=== PATIENT | male | born 1955 | race Caucasian/White ===

== ENCOUNTER 2016-05-26 13:38 | Inpatient (IN) | payer OTHER ==
--- NOTE | 2016-05-26 15:10 | ED ---
Abdominal Pain HPI <Sherman Lai - Last Filed: 05/26/16 17:21> - General Source: patient, RN notes reviewed Mode of arrival: ambulatory Limitations: no limitations <Anabel Enciso - Last Filed: 05/26/16 17:29> - General Chief Complaint: Abdominal Pain Stated Complaint: Abdominal blockage Time Seen by Provider: 05/26/16 15:02 - History of Present Illness Initial Comments: 61-year-old male presents emergency department with a chief complaint of abdominal pain. Patient states this developed today. Patient has a long history of bowel obstructions and has had a resection the past. Patient states he has no nausea or vomiting. Patient states last passed gas and had a bowel movement was this morning. Patient states he was concerned because his belly feels bloated and diffusely tender so he thought that he should be seen. Patient denies any cough cold runny nose any fever chills this. Patient seen changes in bladder habits.Patient denies any recent fever, chills, shortness of breath, chest pain, back pain, nausea vomiting, numbness or tingling, dysuria or hematuria, diarrhea, headaches or visual changes, or any other current symptoms. (Anabel Enciso) - Related Data Home Medications Medication Instructions Recorded Confirmed Ascorbic Acid [Vitamin C] 1,000 mg PO BID 04/04/15 05/26/16 Calcium Carbonate/Vitamin D3 2 tab PO TID 04/04/15 05/26/16 [Calcium 600-Vit D3 400 Tablet] Multivitamins, Thera [Multivitamin] 2 tab PO BID 04/04/15 05/26/16 Selenium 200 mcg PO DAILY 04/04/15 05/26/16 Tamsulosin HCl 0.4 mg PO HS 04/20/15 05/26/16 Docusate [Colace] 100 mg PO DAILY PRN 07/05/15 05/26/16 Omeprazole [PriLOSEC] 20 mg PO AC-BRKFST 07/05/15 05/26/16 Fiber Bar 1 pack PO DAILY 05/26/16 05/26/16 Fish Oil/Dha/Epa [Fish Oil 1,200 1 cap PO DAILY 05/26/16 05/26/16 mg Fish Oil] Folic Acid 0.8 mg PO DAILY 05/26/16 05/26/16 Hyoscyamine Sulfate [Hyoscyamine 0.125 mg SL DAILY PRN 05/26/16 05/26/16 Sulfate SL] Allergies Allergy/AdvReac Type Severity Reaction Status Date / Time Penicillins Allergy Rash/Hives, Verified 05/26/16 16:08 WHEEZING Review of Systems ROS Other: All systems not noted in ROS Statement are negative. <Sherman Lai - Last Filed: 05/26/16 17:21> ROS Other: All systems not noted in ROS Statement are negative. <Anabel Enciso - Last Filed: 05/26/16 17:29> ROS Statement: Those systems with pertinent positive or pertinent negative responses have been documented in the HPI. Past Medical History Past Medical History: Cancer, Deep Vein Thrombosis (DVT), GERD/Reflux, Hyperlipidemia, Pneumonia Additional Past Medical History / Comment(s): 04-20-16 admitted with abd pain, small bowel obstruction. other past medical hx includes: BASAL CELL SKIN CA, DVT LEFT LOWER LEG, BLOOD CLOT RIGHT EYE, bronchitis , SMALL bowel obstruction , C-DIFF 2009, PNE W/SIRS,BRONCHITIS,SINUSITIS History of Any Multi-Drug Resistant Organisms: C-DIFF Date of last positivie culture/infection: 2009 MDRO Source:: Stool Past Surgical History: Adenoidectomy, Bowel Resection, Cholecystectomy, Hernia Repair, Tonsillectomy Additional Past Surgical History / Comment(s): colonoscopy/polypectomy(BENIGN), EGD,TONSILLECTOMY AND ADENOIDECTOMY X2 (AGE 1 AND AGE 12),EXPLORATORY LAP W/ LYSIS OF ADHSEIONS,DECOMPRESSION OF SMALL BOWEL, yamileth fundloplication Past Anesthesia/Blood Transfusion Reactions: No Reported Reaction Past Psychological History: No Psychological Hx Reported Additional Psychological History / Comment(s): PT LIVES WITH HIS GILBERTO, 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 Smoking Status: Never smoker Past Alcohol Use History: None Reported Additional Past Alcohol Use History / Comment(s): Patient is a lifelong nonsmoker. He does have medical marijuana card and uses daily due to his chronic back pain. He denies any street drug use. He denies any alcohol use. He is currently living at home with his . 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 He has been in the [place] and is unknown if he has asbestos EXPOSURE. . No recent travel. Past Drug Use History: None Reported, Marijuana Additional Drug Use History / Comment(s): -MEDICAL CARD - Past Family History Mother Family Medical History: Cancer Additional Family Medical History / Comment(s): Emphysema, heart problems, COLON CANCER Father Additional Family Medical History / Comment(s): COLON CA LIVER CA,MULTIPLE MYELOMA <Anabel Enciso - Last Filed: 05/26/16 17:29> General Exam <Sherman Lai - Last Filed: 05/26/16 17:21> Limitations: no limitations <Anabel Enciso - Last Filed: 05/26/16 17:29> - General Exam Comments Initial Comments: General: The patient is awake and alert, in no distress, and does not appear acutely ill. Eye: Pupils are equal, round and reactive to light, extra-ocular movements are intact; there is normal conjunctiva bilaterally. No signs of icterus. Ears, nose, mouth and throat: There are moist mucous membranes. Neck: The neck is supple, there is no tenderness. Cardiovascular: There is a regular rate and rhythm. No murmur, rub or gallop is appreciated. Respiratory: Lungs are clear to auscultation, respirations are non-labored, breath sounds are equal. No wheezes, stridor, rales, or rhonchi. Gastrointestinal: Soft, distended, non-tender abdomen without masses or organomegaly noted. There is no rebound or guarding present. No CVA tenderness. Bowel sounds are unremarkable. Back: There is no tenderness to palpation in the midline. There is no obvious deformity. No rashes noted. Musculoskeletal: Normal ROM, no tenderness, There is no pedal edema. There is no calf tenderness or swelling. Sensation intact. Pulses equal bilaterally 2+. Neurological: CN II-XII intact, There are no obvious motor or sensory deficits. Coordination appears grossly intact. Speech is normal. Skin: Skin is warm and dry and no rashes or lesions are noted. Psychiatric: Cooperative, appropriate mood & affect, normal judgment. (Anabel Enciso) Medical Decision Making - Lab Data Result diagrams: 05/26/16 15:30 05/26/16 15:30 <Sherman Lai - Last Filed: 05/26/16 17:21> - Lab Data Result diagrams: 05/26/16 15:30 05/26/16 15:30 - Radiology Data Radiology results: report reviewed, image reviewed <Anabel Enciso - Last Filed: 05/26/16 17:29> - Medical Decision Making Patient reevaluated by myself Dr. Lai. Patient does have mild abdominal distention with mild diffuse tenderness. Computed tomography scan shows dilated small bowel, cannot rule out partial small bowel obstruction. Case discussed in detail with Dr. Padilla, who will admit for Dr. reyna. Patient has previously seen Dr. Fu (Sherman Lai) 61-year-old male presents to the emergency Department chief complaint of abdominal pain. At this time the patient does appear to have a dilated small bowel with concern for partial small bowel obstruction. This time we will admit to Dr. Robin canela. Dr. Hess will be consult that we will start an NG tube as well as pain medication for the patient. Patient and family are in agreement with the plan. (Anabel Enciso) - Lab Data Lab Results 05/26/16 05/26/16 05/26/16 Range/Units 15:30 15:30 15:30 WBC 8.2 (3.8-10.6) k/uL RBC 4.82 (4.30-5.90) m/uL Hgb 14.8 (13.0-17.5) gm/dL Hct 43.3 (39.0-53.0) % MCV 89.8 (80.0-100.0) fL MCH 30.6 (25.0-35.0) pg MCHC 34.1 (31.0-37.0) g/dL RDW 13.2 (11.5-15.5) % Plt Count 201 (150-450) k/uL Neutrophils % 63 % Lymphocytes % 20 % Monocytes % 9 % Eosinophils % 4 % Basophils % 1 % Neutrophils # 5.2 (1.3-7.7) k/uL Lymphocytes # 1.7 (1.0-4.8) k/uL Monocytes # 0.7 (0-1.0) k/uL Eosinophils # 0.3 (0-0.7) k/uL Basophils # 0.1 (0-0.2) k/uL Sodium 141 (137-145) mmol/L Potassium 4.3 (3.5-5.1) mmol/L Chloride 105 (98-107) mmol/L Carbon Dioxide 27 (22-30) mmol/L Anion Gap 9 mmol/L BUN 15 (9-20) mg/dL Creatinine 0.75 (0.66-1.25) mg/dL Est GFR (MDRD) Af Amer >60 (>60 ml/min/1.73 sqM) Est GFR (MDRD) Non-Af >60 (>60 ml/min/1.73 sqM) Glucose 91 (74-99) mg/dL Plasma Lactic Acid [place] 0.8 (0.7-2.0) mmol/L Calcium 9.6 (8.4-10.2) mg/dL Total Bilirubin 0.7 (0.2-1.3) mg/dL AST 29 (17-59) U/L ALT 49 (21-72) U/L Alkaline Phosphatase 74 (38-126) U/L Total Protein 7.0 (6.3-8.2) g/dL Albumin 4.0 (3.5-5.0) g/dL Amylase <30 L (30-110) U/L Lipase <10 L (23-300) U/L Urine Color Urine Appearance (Clear) Urine pH (5.0-8.0) Ur Specific [place] (1.001-1.035) Urine Protein (Negative) Urine Glucose (UA) (Negative) Urine Ketones (Negative) Urine Blood (Negative) Urine Nitrate (Negative) Urine Bilirubin (Negative) Urine Urobilinogen (<2.0) mg/dL Ur Leukocyte Esterase (Negative) 05/26/16 Range/Units 15:30 WBC (3.8-10.6) k/uL RBC (4.30-5.90) m/uL Hgb (13.0-17.5) gm/dL Hct (39.0-53.0) % MCV (80.0-100.0) fL MCH (25.0-35.0) pg MCHC (31.0-37.0) g/dL RDW (11.5-15.5) % Plt Count (150-450) k/uL Neutrophils % % Lymphocytes % % Monocytes % % Eosinophils % % Basophils % % Neutrophils # (1.3-7.7) k/uL Lymphocytes # (1.0-4.8) k/uL Monocytes # (0-1.0) k/uL Eosinophils # (0-0.7) k/uL Basophils # (0-0.2) k/uL Sodium (137-145) mmol/L Potassium (3.5-5.1) mmol/L Chloride (98-107) mmol/L Carbon Dioxide (22-30) mmol/L Anion Gap mmol/L BUN (9-20) mg/dL Creatinine (0.66-1.25) mg/dL Est GFR (MDRD) Af Amer (>60 ml/min/1.73 sqM) Est GFR (MDRD) Non-Af (>60 ml/min/1.73 sqM) Glucose (74-99) mg/dL Plasma Lactic Acid [place] (0.7-2.0) mmol/L Calcium (8.4-10.2) mg/dL Total Bilirubin (0.2-1.3) mg/dL AST (17-59) U/L ALT (21-72) U/L Alkaline Phosphatase (38-126) U/L Total Protein (6.3-8.2) g/dL Albumin (3.5-5.0) g/dL Amylase (30-110) U/L Lipase (23-300) U/L Urine Color Yellow Urine Appearance Clear (Clear) Urine pH 6.5 (5.0-8.0) Ur Specific [place] 1.014 (1.001-1.035) Urine Protein Negative (Negative) Urine Glucose (UA) Negative (Negative) Urine Ketones Negative (Negative) Urine Blood Negative (Negative) Urine Nitrate Negative (Negative) Urine Bilirubin Negative (Negative) Urine Urobilinogen <2.0 (<2.0) mg/dL Ur Leukocyte Esterase Negative (Negative) Disposition <Sherman Lai - Last Filed: 05/26/16 17:21> Time of Disposition: 17:29 Decision Date: 05/26/16 Decision Time: 17:29 <Anabel Enciso - Last Filed: 05/26/16 17:29> Clinical Impression: Small bowel obstruction, Abdominal pain Disposition: ADMITTED IP TO THIS [facility] Condition: Stable
[2016-05-26] MEDS ORDERED: RX INFO: IV CONTRAST WAS GIVEN 1 EACH MISC MISCELLANE PRN (15:11)
[2016-05-26] MEDS ORDERED: SODIUM CHLORIDE 0.9% 1,000 ML IV STA (15:11)
[2016-05-26] MEDS ORDERED: HYDROmorphone 1 MG/ML 1 ML SYRINGE IVP STA (15:11)
[2016-05-26 16:00] LABS: Appearance,Urine Clear (Clear); Basophils # (A) 0.1 k/uL (0-0.2); Basophils % (A) 1 %; Bilirubin,Urine Negative (Negative); CH 31.9; CHCM 35.7; Eosinophils # (A) 0.3 k/uL (0-0.7); Eosinophils % (A) 4 %; Glucose,Urine (UA) Negative (Negative); HCT 43.3 % (39.0-53.0); HDW 2.88; HGB 14.8 gm/dL (13.0-17.5); Ketones,Urine Negative (Negative); Leukocyte Esterase,Urine Negative (Negative); Luc # (Auto) 0.25; Luc % (Auto) 3; Lymphocytes # (A) 1.7 k/uL (1.0-4.8); Lymphocytes % (A) 20 %; MCH 30.6 pg (25.0-35.0); MCHC 34.1 g/dL (31.0-37.0); MCV 89.8 fL (80.0-100.0); Mean Platelet Volume 7.6; Monocytes # (A) 0.7 k/uL (0-1.0); Monocytes % (A) 9 %; Neutrophils # (A) 5.2 k/uL (1.3-7.7); Neutrophils % (A) 63 %; Nitrite,Urine Negative (Negative); PH, Urine 6.5 (5.0-8.0); Protein,Urine Negative (Negative); RBC 4.82 m/uL (4.30-5.90); RDW 13.2 % (11.5-15.5); Specific Gravity,Urine 1.014 (1.001-1.035); UA Billing (MACRO vs. MICRO) CHEM; Urobilinogen,Urine <2.0 mg/dL (<2.0); WBC 8.2 k/uL (3.8-10.6); WBC (Perox) 8.06
[2016-05-26 16:10] LABS: ALT 49 U/L (21-72); AST 29 U/L (17-59); Alkaline Phosphatase 74 U/L (38-126); Amylase <30 U/L (30-110); Anion Gap 9 mmol/L; Blood Urea Nitrogen 15 mg/dL (9-20); Calcium 9.6 mg/dL (8.4-10.2); Carbon Dioxide 27 mmol/L (22-30); Chloride 105 mmol/L (98-107); Glucose 91 mg/dL (74-99); Non-African American GFR(MDRD) >60 (>60 ml/min/1.73 sqM); Potassium 4.3 mmol/L (3.5-5.1); Sodium 141 mmol/L (137-145); Total Bilirubin 0.7 mg/dL (0.2-1.3)
--- NOTE | 2016-05-26 16:49 | CT ---
EXAMINATION TYPE: CT abdomen pelvis w con DATE OF EXAM: 05/26/2016 4:29 PM COMPARISON: Prior CT abdomen pelvis 20 April 2015 HISTORY: Pt states of abdominal pain. Hx of small bowel obstructions. CT DLP: 1726.7 mGycm Automated exposure control for dose reduction was used. TECHNIQUE: Helical acquisition of images from the lung bases through the pelvis have been completed. CONTRAST: Performed without Oral Contrast and with IV Contrast, patient injected with 100 mL of Omnipaque 300. FINDINGS: LUNG BASES: Minimal dependent atelectatic changes are present, there is no pleural or pericardial eff usion. Coronary artery calcifications are present. There is a small hiatal hernia or dilation of the distal esophagus due to fundoplication. AORTA: No significant abnormality is appreciated. LIVER/GB: The liver shows low attenuation likely due to fatty infiltration. The gallbladder is absent . PANCREAS: No significant abnormality is seen. SPLEEN: No significant abnormality is seen. ADRENALS: No significant abnormality is seen. KIDNEYS: Renal cyst on the right and left again noted. No hydronephrosis. REPRODUCTIVE ORGANS: Prostate shows associated calcification is stable in appearance. BOWEL: Diverticular change is extensive in the sigmoid colon. There is associated wall thickening. S mall bowel loops show dilation in the left hemiabdomen, there are areas of abnormal wall thickening. Small bowel loops are relatively decompressed in the right hemiabdomen. A definitive transition point is not identified certainty however. Fluid-filled loops of small bowel are present. Postop changes a re also present. FREE AIR: No Free Air visible ASCITES: None visible. PELVIC ADENOPATHY: None visualized. RETROPERITONEAL ADENOPATHY: No Retroperitoneal Adenopathy visible. URINARY BLADDER: No significant abnormality is seen. OSSEOUS STRUCTURES: No significant abnormality is seen. IMPRESSION: FINDINGS COULD REPRESENT ILEUS, ENTERITIS, DIFFICULT TO EXCLUDE A PARTIAL SMALL BOWEL OBSTRUCTION. TH ERE IS SMALL BOWEL DILATION, POSTOP CHANGE. FOLLOW-UP IS RECOMMENDED INDICATED. ADDITIONAL FINDING S ABOVE.
[2016-05-26] MEDS ORDERED: NALOXONE 0.4 MG/ML 1 ML VIAL IV PRN (17:29)
[2016-05-26] MEDS ORDERED: LORazepam 2 MG/ML SYRINGE IV PRN (17:29)
[2016-05-26] MEDS ORDERED: HYDROcodone/APAP 5-325MG 1 EACH TAB PO PRN (17:29)
[2016-05-26] MEDS ORDERED: HYOSCYAMINE ORAL DROPS 1.875 MG/15 ML BOTTLE SUBLINGUAL PRN (17:30)
[2016-05-26] MEDS ORDERED: DOCUSATE 100 MG CAP PO PRN (17:30)
[2016-05-26] MEDS: SODIUM CHLORIDE 0.9% 1,000 ML IV SCH (17:42)
[2016-05-26] MEDS: HYDROmorphone 1 MG/ML 1 ML SYRINGE IV PRN ×3 (17:43→23:31)
[2016-05-26] MEDS: ASCORBIC ACID 500 MG TAB PO SCH (20:57)
[2016-05-26] MEDS: TAMSULOSIN 0.4 MG CAP.ER.24H PO SCH (20:57)
[2016-05-26] MEDS: MULTIVITAMINS, THERA 1 EACH TAB PO SCH (20:57)
[2016-05-26] MEDS: CALCIUM CARB-VIT D 500MG-200UN 1 EACH TAB PO SCH (20:58)
[2016-05-27 00:18] VITALS: BMI 33.2
[2016-05-27] MEDS: HYDROmorphone 1 MG/ML 1 ML SYRINGE IV PRN ×7 (02:42→22:29)
[2016-05-27] MEDS: SODIUM CHLORIDE 0.9% 1,000 ML IV SCH ×3 (02:42→22:29)
[2016-05-27] MEDS ORDERED: PANTOPRAZOLE 40 MG TABLET PO SCH (07:30)
[2016-05-27 09:00] LABS: ALT 45 U/L (21-72); AST 23 U/L (17-59); Alkaline Phosphatase 68 U/L (38-126); Anion Gap 8 mmol/L; Blood Urea Nitrogen 12 mg/dL (9-20); Calcium 8.5 mg/dL (8.4-10.2); Carbon Dioxide 26 mmol/L (22-30); Chloride 105 mmol/L (98-107); Glucose 90 mg/dL (74-99); Non-African American GFR(MDRD) >60 (>60 ml/min/1.73 sqM); Potassium 4.1 mmol/L (3.5-5.1); Sodium 139 mmol/L (137-145); Total Bilirubin 0.8 mg/dL (0.2-1.3); Total Protein 6.3 g/dL (6.3-8.2)
[2016-05-27] MEDS ORDERED: NON-FORMULARY DRUG (Selenium [Selenium] 200 MCG) PO SCH (09:00)
[2016-05-27] MEDS ORDERED: [UNRECOGNIZED DRUG - OTHER] PO SCH (09:00)
[2016-05-27] MEDS ORDERED: NON-FORMULARY DRUG (Fish Oil/Dha/Epa [Fish Oil 1,200 Mg Fish Oil] 1 CAP) PO SCH (09:00)
[2016-05-27 09:04] LABS: Basophils % (A) 0 %; CH 31.6; CHCM 34.5; Eosinophils # (A) 0.3 k/uL (0-0.7); Eosinophils % (A) 4 %; HDW 2.83; HGB 14.1 gm/dL (13.0-17.5); Luc # (Auto) 0.24; Luc % (Auto) 3; Lymphocytes # (A) 1.3 k/uL (1.0-4.8); Lymphocytes % (A) 16 %; MCH 30.9 pg (25.0-35.0); MCHC 33.6 g/dL (31.0-37.0); MCV 92.1 fL (80.0-100.0); Mean Platelet Volume 7.1; Monocytes # (A) 0.6 k/uL (0-1.0); Monocytes % (A) 8 %; Neutrophils # (A) 5.8 k/uL (1.3-7.7); Neutrophils % (A) 70 %; RBC 4.56 m/uL (4.30-5.90); RDW 13.2 % (11.5-15.5); WBC 8.3 k/uL (3.8-10.6); WBC (Perox) 8.64
[2016-05-27] MEDS: CALCIUM CARB-VIT D 500MG-200UN 1 EACH TAB PO SCH ×3 (09:45→20:21)
[2016-05-27] MEDS: ASCORBIC ACID 500 MG TAB PO SCH ×2 (09:45→20:21)
[2016-05-27] MEDS: MULTIVITAMINS, THERA 1 EACH TAB PO SCH ×2 (09:46→20:21)
[2016-05-27] MEDS: FOLIC ACID 1 MG TAB PO SCH (09:46)
--- NOTE | 2016-05-27 12:31 | P.HPIM ---
History of Present Illness H&P Date: 05/27/16 Chief Complaint: Abdominal pain This is a 61-year-old male, patient of Dr. Swanson. He has a known past medical history of previous small bowel obstruction requiring resection and he has also had expiratory laparotomy with lysis of adhesions in March 2015 for small bowel obstruction. Patient also has a history of DVT of the lower extremity, GERD, hyperlipidemia, C. diff and a blood clot in the right eye due to medication side effect. Patient reports abdominal pain had started on Friday evening. He was able to go to work. Basic Friday morning pain was more severe across the whole abdomen. It's more of achy pain. He had one bowel movement on Friday morning which was more loose than usual. Said his bowel movements are multiple but normal. Mostly normal in color. However he did have one yellowish stool. He denies any nausea or vomiting. Denies any fevers chills or sweats. Denies any chest pain or shortness of breath. Denies any urinary symptoms. Patient does report this feels similar to his previous bowel obstructions. He was then admitted to regular medical floor. Surgery has been consulted. NG tube was placed for possible small bowel obstruction. Computed tomography scan of the abdomen shows ileus, enteritis, difficult to exclude a partial small bowel obstruction. There is small bowel dilation. Review of Systems Please refer to HPI otherwise unremarkable Past Medical History Past Medical History: Cancer, Deep Vein Thrombosis (DVT), GERD/Reflux, Hyperlipidemia, Pneumonia Additional Past Medical History / Comment(s): 04-20-16 admitted with abd pain, small bowel obstruction. other past medical hx includes: BASAL CELL SKIN CA, DVT LEFT LOWER LEG, BLOOD CLOT RIGHT EYE, bronchitis , SMALL bowel obstruction , C-DIFF 2009, PNE W/SIRS,BRONCHITIS,SINUSITIS History of Any Multi-Drug Resistant Organisms: None Reported Date of last positivie culture/infection: None MDRO Source:: None Past Surgical History: Adenoidectomy, Bowel Resection, Cholecystectomy, Hernia Repair, Tonsillectomy Additional Past Surgical History / Comment(s): colonoscopy/polypectomy(BENIGN), EGD,TONSILLECTOMY AND ADENOIDECTOMY X2 (AGE 1 AND AGE 12),EXPLORATORY LAP W/ LYSIS OF ADHSEIONS,DECOMPRESSION OF SMALL BOWEL, yamileth fundloplication Past Anesthesia/Blood Transfusion Reactions: No Reported Reaction Past Psychological History: No Psychological Hx Reported Additional Psychological History / Comment(s): PT LIVES WITH HIS GILBERTO, 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 Smoking Status: Never smoker Past Alcohol Use History: None Reported Additional Past Alcohol Use History / Comment(s): Patient is a lifelong nonsmoker. He does have medical marijuana but states he hasn't smoked marijuana in a very long time (over a year). He denies any street drug use. He denies any alcohol use. He is currently living at home with his . 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 He has been in the [employer] and is unknown if he has asbestos EXPOSURE. . No recent travel. Past Drug Use History: None Reported, Marijuana Additional Drug Use History / Comment(s): -MEDICAL CARD - Past Family History Mother Family Medical History: Cancer Additional Family Medical History / Comment(s): Emphysema, heart problems, COLON CANCER Father Additional Family Medical History / Comment(s): COLON CA LIVER CA,MULTIPLE MYELOMA Medications and Allergies Home Medications Medication Instructions Recorded Confirmed Type Ascorbic Acid [Vitamin C] 1,000 mg PO BID 04/04/15 05/26/16 History Calcium Carbonate/Vitamin D3 2 tab PO TID 04/04/15 05/26/16 History [Calcium 600-Vit D3 400 Tablet] Multivitamins, Thera [Multivitamin] 2 tab PO BID 04/04/15 05/26/16 History Selenium 200 mcg PO DAILY 04/04/15 05/26/16 History Tamsulosin HCl 0.4 mg PO HS 04/20/15 05/26/16 History Docusate [Colace] 100 mg PO DAILY PRN 07/05/15 05/26/16 History Omeprazole [PriLOSEC] 20 mg PO AC-BRKFST 07/05/15 05/26/16 History Fiber Bar 1 pack PO DAILY 05/26/16 05/26/16 History Fish Oil/Dha/Epa [Fish Oil 1,200 1 cap PO DAILY 05/26/16 05/26/16 History mg Fish Oil] Folic Acid 0.8 mg PO DAILY 05/26/16 05/26/16 History Hyoscyamine Sulfate [Hyoscyamine 0.125 mg SL DAILY PRN 05/26/16 05/26/16 History Sulfate SL] Allergies Allergy/AdvReac Type Severity Reaction Status Date / Time Penicillins Allergy Rash/Hives, Verified 05/26/16 16:08 WHEEZING Physical Exam Vitals: Vital Signs Temp Pulse Pulse Resp BP BP Pulse Ox 05/27/16 07:00 98.2 F 86 16 111/68 94 L 05/27/16 01:00 96.9 F L 76 20 126/70 92 L 05/27/16 00:00 76 05/26/16 17:41 97.4 F L 73 16 122/80 98 Intake and Output 05/26/16 05/27/16 05/27/16 22:59 06:59 14:59 Output Total 0 376 450 Balance 0 -376 -450 Output: Gastric Drainage 50 Urine 0 376 400 Other: Voiding Method Urinal Urinal # Voids 1 1 Weight 111 kg Head normocephalic Neck supple Lungs clear to auscultation bilaterally no wheezing or crackles Heart regular rate and rhythm S1-S2, no rub or gallop Abdomen is soft diffuse tenderness. Positive hypoactive bowel sounds. NG tube in place with light brownish color output. Extremities no edema Neuro alert and orientated to 3 Results CBC & Chem 7: 05/27/16 08:12 05/27/16 08:12 Thrombosis Risk Factor Assmnt - Choose All That Apply Any of the Below Risk Factors Present?: Yes Each Factor Represents 1 point: Obesity (BMI >25) Other Risk Factors: Yes Each Risk Factor Represents 2 Points: Age 61-74 years Each Risk Factor Represents 3 Points: History of DVT/PE Thrombosis Risk Factor Assessment Total Risk Factor Score: 6 Thrombosis Risk Factor Assessment Level: High Risk Assessment and Plan Plan: 1. Abdominal pain possibly due to ileus versus small bowel obstruction. Computed tomography scan of the abdomen findings could represent ileus, enteritis, difficult to exclude a partial small bowel obstruction. There is evidence of small bowel dilation. Patient currently has NG tube in place. Surgery has been consulted. Continue with IV Dilaudid for pain control and IV fluids. Patient is currently passing gas. 2. History of left lower extremity DVT and had completed anticoagulation treatment several years ago. Patient was recently discontinued from his daily aspirin by his PCP. Patient also noted to have a history of a blood clot in the eye and was told it was due to a medication side effect of Cialis 3. History of BPH continue Flomax 4. History of GERD continue Protonix 5. History of previous bowel obstructions requiring bowel resection as well as lysis of adhesions GI prophylaxis Protonix and DVT prophylaxis subcu heparin Time with Patient: Greater than 30 (Greater than 50% of the total time spent in counseling and coordination of care.I performed an examination of the patient and discussed their management with the physician Web Design Instructor. I have reviewed the Physician Web Design Instructor's notes and agree with the documented findings and plan of care)
[2016-05-27] MEDS ORDERED: PANTOPRAZOLE 40 MG/10 ML VIAL IVP SCH (13:00)
--- NOTE | 2016-05-27 13:23 | XR ---
EXAMINATION TYPE: XR abdomen 2V DATE OF EXAM: 05/27/2016 1:19 PM COMPARISON: 07/05/2015 HISTORY: Bowel obstruction FINDINGS: The osseous structures are intact. The bowel gas pattern is nonspecific. Dilated bowel loops with ai r-fluid levels noted. NG tube is high in position within the distal esophagus. Arthropathy of the hips. Hypertrophic change of the spine. IMPRESSION: 1. NG tube is high in position within the distal esophagus consider advancement of the ET tube. 2. Persistent dilated small bowel loops with air-fluid levels in a pattern still suspicious for parti al obstruction..
--- NOTE | 2016-05-27 16:03 | P.GSCN ---
History of Present Illness Consult date: 05/27/16 Reason for Consult: Small bowel obstruction Requesting physician: Anabel Encsio History of present illness: Patient is a 60-year-old male, patient of Dr. Swanson in the outpatient setting. Patient has a medical history significant for GERD, previous small bowel obstructions, and exploratory laparotomy with lysis of adhesions and decompression of small bowel on 03/28/2015. Patient presented to the emergency department with complaints of abdominal pain that started on Friday. Patient states he was unable to pass gas and the pain got worse. No history of fevers, chills, nausea, vomiting, diarrhea or constipation. CT of abdomen with evidence of diverticular changes in the sigmoid colon associated with wall thickening. Small bowel loops show dilation in the left hemiabdomen, areas of abnormal wall thickening. Small bowel loops are relatively decompressed in the right hemiabdomen. Definite transition point is not identified. Fluid-filled loops of small bowel present. Nasogastric tube was placed for possible small bowel obstruction. Upon examination, patient is feeling better. Passing flatus without bowel movement. Urinating without difficulty. Patient currently complains of abdominal pain rated 2 out of 10. Nasogastric drainage with 50 mL of dark brown drainage. Afebrile. No evidence of leukocytosis. Past Medical History Past Medical History: Cancer, Deep Vein Thrombosis (DVT), GERD/Reflux, Hyperlipidemia, Pneumonia Additional Past Medical History / Comment(s): 04-20-16 admitted with abd pain, small bowel obstruction. other past medical hx includes: BASAL CELL SKIN CA, DVT LEFT LOWER LEG, BLOOD CLOT RIGHT EYE, bronchitis , SMALL bowel obstruction , C-DIFF 2009, PNE W/SIRS,BRONCHITIS,SINUSITIS History of Any Multi-Drug Resistant Organisms: None Reported Year Discovered:: None MDRO Source:: None Past Surgical History: Adenoidectomy, Bowel Resection, Cholecystectomy, Hernia Repair, Tonsillectomy Additional Past Surgical History / Comment(s): colonoscopy/polypectomy(BENIGN), EGD,TONSILLECTOMY AND ADENOIDECTOMY X2 (AGE 1 AND AGE 12),EXPLORATORY LAP W/ LYSIS OF ADHSEIONS,DECOMPRESSION OF SMALL BOWEL, yamileth fundloplication Past Anesthesia/Blood Transfusion Reactions: No Reported Reaction Past Psychological History: No Psychological Hx Reported Additional Psychological History / Comment(s): PT LIVES WITH HIS GILBERTO, 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 Smoking Status: Never smoker Past Alcohol Use History: None Reported Additional Past Alcohol Use History / Comment(s): Patient is a lifelong nonsmoker. He does have medical marijuana but states he hasn't smoked marijuana in a very long time (over a year). He denies any street drug use. He denies any alcohol use. He is currently living at home with his . 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 He has been in the [employer] and is unknown if he has asbestos EXPOSURE. . No recent travel. Past Drug Use History: None Reported, Marijuana Additional Drug Use History / Comment(s): -MEDICAL CARD - Past Family History Mother Family Medical History: Cancer Additional Family Medical History / Comment(s): Emphysema, heart problems, COLON CANCER Father Additional Family Medical History / Comment(s): COLON CA LIVER CA,MULTIPLE MYELOMA Medications and Allergies Home Medications Medication Instructions Recorded Confirmed Type Ascorbic Acid [Vitamin C] 1,000 mg PO BID 04/04/15 05/26/16 History Calcium Carbonate/Vitamin D3 2 tab PO TID 04/04/15 05/26/16 History [Calcium 600-Vit D3 400 Tablet] Multivitamins, Thera [Multivitamin] 2 tab PO BID 04/04/15 05/26/16 History Selenium 200 mcg PO DAILY 04/04/15 05/26/16 History Tamsulosin HCl 0.4 mg PO HS 04/20/15 05/26/16 History Docusate [Colace] 100 mg PO DAILY PRN 07/05/15 05/26/16 History Omeprazole [PriLOSEC] 20 mg PO AC-BRKFST 07/05/15 05/26/16 History Fiber Bar 1 pack PO DAILY 05/26/16 05/26/16 History Fish Oil/Dha/Epa [Fish Oil 1,200 1 cap PO DAILY 05/26/16 05/26/16 History mg Fish Oil] Folic Acid 0.8 mg PO DAILY 05/26/16 05/26/16 History Hyoscyamine Sulfate [Hyoscyamine 0.125 mg SL DAILY PRN 05/26/16 05/26/16 History Sulfate SL] Allergies Allergy/AdvReac Type Severity Reaction Status Date / Time Penicillins Allergy Rash/Hives, Verified 05/26/16 16:08 WHEEZING Surgical - Exam Vital Signs Temp Pulse Resp BP Pulse Ox 98 F 85 18 123/56 95 05/26/16 14:15 05/26/16 14:15 05/26/16 14:15 05/26/16 14:15 05/26/16 14:15 GENERAL: Pt awake and alert, well-appearing, well-nourished, and in no acute distress. ENT: Nasogastric tube to low intermittent suction. LUNGS: Breath sounds clear to auscultation bilaterally. No wheezes, rales, or rhonchi. HEART: Heart S1, S2, no S3 or S4. Regular rate and rhythm. No murmurs, rubs or gallops. ABDOMEN: Soft, obese, mild diffuse tenderness, nondistended, normoactive bowel sounds. No guarding, no rebound. No masses or organomegaly appreciated. NEUROLOGICAL: Pt oriented x 3. Results - Labs 05/27/16 08:12 05/27/16 08:12 Diabetes panel 05/27/16 Range/Units 08:12 Sodium 139 (137-145) mmol/L Potassium 4.1 (3.5-5.1) mmol/L Chloride 105 (98-107) mmol/L Carbon Dioxide 26 (22-30) mmol/L BUN 12 (9-20) mg/dL Creatinine 0.75 (0.66-1.25) mg/dL Glucose 90 (74-99) mg/dL Calcium 8.5 (8.4-10.2) mg/dL AST 23 (17-59) U/L ALT 45 (21-72) U/L Alkaline Phosphatase 68 (38-126) U/L Total Protein 6.3 (6.3-8.2) g/dL Albumin 3.6 (3.5-5.0) g/dL Calcium panel 05/27/16 Range/Units 08:12 Calcium 8.5 (8.4-10.2) mg/dL Albumin 3.6 (3.5-5.0) g/dL Pituitary panel 05/27/16 Range/Units 08:12 Sodium 139 (137-145) mmol/L Potassium 4.1 (3.5-5.1) mmol/L Chloride 105 (98-107) mmol/L Carbon Dioxide 26 (22-30) mmol/L BUN 12 (9-20) mg/dL Creatinine 0.75 (0.66-1.25) mg/dL Glucose 90 (74-99) mg/dL Calcium 8.5 (8.4-10.2) mg/dL Adrenal panel 05/27/16 Range/Units 08:12 Sodium 139 (137-145) mmol/L Potassium 4.1 (3.5-5.1) mmol/L Chloride 105 (98-107) mmol/L Carbon Dioxide 26 (22-30) mmol/L BUN 12 (9-20) mg/dL Creatinine 0.75 (0.66-1.25) mg/dL Glucose 90 (74-99) mg/dL Calcium 8.5 (8.4-10.2) mg/dL Total Bilirubin 0.8 (0.2-1.3) mg/dL AST 23 (17-59) U/L ALT 45 (21-72) U/L Alkaline Phosphatase 68 (38-126) U/L Total Protein 6.3 (6.3-8.2) g/dL Albumin 3.6 (3.5-5.0) g/dL - Imaging CT scan - abdomen: report reviewed CT scan - pelvis: report reviewed Assessment and Plan Plan: Impression: 1. Abdominal pain suspect from partial small bowel obstruction, improved. Plan: 1. Discontinue nasogastric tube. Start patient on a clear liquid diet and advance as tolerated. Continue supportive care treatment. Continue IV hydration. Continue to follow with medical team. The above impression and plan have been discussed and directed by Dr. Fu. Andre ROMEO acting as scribe for Dr. Fu.
[2016-05-27] MEDS: TAMSULOSIN 0.4 MG CAP.ER.24H PO SCH (20:21)
[2016-05-27] MEDS: HEPARIN SODIUM,PORCINE 5,000 UNIT/ML 1 ML VIAL SQ SCH (20:21)
[2016-05-28] MEDS: HYDROmorphone 1 MG/ML 1 ML SYRINGE IV PRN ×7 (04:45→23:01)
[2016-05-28] MEDS: ASCORBIC ACID 500 MG TAB PO SCH ×2 (07:58→20:02)
[2016-05-28] MEDS: CALCIUM CARB-VIT D 500MG-200UN 1 EACH TAB PO SCH ×3 (07:59→20:03)
[2016-05-28] MEDS: MULTIVITAMINS, THERA 1 EACH TAB PO SCH ×2 (07:59→20:03)
[2016-05-28] MEDS: FOLIC ACID 1 MG TAB PO SCH (07:59)
[2016-05-28] MEDS: HEPARIN SODIUM,PORCINE 5,000 UNIT/ML 1 ML VIAL SQ SCH ×2 (07:59→20:02)
[2016-05-28 09:52] LABS: ALT 41 U/L (21-72); AST 26 U/L (17-59); Alkaline Phosphatase 71 U/L (38-126); Anion Gap 12 mmol/L; Blood Urea Nitrogen 10 mg/dL (9-20); Calcium 9.3 mg/dL (8.4-10.2); Carbon Dioxide 24 mmol/L (22-30); Chloride 105 mmol/L (98-107); Glucose 122 mg/dL (74-99); Non-African American GFR(MDRD) >60 (>60 ml/min/1.73 sqM); Sodium 141 mmol/L (137-145); Total Bilirubin 0.6 mg/dL (0.2-1.3); Total Protein 6.9 g/dL (6.3-8.2)
[2016-05-28 10:35] LABS: Basophils % (A) 1 %; CH 31.5; CHCM 34.3; Eosinophils # (A) 0.3 k/uL (0-0.7); Eosinophils % (A) 5 %; HCT 42.8 % (39.0-53.0); HDW 2.79; HGB 14.1 gm/dL (13.0-17.5); Luc # (Auto) 0.28; Luc % (Auto) 4; Lymphocytes # (A) 1.7 k/uL (1.0-4.8); Lymphocytes % (A) 26 %; MCH 30.4 pg (25.0-35.0); MCV 92.1 fL (80.0-100.0); Mean Platelet Volume 7.1; Monocytes # (A) 0.4 k/uL (0-1.0); Monocytes % (A) 6 %; Neutrophils # (A) 3.8 k/uL (1.3-7.7); Neutrophils % (A) 58 %; RBC 4.65 m/uL (4.30-5.90); RDW 13.2 % (11.5-15.5); WBC 6.4 k/uL (3.8-10.6); WBC (Perox) 6.24
[2016-05-28] MEDS: SODIUM CHLORIDE 0.9% 1,000 ML IV SCH (11:36)
--- NOTE | 2016-05-28 11:43 | P.PN ---
Subjective Principal diagnosis: Small bowel obstruction Patient is feeling better. Patient states abdominal pain has improved. Passing flatus without bowel movement. Urinating without difficulties. Tolerating clear liquid diet. Afebrile. Hemodynamically stable. WBC 6.4. Hemoglobin 14.1. Objective - Vital Signs Vital signs: Vital Signs Temp 98.3 F 05/28/16 07:00 Pulse 79 05/28/16 07:00 Resp 16 05/28/16 07:00 BP 99/67 05/28/16 07:00 Pulse Ox 96 05/28/16 07:00 Intake & Output 05/27/16 05/28/16 05/28/16 18:59 06:59 18:59 Intake Total 200 Output Total 1300 Balance -1300 200 Intake: Oral 200 Output: Gastric Drainage 50 Urine 1250 Other: Voiding Method Urinal Toilet Toilet Urinal Urinal # Voids 1 1 - Exam GENERAL: Pt awake and alert, well-appearing, well-nourished, and in no acute distress. ABDOMEN: Soft, obese, nontender, nondistended, normoactive bowel sounds. No guarding, no rebound. No masses or organomegaly appreciated. NEUROLOGICAL: Pt oriented x 3. - Labs CBC & Chem 7: 05/28/16 09:10 05/28/16 09:10 Labs: Abnormal Lab Results - Last 24 Hours (Table) 05/28/16 Range/Units 09:10 Glucose 122 H (74-99) mg/dL Assessment and Plan Plan: Impression: 1. Abdominal pain suspect from partial small bowel obstruction, improved. Plan: 1. Advance diet to full liquids. Increase activity. Continue supportive care and pain management. The above impression and plan have been discussed and directed by Dr. Fu. Andre ROMEO acting as scribe for Dr. Fu.
--- NOTE | 2016-05-28 11:53 | P.PN ---
Subjective Patient is doing a lot better today. Abdomen is soft. Pain has improved significantly. Able to tolerate liquid with no difficulty. Passing gas Objective - Vital Signs Vital signs: Vital Signs Temp 98.3 F 05/28/16 07:00 Pulse 79 05/28/16 07:00 Resp 16 05/28/16 07:00 BP 99/67 05/28/16 07:00 Pulse Ox 96 05/28/16 07:00 Intake & Output 05/27/16 05/28/16 05/28/16 18:59 06:59 18:59 Intake Total 200 Output Total 1300 Balance -1300 200 Intake: Oral 200 Output: Gastric Drainage 50 Urine 1250 Other: Voiding Method Urinal Toilet Toilet Urinal Urinal # Voids 1 1 - Exam General: The patient is awake and alert, in no distress Eye: there is normal conjunctiva bilaterally. Neck: The neck is supple, there is no JVD. Cardiovascular: Normal S1-S2, no S3-S4, no murmurs. Respiratory: Lungs clear to auscultation bilaterally Gastrointestinal: Abdomen is soft, nontender Musculoskeletal: There is no pedal edema. Neurological:. Speech is normal. Skin: Skin is warm and dry - Labs CBC & Chem 7: 05/28/16 09:10 05/28/16 09:10 Labs: Abnormal Lab Results - Last 24 Hours (Table) 05/28/16 Range/Units 09:10 Glucose 122 H (74-99) mg/dL Assessment and Plan Plan: 1. Abdominal pain possibly due to ileus versus small bowel obstruction. Improving gradually with conservative management. Computed tomography scan of the abdomen findings concerning for SBO. Surgery following closely. Continue IV fluids, antiemetic, and pain control as needed 2. History of left lower extremity DVT and had completed anticoagulation treatment several years ago. Patient was recently discontinued from his daily aspirin by his PCP. 3. History of BPH continue Flomax 4. History of GERD continue Protonix 5. History of previous bowel obstructions requiring bowel resection as well as lysis of adhesions
[2016-05-28] MEDS: TAMSULOSIN 0.4 MG CAP.ER.24H PO SCH (20:03)
[2016-05-29] MEDS: HYDROmorphone 1 MG/ML 1 ML SYRINGE IV PRN ×8 (02:04→22:59)
[2016-05-29] MEDS: ACETAMINOPHEN TAB 325 MG TAB PO PRN ×3 (02:08→20:11)
[2016-05-29] MEDS: SODIUM CHLORIDE 0.9% 1,000 ML IV SCH (03:25)
[2016-05-29] MEDS: ASCORBIC ACID 500 MG TAB PO SCH ×2 (07:55→20:13)
[2016-05-29] MEDS: CALCIUM CARB-VIT D 500MG-200UN 1 EACH TAB PO SCH ×3 (07:56→20:14)
[2016-05-29] MEDS: HEPARIN SODIUM,PORCINE 5,000 UNIT/ML 1 ML VIAL SQ SCH ×2 (07:56→20:14)
[2016-05-29] MEDS: FOLIC ACID 1 MG TAB PO SCH (07:56)
[2016-05-29] MEDS: MULTIVITAMINS, THERA 1 EACH TAB PO SCH ×2 (07:56→20:13)
[2016-05-29 08:51] LABS: Basophils % (A) 1 %; CH 31.7; CHCM 34.6; Eosinophils # (A) 0.3 k/uL (0-0.7); Eosinophils % (A) 7 %; HCT 41.5 % (39.0-53.0); HDW 2.87; HGB 13.7 gm/dL (13.0-17.5); Luc # (Auto) 0.14; Luc % (Auto) 3; Lymphocytes # (A) 1.4 k/uL (1.0-4.8); Lymphocytes % (A) 31 %; MCH 30.5 pg (25.0-35.0); MCHC 33.1 g/dL (31.0-37.0); MCV 92.1 fL (80.0-100.0); Monocytes # (A) 0.5 k/uL (0-1.0); Monocytes % (A) 10 %; Neutrophils # (A) 2.2 k/uL (1.3-7.7); Neutrophils % (A) 48 %; RBC 4.51 m/uL (4.30-5.90); RDW 13.3 % (11.5-15.5); WBC 4.6 k/uL (3.8-10.6); WBC (Perox) 4.89
[2016-05-29 09:10] LABS: ALT 44 U/L (21-72); AST 29 U/L (17-59); Alkaline Phosphatase 72 U/L (38-126); Anion Gap 12 mmol/L; Blood Urea Nitrogen 7 mg/dL (9-20); Calcium 9.4 mg/dL (8.4-10.2); Carbon Dioxide 29 mmol/L (22-30); Chloride 103 mmol/L (98-107); Glucose 124 mg/dL (74-99); Non-African American GFR(MDRD) >60 (>60 ml/min/1.73 sqM); Potassium 4.5 mmol/L (3.5-5.1); Sodium 144 mmol/L (137-145); Total Bilirubin 0.5 mg/dL (0.2-1.3); Total Protein 6.7 g/dL (6.3-8.2)
--- NOTE | 2016-05-29 11:23 | P.PN ---
Subjective Principal diagnosis: Small bowel obstruction Patient is feeling better. Patient reports abdominal pain has resolved. Denies nausea or vomiting. Passing flatus with bowel movement. Urinating without difficulties. Tolerating full liquid diet. Afebrile. Hemodynamically stable. WBC 4.6. Hemoglobin 13.7. Objective - Vital Signs Vital signs: Vital Signs Temp 97.6 F 05/29/16 07:00 Pulse 74 05/29/16 07:00 Resp 20 05/29/16 07:00 BP 108/67 05/29/16 07:00 Pulse Ox 95 05/29/16 07:00 Intake & Output 05/28/16 05/29/16 05/29/16 18:59 06:59 18:59 Intake Total 1250 600 Output Total 400 Balance 850 600 Intake: Oral 1250 600 Output: Urine 400 Other: Voiding Method Toilet Urinal # Voids 1 1 - Exam GENERAL: Pt awake and alert, well-appearing, well-nourished, and in no acute distress. ABDOMEN: Soft, obese, nontender, nondistended, normoactive bowel sounds. No guarding, no rebound. No masses or organomegaly appreciated. NEUROLOGICAL: Pt oriented x 3. - Labs CBC & Chem 7: 05/29/16 07:46 05/29/16 07:46 Labs: Abnormal Lab Results - Last 24 Hours (Table) 05/29/16 Range/Units 07:46 BUN 7 L (9-20) mg/dL Glucose 124 H (74-99) mg/dL Assessment and Plan Plan: Impression: 1. Abdominal pain suspect from partial small bowel obstruction, resolved. Plan: 1. Advance diet to soft. Increase activity. Continue supportive care and pain management. From a surgical standpoint, patient is cleared for discharge to home. Patient to continue soft diet. Follow-up with Dr. Fu in one week. The above impression and plan have been discussed and directed by Dr. Fu. Andre ROMEO acting as scribe for Dr. Fu.
--- NOTE | 2016-05-29 11:54 | P.PN ---
Subjective Patient is doing a lot better today. Abdomen is soft. Pain has improved significantly. He had multiple bowel movements since last night Objective - Vital Signs Vital signs: Vital Signs Temp 97.6 F 05/29/16 07:00 Pulse 74 05/29/16 07:00 Resp 20 05/29/16 07:00 BP 108/67 05/29/16 07:00 Pulse Ox 95 05/29/16 07:00 Intake & Output 05/28/16 05/29/16 05/29/16 18:59 06:59 18:59 Intake Total 1250 600 Output Total 400 Balance 850 600 Intake: Oral 1250 600 Output: Urine 400 Other: Voiding Method Toilet Urinal # Voids 1 1 - Exam General: The patient is awake and alert, in no distress Eye: there is normal conjunctiva bilaterally. Neck: The neck is supple, there is no JVD. Cardiovascular: Normal S1-S2, no S3-S4, no murmurs. Respiratory: Lungs clear to auscultation bilaterally Gastrointestinal: Abdomen is soft, nontender Musculoskeletal: There is no pedal edema. Neurological:. Speech is normal. Skin: Skin is warm and dry - Labs CBC & Chem 7: 05/29/16 07:46 05/29/16 07:46 Labs: Abnormal Lab Results - Last 24 Hours (Table) 05/29/16 Range/Units 07:46 BUN 7 L (9-20) mg/dL Glucose 124 H (74-99) mg/dL Assessment and Plan Plan: 1. Abdominal pain possibly due to ileus versus small bowel obstruction. Improved significantly with conservative management. Computed tomography scan of the abdomen findings concerning for SBO. Surgery following closely. Continue antiemetic, and pain control as needed 2. History of left lower extremity DVT and had completed anticoagulation treatment several years ago. Patient was recently discontinued from his daily aspirin by his PCP. 3. History of BPH continue Flomax 4. History of GERD continue Protonix 5. History of previous bowel obstructions requiring bowel resection as well as lysis of adhesions Plan for today: Advance diet to regular. Encouraged ambulation in the hallway. Plan to discharge home tomorrow.
[2016-05-29] MEDS: TAMSULOSIN 0.4 MG CAP.ER.24H PO SCH (20:14)
[2016-05-30] MEDS: HYDROmorphone 1 MG/ML 1 ML SYRINGE IV PRN ×4 (02:02→11:04)
[2016-05-30] MEDS: ACETAMINOPHEN TAB 325 MG TAB PO PRN (02:04)
[2016-05-30 07:53] VITALS: BP 121/68; PULSE 73; RESP 20; TEMP 97.2
[2016-05-30] MEDS: CALCIUM CARB-VIT D 500MG-200UN 1 EACH TAB PO SCH (07:59)
[2016-05-30] MEDS: HEPARIN SODIUM,PORCINE 5,000 UNIT/ML 1 ML VIAL SQ SCH (07:59)
[2016-05-30] MEDS: ASCORBIC ACID 500 MG TAB PO SCH (07:59)
[2016-05-30] MEDS: MULTIVITAMINS, THERA 1 EACH TAB PO SCH (07:59)
[2016-05-30] MEDS: FOLIC ACID 1 MG TAB PO SCH (07:59)
[2016-05-30 08:44] LABS: Basophils % (A) 1 %; CH 31.8; Eosinophils # (A) 0.4 k/uL (0-0.7); Eosinophils % (A) 7 %; HCT 40.2 % (39.0-53.0); HDW 2.85; HGB 13.5 gm/dL (13.0-17.5); Luc # (Auto) 0.18; Luc % (Auto) 3; Lymphocytes # (A) 1.6 k/uL (1.0-4.8); Lymphocytes % (A) 30 %; MCH 30.8 pg (25.0-35.0); MCHC 33.7 g/dL (31.0-37.0); MCV 91.5 fL (80.0-100.0); Monocytes # (A) 0.5 k/uL (0-1.0); Monocytes % (A) 9 %; Neutrophils # (A) 2.7 k/uL (1.3-7.7); Neutrophils % (A) 50 %; RDW 13.3 % (11.5-15.5); WBC 5.3 k/uL (3.8-10.6); WBC (Perox) 5.87
[2016-05-30 09:05] LABS: ALT 48 U/L (21-72); AST 27 U/L (17-59); Alkaline Phosphatase 76 U/L (38-126); Anion Gap 12 mmol/L; Blood Urea Nitrogen 11 mg/dL (9-20); Calcium 9.3 mg/dL (8.4-10.2); Carbon Dioxide 27 mmol/L (22-30); Chloride 103 mmol/L (98-107); Glucose 103 mg/dL (74-99); Non-African American GFR(MDRD) >60 (>60 ml/min/1.73 sqM); Potassium 4.1 mmol/L (3.5-5.1); Sodium 142 mmol/L (137-145); Total Bilirubin 0.3 mg/dL (0.2-1.3); Total Protein 6.5 g/dL (6.3-8.2)
--- NOTE | 2016-05-30 11:30 | P.DS ---
Providers Date of admission: 05/26/16 17:29 Expected date of discharge: 05/30/16 Attending physician: Pastor Farris Consults: 05/26/16 18:06 Consult Physician Stat Consulting Provider: Dilan Fu Consult Reason/Comments: SBO Do you want consulting provider notified?: Yes Primary care physician: Lurdes Swanson Hospital Course: Discharge diagnosis 1. Abdominal pain possibly due to partial small bowel obstruction. Improved significantly with conservative management. Computed tomography scan of the abdomen findings concerning for SBO. Surgery following closely. Continue antiemetic, and pain control as needed 2. History of left lower extremity DVT and had completed anticoagulation treatment several years ago. Patient was recently discontinued from his daily aspirin by his PCP. 3. History of BPH continue Flomax 4. History of GERD continue Protonix 5. History of previous bowel obstructions requiring bowel resection as well as lysis of adhesions Hospital course This is a 61-year-old male who presented with abdominal pain. He had some sharp abdominal pains. Small bowel movement the day before he came in. Denies any nausea or vomiting. Computed tomography scan of the abdomen was completed showed ileus, enteritis and difficult to exclude a partial small bowel obstruction. There were small bowel dilation. Patient was seen evaluated by surgical service. He did have a NG tube placed. He did start to pass gas and have bowel movements. NG tube removed and tolerated advancement of diet. Patient's symptoms have improved and he is stable for discharge. He was treated conservatively for partial small bowel obstruction. Surgical follow-up with him in the office in one week. Please refer to chart for any further details. Also note the patient was given a prescription of Dumont 5 every 4 hours dispensing 15 pills. Patient Condition at Discharge: Stable Plan - Discharge Summary New Discharge Prescriptions: HYDROcodone/APAP 5-325MG [Dumont 5-325] 1 tab PO Q4HR PRN #15 tab PRN Reason: Pain Discharge Medication List Ascorbic Acid [Vitamin C] 1,000 mg PO BID 04/04/15 [History] Calcium Carbonate/Vitamin D3 [Calcium 600-Vit D3 400 Tablet] 2 tab PO TID [History] Multivitamins, Thera [Multivitamin] 2 tab PO BID 04/04/15 [History] Selenium 200 mcg PO DAILY 04/04/15 [History] Tamsulosin HCl 0.4 mg PO HS 04/20/15 [History] Docusate [Colace] 100 mg PO DAILY PRN 07/05/15 [History] Omeprazole [PriLOSEC] 20 mg PO AC-BRKFST 07/05/15 [History] Fiber Bar 1 pack PO DAILY 05/26/16 [History] Fish Oil/Dha/Epa [Fish Oil 1,200 mg Fish Oil] 1 cap PO DAILY 05/26/16 [History] Folic Acid 0.8 mg PO DAILY 05/26/16 [History] Hyoscyamine Sulfate [Hyoscyamine Sulfate SL] 0.125 mg SL DAILY PRN 05/26/16 [ History] HYDROcodone/APAP 5-325MG [Dumont 5-325] 1 tab PO Q4HR PRN #15 tab 05/30/16 [Rx] Follow up Appointment(s)/Referral(s): Dilan Fu MD [STAFF PHYSICIAN] - 1 Week Lurdes Swanson MD [Primary Care Provider] - 1 Week Patient Instructions/Handouts: Bowel Obstruction (DC) Activity/Diet/Wound Care/Special Instructions: Soft diet Discharge Disposition: HOME SELF-CARE
--- NOTE | 2016-05-30 13:08 | P.PN ---
Subjective Principal diagnosis: Small bowel obstruction Patient is feeling better. Patient reports abdominal pain has resolved. Denies nausea or vomiting. Passing flatus with bowel movement. Urinating without difficulties. Tolerating soft diet. Afebrile. Hemodynamically stable. WBC 5.3. Hemoglobin 13.5. Objective - Vital Signs Vital signs: Vital Signs Temp 97.2 F L 05/30/16 07:00 Pulse 73 05/30/16 07:00 Resp 20 05/30/16 07:00 BP 121/68 05/30/16 07:00 Pulse Ox 94 L 05/30/16 07:00 Intake & Output 05/29/16 05/30/16 05/30/16 18:59 06:59 18:59 Intake Total 2460 240 Balance 2460 240 Intake: Intake, IV Titration 250 Amount Sodium Chloride 0.9% 1, 250 000 ml @ 50 mls/hr IV . Q20H ERWIN Rx#:[id number] Oral 2210 240 Other: # Voids 3 3 # Bowel Movements 2 - Exam GENERAL: Pt awake and alert, well-appearing, well-nourished, and in no acute distress. ABDOMEN: Soft, obese, nontender, nondistended, normoactive bowel sounds. No guarding, no rebound. No masses or organomegaly appreciated. NEUROLOGICAL: Pt oriented x 3. - Labs CBC & Chem 7: 05/30/16 07:43 05/30/16 07:43 Labs: Abnormal Lab Results - Last 24 Hours (Table) 05/30/16 Range/Units 07:43 Glucose 103 H (74-99) mg/dL Assessment and Plan Plan: Impression: 1. Abdominal pain suspect from partial small bowel obstruction, resolved. Plan: 1. Continue soft diet. Increase activity. Continue supportive care and pain management. From a surgical standpoint, patient is cleared for discharge to home. Patient to continue soft diet. Follow-up with Dr. Fu in one week. The above impression and plan have been discussed and directed by Dr. Fu. Andre ROMEO acting as scribe for Dr. Fu.
== END 2016-05-30 13:05 | disposition home or self-care (01) | DRG 390 ==
LOC: EC 13:38 → 4MS4W 17:29
PROVIDERS: ADMIT Internal Medicine; ATTEND Internal Medicine
DX: K56.60 Unspecified intestinal obstruction (principal); E78.5 Hyperlipidemia, unspecified; G89.29 Other chronic pain; K21.9 Gastro-esophageal reflux disease without esophagitis; N40.0 Benign prostatic hyperplasia without lower urinary tract symptoms; M54.9 Dorsalgia, unspecified; F12.90 Cannabis use, unspecified, uncomplicated; E66.9 Obesity, unspecified; Z68.33 Body mass index [BMI] 33.0-33.9, adult; Z85.828 Personal history of other malignant neoplasm of skin; Z79.899 Other long term (current) drug therapy; Z88.0 Allergy status to penicillin
CPT/HCPCS: 36415; 43753; 74020; 74177; 80053; 81003; 82150; 83605; 83690; 85025; 87040; 87086; 96361; 96374; 99285

== ENCOUNTER 2016-05-31 21:17 | Emergency (ER) | payer OTHER ==
[2016-05-31] MEDS ORDERED: HYDROmorphone 1 MG/ML 1 ML SYRINGE IVP STA ×2 (22:04→23:12)
[2016-05-31] MEDS ORDERED: SODIUM CHLORIDE 0.9% 1,000 ML IV STA ×2 (22:04)
--- NOTE | 2016-05-31 22:06 | ED ---
General Adult HPI - General Chief complaint: Abdominal Pain Stated complaint: Left side pain Time Seen by Provider: 05/31/16 21:56 Source: patient, RN notes reviewed Mode of arrival: ambulatory Limitations: no limitations - History of Present Illness Initial comments: Patient 61-year-old male who presents emergency room today with chief complaint of left-sided abdominal pain that began earlier this morning waking up around 5 AM. He states that through the day it seems to be found worse. He describes it as "sharp" type pain. Currently rates as 11/11. Denies any radiation. Doesn 't that he was recently admitted and released from the hospital for a bowel obstruction. States he went home yesterday. States feels different to him. States does not feel like obstruction that is had in the past. He states he did have bowel movements earlier in the day. States is passing flatulence. He denies any other complaints or symptoms. Patient denies any recent fever, chills , shortness of breath, chest pain, back pain, nausea or vomiting, numbness or tingling, dysuria or hematuria, constipation or diarrhea, headaches or visual changes, or any other complaints. - Related Data Home Medications Medication Instructions Recorded Confirmed Ascorbic Acid [Vitamin C] 1,000 mg PO BID 04/04/15 05/26/16 Calcium Carbonate/Vitamin D3 2 tab PO TID 04/04/15 05/26/16 [Calcium 600-Vit D3 400 Tablet] Multivitamins, Thera [Multivitamin] 2 tab PO BID 04/04/15 05/26/16 Selenium 200 mcg PO DAILY 04/04/15 05/26/16 Tamsulosin HCl 0.4 mg PO HS 04/20/15 05/26/16 Docusate [Colace] 100 mg PO DAILY PRN 07/05/15 05/26/16 Omeprazole [PriLOSEC] 20 mg PO AC-BRKFST 07/05/15 05/26/16 Fiber Bar 1 pack PO DAILY 05/26/16 05/26/16 Fish Oil/Dha/Epa [Fish Oil 1,200 1 cap PO DAILY 05/26/16 05/26/16 mg Fish Oil] Folic Acid 0.8 mg PO DAILY 05/26/16 05/26/16 Hyoscyamine Sulfate [Hyoscyamine 0.125 mg SL DAILY PRN 05/26/16 05/26/16 Sulfate SL] Previous Rx's Medication Instructions Recorded HYDROcodone/APAP 5-325MG [Arma 1 tab PO Q4HR PRN #15 tab 05/30/16 5-325] Allergies Allergy/AdvReac Type Severity Reaction Status Date / Time Penicillins Allergy Rash/Hives, Verified 05/31/16 21:23 WHEEZING Review of Systems ROS Statement: Those systems with pertinent positive or pertinent negative responses have been documented in the HPI. ROS Other: All systems not noted in ROS Statement are negative. Past Medical History Past Medical History: Cancer, Deep Vein Thrombosis (DVT), GERD/Reflux, Hyperlipidemia, Pneumonia Additional Past Medical History / Comment(s): 04-20-16 admitted with abd pain, small bowel obstruction. other past medical hx includes: BASAL CELL SKIN CA, DVT LEFT LOWER LEG, BLOOD CLOT RIGHT EYE, bronchitis , SMALL bowel obstruction , C-DIFF 2009, PNE W/SIRS,BRONCHITIS,SINUSITIS History of Any Multi-Drug Resistant Organisms: None Reported Date of last positivie culture/infection: None MDRO Source:: None Past Surgical History: Adenoidectomy, Bowel Resection, Cholecystectomy, Hernia Repair, Tonsillectomy Additional Past Surgical History / Comment(s): colonoscopy/polypectomy(BENIGN), EGD,TONSILLECTOMY AND ADENOIDECTOMY X2 (AGE 1 AND AGE 12),EXPLORATORY LAP W/ LYSIS OF ADHSEIONS,DECOMPRESSION OF SMALL BOWEL, yamileth fundloplication Past Anesthesia/Blood Transfusion Reactions: No Reported Reaction Past Psychological History: No Psychological Hx Reported Additional Psychological History / Comment(s): PT LIVES WITH HIS GILBERTO, 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 Smoking Status: Never smoker Past Alcohol Use History: None Reported Additional Past Alcohol Use History / Comment(s): Patient is a lifelong nonsmoker. He does have medical marijuana but states he hasn't smoked marijuana in a very long time (over a year). He denies any street drug use. He denies any alcohol use. He is currently living at home with his . 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 [place] and is unknown if he has asbestos EXPOSURE. . No recent travel. Past Drug Use History: None Reported, Marijuana Additional Drug Use History / Comment(s): -MEDICAL CARD - Past Family History Mother Family Medical History: Cancer Additional Family Medical History / Comment(s): Emphysema, heart problems, COLON CANCER Father Additional Family Medical History / Comment(s): COLON CA LIVER CA,MULTIPLE MYELOMA General Exam - General Exam Comments Initial Comments: General: The patient is awake and alert, in no distress, and does not appear acutely ill. Eye: Pupils are equal, round and reactive to light, extra-ocular movements are intact. No nystagmus. There is normal conjunctiva bilaterally. No signs of icterus. Ears, nose, mouth and throat: There are moist mucous membranes and no oral lesions. Neck: The neck is supple, there is no tenderness or JVD. Cardiovascular: There is a regular rate and rhythm. No murmur, rub or gallop is appreciated. Respiratory: Lungs are clear to auscultation, respirations are non-labored, breath sounds are equal. No wheezes, stridor, rales, or rhonchi. Gastrointestinal: Soft, non-distended, non-tender abdomen without masses or organomegaly noted. There is no rebound or guarding present. No CVA tenderness. Bowel sounds are unremarkable. Musculoskeletal: Normal ROM, no tenderness. Strength 5/5. Sensation intact. Pulses equal bilaterally 2+. Neurological: A&O x 3. CN II-XII intact, There are no obvious motor or sensory deficits. Coordination appears grossly intact. Speech is normal. Skin: Skin is warm and dry and no rashes or lesions are noted. Psychiatric: Cooperative, appropriate mood & affect, normal judgment. Limitations: no limitations Course Vital Signs 05/31/16 05/31/16 05/31/16 21:20 22:46 23:28 Temperature 98.6 F 98.0 F 97.8 F Pulse Rate 85 73 73 Respiratory 18 16 18 Rate Blood Pressure 127/77 118/71 127/77 O2 Sat by Pulse 94 L 99 99 Oximetry Medical Decision Making - Medical Decision Making Patient reexamined at this time shows no signs of distress. Patient's discussed with attending physician Dr. Yan. Patient had recent CT just 4 days ago which shows that possible ileus time no other acute abnormalities appreciated. Patient labs today are unremarkable. Patient's x-ray does show improvement from previous no sign of an obstruction. Still has some stool remaining. It was discussed with patient possibility of constipation being part of the problem. Patient given pain medication here in the emergency room feeling better. Was discussed about trying magnesium citrate to see if it helps relieve his symptoms. He states he would like to do this at home. Will be discharged home with magnesium citrate. Advised to return here to the emergency room if symptoms increase worsen or for any other concerns. Advised to follow-up with his family doctor in surgeon as previously discussed. Patient and family member at bedside state understanding and agreement. - Lab Data Result diagrams: 05/31/16 22:45 05/31/16 22:45 Lab Results 05/31/16 05/31/16 05/31/16 Range/Units 22:45 22:45 22:45 WBC 8.1 (3.8-10.6) k/uL RBC 4.77 (4.30-5.90) m/uL Hgb 14.9 (13.0-17.5) gm/dL Hct 43.4 (39.0-53.0) % MCV 91.0 (80.0-100.0) fL MCH 31.3 (25.0-35.0) pg MCHC 34.3 (31.0-37.0) g/dL RDW 13.2 (11.5-15.5) % Plt Count 239 (150-450) k/uL Neutrophils % 60 % Lymphocytes % 24 % Monocytes % 7 % Eosinophils % 5 % Basophils % 0 % Neutrophils # 4.8 (1.3-7.7) k/uL Lymphocytes # 1.9 (1.0-4.8) k/uL Monocytes # 0.6 (0-1.0) k/uL Eosinophils # 0.4 (0-0.7) k/uL Basophils # 0.0 (0-0.2) k/uL PT (9.0-12.0) sec INR (<1.1) APTT (22.0-30.0) sec Sodium 141 (137-145) mmol/L Potassium 4.2 (3.5-5.1) mmol/L Chloride 105 (98-107) mmol/L Carbon Dioxide 24 (22-30) mmol/L Anion Gap 12 mmol/L BUN 18 (9-20) mg/dL Creatinine 0.80 (0.66-1.25) mg/dL Est GFR (MDRD) Af Amer >60 (>60 ml/min/1.73 sqM) Est GFR (MDRD) Non-Af >60 (>60 ml/min/1.73 sqM) Glucose 108 H (74-99) mg/dL Plasma Lactic Acid [place] 1.0 (0.7-2.0) mmol/L Calcium 9.6 (8.4-10.2) mg/dL Total Bilirubin 0.5 (0.2-1.3) mg/dL AST 25 (17-59) U/L ALT 46 (21-72) U/L Alkaline Phosphatase 77 (38-126) U/L Total Protein 7.0 (6.3-8.2) g/dL Albumin 4.1 (3.5-5.0) g/dL Amylase <30 L (30-110) U/L Lipase 15 L (23-300) U/L Urine Color Urine Appearance (Clear) Urine pH (5.0-8.0) Ur Specific [place] (1.001-1.035) Urine Protein (Negative) Urine Glucose (UA) (Negative) Urine Ketones (Negative) Urine Blood (Negative) Urine Nitrate (Negative) Urine Bilirubin (Negative) Urine Urobilinogen (<2.0) mg/dL Ur Leukocyte Esterase (Negative) 05/31/16 05/31/16 Range/Units 22:45 23:35 WBC (3.8-10.6) k/uL RBC (4.30-5.90) m/uL Hgb (13.0-17.5) gm/dL Hct (39.0-53.0) % MCV (80.0-100.0) fL MCH (25.0-35.0) pg MCHC (31.0-37.0) g/dL RDW (11.5-15.5) % Plt Count (150-450) k/uL Neutrophils % % Lymphocytes % % Monocytes % % Eosinophils % % Basophils % % Neutrophils # (1.3-7.7) k/uL Lymphocytes # (1.0-4.8) k/uL Monocytes # (0-1.0) k/uL Eosinophils # (0-0.7) k/uL Basophils # (0-0.2) k/uL PT 10.3 (9.0-12.0) sec INR 1.0 (<1.1) APTT 24.6 (22.0-30.0) sec Sodium (137-145) mmol/L Potassium (3.5-5.1) mmol/L Chloride (98-107) mmol/L Carbon Dioxide (22-30) mmol/L Anion Gap mmol/L BUN (9-20) mg/dL Creatinine (0.66-1.25) mg/dL Est GFR (MDRD) Af Amer (>60 ml/min/1.73 sqM) Est GFR (MDRD) Non-Af (>60 ml/min/1.73 sqM) Glucose (74-99) mg/dL Plasma Lactic Acid [place] (0.7-2.0) mmol/L Calcium (8.4-10.2) mg/dL Total Bilirubin (0.2-1.3) mg/dL AST (17-59) U/L ALT (21-72) U/L Alkaline Phosphatase (38-126) U/L Total Protein (6.3-8.2) g/dL Albumin (3.5-5.0) g/dL Amylase (30-110) U/L Lipase (23-300) U/L Urine Color Yellow Urine Appearance Clear (Clear) Urine pH 5.5 (5.0-8.0) Ur Specific [place] 1.022 (1.001-1.035) Urine Protein Negative (Negative) Urine Glucose (UA) Negative (Negative) Urine Ketones Negative (Negative) Urine Blood Negative (Negative) Urine Nitrate Negative (Negative) Urine Bilirubin Negative (Negative) Urine Urobilinogen <2.0 (<2.0) mg/dL Ur Leukocyte Esterase Negative (Negative) Disposition Clinical Impression: Abdominal pain Disposition: HOME SELF-CARE Condition: Good Instructions: Abdominal Pain (ED) Additional Instructions: Please use medication as discussed. Please follow-up with family doctor/ surgeon in the next 2 days of symptoms have not improved. Please return to emergency room if the symptoms increase or worsen or for any other concerns. Time of Disposition: 00:18
[2016-05-31] MEDS: ONDANSETRON 4 MG/2 ML VIAL IVP STA ×2 (22:48→23:24)
[2016-05-31 22:59] LABS: Basophils % (A) 0 %; CH 31.9; CHCM 35.2; Eosinophils # (A) 0.4 k/uL (0-0.7); Eosinophils % (A) 5 %; HCT 43.4 % (39.0-53.0); HGB 14.9 gm/dL (13.0-17.5); Luc # (Auto) 0.31; Luc % (Auto) 4; Lymphocytes # (A) 1.9 k/uL (1.0-4.8); Lymphocytes % (A) 24 %; MCH 31.3 pg (25.0-35.0); MCHC 34.3 g/dL (31.0-37.0); Mean Platelet Volume 6.7; Monocytes # (A) 0.6 k/uL (0-1.0); Monocytes % (A) 7 %; Neutrophils # (A) 4.8 k/uL (1.3-7.7); Neutrophils % (A) 60 %; RBC 4.77 m/uL (4.30-5.90); RDW 13.2 % (11.5-15.5); WBC 8.1 k/uL (3.8-10.6); WBC (Perox) 8.27
[2016-05-31 23:07] LABS: ALT 46 U/L (21-72); AST 25 U/L (17-59); Alkaline Phosphatase 77 U/L (38-126); Amylase <30 U/L (30-110); Anion Gap 12 mmol/L; Blood Urea Nitrogen 18 mg/dL (9-20); Calcium 9.6 mg/dL (8.4-10.2); Carbon Dioxide 24 mmol/L (22-30); Chloride 105 mmol/L (98-107); Glucose 108 mg/dL (74-99); Non-African American GFR(MDRD) >60 (>60 ml/min/1.73 sqM); Partial Thromboplastin Time 24.6 sec (22.0-30.0); Potassium 4.2 mmol/L (3.5-5.1); Prothrombin Time 10.3 sec (9.0-12.0); Sodium 141 mmol/L (137-145); Total Bilirubin 0.5 mg/dL (0.2-1.3)
--- NOTE | 2016-05-31 23:10 | XR ---
EXAMINATION TYPE: XR KUB DATE OF EXAM: 05/31/2016 10:58 PM COMPARISON: 05/27/2016 HISTORY: Left flank pain TECHNIQUE: 2 views FINDINGS: Bowel gas pattern is normal. There is no sign of intestinal obstruction or pneumoperitoneum . Fecal pattern is normal. There are no pathologic calcifications over the kidneys. Lung bases are cl ear. IMPRESSION: Nonacute abdomen. No change.
[2016-05-31 23:39] LABS: Appearance,Urine Clear (Clear); Bilirubin,Urine Negative (Negative); Glucose,Urine (UA) Negative (Negative); Ketones,Urine Negative (Negative); Leukocyte Esterase,Urine Negative (Negative); Nitrite,Urine Negative (Negative); PH, Urine 5.5 (5.0-8.0); Protein,Urine Negative (Negative); Specific Gravity,Urine 1.022 (1.001-1.035); UA Billing (MACRO vs. MICRO) CHEM; Urobilinogen,Urine <2.0 mg/dL (<2.0)
[2016-06-01] MEDS ORDERED: MAGNESIUM CITRATE 296 ML BOTTLE PO ONE (00:19)
[2016-06-01 00:33] VITALS: BP 121/79; PULSE 66; RESP 16; TEMP 97.9
== END 2016-06-01 00:39 | disposition home or self-care (01) ==
LOC: EC 21:17
DX: R10.9 Unspecified abdominal pain (principal); Z79.899 Other long term (current) drug therapy; Z88.0 Allergy status to penicillin; K21.9 Gastro-esophageal reflux disease without esophagitis
CPT/HCPCS: 36415; 80053; 82150; 83605; 83690; 85025; 85610; 85730; 81003; 74000; 99284; 96374; 96376; 96361; J1170

== ENCOUNTER 2016-11-20 21:28 | Inpatient (IN) | payer OTHER ==
--- NOTE | 2016-11-20 22:02 | ED ---
General Adult HPI - General Chief complaint: Abdominal Pain Stated complaint: GI Obstruction Time Seen by Provider: 11/20/16 21:35 Source: patient, family, RN notes reviewed Mode of arrival: ambulatory Limitations: no limitations - History of Present Illness Initial comments: this is a 61-year-old male who presents emergency Department complaining of abdominal distention starting last evening. Patient states she continued to pass gas to about 5:00 this afternoon at which point in time he is no longer had any bowel movements or passed any gas. Patient states he has had multiple small bowel obstructions in the past. Patient states he has had no nausea or vomiting and in the past has had no nausea or vomiting. Patient denies any fever or chills. Patient states the pain is mostly on the right side which is typical for him. Patient denies any dysuria hematuria urinary frequency. Patient denies any back pain. Patient denies any recent injury or fall. Patient denies any chest pain difficult breathing or shortness of breath. - Related Data Home Medications Medication Instructions Recorded Confirmed Ascorbic Acid [Vitamin C] 1,000 mg PO BID 04/04/15 11/20/16 Calcium Carbonate/Vitamin D3 1 tab PO BID 04/04/15 11/20/16 [Calcium 600-Vit D3 400 Tablet] Multivitamins, Thera [Multivitamin 2 tab PO BID 04/04/15 11/20/16 (formulary)] Selenium 200 mcg PO DAILY 04/04/15 11/20/16 Tamsulosin HCl 0.4 mg PO HS 04/20/15 11/20/16 Docusate [Colace] 100 mg PO DAILY PRN 07/05/15 11/20/16 Fish Oil/Dha/Epa [Fish Oil 1,200 1 cap PO DAILY 05/26/16 11/20/16 mg Fish Oil] Folic Acid 0.8 mg PO DAILY 05/26/16 11/20/16 Aspirin 325 mg PO DAILY 11/20/16 11/20/16 Simvastatin [Zocor] 20 mg PO HS 11/20/16 11/20/16 Allergies Allergy/AdvReac Type Severity Reaction Status Date / Time Penicillins Allergy Rash/Hives, Verified 11/20/16 22:13 WHEEZING Review of Systems ROS Statement: Those systems with pertinent positive or pertinent negative responses have been documented in the HPI. ROS Other: All systems not noted in ROS Statement are negative. Past Medical History Past Medical History: Cancer, Deep Vein Thrombosis (DVT), GERD/Reflux, Hyperlipidemia, Pneumonia Additional Past Medical History / Comment(s): 12-17-16 admitted with abd pain, small bowel obstruction. other past medical hx includes: BASAL CELL SKIN CA, DVT LEFT LOWER LEG, BLOOD CLOT RIGHT EYE, bronchitis , SMALL bowel obstruction , C-DIFF 2010, PNE W/SIRS,BRONCHITIS,SINUSITIS History of Any Multi-Drug Resistant Organisms: None Reported Date of last positivie culture/infection: None MDRO Source:: None Past Surgical History: Adenoidectomy, Bowel Resection, Cholecystectomy, Hernia Repair, Tonsillectomy Additional Past Surgical History / Comment(s): colonoscopy/polypectomy(BENIGN), EGD,TONSILLECTOMY AND ADENOIDECTOMY X2 (AGE 1 AND AGE 12),EXPLORATORY LAP W/ LYSIS OF ADHSEIONS,DECOMPRESSION OF SMALL BOWEL, yamileth fundloplication Past Anesthesia/Blood Transfusion Reactions: No Reported Reaction Past Psychological History: No Psychological Hx Reported Smoking Status: Never smoker Past Alcohol Use History: None Reported Past Drug Use History: None Reported, Marijuana - Past Family History Mother Family Medical History: Cancer Additional Family Medical History / Comment(s): Emphysema, heart problems, COLON CANCER Father Additional Family Medical History / Comment(s): COLON CA LIVER CA,MULTIPLE MYELOMA General Exam - General Exam Comments Initial Comments: GENERAL: Patient is well-developed and well-nourished. Patient is nontoxic and well- hydrated and is in mild distress. ENT: Neck is soft and supple. No significant lymphadenopathy is noted. Oropharynx is clear. Moist mucous membranes. Neck has full range of motion without eliciting any pain. EYES: The sclera were anicteric and conjunctiva were pink and moist. Extraocular movements were intact and pupils were equal round and reactive to light. Eyelids were unremarkable. PULMONARY: Unlabored respirations. Good breath sounds bilaterally. No audible rales rhonchi or wheezing was noted. CARDIOVASCULAR: There is a regular rate and rhythm without any murmurs gallops or rubs. ABDOMEN: Patient has right-sided abdominal tenderness more in the mid abdominal region there is no rebound or guarding. Patient has decreased abdominal bowel sounds. No palpable organomegaly was noted. There is no palpable pulsatile mass. SKIN: Skin is clear with no lesions or rashes and otherwise unremarkable. NEUROLOGIC: Patient is alert and oriented x3. Cranial nerves II through XII are grossly intact. Motor and sensory are also intact. Normal speech, volume and content. Symmetrical smile. MUSCULOSKELETAL: Normal extremities with adequate strength and full range of motion. LYMPHATICS: No significant lymphadenopathy is noted PSYCHIATRIC: Normal psychiatric evaluation. Normal interpersonal interactions appears functionally intact in deals appropriately with others. No signs of depression. No signs of anxiety. Limitations: no limitations Course Vital Signs 11/20/16 21:32 Temperature 97.8 F Pulse Rate 76 Respiratory 20 Rate Blood Pressure 175/91 O2 Sat by Pulse 97 Oximetry Medical Decision Making - Lab Data Result diagrams: 11/20/16 22:15 11/20/16 22:15 Lab Results 11/20/16 11/20/16 Range/Units 22:15 22:15 WBC 10.7 H (3.8-10.6) k/uL RBC 4.86 (4.30-5.90) m/uL Hgb 15.7 (13.0-17.5) gm/dL Hct 44.5 (39.0-53.0) % MCV 91.6 (80.0-100.0) fL MCH 32.3 (25.0-35.0) pg MCHC 35.3 (31.0-37.0) g/dL RDW 14.5 (11.5-15.5) % Plt Count 245 (150-450) k/uL Neutrophils % 66 % Lymphocytes % 19 % Monocytes % 7 % Eosinophils % 4 % Basophils % 1 % Neutrophils # 7.1 (1.3-7.7) k/uL Lymphocytes # 2.0 (1.0-4.8) k/uL Monocytes # 0.7 (0-1.0) k/uL Eosinophils # 0.4 (0-0.7) k/uL Basophils # 0.1 (0-0.2) k/uL Sodium 137 (137-145) mmol/L Potassium 4.5 (3.5-5.1) mmol/L Chloride 105 (98-107) mmol/L Carbon Dioxide 22 (22-30) mmol/L Anion Gap 10 mmol/L BUN 14 (9-20) mg/dL Creatinine 0.75 (0.66-1.25) mg/dL Est GFR (MDRD) Af Amer >60 (>60 ml/min/1.73 sqM) Est GFR (MDRD) Non-Af >60 (>60 ml/min/1.73 sqM) Glucose 95 (74-99) mg/dL Calcium 9.7 (8.4-10.2) mg/dL Total Bilirubin 0.6 (0.2-1.3) mg/dL AST 44 (17-59) U/L ALT 49 (21-72) U/L Alkaline Phosphatase 70 (38-126) U/L Total Protein 6.9 (6.3-8.2) g/dL Albumin 4.3 (3.5-5.0) g/dL Amylase <30 L (30-110) U/L Lipase 13 L (23-300) U/L Disposition Clinical Impression: Small bowel obstruction Disposition: ADMITTED IP TO THIS HOSP Referrals: Lurdes wSanson MD [Primary Care Provider] - 1-2 days Time of Disposition: 23:17
[2016-11-20] MEDS ORDERED: ONDANSETRON 4 MG/2 ML VIAL IVP STA (22:20)
[2016-11-20] MEDS ORDERED: HYDROmorphone 1 MG/ML 1 ML SYRINGE IVP STA (22:20)
[2016-11-20 22:25] LABS: Basophils # (A) 0.1 k/uL (0-0.2); Basophils % (A) 1 %; CH 32.5; CHCM 35.7; Eosinophils # (A) 0.4 k/uL (0-0.7); Eosinophils % (A) 4 %; HCT 44.5 % (39.0-53.0); HDW 2.79; HGB 15.7 gm/dL (13.0-17.5); Luc # (Auto) 0.36; Luc % (Auto) 3; Lymphocytes % (A) 19 %; MCH 32.3 pg (25.0-35.0); MCHC 35.3 g/dL (31.0-37.0); MCV 91.6 fL (80.0-100.0); Mean Platelet Volume 7.3; Monocytes # (A) 0.7 k/uL (0-1.0); Monocytes % (A) 7 %; Neutrophils # (A) 7.1 k/uL (1.3-7.7); Neutrophils % (A) 66 %; RBC 4.86 m/uL (4.30-5.90); RDW 14.5 % (11.5-15.5); WBC 10.7 k/uL (3.8-10.6); WBC (Perox) 9.77
[2016-11-20 22:35] LABS: ALT 49 U/L (21-72); AST 44 U/L (17-59); Alkaline Phosphatase 70 U/L (38-126); Amylase <30 U/L (30-110); Anion Gap 10 mmol/L; Blood Urea Nitrogen 14 mg/dL (9-20); Calcium 9.7 mg/dL (8.4-10.2); Carbon Dioxide 22 mmol/L (22-30); Chloride 105 mmol/L (98-107); Glucose 95 mg/dL (74-99); Non-African American GFR(MDRD) >60 (>60 ml/min/1.73 sqM); Potassium 4.5 mmol/L (3.5-5.1); Sodium 137 mmol/L (137-145); Total Bilirubin 0.6 mg/dL (0.2-1.3); Total Protein 6.9 g/dL (6.3-8.2)
--- NOTE | 2016-11-20 22:57 | XR ---
PROCEDURE: FILM KUB HISTORY: 61-year-old male with abdominal pain. COMPARISON: Abdominal radiographs 05/31/2016 TECHNIQUE: Frontal upright views of the abdomen were obtained. FINDINGS: Lung bases are clear. Multiple dilated, air- and fluid-distended loops of bowel, likely due to obstruction. No evidence of free air under the diaphragm. Multilevel degenerative changes in the spine. IMPRESSION: 1. Multiple dilated, air- and fluid-distended loops of bowel, likely due to obstruction. 2. No evidence of free air under the diaphragm.
[2016-11-20] MEDS ORDERED: SODIUM CHLORIDE 0.9% 1,000 ML IV ONE (23:17)
[2016-11-20] MEDS ORDERED: HYDROmorphone 1 MG/ML 1 ML SYRINGE IVP PRN (23:19)
[2016-11-20] MEDS ORDERED: ONDANSETRON 4 MG/2 ML VIAL IVP PRN (23:19)
[2016-11-21] MEDS ORDERED: HYDROmorphone 1 MG/ML 1 ML SYRINGE IVP STA (00:26)
--- NOTE | 2016-11-21 08:29 | P.GSHP ---
History of Present Illness H&P Date: 11/21/16 Chief Complaint: Abdominal pain, bowel obstruction The patient's a 61-year-old man who's had multiple admissions in the past for bowel obstructions. These typically present as pain without nausea or vomiting. They will typically improve with time. No fevers or chills. No nausea or vomiting. The pain is mainly in the right abdomen. The pain medication does help. He did have a bowel movement this morning and pass flatus however it did not significantly improve the pain. - Review of Systems All systems: negative Past Medical History Past Medical History: Cancer, Deep Vein Thrombosis (DVT), GERD/Reflux, Hyperlipidemia, Pneumonia Additional Past Medical History / Comment(s): 04-20-16 admitted with abd pain, small bowel obstruction. other past medical hx includes: BASAL CELL SKIN CA, DVT LEFT LOWER LEG, BLOOD CLOT RIGHT EYE, bronchitis , SMALL bowel obstruction , C-DIFF 2009, PNE W/SIRS,BRONCHITIS,SINUSITIS History of Any Multi-Drug Resistant Organisms: C-DIFF Date of last positivie culture/infection: None MDRO Source:: None Past Surgical History: Adenoidectomy, Bowel Resection, Cholecystectomy, Hernia Repair, Tonsillectomy Additional Past Surgical History / Comment(s): colonoscopy/polypectomy(BENIGN), EGD,TONSILLECTOMY AND ADENOIDECTOMY X2 (AGE 1 AND AGE 12),EXPLORATORY LAP W/ LYSIS OF ADHSEIONS,DECOMPRESSION OF SMALL BOWEL, yamileth fundloplication. Patient states he had tear in esophagus. 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 Smoking Status: Never smoker Past Alcohol Use History: None Reported Past Drug Use History: None Reported, Marijuana Additional Drug Use History / Comment(s): Patient hasn't smoke in a while - Past Family History Mother Family Medical History: Cancer, Diabetes Mellitus Additional Family Medical History / Comment(s): Emphysema, heart problems, COLON CANCER. Father Additional Family Medical History / Comment(s): COLON CA LIVER CA,MULTIPLE MYELOMA, bone cancer Medications and Allergies Home Medications Medication Instructions Recorded Confirmed Type Ascorbic Acid [Vitamin C] 2,000 mg PO BID 04/04/15 11/21/16 History Calcium Carbonate/Vitamin D3 2 tab PO BID 04/04/15 11/21/16 History [Calcium 600-Vit D3 400 Tablet] Multivitamins, Thera [Multivitamin 2 tab PO BID 04/04/15 11/20/16 History (formulary)] Selenium 200 mcg PO DAILY 04/04/15 11/20/16 History Tamsulosin HCl 0.4 mg PO HS 04/20/15 11/20/16 History Docusate [Colace] 2 DAILY 07/05/15 05/26/16 History Fish Oil/Dha/Epa [Fish Oil 1,200 2 cap PO DAILY 05/26/16 11/21/16 History mg Fish Oil] Folic Acid 0.8 mg PO DAILY 05/26/16 11/20/16 History Aspirin 325 mg PO DAILY 11/20/16 11/20/16 History Simvastatin [Zocor] 20 mg PO HS 11/20/16 11/20/16 History Allergies Allergy/AdvReac Type Severity Reaction Status Date / Time Penicillins Allergy Rash/Hives, Verified 11/21/16 01:11 WHEEZING Surgical - Exam Osteopathic Statement: *. No significant issues noted on an osteopathic structural exam other than those noted in the History and Physical/Consult. Vital Signs Temp Pulse Resp BP Pulse Ox 97.8 F 76 20 175/91 97 11/20/16 21:32 11/20/16 21:32 11/20/16 21:32 11/20/16 21:32 11/20/16 21:32 - General well developed, well nourished, no distress - Eyes normal ocular movement - ENT normal mucosa - Neck trachea midline - Respiratory normal respiratory effort, clear to auscultation - Cardiovascular Rhythm: regular - Abdomen Abdomen: soft, tender (Mainly on the right abdomen), bowel sounds, no guarding, no rigid, no rebound, distended (Minimally tympanitic to percussion) Results - Labs 11/20/16 22:15 11/20/16 22:15 Abnormal Lab Results - Last 24 Hours (Table) 11/20/16 11/20/16 Range/Units 22:15 22:15 WBC 10.7 H (3.8-10.6) k/uL Amylase <30 L (30-110) U/L Lipase 13 L (23-300) U/L Diabetes panel 11/20/16 Range/Units 22:15 Sodium 137 (137-145) mmol/L Potassium 4.5 (3.5-5.1) mmol/L Chloride 105 (98-107) mmol/L Carbon Dioxide 22 (22-30) mmol/L BUN 14 (9-20) mg/dL Creatinine 0.75 (0.66-1.25) mg/dL Glucose 95 (74-99) mg/dL Calcium 9.7 (8.4-10.2) mg/dL AST 44 (17-59) U/L ALT 49 (21-72) U/L Alkaline Phosphatase 70 (38-126) U/L Total Protein 6.9 (6.3-8.2) g/dL Albumin 4.3 (3.5-5.0) g/dL Calcium panel 11/20/16 Range/Units 22:15 Calcium 9.7 (8.4-10.2) mg/dL Albumin 4.3 (3.5-5.0) g/dL Pituitary panel 11/20/16 Range/Units 22:15 Sodium 137 (137-145) mmol/L Potassium 4.5 (3.5-5.1) mmol/L Chloride 105 (98-107) mmol/L Carbon Dioxide 22 (22-30) mmol/L BUN 14 (9-20) mg/dL Creatinine 0.75 (0.66-1.25) mg/dL Glucose 95 (74-99) mg/dL Calcium 9.7 (8.4-10.2) mg/dL Adrenal panel 11/20/16 Range/Units 22:15 Sodium 137 (137-145) mmol/L Potassium 4.5 (3.5-5.1) mmol/L Chloride 105 (98-107) mmol/L Carbon Dioxide 22 (22-30) mmol/L BUN 14 (9-20) mg/dL Creatinine 0.75 (0.66-1.25) mg/dL Glucose 95 (74-99) mg/dL Calcium 9.7 (8.4-10.2) mg/dL Total Bilirubin 0.6 (0.2-1.3) mg/dL AST 44 (17-59) U/L ALT 49 (21-72) U/L Alkaline Phosphatase 70 (38-126) U/L Total Protein 6.9 (6.3-8.2) g/dL Albumin 4.3 (3.5-5.0) g/dL - Imaging Abdominal x-ray: report reviewed, image reviewed Assessment and Plan (1) Small bowel obstruction Status: Acute (2) Abdominal pain Status: Acute Plan: We will continue bowel rest. Adjust the frequency of the pain medications. Hydrate, serial exams, DVT and ulcer prophylaxis. This will likely resolve without surgical intervention
[2016-11-21] MEDS: HYDROmorphone 1 MG/ML 1 ML SYRINGE IVP PRN ×5 (09:35→21:43)
[2016-11-21] MEDS: ATORVASTATIN 10 MG TAB PO SCH (20:59)
[2016-11-21] MEDS: TAMSULOSIN 0.4 MG CAP.ER.24H PO SCH (20:59)
[2016-11-22] MEDS: HYDROmorphone 1 MG/ML 1 ML SYRINGE IVP PRN ×6 (00:39→22:17)
[2016-11-22 14:12] VITALS: BMI 32.5
[2016-11-22] MEDS: ACETAMINOPHEN TAB 325 MG TAB PO PRN ×2 (16:04→20:36)
[2016-11-22] MEDS: TAMSULOSIN 0.4 MG CAP.ER.24H PO SCH (19:23)
[2016-11-22] MEDS: ATORVASTATIN 10 MG TAB PO SCH (19:24)
--- NOTE | 2016-11-22 19:27 | P.PN ---
Progress Note - Text The patient states he feels better. He has less abdominal pain. He has had flatus. On exam his vital signs are stable. His evidence soft. Resolving ileus. Patient will remain on clear liquid diet. Hopefully he'll be discharged home tomorrow.
[2016-11-23] MEDS: ACETAMINOPHEN TAB 325 MG TAB PO PRN ×4 (00:29→22:21)
[2016-11-23] MEDS: HYDROmorphone 1 MG/ML 1 ML SYRINGE IVP PRN ×5 (01:18→21:27)
--- NOTE | 2016-11-23 13:18 | P.PN ---
Progress Note - Text The patient states he feels better. He is actually hungry. On exam his vital signs are stable. His abdomen soft. Resolving small bowel ileus/PSP O. Patient has a diet advanced to full liquid diet.
[2016-11-23 21:30] VITALS: PULSE 70
[2016-11-23] MEDS: TAMSULOSIN 0.4 MG CAP.ER.24H PO SCH (22:19)
[2016-11-23] MEDS: ATORVASTATIN 10 MG TAB PO SCH (22:20)
[2016-11-24] MEDS: HYDROmorphone 1 MG/ML 1 ML SYRINGE IVP PRN (00:20)
[2016-11-24 05:25] VITALS: TEMP 98.1
[2016-11-24 08:43] VITALS: BP 113/62; RESP 16
--- NOTE | 2016-11-24 10:30 | P.DS ---
Providers Date of admission: 11/20/16 23:17 Expected date of discharge: 11/24/16 Attending physician: Dilan Fu Consults: 11/22/16 10:06 Consult Physician Routine Consulting Provider: Dilan Fu Consult Reason/Comments: SBO Do you want consulting provider notified?: Already Contacted Primary care physician: Lurdes Swanson [facility] Course: This is a 61-year-old male who was admitted with a partial small bowel obstruction. Patient improved without surgical management. Please see chart for details. Patient Condition at Discharge: Good Plan - Discharge Summary New Discharge Prescriptions: No Action Multivitamins, Thera [Multivitamin (formulary)] 2 tab PO BID Calcium Carbonate/Vitamin D3 [Calcium 600-Vit D3 400 Tablet] 2 tab PO BID Ascorbic Acid [Vitamin C] 2,000 mg PO BID Selenium 200 mcg PO DAILY Tamsulosin HCl 0.4 mg PO HS Docusate [Colace] 2 DAILY Folic Acid 0.8 mg PO DAILY Fish Oil/Dha/Epa [Fish Oil 1,200 mg Fish Oil] 2 cap PO DAILY Simvastatin [Zocor] 20 mg PO HS Aspirin 325 mg PO DAILY Discharge Medication List Ascorbic Acid [Vitamin C] 2,000 mg PO BID 04/04/15 [History] Calcium Carbonate/Vitamin D3 [Calcium 600-Vit D3 400 Tablet] 2 tab PO BID [History] Multivitamins, Thera [Multivitamin (formulary)] 2 tab PO BID 04/04/15 [History] Selenium 200 mcg PO DAILY 04/04/15 [History] Tamsulosin HCl 0.4 mg PO HS 04/20/15 [History] Docusate [Colace] 2 DAILY 07/05/15 [History] Fish Oil/Dha/Epa [Fish Oil 1,200 mg Fish Oil] 2 cap PO DAILY 05/26/16 [History] Folic Acid 0.8 mg PO DAILY 05/26/16 [History] Aspirin 325 mg PO DAILY 11/20/16 [History] Simvastatin [Zocor] 20 mg PO HS 11/20/16 [History] Follow up Appointment(s)/Referral(s): Lurdes Swanson MD [Primary Care Provider] - 1-2 days Dilan Fu MD [STAFF PHYSICIAN] - 1 Week
== END 2016-11-24 13:25 | disposition home or self-care (01) | DRG 390 ==
LOC: EC 21:28 → 3SUR 23:17
PROVIDERS: ADMIT Surgery; ATTEND Surgery
DX: K56.60 Unspecified intestinal obstruction (principal); E78.5 Hyperlipidemia, unspecified; K21.9 Gastro-esophageal reflux disease without esophagitis; Z79.82 Long term (current) use of aspirin; Z79.899 Other long term (current) drug therapy; Z80.0 Family history of malignant neoplasm of digestive organs; Z80.7 Family history of other malignant neoplasms of lymphoid, hematopoietic and related tissues; Z80.8 Family history of malignant neoplasm of other organs or systems; Z82.5 Family history of asthma and other chronic lower respiratory diseases; Z83.3 Family history of diabetes mellitus; Z85.828 Personal history of other malignant neoplasm of skin; Z88.0 Allergy status to penicillin
CPT/HCPCS: 36415; 74000; 80053; 82150; 83690; 85025

== ENCOUNTER 2017-08-25 10:14 | Inpatient (IN) | payer OTHER ==
[2017-08-25] MEDS ORDERED: SODIUM CHLORIDE 0.9% 1,000 ML IV STA (10:31)
[2017-08-25] MEDS ORDERED: ONDANSETRON 4 MG/2 ML VIAL IVP STA (10:31)
[2017-08-25] MEDS ORDERED: MORPHINE SULFATE 4 MG/0.8 ML SYRINGE (INJ) IVP STA ×2 (10:31→13:42)
--- NOTE | 2017-08-25 10:33 | ED ---
General Adult HPI - General Chief complaint: Abdominal Pain Stated complaint: Abd Pain Time Seen by Provider: 08/25/17 10:21 Source: patient, RN notes reviewed, old records reviewed Mode of arrival: ambulatory Limitations: no limitations - History of Present Illness Initial comments: Patient 62-year-old male significant past history for a bowel obstruction, presented to the emergency room today with a chief complaint of abdominal pain located on the right side 2 days. Patient that the symptoms are consistent with pain that is had in the past weeks had an ileus. Patient states that he's had some diarrhea 2 days ago. States had increased pain. He states that he's had decreased flatulence today. Patient states small amount of gas this morning. Patient does admit to a sharp type pain located in the right lower quadrant. Patient states is consistent when he sat bowel obstructions in the past. Patient denies any other complaints or symptoms at this time. Patient denies any recent fever, chills, shortness of breath, chest pain, back pain, vomiting, numbness or tingling, dysuria or hematuria, headaches or visual changes, or any other complaints. - Related Data Home Medications Medication Instructions Recorded Confirmed Ascorbic Acid [Vitamin C] 1,000 mg PO HS 04/04/15 08/25/17 Calcium Carbonate/Vitamin D3 4 tab PO HS 04/04/15 08/25/17 [Calcium 600-Vit D3 400 Tablet] Multivitamins, Thera [Multivitamin 2 tab PO HS 04/04/15 08/25/17 (formulary)] Tamsulosin HCl 0.4 mg PO HS 04/20/15 08/25/17 Docusate [Colace] 100 mg PO HS 07/05/15 08/25/17 Fish Oil/Dha/Epa [Fish Oil 1,200 1 cap PO HS 05/26/16 08/25/17 mg Fish Oil] Folic Acid 0.8 mg PO HS 05/26/16 08/25/17 Aspirin 325 mg PO HS 11/20/16 08/25/17 Simvastatin [Zocor] 20 mg PO HS 11/20/16 08/25/17 Hyoscyamine Sulfate [Levsin] 0.125 mg PO HS 04/24/17 08/25/17 Omeprazole 20 mg PO HS PRN 04/24/17 08/25/17 Selenium 200 mcg PO HS 08/25/17 08/25/17 Allergies Allergy/AdvReac Type Severity Reaction Status Date / Time Penicillins Allergy Rash/Hives, Verified 08/25/17 10:45 WHEEZING Review of Systems ROS Statement: Those systems with pertinent positive or pertinent negative responses have been documented in the HPI. ROS Other: All systems not noted in ROS Statement are negative. Past Medical History Past Medical History: Cancer, Deep Vein Thrombosis (DVT), GERD/Reflux, Hyperlipidemia, Pneumonia Additional Past Medical History / Comment(s): SBOs, L lower leg DVT, blood clot behind R eye, basal skin cancer with removals, pneumonia with SIRS, sinus problems, low back pain, L foot plantar fascitis, urine flow issues at times History of Any Multi-Drug Resistant Organisms: C-DIFF Date of last positivie culture/infection: 2009 MDRO Source:: stool Past Surgical History: Adenoidectomy, Bowel Resection, Cholecystectomy, Hernia Repair, Tonsillectomy Additional Past Surgical History / Comment(s): Exploratory lap with lysis of adhesions, small bowel decompression, yamileth fundiplication, EGD, colonoscopies/ benign polypectomies, T&A twice, skin cancer removals, Past Anesthesia/Blood Transfusion Reactions: No Reported Reaction Past Psychological History: No Psychological Hx Reported Smoking Status: Never smoker - Past Family History Mother Family Medical History: Cancer, Diabetes Mellitus Additional Family Medical History / Comment(s): Emphysema, heart problems, COLON CANCER. Father Additional Family Medical History / Comment(s): COLON CA LIVER CA,MULTIPLE MYELOMA, bone cancer General Exam - General Exam Comments Initial Comments: General: The patient is awake and alert, in no distress, and does not appear acutely ill. Eye: Pupils are equal, round and reactive to light, extra-ocular movements are intact. No nystagmus. There is normal conjunctiva bilaterally. No signs of icterus. Ears, nose, mouth and throat: There are moist mucous membranes and no oral lesions. Neck: The neck is supple, there is no tenderness or JVD. Cardiovascular: There is a regular rate and rhythm. No murmur, rub or gallop is appreciated. Respiratory: Lungs are clear to auscultation, respirations are non-labored, breath sounds are equal. No wheezes, stridor, rales, or rhonchi. Gastrointestinal: Abdomen soft on palpation. Patient does have tenderness right lower quadrant. No rebound tenderness. No guarding. No CVA tenderness. Musculoskeletal: Normal ROM, no tenderness. Strength 5/5. Sensation intact. Pulses equal bilaterally 2+. Neurological: A&O x 3. CN II-XII intact, There are no obvious motor or sensory deficits. Coordination appears grossly intact. Speech is normal. Skin: Skin is warm and dry and no rashes or lesions are noted. Psychiatric: Cooperative, appropriate mood & affect, normal judgment. Limitations: no limitations Course Vital Signs 08/25/17 08/25/17 08/25/17 10:14 12:16 13:43 Temperature 96.9 F L 98 F Pulse Rate 76 66 68 Respiratory 18 17 18 Rate Blood Pressure 129/71 103/58 109/58 O2 Sat by Pulse 96 94 L 95 Oximetry Medical Decision Making - Medical Decision Making Patient's labs and CAT scan have been reviewed. Case was discussed and seen by attending physician Dr. Ricks who did discuss the case with patient's surgeon Dr. Fu recommends NG tube and admitted for small bowel obstruction. - Lab Data Result diagrams: 08/25/17 10:07 08/25/17 10:07 Lab Results 08/25/17 08/25/17 08/25/17 Range/Units 10:07 10:07 10:07 WBC 8.0 (3.8-10.6) k/uL RBC 5.11 (4.30-5.90) m/uL Hgb 15.5 (13.0-17.5) gm/dL Hct 45.6 (39.0-53.0) % MCV 89.4 (80.0-100.0) fL MCH 30.4 (25.0-35.0) pg MCHC 34.1 (31.0-37.0) g/dL RDW 13.3 (11.5-15.5) % Plt Count 238 (150-450) k/uL Neutrophils % 67 % Lymphocytes % 19 % Monocytes % 8 % Eosinophils % 4 % Basophils % 0 % Neutrophils # 5.4 (1.3-7.7) k/uL Lymphocytes # 1.5 (1.0-4.8) k/uL Monocytes # 0.6 (0-1.0) k/uL Eosinophils # 0.3 (0-0.7) k/uL Basophils # 0.0 (0-0.2) k/uL PT (9.0-12.0) sec INR (<1.2) APTT (22.0-30.0) sec Sodium 142 (137-145) mmol/L Potassium 4.2 (3.5-5.1) mmol/L Chloride 103 (98-107) mmol/L Carbon Dioxide 26 (22-30) mmol/L Anion Gap 13 mmol/L BUN 13 (9-20) mg/dL Creatinine 0.81 (0.66-1.25) mg/dL Est GFR (CKD-EPI)AfAm >90 (>60 ml/min/1.73 sqM) Est GFR (CKD-EPI)NonAf >90 (>60 ml/min/1.73 sqM) Glucose 100 H (74-99) mg/dL Plasma Lactic Acid [place] 1.0 (0.7-2.0) mmol/L Calcium 9.2 (8.4-10.2) mg/dL Total Bilirubin 0.8 (0.2-1.3) mg/dL AST 30 (17-59) U/L ALT 47 (21-72) U/L Alkaline Phosphatase 70 (38-126) U/L Total Protein 7.0 (6.3-8.2) g/dL Albumin 4.3 (3.5-5.0) g/dL Lipase 13 L (23-300) U/L Urine Color Urine Appearance (Clear) Urine pH (5.0-8.0) Ur Specific [place] (1.001-1.035) Urine Protein (Negative) Urine Glucose (UA) (Negative) Urine Ketones (Negative) Urine Blood (Negative) Urine Nitrite (Negative) Urine Bilirubin (Negative) Urine Urobilinogen (<2.0) mg/dL Ur Leukocyte Esterase (Negative) 08/25/17 08/25/17 Range/Units 10:07 10:58 WBC (3.8-10.6) k/uL RBC (4.30-5.90) m/uL Hgb (13.0-17.5) gm/dL Hct (39.0-53.0) % MCV (80.0-100.0) fL MCH (25.0-35.0) pg MCHC (31.0-37.0) g/dL RDW (11.5-15.5) % Plt Count (150-450) k/uL Neutrophils % % Lymphocytes % % Monocytes % % Eosinophils % % Basophils % % Neutrophils # (1.3-7.7) k/uL Lymphocytes # (1.0-4.8) k/uL Monocytes # (0-1.0) k/uL Eosinophils # (0-0.7) k/uL Basophils # (0-0.2) k/uL PT 9.8 (9.0-12.0) sec INR 1.0 (<1.2) APTT 24.1 (22.0-30.0) sec Sodium (137-145) mmol/L Potassium (3.5-5.1) mmol/L Chloride (98-107) mmol/L Carbon Dioxide (22-30) mmol/L Anion Gap mmol/L BUN (9-20) mg/dL Creatinine (0.66-1.25) mg/dL Est GFR (CKD-EPI)AfAm (>60 ml/min/1.73 sqM) Est GFR (CKD-EPI)NonAf (>60 ml/min/1.73 sqM) Glucose (74-99) mg/dL Plasma Lactic Acid [place] (0.7-2.0) mmol/L Calcium (8.4-10.2) mg/dL Total Bilirubin (0.2-1.3) mg/dL AST (17-59) U/L ALT (21-72) U/L Alkaline Phosphatase (38-126) U/L Total Protein (6.3-8.2) g/dL Albumin (3.5-5.0) g/dL Lipase (23-300) U/L Urine Color Yellow Urine Appearance Clear (Clear) Urine pH 6.0 (5.0-8.0) Ur Specific [place] 1.016 (1.001-1.035) Urine Protein Negative (Negative) Urine Glucose (UA) Negative (Negative) Urine Ketones Negative (Negative) Urine Blood Negative (Negative) Urine Nitrite Negative (Negative) Urine Bilirubin Negative (Negative) Urine Urobilinogen 2.0 (<2.0) mg/dL Ur Leukocyte Esterase Negative (Negative) Disposition Clinical Impression: SBO (small bowel obstruction) Disposition: ADMITTED IP TO THIS HOSP Condition: Good Is patient prescribed a controlled substance at d/c from ED?: No Referrals: Lurdes Swanson MD [Primary Care Provider] - 1-2 days Time of Disposition: 13:50
[2017-08-25 11:28] LABS: Appearance,Urine Clear (Clear); Bilirubin,Urine Negative (Negative); Blood,Urine Negative (Negative); Color,Urine Yellow; Glucose,Urine (UA) Negative (Negative); Ketones,Urine Negative (Negative); Leukocyte Esterase,Urine Negative (Negative); Nitrite,Urine Negative (Negative); Protein,Urine Negative (Negative); Specific Gravity,Urine 1.016 (1.001-1.035)
[2017-08-25 11:32] LABS: Basophils % (A) 0 %; Eosinophils # (A) 0.3 k/uL (0-0.7); Eosinophils % (A) 4 %; HCT 45.6 % (39.0-53.0); HGB 15.5 gm/dL (13.0-17.5); Lymphocytes # (A) 1.5 k/uL (1.0-4.8); Lymphocytes % (A) 19 %; MCH 30.4 pg (25.0-35.0); MCHC 34.1 g/dL (31.0-37.0); MCV 89.4 fL (80.0-100.0); Mean Platelet Volume 7.5; Monocytes # (A) 0.6 k/uL (0-1.0); Monocytes % (A) 8 %; Neutrophils # (A) 5.4 k/uL (1.3-7.7); Neutrophils % (A) 67 %; Platelet Count 238 k/uL (150-450); RBC 5.11 m/uL (4.30-5.90); RDW 13.3 % (11.5-15.5)
[2017-08-25 11:33] LABS: Partial Thromboplastin Time 24.1 sec (22.0-30.0); Prothrombin Time 9.8 sec (9.0-12.0)
[2017-08-25 11:47] LABS: ALT 47 U/L (21-72); AST 30 U/L (17-59); Albumin 4.3 g/dL (3.5-5.0); Alkaline Phosphatase 70 U/L (38-126); Anion Gap 13 mmol/L; Blood Urea Nitrogen 13 mg/dL (9-20); Calcium 9.2 mg/dL (8.4-10.2); Carbon Dioxide 26 mmol/L (22-30); Chloride 103 mmol/L (98-107); Glucose 100 mg/dL (74-99); Lipase 13 U/L (23-300); Potassium 4.2 mmol/L (3.5-5.1); Sodium 142 mmol/L (137-145); Total Bilirubin 0.8 mg/dL (0.2-1.3)
--- NOTE | 2017-08-25 11:57 | XR ---
EXAMINATION TYPE: XR abdomen complete w decub DATE OF EXAM: 08/25/2017 COMPARISON: CT and abdomen 04/24/2017 HISTORY: Abdominal pain TECHNIQUE: Supine, upright, and left side down lateral decubitus views of the abdomen are obtained o n a total of 5 images. FINDINGS: Distention of small bowel loops is noted. There is no evident pneumoperitoneum. Air-fluid levels are noted. IMPRESSION: Findings suspicious for small bowel obstruction. Follow-up recommended.
[2017-08-25] MEDS ORDERED: RX INFO: IV CONTRAST WAS GIVEN 1 EACH MISC MISCELLANE PRN (12:09)
--- NOTE | 2017-08-25 13:05 | CT ---
EXAMINATION TYPE: CT abdomen pelvis w con DATE OF EXAM: 08/25/2017 COMPARISON: NONE HISTORY: Abdominal pain, prior history of bowel obstruction CT DLP: 2064.0 mGycm Automated exposure control for dose reduction was used. TECHNIQUE: Helical acquisition of images from the lung bases through the pelvis have been completed. CONTRAST: Performed without Oral Contrast and with IV Contrast, patient injected with 100 mL of Isovue 300. FINDINGS: LUNG BASES: No significant abnormality is appreciated. AORTA: No significant abnormality is appreciated. LIVER/GB: Liver shows low attenuation as on prior. Gallbladder is absent. PANCREAS: No significant abnormality is seen. SPLEEN: No significant abnormality is seen. ADRENALS: No significant abnormality is seen. KIDNEYS: No significant interval change, cortical cysts associated with the kidneys. REPRODUCTIVE ORGANS: No significant abnormality is seen BOWEL: There is again distended loop of small bowel present in the mid abdomen. Small bowel loops in the midabdomen also show some areas of abnormal wall thickening. Postop change noted at the gastroes ophageal junction also within the bowel in the left lower quadrant, diverticular change is extensive in the sigmoid colon, colonic wall thickening could be due to lack of distention, muscular hypertroph y, difficult to exclude a mucosal lesion. Material present within the cecum Transition zone present in the right lower quadrant. Extensive diverticular change associated with th e sigmoid colon as on previous. Suspect possible postsurgical malrotation. FREE AIR: No Free Air visible. ASCITES: None visible. PELVIC ADENOPATHY: None visualized. RETROPERITONEAL ADENOPATHY: No Retroperitoneal Adenopathy visible. URINARY BLADDER: No significant abnormality is seen. OSSEOUS STRUCTURES: No significant abnormality is seen. IMPRESSION: DIFFICULT TO EXCLUDE A BOWEL OBSTRUCTION. THERE MAY BE AN ASSOCIATED ENTERITIS. HIGH DENSITY WITHIN T HE CECUM IS INDETERMINATE, CORRELATE TO EXCLUDE HEMORRHAGE. CONSIDER DENSE ORAL MEDICINE. POSTOP OLIVAS GES, DIVERTICULOSIS. FINDINGS ARE SIMILAR TO PRIOR EXAM.
[2017-08-25] MEDS ORDERED: ONDANSETRON 4 MG/2 ML VIAL IVP PRN (13:51)
[2017-08-25] MEDS ORDERED: NALOXONE 0.4 MG/ML 1 ML VIAL IV PRN (13:51)
[2017-08-25] MEDS ORDERED: SODIUM CHLORIDE 0.9% 1,000 ML IV ONE (13:51)
--- NOTE | 2017-08-25 14:45 | XR ---
EXAMINATION TYPE: XR chest 1V portable DATE OF EXAM: 08/25/2017 COMPARISON: Prior chest x-ray 06/16/2015 HISTORY: NG tube placement TECHNIQUE: Single frontal view of the chest is obtained. FINDINGS: NG tube is coiled within the thoracic esophagus. No other interval change. IMPRESSION: NG tube is coiled within the thoracic esophagus
--- NOTE | 2017-08-25 15:10 | XR ---
EXAMINATION TYPE: XR chest 1V portable DATE OF EXAM: 08/25/2017 COMPARISON: 08/25/2017 HISTORY: Enteric tube placement TECHNIQUE: Single frontal view of the chest is obtained. FINDINGS: Enteric tube has been replaced and now appears appropriate positioning coiling within the region of the gastric fundus and extending can the distal [id number]. There is no focal air space opacity, pleural effusion, or pneumothorax seen. Right hemidiaphragm slight elevation is unchanged Th e cardiac silhouette size is upper limits of normal size. The osseous structures are intact. Modera te degenerative changes of the thoracic spine are noted. IMPRESSION: Replacement of a now appropriately placed enteric tube.
--- NOTE | 2017-08-25 16:44 | P.GSHP ---
History of Present Illness H&P Date: 08/25/17 Chief Complaint: Abdominal pain, small bowel obstruction Is a 62-year-old male who has a four-day history of abdominal pain nausea and abdominal distention. Patient has had multiple problems with intermittent small bowel obstructions. Patient felt his symptoms were similar to his previous bouts was symptoms. He was presented to the emergency room and found have evidence of enteritis or partial small bowel obstruction on CAT scan. Past Medical History Past Medical History: Cancer, Deep Vein Thrombosis (DVT), GERD/Reflux, Hyperlipidemia, Pneumonia Additional Past Medical History / Comment(s): SBOs, L lower leg DVT, blood clot behind R eye, basal skin cancer with removals, pneumonia with SIRS, sinus problems, low back pain, L foot plantar fascitis, urine flow issues at times History of Any Multi-Drug Resistant Organisms: C-DIFF Date of last positivie culture/infection: 2009 MDRO Source:: stool Past Surgical History: Adenoidectomy, Bowel Resection, Cholecystectomy, Hernia Repair, Tonsillectomy Additional Past Surgical History / Comment(s): Exploratory lap with lysis of adhesions, small bowel decompression, yamileth fundiplication, EGD, colonoscopies/ benign polypectomies, T&A twice, skin cancer removals, Past Anesthesia/Blood Transfusion Reactions: No Reported Reaction Smoking Status: Never smoker - Past Family History Mother Family Medical History: Cancer, Diabetes Mellitus Additional Family Medical History / Comment(s): Emphysema, heart problems, COLON CANCER. Father Additional Family Medical History / Comment(s): COLON CA LIVER CA,MULTIPLE MYELOMA, bone cancer Medications and Allergies Home Medications Medication Instructions Recorded Confirmed Type Ascorbic Acid [Vitamin C] 1,000 mg PO HS 04/04/15 08/25/17 History Calcium Carbonate/Vitamin D3 4 tab PO HS 04/04/15 08/25/17 History [Calcium 600-Vit D3 400 Tablet] Multivitamins, Thera [Multivitamin 2 tab PO HS 04/04/15 08/25/17 History (formulary)] Tamsulosin HCl 0.4 mg PO HS 04/20/15 08/25/17 History Docusate [Colace] 100 mg PO HS 07/04/08/25/17 History Fish Oil/Dha/Epa [Fish Oil 1,200 1 cap PO HS 05/26/16 08/25/17 History mg Fish Oil] Folic Acid 0.8 mg PO HS 05/26/16 08/25/17 History Aspirin 325 mg PO HS 11/20/16 08/25/17 History Simvastatin [Zocor] 20 mg PO HS 11/20/16 08/25/17 History Hyoscyamine Sulfate [Levsin] 0.125 mg PO HS 04/24/17 08/25/17 History Omeprazole 20 mg PO HS PRN 04/24/17 08/25/17 History Selenium 200 mcg PO HS 08/25/17 08/25/17 History Allergies Allergy/AdvReac Type Severity Reaction Status Date / Time Penicillins Allergy Rash/Hives, Verified 08/25/17 10:45 WHEEZING Surgical - Exam Vital Signs Temp Pulse Resp BP Pulse Ox 96.9 F L 76 18 129/71 96 08/25/17 10:14 08/25/17 10:14 08/25/17 10:14 08/25/17 10:14 08/25/17 10:14 - General well developed, no distress - Eyes PERRL - ENT normal pinna - Neck no masses - Respiratory normal expansion - Cardiovascular Rhythm: regular - Abdomen Abdomen: soft, non tender Results - Labs 08/25/17 10:07 08/25/17 10:07 Abnormal Lab Results - Last 24 Hours (Table) 08/25/17 Range/Units 10:07 Glucose 100 H (74-99) mg/dL Lipase 13 L (23-300) U/L Diabetes panel 08/25/17 Range/Units 10:07 Sodium 142 (137-145) mmol/L Potassium 4.2 (3.5-5.1) mmol/L Chloride 103 (98-107) mmol/L Carbon Dioxide 26 (22-30) mmol/L BUN 13 (9-20) mg/dL Creatinine 0.81 (0.66-1.25) mg/dL Glucose 100 H (74-99) mg/dL Calcium 9.2 (8.4-10.2) mg/dL AST 30 (17-59) U/L ALT 47 (21-72) U/L Alkaline Phosphatase 70 (38-126) U/L Total Protein 7.0 (6.3-8.2) g/dL Albumin 4.3 (3.5-5.0) g/dL Calcium panel 08/25/17 Range/Units 10:07 Calcium 9.2 (8.4-10.2) mg/dL Albumin 4.3 (3.5-5.0) g/dL Pituitary panel 08/25/17 Range/Units 10:07 Sodium 142 (137-145) mmol/L Potassium 4.2 (3.5-5.1) mmol/L Chloride 103 (98-107) mmol/L Carbon Dioxide 26 (22-30) mmol/L BUN 13 (9-20) mg/dL Creatinine 0.81 (0.66-1.25) mg/dL Glucose 100 H (74-99) mg/dL Calcium 9.2 (8.4-10.2) mg/dL Adrenal panel 08/25/17 Range/Units 10:07 Sodium 142 (137-145) mmol/L Potassium 4.2 (3.5-5.1) mmol/L Chloride 103 (98-107) mmol/L Carbon Dioxide 26 (22-30) mmol/L BUN 13 (9-20) mg/dL Creatinine 0.81 (0.66-1.25) mg/dL Glucose 100 H (74-99) mg/dL Calcium 9.2 (8.4-10.2) mg/dL Total Bilirubin 0.8 (0.2-1.3) mg/dL AST 30 (17-59) U/L ALT 47 (21-72) U/L Alkaline Phosphatase 70 (38-126) U/L Total Protein 7.0 (6.3-8.2) g/dL Albumin 4.3 (3.5-5.0) g/dL Assessment and Plan Assessment: Ileus versus partial small bowel charge. Patient will continue NG tube decompression today. He will start on a diet once his bowel function has improved.
[2017-08-25] MEDS: MORPHINE SULFATE 4 MG/0.8 ML SYRINGE (INJ) IV PRN ×2 (18:29→21:43)
[2017-08-26] MEDS: MORPHINE SULFATE 4 MG/0.8 ML SYRINGE (INJ) IV PRN ×6 (01:32→21:55)
[2017-08-26 08:43] LABS: Basophils % (A) 1 %; Eosinophils # (A) 0.3 k/uL (0-0.7); Eosinophils % (A) 4 %; HCT 42.6 % (39.0-53.0); HGB 14.5 gm/dL (13.0-17.5); Lymphocytes # (A) 1.4 k/uL (1.0-4.8); Lymphocytes % (A) 19 %; MCH 31.1 pg (25.0-35.0); MCV 91.4 fL (80.0-100.0); Mean Platelet Volume 7.1; Monocytes # (A) 0.5 k/uL (0-1.0); Monocytes % (A) 6 %; Neutrophils # (A) 5.1 k/uL (1.3-7.7); Neutrophils % (A) 68 %; Platelet Count 229 k/uL (150-450); RBC 4.66 m/uL (4.30-5.90); RDW 13.1 % (11.5-15.5); WBC 7.6 k/uL (3.8-10.6)
[2017-08-26 09:06] LABS: ALT 37 U/L (21-72); AST 27 U/L (17-59); Albumin 3.7 g/dL (3.5-5.0); Alkaline Phosphatase 56 U/L (38-126); Anion Gap 11 mmol/L; Blood Urea Nitrogen 13 mg/dL (9-20); Calcium 8.4 mg/dL (8.4-10.2); Carbon Dioxide 27 mmol/L (22-30); Chloride 105 mmol/L (98-107); Glucose 85 mg/dL (74-99); Potassium 4.3 mmol/L (3.5-5.1); Sodium 143 mmol/L (137-145); Total Bilirubin 0.4 mg/dL (0.2-1.3)
--- NOTE | 2017-08-26 13:18 | P.CONS ---
History of Present Illness - Reason for Consult Consult date: 08/26/17 Medical management - Chief Complaint Abdominal pain - History of Present Illness This is a 62-year-old gentleman with past medical history noted below significant for previous bowel obstruction requiring bowel resection as well as lysis of adhesion. Patient presented to the emergency room with abdominal pain. He said his pain started a few days ago and is being getting progressively worse. He said his last bowel movement was Friday morning and was normal and afterward he had couple loose bowel movement. Since then no more bowel movement. He said that his pain yesterday was 10 out of 10 in severity and it was all over his abdomen. He denies nausea or vomiting. No fevers or chills. He presented to the emergency room and computed tomography scan of the abdomen showed questionable small bowel obstruction. Patient had an NG tube in place and currently admitted under Gen. surgery. He is awake and alert when I saw him. His pain is well controlled. He is passing gas but no bowel movement. No significant drainage in the wall suctioning to the NG tube. Review of Systems Review of system: 14 points review of systems were obtained and were negative except to what were mentioned in the HPI. Past Medical History Past Medical History: Cancer, Deep Vein Thrombosis (DVT), GERD/Reflux, Hyperlipidemia, Pneumonia Additional Past Medical History / Comment(s): SBOs, L lower leg DVT, blood clot behind R eye, basal skin cancer with removals, pneumonia with SIRS, sinus problems, low back pain, L foot plantar fascitis, urine flow issues at times History of Any Multi-Drug Resistant Organisms: C-DIFF Year Discovered:: 2009 MDRO Source:: stool Past Surgical History: Adenoidectomy, Bowel Resection, Cholecystectomy, Hernia Repair, Tonsillectomy Additional Past Surgical History / Comment(s): Exploratory lap with lysis of adhesions, small bowel decompression, yamileth fundiplication, EGD, colonoscopies/ benign polypectomies, T&A twice, skin cancer removals, Past Anesthesia/Blood Transfusion Reactions: No Reported Reaction Smoking Status: Never smoker - Past Family History Mother Family Medical History: Cancer, Diabetes Mellitus Additional Family Medical History / Comment(s): Emphysema, heart problems, COLON CANCER. Father Additional Family Medical History / Comment(s): COLON CA LIVER CA,MULTIPLE MYELOMA, bone cancer Medications and Allergies Home Medications Medication Instructions Recorded Confirmed Type Ascorbic Acid [Vitamin C] 1,000 mg PO HS 04/04/15 08/25/17 History Calcium Carbonate/Vitamin D3 4 tab PO HS 04/04/15 08/25/17 History [Calcium 600-Vit D3 400 Tablet] Multivitamins, Thera [Multivitamin 2 tab PO HS 04/04/15 08/25/17 History (formulary)] Tamsulosin HCl 0.4 mg PO HS 04/20/15 08/25/17 History Docusate [Colace] 100 mg PO HS 07/05/15 08/25/17 History Fish Oil/Dha/Epa [Fish Oil 1,200 1 cap PO HS 05/26/16 08/25/17 History mg Fish Oil] Folic Acid 0.8 mg PO HS 05/26/16 08/25/17 History Aspirin 325 mg PO HS 11/20/16 08/25/17 History Simvastatin [Zocor] 20 mg PO HS 11/20/16 08/25/17 History Hyoscyamine Sulfate [Levsin] 0.125 mg PO HS 04/24/17 08/25/17 History Omeprazole 20 mg PO HS PRN 04/24/17 08/25/17 History Selenium 200 mcg PO HS 08/25/17 08/25/17 History Allergies Allergy/AdvReac Type Severity Reaction Status Date / Time Penicillins Allergy Rash/Hives, Verified 08/25/17 10:45 WHEEZING Physical Exam Vitals: Vital Signs Temp Pulse Pulse Resp BP BP Pulse Ox 08/26/17 05:41 98.7 F 77 16 111/61 94 L 08/25/17 22:47 97.2 F L 57 L 16 107/56 93 L 08/25/17 15:22 98.6 F 61 18 117/69 94 L 08/25/17 14:26 76 18 131/76 97 08/25/17 13:43 98 F 68 18 109/58 95 Intake and Output 08/25/17 08/26/17 08/26/17 22:59 06:59 14:59 Output Total 600 650 Balance -600 -650 Output: Gastric Drainage 50 Urine 600 600 Other: Voiding Method Toilet Urinal General: The patient is awake and alert, in no distress Eye: there is normal conjunctiva bilaterally. Neck: The neck is supple, there is no JVD. Cardiovascular: Normal S1-S2, no S3-S4, no murmurs. Respiratory: Lungs clear to auscultation bilaterally Gastrointestinal: Abdomen is soft, nontender Musculoskeletal: There is no pedal edema. Neurological:. Speech is normal. Skin: Skin is warm and dry Results CBC & Chem 7: 08/26/17 08:12 08/26/17 08:12 Labs: Abnormal Lab Results - Last 24 Hours (Table) 08/26/17 Range/Units 08:12 Total Protein 6.0 L (6.3-8.2) g/dL Assessment and Plan Assessment: 1. Ileus/small bowel obstruction: Seen and evaluated by general surgery. Currently NG tube in place to intermittent wall suctioning. Continue IV fluid hydration. Pain uncontrolled and anti-emetic as needed. 2. BPH: Resume Flomax 3. History of left lower extremity DVT finished anticoagulation course. 4. GERD we'll continue with IV Protonix for now 5. DVT prophylaxis started on subcu heparin Today, I reviewed her medication list and lab work results. Continue current regimen. Thank you very much for the consultation. I will continue to follow up on the patient closely.
[2017-08-26] MEDS: SODIUM CHLORIDE 0.9% 1,000 ML IV SCH (14:05)
--- NOTE | 2017-08-26 18:07 | P.PN ---
Progress Note - Text Progress Note Date: 08/26/17 the patient states he feels better. He has less of the pain he has had flatus. He is hungry. On exam his vital signs are stable. His abdomen is soft. The patient will have his nasogastric tube removed. We will start him on a clear liquid diet.
[2017-08-26] MEDS: TAMSULOSIN 0.4 MG CAP.ER.24H PO SCH (21:12)
[2017-08-26] MEDS: HEPARIN SODIUM,PORCINE 5,000 UNIT/ML 1 ML VIAL SQ SCH (21:13)
[2017-08-26] MEDS: ASPIRIN 325 MG TAB PO SCH (21:13)
[2017-08-26] MEDS: ATORVASTATIN 10 MG TAB PO SCH (21:13)
[2017-08-26] MEDS: DOCUSATE 100 MG CAP PO SCH (21:13)
[2017-08-27] MEDS: MORPHINE SULFATE 4 MG/0.8 ML SYRINGE (INJ) IV PRN ×6 (02:24→22:42)
[2017-08-27] MEDS: SODIUM CHLORIDE 0.9% 1,000 ML IV SCH ×3 (05:57→22:40)
[2017-08-27] MEDS: PANTOPRAZOLE 40 MG/10 ML VIAL IVP SCH (08:24)
[2017-08-27] MEDS: HEPARIN SODIUM,PORCINE 5,000 UNIT/ML 1 ML VIAL SQ SCH ×2 (08:24→21:55)
[2017-08-27 09:56] LABS: Basophils % (A) 1 %; Eosinophils # (A) 0.4 k/uL (0-0.7); Eosinophils % (A) 7 %; HCT 39.9 % (39.0-53.0); HGB 13.4 gm/dL (13.0-17.5); Lymphocytes # (A) 1.3 k/uL (1.0-4.8); Lymphocytes % (A) 25 %; MCH 30.6 pg (25.0-35.0); MCHC 33.7 g/dL (31.0-37.0); MCV 90.9 fL (80.0-100.0); Mean Platelet Volume 6.9; Monocytes # (A) 0.5 k/uL (0-1.0); Monocytes % (A) 8 %; Neutrophils # (A) 3.1 k/uL (1.3-7.7); Neutrophils % (A) 56 %; Platelet Count 213 k/uL (150-450); RBC 4.39 m/uL (4.30-5.90); RDW 13.3 % (11.5-15.5); WBC 5.4 k/uL (3.8-10.6)
[2017-08-27 10:02] LABS: ALT 37 U/L (21-72); AST 23 U/L (17-59); Albumin 3.5 g/dL (3.5-5.0); Alkaline Phosphatase 53 U/L (38-126); Anion Gap 12 mmol/L; Blood Urea Nitrogen 9 mg/dL (9-20); Calcium 8.4 mg/dL (8.4-10.2); Carbon Dioxide 24 mmol/L (22-30); Chloride 106 mmol/L (98-107); Glucose 117 mg/dL (74-99); Sodium 142 mmol/L (137-145); Total Bilirubin 0.4 mg/dL (0.2-1.3); Total Protein 5.8 g/dL (6.3-8.2)
--- NOTE | 2017-08-27 13:41 | P.PN ---
Subjective Patient is doing a lot better today. Pain is well controlled. NG tube was discontinued. He is tolerating soft diet with no difficulty. Objective - Vital Signs Vital signs: Vital Signs Temp 98.1 F 08/27/17 06:00 Pulse 60 08/27/17 06:00 Resp 20 08/27/17 06:00 BP 117/73 08/27/17 06:00 Pulse Ox 97 08/27/17 06:00 Intake & Output 08/26/17 08/27/17 08/27/17 18:59 06:59 18:59 Other: Voiding Method Toilet Toilet Urinal Urinal # Voids 4 3 3 - Exam General: The patient is awake and alert, in no distress Eye: there is normal conjunctiva bilaterally. Neck: The neck is supple, there is no JVD. Cardiovascular: Normal S1-S2, no S3-S4, no murmurs. Respiratory: Lungs clear to auscultation bilaterally Gastrointestinal: Abdomen is soft, nontender Musculoskeletal: There is no pedal edema. Neurological:. Speech is normal. Skin: Skin is warm and dry - Labs CBC & Chem 7: 08/27/17 09:08 08/27/17 09:08 Labs: Abnormal Lab Results - Last 24 Hours (Table) 08/27/17 Range/Units 09:08 Glucose 117 H (74-99) mg/dL Total Protein 5.8 L (6.3-8.2) g/dL Assessment and Plan Assessment: 1. Ileus/small bowel obstruction: Seen and evaluated by general surgery. NG tube was discontinued. Patient is tolerating soft diet with no difficulty. Discontinue IV fluids. Pain uncontrolled and anti-emetic as needed. 2. BPH: Resume Flomax 3. History of left lower extremity DVT finished anticoagulation course. 4. GERD we'll continue with IV Protonix for now 5. DVT prophylaxis started on subcu heparin Today, I reviewed her medication list and lab work results. Continue current regimen. Thank you very much for the consultation. I will continue to follow up on the patient closely.
--- NOTE | 2017-08-27 17:25 | P.PN ---
Progress Note - Text Progress Note Date: 08/27/17 Better. He has had several bowel movements today. He states his pain is improved. On exam his vital signs are stable. His abdomen is soft. Patient's ileus is resolving. He will have his diet advanced. He'll be hopefully discharge home tomorrow morning.
[2017-08-27] MEDS: ASPIRIN 325 MG TAB PO SCH (21:55)
[2017-08-27] MEDS: ATORVASTATIN 10 MG TAB PO SCH (21:55)
[2017-08-27] MEDS: TAMSULOSIN 0.4 MG CAP.ER.24H PO SCH (21:55)
[2017-08-27] MEDS: DOCUSATE 100 MG CAP PO SCH (21:55)
[2017-08-28 01:22] VITALS: RESP 18
[2017-08-28] MEDS: MORPHINE SULFATE 4 MG/0.8 ML SYRINGE (INJ) IV PRN (02:30)
[2017-08-28 07:05] VITALS: BP 123/73; PULSE 73; TEMP 97.2
[2017-08-28 08:04] LABS: Basophils % (A) 0 %; Eosinophils # (A) 0.4 k/uL (0-0.7); Eosinophils % (A) 5 %; HCT 44.9 % (39.0-53.0); HGB 14.8 gm/dL (13.0-17.5); Lymphocytes # (A) 1.4 k/uL (1.0-4.8); Lymphocytes % (A) 18 %; Mean Platelet Volume 7.4; Monocytes # (A) 0.4 k/uL (0-1.0); Monocytes % (A) 5 %; Neutrophils # (A) 5.6 k/uL (1.3-7.7); Neutrophils % (A) 70 %; Platelet Count 231 k/uL (150-450); RBC 4.94 m/uL (4.30-5.90); RDW 13.3 % (11.5-15.5)
[2017-08-28 08:23] LABS: ALT 36 U/L (21-72); AST 26 U/L (17-59); Alkaline Phosphatase 63 U/L (38-126); Anion Gap 11 mmol/L; Blood Urea Nitrogen 11 mg/dL (9-20); Calcium 8.9 mg/dL (8.4-10.2); Carbon Dioxide 28 mmol/L (22-30); Chloride 104 mmol/L (98-107); Glucose 98 mg/dL (74-99); Sodium 143 mmol/L (137-145); Total Bilirubin 0.5 mg/dL (0.2-1.3); Total Protein 6.5 g/dL (6.3-8.2)
[2017-08-28] MEDS: HEPARIN SODIUM,PORCINE 5,000 UNIT/ML 1 ML VIAL SQ SCH (09:10)
[2017-08-28] MEDS: PANTOPRAZOLE 40 MG/10 ML VIAL IVP SCH (09:10)
[2017-08-28] MEDS ORDERED: MORPHINE ORAL SOLN 10 MG/5 ML CUP PO PRN (10:21)
--- NOTE | 2017-08-28 12:53 | P.PN ---
Subjective Patient is doing well today. He was eating [place] food with his family when I saw him. He denies any pain. Objective - Vital Signs Vital signs: Vital Signs Temp 97.2 F L 08/28/17 06:00 Pulse 73 08/28/17 06:00 Resp 18 08/28/17 06:00 BP 123/73 08/28/17 06:00 Pulse Ox 96 08/28/17 06:00 Intake & Output 08/27/17 08/28/17 08/28/17 18:59 06:59 18:59 Other: Voiding Method Toilet Toilet Urinal Urinal # Voids 3 1 - Exam General: The patient is awake and alert, in no distress Eye: there is normal conjunctiva bilaterally. Neck: The neck is supple, there is no JVD. Cardiovascular: Normal S1-S2, no S3-S4, no murmurs. Respiratory: Lungs clear to auscultation bilaterally Gastrointestinal: Abdomen is soft, nontender Musculoskeletal: There is no pedal edema. Neurological:. Speech is normal. Skin: Skin is warm and dry - Labs CBC & Chem 7: 08/28/17 07:36 08/28/17 07:36 Assessment and Plan Assessment: 1. Ileus/small bowel obstruction: Resolved. Seen and evaluated by general surgery. NG tube was discontinued. Patient is tolerating diet with no difficulty. Discontinue IV fluids. Pain uncontrolled and anti-emetic as needed. 2. BPH: Resume Flomax 3. History of left lower extremity DVT finished anticoagulation course. 4. GERD we'll continue with IV Protonix for now 5. DVT prophylaxis started on subcu heparin Medically cleared for discharge home
[2017-08-28] MEDS ORDERED: INFLUENZA VACCINE (6 MOS+) 60 MCG/0.5 ML SYRINGE IM ONE (13:14)
[2017-08-29] MEDS ORDERED: PANTOPRAZOLE 40 MG TABLET PO SCH (07:30)
== END 2017-08-28 13:21 | disposition home or self-care (01) | DRG 390 ==
LOC: EC 10:14 → 4MS4W 13:50
PROVIDERS: ADMIT Surgery; ATTEND Surgery
DX: K56.7 Ileus, unspecified (principal); E78.5 Hyperlipidemia, unspecified; K56.600 Partial intestinal obstruction, unspecified as to cause; K21.9 Gastro-esophageal reflux disease without esophagitis; N40.0 Benign prostatic hyperplasia without lower urinary tract symptoms; Z79.899 Other long term (current) drug therapy; Z79.82 Long term (current) use of aspirin; Z86.718 Personal history of other venous thrombosis and embolism; Z85.828 Personal history of other malignant neoplasm of skin; Z88.0 Allergy status to penicillin; Z87.01 Personal history of pneumonia (recurrent); Z86.010 Personal history of colon polyps; Z90.49 Acquired absence of other specified parts of digestive tract; Z83.3 Family history of diabetes mellitus; Z82.5 Family history of asthma and other chronic lower respiratory diseases; Z80.8 Family history of malignant neoplasm of other organs or systems; Z80.0 Family history of malignant neoplasm of digestive organs; Z80.7 Family history of other malignant neoplasms of lymphoid, hematopoietic and related tissues
CPT/HCPCS: 36415; 43753; 71045; 74021; 74177; 80053; 81003; 83605; 83690; 85025; 85610; 85730; 96361; 96374; 96375; 96376; 99285

== ENCOUNTER 2017-10-18 14:53 | Inpatient (IN) | payer OTHER ==
[2017-10-18] MEDS ORDERED: MORPHINE SULFATE 2 MG/ML SYRINGE IVP STA ×2 (15:17→16:56)
[2017-10-18] MEDS ORDERED: SODIUM CHLORIDE 0.9% 1,000 ML IV STA (15:17)
[2017-10-18] MEDS ORDERED: ONDANSETRON 4 MG/2 ML VIAL IVP STA (15:17)
--- NOTE | 2017-10-18 15:19 | ED ---
General Adult HPI - General Chief complaint: Abdominal Pain Stated complaint: abd pain; hx of blockage Time Seen by Provider: 10/18/17 15:10 Source: patient, RN notes reviewed Mode of arrival: ambulatory Limitations: no limitations - History of Present Illness Initial comments: Patient 62-year-old male presented to the emergency room today with a chief complaint of right-sided abdominal pain. Patient does admit to a history of small bowel infarction. States most recently had one approximately 3 months ago. He states he's had similar symptoms in the past. He states today began feeling some sharp pain located on the right side of the abdomen consistent with small bowel obstruction that is had in the past. He does admit that he has had bowel movements today. He states 3 small bowel movements. He denies any other complaints currently. Patient denies any recent fever, chills, shortness of breath, chest pain, back pain, numbness or tingling, dysuria or hematuria, constipation, headaches or visual changes, or any other complaints. - Related Data Home Medications Medication Instructions Recorded Confirmed Ascorbic Acid [Vitamin C] 1,000 mg PO HS 04/04/15 08/25/17 Calcium Carbonate/Vitamin D3 4 tab PO HS 04/04/15 08/25/17 [Calcium 600-Vit D3 400 Tablet] Multivitamins, Thera [Multivitamin 2 tab PO HS 04/04/15 08/25/17 (formulary)] Tamsulosin HCl 0.4 mg PO HS 04/20/15 08/25/17 Docusate [Colace] 100 mg PO HS 07/05/15 08/25/17 Fish Oil/Dha/Epa [Fish Oil 1,200 1 cap PO HS 05/26/16 08/25/17 mg Fish Oil] Folic Acid 0.8 mg PO HS 05/26/16 08/25/17 Aspirin 325 mg PO HS 11/20/16 08/25/17 Simvastatin [Zocor] 20 mg PO HS 11/20/16 08/25/17 Hyoscyamine Sulfate [Levsin] 0.125 mg PO HS 04/24/17 08/25/17 Omeprazole 20 mg PO HS PRN 04/24/17 08/25/17 Selenium 200 mcg PO HS 08/25/17 08/25/17 Allergies Allergy/AdvReac Type Severity Reaction Status Date / Time Penicillins Allergy Rash/Hives, Verified 10/18/17 15:03 WHEEZING Review of Systems ROS Statement: Those systems with pertinent positive or pertinent negative responses have been documented in the HPI. ROS Other: All systems not noted in ROS Statement are negative. Past Medical History Past Medical History: Cancer, Deep Vein Thrombosis (DVT), GERD/Reflux, Hyperlipidemia, Pneumonia Additional Past Medical History / Comment(s): SBOs, L lower leg DVT, blood clot behind R eye, basal skin cancer with removals, pneumonia with SIRS, sinus problems, low back pain, L foot plantar fascitis, urine flow issues at times History of Any Multi-Drug Resistant Organisms: C-DIFF Date of last positivie culture/infection: 2009 MDRO Source:: stool Past Surgical History: Adenoidectomy, Bowel Resection, Cholecystectomy, Hernia Repair, Tonsillectomy Additional Past Surgical History / Comment(s): Exploratory lap with lysis of adhesions, small bowel decompression, yamileth fundiplication, EGD, colonoscopies/ benign polypectomies, T&A twice, skin cancer removals, Past Anesthesia/Blood Transfusion Reactions: No Reported Reaction Past Psychological History: No Psychological Hx Reported Smoking Status: Never smoker Past Alcohol Use History: None Reported Past Drug Use History: None Reported - Past Family History Mother Family Medical History: Cancer, Diabetes Mellitus Additional Family Medical History / Comment(s): Emphysema, heart problems, COLON CANCER. Father Additional Family Medical History / Comment(s): COLON CA LIVER CA,MULTIPLE MYELOMA, bone cancer General Exam - General Exam Comments Initial Comments: General: The patient is awake and alert, in no distress, and does not appear acutely ill. Eye: Pupils are equal, round and reactive to light, extra-ocular movements are intact. No nystagmus. There is normal conjunctiva bilaterally. No signs of icterus. Ears, nose, mouth and throat: There are moist mucous membranes and no oral lesions. Neck: The neck is supple, there is no tenderness or JVD. Cardiovascular: There is a regular rate and rhythm. No murmur, rub or gallop is appreciated. Respiratory: Lungs are clear to auscultation, respirations are non-labored, breath sounds are equal. No wheezes, stridor, rales, or rhonchi. Gastrointestinal: Abdomen soft on palpation. Does have tenderness in the right lower quadrant. No rebound tenderness. No guarding. No CVA tenderness. Musculoskeletal: Normal ROM, no tenderness. Strength 5/5. Sensation intact. Pulses equal bilaterally 2+. Neurological: A&O x 3. CN II-XII intact, There are no obvious motor or sensory deficits. Coordination appears grossly intact. Speech is normal. Skin: Skin is warm and dry and no rashes or lesions are noted. Psychiatric: Cooperative, appropriate mood & affect, normal judgment. Limitations: no limitations Course Vital Signs 10/18/17 10/18/17 15:03 15:55 Temperature 98.6 F Pulse Rate 77 71 Respiratory 18 18 Rate Blood Pressure 152/92 131/76 O2 Sat by Pulse 96 95 Oximetry Medical Decision Making - Medical Decision Making Patient's labs been reviewed. Patient's x-ray shows findings consistent with small bowel truck. Patient does have history of multiple small bowel structures in the past. Case was discussed with attending physician Dr. Haywood Who did discuss the case with patient's surgeon Dr. Fu who will admit the patient. - Lab Data Result diagrams: 10/18/17 15:40 10/18/17 15:40 Lab Results 10/18/17 10/18/17 10/18/17 Range/Units 15:40 15:40 15:40 WBC 10.1 (3.8-10.6) k/uL RBC 5.08 (4.30-5.90) m/uL Hgb 15.9 (13.0-17.5) gm/dL Hct 45.8 (39.0-53.0) % MCV 90.1 (80.0-100.0) fL MCH 31.3 (25.0-35.0) pg MCHC 34.7 (31.0-37.0) g/dL RDW 13.2 (11.5-15.5) % Plt Count 248 (150-450) k/uL Neutrophils % 74 % Lymphocytes % 14 % Monocytes % 7 % Eosinophils % 4 % Basophils % 0 % Neutrophils # 7.5 (1.3-7.7) k/uL Lymphocytes # 1.4 (1.0-4.8) k/uL Monocytes # 0.7 (0-1.0) k/uL Eosinophils # 0.4 (0-0.7) k/uL Basophils # 0.0 (0-0.2) k/uL PT 9.8 (9.0-12.0) sec INR 1.0 (<1.2) APTT 24.4 (22.0-30.0) sec Sodium 140 (137-145) mmol/L Potassium 4.9 (3.5-5.1) mmol/L Chloride 101 (98-107) mmol/L Carbon Dioxide 28 (22-30) mmol/L Anion Gap 11 mmol/L BUN 14 (9-20) mg/dL Creatinine 0.75 (0.66-1.25) mg/dL Est GFR (CKD-EPI)AfAm >90 (>60 ml/min/1.73 sqM) Est GFR (CKD-EPI)NonAf >90 (>60 ml/min/1.73 sqM) Glucose 101 H (74-99) mg/dL Calcium 10.0 (8.4-10.2) mg/dL Total Bilirubin 0.6 (0.2-1.3) mg/dL AST 45 (17-59) U/L ALT 45 (21-72) U/L Alkaline Phosphatase 61 (38-126) U/L Total Protein 7.4 (6.3-8.2) g/dL Albumin 4.6 (3.5-5.0) g/dL Amylase 48 (30-110) U/L Lipase <10 L (23-300) U/L Urine Color Urine Appearance (Clear) Urine pH (5.0-8.0) Ur Specific [place] (1.001-1.035) Urine Protein (Negative) Urine Glucose (UA) (Negative) Urine Ketones (Negative) Urine Blood (Negative) Urine Nitrite (Negative) Urine Bilirubin (Negative) Urine Urobilinogen (<2.0) mg/dL Ur Leukocyte Esterase (Negative) 10/18/17 Range/Units 15:40 WBC (3.8-10.6) k/uL RBC (4.30-5.90) m/uL Hgb (13.0-17.5) gm/dL Hct (39.0-53.0) % MCV (80.0-100.0) fL MCH (25.0-35.0) pg MCHC (31.0-37.0) g/dL RDW (11.5-15.5) % Plt Count (150-450) k/uL Neutrophils % % Lymphocytes % % Monocytes % % Eosinophils % % Basophils % % Neutrophils # (1.3-7.7) k/uL Lymphocytes # (1.0-4.8) k/uL Monocytes # (0-1.0) k/uL Eosinophils # (0-0.7) k/uL Basophils # (0-0.2) k/uL PT (9.0-12.0) sec INR (<1.2) APTT (22.0-30.0) sec Sodium (137-145) mmol/L Potassium (3.5-5.1) mmol/L Chloride (98-107) mmol/L Carbon Dioxide (22-30) mmol/L Anion Gap mmol/L BUN (9-20) mg/dL Creatinine (0.66-1.25) mg/dL Est GFR (CKD-EPI)AfAm (>60 ml/min/1.73 sqM) Est GFR (CKD-EPI)NonAf (>60 ml/min/1.73 sqM) Glucose (74-99) mg/dL Calcium (8.4-10.2) mg/dL Total Bilirubin (0.2-1.3) mg/dL AST (17-59) U/L ALT (21-72) U/L Alkaline Phosphatase (38-126) U/L Total Protein (6.3-8.2) g/dL Albumin (3.5-5.0) g/dL Amylase (30-110) U/L Lipase (23-300) U/L Urine Color Yellow Urine Appearance Clear (Clear) Urine pH 6.5 (5.0-8.0) Ur Specific [place] 1.009 (1.001-1.035) Urine Protein Negative (Negative) Urine Glucose (UA) Negative (Negative) Urine Ketones Negative (Negative) Urine Blood Negative (Negative) Urine Nitrite Negative (Negative) Urine Bilirubin Negative (Negative) Urine Urobilinogen <2.0 (<2.0) mg/dL Ur Leukocyte Esterase Negative (Negative) Disposition Clinical Impression: SBO (small bowel obstruction) Disposition: ADMITTED IP TO THIS [facility] Condition: Stable Is patient prescribed a controlled substance at d/c from ED?: No Referrals: Lurdes Swanson MD [Primary Care Provider] - 1-2 days
[2017-10-18 15:50] LABS: Basophils % (A) 0 %; Eosinophils # (A) 0.4 k/uL (0-0.7); Eosinophils % (A) 4 %; HCT 45.8 % (39.0-53.0); HGB 15.9 gm/dL (13.0-17.5); Lymphocytes # (A) 1.4 k/uL (1.0-4.8); Lymphocytes % (A) 14 %; MCH 31.3 pg (25.0-35.0); MCHC 34.7 g/dL (31.0-37.0); MCV 90.1 fL (80.0-100.0); Mean Platelet Volume 7.2; Monocytes # (A) 0.7 k/uL (0-1.0); Monocytes % (A) 7 %; Neutrophils # (A) 7.5 k/uL (1.3-7.7); Neutrophils % (A) 74 %; Platelet Count 248 k/uL (150-450); RBC 5.08 m/uL (4.30-5.90); RDW 13.2 % (11.5-15.5); WBC 10.1 k/uL (3.8-10.6)
[2017-10-18 15:51] LABS: Appearance,Urine Clear (Clear); Bilirubin,Urine Negative (Negative); Blood,Urine Negative (Negative); Color,Urine Yellow; Glucose,Urine (UA) Negative (Negative); Ketones,Urine Negative (Negative); Leukocyte Esterase,Urine Negative (Negative); Nitrite,Urine Negative (Negative); PH, Urine 6.5 (5.0-8.0); Protein,Urine Negative (Negative); Specific Gravity,Urine 1.009 (1.001-1.035); Urobilinogen,Urine <2.0 mg/dL (<2.0)
[2017-10-18 15:58] LABS: ALT 45 U/L (21-72); AST 45 U/L (17-59); Albumin 4.6 g/dL (3.5-5.0); Alkaline Phosphatase 61 U/L (38-126); Amylase 48 U/L (30-110); Anion Gap 11 mmol/L; Blood Urea Nitrogen 14 mg/dL (9-20); Carbon Dioxide 28 mmol/L (22-30); Chloride 101 mmol/L (98-107); Glucose 101 mg/dL (74-99); Lipase <10 U/L (23-300); Sodium 140 mmol/L (137-145); Total Bilirubin 0.6 mg/dL (0.2-1.3); Total Protein 7.4 g/dL (6.3-8.2)
[2017-10-18 15:59] LABS: Partial Thromboplastin Time 24.4 sec (22.0-30.0); Potassium 4.9 mmol/L (3.5-5.1); Prothrombin Time 9.8 sec (9.0-12.0)
--- NOTE | 2017-10-18 16:33 | XR ---
EXAMINATION TYPE: XR abdomen complete w decub DATE OF EXAM: 10/18/2017 COMPARISON: 08/25/2017 HISTORY: Abdominal pain TECHNIQUE: Supine, upright, and left side down lateral decubitus views of the abdomen are obtained. FINDINGS: There are multiple dilated gas and fluid-filled loops of small bowel in the mid abdomen. Large bowel gas pattern is normal. There is no sign of free air. Lung bases are clear. I see no pathologic calcif ications over the kidneys. IMPRESSION: Dilated small bowel similar to old exam and consistent with partial mechanical obstruction or small b owel ileus.
[2017-10-18] MEDS ORDERED: LORazepam 2 MG/ML INJ IV PRN (17:01)
[2017-10-18] MEDS ORDERED: SODIUM CHLORIDE 0.9% 1,000 ML IV ONE (17:01)
[2017-10-18] MEDS ORDERED: MORPHINE SULFATE 2 MG/ML SYRINGE IV PRN (17:01)
[2017-10-18] MEDS ORDERED: ONDANSETRON 4 MG/2 ML VIAL IVP PRN (17:01)
[2017-10-18] MEDS ORDERED: NALOXONE 0.4 MG/ML 1 ML VIAL IV PRN (17:01)
[2017-10-18 17:59] VITALS: BMI 33.2
[2017-10-18] MEDS: HYDROmorphone 0.5 MG/0.5 ML SYRINGE IVP PRN (20:41)
[2017-10-19] MEDS: HYDROmorphone 0.5 MG/0.5 ML SYRINGE IVP PRN ×6 (00:35→20:46)
[2017-10-19 07:24] LABS: Basophils % (A) 1 %; Eosinophils # (A) 0.3 k/uL (0-0.7); Eosinophils % (A) 4 %; HCT 41.9 % (39.0-53.0); HGB 14.4 gm/dL (13.0-17.5); Lymphocytes # (A) 1.3 k/uL (1.0-4.8); Lymphocytes % (A) 16 %; MCH 32.3 pg (25.0-35.0); MCHC 34.5 g/dL (31.0-37.0); MCV 93.7 fL (80.0-100.0); Monocytes # (A) 0.6 k/uL (0-1.0); Monocytes % (A) 8 %; Neutrophils # (A) 5.5 k/uL (1.3-7.7); Neutrophils % (A) 68 %; Platelet Count 209 k/uL (150-450); RBC 4.47 m/uL (4.30-5.90); RDW 13.9 % (11.5-15.5)
[2017-10-19 07:37] LABS: ALT 49 U/L (21-72); AST 33 U/L (17-59); Albumin 3.7 g/dL (3.5-5.0); Alkaline Phosphatase 57 U/L (38-126); Anion Gap 10 mmol/L; Blood Urea Nitrogen 16 mg/dL (9-20); Carbon Dioxide 25 mmol/L (22-30); Chloride 104 mmol/L (98-107); Glucose 96 mg/dL (74-99); Potassium 4.6 mmol/L (3.5-5.1); Sodium 139 mmol/L (137-145); Total Bilirubin 0.6 mg/dL (0.2-1.3); Total Protein 6.1 g/dL (6.3-8.2)
--- NOTE | 2017-10-19 12:14 | P.GSHP ---
History of Present Illness H&P Date: 10/19/17 Chief Complaint: Partial small bowel obstruction This is a 62-year-old male well-known to myself. Patient has complaints of some epi-gastric abdominal pain and nausea. He presented to the emergency room yesterday. His x-rays were consistent with a partial small bowel charge. Patient has had multiple partial small bowel obstruction the past. These usually resolve with nasogastric tube decompression and bowel rest. Patient denies any significant nausea this morning. Past Medical History Past Medical History: Cancer, Deep Vein Thrombosis (DVT), GERD/Reflux, Hyperlipidemia, Pneumonia Additional Past Medical History / Comment(s): SBOs, L lower leg DVT, blood clot behind R eye, basal skin cancer with removals, pneumonia with SIRS, sinus problems, low back pain, L foot plantar fascitis, urine flow issues at times History of Any Multi-Drug Resistant Organisms: C-DIFF Date of last positivie culture/infection: 2009 MDRO Source:: stool Past Surgical History: Adenoidectomy, Bowel Resection, Cholecystectomy, Hernia Repair, Tonsillectomy Additional Past Surgical History / Comment(s): Exploratory lap with lysis of adhesions, small bowel decompression, yamileth fundiplication, EGD, colonoscopies/ benign polypectomies, T&A twice, skin cancer removals, Past Anesthesia/Blood Transfusion Reactions: No Reported Reaction Past Psychological History: No Psychological Hx Reported Additional Psychological History / Comment(s): PT LIVES WITH HIS GILBERTO, 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 Smoking Status: Never smoker Past Alcohol Use History: None Reported Additional Past Alcohol Use History / Comment(s): Patient is a lifelong nonsmoker. He does have medical marijuana but states he hasn't smoked marijuana in a very long time (over a year). He denies any street drug use. He denies any alcohol use. He is currently living at home with his . 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 He has been in the [place] and is unknown if he has asbestos EXPOSURE. . No recent travel. Past Drug Use History: None Reported Additional Drug Use History / Comment(s): Patient hasn't smoke in a while - Past Family History Mother Family Medical History: Cancer, Diabetes Mellitus Additional Family Medical History / Comment(s): Emphysema, heart problems, COLON CANCER. Father Additional Family Medical History / Comment(s): COLON CA LIVER CA,MULTIPLE MYELOMA, bone cancer Medications and Allergies Home Medications Medication Instructions Recorded Confirmed Type Ascorbic Acid [Vitamin C] 1,000 mg PO QID 04/04/15 10/18/17 History Calcium Carbonate/Vitamin D3 2 tab PO BID 04/04/15 10/18/17 History [Calcium 600-Vit D3 400 Tablet] Multivitamins, Thera [Multivitamin 2 tab PO HS 04/04/15 10/18/17 History (formulary)] Tamsulosin HCl 0.4 mg PO HS 04/20/15 10/18/17 History Docusate [Colace] 100 mg PO HS 07/05/15 10/18/17 History Fish Oil/Dha/Epa [Fish Oil 1,200 1 cap PO BID 05/26/16 10/18/17 History mg Fish Oil] Folic Acid 0.8 mg PO HS 05/26/16 10/18/17 History Aspirin 325 mg PO HS 11/20/16 10/18/17 History Simvastatin [Zocor] 20 mg PO HS 11/20/16 10/18/17 History Hyoscyamine Sulfate [Levsin] 0.125 mg PO HS PRN 04/24/17 10/18/17 History Omeprazole 20 mg PO HS PRN 04/24/17 10/18/17 History Selenium 200 mcg PO HS 08/25/17 10/18/17 History Vardenafil HCl [Levitra] 20 mg PO DAILY PRN 10/18/17 10/18/17 History Allergies Allergy/AdvReac Type Severity Reaction Status Date / Time morphine Allergy Rash/Hives Verified 10/18/17 17:29 Penicillins Allergy Rash/Hives, Verified 10/18/17 15:03 WHEEZING Surgical - Exam Vital Signs Temp Pulse Resp BP Pulse Ox 98.6 F 77 18 152/92 96 10/18/17 15:03 10/18/17 15:03 10/18/17 15:03 10/18/17 15:03 10/18/17 15:03 - General well developed, no distress - Eyes PERRL - ENT normal pinna - Neck no masses - Respiratory normal expansion - Cardiovascular Rhythm: regular - Abdomen Mild distention. There is some mild epigastric pain. Abdomen: soft, non tender Results - Labs 10/19/17 06:52 18 06:52 Abnormal Lab Results - Last 24 Hours (Table) 10/18/17 10/19/17 Range/Units 15:40 06:52 Glucose 101 H (74-99) mg/dL Total Protein 6.1 L (6.3-8.2) g/dL Lipase <10 L (23-300) U/L Diabetes panel 10/18/17 10/19/17 Range/Units 15:40 06:52 Sodium 140 139 (137-145) mmol/L Potassium 4.9 4.6 (3.5-5.1) mmol/L Chloride 101 104 (98-107) mmol/L Carbon Dioxide 28 25 (22-30) mmol/L BUN 14 16 (9-20) mg/dL Creatinine 0.75 0.90 (0.66-1.25) mg/dL Glucose 101 H 96 (74-99) mg/dL Calcium 10.0 9.0 (8.4-10.2) mg/dL AST 45 33 (17-59) U/L ALT 45 49 (21-72) U/L Alkaline Phosphatase 61 57 (38-126) U/L Total Protein 7.4 6.1 L (6.3-8.2) g/dL Albumin 4.6 3.7 (3.5-5.0) g/dL Calcium panel 10/18/17 10/19/17 Range/Units 15:40 06:52 Calcium 10.0 9.0 (8.4-10.2) mg/dL Albumin 4.6 3.7 (3.5-5.0) g/dL Pituitary panel 10/18/17 10/19/17 Range/Units 15:40 06:52 Sodium 140 139 (137-145) mmol/L Potassium 4.9 4.6 (3.5-5.1) mmol/L Chloride 101 104 (98-107) mmol/L Carbon Dioxide 28 25 (22-30) mmol/L BUN 14 16 (9-20) mg/dL Creatinine 0.75 0.90 (0.66-1.25) mg/dL Glucose 101 H 96 (74-99) mg/dL Calcium 10.0 9.0 (8.4-10.2) mg/dL Adrenal panel 06/16/18 06/17/18 Range/Units 15:40 06:52 Sodium 140 139 (137-145) mmol/L Potassium 4.9 4.6 (3.5-5.1) mmol/L Chloride 101 104 (98-107) mmol/L Carbon Dioxide 28 25 (22-30) mmol/L BUN 14 16 (9-20) mg/dL Creatinine 0.75 0.90 (0.66-1.25) mg/dL Glucose 101 H 96 (74-99) mg/dL Calcium 10.0 9.0 (8.4-10.2) mg/dL Total Bilirubin 0.6 0.6 (0.2-1.3) mg/dL AST 45 33 (17-59) U/L ALT 45 49 (21-72) U/L Alkaline Phosphatase 61 57 (38-126) U/L Total Protein 7.4 6.1 L (6.3-8.2) g/dL Albumin 4.6 3.7 (3.5-5.0) g/dL Assessment and Plan Assessment: Chronic intermittent partial small bowel charge. Patient will undergo computed tomography scan of the abdomen and pelvis with oral contrast today.
[2017-10-19] MEDS: IOPAMIDOL-300 CONTRAST 30 ML VIAL (ORAL USE) PO PRN ×2 (12:51→13:50)
--- NOTE | 2017-10-19 13:54 | P.HPIM ---
History of Present Illness H&P Date: 10/19/17 Chief Complaint: abdominal pain Saw De Anda is a 62-year-old male patient of Dr. jackson, who presented to [facility] emergency room with a chief complaint of abdominal pain, patient states that his symptoms started yesterday, he denies any nausea or vomiting no fever or chills, last bowel movement was yesterday, x-ray revealed evidence of small bowel obstruction, patient was admitted to surgical floor under Dr. Fu service, medical consultation was requested for management while hospitalized. Patient had multiple previous episodes of small bowel obstruction in the past, most episode resolved with nasogastric tube decompression and bowel rest, his last admission was in August 2017, patient had previous history of bowel resection and exploratory laparotomy with lysis of adhesion in the past. Past Medical History Past Medical History: Cancer, Deep Vein Thrombosis (DVT), GERD/Reflux, Hyperlipidemia, Pneumonia Additional Past Medical History / Comment(s): SBOs, L lower leg DVT, blood clot behind R eye, basal skin cancer with removals, pneumonia with SIRS, sinus problems, low back pain, L foot plantar fascitis, urine flow issues at times History of Any Multi-Drug Resistant Organisms: C-DIFF Date of last positivie culture/infection: 2009 MDRO Source:: stool Past Surgical History: Adenoidectomy, Bowel Resection, Cholecystectomy, Hernia Repair, Tonsillectomy Additional Past Surgical History / Comment(s): Exploratory lap with lysis of adhesions, small bowel decompression, yamileth fundiplication, EGD, colonoscopies/ benign polypectomies, T&A twice, skin cancer removals, Past Anesthesia/Blood Transfusion Reactions: No Reported Reaction Past Psychological History: No Psychological Hx Reported Additional Psychological History / Comment(s): PT LIVES WITH HIS GILBERTO, 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 Smoking Status: Never smoker Past Alcohol Use History: None Reported Additional Past Alcohol Use History / Comment(s): Patient is a lifelong nonsmoker. He does have medical marijuana but states he hasn't smoked marijuana in a very long time (over a year). He denies any street drug use. He denies any alcohol use. He is currently living at home with his . 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 He has been in the [place] and is unknown if he has asbestos EXPOSURE. . No recent travel. Past Drug Use History: None Reported Additional Drug Use History / Comment(s): Patient hasn't smoke in a while - Past Family History Mother Family Medical History: Cancer, Diabetes Mellitus Additional Family Medical History / Comment(s): Emphysema, heart problems, COLON CANCER. Father Additional Family Medical History / Comment(s): COLON CA LIVER CA,MULTIPLE MYELOMA, bone cancer Medications and Allergies Home Medications Medication Instructions Recorded Confirmed Type Ascorbic Acid [Vitamin C] 1,000 mg PO QID 04/04/15 10/18/17 History Calcium Carbonate/Vitamin D3 2 tab PO BID 04/04/15 10/18/17 History [Calcium 600-Vit D3 400 Tablet] Multivitamins, Thera [Multivitamin 2 tab PO HS 04/04/15 10/18/17 History (formulary)] Tamsulosin HCl 0.4 mg PO HS 04/20/15 10/18/17 History Docusate [Colace] 100 mg PO HS 07/05/15 10/18/17 History Fish Oil/Dha/Epa [Fish Oil 1,200 1 cap PO BID 05/26/16 10/18/17 History mg Fish Oil] Folic Acid 0.8 mg PO HS 05/26/16 10/18/17 History Aspirin 325 mg PO HS 11/20/16 10/18/17 History Simvastatin [Zocor] 20 mg PO HS 11/20/16 10/18/17 History Hyoscyamine Sulfate [Levsin] 0.125 mg PO HS PRN 04/24/17 10/18/17 History Omeprazole 20 mg PO HS PRN 04/24/17 10/18/17 History Selenium 200 mcg PO HS 08/25/17 10/18/17 History Vardenafil HCl [Levitra] 20 mg PO DAILY PRN 10/18/17 10/18/17 History Allergies Allergy/AdvReac Type Severity Reaction Status Date / Time morphine Allergy Rash/Hives Verified 10/18/17 17:29 Penicillins Allergy Rash/Hives, Verified 10/18/17 15:03 WHEEZING Physical Exam Vitals: Vital Signs Temp Pulse Pulse Resp BP BP Pulse Ox 10/19/17 07:19 99.5 F 94 16 103/67 93 L 10/19/17 01:36 98.9 F 85 17 102/58 90 L 10/19/17 00:00 85 17 10/18/17 20:55 74 16 10/18/17 19:47 98.7 F 74 16 115/72 95 10/18/17 17:54 98.6 F 72 16 132/73 98 10/18/17 17:27 97.4 F L 75 18 127/74 95 10/18/17 15:55 71 18 131/76 95 10/18/17 15:03 98.6 F 77 18 152/92 96 Intake and Output 10/18/17 10/19/17 10/19/17 22:59 06:59 14:59 Intake Total 800 800 Balance 800 800 Intake: Intake, IV Titration 800 800 Amount Sodium Chloride 0.9% 1, 800 800 000 ml @ 100 mls/hr IV . Q10H ONE Rx#:[id number] Other: Voiding Method Toilet Toilet # Voids 2 3 # Bowel Movements 3 Weight 111.13 kg In general patient is alert and oriented 3 in no apparent distress HEENT head normocephalic and atraumatic Neck is supple no JVD no goiter no lymphadenopathy Chest exam reveals a few scattered crackles no wheezing Cardiac exam reveals regular heart sounds no murmurs Abdomen is soft with mild diffuse tenderness no organomegaly Extremity exam reveals no edema no cyanosis or clubbing Neurological examination reveals no gross focal deficits Results CBC & Chem 7: 10/19/17 06:52 10/19/17 06:52 Labs: Abnormal Lab Results - Last 24 Hours (Table) 10/18/17 10/19/17 Range/Units 15:40 06:52 Glucose 101 H (74-99) mg/dL Total Protein 6.1 L (6.3-8.2) g/dL Lipase <10 L (23-300) U/L Thrombosis Risk Factor Assmnt - Choose All That Apply Each Factor Represents 1 point: Obesity (BMI >25) Each Risk Factor Represents 2 Points: Age 61-74 years Each Risk Factor Represents 3 Points: History of DVT/PE Thrombosis Risk Factor Assessment Total Risk Factor Score: 6 Thrombosis Risk Factor Assessment Level: High Risk Assessment and Plan Plan: #1 abdominal pain with evidence of small bowel obstruction computed tomography scan of the abdomen and pelvis ordered awaiting test this afternoon, surgical service is following, continue nothing by mouth, bowel rest and IV fluid. #2 previous history of hyperlipidemia #3 previous history of benign prostatic hypertrophy #4 previous history of plantar fasciitis #5 multiple abdominal surgeries in the past, including cholecystectomy, exploratory laparotomy with lysis of adhesion, Niesen fundoplication #6 previous history of DVT will use SCD stockings for DVT prophylaxis, will also use Lovenox as long as there is no surgical intervention planned. Medication and labs were reviewed will follow closely please see orders
--- NOTE | 2017-10-19 15:03 | CT ---
EXAMINATION TYPE: CT abdomen pelvis w con DATE OF EXAM: 10/19/2017 COMPARISON: 08/25/2017 HISTORY: Right sided abdominal pain CT DLP: 2314.7 mGycm Automated exposure control for dose reduction was used. TECHNIQUE: Helical acquisition of images was performed from the lung bases through the pelvis. CONTRAST: Performed with Oral Contrast and with IV Contrast, patient injected with 100 mL of Isovue 300. FINDINGS: Lung bases are clear of consolidation. There is small hiatal hernia. There is no pleural effusion. Th ere is no pericardial effusion. Liver spleen pancreas appear normal. Bile ducts are not dilated. Gallbladder is absent. There is no adrenal mass. Kidneys show satisfactory contrast opacification. There is no hydronephrosi s. There are bilateral renal cortical cysts that measure up to 2.5 cm. There is no evidence of a luke d renal mass. Ureters are not dilated. There is no retroperitoneal adenopathy. Abdominal aorta is ath eromatous. Bladder distends smoothly. I see no pelvic mass. There are sigmoid diverticula. There is no evidence of diverticulitis. There are some distended loops of fluid-filled small bowel in the right abdomen. T hese measure up to 3.2 cm. There is small bowel wall thickening involving the mid jejunum. I do not s ee evidence of a mechanical bowel obstruction. Terminal ileum is not dilated. IMPRESSION: THERE IS SOME DILATED LOOPS OF DISTAL ILEUM. THERE IS MID JEJUNAL WALL THICKENING. SMALL BOWEL IS LES S DILATED THAN OLD EXAM OF 08/25/2017. I DO NOT SEE A TRANSITION POINT. THIS PROBABLY RELATES TO ILEUS AND INFLAMMATORY PROCESS. SIGMOID DIVERTICULOSIS WITHOUT DIVERTICULITIS. SMALL RENAL CORTICAL CYSTS.
[2017-10-19] MEDS: PANTOPRAZOLE 40 MG/10 ML VIAL IVP SCH (16:37)
[2017-10-19] MEDS: ENOXAPARIN 40 MG/0.4 ML SYRINGE SQ SCH (16:37)
[2017-10-20] MEDS: HYDROmorphone 0.5 MG/0.5 ML SYRINGE IVP PRN ×3 (00:50→09:27)
[2017-10-20] MEDS: ENOXAPARIN 40 MG/0.4 ML SYRINGE SQ SCH (07:46)
[2017-10-20] MEDS: PANTOPRAZOLE 40 MG/10 ML VIAL IVP SCH (07:46)
[2017-10-20] MEDS ORDERED: NON-FORMULARY DRUG (Omeprazole [Omeprazole] 20 MG) PO PRN (08:35)
--- NOTE | 2017-10-20 09:54 | P.PN ---
<Shweta Shnae M - Last Filed: 10/20/17 09:46> Subjective Progress Note Date: 10/20/17 62-year-old male seen and examined sitting up in bed states he had several bowel movements last night passing gas and tolerating a full liquid diet. Patient states he has been up ambulating in the [place]. Objective - Vital Signs Vital signs: Vital Signs Temp 98.4 F 10/20/17 08:09 Pulse 68 10/20/17 08:09 Resp 16 10/20/17 08:09 BP 107/68 10/20/17 08:09 Pulse Ox 95 10/20/17 08:09 Intake & Output 10/19/17 10/20/17 10/20/17 18:59 06:59 18:59 Intake Total 2009 325 Balance 2009 325 Intake: Intake, IV Titration 400 Amount Sodium Chloride 0.9% 1, 400 000 ml @ 100 mls/hr IV . Q10H ONE Rx#:[id number] Oral 1610 325 Other: Voiding Method Toilet Toilet # Voids 2 3 - Exam Physical exam 62-year-old male sitting up in bed appears in no acute distress Lungs adequate air movement bilaterally Heart S1-S2 audible regular Abdomen soft few hypoactive bowel tones states no nausea no vomiting tolerating clear liquid diet asking for diet to be advanced passing gas 3 bowel movements yesterday Extremities no edema - Labs CBC & Chem 7: 10/19/17 06:52 10/19/17 06:52 Assessment and Plan Assessment: Impression Present on admission nausea vomiting abdominal pain likely due to partial small bowel obstruction Computed tomography scan consistent with a partial small bowel obstruction History of reoccurring episodes of small bowel obstruction in the past History of chronic intermediate partial small bowel obstruction Plan Increase activity as tolerated Advance diet to full liquid Pain control Home meds as appropriate Prepped for probable discharge soon DVT and GI prophylaxis Dr. Lynn rounding on behalf of Dr. millan The above impression and plan of care have been discussed and directed by signing physician. Shweta Shane nurse practitioner acting as scribe for signing physician. <Trinh Lynn N - Last Filed: 10/20/17 21:33> Objective - Vital Signs Vital signs: Vital Signs Temp 97.5 F L 10/20/17 19:59 Pulse 77 10/20/17 19:59 Resp 15 10/20/17 19:59 BP 115/75 10/20/17 19:59 Pulse Ox 95 10/20/17 19:59 Intake & Output 10/20/17 10/20/17 10/21/17 06:59 18:59 06:59 Intake Total 2009 325 Balance 2009 325 Intake: Intake, IV Titration 400 Amount Sodium Chloride 0.9% 1, 400 000 ml @ 100 mls/hr IV . Q10H ONE Rx#:[id number] Oral 1610 325 Other: Voiding Method Toilet # Voids 3 1 - Labs CBC & Chem 7: 10/19/17 06:52 10/19/17 06:52
[2017-10-20] MEDS ORDERED: HYDROcodone/APAP 7.5-325MG 1 EACH TAB PO PRN (09:55)
--- NOTE | 2017-10-20 13:53 | P.PN ---
Subjective Progress Note Date: 10/20/17 Saw De Anda is a 62-year-old male patient of Dr. jackson, who presented to [facility] emergency room with a chief complaint of abdominal pain, patient states that his symptoms started yesterday, he denies any nausea or vomiting no fever or chills, last bowel movement was yesterday, x-ray revealed evidence of small bowel obstruction, patient was admitted to surgical floor under Dr. Fu service, medical consultation was requested for management while hospitalized. Patient had multiple previous episodes of small bowel obstruction in the past, most episode resolved with nasogastric tube decompression and bowel rest, his last admission was in August 2017, patient had previous history of bowel resection and exploratory laparotomy with lysis of adhesion in the past. 10/20/2017 Patient states that he is still having some abdominal pain. Does state that he had one bowel movement yesterday and is passing gas. Patient also states that he has been up walking the halls. Per sugical services, diet has been advanced to full liquid and probable discharge soon. Patient denies any chest pain or shortness of breath. Objective - Vital Signs Vital signs: Vital Signs Temp 98.4 F 10/20/17 08:09 Pulse 68 10/20/17 08:09 Resp 16 10/20/17 08:09 BP 107/68 10/20/17 08:09 Pulse Ox 95 10/20/17 08:09 Intake & Output 10/19/17 10/20/17 10/20/17 18:59 06:59 18:59 Intake Total 2009 325 Balance 2009 325 Intake: Intake, IV Titration 400 Amount Sodium Chloride 0.9% 1, 400 000 ml @ 100 mls/hr IV . Q10H ONE Rx#:[id number] Oral 1610 325 Other: Voiding Method Toilet Toilet # Voids 2 3 - Exam HEENT head normocephalic and atraumatic Neck is supple no JVD no goiter no lymphadenopathy Chest exam reveals a few scattered crackles no wheezing Cardiac exam reveals regular heart sounds no murmurs Abdomen is soft with mild diffuse tenderness no organomegaly Extremity exam reveals no edema no cyanosis or clubbing Neurological examination reveals no gross focal deficits. oriented 3 - Labs CBC & Chem 7: 10/19/17 06:52 10/19/17 06:52 Assessment and Plan Assessment: #1 abdominal pain with evidence of small bowel obstruction computed tomography scan of the abdomen and pelvis ordered awaiting test this afternoon, surgical service is following. Patient has been increased to full liquid diet. #2 previous history of hyperlipidemia #3 previous history of benign prostatic hypertrophy #4 previous history of plantar fasciitis #5 multiple abdominal surgeries in the past, including cholecystectomy, exploratory laparotomy with lysis of adhesion, Niesen fundoplication #6 previous history of DVT will use SCD stockings for DVT prophylaxis, will also use Lovenox as long as there is no surgical intervention planned. Per surgical services, prepped for probable discharge soon.
[2017-10-20] MEDS ORDERED: DOCUSATE 100 MG CAP PO SCH (21:00)
[2017-10-20] MEDS ORDERED: MULTIVITAMINS, THERA 1 EACH TAB PO SCH (21:00)
[2017-10-20] MEDS ORDERED: ATORVASTATIN 10 MG TAB PO SCH (21:00)
[2017-10-20] MEDS ORDERED: TAMSULOSIN 0.4 MG CAP.ER.24H PO SCH (21:00)
--- NOTE | 2017-10-20 22:58 | P.PN ---
Progress Note - Text Progress Note Date: 10/20/17 Resting comfortably. No issues at this time.
[2017-10-21 01:33] VITALS: RESP 16
[2017-10-21 07:09] VITALS: BP 114/74; PULSE 63; TEMP 98.3
[2017-10-21 07:24] LABS: HCT 40.1 % (39.0-53.0); HGB 13.8 gm/dL (13.0-17.5); MCH 31.9 pg (25.0-35.0); MCHC 34.5 g/dL (31.0-37.0); MCV 92.4 fL (80.0-100.0); Mean Platelet Volume 6.4; Platelet Count 210 k/uL (150-450); RBC 4.34 m/uL (4.30-5.90); RDW 13.6 % (11.5-15.5); WBC 4.8 k/uL (3.8-10.6)
[2017-10-21 07:35] LABS: ALT 46 U/L (21-72); AST 27 U/L (17-59); Albumin 3.6 g/dL (3.5-5.0); Alkaline Phosphatase 59 U/L (38-126); Anion Gap 9 mmol/L; Blood Urea Nitrogen 7 mg/dL (9-20); Calcium 8.6 mg/dL (8.4-10.2); Carbon Dioxide 26 mmol/L (22-30); Chloride 106 mmol/L (98-107); Glucose 101 mg/dL (74-99); Sodium 141 mmol/L (137-145); Total Bilirubin 0.4 mg/dL (0.2-1.3); Total Protein 6.1 g/dL (6.3-8.2)
[2017-10-21] MEDS: ENOXAPARIN 40 MG/0.4 ML SYRINGE SQ SCH (09:00)
--- NOTE | 2017-10-21 09:31 | P.DS ---
Providers Date of admission: 10/18/17 17:11 Expected date of discharge: 10/21/17 Attending physician: Dilan Millan Consults: 10/19/17 12:21 Consult Physician Routine Consulting Provider: Cesar Ferrera Consult Reason/Comments: Medical management Do you want consulting provider notified?: Yes Primary care physician: [facility] Course: 62-year-old male presented on the day of admission to the emergency room to be evaluated for chief complaint of midepigastric abdominal pain with nausea vomiting. Patient stated the pain was consistent with other prior episodes where he has been admitted with a partial small bowel obstruction. Patient does have a history of multiple admissions for partial balls up structure in the past. Patient was admitted to the services of the attending. A CAT scan of the abdomen pelvis was obtained. Showed dilated loops of distal ileum small bowel less dilated than prior exam no transition point is probably relates to an ileus and inflammatory process. Sigmoid diverticulosis without diverticulitis noted patient was placed on bowel rest IV hydration noted improvement in abdominal pain. Patient started having bowel movement day of discharge was able to tolerate a diet a full liquid was up ambulatory on the unit the white count 4.8 hemoglobin 13.8 liver enzymes were not elevated electrolytes within normal limits patient was anxious to be discharged home. Patient was felt to be medically stable Impression discharge diagnosis Present on admission nausea vomiting abdominal pain likely due to partial small bowel obstruction resolved Computed tomography scan consistent with a partial small bowel obstruction History of reoccurring episodes of small bowel obstruction in the past History of chronic intermediate partial small bowel obstruction Discharge summary dictated for Dr. Purnima mair on behalf of Dr. millan The above impression and plan of care have been discussed and directed by signing physician. Shweta Shane nurse practitioner acting as scribe for signing physician. Patient Condition at Discharge: Stable Plan - Discharge Summary Discharge Rx Participant: Yes New Discharge Prescriptions: Continue Multivitamins, Thera [Multivitamin (formulary)] 2 tab PO HS Calcium Carbonate/Vitamin D3 [Calcium 600-Vit D3 400 Tablet] 2 tab PO BID Ascorbic Acid [Vitamin C] 1,000 mg PO QID Tamsulosin HCl 0.4 mg PO HS Docusate [Colace] 100 mg PO HS Folic Acid 0.8 mg PO HS Fish Oil/Dha/Epa [Fish Oil 1,200 mg Fish Oil] 1 cap PO BID Simvastatin [Zocor] 20 mg PO HS Aspirin 325 mg PO HS Omeprazole 20 mg PO HS PRN PRN Reason: GERD Hyoscyamine Sulfate [Levsin] 0.125 mg PO HS PRN PRN Reason: CRAMPING Selenium 200 mcg PO HS Vardenafil HCl [Levitra] 20 mg PO DAILY PRN PRN Reason: ERECTILE DYSFUNCTION Discharge Medication List Ascorbic Acid [Vitamin C] 1,000 mg PO QID 04/04/15 [History] Calcium Carbonate/Vitamin D3 [Calcium 600-Vit D3 400 Tablet] 2 tab PO BID [History] Multivitamins, Thera [Multivitamin (formulary)] 2 tab PO HS 04/04/15 [History] Tamsulosin HCl 0.4 mg PO HS 04/20/15 [History] Docusate [Colace] 100 mg PO HS 07/05/15 [History] Fish Oil/Dha/Epa [Fish Oil 1,200 mg Fish Oil] 1 cap PO BID 05/26/16 [History] Folic Acid 0.8 mg PO HS 05/26/16 [History] Aspirin 325 mg PO HS 11/20/16 [History] Simvastatin [Zocor] 20 mg PO HS 11/20/16 [History] Hyoscyamine Sulfate [Levsin] 0.125 mg PO HS PRN 04/24/17 [History] Omeprazole 20 mg PO HS PRN 04/24/17 [History] Selenium 200 mcg PO HS 08/25/17 [History] Vardenafil HCl [Levitra] 20 mg PO DAILY PRN 10/18/17 [History] Follow up Appointment(s)/Referral(s): Lurdes Swanson MD [Primary Care Provider] - 10/23/17 8:30 am Dilan Millan MD [STAFF PHYSICIAN] - 10/28/17 3:30 pm Patient Instructions/Handouts: Bowel Obstruction (DC) Activity/Diet/Wound Care/Special Instructions: Advance diet slowly as tolerated May return to work on October 22 no restrictions Discharge Disposition: HOME SELF-CARE
--- NOTE | 2017-10-21 10:28 | P.PN ---
Subjective Progress Note Date: 10/21/17 Saw De Anda is a 62-year-old male patient of Dr. jackson, who presented to [facility] emergency room with a chief complaint of abdominal pain, patient states that his symptoms started yesterday, he denies any nausea or vomiting no fever or chills, last bowel movement was yesterday, x-ray revealed evidence of small bowel obstruction, patient was admitted to surgical floor under Dr. Fu service, medical consultation was requested for management while hospitalized. Patient had multiple previous episodes of small bowel obstruction in the past, most episode resolved with nasogastric tube decompression and bowel rest, his last admission was in August 2017, patient had previous history of bowel resection and exploratory laparotomy with lysis of adhesion in the past. 10/20/2017 Patient states that he is still having some abdominal pain. Does state that he had one bowel movement yesterday and is passing gas. Patient also states that he has been up walking the halls. Per sugical services, diet has been advanced to full liquid and probable discharge soon. Patient denies any chest pain or shortness of breath. 10/21/2017 patient is tolerating diet and having stools. Up and ambulating. Surgery has cleared him for discharge today. Medically patient is stable for discharge. Objective - Vital Signs Vital signs: Vital Signs Temp 98.3 F 10/21/17 07:08 Pulse 63 10/21/17 07:08 Resp 16 10/21/17 07:08 BP 114/74 10/21/17 07:08 Pulse Ox 94 L 10/21/17 07:08 Intake & Output 10/20/17 10/21/17 10/21/17 18:59 06:59 18:59 Intake Total 325 1620 325 Balance 325 1620 325 Intake: Oral 325 1620 325 Other: Voiding Method Toilet # Voids 1 2 # Bowel Movements 1 3 - Exam Head normocephalic Neck supple Lungs clear to auscultation bilaterally no wheezing or crackles Heart regular rate and rhythm S1-S2, no rub or gallop Abdomen is soft nontender nondistended positive bowel sounds no hepatosplenomegaly Extremities no edema Neuro alert and orientated to 3 - Labs CBC & Chem 7: 10/21/17 06:16 10/21/17 06:16 Labs: Abnormal Lab Results - Last 24 Hours (Table) 10/21/17 Range/Units 06:16 BUN 7 L (9-20) mg/dL Glucose 101 H (74-99) mg/dL Total Protein 6.1 L (6.3-8.2) g/dL Assessment and Plan Assessment: #1 abdominal pain with evidence of small bowel obstruction computed tomography scan of the abdomen and pelvis ordered awaiting test this afternoon, surgical service is following. Patient has been increased to full liquid diet. Patient is tolerating diet and having bowel movements #2 previous history of hyperlipidemia #3 previous history of benign prostatic hypertrophy #4 previous history of plantar fasciitis #5 multiple abdominal surgeries in the past, including cholecystectomy, exploratory laparotomy with lysis of adhesion, Niesen fundoplication #6 previous history of DVT will use SCD stockings for DVT prophylaxis, will also use Lovenox as long as there is no surgical intervention planned. Patient is medically stable for discharge. Patient to follow-up with his PCP in the next 2 days I performed an examination of the patient and discussed their management with the physician Magnetic Prospector. I have reviewed the Physician Magnetic Prospector's notes and agree with the documented findings and plan of care
== END 2017-10-21 10:15 | disposition home or self-care (01) | DRG 390 ==
LOC: EC 14:53 → 3SUR 17:11
PROVIDERS: ADMIT Surgery; ATTEND Surgery
DX: K56.600 Partial intestinal obstruction, unspecified as to cause (principal); E78.5 Hyperlipidemia, unspecified; K21.9 Gastro-esophageal reflux disease without esophagitis; K57.30 Diverticulosis of large intestine without perforation or abscess without bleeding; N40.0 Benign prostatic hyperplasia without lower urinary tract symptoms; Z79.82 Long term (current) use of aspirin; Z80.0 Family history of malignant neoplasm of digestive organs; Z80.7 Family history of other malignant neoplasms of lymphoid, hematopoietic and related tissues; Z80.8 Family history of malignant neoplasm of other organs or systems; Z82.5 Family history of asthma and other chronic lower respiratory diseases; Z83.3 Family history of diabetes mellitus; Z85.828 Personal history of other malignant neoplasm of skin; Z90.49 Acquired absence of other specified parts of digestive tract; Z86.010 Personal history of colon polyps; Z87.01 Personal history of pneumonia (recurrent); Z86.718 Personal history of other venous thrombosis and embolism; Z79.899 Other long term (current) drug therapy
CPT/HCPCS: 36415; 74021; 74177; 80053; 81003; 82150; 83690; 85025; 85027; 85610; 85730; 96361; 96374; 96375; 96376; 99285

== ENCOUNTER 2017-10-29 17:06 | Inpatient (IN) | payer OTHER ==
[2017-10-29] MEDS ORDERED: KETOROLAC 30 MG/ML 1 ML VIAL IVP STA (18:46)
--- NOTE | 2017-10-29 18:49 | ED ---
Abdominal Pain HPI - General Source: patient, RN notes reviewed Mode of arrival: ambulatory Limitations: no limitations <Albino Rojas - Last Filed: 10/29/17 19:32> <Luis Valladares - Last Filed: 10/29/17 20:27> - General Chief Complaint: Abdominal Pain Stated Complaint: ABDOMINAL PAIN Time Seen by Provider: 10/29/17 18:27 - History of Present Illness Initial Comments: 62-year-old male presents emergency Department chief complaint abdominal pain, abdominal distention. Patient states pain started today. He's had recurrent obstruction states that he recently was discharged from here for similar symptoms. Patient states that his surgeon is Dr. Fu. He has had a prior bowel resection, knee some complication and cholecystectomy. Patient reports no nausea vomiting states that he normally does not have any of these symptoms with his obstruction. He states usually just has pain and distention. Patient states that he is passing gas earlier today. Denies any dysuria no hematuria. ( Albino Rojas) - Related Data Home Medications Medication Instructions Recorded Confirmed Ascorbic Acid [Vitamin C] 1,000 mg PO QID 04/04/15 10/29/17 Calcium Carbonate/Vitamin D3 2 tab PO BID 04/04/15 10/29/17 [Calcium 600-Vit D3 400 Tablet] Multivitamins, Thera [Multivitamin 2 tab PO HS 04/04/15 10/29/17 (formulary)] Docusate [Colace] 100 mg PO HS 07/05/15 10/29/17 Fish Oil/Dha/Epa [Fish Oil 1,200 1 cap PO BID 05/26/16 10/29/17 mg Fish Oil] Folic Acid 0.8 mg PO HS 05/26/16 10/29/17 Hyoscyamine Sulfate [Levsin] 0.125 mg PO HS PRN 04/24/17 10/29/17 Selenium 200 mcg PO HS 08/25/17 10/29/17 Vardenafil HCl [Levitra] 20 mg PO DAILY PRN 10/18/17 10/29/17 Albuterol Inhaler [Ventolin Hfa 1 - 2 puff INHALATION RT-Q6H PRN 10/29/17 Inhaler] Azithromycin [Zithromax Z-pack] See Taper PO DAILY 10/29/17 10/29/17 methylPREDNISolone [Medrol Dose See Taper PO DIRECTED 10/29/17 10/29/17 Pack] Allergies Allergy/AdvReac Type Severity Reaction Status Date / Time morphine Allergy Rash/Hives Verified 10/29/17 19:01 Penicillins Allergy Rash/Hives, Verified 10/29/17 19:01 WHEEZING Review of Systems ROS Other: All systems not noted in ROS Statement are negative. <Albino Rojas - Last Filed: 10/29/17 19:32> ROS Other: All systems not noted in ROS Statement are negative. <Luis Valladares - Last Filed: 10/29/17 20:27> ROS Statement: Those systems with pertinent positive or pertinent negative responses have been documented in the HPI. Past Medical History Past Medical History: Cancer, Deep Vein Thrombosis (DVT), GERD/Reflux, Hyperlipidemia, Pneumonia Additional Past Medical History / Comment(s): SBOs, L lower leg DVT, blood clot behind R eye, basal skin cancer with removals, pneumonia with SIRS, sinus problems, low back pain, L foot plantar fascitis, urine flow issues at times History of Any Multi-Drug Resistant Organisms: C-DIFF Date of last positivie culture/infection: 2009 MDRO Source:: stool Past Surgical History: Adenoidectomy, Bowel Resection, Cholecystectomy, Hernia Repair, Tonsillectomy Additional Past Surgical History / Comment(s): Exploratory lap with lysis of adhesions, small bowel decompression, yamileth fundiplication, EGD, colonoscopies/ benign polypectomies, T&A twice, skin cancer removals, Past Anesthesia/Blood Transfusion Reactions: No Reported Reaction Past Psychological History: No Psychological Hx Reported Smoking Status: Never smoker Past Alcohol Use History: None Reported Past Drug Use History: None Reported - Past Family History Mother Family Medical History: Cancer, Diabetes Mellitus Additional Family Medical History / Comment(s): Emphysema, heart problems, COLON CANCER. Father Additional Family Medical History / Comment(s): COLON CA LIVER CA,MULTIPLE MYELOMA, bone cancer <Albino Rojas - Last Filed: 10/29/17 19:32> General Exam Limitations: no limitations General appearance: alert, in no apparent distress Head exam: Present: atraumatic, normocephalic, normal inspection Respiratory exam: Present: normal lung sounds bilaterally. Absent: respiratory distress, wheezes, rales, rhonchi, stridor Cardiovascular Exam: Present: regular rate, normal rhythm, normal heart sounds. Absent: systolic murmur, diastolic murmur, rubs, gallop, clicks GI/Abdominal exam: Present: soft, distended (Mild), tenderness (Moderate mid abdominal tenderness), normal bowel sounds. Absent: guarding, rebound, rigid Back exam: Absent: CVA tenderness (R), CVA tenderness (L) Skin exam: Present: warm, dry, intact, normal color. Absent: rash <Albino Rojas - Last Filed: 10/29/17 19:32> Course <Albino Rojas - Last Filed: 10/29/17 19:32> <Luis Valladares - Last Filed: 10/29/17 20:27> Vital Signs 10/29/17 17:38 Temperature 98.4 F Pulse Rate 76 Respiratory 18 Rate Blood Pressure 109/67 O2 Sat by Pulse 96 Oximetry - Reevaluation(s) Reevaluation #1: 10/29/17 20:26 PA supervision: I did personally do a [id number] evaluation the patient and did discuss findings with the patient and his . Patient does demonstrate extension of the abdomen with increased tympany some hyperactive bowel sounds noted. The exam is consistent with a small bowel obstruction patient does have prior histories of this including a recent one that did resolve after fluids with no nasogastric suction. Patient will be admitted with consultation by Dr. Fu. I did discuss case with . I do agree with the assessment and plan. (Luis Valladares) Medical Decision Making - Lab Data Result diagrams: 10/29/17 19:09 <Albino Rojas - Last Filed: 10/29/17 19:32> - Lab Data Result diagrams: 10/29/17 19:09 10/29/17 19:09 <Luis Valladares - Last Filed: 10/29/17 20:27> - Lab Data Lab Results 10/29/17 10/29/17 10/29/17 Range/Units 19:09 19:09 19:14 WBC 11.3 H (3.8-10.6) k/uL RBC 4.99 (4.30-5.90) m/uL Hgb 15.5 (13.0-17.5) gm/dL Hct 45.9 (39.0-53.0) % MCV 91.9 (80.0-100.0) fL MCH 31.0 (25.0-35.0) pg MCHC 33.7 (31.0-37.0) g/dL RDW 13.6 (11.5-15.5) % Plt Count 292 (150-450) k/uL Neutrophils % 72 % Lymphocytes % 17 % Monocytes % 6 % Eosinophils % 1 % Basophils % 1 % Neutrophils # 8.2 H (1.3-7.7) k/uL Lymphocytes # 2.0 (1.0-4.8) k/uL Monocytes # 0.7 (0-1.0) k/uL Eosinophils # 0.2 (0-0.7) k/uL Basophils # 0.1 (0-0.2) k/uL Sodium 140 (137-145) mmol/L Potassium 4.5 (3.5-5.1) mmol/L Chloride 100 (98-107) mmol/L Carbon Dioxide 27 (22-30) mmol/L Anion Gap 13 mmol/L BUN 18 (9-20) mg/dL Creatinine 0.72 (0.66-1.25) mg/dL Est GFR (CKD-EPI)AfAm >90 (>60 ml/min/1.73 sqM) Est GFR (CKD-EPI)NonAf >90 (>60 ml/min/1.73 sqM) Glucose 102 H (74-99) mg/dL Calcium 9.7 (8.4-10.2) mg/dL Total Bilirubin 0.5 (0.2-1.3) mg/dL AST 31 (17-59) U/L ALT 36 (21-72) U/L Alkaline Phosphatase 63 (38-126) U/L Total Protein 7.3 (6.3-8.2) g/dL Albumin 4.5 (3.5-5.0) g/dL Amylase 48 (30-110) U/L Lipase 13 L (23-300) U/L Urine Color Yellow Urine Appearance Clear (Clear) Urine pH 6.0 (5.0-8.0) Ur Specific [place] 1.012 (1.001-1.035) Urine Protein Negative (Negative) Urine Glucose (UA) Negative (Negative) Urine Ketones Negative (Negative) Urine Blood Negative (Negative) Urine Nitrite Negative (Negative) Urine Bilirubin Negative (Negative) Urine Urobilinogen <2.0 (<2.0) mg/dL Ur Leukocyte Esterase Negative (Negative) Disposition <Albino Rojas - Last Filed: 10/29/17 19:32> <Luis Valladares - Last Filed: 10/29/17 20:27> Clinical Impression: Small bowel obstruction, Abdominal pain Disposition: ADMITTED IP TO THIS HOSP Referrals: Lurdes Swanson MD [Primary Care Provider] - 1-2 days
[2017-10-29 19:20] LABS: Basophils # (A) 0.1 k/uL (0-0.2); Basophils % (A) 1 %; Eosinophils # (A) 0.2 k/uL (0-0.7); Eosinophils % (A) 1 %; HCT 45.9 % (39.0-53.0); HGB 15.5 gm/dL (13.0-17.5); Lymphocytes % (A) 17 %; MCHC 33.7 g/dL (31.0-37.0); MCV 91.9 fL (80.0-100.0); Mean Platelet Volume 6.7; Monocytes # (A) 0.7 k/uL (0-1.0); Monocytes % (A) 6 %; Neutrophils # (A) 8.2 k/uL (1.3-7.7); Neutrophils % (A) 72 %; Platelet Count 292 k/uL (150-450); RBC 4.99 m/uL (4.30-5.90); RDW 13.6 % (11.5-15.5); WBC 11.3 k/uL (3.8-10.6)
[2017-10-29 19:23] LABS: Appearance,Urine Clear (Clear); Bilirubin,Urine Negative (Negative); Blood,Urine Negative (Negative); Color,Urine Yellow; Glucose,Urine (UA) Negative (Negative); Ketones,Urine Negative (Negative); Leukocyte Esterase,Urine Negative (Negative); Nitrite,Urine Negative (Negative); Protein,Urine Negative (Negative); Specific Gravity,Urine 1.012 (1.001-1.035); Urobilinogen,Urine <2.0 mg/dL (<2.0)
[2017-10-29] MEDS ORDERED: HYDROmorphone 0.5 MG/0.5 ML SYRINGE IVP PRN (19:33)
[2017-10-29] MEDS ORDERED: ONDANSETRON 4 MG/2 ML VIAL IVP PRN (19:33)
[2017-10-29] MEDS ORDERED: NALOXONE 0.4 MG/ML 1 ML VIAL IV PRN (19:33)
[2017-10-29 19:36] LABS: ALT 36 U/L (21-72); AST 31 U/L (17-59); Albumin 4.5 g/dL (3.5-5.0); Alkaline Phosphatase 63 U/L (38-126); Amylase 48 U/L (30-110); Anion Gap 13 mmol/L; Blood Urea Nitrogen 18 mg/dL (9-20); Calcium 9.7 mg/dL (8.4-10.2); Carbon Dioxide 27 mmol/L (22-30); Chloride 100 mmol/L (98-107); Glucose 102 mg/dL (74-99); Lipase 13 U/L (23-300); Potassium 4.5 mmol/L (3.5-5.1); Sodium 140 mmol/L (137-145); Total Bilirubin 0.5 mg/dL (0.2-1.3); Total Protein 7.3 g/dL (6.3-8.2)
[2017-10-29] MEDS ORDERED: HYDROmorphone 0.5 MG/0.5 ML SYRINGE IVP STA (19:47)
--- NOTE | 2017-10-29 20:00 | XR ---
EXAMINATION TYPE: XR KUB 2 views DATE OF EXAM: 10/29/2017 COMPARISON: 04/24/2017 HISTORY: Right-sided abdominal pain TECHNIQUE: 2 upright views FINDINGS: The visualized lung bases and pleural spaces are negative. There is no pneumoperitoneum. No evident pneumatosis. However, there are multiple dilated loops of ga s-distended small bowel throughout the bilateral upper quadrants with gas fluid levels noted. The cec um and ascending colon and sigmoid show stool. No acute skeletal or soft tissue findings are evident. IMPRESSION: Small bowel obstruction radiographic pattern.
[2017-10-29] MEDS: SODIUM CHLORIDE 0.9% 1,000 ML IV SCH (21:52)
[2017-10-29] MEDS: HYDROmorphone 0.5 MG/0.5 ML SYRINGE IVP PRN (22:08)
[2017-10-30] MEDS: HYDROmorphone 0.5 MG/0.5 ML SYRINGE IVP PRN ×7 (00:31→17:31)
[2017-10-30] MEDS: SODIUM CHLORIDE 0.9% 1,000 ML IV SCH ×2 (08:05→23:39)
[2017-10-30] MEDS: IOPAMIDOL-300 CONTRAST 30 ML VIAL (ORAL USE) PO PRN ×2 (08:44→10:02)
--- NOTE | 2017-10-30 09:24 | P.GSCN ---
History of Present Illness Consult date: 10/30/17 History of present illness: 62-year-old male presented on the day of admission to the emergency room for chief complaint of developing abdominal pain with bloating and distention onset 24 hours prior. Patient states on Friday this week he did go to [facility] emergency room to be treated for bronchitis was given steroids and an oral antibiotic and sent home. He did not have abdominal pain the pain started the next day. Given the above clinical presentation the attending has requested a surgical eval patient is a history of having all prior admissions for reoccurring abdominal pain secondary to small bowel obstruction. Patient was just discharged October 21 at that time was treated for partial small bowel obstruction treated with bowel rest no indication at that time for nasogastric tube patient reports abdominal discomfort similar to prior episodes Abdomen is soft not distended does report diffuse tenderness across the abdominal wall "only thing that seems to help his the IV Dilaudid relaxes abdominal muscles less pain KUB done in the emergency room reviewing the report indicates small bowel obstruction the cecum, ascending colon and sigmoid show stool does have a history of chronic intermediate partial small bowel obstructions. Past surgical history exploratory laparotomy lysis of adhesions, small bowel decompression, bowel resection, cholecystectomy, hernia repair, niacin fundoplication EGD Review of Systems Essentially unremarkable except as mentioned in the present illness Past Medical History Past Medical History: Cancer, Deep Vein Thrombosis (DVT), GERD/Reflux, Hyperlipidemia, Pneumonia Additional Past Medical History / Comment(s): SBOs, L lower leg DVT, blood clot behind R eye, basal skin cancer with removals, pneumonia with SIRS, sinus problems, low back pain, L foot plantar fascitis, urine flow issues at times, past hiatal hernia-(sx) History of Any Multi-Drug Resistant Organisms: C-DIFF Year Discovered:: 2009 MDRO Source:: stool Past Surgical History: Adenoidectomy, Bowel Resection, Cholecystectomy, Hernia Repair, Tonsillectomy Additional Past Surgical History / Comment(s): Exploratory lap with lysis of adhesions, small bowel decompression, yamileth fundiplication, EGD, colonoscopies/ benign polypectomies, T&A twice, skin cancer removals, Past Anesthesia/Blood Transfusion Reactions: No Reported Reaction Smoking Status: Never smoker - Past Family History Mother Family Medical History: Cancer, Diabetes Mellitus Additional Family Medical History / Comment(s): Emphysema, heart problems, COLON CANCER. Father Additional Family Medical History / Comment(s): COLON CA LIVER CA,MULTIPLE MYELOMA, bone cancer Medications and Allergies Home Medications Medication Instructions Recorded Confirmed Type Ascorbic Acid [Vitamin C] 1,000 mg PO QID 04/04/15 10/29/17 History Calcium Carbonate/Vitamin D3 2 tab PO BID 04/04/15 10/29/17 History [Calcium 600-Vit D3 400 Tablet] Multivitamins, Thera [Multivitamin 2 tab PO HS 04/04/15 10/29/17 History (formulary)] Docusate [Colace] 100 mg PO HS 07/05/15 10/29/17 History Fish Oil/Dha/Epa [Fish Oil 1,200 1 cap PO BID 05/26/16 10/29/17 History mg Fish Oil] Folic Acid 0.8 mg PO HS 05/26/16 10/29/17 History Hyoscyamine Sulfate [Levsin] 0.125 mg PO HS PRN 04/24/17 10/29/17 History Selenium 200 mcg PO HS 08/25/17 10/29/17 History Vardenafil HCl [Levitra] 20 mg PO DAILY PRN 10/18/17 10/29/17 History Albuterol Inhaler [Ventolin Hfa 1 - 2 puff INHALATION RT-Q6H PRN 10/29/17 History Inhaler] Azithromycin [Zithromax Z-pack] See Taper PO DAILY 10/29/17 10/29/17 History methylPREDNISolone [Medrol Dose See Taper PO DIRECTED 10/29/17 10/29/17 History Pack] Allergies Allergy/AdvReac Type Severity Reaction Status Date / Time morphine Allergy Rash/Hives Verified 10/29/17 19:01 Penicillins Allergy Rash/Hives, Verified 10/29/17 19:01 WHEEZING Surgical - Exam Vital Signs Temp Pulse Resp BP Pulse Ox 98.4 F 76 18 109/67 96 10/29/17 17:38 10/29/17 17:38 10/29/17 17:38 10/29/17 17:38 10/29/17 17:38 GENERAL APPEARANCE: 62-year-old male patient is alert, oriented, in no acute distress. Just received pain medication states decreases the abdominal discomfort VITAL SIGNS: Reviewed HEENT: Head is normocephalic and atraumatic. Pupils are equal and reactive. The nares are patent. Oropharynx is clear without lesions. NECK: Supple without lymphadenopathy. Traches midline. HEART: S1, S2. Regular rate and rhythm. Denying chest pain LUNGS: No crackles or wheezes are heard. On room air ABDOMEN: Soft, mild tenderness across the abdominal wall, nondistended few hypoactive bowel sounds. No peritoneal signs. No palpable organomegaly or masses. States had a bowel movement yesterday passing gas EXTREMITIES: Normal skin color and turgor. No edema NEUROLOGICAL: No focal deficits. Strength and sensation are grossly intact. Results - Labs 10/29/17 19:09 10/29/17 19:09 Abnormal Lab Results - Last 24 Hours (Table) 10/29/17 10/29/17 Range/Units 19:09 19:09 WBC 11.3 H (3.8-10.6) k/uL Neutrophils # 8.2 H (1.3-7.7) k/uL Glucose 102 H (74-99) mg/dL Lipase 13 L (23-300) U/L Diabetes panel 10/29/17 Range/Units 19:09 Sodium 140 (137-145) mmol/L Potassium 4.5 (3.5-5.1) mmol/L Chloride 100 (98-107) mmol/L Carbon Dioxide 27 (22-30) mmol/L BUN 18 (9-20) mg/dL Creatinine 0.72 (0.66-1.25) mg/dL Glucose 102 H (74-99) mg/dL Calcium 9.7 (8.4-10.2) mg/dL AST 31 (17-59) U/L ALT 36 (21-72) U/L Alkaline Phosphatase 63 (38-126) U/L Total Protein 7.3 (6.3-8.2) g/dL Albumin 4.5 (3.5-5.0) g/dL Calcium panel 10/29/17 Range/Units 19:09 Calcium 9.7 (8.4-10.2) mg/dL Albumin 4.5 (3.5-5.0) g/dL Pituitary panel 10/29/17 Range/Units 19:09 Sodium 140 (137-145) mmol/L Potassium 4.5 (3.5-5.1) mmol/L Chloride 100 (98-107) mmol/L Carbon Dioxide 27 (22-30) mmol/L BUN 18 (9-20) mg/dL Creatinine 0.72 (0.66-1.25) mg/dL Glucose 102 H (74-99) mg/dL Calcium 9.7 (8.4-10.2) mg/dL Adrenal panel 10/29/17 Range/Units 19:09 Sodium 140 (137-145) mmol/L Potassium 4.5 (3.5-5.1) mmol/L Chloride 100 (98-107) mmol/L Carbon Dioxide 27 (22-30) mmol/L BUN 18 (9-20) mg/dL Creatinine 0.72 (0.66-1.25) mg/dL Glucose 102 H (74-99) mg/dL Calcium 9.7 (8.4-10.2) mg/dL Total Bilirubin 0.5 (0.2-1.3) mg/dL AST 31 (17-59) U/L ALT 36 (21-72) U/L Alkaline Phosphatase 63 (38-126) U/L Total Protein 7.3 (6.3-8.2) g/dL Albumin 4.5 (3.5-5.0) g/dL Assessment and Plan Assessment: Impression Present on admission right lower quadrant abdominal pain suspect due to small bowel obstruction as evident on a KUB History reoccurring episodes of small bowel obstruction Chronic intermediate partial small bowel obstruction Surgical history of cholecystectomy 2014 Present on admission leukocytosis likely due to dose of outpatient oral steroids Recent treatment for bronchitis Plan Follow-up on the CAT scan abdomen and pelvis with contrast currently pending Pain control IV fluid for hydration DVT and GI prophylaxis Keep nothing by mouth until results of the CAT scan are reviewed Further surgical recommendations pending Will follow with you Surgical consultation note dictated for Dr. byrd The above impression and plan of care have been discussed and directed by signing physician. Shweta Shane nurse practitioner acting as scribe for signing physician.
--- NOTE | 2017-10-30 11:25 | CT ---
EXAMINATION TYPE: CT abdomen pelvis w con DATE OF EXAM: 10/30/2017 COMPARISON: 10/19/2018 HISTORY: 62-year-old male follow-up SBO TECHNIQUE: Contiguous axial scanning of the abdomen and pelvis following administration of 100 ml Iso diane 300 IV contrast. Delayed images through the kidneys and coronal/sagittal reconstructions perform ed. CT DLP: 2043.1 mGycm Automated exposure control for dose reduction was used. FINDINGS: Heart normal size without pericardial effusion. Mildly enlarged caliber to the main right pulmonary a rtery may reflect underlying pulmonary arterial hypertension. Mild emphysematous change in the lower lungs with some strandy atelectasis or scarring at the right lower lobe. No pleural effusion. Liver is borderline enlarged at 17.9 cm. There may be underlying fatty infiltration. Portal venous sy stem is patent. No biliary ductal dilatation. Small hiatal hernia. Gallbladder surgically absent. Adrenal glands, spleen, and pancreas appear within normal limits. Cysts are redemonstrated within the kidneys measuring up to 2.4 cm on the right and 1.4 cm on the lef t. Symmetric uptake and excretion of contrast from the kidneys. No mesenteric or retroperitoneal lymphadenopathy. Mild apical scarring calcifications within the abdo krunal aorta and iliac arteries. There appears to be some post surgical change along the anterior abdominal wall likely a 3.4 x 1.7 cm omental fat-containing right paramedian incisional hernia at the umbilical level. Overall degree of distention and abnormal small bowel wall thickening shows improvement with small man wel loops measuring up to 3.8 cm versus 5.6 cm, previously. Some residual wall thickening remains in the mid and distal small bowel. Proximal jejunum is not abnormally distended. Oral contrast has progressed to the distal third small bowel level. The terminal ileum remains collap sed. Mild stool burden with left-sided colonic diverticulosis, severe in the sigmoid colon with areas of m ild associated wall thickening proximal to mid sigmoid. No free fluid or free air. Bladder urine distended. Pelvic fluid was. No abnormal fluid collection the pelvis or pelvic lymphade nopathy. Bones: Mild degenerative changes at the hips. Degenerative disc disease L5-S1 as well as facet arthro carey in the lower lumbar spine. Bridging anterior endplate spondylosis suggesting DISH in the lower thoracic spine. IMPRESSION: 1. PERSISTENT BUT IMPROVING WALL THICKENING AND ABNORMAL DILATATION OF MID AND DISTAL SMALL BOWEL LOO PS. SMALL BOWEL LOOPS MEASURE UP TO 3.8 CM VERSUS 5.6 CM, PREVIOUSLY. THE TERMINAL ILEUM WELL P ROXIMAL JEJUNUM IS NOT ABNORMALLY DISTENDED. POSSIBLE ILEUS OR ENTERITIS. RESOLVING SMALL BOWEL OBSTR UCTION NOT ENTIRELY EXCLUDED. 2. LEFT SIDED COLONIC DIVERTICULOSIS, SEVERE IN THE SIGMOID COLON WITH ASSOCIATED WALL THICKENING. TH IS CAN BE SEEN IN THE SETTING OF CHRONIC DIVERTICULITIS.
[2017-10-30] MEDS ORDERED: ALBUTEROL NEBULIZED 2.5 MG/3 ML INHALATION PRN (11:27)
[2017-10-30] MEDS ORDERED: AZITHROMYCIN 250 MG TAB PO SCH (11:30)
[2017-10-30] MEDS: FAMOTIDINE 20 MG/2 ML VIAL IV SCH ×2 (11:31→20:22)
--- NOTE | 2017-10-30 11:37 | P.HPIM ---
History of Present Illness H&P Date: 10/30/17 Chief Complaint: abdominal pain This is a 62-year-old male patient of Dr. hartman. Presented to the emergency department with complaints of abdominal pain and abdominal distention. Patient stated that the pain started yesterday. Patient has a significant history for skin cancer, deep vein thrombosis, GERD, pneumonia, CDiff (2009), and chronic intermediate partial small bowel obstructions. Patient seen by Dr. Jimenez and has a history of exploratory lap with lysis of adhesions and small bowel bowel decompression. Patient was recently discharged from the hospital on for small bowel obstruction and was medically managed by Dr. Fu at that time. Patient does state that he is passing some gas and had a bowel movement Friday morning. X-ray KUB completed in the ER, showing small bowel obstruction. Patient denies nausea or vomiting. Denies chest pain or shortness of breath. Dr. Fu per surgical services has been consulted and CT of abdomen and pelvis have been ordered. Review of Systems Please see HPI otherwise unremarkable Past Medical History Past Medical History: Cancer, Deep Vein Thrombosis (DVT), GERD/Reflux, Hyperlipidemia, Pneumonia Additional Past Medical History / Comment(s): SBOs, L lower leg DVT, blood clot behind R eye, basal skin cancer with removals, pneumonia with SIRS, sinus problems, low back pain, L foot plantar fascitis, urine flow issues at times, past hiatal hernia-(sx) History of Any Multi-Drug Resistant Organisms: C-DIFF Date of last positivie culture/infection: 2009 MDRO Source:: stool Past Surgical History: Adenoidectomy, Bowel Resection, Cholecystectomy, Hernia Repair, Tonsillectomy Additional Past Surgical History / Comment(s): Exploratory lap with lysis of adhesions, small bowel decompression, yamileth fundiplication, EGD, colonoscopies/ benign polypectomies, T&A twice, skin cancer removals, Past Anesthesia/Blood Transfusion Reactions: No Reported Reaction Smoking Status: Never smoker - Past Family History Mother Family Medical History: Cancer, Diabetes Mellitus Additional Family Medical History / Comment(s): Emphysema, heart problems, COLON CANCER. Father Additional Family Medical History / Comment(s): COLON CA LIVER CA,MULTIPLE MYELOMA, bone cancer Medications and Allergies Home Medications Medication Instructions Recorded Confirmed Type Ascorbic Acid [Vitamin C] 1,000 mg PO QID 04/04/15 10/29/17 History Calcium Carbonate/Vitamin D3 2 tab PO BID 04/04/15 10/29/17 History [Calcium 600-Vit D3 400 Tablet] Multivitamins, Thera [Multivitamin 2 tab PO HS 04/04/15 10/29/17 History (formulary)] Docusate [Colace] 100 mg PO HS 07/05/15 10/29/17 History Fish Oil/Dha/Epa [Fish Oil 1,200 1 cap PO BID 05/26/16 10/29/17 History mg Fish Oil] Folic Acid 0.8 mg PO HS 05/26/16 10/29/17 History Hyoscyamine Sulfate [Levsin] 0.125 mg PO HS PRN 04/24/17 10/29/17 History Selenium 200 mcg PO HS 08/25/17 10/29/17 History Vardenafil HCl [Levitra] 20 mg PO DAILY PRN 10/18/17 10/29/17 History Albuterol Inhaler [Ventolin Hfa 1 - 2 puff INHALATION RT-Q6H PRN 10/29/17 History Inhaler] Azithromycin [Zithromax Z-pack] See Taper PO DAILY 10/29/17 10/29/17 History methylPREDNISolone [Medrol Dose See Taper PO DIRECTED 10/29/17 10/29/17 History Pack] Allergies Allergy/AdvReac Type Severity Reaction Status Date / Time morphine Allergy Rash/Hives Verified 10/29/17 19:01 Penicillins Allergy Rash/Hives, Verified 10/29/17 19:01 WHEEZING Physical Exam Vitals: Vital Signs Temp Pulse Pulse Resp BP BP Pulse Ox 10/30/17 08:11 98.1 F 60 16 116/74 92 L 10/29/17 23:00 98.4 F 68 16 118/72 94 L 10/29/17 20:53 98.9 F 81 17 112/71 98 10/29/17 17:38 98.4 F 76 18 109/67 96 Intake and Output 10/29/17 10/30/17 10/30/17 22:59 06:59 14:59 Intake Total 675 Balance 675 Intake: Intake, IV Titration 675 Amount Sodium Chloride 0.9% 1, 675 000 ml @ 75 mls/hr IV . [id number] Rx#:[id number] Other: # Voids 3 1 Weight 108.862 kg Head normocephalic Neck supple Lungs clear to auscultation bilaterally no wheezing or crackles Heart regular rate and rhythm S1-S2, no rub or gallop Abdomen is soft nontender, distended positive bowel sounds no hepatosplenomegaly Extremities no edema Neuro alert and orientated to 3 Results CBC & Chem 7: 10/29/17 19:09 10/29/17 19:09 Labs: Abnormal Lab Results - Last 24 Hours (Table) 10/29/17 10/29/17 Range/Units 19:09 19:09 WBC 11.3 H (3.8-10.6) k/uL Neutrophils # 8.2 H (1.3-7.7) k/uL Glucose 102 H (74-99) mg/dL Lipase 13 L (23-300) U/L Assessment and Plan Assessment: 1. Small bowel obstruction: KUB completed in the ER showing small bowel obstruction. Surgical services have been consulted and CTof abdomen has been ordered. Patient currently NPO 2. Bronchitis: Patient was getting treated outpatient for bronchitis with azithromycin. Azithromycin reordered. 3. History of Hyperlipidemia 4. History of benign prostatic hypertrophy. 6. Previous history of DVT, use SCD stockings at this time until surgical recommendations 7. Multiple abdominal surgeries in the past, including cholecystectomy, expiratory laparotomy with lysis of adhesions and Niesen fundoplication. 8. History of plantar fasciitis Time with Patient: Greater than 30 (Greater than 60% of the total time spent in counseling and coordination of care.I performed an examination of the patient and discussed their management with the Nurse Practitioner. I have reviewed the Nurse Practitioner's notes and agree with the documented findings and plan of care)
[2017-10-30] MEDS: LEVOFLOXACIN 500MG-D5W PMX 500 MG in DEXTROSE/WATER 1 100ML.BAG IVPB SCH (14:35)
[2017-10-30] MEDS: ASCORBIC ACID 500 MG TAB PO SCH ×3 (14:35→22:06)
[2017-10-30] MEDS: metroNIDAZOLE-NS PMX 500 MG in SALINE 1 100ML.BAG IVPB SCH ×2 (16:42→23:39)
[2017-10-30] MEDS: CALCIUM CARB-VIT D 500MG-200UN 1 EACH TAB PO SCH (20:22)
[2017-10-30] MEDS ORDERED: FOLIC ACID 1 MG TAB PO SCH (21:00)
[2017-10-30] MEDS ORDERED: NON-FORMULARY DRUG (Selenium [Selenium] 200 MCG) PO SCH (21:00)
[2017-10-30] MEDS ORDERED: NON-FORMULARY DRUG (Fish Oil/Dha/Epa [Fish Oil 1,200 Mg Fish Oil] 1 CAP) PO SCH (21:00)
[2017-10-30] MEDS ORDERED: DOCUSATE 100 MG CAP PO SCH (21:00)
[2017-10-31] MEDS: FAMOTIDINE 20 MG/2 ML VIAL IV SCH (07:39)
[2017-10-31] MEDS: metroNIDAZOLE-NS PMX 500 MG in SALINE 1 100ML.BAG IVPB SCH ×2 (07:40→15:36)
[2017-10-31] MEDS: ASCORBIC ACID 500 MG TAB PO SCH ×2 (07:40→10:56)
[2017-10-31] MEDS: CALCIUM CARB-VIT D 500MG-200UN 1 EACH TAB PO SCH (07:40)
[2017-10-31] MEDS: SODIUM CHLORIDE 0.9% 1,000 ML IV SCH (07:41)
[2017-10-31 07:52] LABS: Basophils # (A) 0.1 k/uL (0-0.2); Basophils % (A) 1 %; Eosinophils # (A) 0.3 k/uL (0-0.7); Eosinophils % (A) 6 %; HCT 44.4 % (39.0-53.0); HGB 14.7 gm/dL (13.0-17.5); Lymphocytes # (A) 1.7 k/uL (1.0-4.8); Lymphocytes % (A) 32 %; MCH 30.8 pg (25.0-35.0); MCHC 33.1 g/dL (31.0-37.0); MCV 92.8 fL (80.0-100.0); Mean Platelet Volume 6.5; Monocytes # (A) 0.4 k/uL (0-1.0); Monocytes % (A) 8 %; Neutrophils # (A) 2.7 k/uL (1.3-7.7); Neutrophils % (A) 49 %; Platelet Count 279 k/uL (150-450); RBC 4.78 m/uL (4.30-5.90); RDW 13.5 % (11.5-15.5); WBC 5.4 k/uL (3.8-10.6)
[2017-10-31 08:15] LABS: Anion Gap 11 mmol/L; Blood Urea Nitrogen 16 mg/dL (9-20); Calcium 8.8 mg/dL (8.4-10.2); Carbon Dioxide 26 mmol/L (22-30); Chloride 103 mmol/L (98-107); Glucose 87 mg/dL (74-99); Potassium 4.6 mmol/L (3.5-5.1); Sodium 140 mmol/L (137-145)
--- NOTE | 2017-10-31 09:18 | P.PN ---
Subjective Progress Note Date: 10/31/17 62-year-old male seen and examined. Patient sitting up on the edge of the bed. Patient states had a bowel movement this morning. States slight improvement in the abdominal pain. Computed tomography scan abdomen and pelvis done yesterday report reviewed showed persistent but improving wall thickening small bowel loops possible enteritis. Resolving small bowel obstruction. Left side colon Diverticulosis severe in the sigmoid colon GIs recommendations this morning noted oreded MR enterography Objective - Vital Signs Vital signs: Vital Signs Temp 98.5 F 10/31/17 06:27 Pulse 67 10/31/17 06:27 Resp 16 10/31/17 06:27 BP 118/66 10/31/17 06:27 Pulse Ox 96 10/31/17 06:27 Intake & Output 10/30/17 10/31/17 10/31/17 18:59 06:59 18:59 Intake Total 600 Balance 600 Intake: Intake, IV Titration 600 Amount Sodium Chloride 0.9% 1, 600 000 ml @ 75 mls/hr IV . [id number] [facility] Rx#:[id number] Other: Voiding Method Toilet # Voids 1 2 - Exam Physical exam 52-year-old male sitting up on the edge of the bed appears in no acute distress states pain medication does reduce the abdominal pain Lungs adequate air movement bilaterally Heart S1-S2 audible regular Abdomen soft nontender not distended states less abdominal cramping states had a bowel movement this morning no nausea no vomiting positive bowel sounds Extremities no edema - Labs CBC & Chem 7: 10/31/17 07:01 10/31/17 07:01 Assessment and Plan Assessment: Impression Present on admission right lower quadrant abdominal pain suspect due to enteritis with small bowel obstruction as evident on a KUB History reoccurring episodes of small bowel obstruction Chronic intermediate partial small bowel obstruction Surgical history of cholecystectomy 2015 Present on admission leukocytosis likely due to dose of outpatient oral steroids Recent treatment for bronchitis Plan Recommendations GI MR enterography follow up on results Pain control IV fluid for hydration DVT and GI prophylaxis Keep nothing by mouth until results of the CAT scan are reviewed Further surgical recommendations pending Will follow with you note dictated for Dr. byrd The above impression and plan of care have been discussed and directed by signing physician. Shweta Shane nurse practitioner acting as scribe for signing physician.
--- NOTE | 2017-10-31 10:49 | P.CONS ---
History of Present Illness - Reason for Consult Consult date: 10/31/17 abdominal pain enteritis Requesting physician: Dilan Fu - History of Present Illness 62-year-old male admitted with acute recurrent abdominal pain secondary to partial small bowel obstructions. He has a history of multiple partial small bowel obstructions in the past. Patient states his history of abdominal pain dates back to when he was 14 years old. For most of his adult life he's had some form of chronic mid to lower abdominal pain associated with intermittent hospitalizations for partial small bowel obstructions. He has intermittent diarrhea but not chronically her on a daily basis. Most the time surgical intervention is not needed however he did undergo exploratory surgery small bowel resection ysis of adhesions a few years ago in 2015 biopsies benign small bowel with acute enteritis and foci of superficial mucosal ischemic change. His additional surgical history is cholecystectomy and Yamileth fundoplication. To his memory colonoscopy was performed about 3 years ago and was unremarkable. Presently he is passing stool. He has no personal a familial history of inflammatory bowel disease. He has had multiple CTs of the abdomen and pelvis over the last year consistently reporting some form of small bowel pathology whether it's thickening or dilation; CT yesterday reported persistent but improving wall thickening and abnormal dilatation of the mid and distal small bowel loops. The terminal ileum as well as proximal jejunum is not distended possible ileus or enteritis with resolving small bowel obstruction cannot be excluded. Left-sided colonic diverticulosis. Denies hematemesis hematochezia or melena. No weight loss. No fevers. White count 5.4. Hemoglobin 14.7. Denies any vision or skin changes. Review of Systems Constitutional: Denies fever, chills, sweats, weight gain, or loss. HEENT: Negative for migraines, blurred vision or loss, earaches, drainage, tinnitus, oral mucosal lesions, dysphagia, or odynophagia. Cardiac: Negative for chest pain, arrhythmias, or palpitation. Respiratory: Negative for shortness of breath, hemoptysis, cough, or sputum production. Gastrointestinal: See HPI for pertinent findings. Genitourinary: Negative for hematuria, urgency, frequency, polyuria, dysuria, or penile discharge. Musculoskeletal: Negative for muscle aches, swelling, arthritis, and arthralgias. Neurologic: Negative for stroke or TIA. Endocrine: Negative for thyroid problems. Skin: Negative for rash or itching. Psychiatric: Negative history for depression and anxiety Past Medical History Past Medical History: Cancer, Deep Vein Thrombosis (DVT), GERD/Reflux, Hyperlipidemia, Pneumonia Additional Past Medical History / Comment(s): SBOs, L lower leg DVT, blood clot behind R eye, basal skin cancer with removals, pneumonia with SIRS, sinus problems, low back pain, L foot plantar fascitis, urine flow issues at times, past hiatal hernia-(sx) History of Any Multi-Drug Resistant Organisms: C-DIFF Year Discovered:: 2009 MDRO Source:: stool Past Surgical History: Adenoidectomy, Bowel Resection, Cholecystectomy, Hernia Repair, Tonsillectomy Additional Past Surgical History / Comment(s): Exploratory lap with lysis of adhesions, small bowel decompression, yamileth fundiplication, EGD, colonoscopies/ benign polypectomies, T&A twice, skin cancer removals, Past Anesthesia/Blood Transfusion Reactions: No Reported Reaction Smoking Status: Never smoker - Past Family History Mother Family Medical History: Cancer, Diabetes Mellitus Additional Family Medical History / Comment(s): Emphysema, heart problems, COLON CANCER. Father Additional Family Medical History / Comment(s): COLON CA LIVER CA,MULTIPLE MYELOMA, bone cancer Medications and Allergies Home Medications Medication Instructions Recorded Confirmed Type Ascorbic Acid [Vitamin C] 1,000 mg PO QID 04/04/15 10/29/17 History Calcium Carbonate/Vitamin D3 2 tab PO BID 04/04/15 10/29/17 History [Calcium 600-Vit D3 400 Tablet] Multivitamins, Thera [Multivitamin 2 tab PO HS 04/04/15 10/29/17 History (formulary)] Docusate [Colace] 100 mg PO HS 07/05/15 10/29/17 History Fish Oil/Dha/Epa [Fish Oil 1,200 1 cap PO BID 05/26/16 10/29/17 History mg Fish Oil] Folic Acid 0.8 mg PO HS 05/26/16 10/29/17 History Hyoscyamine Sulfate [Levsin] 0.125 mg PO HS PRN 04/24/17 10/29/17 History Selenium 200 mcg PO HS 08/25/17 10/29/17 History Vardenafil HCl [Levitra] 20 mg PO DAILY PRN 10/18/17 10/29/17 History Albuterol Inhaler [Ventolin Hfa 1 - 2 puff INHALATION RT-Q6H PRN 10/29/17 History Inhaler] Azithromycin [Zithromax Z-pack] See Taper PO DAILY 10/29/17 10/29/17 History methylPREDNISolone [Medrol Dose See Taper PO DIRECTED 10/29/17 10/29/17 History Pack] Allergies Allergy/AdvReac Type Severity Reaction Status Date / Time morphine Allergy Rash/Hives Verified 10/29/17 19:01 Penicillins Allergy Rash/Hives, Verified 10/29/17 19:01 WHEEZING Physical Exam Vitals: Vital Signs Temp Pulse Resp BP BP Pulse Ox 10/31/17 06:27 98.5 F 67 16 118/66 96 10/30/17 23:00 97.8 F 69 16 116/66 95 10/30/17 17:44 125/84 10/30/17 17:31 98.1 F 73 20 161/97 96 10/30/17 14:05 98.7 F 70 16 120/94 94 L Intake and Output 10/30/17 10/31/17 10/31/17 22:59 06:59 14:59 Other: Voiding Method Toilet # Voids 1 2 General appearance: The patient is alert, oriented, in no acute distress. HET: Head is normocephalic and atraumatic. Pupils are equal and reactive. Oropharynx is clear without lesions. Neck: Supple without lymphadenopathy. Trachea midline. Heart: S1 S2. Regular rate and rhythm. Lungs: No crackles or wheezes are heard. Abdomen: Soft, mild tenderness across the midabdomen, nondistended with bowel sounds. No peritoneal signs. No palpable organomegaly or masses. Extremities: Normal skin color and turgor. No cyanosis, rash, ulceration, clubbing, or edema. Radial and pedal pulses are 2/4 bilaterally. Neurological: No focal deficits. Strength and sensation are grossly intact. Results CBC & Chem 7: 10/31/17 07:01 10/31/17 07:01 CT scan - abdomen: report reviewed (Dr. Quiroga) Assessment and Plan (1) Abdominal pain Narrative/Plan: 62-year-old male admitted with acute abdominal pain secondary to partial small bowel obstruction with a history of intermittent partial small bowel obstructions at one time requiring small bowel resection with biopsies reporting benign mucosa. Underlying inflammatory bowel disease cannot be entirely excluded possible underlying IBS etiology of his presentation is unclear at this time. Current Visit: Yes Status: Acute Code(s): R10.9 - UNSPECIFIED ABDOMINAL PAIN SNOMED Code(s): 27734216 (2) Small bowel obstruction Current Visit: Yes Status: Acute Code(s): K56.69 - OTHER INTESTINAL OBSTRUCTION * DO NOT USE * SNOMED Code(s): 048925556 Plan: 1. Recommend MR enterography further recommendations forthcoming after review of study. 2. Will obtain sed rate, CRP, fecal calprotectin to assess for possible IBD. Thank you for this kind referral and the opportunity to participate in the care of your patient. This consultation was discussed with Dr. Quiroga. The impression and plan of care have been directed as dictated.
[2017-10-31] MEDS: LEVOFLOXACIN 500MG-D5W PMX 500 MG in DEXTROSE/WATER 1 100ML.BAG IVPB SCH (11:01)
--- NOTE | 2017-10-31 13:02 | P.PN ---
Subjective Progress Note Date: 10/31/17 This is a 62-year-old male patient of Dr. hartman. Presented to the emergency department with complaints of abdominal pain and abdominal distention. Patient stated that the pain started yesterday. Patient has a significant history for skin cancer, deep vein thrombosis, GERD, pneumonia, CDiff (2009), and chronic intermediate partial small bowel obstructions. Patient seen by Dr. Jimenez and has a history of exploratory lap with lysis of adhesions and small bowel bowel decompression. Patient was recently discharged from the hospital on for small bowel obstruction and was medically managed by Dr. Fu at that time. Patient does state that he is passing some gas and had a bowel movement Friday morning. X-ray KUB completed in the ER, showing small bowel obstruction. Patient denies nausea or vomiting. Denies chest pain or shortness of breath. Dr. Fu per surgical services has been consulted and CT of abdomen and pelvis have been ordered. 10/31/2017 patient reporting improvement in his abdominal pain. No nausea or vomiting. Reports having a bowel movement. He had a computed tomography scan of the abdomen completed showing persistent but improving wall thickening and abnormal dilation of the mid and distal small bowel loops. Possible ileus or enteritis. Resolving small bowel obstruction not entirely excluded. Patient is followed by GI and surgical service. He was started on Levaquin and Flagyl yesterday. GI service has ordered an MR enterography. White count has normalized. Objective - Vital Signs Vital signs: Vital Signs Temp 98.5 F 10/31/17 06:27 Pulse 67 10/31/17 06:27 Resp 16 10/31/17 06:27 BP 118/66 10/31/17 06:27 Pulse Ox 96 10/31/17 06:27 Intake & Output 10/30/17 10/31/17 10/31/17 18:59 06:59 18:59 Intake Total 600 Balance 600 Intake: Intake, IV Titration 600 Amount Sodium Chloride 0.9% 1, 600 000 ml @ 75 mls/hr IV . [id number] [facility] Rx#:[id number] Other: Voiding Method Toilet # Voids 1 2 2 - Exam Head normocephalic Neck supple Lungs clear to auscultation bilaterally no wheezing or crackles Heart regular rate and rhythm S1-S2, no rub or gallop Abdomen is soft nontender nondistended positive bowel sounds no hepatosplenomegaly Extremities no edema Neuro alert and orientated to 3 - Labs CBC & Chem 7: 10/31/17 07:01 10/31/17 07:01 Assessment and Plan Assessment: 1. Abdominal pain likely related to partial Small bowel obstruction or enteritis: Patient followed by GI and surgical services. Currently on Levaquin and Flagyl GI service is concerned about underlying inflammatory bowel disease. They have ordered an MR enterography for further evaluation. We'll await their further recommendations 2. Bronchitis: Patient was getting treated outpatient for bronchitis with azithromycin. Azithromycin reordered. 3. History of Hyperlipidemia 4. History of benign prostatic hypertrophy. 6. Previous history of DVT, use SCD stockings at this time until surgical recommendations 7. Multiple abdominal surgeries in the past, including cholecystectomy, expiratory laparotomy with lysis of adhesions and Niesen fundoplication. 8. History of plantar fasciitis 9. Leukocytosis on admission patient had been on outpatient oral steroids for his bronchitis
[2017-10-31] MEDS ORDERED: GLUCAGON 1 MG/ML VIAL IM STA (13:27)
--- NOTE | 2017-10-31 15:34 | MR ---
EXAMINATION TYPE: MR Enterography DATE OF EXAM: 10/31/2017 COMPARISON: CT abdomen and pelvis from yesterday and older studies. HISTORY: Abd pain, N & V, repeated admissions for partial small bowel obstruction. CONTRAST: Standard multiplanar, multisequence imaging of the abdomen is performed without and with IV contrast, patient is injected with 900ml mL intravenous Gadavist gadolinium contrast. Oral Volumen was given a s per enterography protocol. FINDINGS: Bowel: Surgical changes just below diaphragm from Ronald fundoplication surgery are seen better on CT versus enterography. There is satisfactory distention of stomach without suspicious wall thickening. There is satisfactory fluid-filled distention of majority of duodenum without suspicious wall thicke ned. Ligament of Treitz is in abnormal position at fourth portion of duodenum descends from third po rtion consistent with underlying malrotation. Underlying SMA/SMV relationship is preserved. There is fairly satisfactory fluid-filled prominence of small bowel loops throughout the abdomen and upper pel vis similar to CT. Some nonspecific bowel loops left abdomen on recent CT show improved intraluminal distention on MRI. No suspicious eccentric wall thickening or irregular mural enhancement is identifi ed on current exam. Terminal ileum shows no suspicious wall thickening or enhancement. No suspicious mesenteric edema or fat stranding is present. Some scattered diverticula are seen throughout the colo n most prominent in the left and sigmoid colon without surrounding inflammatory change. Other: Gallbladder is not visualized and surgically absent. There are a few simple appearing cysts sc attered throughout both kidneys redemonstrated. Visualized osseous structures are intact. There is fa t-containing ventral wall hernia in the anterior vertical scar redemonstrated. IMPRESSION: No evidence of active small bowel inflammation. Malpositioned ligament of Treitz otherwis e unremarkable study.
[2017-10-31 16:01] VITALS: BP 117/66; PULSE 74; RESP 18; TEMP 98.3
--- NOTE | 2017-10-31 16:10 | P.DS ---
Providers Date of admission: 10/29/17 20:25 Expected date of discharge: 10/31/17 Attending physician: Cesar Ferrera Consults: 10/29/17 19:33 Consult Physician Stat Consulting Provider: Dilan Fu Consult Reason/Comments: SBO Do you want consulting provider notified?: Yes 10/30/17 13:36 Consult Physician Stat Consulting Provider: Lily Quiroga Consult Reason/Comments: poss enteritis Do you want consulting provider notified?: Yes Primary care physician: Lurdes Swanson Hospital Course: Diagnoses on discharge: 1. Abdominal pain likely related to partial Small bowel obstruction or enteritis: Patient followed by GI and surgical services. Currently on Levaquin and Flagyl. Patient had enterography MRI and was cleared for discharge by Gastroenterology GI service is concerned about underlying inflammatory bowel disease. They have ordered an MR enterography for further evaluation. We'll await their further recommendations 2. Bronchitis: Patient was getting treated outpatient for bronchitis with azithromycin. Azithromycin reordered. 3. History of Hyperlipidemia 4. History of benign prostatic hypertrophy. 6. Previous history of DVT, use SCD stockings at this time until surgical recommendations 7. Multiple abdominal surgeries in the past, including cholecystectomy, expiratory laparotomy with lysis of adhesions and Niesen fundoplication. 8. History of plantar fasciitis. Hospital course: This is a 62-year-old male patient of Dr. hartman. Presented to the emergency department with complaints of abdominal pain and abdominal distention. Patient stated that the pain started yesterday. Patient has a significant history for skin cancer, deep vein thrombosis, GERD, pneumonia, CDiff (2009), and chronic intermediate partial small bowel obstructions. Patient seen by Dr. Jimenez and has a history of exploratory lap with lysis of adhesions and small bowel bowel decompression. Patient was recently discharged from the hospital on for small bowel obstruction and was medically managed by Dr. Fu at that time. Patient does state that he is passing some gas and had a bowel movement Friday morning. X-ray KUB completed in the ER, showing small bowel obstruction. Patient denies nausea or vomiting. Denies chest pain or shortness of breath. Dr. Fu per surgical services has been consulted and CT of abdomen and pelvis have been ordered. 10/31/2017 patient reporting improvement in his abdominal pain. No nausea or vomiting. Reports having a bowel movement. He had a computed tomography scan of the abdomen completed showing persistent but improving wall thickening and abnormal dilation of the mid and distal small bowel loops. Possible ileus or enteritis. Resolving small bowel obstruction not entirely excluded. Patient is followed by GI and surgical service. He was started on Levaquin and Flagyl yesterday. GI service has ordered an MR enterography. White count has normalized. patient had MRI enterography which was within normal limits he was cleared by gastroenterology for discharge he was discharged home on 10/31/2017 he was given 3 more days of Levaquin 500 mg once daily and 3 more days of Flagyl 500 mg 3 times daily he will follow-up was gastroenterology within 1 week also follow-up with his primary care physician Dr. hartman within 1 week Plan - Discharge Summary Discharge Rx Participant: No New Discharge Prescriptions: New Levofloxacin [Levaquin] 500 mg PO DAILY 3 Days #3 tab Levofloxacin 500Mg-D5w Pmx [Levaquin 500Mg-D5w Pmx] 500 mg IVPB Q24H bag metroNIDAZOLE [Flagyl] 250 mg PO TID #9 tab Continue Multivitamins, Thera [Multivitamin (formulary)] 2 tab PO HS Calcium Carbonate/Vitamin D3 [Calcium 600-Vit D3 400 Tablet] 2 tab PO BID Ascorbic Acid [Vitamin C] 1,000 mg PO QID Docusate [Colace] 100 mg PO HS Folic Acid 0.8 mg PO HS Fish Oil/Dha/Epa [Fish Oil 1,200 mg Fish Oil] 1 cap PO BID Hyoscyamine Sulfate [Levsin] 0.125 mg PO HS PRN PRN Reason: CRAMPING Selenium 200 mcg PO HS Vardenafil HCl [Levitra] 20 mg PO DAILY PRN PRN Reason: ERECTILE DYSFUNCTION Albuterol Inhaler [Ventolin Hfa Inhaler] 1 - 2 puff INHALATION RT-Q6H PRN PRN Reason: Shortness Of Breath Discontinued methylPREDNISolone [Medrol Dose Pack] See Taper PO DIRECTED Azithromycin [Zithromax Z-pack] See Taper PO DAILY Discharge Medication List Ascorbic Acid [Vitamin C] 1,000 mg PO QID 04/04/15 [History] Calcium Carbonate/Vitamin D3 [Calcium 600-Vit D3 400 Tablet] 2 tab PO BID [History] Multivitamins, Thera [Multivitamin (formulary)] 2 tab PO HS 12/01/15 [History] Docusate [Colace] 100 mg PO HS 07/05/15 [History] Fish Oil/Dha/Epa [Fish Oil 1,200 mg Fish Oil] 1 cap PO BID 05/26/16 [History] Folic Acid 0.8 mg PO HS 05/26/16 [History] Hyoscyamine Sulfate [Levsin] 0.125 mg PO HS PRN 04/24/17 [History] Selenium 200 mcg PO HS 08/25/17 [History] Vardenafil HCl [Levitra] 20 mg PO DAILY PRN 10/18/17 [History] Albuterol Inhaler [Ventolin Hfa Inhaler] 1 - 2 puff INHALATION RT-Q6H PRN [History] Levofloxacin 500Mg-D5w Pmx [Levaquin 500Mg-D5w Pmx] 500 mg IVPB Q24H bag [Rx] Levofloxacin [Levaquin] 500 mg PO DAILY 3 Days #3 tab 10/31/17 [Rx] metroNIDAZOLE [Flagyl] 250 mg PO TID #9 tab 10/31/17 [Rx] Follow up Appointment(s)/Referral(s): Chidi Adams MD [STAFF PHYSICIAN] - 12/15/17 5:15 pm Lurdes Swanson MD [Primary Care Provider] - 1-2 days Dilan Fu MD [STAFF PHYSICIAN] - 1 Week Patient Instructions/Handouts: Bowel Obstruction (DC)
== END 2017-10-31 17:06 | disposition home or self-care (01) | DRG 390 ==
LOC: EC 17:06 → 3SUR 20:25 → 4MS4W 10-30 17:15
PROVIDERS: ADMIT Internal Medicine; ATTEND Internal Medicine
DX: K56.600 Partial intestinal obstruction, unspecified as to cause (principal); K52.9 Noninfective gastroenteritis and colitis, unspecified; E78.5 Hyperlipidemia, unspecified; J40 Bronchitis, not specified as acute or chronic; K21.9 Gastro-esophageal reflux disease without esophagitis; K57.30 Diverticulosis of large intestine without perforation or abscess without bleeding; N40.0 Benign prostatic hyperplasia without lower urinary tract symptoms; D72.829 Elevated white blood cell count, unspecified; T38.0X5A Adverse effect of glucocorticoids and synthetic analogues, initial encounter; Z90.49 Acquired absence of other specified parts of digestive tract; Z86.718 Personal history of other venous thrombosis and embolism; Z85.828 Personal history of other malignant neoplasm of skin; Z79.899 Other long term (current) drug therapy; Z88.5 Allergy status to narcotic agent; Z88.0 Allergy status to penicillin; Z87.01 Personal history of pneumonia (recurrent); Z83.3 Family history of diabetes mellitus; Z82.5 Family history of asthma and other chronic lower respiratory diseases; Z80.7 Family history of other malignant neoplasms of lymphoid, hematopoietic and related tissues; Z80.0 Family history of malignant neoplasm of digestive organs; Z80.8 Family history of malignant neoplasm of other organs or systems; Z82.49 Family history of ischemic heart disease and other diseases of the circulatory system; Y92.009 Unspecified place in unspecified non-institutional (private) residence as the place of occurrence of the external cause
CPT/HCPCS: 36415; 72197; 74018; 74177; 74183; 80048; 80053; 81003; 82150; 83690; 83993; 85025; 85652; 86140; 96374; 96375; 99285

== ENCOUNTER 2018-03-30 20:11 | Emergency (ER) | payer OTHER ==
[2018-03-30 20:19] VITALS: RESP 18
--- NOTE | 2018-03-30 21:35 | ED ---
Lower Extremity Injury HPI - General Chief Complaint: Extremity Injury, Lower Stated Complaint: Poss blood clot Time Seen by Provider: 03/30/18 21:04 Source: patient Mode of arrival: ambulatory Limitations: no limitations - History of Present Illness Initial Comments: 's patient is a 62-year-old man with history of previous DVT who presents with complaint of left leg pain. The patient states that he had a harder than expected last shift of work. When he woke up after sleeping today he noted pain to the lateral aspect of the lower portion of the left leg and he also noted an area of redness. He states he had previous history of DVT so he is concerned about possibility of blood clot. This started up around 5 PM today. He took aspirin and when the symptoms did not resolve he felt he should be seen here. He does note that the pain has improved with the aspirin. He is declining further analgesia at initial history and physical. The pain is constant, aching, moderate severity. The pain is worse with palpation or with movement, and better with the aspirin. MD Complaint: other Onset/Timin -: hour(s) Injury: Leg: Left Place: home Severity: moderate Improves With: NSAID (Aspirin) Worsens With: movement Treatments Prior to Arrival: NSAIDS (Aspirin) - Related Data Home Medications Medication Instructions Recorded Confirmed Ascorbic Acid [Vitamin C] 1,000 mg PO QID 04/04/15 03/30/18 Calcium Carbonate/Vitamin D3 2 tab PO BID 04/04/15 03/30/18 [Calcium 600-Vit D3 400 Tablet] Multivitamins, Thera [Multivitamin 2 tab PO HS 04/04/15 03/30/18 (formulary)] Fish Oil/Dha/Epa [Fish Oil 1,200 1 cap PO BID 05/26/16 03/30/18 mg Fish Oil] Folic Acid 0.8 mg PO HS 05/26/16 03/30/18 Selenium 200 mcg PO HS 08/25/17 03/30/18 Aspirin 325 mg PO DAILY 03/30/18 03/30/18 Sennosides/Docusate Sodium [Minerva 1 tab PO BID 03/30/18 03/30/18 Colace] Allergies Allergy/AdvReac Type Severity Reaction Status Date / Time morphine Allergy Rash/Hives Verified 03/30/18 21:06 Penicillins Allergy Rash/Hives, Verified 03/30/18 21:06 WHEEZING Review of Systems ROS Statement: Those systems with pertinent positive or pertinent negative responses have been documented in the HPI. ROS Other: All systems not noted in ROS Statement are negative. Constitutional: Denies: fever, chills Respiratory: Denies: cough, dyspnea, hemoptysis Cardiovascular: Denies: chest pain, palpitations, edema, syncope Musculoskeletal: Reports: as per HPI, myalgia Skin: Denies: rash, lesions Neurological: Denies: weakness, numbness, paresthesias Past Medical History Past Medical History: Cancer, Deep Vein Thrombosis (DVT), GERD/Reflux, Hyperlipidemia, Pneumonia Additional Past Medical History / Comment(s): SBOs, L lower leg DVT, blood clot behind R eye, basal skin cancer with removals, pneumonia with SIRS, sinus problems, low back pain, L foot plantar fascitis, urine flow issues at times, past hiatal hernia-(sx) History of Any Multi-Drug Resistant Organisms: C-DIFF Date of last positivie culture/infection: 2009 MDRO Source:: stool Past Surgical History: Adenoidectomy, Bowel Resection, Cholecystectomy, Hernia Repair, Tonsillectomy Additional Past Surgical History / Comment(s): Exploratory lap with lysis of adhesions, small bowel decompression, yamileth fundiplication, EGD, colonoscopies/ benign polypectomies, T&A twice, skin cancer removals, Past Anesthesia/Blood Transfusion Reactions: No Reported Reaction Past Psychological History: No Psychological Hx Reported Smoking Status: Never smoker Past Alcohol Use History: None Reported Past Drug Use History: None Reported - Past Family History Mother Family Medical History: Cancer, Diabetes Mellitus Additional Family Medical History / Comment(s): Emphysema, heart problems, COLON CANCER. Father Additional Family Medical History / Comment(s): COLON CA LIVER CA,MULTIPLE MYELOMA, bone cancer General Exam Limitations: no limitations General appearance: alert, in no apparent distress Head exam: Present: atraumatic, normocephalic Eye exam: Present: normal appearance. Absent: scleral icterus, conjunctival injection Respiratory exam: Present: normal lung sounds bilaterally. Absent: respiratory distress, wheezes, rales, rhonchi, stridor Cardiovascular Exam: Present: regular rate, normal rhythm, normal heart sounds. Absent: systolic murmur, diastolic murmur, rubs, gallop Extremities exam: Present: full ROM, tenderness (Lateral aspect of the left calf ), normal capillary refill, calf tenderness. Absent: pedal edema, joint swelling Neurological exam: Present: alert. Absent: motor sensory deficit Skin exam: Present: warm, dry, intact, normal color. Absent: rash Course Vital Signs 03/30/18 03/31/18 20:17 00:36 Temperature 98.2 F 97.7 F Pulse Rate 80 90 Respiratory 18 18 Rate Blood Pressure 113/73 155/75 O2 Sat by Pulse 96 97 Oximetry Disposition Clinical Impression: Muscle strain Disposition: HOME SELF-CARE Condition: Good Instructions: Muscle Strain (ED) Is patient prescribed a controlled substance at d/c from ED?: No Referrals: Lurdes Swanson MD [Primary Care Provider] - 1-2 days
--- NOTE | 2018-03-30 23:02 | US ---
EXAMINATION TYPE: US venous doppler duplex LE LT DATE OF EXAM: 03/30/2018 10:47 PM COMPARISON: NONE CLINICAL HISTORY: Pain. Pain on aspirin. SIDE PERFORMED: Left TECHNIQUE: The lower extremity deep venous system is examined utilizing real time linear array sonog martinez with graded compression, doppler sonography and color-flow sonography. VESSELS IMAGED: External Iliac Vein (EIV) Common Femoral Vein Deep Femoral Vein Greater Saphenous Vein * Femoral Vein Popliteal Vein Small Saphenous Vein * Proximal Calf Veins (* superficial vessels) Left Leg: Negative for DVT No evidence of DVT left leg. IMPRESSION: Normal left leg duplex venous sonogram.
[2018-03-31 00:37] VITALS: BP 155/75; PULSE 90; TEMP 97.7
== END 2018-03-31 00:36 | disposition home or self-care (01) ==
LOC: EC 20:11
DX: S86.912A Strain of unspecified muscle(s) and tendon(s) at lower leg level, left leg, initial encounter (principal); Z86.718 Personal history of other venous thrombosis and embolism; Z85.828 Personal history of other malignant neoplasm of skin; Z79.82 Long term (current) use of aspirin; Z79.899 Other long term (current) drug therapy; Z88.5 Allergy status to narcotic agent; Z88.0 Allergy status to penicillin; X58.XXXA Exposure to other specified factors, initial encounter
CPT/HCPCS: 99283

== ENCOUNTER 2018-10-30 15:25 | Inpatient (IN) | payer OTHER, MEDICARE ==
[2018-10-30 17:09] LABS: Basophils % (A) 1 %; Eosinophils # (A) 0.4 k/uL (0-0.7); Eosinophils % (A) 5 %; HCT 49.3 % (39.0-53.0); HGB 16.3 gm/dL (13.0-17.5); Lymphocytes # (A) 1.6 k/uL (1.0-4.8); Lymphocytes % (A) 18 %; MCH 31.1 pg (25.0-35.0); MCV 94.3 fL (80.0-100.0); Mean Platelet Volume 6.9; Monocytes # (A) 0.6 k/uL (0-1.0); Monocytes % (A) 7 %; Neutrophils # (A) 5.9 k/uL (1.3-7.7); Neutrophils % (A) 67 %; Platelet Count 252 k/uL (150-450); RBC 5.23 m/uL (4.30-5.90); RDW 13.3 % (11.5-15.5); WBC 8.8 k/uL (3.8-10.6)
[2018-10-30 17:20] LABS: ALT 49 U/L (21-72); AST 35 U/L (17-59); African American GFR (CKD) >90 (>60 ml/min/1.73 sqM); Albumin 4.6 g/dL (3.5-5.0); Alkaline Phosphatase 70 U/L (38-126); Amylase 36 U/L (30-110); Anion Gap 11 mmol/L; Blood Urea Nitrogen 15 mg/dL (9-20); Calcium 9.5 mg/dL (8.4-10.2); Carbon Dioxide 25 mmol/L (22-30); Chloride 106 mmol/L (98-107); Glucose 100 mg/dL (74-99); Lipase <10 U/L (23-300); Sodium 142 mmol/L (137-145); Total Bilirubin 0.8 mg/dL (0.2-1.3); Total Protein 7.4 g/dL (6.3-8.2)
--- NOTE | 2018-10-30 17:29 | XR ---
EXAMINATION TYPE: XR KUB 2 views DATE OF EXAM: 10/30/2018 COMPARISON: 10/22/1717 HISTORY: Abdominal pain and bloating TECHNIQUE: 2 upright views were obtained. FINDINGS: The visualized lung bases and pleural spaces are negative for acute findings. There is no pneumoperitoneum or pneumatosis. There are several loops of prominently dilated small bowel are present, most impressively within the upper quadrants and particularly on the left. The colon shows scattered gas and stool but does not appear dilated. A similar bowel gas pattern pattern was seen on the prior study one year ago. No definite acute skeletal findings. IMPRESSION: Abnormal bowel gas pattern.
[2018-10-30] MEDS ORDERED: SODIUM CHLORIDE 0.9% 1,000 ML IV STA ×2 (18:42→21:51)
[2018-10-30 19:10] LABS: Appearance,Urine Clear (Clear); Bilirubin,Urine Negative (Negative); Blood,Urine Negative (Negative); Color,Urine Yellow; Glucose,Urine (UA) Negative (Negative); Ketones,Urine 1+ (Negative); Leukocyte Esterase,Urine Negative (Negative); Nitrite,Urine Negative (Negative); PH, Urine 5.5 (5.0-8.0); Protein,Urine Trace (Negative); Specific Gravity,Urine 1.022 (1.001-1.035); Urobilinogen,Urine <2.0 mg/dL (<2.0)
[2018-10-30] MEDS ORDERED: HYDROmorphone 0.5 MG/0.5 ML SYRINGE IVP STA (19:10)
--- NOTE | 2018-10-30 19:11 | ED ---
General Adult HPI - General Chief complaint: Abdominal Pain Stated complaint: Bowel blockage Time Seen by Provider: 10/30/18 18:14 Source: patient, RN notes reviewed, old records reviewed Mode of arrival: ambulatory Limitations: no limitations - History of Present Illness Initial comments: 63-year-old male patient with past medical history of recurrent small bowel obstruction and status post bowel [place] [address] gonzalez presents to ED with abdominal pain and bloating. Patient reports that this feels identical to small bowel obstructions in the past. Patient states that he currently has pain in his right lower quadrant region. Patient states that he last had a bowel movement approximately 4 AM this morning. Patient denies any nausea or vomiting. Patient states that he did pass flatus approximately 1 hour prior to evaluation. Patient denies any other complaints at this time, denies any chest pain or shortness of breath. Systemic: Pt denies fatigue, fever/chills, rash. Pt denies weakness, night sweats, weight loss. Neuro: Pt denies headache, visual disturbances, syncope or pre-syncope. HEENT: Pt denies ocular discharge or irritation, otalgia, rhinorrhea, pharyngitis or notable lymphadenopathy. Cardiopulmonary: Pt denies chest pain, SOB, heart palpitations, dyspnea on exertion. Abdominal/GI: Pt denies n/v/d. : Pt denies dysuria, burning w/ urination, frequency/urgency. Denies new onset urinary or bowel incontinence. MSK: Pt denies myalgia, loss of strength or function in extremities. Neuro: Pt denies new onset weakness, paresthesias. - Related Data Home Medications Medication Instructions Recorded Confirmed Ascorbic Acid [Vitamin C] 1,000 mg PO QID 04/04/15 10/30/18 Calcium Carbonate/Vitamin D3 2 tab PO BID 04/04/15 10/30/18 [Calcium 600-Vit D3 400 Tablet] Multivitamins, Thera [Multivitamin 2 tab PO HS 04/04/15 10/30/18 (formulary)] Fish Oil/Dha/Epa [Fish Oil 1,200 1 cap PO BID 05/26/16 10/30/18 mg Fish Oil] Folic Acid 0.8 mg PO HS 05/26/16 10/30/18 Selenium 200 mcg PO HS 08/25/17 10/30/18 Aspirin 325 mg PO DAILY 03/30/18 10/30/18 Sennosides/Docusate Sodium [Minerva 1 tab PO BID 03/30/18 10/30/18 Colace] Allergies Allergy/AdvReac Type Severity Reaction Status Date / Time morphine Allergy Rash/Hives Verified 10/30/18 21:37 Penicillins Allergy Rash/Hives, Verified 10/30/18 21:37 WHEEZING Review of Systems ROS Statement: Those systems with pertinent positive or pertinent negative responses have been documented in the HPI. ROS Other: All systems not noted in ROS Statement are negative. Past Medical History Past Medical History: Cancer, Deep Vein Thrombosis (DVT), GERD/Reflux, Hyperlipidemia, Pneumonia Additional Past Medical History / Comment(s): SBOs, L lower leg DVT, blood clot behind R eye, basal skin cancer with removals, pneumonia with SIRS, sinus problems, low back pain, L foot plantar fascitis, urine flow issues at times, past hiatal hernia-(sx) History of Any Multi-Drug Resistant Organisms: C-DIFF Date of last positivie culture/infection: 2009 MDRO Source:: stool Past Surgical History: Adenoidectomy, Bowel Resection, Cholecystectomy, Hernia Repair, Tonsillectomy Additional Past Surgical History / Comment(s): Exploratory lap with lysis of adhesions, small bowel decompression, yamileth fundiplication, EGD, colonoscopies/benign polypectomies, T&A twice, skin cancer removals, Past Anesthesia/Blood Transfusion Reactions: No Reported Reaction Past Psychological History: No Psychological Hx Reported Smoking Status: Never smoker Past Alcohol Use History: None Reported Past Drug Use History: None Reported - Past Family History Mother Family Medical History: Cancer, Diabetes Mellitus Additional Family Medical History / Comment(s): Emphysema, heart problems, COLON CANCER. Father Additional Family Medical History / Comment(s): COLON CA LIVER CA,MULTIPLE MYELOMA, bone cancer General Exam - General Exam Comments Initial Comments: Constitutional: NAD, AOX3, Pt has pleasant affect. HEENT: NC/AT, trachea midline, neck supple, no lymphadenopathy. Posterior pharynx non erythematous, without exudates. External ears appear normal, without discharge. Mucous membranes moist. Eyes PERRLA, EOM intact. There is no scleral icterus. No pallor noted. Cardiopulmonary: RRR, no murmurs, rubs or gallops, no JVD noted. Lungs CTAB in anterior and posterior diamond. No peripheral edema. Abdominal exam: Abdomen soft and mildly distended. Abdomen mildly tender to palpation in right lower quadrant, no other areas of abdominal tenderness.. Bowel sounds active in LLQ. No hepatosplenomegaly. No ecchymosis Neuro: CN II-XII grossly intact. No nuchal rigidity. No raccon eyes, no winters sign, no hemotympanum. No cervical spinal tenderness. MSK: No posterior calf tenderness bilaterally, homans sign negative bilaterally. Posterior tibialis and radial pulse +2 bilaterally. Sensation intact in upper and lower extremities. Full active ROM in upper and lower extremities, 5/5 stre gnth. Limitations: no limitations Course Vital Signs 10/30/18 10/30/18 16:24 18:53 Temperature 98.2 F Pulse Rate 74 68 Respiratory 18 18 Rate Blood Pressure 156/90 110/76 O2 Sat by Pulse 96 95 Oximetry Medical Decision Making - Medical Decision Making 63-year-old male patient with past medical history of recurrent small bowel obstruction and status post bowel resection [place] [address] gonzalez presents to ED with abdominal pain and bloating. Patient reports that this feels identical to small bowel obstructions in the past. Patient states that he currently has pain in his right lower quadrant region. Patient states that he last had a bowel movement approximately 4 AM this morning. Patient denies any nausea or vomiting. Patient states that he did pass flatus approximately 1 hour prior to evaluation. Patient denies any other complaints at this time, denies any chest pain or shortness of breath. Patient will signs stable, afebrile. Physical exam displayed: Abdomen soft and mildly distended. Abdomen mildly tender to palpation in right lower quadrant, no other areas of abdominal tenderness.. Bowel sounds active in LLQ. No hepatosplenomegaly. No ecchymosis. Laboratory investigations revealed nonpassive CBC, CMP. Lactate 1.1, lipase less than 10. UA displayed +[address] abdomen and pelvis displayed moderate small bowel infection. NG tube placed. Patient admitted to Dr. Lynn with medical consult. Pt NPO. Case disucssed with Dr. Stewart. - Lab Data Result diagrams: 10/30/18 16:59 10/30/18 16:45 Lab Results 10/30/18 10/30/18 10/30/18 Range/Units 16:45 16:45 16:59 WBC 8.8 (3.8-10.6) k/uL RBC 5.23 (4.30-5.90) m/uL Hgb 16.3 (13.0-17.5) gm/dL Hct 49.3 (39.0-53.0) % MCV 94.3 (80.0-100.0) fL MCH 31.1 (25.0-35.0) pg MCHC 33.0 (31.0-37.0) g/dL RDW 13.3 (11.5-15.5) % Plt Count 252 (150-450) k/uL Neutrophils % 67 % Lymphocytes % 18 % Monocytes % 7 % Eosinophils % 5 % Basophils % 1 % Neutrophils # 5.9 (1.3-7.7) k/uL Lymphocytes # 1.6 (1.0-4.8) k/uL Monocytes # 0.6 (0-1.0) k/uL Eosinophils # 0.4 (0-0.7) k/uL Basophils # 0.0 (0-0.2) k/uL Sodium 142 (137-145) mmol/L Potassium 4.0 (3.5-5.1) mmol/L Chloride 106 (98-107) mmol/L Carbon Dioxide 25 (22-30) mmol/L Anion Gap 11 mmol/L BUN 15 (9-20) mg/dL Creatinine 0.78 (0.66-1.25) mg/dL Est GFR (CKD-EPI)AfAm >90 (>60 ml/min/1.73 sqM) Est GFR (CKD-EPI)NonAf >90 (>60 ml/min/1.73 sqM) Glucose 100 H (74-99) mg/dL Plasma Lactic Acid Everett (0.7-2.0) mmol/L Calcium 9.5 (8.4-10.2) mg/dL Magnesium 2.3 (1.6-2.3) mg/dL Total Bilirubin 0.8 (0.2-1.3) mg/dL AST 35 (17-59) U/L ALT 49 (21-72) U/L Alkaline Phosphatase 70 (38-126) U/L Total Protein 7.4 (6.3-8.2) g/dL Albumin 4.6 (3.5-5.0) g/dL Amylase 36 (30-110) U/L Lipase <10 L (23-300) U/L Urine Color Urine Appearance (Clear) Urine pH (5.0-8.0) Ur Specific [place] (1.001-1.035) Urine Protein (Negative) Urine Glucose (UA) (Negative) Urine Ketones (Negative) Urine Blood (Negative) Urine Nitrite (Negative) Urine Bilirubin (Negative) Urine Urobilinogen (<2.0) mg/dL Ur Leukocyte Esterase (Negative) 10/30/18 10/30/18 Range/Units 19:00 19:12 WBC (3.8-10.6) k/uL RBC (4.30-5.90) m/uL Hgb (13.0-17.5) gm/dL Hct (39.0-53.0) % MCV (80.0-100.0) fL MCH (25.0-35.0) pg MCHC (31.0-37.0) g/dL RDW (11.5-15.5) % Plt Count (150-450) k/uL Neutrophils % % Lymphocytes % % Monocytes % % Eosinophils % % Basophils % % Neutrophils # (1.3-7.7) k/uL Lymphocytes # (1.0-4.8) k/uL Monocytes # (0-1.0) k/uL Eosinophils # (0-0.7) k/uL Basophils # (0-0.2) k/uL Sodium (137-145) mmol/L Potassium (3.5-5.1) mmol/L Chloride (98-107) mmol/L Carbon Dioxide (22-30) mmol/L Anion Gap mmol/L BUN (9-20) mg/dL Creatinine (0.66-1.25) mg/dL Est GFR (CKD-EPI)AfAm (>60 ml/min/1.73 sqM) Est GFR (CKD-EPI)NonAf (>60 ml/min/1.73 sqM) Glucose (74-99) mg/dL Plasma Lactic Acid [place] 1.1 (0.7-2.0) mmol/L Calcium (8.4-10.2) mg/dL Magnesium (1.6-2.3) mg/dL Total Bilirubin (0.2-1.3) mg/dL AST (17-59) U/L ALT (21-72) U/L Alkaline Phosphatase (38-126) U/L Total Protein (6.3-8.2) g/dL Albumin (3.5-5.0) g/dL Amylase (30-110) U/L Lipase (23-300) U/L Urine Color Yellow Urine Appearance Clear (Clear) Urine pH 5.5 (5.0-8.0) Ur Specific [place] 1.022 (1.001-1.035) Urine Protein Trace H (Negative) Urine Glucose (UA) Negative (Negative) Urine Ketones 1+ H (Negative) Urine Blood Negative (Negative) Urine Nitrite Negative (Negative) Urine Bilirubin Negative (Negative) Urine Urobilinogen <2.0 (<2.0) mg/dL Ur Leukocyte Esterase Negative (Negative) Disposition Clinical Impression: Small bowel obstruction Disposition: ADMITTED IP TO THIS [facility] Condition: Serious Is patient prescribed a controlled substance at d/c from ED?: No Referrals: Lurdes Swanson MD [Primary Care Provider] - 1-2 days
--- NOTE | 2018-10-30 20:31 | CT ---
EXAMINATION TYPE: CT abdomen pelvis w con DATE OF EXAM: 10/30/2018 COMPARISON: 10/30/2017 HISTORY: Right-sided abdominal pain CT DLP: 1518 mGycm Automated exposure control for dose reduction was used. TECHNIQUE: Helical acquisition of images was performed from the lung bases through the pelvis. CONTRAST: 100 mL Isovue-300 intravenously. FINDINGS: LUNG BASES: No acute findings, but coronary calcifications noted. LIVER/GB: No significant abnormality is appreciated. PANCREAS: No significant abnormality is seen. SPLEEN: No significant abnormality is seen. ADRENALS: No significant abnormality is seen. KIDNEYS: No significant abnormality is seen. Bilateral renal cysts noted, right greater than left. FREE AIR: No free air is visualized. RETROPERITONEAL ADENOPATHY: None visualized REPRODUCTIVE ORGANS: No significant abnormality is seen URINARY BLADDER: No significant abnormality is seen. PELVIC ADENOPATHY: None visualized. OSSEOUS STRUCTURES: No significant abnormality is seen. BOWEL: The colon shows innumerable sigmoid and descending colonic diverticula, without diverticuliti s. The colon is not dilated. The distal ileum is not dilated. However, the proximal and midileum and jejunum are dilated, with mil d distention of the duodenum and stomach. At the transition point there is no visible pathology. Ther efore, the etiology is likely adhesions. Minimal fluid in the dependent pelvis is seen in the periton eal cavity, likely physiologic. The ileum shows mild scattered mural thickening, but no mesenteric edematous change or pneumatosis or pneumoperitoneum. OTHER: No acute vascular findings. IMPRESSION: Moderate small bowel obstruction.
[2018-10-30] MEDS ORDERED: HYDROmorphone 1 MG/ML 1 ML SYRINGE IVP STA (21:30)
[2018-10-30] MEDS ORDERED: NALOXONE 0.4 MG/ML 1 ML VIAL IV PRN (21:55)
[2018-10-30] MEDS ORDERED: HYDROmorphone 1 MG/ML 1 ML SYRINGE IVP PRN (21:55)
[2018-10-30] MEDS: SODIUM CHLORIDE 0.9% 1,000 ML IV SCH (23:36)
--- NOTE | 2018-10-31 00:15 | XR ---
EXAM: XR Chest, 1 View CLINICAL HISTORY: ITS.REASON XR Reason: NG TUBE PLACEMENT TECHNIQUE: Frontal view of the chest. COMPARISON: Chest radiograph on 08/25/2017 FINDINGS: Hardware: Enteric tube courses past the diaphragm and out of the field of view. Lungs/pleura: Stable elevation/eventration of the right hemidiaphragm. No focal consolidation. No pleural effusion or pneumothorax. Heart/mediastinum: Normal. No cardiomegaly. Soft tissues: Unremarkable. Bones: No acute fracture. Degenerative changes of the acromioclavicular joints and spine Upper abdomen: Normal. IMPRESSION: Enteric tube courses past the diaphragm and out of the [id number]. No acute disease.
[2018-10-31 00:47] VITALS: BMI 29.2
[2018-10-31] MEDS: HYDROmorphone 1 MG/ML 1 ML SYRINGE IVP PRN ×5 (00:52→14:09)
[2018-10-31] MEDS: SODIUM CHLORIDE 0.9% 1,000 ML IV SCH ×3 (05:57→18:15)
[2018-10-31] MEDS ORDERED: ONDANSETRON 4 MG/2 ML VIAL IVP PRN (08:47)
--- NOTE | 2018-10-31 08:47 | P.GSHP ---
History of Present Illness H&P Date: 10/31/18 CHIEF COMPLAINT: Abdominal pain HISTORY OF PRESENT ILLNESS: The patient is a 63 year old male who presents as a new admission with history of multiple small bowel obstructions and small bowel resections in the past. Last event of bowel obstruction per [facility] records was 1 year ago in October 2017. He presents with less than 2 day history of acute onset periumbilical pain. He has nausea and vomiting with inability to pass flatus. Abdominal pain of crampy and intense nature, moderate to severe has resolved with nasogastric tube placement. He has started to pass flatus. His abdominal pain is now only a mild ache. PAST MEDICAL HISTORY: See list. PAST SURGICAL HISTORY: See list. MEDICATIONS: See list. ALLERGIES: See list. SOCIAL HISTORY: No illicit drug use FAMILY HISTORY: No reports of Crohn's disease or inflammatory bowel disease REVIEW OF ORGAN SYSTEMS: CONSTITUTIONAL: No fevers or chills. No recent weight loss. EYES: History of troubles with vision. No glasses. HEENT: No difficulties with hearing. No nosebleeds. No difficulty swallowing. RESPIRATORY: Past pneumonia. Denies any troubles with breathing or dyspnea on exertion. CARDIOVASCULAR: Denies any chest pain, palpitations, or recent heart attacks. GASTROINTESTINAL: Denies fatty food intolerance. Has change in bowel habits and gas bloat. GENITOURINARY: Denies any blood in urine. Has increased urinary frequency. NEUROLOGICAL: Denies any numbness or tingling along the distal extremities. No seizure disorders or headaches. MUSCULOSKELETAL: Has back pain, stiffness or joint arthritis. SKIN: Past t skin cancer. No rash. PSYCHIATRIC: Denies current depression or suicidal thoughts. ENDOCRINE: Denies current thyroid disorders. Denies any blood sugar glucose intolerance. HEME/LYMPHATIC: Denies any lumps and bumps around the neck. History of deep venous thrombosis. ALLERGY/IMMUNOLOGY: No immunoglobulin therapy. No immune deficiencies. BREAST: Denies current breast lumps, pain or nipple discharge. PHYSICAL EXAM: VITALS: Reviewed CONSTITUTIONAL: Well developed and in no acute distress. EYES: Conjuctivae without sclera icterus. Pupils are equally round and reactive to light. Extraocular movements grossly intact. HEAD, EARS, NOSE, THROAT: Moist buccal mucosa. Head is atraumatic, norm ocephalic. Hears conversational speech. No nasal drainage. Dry mouth NECK: Supple. No JV distention. No thyroidomegaly. RESPIRATORY: Non-labored respirations and equal bilateral excursions. No gross wheezes. CARDIOVASCULAR: Regular rate and rhythm. Palpable 2+ radial pulses. ABDOMEN: NGT tube light yellow bilious. Soft, no peritonitis. Non-tender with moderate palpation. LYMPH: No neck lymphadenopathy. No axillary lymphadenopathy. MUSCULOSKELETAL: Range of motion bilateral upper extremities within normal limits. Nail and fingers with good capillary refill. SKIN: Warm and well perfused with good skin turgor. NEUROLOGIC: Cranial nerves I through XII grossly intact. Sensation upper and extremities intact. No focal or lateralizing signs. PSYCH: Appropriate affect. Alert and oriented to person, place and time. Displays appropriate insight. CLINCAL LABS: Reviewed. WBC count normal RADIOLOGY: Report reviewed without free air identified IMAGING: Independently reviewed with dilated small bowel chances important likely in the right lower quadrant RECORDS: previous old records reviewed ASSESSMENT: 1. Small bowel obstruction PLAN: 1. Clinically he is improving. 2. Start ice chips. 3. IV fluid hydration for dehydration, 2-liters normal saline 4. Will advance diet once abdominal pain completely resolves 5. Disposition, anticipated hospitalization beyond 2 days. 6. Medicine consultation for medical management. 7. SCDs for DVT prophylaxis 8. I have started chemical prophylaxis with heparin 9. Ambulated QID for DVT prevention 10. Zofran added for nausea 11. Incentive spirometry for pneumonia prevention Past Medical History Past Medical History: Cancer, Deep Vein Thrombosis (DVT), GERD/Reflux, Hyperlipidemia, Pneumonia Additional Past Medical History / Comment(s): SBOs, L lower leg DVT, blood clot behind R eye, basal skin cancer with removals, pneumonia with SIRS, sinus problems, low back pain, L foot plantar fascitis, urine flow issues at times, past hiatal hernia-(sx) History of Any Multi-Drug Resistant Organisms: C-DIFF Date of last positivie culture/infection: 2009 MDRO Source:: stool Past Surgical History: Adenoidectomy, Bowel Resection, Cholecystectomy, Hernia Repair, Tonsillectomy Additional Past Surgical History / Comment(s): Exploratory lap with lysis of adhesions, small bowel decompression, yamileth fundiplication, EGD, colonoscopies/benign polypectomies, T&A twice, skin cancer removals, Past Anesthesia/Blood Transfusion Reactions: No Reported Reaction Past Psychological History: No Psychological Hx Reported Additional Psychological History / Comment(s): PT LIVES WITH HIS GILBERTO, 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 Smoking Status: Never smoker Past Alcohol Use History: None Reported Additional Past Alcohol Use History / Comment(s): Patient is a lifelong nonsmoker. He does have medical marijuana but states he hasn't smoked marijuana in a very long time (over a year). He denies any street drug use. He denies any alcohol use. He is currently living at home with his . 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 He has been in the [employer] and is unknown if he has asbestos EXPOSURE. . No recent travel. Past Drug Use History: None Reported Additional Drug Use History / Comment(s): Patient stated has'nt used marijuana in a while in a while - Past Family History Mother Family Medical History: Cancer, Diabetes Mellitus Additional Family Medical History / Comment(s): Emphysema, heart problems, COLON CANCER. Father Additional Family Medical History / Comment(s): COLON CA LIVER CA,MULTIPLE MYELOMA, bone cancer Medications and Allergies Home Medications Medication Instructions Recorded Confirmed Type Ascorbic Acid [Vitamin C] 1,000 mg PO QID 04/04/15 10/30/18 History Calcium Carbonate/Vitamin D3 2 tab PO BID 04/04/15 10/30/18 History [Calcium 600-Vit D3 400 Tablet] Multivitamins, Thera [Multivitamin 2 tab PO HS 04/04/15 10/30/18 History (formulary)] Fish Oil/Dha/Epa [Fish Oil 1,200 1 cap PO BID 05/26/16 10/30/18 History mg Fish Oil] Folic Acid 0.8 mg PO HS 05/26/16 10/30/18 History Selenium 200 mcg PO HS 08/25/17 10/30/18 History Aspirin 325 mg PO DAILY 03/30/18 10/30/18 History Sennosides/Docusate Sodium [Minerva 1 tab PO BID 03/30/18 10/30/18 History Colace] Allergies Allergy/AdvReac Type Severity Reaction Status Date / Time morphine Allergy Rash/Hives Verified 10/30/18 21:37 Penicillins Allergy Rash/Hives, Verified 10/30/18 21:37 WHEEZING Surgical - Exam Vital Signs Temp Pulse Resp BP Pulse Ox 98.2 F 74 18 156/90 96 10/30/18 16:24 10/30/18 16:24 10/30/18 16:24 10/30/18 16:24 10/30/18 16:24 Results - Labs 10/30/18 16:59 10/30/18 16:45 Abnormal Lab Results - Last 24 Hours (Table) 10/30/18 10/30/18 Range/Units 16:45 19:00 Glucose 100 H (74-99) mg/dL Lipase <10 L (23-300) U/L Urine Protein Trace H (Negative) Urine Ketones 1+ H (Negative) Diabetes panel 10/30/18 Range/Units 16:45 Sodium 142 (137-145) mmol/L Potassium 4.0 (3.5-5.1) mmol/L Chloride 106 (98-107) mmol/L Carbon Dioxide 25 (22-30) mmol/L BUN 15 (9-20) mg/dL Creatinine 0.78 (0.66-1.25) mg/dL Glucose 100 H (74-99) mg/dL Calcium 9.5 (8.4-10.2) mg/dL AST 35 (17-59) U/L ALT 49 (21-72) U/L Alkaline Phosphatase 70 (38-126) U/L Total Protein 7.4 (6.3-8.2) g/dL Albumin 4.6 (3.5-5.0) g/dL Calcium panel 10/30/18 Range/Units 16:45 Calcium 9.5 (8.4-10.2) mg/dL Albumin 4.6 (3.5-5.0) g/dL Pituitary panel 10/30/18 Range/Units 16:45 Sodium 142 (137-145) mmol/L Potassium 4.0 (3.5-5.1) mmol/L Chloride 106 (98-107) mmol/L Carbon Dioxide 25 (22-30) mmol/L BUN 15 (9-20) mg/dL Creatinine 0.78 (0.66-1.25) mg/dL Glucose 100 H (74-99) mg/dL Calcium 9.5 (8.4-10.2) mg/dL Adrenal panel 10/30/18 Range/Units 16:45 Sodium 142 (137-145) mmol/L Potassium 4.0 (3.5-5.1) mmol/L Chloride 106 (98-107) mmol/L Carbon Dioxide 25 (22-30) mmol/L BUN 15 (9-20) mg/dL Creatinine 0.78 (0.66-1.25) mg/dL Glucose 100 H (74-99) mg/dL Calcium 9.5 (8.4-10.2) mg/dL Total Bilirubin 0.8 (0.2-1.3) mg/dL AST 35 (17-59) U/L ALT 49 (21-72) U/L Alkaline Phosphatase 70 (38-126) U/L Total Protein 7.4 (6.3-8.2) g/dL Albumin 4.6 (3.5-5.0) g/dL
[2018-10-31] MEDS: HEPARIN SODIUM,PORCINE 5,000 UNIT/ML 1 ML VIAL SQ SCH ×2 (09:16→20:01)
--- NOTE | 2018-10-31 18:37 | P.HPIM ---
History of Present Illness H&P Date: 10/31/18 Chief Complaint: Abdominal pain Saw De Anda is a 63-year-old male who presented to [facility] emergency room with a chief complaint of abdominal pain, patient denies any nausea or vomiting denies any diarrhea, he had previous episodes of small bowel obstruction on and off requiring admission and conservative management with NG tube and nothing by mouth, he also had 1 episode of bowel obstruction requiring surgery about [address] Fu. Past Medical History Past Medical History: Cancer, Deep Vein Thrombosis (DVT), GERD/Reflux, Hyperlipidemia, Pneumonia Additional Past Medical History / Comment(s): SBOs, L lower leg DVT, blood clot behind R eye, basal skin cancer with removals, pneumonia with SIRS, sinus problems, low back pain, L foot plantar fascitis, urine flow issues at times, past hiatal hernia-(sx) History of Any Multi-Drug Resistant Organisms: C-DIFF Date of last positivie culture/infection: 2009 MDRO Source:: stool Past Surgical History: Adenoidectomy, Bowel Resection, Cholecystectomy, Hernia Repair, Tonsillectomy Additional Past Surgical History / Comment(s): Exploratory lap with lysis of adhesions, small bowel decompression, yamileth fundiplication, EGD, colonoscopies/benign polypectomies, T&A twice, skin cancer removals, Past Anesthesia/Blood Transfusion Reactions: No Reported Reaction Past Psychological History: No Psychological Hx Reported Additional Psychological History / Comment(s): PT LIVES WITH HIS GILBERTO, 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 Smoking Status: Never smoker Past Alcohol Use History: None Reported Additional Past Alcohol Use History / Comment(s): Patient is a lifelong nonsmoke r. He does have medical marijuana but states he hasn't smoked marijuana in a very long time (over a year). He denies any street drug use. He denies any alcohol use. He is currently living at home with his . 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 He has been in the [employer] and is unknown if he has asbestos EXPOSURE. . No recent travel. Past Drug Use History: None Reported Additional Drug Use History / Comment(s): Patient stated has'nt used marijuana in a while in a while - Past Family History Mother Family Medical History: Cancer, Diabetes Mellitus Additional Family Medical History / Comment(s): Emphysema, heart problems, COLON CANCER. Father Additional Family Medical History / Comment(s): COLON CA LIVER CA,MULTIPLE MYELOMA, bone cancer Medications and Allergies Home Medications Medication Instructions Recorded Confirmed Type Ascorbic Acid [Vitamin C] 1,000 mg PO QID 04/04/15 10/30/18 History Calcium Carbonate/Vitamin D3 2 tab PO BID 04/04/15 10/30/18 History [Calcium 600-Vit D3 400 Tablet] Multivitamins, Thera [Multivitamin 2 tab PO HS 04/04/15 10/30/18 History (formulary)] Fish Oil/Dha/Epa [Fish Oil 1,200 1 cap PO BID 05/26/16 10/30/18 History mg Fish Oil] Folic Acid 0.8 mg PO HS 05/26/16 10/30/18 History Selenium 200 mcg PO HS 08/25/17 10/30/18 History Aspirin 325 mg PO DAILY 03/30/18 10/30/18 History Sennosides/Docusate Sodium [Minerva 1 tab PO BID 03/30/18 10/30/18 History Colace] Allergies Allergy/AdvReac Type Severity Reaction Status Date / Time morphine Allergy Rash/Hives Verified 10/30/18 21:37 Penicillins Allergy Rash/Hives, Verified 10/30/18 21:37 WHEEZING Physical Exam Vitals: Vital Signs Temp Pulse Pulse Resp BP BP Pulse Ox 10/31/18 12:25 97.6 F 53 L 16 96/50 92 L 10/31/18 04:58 97.5 F L 62 18 107/72 93 L 10/31/18 00:39 97.7 F 66 20 129/84 95 10/30/18 22:25 72 18 104/71 96 10/30/18 18:53 68 18 110/76 95 Intake and Output 10/31/18 10/31/18 10/31/18 06:59 14:59 22:59 Intake Total 900 Output Total 450 350 Balance 450 -350 Intake: Intake, IV Titration 900 Amount Sodium Chloride 0.9% 1, 900 000 ml @ 150 mls/hr IV . [id number] [facility] Rx#:[id number] Output: Gastric Drainage 150 350 Urine 300 Other: Voiding Method Toilet Toilet Toilet # Voids 1 2 # Bowel Movements 0 In general patient is alert and oriented 3 in no apparent distress HEENT head normocephalic and atraumatic Neck is supple no JVD no goiter no lymphadenopathy Chest exam reveals a few scattered crackles no wheezing Cardiac exam reveals regular heart sounds no gallops no murmurs Abdomen is soft nontender no organomegaly with normal bowel sounds Extremity exam reveals no edema no cyanosis or clubbing Neurological examination reveals no gross focal deficit Results CBC & Chem 7: 10/30/18 16:59 10/30/18 16:45 Labs: Abnormal Lab Results - Last 24 Hours (Table) 10/30/18 Range/Units 19:00 Urine Protein Trace H (Negative) Urine Ketones 1+ H (Negative) Thrombosis Risk Factor Assmnt - Choose All That Apply Each Factor Represents 1 point: Obesity (BMI >25) Other Risk Factors: Yes Each Risk Factor Represents 2 Points: Age 61-74 years Each Risk Factor Represents 3 Points: History of DVT/PE Other congenital or acquired thrombophilia - If yes, enter type in comment: No Thrombosis Risk Factor Assessment Total Risk Factor Score: 6 Thrombosis Risk Factor Assessment Level: High Risk Assessment and Plan Plan: #1 abdominal pain with radiographic evidence of partial small bowel obstruction #2 previous episodes of bowel obstruction, with one episode requiring surgery about 4 years ago #3 patient otherwise denies any medical problems At this time will continue was current management with NG tube nothing by mouth and IV fluid Will monitor clinical progress and surgical input Check labs daily Patient is on subcu heparin for DVT prophylaxis, we will add IV Protonix for GI prophylaxis
[2018-11-01] MEDS: SODIUM CHLORIDE 0.9% 1,000 ML IV SCH ×2 (00:10→07:01)
[2018-11-01] MEDS: HYDROmorphone 1 MG/ML 1 ML SYRINGE IVP PRN (07:01)
[2018-11-01] MEDS: HEPARIN SODIUM,PORCINE 5,000 UNIT/ML 1 ML VIAL SQ SCH (08:48)
[2018-11-01 09:33] LABS: Basophils % (A) 0 %; Eosinophils # (A) 0.2 k/uL (0-0.7); Eosinophils % (A) 3 %; HCT 41.5 % (39.0-53.0); HGB 13.7 gm/dL (13.0-17.5); Lymphocytes # (A) 1.4 k/uL (1.0-4.8); Lymphocytes % (A) 19 %; MCH 31.1 pg (25.0-35.0); Mean Platelet Volume 6.9; Monocytes # (A) 0.4 k/uL (0-1.0); Monocytes % (A) 6 %; Neutrophils # (A) 4.8 k/uL (1.3-7.7); Neutrophils % (A) 69 %; Platelet Count 234 k/uL (150-450); RBC 4.41 m/uL (4.30-5.90); RDW 13.2 % (11.5-15.5)
[2018-11-01 09:57] LABS: ALT 41 U/L (21-72); AST 29 U/L (17-59); African American GFR (CKD) >90 (>60 ml/min/1.73 sqM); Albumin 3.5 g/dL (3.5-5.0); Alkaline Phosphatase 55 U/L (38-126); Anion Gap 11 mmol/L; Blood Urea Nitrogen 8 mg/dL (9-20); Calcium 8.1 mg/dL (8.4-10.2); Carbon Dioxide 21 mmol/L (22-30); Chloride 108 mmol/L (98-107); Glucose 72 mg/dL (74-99); Potassium 3.8 mmol/L (3.5-5.1); Sodium 140 mmol/L (137-145); Total Bilirubin 0.6 mg/dL (0.2-1.3); Total Protein 5.9 g/dL (6.3-8.2)
[2018-11-01 10:28] LABS: Glucose,Whole Blood 77 mg/dL (75-99)
[2018-11-01] MEDS ORDERED: DEXTROSE 5%-0.45% NACL 1,000 ML IV SCH (10:30)
--- NOTE | 2018-11-01 10:35 | P.DS ---
Providers Date of admission: 10/30/18 23:18 Expected date of discharge: 11/01/18 Attending physician: Trinh Lynn Consults: 10/30/18 21:55 Consult Physician Stat Consulting Provider: Cesar Ferrera Consult Reason/Comments: medical management, small bowel obstruction Do you want consulting provider notified?: Yes Primary care physician: Lurdes Swanson - Discharge Diagnosis(es) (1) Small bowel obstruction Current Visit: Yes Status: Acute (2) Abdominal pain Current Visit: No Status: Acute Hospital Course: CHIEF COMPLAINT: Abdominal pain HISTORY OF PRESENT ILLNESS: The patient is a 63 year old male who presented with small bowel obstruction. He is passing flatus. He had bowel movement. He is ambulating. Abdominal pain resolved. ROS: No fevers or chills. No chest pain. No productive sputum. PHYSICAL EXAM: VITALS: Reviewed CONSTITUTIONAL: Well developed and in no acute distress. EYES: Conjuctivae without sclera icterus. Pupils are equally round and reactive to light. Extraocular movements grossly intact. HEAD, EARS, NOSE, THROAT: Moist buccal mucosa. Head is atraumatic, normocephalic. Hears conversational speech. No nasal drainage. NECK: Supple. No JV distention. No thyroidomegaly. RESPIRATORY: Non-labored respirations and equal bilateral excursions. No gross wheezes. CARDIOVASCULAR: Regular rate and rhythm. Palpable 2+ radial pulses. ABDOMEN: Soft. Non-tender with moderate palpation. LYMPH: No neck lymphadenopathy. No axillary lymphadenopathy. MUSCULOSKELETAL: Range of motion bilateral upper extremities within normal limits. Nail and fingers with good capillary refill. SKIN: Warm and well perfused with good skin turgor. NEUROLOGIC: Cranial nerves I through XII grossly intact. Sensation upper and extremities intact. No focal or lateralizing signs. PSYCH: Appropriate affect. Alert and oriented to person, place and time. Displays appropriate insight. CLINCAL LABS: Reviewed. WBC count normal ASSESSMENT: 1. Small bowel obstruction PLAN: 1. NGT was discontinued with start of liquid diet. 2. Patient was tentatively discharged pending tolerating diet. 3. Return to work November 03 without restrictions. Pertinent Studies: CT of abdomen and pelvis demonstrated small bowel obstruction Patient Condition at Discharge: Stable Plan - Discharge Summary Discharge Rx Participant: No New Discharge Prescriptions: Continue Multivitamins, Thera [Multivitamin (formulary)] 2 tab PO HS Calcium Carbonate/Vitamin D3 [Calcium 600-Vit D3 400 Tablet] 2 tab PO BID Ascorbic Acid [Vitamin C] 1,000 mg PO QID Folic Acid 0.8 mg PO HS Fish Oil/Dha/Epa [Fish Oil 1,200 mg Fish Oil] 1 cap PO BID Selenium 200 mcg PO HS Sennosides/Docusate Sodium [Minerva Colace] 1 tab PO BID Aspirin 325 mg PO DAILY Discharge Medication List Ascorbic Acid [Vitamin C] 1,000 mg PO QID 04/04/15 [History] Calcium Carbonate/Vitamin D3 [Calcium 600-Vit D3 400 Tablet] 2 tab PO BID 04/04/15 [History] Multivitamins, Thera [Multivitamin (formulary)] 2 tab PO HS 04/04/15 [History] Fish Oil/Dha/Epa [Fish Oil 1,200 mg Fish Oil] 1 cap PO BID 05/26/16 [History] Folic Acid 0.8 mg PO HS 05/26/16 [History] Selenium 200 mcg PO HS 08/25/17 [History] Aspirin 325 mg PO DAILY 03/30/18 [History] Sennosides/Docusate Sodium [Minerva Colace] 1 tab PO BID 03/30/18 [History] Follow up Appointment(s)/Referral(s): Lurdes Swanson MD [Primary Care Provider] - 1-2 days Trinh Lynn MD [STAFF PHYSICIAN] - As Needed Patient Instructions/Handouts: Soft Diet (DC), Bowel Obstruction (DC) Activity/Diet/Wound Care/Special Instructions: Diet as tolerated. MAY RETURN TO WORK FridayNOVEMBER 03, WITHOUT RESTRICTIONS. Discharge Disposition: HOME SELF-CARE
[2018-11-01 14:31] VITALS: BP 130/83; PULSE 67; RESP 16; TEMP 98.5
--- NOTE | 2018-11-01 14:37 | P.PN ---
Subjective Progress Note Date: 11/01/18 Saw De Anda is a 63-year-old male who presented to [facility] emergency room with a chief complaint of abdominal pain, patient denies any nausea or vomiting denies any diarrhea, he had previous episodes of small bowel obstruction on and off requiring admission and conservative management with NG tube and nothing by mouth, he also had 1 episode of bowel obstruction requiring surgery about [address] Fu. On 11/01/2018 patient was seen and examined on the medical floor he is alert and oriented 3 in no apparent distress, he denies any complaints at this time there is no fever or chills no headache or dizziness no chest pain no shortness of breath no cough no nausea or vomiting no abdominal pain no diarrhea and no urinary symptoms, NG tube has been removed this morning Objective - Vital Signs Vital signs: Vital Signs Temp 98.5 F 11/01/18 13:30 Pulse 67 11/01/18 13:30 Resp 16 11/01/18 13:30 BP 130/83 11/01/18 13:30 Pulse Ox 96 11/01/18 13:30 Intake & Output 10/31/18 11/01/18 11/01/18 18:59 06:59 18:59 Intake Total 0 600 Output Total 350 1000 150 Balance -350 -1000 450 Intake: Oral 0 600 Output: Gastric Drainage 350 300 150 Urine 700 Other: Voiding Method Toilet Toilet Toilet # Voids 2 3 2 # Bowel Movements 0 0 - Exam In general patient is alert and oriented 3 in no apparent distress HEENT head normocephalic and atraumatic Neck is supple no JVD no goiter no lymphadenopathy Chest exam reveals a few scattered crackles no wheezing Cardiac exam reveals regular heart sounds no gallops no murmurs Abdomen is soft nontender no organomegaly with normal bowel sounds Extremity exam reveals no edema no cyanosis or clubbing Neurological examination reveals no gross focal deficit - Labs CBC & Chem 7: 11/01/18 07:54 11/01/18 07:54 Labs: Abnormal Lab Results - Last 24 Hours (Table) 11/01/18 Range/Units 07:54 Chloride 108 H (98-107) mmol/L Carbon Dioxide 21 L (22-30) mmol/L BUN 8 L (9-20) mg/dL Creatinine 0.63 L (0.66-1.25) mg/dL Glucose 72 L (74-99) mg/dL Calcium 8.1 L (8.4-10.2) mg/dL Total Protein 5.9 L (6.3-8.2) g/dL Assessment and Plan Plan: #1 abdominal pain with radiographic evidence of partial small bowel obstruction #2 previous episodes of bowel obstruction, with one episode requiring surgery about 4 years ago #3 patient otherwise denies any medical problems #4 Patient is on subcu heparin for DVT prophylaxis, we will add IV Protonix for GI prophylaxis Patient improved significantly since yesterday NG tube has been removed If patient able to tolerate diet possible discharge to home today
== END 2018-11-01 18:15 | disposition home or self-care (01) | DRG 390 ==
LOC: EC 15:25 → 4MS4W 23:18
PROVIDERS: ADMIT Surgery Plastic and Reconstructive Surgery; ATTEND Surgery Plastic and Reconstructive Surgery
PROC: 0D9670Z Drainage of Stomach with Drainage Device, Via Natural or Artificial Opening (ICD-10-PCS; principal; 2018-10-30)
DX: K56.600 Partial intestinal obstruction, unspecified as to cause (principal); E86.0 Dehydration; E78.5 Hyperlipidemia, unspecified; K21.9 Gastro-esophageal reflux disease without esophagitis; M72.2 Plantar fascial fibromatosis; M54.5 Low back pain; Z79.82 Long term (current) use of aspirin; Z79.899 Other long term (current) drug therapy; Z86.718 Personal history of other venous thrombosis and embolism; Z86.19 Personal history of other infectious and parasitic diseases; Z85.828 Personal history of other malignant neoplasm of skin; Z87.01 Personal history of pneumonia (recurrent); Z90.49 Acquired absence of other specified parts of digestive tract; Z98.890 Other specified postprocedural states; Z86.010 Personal history of colon polyps; Z88.5 Allergy status to narcotic agent; Z88.0 Allergy status to penicillin; Z83.3 Family history of diabetes mellitus; Z82.5 Family history of asthma and other chronic lower respiratory diseases; Z80.0 Family history of malignant neoplasm of digestive organs; Z80.7 Family history of other malignant neoplasms of lymphoid, hematopoietic and related tissues; Z80.8 Family history of malignant neoplasm of other organs or systems
CPT/HCPCS: 36415; 74018; 74177; 80053; 81003; 82150; 83605; 83690; 83735; 85025; 96361; 96374; 96376; 99285

== ENCOUNTER 2018-11-05 19:02 | Inpatient (IN) | payer MEDICARE, OTHER ==
[2018-11-05] MEDS ORDERED: ONDANSETRON 4 MG/2 ML VIAL IVP STA (19:16)
[2018-11-05] MEDS ORDERED: SODIUM CHLORIDE 0.9% 1,000 ML IV STA ×2 (19:16)
[2018-11-05] MEDS ORDERED: HYDROmorphone 0.5 MG/0.5 ML SYRINGE IVP STA (19:16)
--- NOTE | 2018-11-05 19:31 | ED ---
Abdominal Pain HPI - General Chief Complaint: Abdominal Pain Stated Complaint: bowel obstruction Time Seen by Provider: 11/05/18 19:15 Source: patient, RN notes reviewed, old records reviewed Mode of arrival: ambulatory Limitations: no limitations - History of Present Illness Initial Comments: This is a 63-year-old male to ER for evaluation today. Patient does say for symptoms of recurrent bowel obstruction. Patient has had multiple ultrasounds in the recent past. To recent hospital admissions. Positive nausea no active vomiting currently. All over last was yesterday. MD Complaint: abdominal pain -: days(s) Location: diffuse, epigastric Radiation: epigastric Migration to: no migration Severity: mild Severity scale (1-10): 5 Quality: aching Consistency: constant Improves With: nothing Worsens With: nothing Associated Symptoms: nausea - Related Data Home Medications Medication Instructions Recorded Confirmed Ascorbic Acid [Vitamin C] 1,000 mg PO QID 04/04/15 11/05/18 Calcium Carbonate/Vitamin D3 2 tab PO BID 04/04/15 11/05/18 [Calcium 600-Vit D3 400 Tablet] Multivitamins, Thera [Multivitamin 2 tab PO HS 04/04/15 11/05/18 (formulary)] Fish Oil/Dha/Epa [Fish Oil 1,200 1 cap PO BID 05/26/16 11/05/18 mg Fish Oil] Folic Acid 0.8 mg PO HS 05/26/16 11/05/18 Selenium 200 mcg PO HS 08/25/17 11/05/18 Aspirin 325 mg PO DAILY 03/30/18 11/05/18 Sennosides/Docusate Sodium [Minerva 1 tab PO BID 03/30/18 11/05/18 Colace] Allergies Allergy/AdvReac Type Severity Reaction Status Date / Time morphine Allergy Rash/Hives Verified 11/05/18 19:31 Penicillins Allergy Rash/Hives, Verified 11/05/18 19:31 WHEEZING Review of Systems ROS Statement: Those systems with pertinent positive or pertinent negative responses have been documented in the HPI. ROS Other: All systems not noted in ROS Statement are negative. Past Medical History Past Medical History: Cancer, Deep Vein Thrombosis (DVT), GERD/Reflux, Hyperlipidemia, Pneumonia Additional Past Medical History / Comment(s): SBOs, L lower leg DVT, blood clot behind R eye, basal skin cancer with removals, pneumonia with SIRS, sinus problems, low back pain, L foot plantar fascitis, urine flow issues at times, past hiatal hernia-(sx) History of Any Multi-Drug Resistant Organisms: C-DIFF Date of last positivie culture/infection: 2009 MDRO Source:: stool Past Surgical History: Adenoidectomy, Bowel Resection, Cholecystectomy, Hernia Repair, Tonsillectomy Additional Past Surgical History / Comment(s): Exploratory lap with lysis of adhesions, small bowel decompression, yamileth fundiplication, EGD, colonoscopies/benign polypectomies, T&A twice, skin cancer removals, Past Anesthesia/Blood Transfusion Reactions: No Reported Reaction Past Psychological History: No Psychological Hx Reported Smoking Status: Never smoker Past Alcohol Use History: None Reported Past Drug Use History: None Reported - Past Family History Mother Family Medical History: Cancer, Diabetes Mellitus Additional Family Medical History / Comment(s): Emphysema, heart problems, COLON CANCER. Father Additional Family Medical History / Comment(s): COLON CA LIVER CA,MULTIPLE MYELOMA, bone cancer General Exam Limitations: no limitations General appearance: alert, in no apparent distress Head exam: Present: atraumatic, normocephalic, normal inspection Eye exam: Present: normal appearance, PERRL, EOMI. Absent: scleral icterus, conjunctival injection, periorbital swelling ENT exam: Present: normal exam, mucous membranes moist Neck exam: Present: normal inspection. Absent: tenderness, meningismus, lymphadenopathy Respiratory exam: Present: normal lung sounds bilaterally. Absent: respiratory distress, wheezes, rales, rhonchi, stridor Cardiovascular Exam: Present: regular rate, normal rhythm, normal heart sounds. Absent: systolic murmur, diastolic murmur, rubs, gallop, clicks GI/Abdominal exam: Present: soft, distended, tenderness, normal bowel sounds. Absent: guarding, rebound, rigid Extremities exam: Present: normal inspection, full ROM, normal capillary refill. Absent: tenderness, pedal edema, joint swelling, calf tenderness Back exam: Present: normal inspection Neurological exam: Present: alert, oriented X3, CN II-XII intact Psychiatric exam: Present: normal affect, normal mood Skin exam: Present: warm, dry, intact, normal color. Absent: rash Course Vital Signs 11/05/18 11/05/18 11/05/18 19:10 20:39 21:11 Temperature 98.5 F 98.6 F Pulse Rate 74 68 71 Respiratory 20 18 18 Rate Blood Pressure 131/84 108/71 110/81 O2 Sat by Pulse 96 97 98 Oximetry - Reevaluation(s) Reevaluation #1: Medical record is reviewed as well as to prior inpatient hospitalizations Patient repeatedly asking for pain medication Patient has adequate pain control currently. Medical Decision Making - Medical Decision Making 63 male the ER with recurrent bowel obstruction, patient be admitted for surgical evaluation and treatment - Lab Data Result diagrams: 11/07/18 07:16 11/07/18 07:16 Lab Results 11/05/18 11/05/18 11/05/18 Range/Units 19:31 19:31 19:31 WBC 9.0 (3.8-10.6) k/uL RBC 4.68 (4.30-5.90) m/uL Hgb 14.5 (13.0-17.5) gm/dL Hct 43.3 (39.0-53.0) % MCV 92.5 (80.0-100.0) fL MCH 30.9 (25.0-35.0) pg MCHC 33.4 (31.0-37.0) g/dL RDW 13.3 (11.5-15.5) % Plt Count 258 (150-450) k/uL Neutrophils % 65 % Lymphocytes % 21 % Monocytes % 6 % Eosinophils % 4 % Basophils % 0 % Neutrophils # 5.8 (1.3-7.7) k/uL Lymphocytes # 1.9 (1.0-4.8) k/uL Monocytes # 0.6 (0-1.0) k/uL Eosinophils # 0.3 (0-0.7) k/uL Basophils # 0.0 (0-0.2) k/uL Sodium 139 (137-145) mmol/L Potassium 4.7 (3.5-5.1) mmol/L Chloride 105 (98-107) mmol/L Carbon Dioxide 26 (22-30) mmol/L Anion Gap 8 mmol/L BUN 13 (9-20) mg/dL Creatinine 0.64 L (0.66-1.25) mg/dL Est GFR (CKD-EPI)AfAm >90 (>60 ml/min/1.73 sqM) Est GFR (CKD-EPI)NonAf >90 (>60 ml/min/1.73 sqM) Glucose 92 (74-99) mg/dL Plasma Lactic Acid [place] 0.9 (0.7-2.0) mmol/L Calcium 10.0 (8.4-10.2) mg/dL Total Bilirubin 0.4 (0.2-1.3) mg/dL AST 41 (17-59) U/L ALT 40 (21-72) U/L Alkaline Phosphatase 63 (38-126) U/L Total Protein 6.9 (6.3-8.2) g/dL Albumin 4.2 (3.5-5.0) g/dL Amylase 39 (30-110) U/L Lipase 17 L (23-300) U/L Urine Color Urine Appearance (Clear) Urine pH (5.0-8.0) Ur Specific [place] (1.001-1.035) Urine Protein (Negative) Urine Glucose (UA) (Negative) Urine Ketones (Negative) Urine Blood (Negative) Urine Nitrite (Negative) Urine Bilirubin (Negative) Urine Urobilinogen (<2.0) mg/dL Ur Leukocyte Esterase (Negative) 11/05/18 Range/Units 19:45 WBC (3.8-10.6) k/uL RBC (4.30-5.90) m/uL Hgb (13.0-17.5) gm/dL Hct (39.0-53.0) % MCV (80.0-100.0) fL MCH (25.0-35.0) pg MCHC (31.0-37.0) g/dL RDW (11.5-15.5) % Plt Count (150-450) k/uL Neutrophils % % Lymphocytes % % Monocytes % % Eosinophils % % Basophils % % Neutrophils # (1.3-7.7) k/uL Lymphocytes # (1.0-4.8) k/uL Monocytes # (0-1.0) k/uL Eosinophils # (0-0.7) k/uL Basophils # (0-0.2) k/uL Sodium (137-145) mmol/L Potassium (3.5-5.1) mmol/L Chloride (98-107) mmol/L Carbon Dioxide (22-30) mmol/L Anion Gap mmol/L BUN (9-20) mg/dL Creatinine (0.66-1.25) mg/dL Est GFR (CKD-EPI)AfAm (>60 ml/min/1.73 sqM) Est GFR (CKD-EPI)NonAf (>60 ml/min/1.73 sqM) Glucose (74-99) mg/dL Plasma Lactic Acid [place] (0.7-2.0) mmol/L Calcium (8.4-10.2) mg/dL Total Bilirubin (0.2-1.3) mg/dL AST (17-59) U/L ALT (21-72) U/L Alkaline Phosphatase (38-126) U/L Total Protein (6.3-8.2) g/dL Albumin (3.5-5.0) g/dL Amylase (30-110) U/L Lipase (23-300) U/L Urine Color Light Yellow Urine Appearance Clear (Clear) Urine pH 5.5 (5.0-8.0) Ur Specific [place] 1.007 (1.001-1.035) Urine Protein Negative (Negative) Urine Glucose (UA) Negative (Negative) Urine Ketones Negative (Negative) Urine Blood Negative (Negative) Urine Nitrite Negative (Negative) Urine Bilirubin Negative (Negative) Urine Urobilinogen <2.0 (<2.0) mg/dL Ur Leukocyte Esterase Negative (Negative) - Radiology Data Radiology results: report reviewed (X-ray KUB is positive for SBO), image reviewed Disposition Clinical Impression: Small bowel obstruction Disposition: ADMITTED IP TO THIS [facility] Condition: Fair Is patient prescribed a controlled substance at d/c from ED?: No
[2018-11-05 19:49] LABS: Basophils % (A) 0 %; Eosinophils # (A) 0.3 k/uL (0-0.7); Eosinophils % (A) 4 %; HCT 43.3 % (39.0-53.0); HGB 14.5 gm/dL (13.0-17.5); Lymphocytes # (A) 1.9 k/uL (1.0-4.8); Lymphocytes % (A) 21 %; MCH 30.9 pg (25.0-35.0); MCHC 33.4 g/dL (31.0-37.0); MCV 92.5 fL (80.0-100.0); Mean Platelet Volume 7.2; Monocytes # (A) 0.6 k/uL (0-1.0); Monocytes % (A) 6 %; Neutrophils # (A) 5.8 k/uL (1.3-7.7); Neutrophils % (A) 65 %; Platelet Count 258 k/uL (150-450); RBC 4.68 m/uL (4.30-5.90); RDW 13.3 % (11.5-15.5)
--- NOTE | 2018-11-05 19:58 | XR ---
EXAMINATION TYPE: XR abdomen acute w cxr DATE OF EXAM: 11/05/2018 COMPARISON: 10/30/2018 HISTORY: Abdominal pain TECHNIQUE: Chest x-ray with supine and upright abdomen FINDINGS: Lungs are clear. There is no heart failure. Heart size is normal. There are multiple dilated gas-filled loops of small bowel throughout the abdomen. There is no sign o f free air. There are no pathologic calcifications over the kidneys.. IMPRESSION: Dilated small bowel suggestive of mechanical small bowel obstruction with increased dilation compared to last exam. No free air. No active cardiopulmonary disease.
[2018-11-05 19:59] LABS: ALT 40 U/L (21-72); AST 41 U/L (17-59); African American GFR (CKD) >90 (>60 ml/min/1.73 sqM); Albumin 4.2 g/dL (3.5-5.0); Alkaline Phosphatase 63 U/L (38-126); Amylase 39 U/L (30-110); Anion Gap 8 mmol/L; Blood Urea Nitrogen 13 mg/dL (9-20); Carbon Dioxide 26 mmol/L (22-30); Chloride 105 mmol/L (98-107); Glucose 92 mg/dL (74-99); Lipase 17 U/L (23-300); Sodium 139 mmol/L (137-145); Total Bilirubin 0.4 mg/dL (0.2-1.3); Total Protein 6.9 g/dL (6.3-8.2)
[2018-11-05 20:02] LABS: Potassium 4.7 mmol/L (3.5-5.1)
[2018-11-05 20:03] LABS: Appearance,Urine Clear (Clear); Bilirubin,Urine Negative (Negative); Blood,Urine Negative (Negative); Color,Urine Light Yellow; Glucose,Urine (UA) Negative (Negative); Ketones,Urine Negative (Negative); Leukocyte Esterase,Urine Negative (Negative); Nitrite,Urine Negative (Negative); PH, Urine 5.5 (5.0-8.0); Protein,Urine Negative (Negative); Specific Gravity,Urine 1.007 (1.001-1.035); Urobilinogen,Urine <2.0 mg/dL (<2.0)
[2018-11-05 21:28] VITALS: BMI 33.9
[2018-11-05] MEDS ORDERED: ONDANSETRON 4 MG/2 ML VIAL IVP PRN (22:05)
[2018-11-05] MEDS: HYDROmorphone 0.5 MG/0.5 ML SYRINGE IVP PRN (22:51)
[2018-11-06] MEDS: HYDROmorphone 0.5 MG/0.5 ML SYRINGE IVP PRN ×5 (01:53→22:52)
--- NOTE | 2018-11-06 10:35 | P.GSCN ---
<Donna Barone A - Last Filed: 11/06/18 10:31> History of Present Illness Consult date: 11/06/18 Reason for Consult: SBO Requesting physician: Sameer Haywood History of present illness: CHIEF COMPLAINT: small bowel obstruction HISTORY OF PRESENT ILLNESS: 63-year-old male who presented to the emergency room with a chief complaint of abdominal pain, inability to pass flatus, and possible obstruction. Patient was recently hospitalized from 10/30/2018 until 11/01/2018 for small bowel obstruction that resolved with conservative management including NG tube placement. Patient has a history of multiple bowel obstructions. He underwent exploratory laparotomy with lysis of adhesions in [place] [address] Fu. Patient reports he ate a chicken megha yesterday and later he felt began to have nausea and abdominal pain, similiar to his previous bowel obstru ctions. Patient reports passing a small amount of flatus this morning. His abdominal pain is tolerable with current medications. No episodes of emesis this morning. PAST MEDICAL HISTORY: See list. PAST SURGICAL HISTORY: See list. MEDICATIONS: See list. ALLERGIES: See list. SOCIAL HISTORY: No illicit drug use. REVIEW OF SYSTEMS: CONSTITUTIONAL: Denies fever or chills. HEENT: Denies blurred vision, vision changes, or eye pain. Denies hemoptysis ENDOCRINE: Denies heat or cold intolerance. CARDIOVASCULAR: Denies chest pain or pressure. RESPIRATORY: No shortness of breath. GASTROINTESTINAL: see HPI for pertinent information NEURO: Denies history of seizures. PSYCH: No depression or suicidal ideation HEMATOLOGIC: Denies bleeding disorders. LYMPHATIC: The patient denies any lumps and bumps around the neck. GENITOURINARY: Denies any blood in urine or increased urinary frequency. MUSCULOSKELETAL: Denies myalgias. Denies joint swelling. Denies decreased range of motion beyond patients baseline. SKIN: Denies pruitis. Denies rash. PHYSICAL EXAM: VITAL SIGNS: Reviewed GENERAL: Well-developed in no acute distress. HEENT: No sclera icterus. Extraocular movements grossly intact. Moist buccal mucosa. Head is atraumatic, normocephalic. Hears conversational speech. No nasal drainage. NECK: Supple without lymphadenopathy. CHEST: Non-labored respirations and equal bilateral excursions. CARDIOVASCULAR: Regular rate with regular rhythm. Palpable 2+ radial pulses. ABDOMEN: Obese. Soft. Mild distention. Tenderness with palpation. MUSCULOSKELETAL: No clubbing, cyanosis or edema. NEUROLOGIC: No focal or lateralizing signs. Cranial nerves II through XII grossly intact. PSYCH: Appropriate affect. Alert and oriented to person, place and time. SKIN: Well perfused. Good skin turgor. LABORATORY DATA: Laboratory data upon admission reveals white count 9.0. Hemoglobin 14.5. Sodium 139. Potassium 4.7. BUN 13. Creatinine 0.64. Bilirubin 0.4. AST 41. ALT 40. Lipase 17. IMAGIN. acute abdominal series: multiple dilated gas-filled loops of small bowel throughout the abdomen. No sign of free air. findings suggestive of mechanical small bowel obstruction. ASSESSMENT: 1. Abdominal pain 2. Small bowel obstruction 3. Recent admission for small bowel obstruction, October 2018 4. History of multiple bowel obstructions 5. History of exploratory laparotomy with lysis of adhesions, 2014 PLAN: 1. NPO 2. Continue IV fluids 3. Patient to undergo robotic lysis of adhesions today with Dr. Lynn Nurse practitioner note has been reviewed by physician. Signing provider agrees with the documented findings, assessment, and plan of care. Past Medical History Past Medical History: Cancer, Deep Vein Thrombosis (DVT), GERD/Reflux, Hyperlipidemia, Pneumonia Additional Past Medical History / Comment(s): SBOs, L lower leg DVT, blood clot behind R eye, basal skin cancer with removals, pneumonia with SIRS, sinus problems, low back pain, L foot plantar fascitis, urine flow issues at times, past hiatal hernia-(sx) History of Any Multi-Drug Resistant Organisms: C-DIFF Year Discovered:: 2009 MDRO Source:: stool Past Surgical History: Adenoidectomy, Bowel Resection, Cholecystectomy, Hernia Repair, Tonsillectomy Additional Past Surgical History / Comment(s): Exploratory lap with lysis of adhesions, small bowel decompression, yamileth fundiplication, EGD, colonoscopies/benign polypectomies, T&A twice, skin cancer removals, Past Anesthesia/Blood Transfusion Reactions: No Reported Reaction Past Psychological History: No Psychological Hx Reported Additional Psychological History / Comment(s): PT LIVES WITH HIS GILBERTO, 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 Smoking Status: Never smoker Past Alcohol Use History: None Reported Additional Past Alcohol Use History / Comment(s): Patient is a lifelong nonsmoker. He does have medical marijuana but states he hasn't smoked marijuana in a very long time (over a year). He denies any street drug use. He denies any alcohol use. He is currently living at home with his . 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 He has been in the [place] and is unknown if he has asbestos EXPOSURE. . No recent travel. Past Drug Use History: None Reported Additional Drug Use History / Comment(s): Patient stated has'nt used marijuana in a while in a while - Past Family History Mother Family Medical History: Cancer, Diabetes Mellitus Additional Family Medical History / Comment(s): Emphysema, heart problems, COLON CANCER. Father Additional Family Medical History / Comment(s): COLON CA LIVER CA,MULTIPLE MYELOMA, bone cancer Medications and Allergies Home Medications Medication Instructions Recorded Confirmed Type Ascorbic Acid [Vitamin C] 1,000 mg PO QID 04/04/15 11/05/18 History Calcium Carbonate/Vitamin D3 2 tab PO BID 04/04/15 11/05/18 History [Calcium 600-Vit D3 400 Tablet] Multivitamins, Thera [Multivitamin 2 tab PO HS 04/04/15 11/05/18 History (formulary)] Fish Oil/Dha/Epa [Fish Oil 1,200 1 cap PO BID 05/26/16 11/05/18 History mg Fish Oil] Folic Acid 0.8 mg PO HS 05/26/16 11/05/18 History Selenium 200 mcg PO HS 08/25/17 11/05/18 History Aspirin 325 mg PO DAILY 03/30/18 11/05/18 History Sennosides/Docusate Sodium [Minerva 1 tab PO BID 03/30/18 11/05/18 History Colace] Allergies Allergy/AdvReac Type Severity Reaction Status Date / Time morphine Allergy Rash/Hives Verified 11/05/18 19:31 Penicillins Allergy Rash/Hives, Verified 11/05/18 19:31 WHEEZING Surgical - Exam Vital Signs Temp Pulse Resp BP Pulse Ox 98.5 F 74 20 131/84 96 11/05/18 19:10 11/05/18 19:10 11/05/18 19:10 11/05/18 19:10 11/05/18 19:10 Results - Labs 11/05/18 19:31 11/05/18 19:31 Abnormal Lab Results - Last 24 Hours (Table) 11/05/18 Range/Units 19:31 Creatinine 0.64 L (0.66-1.25) mg/dL Lipase 17 L (23-300) U/L Diabetes panel 11/05/18 Range/Units 19:31 Sodium 139 (137-145) mmol/L Potassium 4.7 (3.5-5.1) mmol/L Chloride 105 (98-107) mmol/L Carbon Dioxide 26 (22-30) mmol/L BUN 13 (9-20) mg/dL Creatinine 0.64 L (0.66-1.25) mg/dL Glucose 92 (74-99) mg/dL Calcium 10.0 (8.4-10.2) mg/dL AST 41 (17-59) U/L ALT 40 (21-72) U/L Alkaline Phosphatase 63 (38-126) U/L Total Protein 6.9 (6.3-8.2) g/dL Albumin 4.2 (3.5-5.0) g/dL Calcium panel 11/05/18 Range/Units 19:31 Calcium 10.0 (8.4-10.2) mg/dL Albumin 4.2 (3.5-5.0) g/dL Pituitary panel 11/05/18 Range/Units 19:31 Sodium 139 (137-145) mmol/L Potassium 4.7 (3.5-5.1) mmol/L Chloride 105 (98-107) mmol/L Carbon Dioxide 26 (22-30) mmol/L BUN 13 (9-20) mg/dL Creatinine 0.64 L (0.66-1.25) mg/dL Glucose 92 (74-99) mg/dL Calcium 10.0 (8.4-10.2) mg/dL Adrenal panel 11/05/18 Range/Units 19:31 Sodium 139 (137-145) mmol/L Potassium 4.7 (3.5-5.1) mmol/L Chloride 105 (98-107) mmol/L Carbon Dioxide 26 (22-30) mmol/L BUN 13 (9-20) mg/dL Creatinine 0.64 L (0.66-1.25) mg/dL Glucose 92 (74-99) mg/dL Calcium 10.0 (8.4-10.2) mg/dL Total Bilirubin 0.4 (0.2-1.3) mg/dL AST 41 (17-59) U/L ALT 40 (21-72) U/L Alkaline Phosphatase 63 (38-126) U/L Total Protein 6.9 (6.3-8.2) g/dL Albumin 4.2 (3.5-5.0) g/dL Assessment and Plan (1) Small bowel obstruction Current Visit: Yes Status: Acute Code(s): K56.69 - OTHER INTESTINAL OBSTRUCTION * DO NOT USE * SNOMED Code(s): 410675675 (2) Abdominal pain Current Visit: No Status: Acute Code(s): R10.9 - UNSPECIFIED ABDOMINAL PAIN SNOMED Code(s): 60520508 <Trinh Lynn - Last Filed: 11/06/18 11:04> History of Present Illness History of present illness: Patient seen and evaluated. He was offered surgical intervention as he is recurrent small bowel obstruction recently admitted and discharged in the last 7 days. He now presents with high-grade small bowel obstruction after eating a chicken megha sandwich. Abdominal x-rays personally reviewed with high-grade small bowel obstruction. Patient and family wanted laparoscopic approach. Possibility of open technique described with degree of small bowel obstruction as well. Patient was also offered option for delayed surgical intervention with his primary surgeon. Given the degree of discomfort including recurrence, patient chose to proceed with surgical intervention urgently. Surgical - Exam Vital Signs Temp Pulse Resp BP Pulse Ox 98.5 F 74 20 131/84 96 11/05/18 19:10 11/05/18 19:10 11/05/18 19:10 11/05/18 19:10 11/05/18 19:10 Results - Labs 11/05/18 19:31 11/05/18 19:31 Abnormal Lab Results - Last 24 Hours (Table) 11/05/18 Range/Units 19:31 Creatinine 0.64 L (0.66-1.25) mg/dL Lipase 17 L (23-300) U/L Diabetes panel 11/05/18 Range/Units 19:31 Sodium 139 (137-145) mmol/L Potassium 4.7 (3.5-5.1) mmol/L Chloride 105 (98-107) mmol/L Carbon Dioxide 26 (22-30) mmol/L BUN 13 (9-20) mg/dL Creatinine 0.64 L (0.66-1.25) mg/dL Glucose 92 (74-99) mg/dL Calcium 10.0 (8.4-10.2) mg/dL AST 41 (17-59) U/L ALT 40 (21-72) U/L Alkaline Phosphatase 63 (38-126) U/L Total Protein 6.9 (6.3-8.2) g/dL Albumin 4.2 (3.5-5.0) g/dL Calcium panel 11/05/18 Range/Units 19:31 Calcium 10.0 (8.4-10.2) mg/dL Albumin 4.2 (3.5-5.0) g/dL Pituitary panel 11/05/18 Range/Units 19:31 Sodium 139 (137-145) mmol/L Potassium 4.7 (3.5-5.1) mmol/L Chloride 105 (98-107) mmol/L Carbon Dioxide 26 (22-30) mmol/L BUN 13 (9-20) mg/dL Creatinine 0.64 L (0.66-1.25) mg/dL Glucose 92 (74-99) mg/dL Calcium 10.0 (8.4-10.2) mg/dL Adrenal panel 11/05/18 Range/Units 19:31 Sodium 139 (137-145) mmol/L Potassium 4.7 (3.5-5.1) mmol/L Chloride 105 (98-107) mmol/L Carbon Dioxide 26 (22-30) mmol/L BUN 13 (9-20) mg/dL Creatinine 0.64 L (0.66-1.25) mg/dL Glucose 92 (74-99) mg/dL Calcium 10.0 (8.4-10.2) mg/dL Total Bilirubin 0.4 (0.2-1.3) mg/dL AST 41 (17-59) U/L ALT 40 (21-72) U/L Alkaline Phosphatase 63 (38-126) U/L Total Protein 6.9 (6.3-8.2) g/dL Albumin 4.2 (3.5-5.0) g/dL
[2018-11-06] MEDS ORDERED: CLINDAMYCIN 900 MG in DEXTROSE 5% IN WATER 50 ML IVPB ONE ×2 (11:04)
--- NOTE | 2018-11-06 11:04 | P.PN ---
Progress Note - Text Progress Note Date: 11/06/18 Patient seen and evaluated. He was offered surgical intervention as he is recurrent small bowel obstruction recently admitted and discharged in the last 7 days. He now presents with high-grade small bowel obstruction after eating a chicken megha sandwich. Abdominal x-rays personally reviewed with high-grade small bowel obstruction. Patient and family wanted laparoscopic approach. Possibility of open technique described with degree of small bowel obstruction as well. Patient was also offered option for delayed surgical intervention with his primary surgeon. Given the degree of discomfort including recurrence, patient chose to proceed with surgical intervention urgently.
[2018-11-06] MEDS ORDERED: HEPARIN SODIUM,PORCINE 5,000 UNIT/ML 1 ML VIAL SQ STA (11:05)
[2018-11-06] MEDS ORDERED: PROPOFOL 10 MG/ML 20 ML VIAL IV ONE (11:20)
[2018-11-06] MEDS ORDERED: LIDOCAINE 1% INJ 10MG/ML (20 ML MDV) ONE (11:20)
[2018-11-06] MEDS ORDERED: VECURONIUM 10 MG VIAL IV ONE (11:20)
[2018-11-06] MEDS ORDERED: NEOSTIGMINE 1 MG/ML 10 ML VIAL ONE (11:20)
[2018-11-06] MEDS ORDERED: HYDROmorphone (PF) 1 MG/ML ONE (11:20)
[2018-11-06] MEDS ORDERED: ceFAZolin 1,000 MG VIAL ONE (11:20)
[2018-11-06] MEDS ORDERED: fentaNYL (PF) 50 MCG/ML 2 ML AMP ONE (11:20)
[2018-11-06] MEDS ORDERED: MIDAZOLAM 2 MG/2 ML VIAL ONE (11:20)
[2018-11-06] MEDS ORDERED: SUCCINYLCHOLINE CHLORIDE VIAL 200 MG/10 ML VIAL IV ONE (11:20)
[2018-11-06] MEDS ORDERED: GLYCOPYRROLATE 0.2 MG/ML 2 ML VIAL ONE (11:20)
[2018-11-06] MEDS ORDERED: LACTATED RINGERS 1,000 ML IV ONE ×2 (11:27→13:25)
[2018-11-06] MEDS ORDERED: LIDOCAINE 1%-EPI 1:100,000 20 ML VIAL SQ ONE (11:28)
[2018-11-06] MEDS ORDERED: SODIUM CHLORIDE 0.9% 50 ML with ceFAZolin 2,000 MG IV ONE ×2 (12:04)
--- NOTE | 2018-11-06 12:10 | P.HPIM ---
History of Present Illness H&P Date: 11/06/18 This is a 63-year-old male patient of Dr. Swanson. Patient presented with complaints of increased abdominal pain. Patient reports he's had issues with recurring small bowel obstructions. Patient was recently admitted due to issues but was discharged home per surgical services. Patient reports that he improved for a day or so and then symptoms reoccurred. Patient has a past medical history of DVT personally for 15 years ago was in route she received treatment with Coumadin no longer on treatment. Additional medical history includes GERD, hyperlipidemia, pneumonia, reoccurring small bowel obstructions. Previous exploratory lap with lysis of adhesions, Niesen fundoplication and skin cancer. Acute abdominalseries completed showing dilated small bowel suggestive of mechanical small bowel charged with increased dilation compared to last exam. No free air. No active cardiopulmonary disease. Surgical services consulted. Patient currently nothing by mouth. Patient denies any chest pain or shortness of breath. Patient is still having some abdominal pain but is passing gas. Patient denies nausea or vomiting at this time. Patient denies any urinary burning or frequency. Review of Systems please refer to HPI otherwise unremarkable Past Medical History Past Medical History: Cancer, Deep Vein Thrombosis (DVT), GERD/Reflux, Hyperlipidemia, Pneumonia Additional Past Medical History / Comment(s): SBOs, L lower leg DVT, blood clot behind R eye, basal skin cancer with removals, pneumonia with SIRS, sinus problems, low back pain, L foot plantar fascitis, urine flow issues at times, pa st hiatal hernia-(sx) History of Any Multi-Drug Resistant Organisms: C-DIFF Date of last positivie culture/infection: 2009 MDRO Source:: stool Past Surgical History: Adenoidectomy, Bowel Resection, Cholecystectomy, Hernia Repair, Tonsillectomy Additional Past Surgical History / Comment(s): Exploratory lap with lysis of adhesions, small bowel decompression, yamileth fundiplication, EGD, colonoscopies/benign polypectomies, T&A twice, skin cancer removals, Past Anesthesia/Blood Transfusion Reactions: No Reported Reaction Past Psychological History: No Psychological Hx Reported Additional Psychological History / Comment(s): PT LIVES WITH HIS GILBERTO, 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 Smoking Status: Never smoker Past Alcohol Use History: None Reported Additional Past Alcohol Use History / Comment(s): Patient is a lifelong nonsmoker. He does have medical marijuana but states he hasn't smoked marijuana in a very long time (over a year). He denies any street drug use. He denies any alcohol use. He is currently living at home with his . 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 He has been in the [employer] and is unknown if he has asbestos EXPOSURE. . No recent travel. Past Drug Use History: None Reported Additional Drug Use History / Comment(s): Patient stated has'nt used marijuana in a while in a while - Past Family History Mother Family Medical History: Cancer, Diabetes Mellitus Additional Family Medical History / Comment(s): Emphysema, heart problems, COLON CANCER. Father Additional Family Medical History / Comment(s): COLON CA LIVER CA,MULTIPLE MYELOMA, bone cancer Medications and Allergies Home Medications Medication Instructions Recorded Confirmed Type Ascorbic Acid [Vitamin C] 1,000 mg PO QID 04/04/15 11/05/18 History Calcium Carbonate/Vitamin D3 2 tab PO BID 04/04/15 11/05/18 History [Calcium 600-Vit D3 400 Tablet] Multivitamins, Thera [Multivitamin 2 tab PO HS 04/04/15 11/05/18 History (formulary)] Fish Oil/Dha/Epa [Fish Oil 1,200 1 cap PO BID 05/26/16 11/05/18 History mg Fish Oil] Folic Acid 0.8 mg PO HS 05/26/16 11/05/18 History Selenium 200 mcg PO HS 08/25/17 11/05/18 History Aspirin 325 mg PO DAILY 03/30/18 11/05/18 History Sennosides/Docusate Sodium [Minerva 1 tab PO BID 03/30/18 11/05/18 History Colace] Allergies Allergy/AdvReac Type Severity Reaction Status Date / Time morphine Allergy Rash/Hives Verified 11/05/18 19:31 Penicillins Allergy Rash/Hives, Verified 11/05/18 19:31 WHEEZING Physical Exam Vitals: Vital Signs Temp Pulse Pulse Resp BP BP Pulse Ox 11/06/18 07:25 98.1 F 62 15 95/60 95 11/06/18 02:05 97.9 F 63 18 129/69 94 L 11/05/18 21:47 97.7 F 64 18 109/68 93 L 11/05/18 21:11 98.6 F 71 18 110/81 98 11/05/18 20:39 68 18 108/71 97 11/05/18 19:10 98.5 F 74 20 131/84 96 Intake and Output 11/05/18 11/06/18 11/06/18 22:59 06:59 14:59 Intake Total 1000 1000 100 Balance 1000 1000 100 Intake: IV 100 Intake, IV Titration 1000 1000 Amount Sodium Chloride 0.9% 1, 1000 000 ml @ 100 mls/hr IV . Q10H STA Rx#:[id number] Sodium Chloride 0.9% 1, 1000 000 ml @ 999 mls/hr IV . Q1H1M STA Rx#:[id number] Other: # Voids 2 Weight 113.398 kg Head normocephalic Neck supple Lungs clear to auscultation bilaterally no wheezing or crackles Heart regular rate and rhythm S1-S2, no rub or gallop Abdomen is slightly distended Extremities no edema Neuro alert and orientated to 3 Results CBC & Chem 7: 11/05/18 19:31 11/05/18 19:31 Labs: Abnormal Lab Results - Last 24 Hours (Table) 11/05/18 Range/Units 19:31 Creatinine 0.64 L (0.66-1.25) mg/dL Lipase 17 L (23-300) U/L Thrombosis Risk Factor Assmnt - Choose All That Apply Any of the Below Risk Factors Present?: Yes Each Factor Represents 1 point: Obesity (BMI >25) Other Risk Factors: Yes Each Risk Factor Represents 2 Points: Age 61-74 years Other congenital or acquired thrombophilia - If yes, enter type in comment: No Thrombosis Risk Factor Assessment Total Risk Factor Score: 3 Thrombosis Risk Factor Assessment Level: Moderate Risk Assessment and Plan Assessment: 1. Abdominal pain related to small bowel obstruction. Acute abdominal series completed showing dilated small bowel suggestive mechanical small bowel discharged with increased dilation appear to last exam. No free air. No active cardiopulmonary disease. Surgical services have been consulted planning expiratory lap 2. History of recurring small bowel obstruction 3. History of exploratory lap with lysis of adhesions 2017 4. History of DVT 15 years ago. Patient reports he was on Coumadin and completed treatment no longer on anticoagulation 5. History of GERD 6. History of hyperlipidemia 7. History of skin cancer DVT prophylaxis heparin. GI prophylaxis Protonix
[2018-11-06] MEDS ORDERED: NALOXONE 0.4 MG/ML 1 ML VIAL IV PRN (15:23)
--- NOTE | 2018-11-06 15:23 | P.OP ---
Date of Procedure: 11/06/18 Description of Procedure: SURGEON: HORTENCIA MOTA MD PREOPERATIVE DIAGNOSES: 1. High-grade small bowel obstruction with recurrence 2. History of multiple abdominal surgeries 3. Chronic constipation 4. Gastroesophageal reflux disease 5. History of DVT, left lower leg 6. Pre-existing obstructive uropathy POSTOPERATIVE DIAGNOSES: 1. High-grade small bowel obstruction with recurrence 2. History of multiple abdominal surgeries 3. Chronic constipation 4. Gastroesophageal reflux disease 5. History of DVT, left lower leg 6. Pre-existing obstructive uropathy 7. Severe sigmoid diverticulosis 8. Severe peritoneal adhesions with interloop adhesions Procedure(s) Performed: 1. Robotic assisted laparoscopic lysis of adhesions over 2 hours 2. Robotic assisted laparoscopic reduction of small bowel volvulus involving mid to distal ileum Anesthesia: GETA, local Estimated Blood Loss (ml): 50 Pathology: none sent Condition: stable Disposition: floor Operative Findings: 1. Prior small bowel resection at the jejunum, left upper quadrant identified 2. Incisional hernia epigastrium from prior abdominal surgery 3. Peritoneal adhesions small bowel to anterior abdominal wall lysed 4. Severe interloop adhesions throughout small bowel identified 5. Mechanical small bowel obstruction identified at right lower quadrant, mid to distal ileum from small bowel volvulus reduced due to severe interloop adhesions from diverticulitis 6. Left inguinal hernia, indirect 7. Extensive lysis of adhesions using vessel sealer and scissors over 2 hours performed 8. Small bowel dilation resolved after extensive lysis of adhesions 9. Console time 124 minutes INDICATIONS: The patient is a 63-year-old male who presents with recurrent high grade small bowel obstruction. He failed conservative management and returned to the hospital in less than 3 days. Urgent surgical intervention was offered. Informed consent was obtained. Per request of the patient and family, laparoscopic approach was desired. Benefits and risks of the procedure including but not limited to bleeding, infection, open surgical technique, injury to the small bowel was described. Informed consent was obtained. DESCRIPTION OF PROCEDURE: Patient was brought to the operating room, placed in supine position. After general induction, the abdomen had been prepped and draped in standard sterile fashion. The robotic da Alonso XI system was primed. After a timeout protocol was performed, the patient had been prepped and draped in standard sterile fashion. The robot was docked along the right lateral abdomen. The patient was repositioned in reverse Trendelenburg position of 16- degrees. A 5 mm 0 degrees laparoscopic trocar entry was performed along the left upper quadrant. The abdomen was insufflated to 15 mmHg pressure which he tolerated well. Diagnostic laparoscopy demonstrated severe intra-abdominal adhesions involving the midline, pelvis and upper abdomen. The small bowel had moderate interloop adhesions and feature of previous small bowel resection of the left upper quadrant. No injury to the bowel, viscera or mesentery was identified. Next, three 8 mm robotic ports were placed along the upper abdomen. The camera 8-mm port was initially docked along the epigastrium. Please note that the ports were placed at least 8 cm away from the target anatomy. Instruments were interchanged using only 3 ports for a grasper, vessel sealer, and scissors with cautery. Instruments were interchanged by the teachers assistant including Bovie cautery scissors. I had sat at the console. The camera was positioned along the epigastrium. Extensive lysis of adhesions over 2 hours was performed including using scissors and vessel sealer. Carefully the adhesions were taken down without injury to the small bowel using vessel sealer and cautery on scissors. Severe adhesions along the right lower quadrant revealed a fecalith of the retroperitoneum consistent with previous diverticular contained rupture causing severe adhesions and small bowel volvulus. Careful lysis of adhesions was performed without enterotomies including reduction of small bowel volvulus involving the ileum. Severe diverticulosis of the sigmoid colon was also found. Hemostasis was excellent and the abdomen was dry upon completion. Complete lysis of adhesions demonstrated left inguinal hernia including incisional hernia of the midline. The robot was undocked. All pneumoperitoneum and instruments were evacuated from the abdominal cavity. The incisions were re-approximated using 4-0 Monocryl in an interrupted subcuticular fashion. Please note along the trocar sites, local anesthetic was placed as a field block prior to insertion of all instruments. Liquid glue was applied to the skin. At the end of the procedure needle, sponge, and instrument count had been verified correct by the surgical assistant certified. The patient was transferred to postanesthesia care unit in stable condition. Intraoperative images including findings were described to the patients family.
[2018-11-06] MEDS: HYDROmorphone 1 MG/ML 1 ML SYRINGE IVP ONE ×2 (15:46→15:55)
[2018-11-06] MEDS: SODIUM CHLORIDE 0.9% 1,000 ML IV SCH ×2 (16:46→21:27)
[2018-11-06] MEDS: HEPARIN SODIUM,PORCINE 5,000 UNIT/ML 1 ML VIAL SQ SCH (20:25)
[2018-11-07] MEDS: SODIUM CHLORIDE 0.9% 1,000 ML IV SCH ×2 (05:23→17:14)
[2018-11-07] MEDS: PANTOPRAZOLE 40 MG/10 ML VIAL IVP SCH (07:00)
[2018-11-07] MEDS: HEPARIN SODIUM,PORCINE 5,000 UNIT/ML 1 ML VIAL SQ SCH ×2 (07:02→20:08)
[2018-11-07] MEDS: HYDROmorphone 0.5 MG/0.5 ML SYRINGE IVP PRN ×3 (07:53→17:22)
[2018-11-07] MEDS ORDERED: TAMSULOSIN 0.4 MG CAP.ER.24H PO STA ×2 (08:09→11:00)
[2018-11-07] MEDS: TAMSULOSIN 0.4 MG CAP.ER.24H PO SCH (08:31)
[2018-11-07 08:38] LABS: Basophils % (A) 0 %; Eosinophils # (A) 0.2 k/uL (0-0.7); Eosinophils % (A) 2 %; HCT 45.7 % (39.0-53.0); HGB 14.9 gm/dL (13.0-17.5); Lymphocytes # (A) 1.5 k/uL (1.0-4.8); Lymphocytes % (A) 17 %; MCH 30.9 pg (25.0-35.0); MCHC 32.7 g/dL (31.0-37.0); MCV 94.7 fL (80.0-100.0); Mean Platelet Volume 7.2; Monocytes # (A) 0.6 k/uL (0-1.0); Monocytes % (A) 7 %; Neutrophils # (A) 6.2 k/uL (1.3-7.7); Neutrophils % (A) 71 %; Platelet Count 261 k/uL (150-450); RBC 4.83 m/uL (4.30-5.90); RDW 13.4 % (11.5-15.5); WBC 8.7 k/uL (3.8-10.6)
[2018-11-07 08:53] LABS: ALT 44 U/L (21-72); AST 27 U/L (17-59); African American GFR (CKD) >90 (>60 ml/min/1.73 sqM); Albumin 3.9 g/dL (3.5-5.0); Alkaline Phosphatase 65 U/L (38-126); Anion Gap 11 mmol/L; Blood Urea Nitrogen 9 mg/dL (9-20); Calcium 8.8 mg/dL (8.4-10.2); Carbon Dioxide 26 mmol/L (22-30); Chloride 104 mmol/L (98-107); Glucose 101 mg/dL (74-99); Potassium 3.9 mmol/L (3.5-5.1); Sodium 141 mmol/L (137-145); Total Bilirubin 0.6 mg/dL (0.2-1.3); Total Protein 6.5 g/dL (6.3-8.2)
--- NOTE | 2018-11-07 10:59 | P.PN ---
Subjective Progress Note Date: 11/07/18 CHIEF COMPLAINT: Acute recurrent small bowel obstruction HISTORY OF PRESENT ILLNESS: The patient is a 63-year-old male postop day 1 status post extensive lysis of adhesions. He reports improvement of his abdominal pain since admission and after surgery. He has pre-existing obstructive uropathy. He had been straight cathed over night. No bowel movements. He is yet to ambulate and pass flatus. Intraoperative findings and cause for obstruction reviewed including from pre-exisiting diverticulitis and p revious surgery. ROS: No reports of nausea and vomiting. No bowel movements. No fevers or chills. No new chest pain. No productive sputum PHYSICAL EXAM: VITAL SIGNS: Reviewed CONSTITUTIONAL: Well developed and in no acute distress. EYES: Conjuctivae without sclera icterus. Extraocular movements grossly intact. HEAD, EARS, NOSE, THROAT: Moist buccal mucosa. Head is atraumatic, normoceph alic. Hears conversational speech. No nasal drainage. NECK: Supple. No thyroidomegaly. RESPIRATORY: Non-labored respirations and equal bilateral excursions. CARDIOVASCULAR: Palpable 2+ radial pulses. Regular rate. Regular rhythm. ABDOMEN: Incisions clean dry and intact. Nondistended. Soft. No peritonitis. NGT nil output. MUSCULOSKELETAL: No gross deformity of the lower extremities noted. No clubbing. No cyanosis. SKIN: Good skin turgor. Well perfused. NEUROLOGIC: Cranial nerves I through XII grossly intact. No focal or lateralizing signs. PSYCH: Appropriate affect. Alert and oriented to person, place and time. CLINCAL LABS: White blood cell count normal ASSESSMENT: 1. Small bowel obstruction due to adhesions and diverticulitis PLAN: 1. NGT removed by me with the understanding of ambulating 4x daily to facilitate recovery 2. May start clears sparingly 3. Shelley catheter to be placed for obstructive uropathy 4. Flomax daily and likely upon discharge 5. Anticipated discharge home in 24 to 48 hrs pending spontaneous voids and tolerating diet. Objective - Vital Signs Vital signs: Vital Signs Temp 98.6 F 11/07/18 07:00 Pulse 80 11/07/18 07:00 Resp 15 11/07/18 07:00 BP 132/82 11/07/18 07:00 Pulse Ox 90 L 11/07/18 07:00 Intake & Output 0711/07/18 11/07/18 18:59 06:59 18:59 Intake Total 1300 480 Output Total 450 1700 Balance 850 -1220 Intake: IV 1300 Oral 480 Output: Gastric Drainage 0 Urine 400 1700 Straight 850 Estimated Blood Loss 50 Other: Voiding Method Bedside Commode Toilet Urinal # Voids 1 - Labs CBC & Chem 7: 11/07/18 07:16 11/07/18 07:16 Labs: Abnormal Lab Results - Last 24 Hours (Table) 11/07/18 Range/Units 07:16 Glucose 101 H (74-99) mg/dL Assessment and Plan (1) Lower obstructive uropathy Current Visit: Yes Status: Acute Code(s): N13.9 - OBSTRUCTIVE AND REFLUX UROPATHY, UNSPECIFIED SNOMED Code(s): 89980374 (2) Peritoneal adhesions with obstruction Current Visit: Yes Status: Acute Code(s): K56.50 - INTESTNL ADHESIONS, UNSP TO PARTIAL VERSUS COMPLETE OBST SNOMED Code(s): 22238574 (3) Diverticulitis large intestine Current Visit: Yes Status: Acute Code(s): K57.32 - DVTRCLI OF LG INT W/O PERFORATION OR ABSCESS W/O BLEEDING SNOMED Code(s): 6862772 (4) Diverticulosis large intestine w/o perforation or abscess w/bleeding Current Visit: Yes Status: Acute Code(s): K57.31 - DVRTCLOS OF LG INT W/O PERFORATION OR ABSCESS W BLEEDING SNOMED Code(s): 5016838 (5) Small bowel obstruction Current Visit: Yes Status: Acute Code(s): K56.69 - OTHER INTESTINAL OBSTRUCTION * DO NOT USE * SNOMED Code(s): 472295479
[2018-11-07] MEDS: METOCLOPRAMIDE 5 MG/ML 2 ML VIAL IVP SCH ×2 (11:17→17:18)
--- NOTE | 2018-11-07 12:30 | P.PN ---
Subjective Progress Note Date: 11/07/18 This is a 63-year-old male patient of Dr. Swanson. Patient presented with complaints of increased abdominal pain. Patient reports he's had issues with recurring small bowel obstructions. Patient was recently admitted due to issues but was discharged home per surgical services. Patient reports that he improved for a day or so and then symptoms reoccurred. Patient has a past medical history of DVT personally for 15 years ago was in route she received treatment with Coumadin no longer on treatment. Additional medical history includes GERD, hyperlipidemia, pneumonia, reoccurring small bowel obstructions. Previous exploratory lap with lysis of adhesions, Niesen fundoplication and skin cancer. Acute abdominalseries completed showing dilated small bowel suggestive of mechanical small bowel charged with increased dilation compared to last exam. No free air. No active cardiopulmonary disease. Surgical services consulted. Patient currently nothing by mouth. Patient denies any chest pain or shortness of breath. Patient is still having some abdominal pain but is passing gas. Patient denies nausea or vomiting at this time. Patient denies any urinary burning or frequency. On 11/07/2018 patient was seen and examined on the medical floor. He is alert and oriented in no apparent distress, patient underwent robotic lysis of adhesions over 2 hours, reduction of small bowel volvulus involving mid to distal ileum yesterday. Today patient is doing well he has mild abdominal pain otherwise no complaints there is no fever or chills no headache or dizziness no chest pain no shortness of breath no cough no nausea or vomiting no diarrhea no blood in the stool and no urinary symptoms, he is passing gas but has not had a bowel movement since surgery. Objective - Vital Signs Vital signs: Vital Signs Temp 98.6 F 11/07/18 07:00 Pulse 80 11/07/18 07:00 Resp 15 11/07/18 07:00 BP 132/82 11/07/18 07:00 Pulse Ox 90 L 11/07/18 07:00 Intake & Output 11/06/18 11/07/18 11/07/18 18:59 06:59 18:59 Intake Total 1300 480 Output Total 450 1700 Balance 850 -1220 Intake: IV 1300 Oral 480 Output: Gastric Drainage 0 Urine 400 1700 Straight 850 Estimated Blood Loss 50 Other: Voiding Method Bedside Commode Toilet Urinal # Voids 1 - Exam In General patient is alert and oriented X 3 in no distress Head normocephalic and atraumatic Neck supple, no JVD no goiter Lungs clear to auscultation bilaterally no wheezing or crackles Heart regular rate and rhythm S1-S2, no rub or gallop Abdomen is slightly distended Extremities no edema no cyanosis or clubbing Neuro No gross focal deficit - Labs CBC & Chem 7: 11/07/18 07:16 11/07/18 07:16 Labs: Abnormal Lab Results - Last 24 Hours (Table) 11/07/18 Range/Units 07:16 Glucose 101 H (74-99) mg/dL Assessment and Plan Plan: 1. Abdominal pain related to small bowel obstruction. Acute abdominal series completed showing dilated small bowel suggestive mechanical small bowel discharged with increased dilation appear to last exam. No free air. No active cardiopulmonary disease. Patient was seen by surgery and underwent Robotic lysis of adhesions over 2 hours, reduction of small bowel volvulus involving mid to distal ileum yesterday. 2. History of recurring small bowel obstruction 3. History of exploratory lap with lysis of adhesions 2017 4. History of DVT 15 years ago. Patient reports he was on Coumadin and completed treatment no longer on anticoagulation 5. History of GERD 6. History of hyperlipidemia 7. History of skin cancer DVT prophylaxis heparin. GI prophylaxis Protonix
[2018-11-08] MEDS: HYDROmorphone 0.5 MG/0.5 ML SYRINGE IVP PRN (01:03)
[2018-11-08] MEDS: METOCLOPRAMIDE 5 MG/ML 2 ML VIAL IVP SCH ×3 (01:03→11:16)
[2018-11-08] MEDS: SODIUM CHLORIDE 0.9% 1,000 ML IV SCH ×2 (01:09→12:05)
[2018-11-08 06:35] LABS: Basophils % (A) 0 %; Eosinophils # (A) 0.2 k/uL (0-0.7); Eosinophils % (A) 3 %; HCT 39.9 % (39.0-53.0); HGB 13.1 gm/dL (13.0-17.5); Lymphocytes # (A) 1.4 k/uL (1.0-4.8); Lymphocytes % (A) 22 %; MCH 30.6 pg (25.0-35.0); MCHC 32.8 g/dL (31.0-37.0); MCV 93.1 fL (80.0-100.0); Mean Platelet Volume 7.5; Monocytes # (A) 0.5 k/uL (0-1.0); Monocytes % (A) 8 %; Neutrophils % (A) 64 %; Platelet Count 230 k/uL (150-450); RBC 4.28 m/uL (4.30-5.90); RDW 14.5 % (11.5-15.5); WBC 6.2 k/uL (3.8-10.6)
[2018-11-08 06:57] LABS: ALT 33 U/L (21-72); AST 21 U/L (17-59); African American GFR (CKD) >90 (>60 ml/min/1.73 sqM); Albumin 3.3 g/dL (3.5-5.0); Alkaline Phosphatase 55 U/L (38-126); Anion Gap 7 mmol/L; Blood Urea Nitrogen 8 mg/dL (9-20); Calcium 8.5 mg/dL (8.4-10.2); Carbon Dioxide 25 mmol/L (22-30); Chloride 108 mmol/L (98-107); Glucose 98 mg/dL (74-99); Potassium 3.8 mmol/L (3.5-5.1); Sodium 140 mmol/L (137-145); Total Bilirubin 0.5 mg/dL (0.2-1.3); Total Protein 5.7 g/dL (6.3-8.2)
[2018-11-08 07:32] VITALS: BP 116/73; PULSE 84; RESP 15; TEMP 98.4
[2018-11-08] MEDS: TAMSULOSIN 0.4 MG CAP.ER.24H PO SCH (08:11)
[2018-11-08] MEDS: HEPARIN SODIUM,PORCINE 5,000 UNIT/ML 1 ML VIAL SQ SCH (08:12)
[2018-11-08] MEDS: PANTOPRAZOLE 40 MG/10 ML VIAL IVP SCH (08:12)
--- NOTE | 2018-11-08 11:13 | P.PN ---
Subjective Progress Note Date: 11/08/18 CHIEF COMPLAINT: Acute recurrent small bowel obstruction HISTORY OF PRESENT ILLNESS: The patient is a 63-year-old male postop day 2 status post extensive lysis of adhesions. I personally witnessed his formed bowel movement. He is passing moderate flatus. He responded well to Flomax and Reglan. ROS: No reports of nausea and vomiting. No fevers or chills. No new chest pain. No productive sputum PHYSICAL EXAM: VITAL SIGNS: Reviewed CONSTITUTIONAL: Well developed and in no acute distress. EYES: Conjuctivae without sclera icterus. Extraocular movements grossly intact. HEAD, EARS, NOSE, THROAT: Moist buccal mucosa. Head is atraumatic, normocephalic. Hears conversational speech. No nasal drainage. NECK: Supple. No thyroidomegaly. RESPIRATORY: Non-labored respirations and equal bilateral excursions. CARDIOVASCULAR: Palpable 2+ radial pulses. Regular rate. Regular rhythm. ABDOMEN: Incisions clean dry and intact. Nondistended. Soft. Nontender. MUSCULOSKELETAL: No gross deformity of the lower extremities noted. No clubbing. No cyanosis. SKIN: Good skin turgor. Well perfused. NEUROLOGIC: Cranial nerves I through XII grossly intact. No focal or lateralizing signs. PSYCH: Appropriate affect. Alert and oriented to person, place and time. : Shelley removed. CLINCAL LABS: White blood cell count normal ASSESSMENT: 1. Small bowel obstruction due to adhesions and diverticulitis PLAN: 1. Patient cleared for discharge with follow up in office in 3 days. 2. Full liquid diet for discharge Objective - Vital Signs Vital signs: Vital Signs Temp 98.4 F 11/08/18 07:00 Pulse 84 11/08/18 07:00 Resp 15 11/08/18 07:00 BP 116/73 11/08/18 07:00 Pulse Ox 92 L 11/08/18 07:00 Intake & Output 11/07/18 11/08/18 11/08/18 18:59 06:59 18:59 Intake Total 1100 Output Total 700 2450 Balance -700 -1350 Intake: Intake, IV Titration 1100 Amount Sodium Chloride 0.9% 1, 1100 000 ml @ 100 mls/hr IV . Q10H ERWIN Rx#:[id number] Output: Urine 700 2450 Other: Voiding Method Toilet Indwelling Catheter Indwelling Catheter # Bowel Movements 1 1 - Labs CBC & Chem 7: 11/08/18 05:29 11/08/18 05:29 Labs: Abnormal Lab Results - Last 24 Hours (Table) 11/08/18 11/08/18 Range/Units 05:29 05:29 RBC 4.28 L (4.30-5.90) m/uL Chloride 108 H (98-107) mmol/L BUN 8 L (9-20) mg/dL Total Protein 5.7 L (6.3-8.2) g/dL Albumin 3.3 L (3.5-5.0) g/dL Assessment and Plan (1) Lower obstructive uropathy Current Visit: Yes Status: Acute Code(s): N13.9 - OBSTRUCTIVE AND REFLUX UROPATHY, UNSPECIFIED SNOMED Code(s): 64171175 (2) Peritoneal adhesions with obstruction Current Visit: Yes Status: Acute Code(s): K56.50 - INTESTNL ADHESIONS, UNSP TO PARTIAL VERSUS COMPLETE OBST SNOMED Code(s): 04570266 (3) Diverticulitis large intestine Current Visit: Yes Status: Acute Code(s): K57.32 - DVTRCLI OF LG INT W/O PERFORATION OR ABSCESS W/O BLEEDING SNOMED Code(s): 5145138 (4) Diverticulosis large intestine w/o perforation or abscess w/bleeding Current Visit: Yes Status: Acute Code(s): K57.31 - DVRTCLOS OF LG INT W/O PERFORATION OR ABSCESS W BLEEDING SNOMED Code(s): 8515371 (5) Small bowel obstruction Current Visit: Yes Status: Acute Code(s): K56.69 - OTHER INTESTINAL OBSTRUCTION * DO NOT USE * SNOMED Code(s): 569006432
--- NOTE | 2018-11-08 14:12 | P.DS ---
Providers Date of admission: 11/05/18 20:16 Expected date of discharge: 11/08/18 Attending physician: Cesar Ferrera Consults: 11/05/18 20:16 Consult Physician Routine Consulting Provider: Trinh Lynn Consult Reason/Comments: sbo Do you want consulting provider notified?: Yes Primary care physician: Lurdes Swanson Hospital Course: Diagnoses on discharge: 1. Abdominal pain related to small bowel obstruction. Acute abdominal series completed showing dilated small bowel suggestive mechanical small bowel discharged with increased dilation appear to last exam. No free air. No active cardiopulmonary disease. Patient was seen by surgery and underwent Robotic lysis of adhesions over 2 hours, reduction of small bowel volvulus involving mid to distal ileum yesterday. 2. History of recurring small bowel obstruction 3. History of exploratory lap with lysis of adhesions 2017 4. History of DVT 15 years ago. Patient reports he was on Coumadin and completed treatment no longer on anticoagulation 5. History of GERD 6. History of hyperlipidemia 7. History of skin cancer Hospital course: This is a 63-year-old male patient of Dr. Swanson. Patient presented with complaints of increased abdominal pain. Patient reports he's had issues with recurring small bowel obstructions. Patient was recently admitted due to issues but was discharged home per surgical services. Patient reports that he improved for a day or so and then symptoms reoccurred. Patient has a past medical history of DVT personally for 15 years ago was in route she received treatment with Coumadin no longer on treatment. Additional medical history includes GERD, hyperlipidemia, pneumonia, reoccurring small bowel obstructions. Previous exploratory lap with lysis of adhesions, Niesen fundoplication and skin cancer. Acute abdominalseries completed showing dilated small bowel suggestive of mechanical small bowel charged with increased dilation compared to last exam. No free air. No active cardiopulmonary disease. Surgical services consulted. Patient currently nothing by mouth. Patient denies any chest pain or shortness of breath. Patient is still having some abdominal pain but is passing gas. Patient denies nausea or vomiting at this time. Patient denies any urinary burning or frequency. On 11/07/2018 patient was seen and examined on the medical floor. He is alert and oriented in no apparent distress, patient underwent robotic lysis of adhesions over 2 hours, reduction of small bowel volvulus involving mid to distal ileum yesterday. Today patient is doing well he has mild abdominal pain otherwise no complaints there is no fever or chills no headache or dizziness no chest pain no shortness of breath no cough no nausea or vomiting no diarrhea no blood in the stool and no urinary symptoms, he is passing gas but has not had a bowel movement since surgery. On 11/08/2018 patient was seen and examined on the medical floor he is alert and oriented 3 he was able to tolerate liquid diet for breakfast he is having bowel movement he was able also to tolerate soft diet for lunch he was evaluated by surgery and was cleared for discharge, patient was discharged home he was given a prescription for Flomax he would be followed by his primary care physician Dr. Swanson in one week follow-up with Dr. Lynn in 2-3 days Patient Condition at Discharge: Fair Plan - Discharge Summary Discharge Rx Participant: Yes New Discharge Prescriptions: New Tamsulosin [Flomax] 0.4 mg PO DAILY #7 cap Ibuprofen [Motrin] 600 mg PO Q8HR PRN #30 tab PRN Reason: Pain Polyethylene Glycol 3350 [Miralax] 17 gm PO DAILY #30 packet Tamsulosin [Flomax] 0.4 mg PO PC-BRKFST cap.er.24h Continue Multivitamins, Thera [Multivitamin (formulary)] 2 tab PO HS Calcium Carbonate/Vitamin D3 [Calcium 600-Vit D3 400 Tablet] 2 tab PO BID Ascorbic Acid [Vitamin C] 1,000 mg PO QID Folic Acid 0.8 mg PO HS Selenium 200 mcg PO HS Sennosides/Docusate Sodium [Minerva Colace] 1 tab PO BID Aspirin 325 mg PO DAILY No Action Fish Oil/Dha/Epa [Fish Oil 1,200 mg Fish Oil] 1 cap PO BID Discharge Medication List Ascorbic Acid [Vitamin C] 1,000 mg PO QID 04/04/15 [History] Calcium Carbonate/Vitamin D3 [Calcium 600-Vit D3 400 Tablet] 2 tab PO BID 04/04/15 [History] Multivitamins, Thera [Multivitamin (formulary)] 2 tab PO HS 04/04/15 [History] Fish Oil/Dha/Epa [Fish Oil 1,200 mg Fish Oil] 1 cap PO BID 05/26/16 [History] Folic Acid 0.8 mg PO HS 05/26/16 [History] Selenium 200 mcg PO HS 08/25/17 [History] Aspirin 325 mg PO DAILY 03/30/18 [History] Sennosides/Docusate Sodium [Minerva Colace] 1 tab PO BID 03/30/18 [History] Ibuprofen [Motrin] 600 mg PO Q8HR PRN #30 tab 11/08/18 [Rx] Polyethylene Glycol 3350 [Miralax] 17 gm PO DAILY #30 packet 11/08/18 [Rx] Tamsulosin [Flomax] 0.4 mg PO DAILY #7 cap 11/08/18 [Rx] Tamsulosin [Flomax] 0.4 mg PO PC-BRKFST cap.er.24h 11/08/18 [Rx] Follow up Appointment(s)/Referral(s): Lurdes Swanson MD [Primary Care Provider] - 1-2 days (please call office to schedule appointment) Trinh Lynn MD [STAFF PHYSICIAN] - 11/10/18 Patient Instructions/Handouts: Full Liquid Diet (DC) Activity/Diet/Wound Care/Special Instructions: Full liquid diet until seen in the office, Friday. Discharge Disposition: HOME SELF-CARE
[2018-11-09 10:33] LABS: Hemoglobin A1C 5.6 % (4.0-6.0)
== END 2018-11-08 14:27 | disposition home or self-care (01) | DRG 336 ==
LOC: EC 19:02 → 4SSUR 20:16
PROVIDERS: ADMIT Internal Medicine; ATTEND Internal Medicine
PROC: 8E0W4CZ Robotic Assisted Procedure of Trunk Region, Percutaneous Endoscopic Approach (ICD-10-PCS; 2018-11-06)
PROC: 0DN84ZZ Release Small Intestine, Percutaneous Endoscopic Approach (ICD-10-PCS; principal; 2018-11-06 11:00)
DX: K56.50 Intestinal adhesions [bands], unspecified as to partial versus complete obstruction (principal); K57.52 Diverticulitis of both small and large intestine without perforation or abscess without bleeding; E78.5 Hyperlipidemia, unspecified; K21.9 Gastro-esophageal reflux disease without esophagitis; K40.90 Unilateral inguinal hernia, without obstruction or gangrene, not specified as recurrent; K43.2 Incisional hernia without obstruction or gangrene; K56.2 Volvulus; N13.9 Obstructive and reflux uropathy, unspecified; Z79.82 Long term (current) use of aspirin; Z80.0 Family history of malignant neoplasm of digestive organs; Z80.7 Family history of other malignant neoplasms of lymphoid, hematopoietic and related tissues; Z82.5 Family history of asthma and other chronic lower respiratory diseases; Z83.3 Family history of diabetes mellitus; Z85.828 Personal history of other malignant neoplasm of skin; Z86.718 Personal history of other venous thrombosis and embolism; Z86.010 Personal history of colon polyps; Z87.01 Personal history of pneumonia (recurrent); Z88.5 Allergy status to narcotic agent; Z88.0 Allergy status to penicillin; Z90.49 Acquired absence of other specified parts of digestive tract; Z80.8 Family history of malignant neoplasm of other organs or systems
CPT/HCPCS: 36415; 74022; 80053; 81003; 82150; 83036; 83605; 83690; 85025; 96361; 96374; 96375; 99285

== ENCOUNTER 2018-11-11 14:36 | Inpatient (IN) | payer MEDICARE, OTHER ==
[2018-11-11] MEDS ORDERED: SODIUM CHLORIDE 0.9% 1,000 ML IV STA (16:02)
[2018-11-11] MEDS ORDERED: ONDANSETRON 4 MG/2 ML VIAL IVP STA (16:02)
[2018-11-11] MEDS ORDERED: KETOROLAC 30 MG/ML 1 ML VIAL IVP STA (16:03)
--- NOTE | 2018-11-11 17:08 | XR ---
EXAMINATION TYPE: XR KUB DATE OF EXAM: 11/11/2018 COMPARISON: 11/05/2018 HISTORY: Abdominal pain TECHNIQUE: 2 views upright FINDINGS: There are multiple dilated fluid-filled loops of small bowel with fluid levels. There is no sign of free air. There is a relative lack of large bowel gas. Lung bases are clear of consolidation . IMPRESSION: Dilated small bowel with fluid levels consistent with severe ileus or mechanical obstruc tion small bowel obstruction unchanged compared to last exam.
[2018-11-11 17:36] LABS: Appearance,Urine Clear (Clear); Bilirubin,Urine Negative (Negative); Blood,Urine Negative (Negative); Color,Urine Yellow; Glucose,Urine (UA) Negative (Negative); Ketones,Urine Negative (Negative); Leukocyte Esterase,Urine Negative (Negative); Nitrite,Urine Negative (Negative); PH, Urine 5.5 (5.0-8.0); Protein,Urine Trace (Negative); Specific Gravity,Urine 1.031 (1.001-1.035); Urobilinogen,Urine <2.0 mg/dL (<2.0)
[2018-11-11 17:37] LABS: Basophils # (A) 0.1 k/uL (0-0.2); Basophils % (A) 1 %; Eosinophils # (A) 0.3 k/uL (0-0.7); Eosinophils % (A) 2 %; HCT 47.6 % (39.0-53.0); HGB 15.6 gm/dL (13.0-17.5); Lymphocytes # (A) 1.1 k/uL (1.0-4.8); Lymphocytes % (A) 9 %; MCH 30.6 pg (25.0-35.0); MCHC 32.8 g/dL (31.0-37.0); MCV 93.2 fL (80.0-100.0); Mean Platelet Volume 7.3; Monocytes % (A) 8 %; Neutrophils # (A) 10.3 k/uL (1.3-7.7); Neutrophils % (A) 79 %; Platelet Count 315 k/uL (150-450); RBC 5.11 m/uL (4.30-5.90); RDW 14.2 % (11.5-15.5); WBC 13.1 k/uL (3.8-10.6)
[2018-11-11] MEDS ORDERED: HYDROmorphone 1 MG/ML 1 ML SYRINGE IVP STA (17:40)
[2018-11-11 17:49] LABS: ALT 35 U/L (21-72); AST 27 U/L (17-59); African American GFR (CKD) >90 (>60 ml/min/1.73 sqM); Alkaline Phosphatase 62 U/L (38-126); Anion Gap 11 mmol/L; Blood Urea Nitrogen 17 mg/dL (9-20); Calcium 9.3 mg/dL (8.4-10.2); Carbon Dioxide 25 mmol/L (22-30); Chloride 104 mmol/L (98-107); Glucose 107 mg/dL (74-99); Potassium 4.4 mmol/L (3.5-5.1); Sodium 140 mmol/L (137-145); Total Bilirubin 0.6 mg/dL (0.2-1.3); Total Protein 6.7 g/dL (6.3-8.2)
--- NOTE | 2018-11-11 18:18 | P.GSHP ---
History of Present Illness H&P Date: 11/11/18 CHIEF COMPLAINT: Abdominal pain HISTORY OF PRESENT ILLNESS: The patient is a 63 year old male who was recently seen in the office, yesterday. He is status post laparoscopic lysis of adhesions 11/06/2018, 5 days ago. In fact he was seen in the office yesterday and was doing well. His at bedside reports that last night he developed acute onset abdominal pain after eating a sandwich. Actually he confirms eating a sandwich the last time upon his previous admission that prompted re-admission. He has been tolerating soups including fiber one cereal without problems prior to his abdominal pain. He reports inability to pass flatus Today he reports diffuse abdominal pain. He does have nausea. No emesis. He reports conservative management usually resolves his abdominal pain. PAST MEDICAL HISTORY: See list. PAST SURGICAL HISTORY: See list. MEDICATIONS: See list. ALLERGIES: See list. SOCIAL HISTORY: No illicit drug use FAMILY HISTORY: No reports of Crohn's disease or inflammatory bowel disease REVIEW OF ORGAN SYSTEMS: CONSTITUTIONAL: No fevers or chills. No recent weight loss. EYES: History of troubles with vision. No glasses. HEENT: No difficulties with hearing. No nosebleeds. No difficulty swallowing. RESPIRATORY: Past pneumonia. Denies any troubles with breathing or dyspnea on exertion. CARDIOVASCULAR: Denies any chest pain, palpitations, or recent heart attacks. GASTROINTESTINAL: Denies fatty food intolerance. Has change in bowel habits and gas bloat. GENITOURINARY: Denies any blood in urine. Has increased urinary frequency. NEUROLOGICAL: Denies any numbness or tingling along the distal extremities. No seizure disorders or headaches. MUSCULOSKELETAL: Has back pain, stiffness or joint arthritis. SKIN: Past t skin cancer. No rash. PSYCHIATRIC: Denies current depression or suicidal thoughts. ENDOCRINE: Denies current thyroid disorders. Denies any blood sugar glucose intolerance. HEME/LYMPHATIC: Denies any lumps and bumps around the neck. History of deep venous thrombosis. ALLERGY/IMMUNOLOGY: No immunoglobulin therapy. No immune deficiencies. BREAST: Denies current breast lumps, pain or nipple discharge. PHYSICAL EXAM: VITALS: Reviewed CONSTITUTIONAL: Well developed and in no acute distress. EYES: Conjuctivae without sclera icterus. Pupils are equally round and reactive to light. Extraocular movements grossly intact. HEAD, EARS, NOSE, THROAT: Moist buccal mucosa. Head is atraumatic, normocephalic. Hears conversational speech. No nasal drainage. Dry mouth NECK: Supple. No JV distention. No thyroidomegaly. RESPIRATORY: Non-labored respirations and equal bilateral excursions. No gross wheezes. CARDIOVASCULAR: Regular rate and rhythm. Palpable 2+ radial pulses. ABDOMEN: Soft, no peritonitis. Diffuse mild tenderness. LYMPH: No neck lymphadenopathy. MUSCULOSKELETAL: Range of motion bilateral upper extremities within normal limits. Nail and fingers with good capillary refill. SKIN: Warm and well perfused with good skin turgor. NEUROLOGIC: Cranial nerves I through XII grossly intact. Sensation upper and extremities intact. No focal or lateralizing signs. PSYCH: Appropriate affect. Alert and oriented to person, place and time. Displays appropriate insight. CLINCAL LABS: Reviewed. WBC count normal RADIOLOGY: Report reviewed without free air IMAGING: Independently reviewed with dilated small bowel consistent with ileus RECORDS: previous old records reviewed ASSESSMENT: 1. Ileus 2. Chronic abdominal pain 3. Dehydration PLAN: 1. Recommend IV fluids. 2. Hold NG tube unless emesis. 3. Pain medication as needed. 4. Recommend observation. Past Medical History Past Medical History: Cancer, Deep Vein Thrombosis (DVT), GERD/Reflux, Hyperlip idemia, Pneumonia Additional Past Medical History / Comment(s): SBOs, L lower leg DVT, blood clot behind R eye, basal skin cancer with removals, pneumonia with SIRS, sinus pro blems, low back pain, L foot plantar fascitis, urine flow issues at times, past hiatal hernia-(sx) History of Any Multi-Drug Resistant Organisms: C-DIFF Date of last positivie culture/infection: 2009 MDRO Source:: stool Past Surgical History: Adenoidectomy, Bowel Resection, Cholecystectomy, Hernia R epair, Tonsillectomy Additional Past Surgical History / Comment(s): Exploratory lap with lysis of adhesions, small bowel decompression, yamileth fundiplication, EGD, colonoscopi es/benign polypectomies, T&A twice, skin cancer removals, Past Anesthesia/Blood Transfusion Reactions: No Reported Reaction Past Psychological History: No Psychological Hx Reported Smoking Status: Never smoker Past Alcohol Use History: None Reported Past Drug Use History: None Reported - Past Family History Mother Family Medical History: Cancer, Diabetes Mellitus Additional Family Medical History / Comment(s): Emphysema, heart problems, COLON CANCER. Father Additional Family Medical History / Comment(s): COLON CA LIVER CA,MULTIPLE MYELOMA, bone cancer Medications and Allergies Home Medications Medication Instructions Recorded Confirmed Type Ascorbic Acid [Vitamin C] 1,000 mg PO QID 04/04/15 11/11/18 History Calcium Carbonate/Vitamin D3 2 tab PO BID 04/04/15 11/11/18 History [Calcium 600-Vit D3 400 Tablet] Multivitamins, Thera [Multivitamin 2 tab PO HS 04/04/15 11/11/18 History (formulary)] Fish Oil/Dha/Epa [Fish Oil 1,200 1 cap PO BID 05/26/16 11/11/18 History mg Fish Oil] Folic Acid 0.8 mg PO HS 05/26/16 11/11/18 History Selenium 200 mcg PO HS 08/25/17 11/11/18 History Aspirin 325 mg PO DAILY 03/30/18 11/11/18 History Sennosides/Docusate Sodium [Minerva 1 tab PO BID 03/30/18 11/11/18 History Colace] Ibuprofen [Motrin] 600 mg PO Q8HR PRN #30 tab 11/08/18 11/11/18 Rx Polyethylene Glycol 3350 [Miralax] 17 gm PO DAILY #30 packet 11/08/18 11/11/18 Rx Tamsulosin [Flomax] 0.4 mg PO DAILY #7 cap 11/08/18 11/11/18 Rx Allergies Allergy/AdvReac Type Severity Reaction Status Date / Time morphine Allergy Rash/Hives Verified 11/11/18 15:18 Penicillins Allergy Rash/Hives, Verified 11/11/18 15:18 WHEEZING Surgical - Exam Vital Signs Temp Pulse Resp BP Pulse Ox 98.1 F 102 H 20 123/82 95 11/11/18 14:38 11/11/18 14:38 11/11/18 14:38 11/11/18 14:38 11/11/18 14:38 Results - Labs 11/12/18 07:19 11/12/18 07:19 Abnormal Lab Results - Last 24 Hours (Table) 11/11/18 11/11/18 11/11/18 Range/Units 17:24 17:24 17:24 WBC 13.1 H (3.8-10.6) k/uL Neutrophils # 10.3 H (1.3-7.7) k/uL Glucose 107 H (74-99) mg/dL Urine Protein Trace H (Negative) Diabetes panel 11/11/18 Range/Units 17:24 Sodium 140 (137-145) mmol/L Potassium 4.4 (3.5-5.1) mmol/L Chloride 104 (98-107) mmol/L Carbon Dioxide 25 (22-30) mmol/L BUN 17 (9-20) mg/dL Creatinine 0.70 (0.66-1.25) mg/dL Glucose 107 H (74-99) mg/dL Calcium 9.3 (8.4-10.2) mg/dL AST 27 (17-59) U/L ALT 35 (21-72) U/L Alkaline Phosphatase 62 (38-126) U/L Total Protein 6.7 (6.3-8.2) g/dL Albumin 4.0 (3.5-5.0) g/dL Calcium panel 11/11/18 Range/Units 17:24 Calcium 9.3 (8.4-10.2) mg/dL Albumin 4.0 (3.5-5.0) g/dL Pituitary panel 11/11/18 Range/Units 17:24 Sodium 140 (137-145) mmol/L Potassium 4.4 (3.5-5.1) mmol/L Chloride 104 (98-107) mmol/L Carbon Dioxide 25 (22-30) mmol/L BUN 17 (9-20) mg/dL Creatinine 0.70 (0.66-1.25) mg/dL Glucose 107 H (74-99) mg/dL Calcium 9.3 (8.4-10.2) mg/dL Adrenal panel 11/11/18 Range/Units 17:24 Sodium 140 (137-145) mmol/L Potassium 4.4 (3.5-5.1) mmol/L Chloride 104 (98-107) mmol/L Carbon Dioxide 25 (22-30) mmol/L BUN 17 (9-20) mg/dL Creatinine 0.70 (0.66-1.25) mg/dL Glucose 107 H (74-99) mg/dL Calcium 9.3 (8.4-10.2) mg/dL Total Bilirubin 0.6 (0.2-1.3) mg/dL AST 27 (17-59) U/L ALT 35 (21-72) U/L Alkaline Phosphatase 62 (38-126) U/L Total Protein 6.7 (6.3-8.2) g/dL Albumin 4.0 (3.5-5.0) g/dL - Imaging Abdominal x-ray: report reviewed, image reviewed Assessment and Plan (1) High risk for readmission Current Visit: Yes Status: Acute Code(s): Z91.89 - OTH PERSONAL RISK FACTORS, NOT ELSEWHERE CLASSIFIED SNOMED Code(s): 422408668 (2) Chronic abdominal pain Current Visit: Yes Status: Acute Code(s): R10.9 - UNSPECIFIED ABDOMINAL PAIN; G89.29 - OTHER CHRONIC PAIN SNOMED Code(s): 914714285 (3) Ileus, postoperative Current Visit: Yes Status: Acute Code(s): K91.89 - OTH POSTPROCEDURAL COMPLICATIONS AND DISORDERS OF DGSTV SYS; K56.7 - ILEUS, UNSPECIFIED SNOMED Code(s): 349276921 (4) Leukocytosis Current Visit: Yes Status: Acute Code(s): D72.829 - ELEVATED WHITE BLOOD CELL COUNT, UNSPECIFIED SNOMED Code(s): 886148010 (5) Dehydration Current Visit: Yes Status: Acute Code(s): E86.0 - DEHYDRATION SNOMED Code(s): 51544078
[2018-11-11] MEDS ORDERED: NALOXONE 0.4 MG/ML 1 ML VIAL IV PRN (18:22)
[2018-11-11] MEDS ORDERED: ONDANSETRON 4 MG/2 ML VIAL IVP PRN (18:22)
[2018-11-11] MEDS ORDERED: ACETAMINOPHEN TAB 325 MG TAB PO PRN (18:22)
--- NOTE | 2018-11-11 18:36 | ED ---
Abdominal Pain HPI - General Chief Complaint: Abdominal Pain Stated Complaint: ABDOMINAL PAIN Time Seen by Provider: 11/11/18 15:47 Source: patient, EMS Mode of arrival: EMS Limitations: no limitations - History of Present Illness Initial Comments: Patient is a 63-year-old male who presents emergency Department with complaints of severe abdominal pain times this morning. Patient recently had a procedure on 11/05/[address] Felton to relieve adhesions causing a SBO. Patient states he had follow-up with her yesterday and was feeling okay other than normal soreness from the surgery. Patient states this morning he started having severe abdominal pain, distention of the abdomen, and diarrhea. Patient does admit to history of C. diff in the past. Patient admits to nausea. Rates his abdominal pain as 7/10. Patient denies any chest pain, shortness of breath, vomiting. No other complaints at this time. - Related Data Home Medications Medication Instructions Recorded Confirmed Ascorbic Acid [Vitamin C] 1,000 mg PO QID 04/04/15 11/11/18 Calcium Carbonate/Vitamin D3 2 tab PO BID 04/04/15 11/11/18 [Calcium 600-Vit D3 400 Tablet] Multivitamins, Thera [Multivitamin 2 tab PO HS 04/04/15 11/11/18 (formulary)] Fish Oil/Dha/Epa [Fish Oil 1,200 1 cap PO BID 05/26/16 11/11/18 mg Fish Oil] Folic Acid 0.8 mg PO HS 05/26/16 11/11/18 Selenium 200 mcg PO HS 08/25/17 11/11/18 Aspirin 325 mg PO DAILY 03/30/18 11/11/18 Sennosides/Docusate Sodium [Minerva 1 tab PO BID 03/30/18 11/11/18 Colace] Previous Rx's Medication Instructions Recorded Ibuprofen [Motrin] 600 mg PO Q8HR PRN #30 tab 11/08/18 Polyethylene Glycol 3350 [Miralax] 17 gm PO DAILY #30 packet 11/08/18 Tamsulosin [Flomax] 0.4 mg PO DAILY #7 cap 11/08/18 Allergies Allergy/AdvReac Type Severity Reaction Status Date / Time morphine Allergy Rash/Hives Verified 11/11/18 15:18 Penicillins Allergy Rash/Hives, Verified 11/11/18 15:18 WHEEZING Review of Systems ROS Statement: Those systems with pertinent positive or pertinent negative responses have been documented in the HPI. ROS Other: All systems not noted in ROS Statement are negative. Past Medical History Past Medical History: Cancer, Deep Vein Thrombosis (DVT), GERD/Reflux, Hyperlipidemia, Pneumonia Additional Past Medical History / Comment(s): SBOs, L lower leg DVT, blood clot behind R eye, basal skin cancer with removals, pneumonia with SIRS, sinus problems, low back pain, L foot plantar fascitis, urine flow issues at times, past hiatal hernia-(sx) History of Any Multi-Drug Resistant Organisms: C-DIFF Date of last positivie culture/infection: 2009 MDRO Source:: stool Past Surgical History: Adenoidectomy, Bowel Resection, Cholecystectomy, Hernia Repair, Tonsillectomy Additional Past Surgical History / Comment(s): Exploratory lap with lysis of adhesions, small bowel decompression, yamileth fundiplication, EGD, col onoscopies/benign polypectomies, T&A twice, skin cancer removals, Past Anesthesia/Blood Transfusion Reactions: No Reported Reaction Past Psychological History: No Psychological Hx Reported Smoking Status: Never smoker Past Alcohol Use History: None Reported Past Drug Use History: None Reported - Past Family History Mother Family Medical History: Cancer, Diabetes Mellitus Additional Family Medical History / Comment(s): Emphysema, heart problems, COLON CANCER. Father Additional Family Medical History / Comment(s): COLON CA LIVER CA,MULTIPLE MYELOMA, bone cancer General Exam - General Exam Comments Initial Comments: GENERAL: Well-appearing, well-nourished and in no acute distress, but appears in pain. HEAD: Atraumatic, normocephalic. EYES: Pupils equal round and reactive to light, extraocular movements intact, sclera anicteric, conjunctiva are normal. ENT: TMs normal, nares patent, oropharynx clear without exudates. Moist mucous membranes. NECK: Normal range of motion, supple without lymphadenopathy or JVD. LUNGS: Breath sounds clear to auscultation bilaterally and equal. No wheezes rales or rhonchi. HEART: Regular rate and rhythm without murmurs, rubs or gallops. ABDOMEN: Generalized abdominal tenderness. There is some ecchymosis from recent abdominal laparoscopy, along with 3 small surgical incisions. There is no erythema or signs of infection within the incisions. Mild abdominal distention. Soft, hypoactive bowel sounds. No guarding, no rebound. No masses appreciated. : Deferred EXTREMITIES: Normal range of motion, no pitting or edema. No clubbing or cyanosis. NEUROLOGICAL: Cranial nerves II through XII grossly intact. Normal speech, no rmal gait. PSYCH: Normal mood, normal affect. SKIN: Warm, Dry, normal turgor, no rashes or lesions noted. Limitations: no limitations Course Vital Signs 11/11/18 11/11/18 14:38 19:04 Temperature 98.1 F Pulse Rate 102 H 92 Respiratory 20 20 Rate Blood Pressure 123/82 119/66 O2 Sat by Pulse 95 94 L Oximetry Medical Decision Making - Medical Decision Making Patient is a 63-year-old male who presents with severe abdominal pain, nausea, diarrhea since this morning. Patient recently had surgery with Dr. Lynn to remove adhesions for a SBO on 11/05/18. Patient had follow-up with her yesterday and was feeling okay other than some soreness from the surgery. Patient states this morning he developed severe abdominal pain, diarrhea. Patient has history of C. diff. On exam patient has mildly distended abdomen, generalized abdominal tenderness. Patient has ecchymosis and 3 small surgical incisions from his surgery. No signs of infection coming from the incisions. Patient's CBC shows slight leukocytosis with WC at 13.1, likely reactive. CMP is within normal limits. Lactic acid is 1.8. UA has trace protein otherwise normal. KUB shows dilated small bowel with fluid levels consistent with severe ileus or SBO unchanged compared to his last exam. Case is discussed with Dr. Reynoso. Dr. Lynn was consulted and was in agreement with admission. Patient is in agreement with this plan. - Lab Data Result diagrams: 11/11/18 17:24 11/11/18 17:24 Lab Results 11/11/18 11/11/18 11/11/18 Range/Units 17:24 17:24 17:24 WBC 13.1 H (3.8-10.6) k/uL RBC 5.11 (4.30-5.90) m/uL Hgb 15.6 (13.0-17.5) gm/dL Hct 47.6 (39.0-53.0) % MCV 93.2 (80.0-100.0) fL MCH 30.6 (25.0-35.0) pg MCHC 32.8 (31.0-37.0) g/dL RDW 14.2 (11.5-15.5) % Plt Count 315 (150-450) k/uL Neutrophils % 79 % Lymphocytes % 9 % Monocytes % 8 % Eosinophils % 2 % Basophils % 1 % Neutrophils # 10.3 H (1.3-7.7) k/uL Lymphocytes # 1.1 (1.0-4.8) k/uL Monocytes # 1.0 (0-1.0) k/uL Eosinophils # 0.3 (0-0.7) k/uL Basophils # 0.1 (0-0.2) k/uL Sodium 140 (137-145) mmol/L Potassium 4.4 (3.5-5.1) mmol/L Chloride 104 (98-107) mmol/L Carbon Dioxide 25 (22-30) mmol/L Anion Gap 11 mmol/L BUN 17 (9-20) mg/dL Creatinine 0.70 (0.66-1.25) mg/dL Est GFR (CKD-EPI)AfAm >90 (>60 ml/min/1.73 sqM) Est GFR (CKD-EPI)NonAf >90 (>60 ml/min/1.73 sqM) Glucose 107 H (74-99) mg/dL Plasma Lactic Acid [place] 1.8 (0.7-2.0) mmol/L Calcium 9.3 (8.4-10.2) mg/dL Total Bilirubin 0.6 (0.2-1.3) mg/dL AST 27 (17-59) U/L ALT 35 (21-72) U/L Alkaline Phosphatase 62 (38-126) U/L Total Protein 6.7 (6.3-8.2) g/dL Albumin 4.0 (3.5-5.0) g/dL Urine Color Urine Appearance (Clear) Urine pH (5.0-8.0) Ur Specific [place] (1.001-1.035) Urine Protein (Negative) Urine Glucose (UA) (Negative) Urine Ketones (Negative) Urine Blood (Negative) Urine Nitrite (Negative) Urine Bilirubin (Negative) Urine Urobilinogen (<2.0) mg/dL Ur Leukocyte Esterase (Negative) C. difficile (EIA) Intrp (Negative) 07/10/19 07/10/19 Range/Units 17:24 17:45 WBC (3.8-10.6) k/uL RBC (4.30-5.90) m/uL Hgb (13.0-17.5) gm/dL Hct (39.0-53.0) % MCV (80.0-100.0) fL MCH (25.0-35.0) pg MCHC (31.0-37.0) g/dL RDW (11.5-15.5) % Plt Count (150-450) k/uL Neutrophils % % Lymphocytes % % Monocytes % % Eosinophils % % Basophils % % Neutrophils # (1.3-7.7) k/uL Lymphocytes # (1.0-4.8) k/uL Monocytes # (0-1.0) k/uL Eosinophils # (0-0.7) k/uL Basophils # (0-0.2) k/uL Sodium (137-145) mmol/L Potassium (3.5-5.1) mmol/L Chloride (98-107) mmol/L Carbon Dioxide (22-30) mmol/L Anion Gap mmol/L BUN (9-20) mg/dL Creatinine (0.66-1.25) mg/dL Est GFR (CKD-EPI)AfAm (>60 ml/min/1.73 sqM) Est GFR (CKD-EPI)NonAf (>60 ml/min/1.73 sqM) Glucose (74-99) mg/dL Plasma Lactic Acid [place] (0.7-2.0) mmol/L Calcium (8.4-10.2) mg/dL Total Bilirubin (0.2-1.3) mg/dL AST (17-59) U/L ALT (21-72) U/L Alkaline Phosphatase (38-126) U/L Total Protein (6.3-8.2) g/dL Albumin (3.5-5.0) g/dL Urine Color Yellow Urine Appearance Clear (Clear) Urine pH 5.5 (5.0-8.0) Ur Specific [place] 1.031 (1.001-1.035) Urine Protein Trace H (Negative) Urine Glucose (UA) Negative (Negative) Urine Ketones Negative (Negative) Urine Blood Negative (Negative) Urine Nitrite Negative (Negative) Urine Bilirubin Negative (Negative) Urine Urobilinogen <2.0 (<2.0) mg/dL Ur Leukocyte Esterase Negative (Negative) C. difficile (EIA) Intrp Negative (Negative) Disposition Clinical Impression: Small bowel obstruction, Abdominal pain, Diarrhea Disposition: ADMITTED IP TO THIS HOSP Condition: Stable Is patient prescribed a controlled substance at d/c from ED?: No Decision Date: 11/11/18 Decision Time: 18:36
[2018-11-11] MEDS ORDERED: SODIUM CHLORIDE 0.9% 1,000 ML IV ONE (19:33)
[2018-11-11] MEDS: SODIUM CHLORIDE 0.9% 1,000 ML IV SCH (20:25)
[2018-11-11] MEDS: METOCLOPRAMIDE 5 MG/ML 2 ML VIAL IVP SCH (20:29)
[2018-11-11] MEDS: HYDROmorphone 1 MG/ML 1 ML SYRINGE IVP PRN (21:26)
[2018-11-12] MEDS: HYDROmorphone 1 MG/ML 1 ML SYRINGE IVP PRN ×8 (00:38→23:08)
[2018-11-12] MEDS: METOCLOPRAMIDE 5 MG/ML 2 ML VIAL IVP SCH ×4 (02:34→19:38)
[2018-11-12 08:12] LABS: Basophils % (A) 0 %; Eosinophils # (A) 0.3 k/uL (0-0.7); Eosinophils % (A) 3 %; HCT 42.3 % (39.0-53.0); HGB 13.8 gm/dL (13.0-17.5); Lymphocytes # (A) 1.2 k/uL (1.0-4.8); Lymphocytes % (A) 15 %; MCHC 32.6 g/dL (31.0-37.0); MCV 94.9 fL (80.0-100.0); Monocytes % (A) 12 %; Neutrophils # (A) 5.2 k/uL (1.3-7.7); Neutrophils % (A) 66 %; Platelet Count 311 k/uL (150-450); RBC 4.46 m/uL (4.30-5.90); RDW 13.4 % (11.5-15.5); WBC 7.8 k/uL (3.8-10.6)
[2018-11-12 08:23] LABS: African American GFR (CKD) >90 (>60 ml/min/1.73 sqM); Anion Gap 9 mmol/L; Blood Urea Nitrogen 16 mg/dL (9-20); Calcium 8.9 mg/dL (8.4-10.2); Carbon Dioxide 26 mmol/L (22-30); Chloride 104 mmol/L (98-107); Glucose 111 mg/dL (74-99); Potassium 4.5 mmol/L (3.5-5.1); Sodium 139 mmol/L (137-145)
[2018-11-12] MEDS: SODIUM CHLORIDE 0.9% 1,000 ML IV SCH (10:43)
--- NOTE | 2018-11-12 13:23 | P.PN ---
<Donna Barone Chrystal - Last Filed: 11/12/18 13:23> Subjective Progress Note Date: 11/12/18 CHIEF COMPLAINT: abdominal pain HISTORY OF PRESENT ILLNESS: patient seen and examined at the bedside this morning. Patient reports passing flatus. He denies having a bowel movement. Patient reports generalized abdominal pain. Currently rating 6 out of 10. Patient states relief with IV Dilaudid. Patient is tolerating ice chips. Denies nausea or vomiting. PHYSICAL EXAM: VITAL SIGNS: Reviewed GENERAL: Well-developed in no acute distress. HEENT: No sclera icterus. Extraocular movements grossly intact. Moist buccal mucosa. Head is atraumatic, normocephalic. Hears conversational speech. No nasal drainage. NECK: Supple without lymphadenopathy. CHEST: Non-labored respirations and equal bilateral excursions. CARDIOVASCULAR: Regular rate with regular rhythm. Palpable 2+ radial pulses. ABDOMEN: Obese. Soft. Nondistended. Tenderness upon palpation of right and left lower quadrants. Surgical incisions healing well without drainage or signs of infection. ecchymosis to left lower quadrant. MUSCULOSKELETAL: No clubbing, cyanosis or edema. NEUROLOGIC: No focal or lateralizing signs. Cranial nerves II through XII grossly intact. PSYCH: Appropriate affect. Alert and oriented to person, place and time. SKIN: Well perfused. Good skin turgor. ASSESSMENT: 1. Small bowel obstruction 2. Recent laparoscopic lysis of adhesions, November 06, 2018 3. History of multiple bowel obstructions 4. History of exploratory laparotomy with lysis of adhesions, 2014 PLAN: 1. Begin clear liquid diet 2. Continue IV fluids 3. Pain control. Continue IV Dilaudid 4. Activity as tolerated 5. Incentive spirometry 6. Continue with conservative management. Further recommendations pending patient's clinical course Nurse practitioner note has been reviewed by physician. Signing provider agrees with the documented findings, assessment, and plan of care. Objective - Vital Signs Vital signs: Vital Signs Temp 98.3 F 11/12/18 07:32 Pulse 85 11/12/18 07:32 Resp 17 11/12/18 07:32 BP 121/73 11/12/18 07:32 Pulse Ox 90 L 11/12/18 07:32 Intake & Output 11/11/18 11/12/18 11/12/18 18:59 06:59 18:59 Intake Total 550 Balance 550 Weight 111.13 kg Intake: Intake, IV Titration 550 Amount Sodium Chloride 0.9% 1, 550 000 ml @ 50 mls/hr IV . Q20H [facility] Rx#:[id number] Other: Voiding Method Toilet # Voids 1 - Labs CBC & Chem 7: 11/12/18 07:19 11/12/18 07:19 Labs: Abnormal Lab Results - Last 24 Hours (Table) 11/11/18 11/11/18 11/11/18 Range/Units 17:24 17:24 17:24 WBC 13.1 H (3.8-10.6) k/uL Neutrophils # 10.3 H (1.3-7.7) k/uL Glucose 107 H (74-99) mg/dL Urine Protein Trace H (Negative) 11/12/18 Range/Units 07:19 WBC (3.8-10.6) k/uL Neutrophils # (1.3-7.7) k/uL Glucose 111 H (74-99) mg/dL Urine Protein (Negative) Microbiology - Last 24 Hours (Table) 11/11/18 17:45 Stool Culture - Preliminary Stool Assessment and Plan (1) Abdominal pain Current Visit: Yes Status: Acute Code(s): R10.9 - UNSPECIFIED ABDOMINAL PAIN SNOMED Code(s): 50138702 (2) Small bowel obstruction Current Visit: Yes Status: Acute Code(s): K56.69 - OTHER INTESTINAL OBSTRUCTION * DO NOT USE * SNOMED Code(s): 527350102 <Trinh Lynn N - Last Filed: 11/12/18 15:16> Subjective Advance diet to full liquid for dinner Objective - Vital Signs Vital signs: Vital Signs Temp 97.4 F L 11/12/18 14:22 Pulse 85 11/12/18 14:22 Resp 14 11/12/18 14:22 BP 119/71 11/12/18 14:22 Pulse Ox 92 L 11/12/18 14:22 Intake & Output 11/11/18 11/12/18 11/12/18 18:59 06:59 18:59 Intake Total 550 Balance 550 Weight 111.13 kg Intake: Intake, IV Titration 550 Amount Sodium Chloride 0.9% 1, 550 000 ml @ 50 mls/hr IV . Q20H [facility] Rx#:[id number] Other: Voiding Method Toilet # Voids 1 - Labs CBC & Chem 7: 11/12/18 07:19 11/12/18 07:19 Labs: Abnormal Lab Results - Last 24 Hours (Table) 11/11/18 11/11/18 11/11/18 Range/Units 17:24 17:24 17:24 WBC 13.1 H (3.8-10.6) k/uL Neutrophils # 10.3 H (1.3-7.7) k/uL Glucose 107 H (74-99) mg/dL Urine Protein Trace H (Negative) 11/12/18 Range/Units 07:19 WBC (3.8-10.6) k/uL Neutrophils # (1.3-7.7) k/uL Glucose 111 H (74-99) mg/dL Urine Protein (Negative) Microbiology - Last 24 Hours (Table) 11/11/18 17:45 Stool Culture - Preliminary Stool
[2018-11-12] MEDS: HEPARIN SODIUM,PORCINE 5,000 UNIT/ML 1 ML VIAL SQ SCH ×2 (15:11→23:08)
--- NOTE | 2018-11-12 15:15 | P.PN ---
Progress Note - Text Progress Note Date: 11/12/18 He is doing well and passing flatus AND had a bowel movement. Medications reviewed. Discontinue fish oil as combined with Aspirin increases bleeding and irritates the GI tract. Continue Reglan including upon discharge.
[2018-11-13] MEDS: METOCLOPRAMIDE 5 MG/ML 2 ML VIAL IVP SCH ×4 (01:15→19:05)
[2018-11-13] MEDS: HYDROmorphone 1 MG/ML 1 ML SYRINGE IVP PRN ×9 (01:15→22:04)
[2018-11-13] MEDS: PANTOPRAZOLE 40 MG/10 ML VIAL IVP SCH (07:52)
[2018-11-13] MEDS: HEPARIN SODIUM,PORCINE 5,000 UNIT/ML 1 ML VIAL SQ SCH ×2 (07:54→16:07)
--- NOTE | 2018-11-13 07:55 | XR ---
EXAMINATION TYPE: XR abdomen complete w decub DATE OF EXAM: 11/13/2018 COMPARISON: 11/11/2018 HISTORY: Abdominal pain TECHNIQUE: Supine, upright, and left side down lateral decubitus views of the abdomen are obtained. FINDINGS: There is persistent severe dilated small bowel loops with numerous air-fluid levels. Hypert rophic and degenerative change of the spine. Arthropathy of the hips. IMPRESSION: Findings are compatible with high-grade small bowel obstruction or severe ileus and appear relatively stable. Correlate clinically.
--- NOTE | 2018-11-13 10:13 | P.PN ---
Subjective Progress Note Date: 11/13/18 CHIEF COMPLAINT: Acute recurrent small bowel obstruction HISTORY OF PRESENT ILLNESS: The patient is a 63-year-old male who is status post robotic lysis of adhesions 11/06/2018, postoperative day 7. Initially was doing well and then came back with recurrent abdominal pain. Multiple abdominal films now demonstrated recurrent small bowel obstruction. He reports the pain is exact nature as he had now 2 weeks ago. No reports of emesis. He reports diffuse abdominal pain worse along the right upper abdomen. ROS: No reports of nausea and vomiting. No fevers or chills. No new chest pain. No productive sputum PHYSICAL EXAM: VITAL SIGNS: Reviewed CONSTITUTIONAL: Well developed and in no acute distress. EYES: Conjuctivae without sclera icterus. Extraocular movements grossly intact. HEAD, EARS, NOSE, THROAT: Moist buccal mucosa. Head is atraumatic, normocephalic. Hears conversational speech. No nasal drainage. NECK: Supple. No thyroidomegaly. RESPIRATORY: Non-labored respirations and equal bilateral excursions. CARDIOVASCULAR: Palpable 2+ radial pulses. Regular rate. Regular rhythm. ABDOMEN: Distended. No peritonitis. Tender along the right upper quadrant. MUSCULOSKELETAL: No gross deformity of the lower extremities noted. No clubbing. No cyanosis. SKIN: Good skin turgor. Well perfused. NEUROLOGIC: Cranial nerves I through XII grossly intact. No focal or lateralizing signs. PSYCH: Appropriate affect. Alert and oriented to person, place and time. STUDIES: Abdominal x-rays from all admissions including CT abdomen of all admissions in the last 2 weeks carefully reviewed consistent with diffusely dilated small bowel focal area along the right upper quadrant retroperitoneum. CLINCAL LABS: White blood cell count normal ASSESSMENT: 1. Recurrent small bowel obstruction PLAN: 1. In light of previous attempted laparoscopic approach, he would most benefit from exploratory laparotomy as he has recurrent small bowel obstruction likely related to a retroperitoneal adhesion 2. I discussed both benefits and risks of surgical intervention including placement of a Shelley catheter and nasogastric tube postoperatively. 3. Will keep nothing by mouth with exploration later today with laparotomy via open technique Objective - Vital Signs Vital signs: Vital Signs Temp 98.5 F 11/13/18 07:25 Pulse 87 11/13/18 07:25 Resp 16 11/13/18 07:25 BP 127/85 11/13/18 07:25 Pulse Ox 92 L 11/13/18 07:25 Intake & Output 11/12/18 11/13/18 11/13/18 18:59 06:59 18:59 Intake Total 1001 875 Balance 1001 875 Intake: Intake, IV Titration 525 875 Amount Sodium Chloride 0.9% 1, 525 875 000 ml @ 75 mls/hr IV . [id number] [facility] Rx#:[id number] Oral 476 Other: Voiding Method Toilet - Labs CBC & Chem 7: 11/12/18 07:19 11/12/18 07:19 Labs: Microbiology - Last 24 Hours (Table) 11/11/18 17:24 Blood Culture - Preliminary Blood No Growth after 24 hours Assessment and Plan (1) High risk for readmission Current Visit: Yes Status: Acute Code(s): Z91.89 - OTH PERSONAL RISK FACTORS, NOT ELSEWHERE CLASSIFIED SNOMED Code(s): 499138455 (2) Chronic abdominal pain Current Visit: Yes Status: Acute Code(s): R10.9 - UNSPECIFIED ABDOMINAL PAIN; G89.29 - OTHER CHRONIC PAIN SNOMED Code(s): 144920806 (3) Ileus, postoperative Current Visit: Yes Status: Acute Code(s): K91.89 - OTH POSTPROCEDURAL C OMPLICATIONS AND DISORDERS OF DGSTV SYS; K56.7 - ILEUS, UNSPECIFIED SNOMED Code(s): 060724467 (4) Leukocytosis Current Visit: Yes Status: Acute Code(s): D72.829 - ELEVATED WHITE BLOOD CELL COUNT, UNSPECIFIED SNOMED Code(s): 220787997 (5) Dehydration Current Visit: Yes Status: Acute Code(s): E86.0 - DEHYDRATION SNOMED Code(s): 58249720
[2018-11-13] MEDS: SODIUM CHLORIDE 0.9% 1,000 ML IV SCH (13:10)
--- NOTE | 2018-11-13 18:09 | P.PN ---
Progress Note - Text Progress Note Date: 11/13/18 Patient reevaluated this evening. He reports moderate passage of flatus. He reports his abdominal distention is resolving. His abdominal pain has improved. He is surrounded by his and family members. As a result, exploratory laparotomy canceled. Alternatively, should he continue to have obstructive symptoms, small bowel follow-through on Friday described.
[2018-11-14] MEDS: METOCLOPRAMIDE 5 MG/ML 2 ML VIAL IVP SCH ×4 (01:14→20:25)
[2018-11-14] MEDS: HEPARIN SODIUM,PORCINE 5,000 UNIT/ML 1 ML VIAL SQ SCH ×4 (01:14→23:40)
[2018-11-14] MEDS: HYDROmorphone 1 MG/ML 1 ML SYRINGE IVP PRN ×6 (01:14→23:40)
[2018-11-14 07:24] LABS: Basophils % (A) 0 %; Eosinophils # (A) 0.3 k/uL (0-0.7); Eosinophils % (A) 5 %; HCT 41.6 % (39.0-53.0); HGB 13.5 gm/dL (13.0-17.5); Lymphocytes # (A) 1.3 k/uL (1.0-4.8); Lymphocytes % (A) 21 %; MCHC 32.4 g/dL (31.0-37.0); MCV 95.7 fL (80.0-100.0); Mean Platelet Volume 7.1; Monocytes # (A) 0.6 k/uL (0-1.0); Monocytes % (A) 10 %; Neutrophils # (A) 3.6 k/uL (1.3-7.7); Neutrophils % (A) 60 %; Platelet Count 298 k/uL (150-450); RBC 4.35 m/uL (4.30-5.90); RDW 13.3 % (11.5-15.5); WBC 6.1 k/uL (3.8-10.6)
--- NOTE | 2018-11-14 07:26 | XR ---
EXAMINATION TYPE: XR abdomen 2V DATE OF EXAM: 11/14/2018 CLINICAL HISTORY: Ileus and pain TECHNIQUE: Supine and upright views of the abdomen are obtained. COMPARISON: Abdominal x-ray from yesterday and older studies. FINDINGS: Persistent markedly dilated gas-filled small bowel loops with air-fluid levels throughout t he central abdomen show interval progression from October 30 CT, not significantly changed from x-rays o ne day earlier. Gas is seen in nondistended colon along the periphery of the lower abdomen and pelvis . The lung bases are clear and the osseous structures are intact. Osseous structures are intact. IMPRESSION: High-grade distal small bowel obstruction remains present. No significant change from one day earlier. Correlate clinically.
[2018-11-14 07:46] LABS: African American GFR (CKD) >90 (>60 ml/min/1.73 sqM); Anion Gap 11 mmol/L; Blood Urea Nitrogen 14 mg/dL (9-20); Calcium 8.5 mg/dL (8.4-10.2); Carbon Dioxide 25 mmol/L (22-30); Chloride 103 mmol/L (98-107); Glucose 88 mg/dL (74-99); Potassium 4.1 mmol/L (3.5-5.1); Sodium 139 mmol/L (137-145)
[2018-11-14] MEDS: PANTOPRAZOLE 40 MG/10 ML VIAL IVP SCH (09:53)
[2018-11-14] MEDS: SODIUM CHLORIDE 0.9% 1,000 ML IV SCH (09:55)
--- NOTE | 2018-11-14 10:32 | P.PN ---
Subjective Progress Note Date: 11/14/18 Principal diagnosis: Bowel obstruction Patient doing about the same today. Still having mild mid abdominal discomfort. No nausea or vomiting currently. States he had a very small bowel movement. Today's x-rays reviewed with him and his and still show evidence of obstruc tion. Objective - Vital Signs Vital signs: Vital Signs Temp 98.2 F 11/14/18 07:46 Pulse 71 11/14/18 07:46 Resp 16 11/14/18 07:46 BP 131/75 11/14/18 07:46 Pulse Ox 96 11/14/18 07:46 Intake & Output 11/13/18 11/14/18 11/14/18 18:59 06:59 18:59 Intake Total 480 Balance 480 Intake: Oral 480 Other: Voiding Method Toilet - Exam Abdomen: Soft, minimal distention, mild mid abdominal tenderness - Labs CBC & Chem 7: 11/14/18 06:39 11/14/18 06:39 Labs: Abnormal Lab Results - Last 24 Hours (Table) 11/14/18 Range/Units 06:39 Creatinine 0.65 L (0.66-1.25) mg/dL Microbiology - Last 24 Hours (Table) 11/11/18 17:45 Stool Culture - Preliminary Stool 11/11/18 17:24 Blood Culture - Preliminary Blood No Growth after 48 hours Assessment and Plan (1) Small bowel obstruction Narrative/Plan: Keep nothing by mouth for now. Ambulate. Possible small bowel series versus laparotomy early next week. Current Visit: Yes Status: Acute Code(s): K56.69 - OTHER INTESTINAL OBSTRUCTION * DO NOT USE * SNOMED Code(s): 502685711
[2018-11-15] MEDS: HYDROmorphone 1 MG/ML 1 ML SYRINGE IVP PRN ×6 (03:19→22:20)
[2018-11-15] MEDS: METOCLOPRAMIDE 5 MG/ML 2 ML VIAL IVP SCH ×4 (03:19→23:17)
[2018-11-15] MEDS: SODIUM CHLORIDE 0.9% 1,000 ML IV SCH ×2 (04:55→18:46)
[2018-11-15 08:00] LABS: African American GFR (CKD) >90 (>60 ml/min/1.73 sqM); Anion Gap 11 mmol/L; Blood Urea Nitrogen 15 mg/dL (9-20); Calcium 8.6 mg/dL (8.4-10.2); Carbon Dioxide 27 mmol/L (22-30); Chloride 103 mmol/L (98-107); Glucose 79 mg/dL (74-99); Potassium 4.1 mmol/L (3.5-5.1); Sodium 141 mmol/L (137-145)
[2018-11-15 08:15] LABS: Basophils # (A) 0.1 k/uL (0-0.2); Basophils % (A) 1 %; Eosinophils # (A) 0.3 k/uL (0-0.7); Eosinophils % (A) 5 %; HCT 42.3 % (39.0-53.0); Lymphocytes # (A) 1.4 k/uL (1.0-4.8); Lymphocytes % (A) 23 %; MCH 30.8 pg (25.0-35.0); MCHC 33.2 g/dL (31.0-37.0); MCV 92.8 fL (80.0-100.0); Mean Platelet Volume 9.2; Monocytes # (A) 0.6 k/uL (0-1.0); Monocytes % (A) 9 %; Neutrophils # (A) 3.7 k/uL (1.3-7.7); Neutrophils % (A) 60 %; Platelet Count 291 k/uL (150-450); RBC 4.55 m/uL (4.30-5.90); RDW 13.9 % (11.5-15.5); WBC 6.2 k/uL (3.8-10.6)
[2018-11-15] MEDS: PANTOPRAZOLE 40 MG/10 ML VIAL IVP SCH (10:02)
[2018-11-15] MEDS: HEPARIN SODIUM,PORCINE 5,000 UNIT/ML 1 ML VIAL SQ SCH ×3 (10:02→23:17)
--- NOTE | 2018-11-15 12:46 | P.PN ---
Subjective Progress Note Date: 11/15/18 Principal diagnosis: Bowel obstruction Patient doing about the same today. He did have a small bowel movement. Pain is slightly improved. Objective - Vital Signs Vital signs: Vital Signs Temp 97.9 F 11/15/18 08:00 Pulse 71 11/15/18 08:00 Resp 14 11/15/18 00:57 BP 116/71 11/15/18 08:00 Pulse Ox 92 L 11/15/18 08:00 Intake & Output 11/14/18 11/15/18 11/15/18 18:59 06:59 18:59 Intake Total 1100 Balance 1100 Weight 111.13 kg Intake: Intake, IV Titration 1100 Amount Sodium Chloride 0.9% 1, 1100 000 ml @ 75 mls/hr IV . [id number] [facility] Rx#:[id number] Other: Voiding Method Toilet # Voids 0 3 - Exam Abdomen: Soft, mild distention, mild tenderness - Labs CBC & Chem 7: 11/15/18 06:30 11/15/18 06:30 Labs: Abnormal Lab Results - Last 24 Hours (Table) 11/15/18 Range/Units 06:30 Creatinine 0.63 L (0.66-1.25) mg/dL Microbiology - Last 24 Hours (Table) 11/11/18 17:24 Blood Culture - Preliminary Blood No Growth after 72 hours Assessment and Plan (1) Small bowel obstruction Narrative/Plan: Continue nothing by mouth. Recheck x-rays tomorrow. Ambulate. Current Visit: Yes Status: Acute Code(s): K56.69 - OTHER INTESTINAL OBSTRUC TION * DO NOT USE * SNOMED Code(s): 697705334
[2018-11-16] MEDS: METOCLOPRAMIDE 5 MG/ML 2 ML VIAL IVP SCH ×4 (05:13→22:27)
[2018-11-16] MEDS: HYDROmorphone 1 MG/ML 1 ML SYRINGE IVP PRN ×3 (07:09→13:43)
[2018-11-16] MEDS: PANTOPRAZOLE 40 MG/10 ML VIAL IVP SCH (08:10)
[2018-11-16] MEDS: HEPARIN SODIUM,PORCINE 5,000 UNIT/ML 1 ML VIAL SQ SCH ×2 (08:11→17:23)
--- NOTE | 2018-11-16 08:16 | P.PN ---
Subjective Progress Note Date: 11/16/18 CHIEF COMPLAINT: Acute recurrent small bowel obstruction HISTORY OF PRESENT ILLNESS: The patient is a 63-year-old male who is status post robotic lysis of adhesions 11/06/2018. Initially he was doing well however he reports recurrent symptoms. Further discussion, he reports actually a 30-40 year history of chronic small bowel obstructions. In fact, he has recurrent small bowel obstructions prior to his first laparotomy over 12 years ago. "My belly really started giving me problems after being food poisoned at the age of 14." I personally reviewed his imaging including CT scans and abdominal x-rays at least from 2011 with a consistent focal point along the right upper quadrant. He also confirm chronic intermittent pain of the right side of the abdomen. He reports having a small bowel movement and flatus however abdominal x-rays continue to prove persistent high-grade small bowel obstruction. PHYSICAL EXAM: VITAL SIGNS: Reviewed CONSTITUTIONAL: Well developed and in no acute distress. EYES: Conjuctivae without sclera icterus. Extraocular movements grossly intact. HEAD, EARS, NOSE, THROAT: Moist buccal mucosa. Head is atraumatic, normocephalic. Hears conversational speech. No nasal drainage. NECK: Supple. No thyroidomegaly. RESPIRATORY: Non-labored respirations and equal bilateral excursions. CARDIOVASCULAR: Palpable 2+ radial pulses. Regular rate. Regular rhythm. ABDOMEN: Obese and mildly Distended. No peritonitis. Mild tenderness along the right upper abdomen. MUSCULOSKELETAL: No gross deformity of the lower extremities noted. No clubbing. No cyanosis. SKIN: Good skin turgor. Well perfused. NEUROLOGIC: Cranial nerves I through XII grossly intact. No focal or lateralizing signs. PSYCH: Appropriate affect. Alert and oriented to person, place and time. STUDIES: Abdominal x-rays from today 11/16/2018 personally reviewed still demonstrating multiple air-fluid levels as well as dilated small bowel consistent with small bowel obstruction. CLINCAL LABS: White blood cell count normal ASSESSMENT: 1. Recurrent small bowel obstruction PLAN: 1. I had a long discussion with him including failure of conservative management despite bowel rest. All of his films were reviewed including his history of chronic small bowel obstructions over 30+ years. Despite conservative measures and laparoscopic technique, open laparotomy described. 2. Benefits and risks also reviewed including placement of a nasogastric tube and Shelley catheter. Objective - Vital Signs Vital signs: Vital Signs Temp 98.5 F 11/16/18 07:00 Pulse 78 11/16/18 07:00 Resp 16 11/16/18 07:00 BP 134/80 11/16/18 07:00 Pulse Ox 90 L 11/16/18 07:00 Intake & Output 11/15/18 11/16/18 11/16/18 18:59 06:59 18:59 Weight 111.13 kg Other: # Voids 2 - Labs CBC & Chem 7: 11/15/18 06:30 11/15/18 06:30 Labs: Microbiology - Last 24 Hours (Table) 11/11/18 17:24 Blood Culture - Preliminary Blood No Growth after 96 hours 11/11/18 17:45 Stool Culture - Final Stool Assessment and Plan (1) High risk for readmission Current Visit: Yes Status: Acute Code(s): Z91.89 - OTH PERSONAL RISK FACTORS, NOT ELSEWHERE CLASSIFIED SNOMED Code(s): 555199405 (2) Chronic abdominal pain Current Visit: Yes Status: Acute Code(s): R10.9 - UNSPECIFIED ABDOMINAL PAIN; G89.29 - OTHER CHRONIC PAIN SNOMED Code(s): 498709897 (3) Ileus, postoperative Current Visit: Yes Status: Acute Code(s): K91.89 - OTH POSTPROCEDURAL COMPLICATIONS AND DISORDERS OF DGSTV SYS; K56.7 - ILEUS, UNSPECIFIED SNOMED Code(s): 751666014 (4) Leukocytosis Current Visit: Yes Status: Acute Code(s): D72.829 - ELEVATED WHITE BLOOD CELL COUNT, UNSPECIFIED SNOMED Code(s): 183416723 (5) Dehydration Current Visit: Yes Status: Acute Code(s): E86.0 - DEHYDRATION SNOMED Code(s): 88199195
--- NOTE | 2018-11-16 10:08 | XR ---
2 view abdomen HISTORY: Follow-up bowel obstruction 2 views of the abdomen submitted on 4 images Correlation to prior abdomen 11/14/2018 There are multiple air-fluid levels, gas-distended loops of small bowel. No evident pneumoperitoneum. Lung bases are stable. Degenerative disc changes are present in the visualized spine. IMPRESSION: Small bowel obstruction findings are again noted.
[2018-11-16] MEDS ORDERED: IV FLUID CONTINUATION 600 ML IV ONE (14:35)
[2018-11-16] MEDS ORDERED: MIDAZOLAM (PF) 2 MG/2 ML VIAL IV ONE (15:20)
[2018-11-16] MEDS ORDERED: fentaNYL (PF) 50 MCG/ML 2 ML AMP IV ONE ×2 (15:25→15:30)
[2018-11-16] MEDS ORDERED: NALBUPHINE 10 MG/ML (1 ML AMP) IV PRN (15:37)
[2018-11-16] MEDS ORDERED: ONDANSETRON 4 MG/2 ML VIAL IVP PRN (15:37)
[2018-11-16] MEDS ORDERED: NALOXONE 0.4 MG/ML 1 ML VIAL IV PRN (15:37)
[2018-11-16] MEDS ORDERED: LIDOCAINE 1% INJ 10MG/ML (20 ML MDV) ONE (15:44)
[2018-11-16] MEDS ORDERED: NEOSTIGMINE 1 MG/ML 10 ML VIAL ONE (15:44)
[2018-11-16] MEDS ORDERED: SUCCINYLCHOLINE CHLORIDE 100 MG/5 ML SYR IV ONE (15:44)
[2018-11-16] MEDS ORDERED: ROCURONIUM BROMIDE 10 MG/ML 10 ML VIAL IV ONE (15:44)
[2018-11-16] MEDS ORDERED: PROPOFOL 10 MG/ML 20 ML VIAL IV ONE (15:44)
[2018-11-16] MEDS ORDERED: DEXAMETHASONE SOD PHOS (MDV) 100 MG/10 ML VIAL ONE (15:44)
[2018-11-16] MEDS ORDERED: ONDANSETRON 4 MG/2 ML VIAL ONE (15:44)
[2018-11-16] MEDS ORDERED: GLYCOPYRROLATE 0.2 MG/ML 2 ML VIAL ONE (15:44)
[2018-11-16] MEDS ORDERED: fentaNYL (PF) 50 MCG/ML 2 ML AMP ONE (15:44)
[2018-11-16] MEDS ORDERED: HYDROmorphone (PF) 1 MG/ML ONE (15:44)
[2018-11-16] MEDS ORDERED: MIDAZOLAM 2 MG/2 ML VIAL ONE (15:44)
[2018-11-16] MEDS ORDERED: SODIUM CHLORIDE 0.9% 50 ML with ceFAZolin 2 GM IV ONE ×2 (16:05)
[2018-11-16] MEDS ORDERED: LACTATED RINGERS 1,000 ML IV ONE ×3 (18:00→19:20)
--- NOTE | 2018-11-16 20:18 | P.OP ---
Date of Procedure: 11/16/18 Description of Procedure: SURGEON: HORTENCIA MOTA MD RADIOLOGIC TECHNICIAN: NONE. PREOPERATIVE DIAGNOSIS: 1. Recurrent chronic high-grade small bowel obstruction with chronic abdominal pain 2. History of multiple abdominal surgeries 3. Gastroesophageal reflux disease 4. History of DVT, left lower leg 5. Pre-existing obstructive uropathy 6. Severe sigmoid diverticulosis POSTOPERATIVE DIAGNOSIS: 1. Recurrent chronic high-grade small bowel obstruction with chronic abdominal pain 2. History of multiple abdominal surgeries 3. Gastroesophageal reflux disease 4. History of DVT, left lower leg 5. Pre-existing obstructive uropathy 6. Severe sigmoid diverticulosis 7. Phlegmon of right lower quadrant with dense inflammatory tissue, severe malignant peritoneal adhesions 8. Abdominal ascites OPERATION: 1. Extensive open lysis of adhesions over 3.5 hours 2. Application of 20-cm PREVENA wound VAC Estimated Blood Loss (ml): 30 Pathology: none sent Condition: stable Disposition: floor Operative Findings: 1. Severe phlegmonous reaction with dense inflammatory tissue and calcification involving the right lower quadrant and retroperitoneum highly suspicious of previous perforated phenomenon appendicitis versus diverticulitis 2. Malignant adhesions and interloop adhesions of the right lower quadrant consistent with previous diagnostic studies including CT scans with high grade small bowel obstruction 3. Chronically dilated and thickened small bowel loops over 6 cm identified of the left upper quadrant and right upper quadrant completely decompressed after extensive lysis of adhesions 4. Small bowel decompressed of air and enteric contents via nasogastric tube over 1 L of bile 5. All lysis of adhesions addressed from ligament of Treitz to cecum without enterotomy or colotomy 6. Dense calcification of the right lower quadrant involving the mesentery also lysed 7. Ascending transverse descending colon unremarkable with the exception of severe sigmoid diverticulosis 8. Appendix obliterated from dense inflammatory reaction as patient reports no prior appendectomy, highly suspicious of previous appendicitis 7. Intraoperative images captured and shared with family INDICATIONS: The patient is a 63-year-old male who presents with chronic abdominal pain including over 30 year history of chronic recurrent small bowel obstructions. After extensive discussion, patient does report all of his abdominal pain started at the age of [age] years old after having food poisoning and never really having any medical attention at that time. He has prior history of cholecystectomy including open laparotomy done in the last 12 years but still had recurrent right lower quadrant abdominal pain. Over one week ago, he had diagnostic laparoscopy including laparoscopic adhesions and had done very well. However he then returned back to the hospital within 1 week with recurrent abdominal pain including high-grade small bowel obstruction. He had persistent high-grade small bowel obstruction despite conservative measures. Surgical intervention with open exploratory laparotomy with lysis of adhesions and possible bowel resection was reviewed in detail. Benefits and risks of the procedures were discussed. Informed consent was obtained. DESCRIPTION: The patient was brought to the operating room. After general induction, the abdomen was then prepped and draped in standard sterile fashion using chlorhexidine. Ioban draping was also placed. Prior to incision, a timeout protocol was confirmed with surgical team regarding patient's name including procedures to be performed. Preoperative medications were confirmed. Attention was brought to the abdomen whereby a well healed lower midline incision was encountered. Next, a #10 blade was used to enter along the epigastrium and extended down to the pubis. Carefully the abdomen was entered using electro- Bovie cautery. The small bowel was moderately dilated over 5 cm in the mid abdomen. Since interloop adhesions were found throughout the jejunum including severe phlegmon and calcification of adhesions involving the mesentery and loops of bowel of the right lower quadrant. The terminal ileum was adherent to the pelvic sidewall including the sigmoid colon. Separately small bowel loop was decompressed and adherent to the retroperitoneum and spine and sharply lysed using Metzenbaum scissors. The severity of the adhesions including pinpoint obstruction was confirmed involving the entire terminal ileum with dense calcifications from previous phlegmon. The appendix was obliterated from the dense adhesions. Using a combination of blunt dissection including sharp dissection, all adhesions were disrupted including interloop adhesions. Extensive lysis of adhesions over 3-1/2 hours was performed. Abdominal ascites was also aspirated from the abdomen. No peritoneal studding was identified. The stomach was palpated whereby the nasogastric tube was advanced to the midportion of the stomach and secured. All bowel was decompressed of air and enteric contents as the contents was milked towards the stomach. Very dense and thickened small bowel was found at the terminal ileum and widely patent. The greater omentum was inspected to identify any potential hernias. Majority of his greater omentum was still intact. The greater omentum was tucked along the pelvis. The abdomen was inspected for hemostasis and closed using 2 sutures of double- stranded 0 PDS from inferior to superiorly. The incision around the umbilicus was reapproximated using 3-0 Vicryl in an interrupted subcuticular fashion including the rest of the incision. The skin was cleansed and the Ioban draping was removed. An PREVENA wound vac surgical dressing was placed. At the end of the procedure, needle, sponge, and instrument count had been verified correct by the surgical consultant. An abdominal binder was placed. The patient was extubated and taken to the postanesthesia care unit in stable condition. The patient's family was made aware of the intraoperative findings and pleased with the level of care.
[2018-11-16] MEDS: SODIUM CHLORIDE 0.9% 1,000 ML IV SCH (22:28)
[2018-11-17] MEDS: HEPARIN SODIUM,PORCINE 5,000 UNIT/ML 1 ML VIAL SQ SCH ×3 (00:51→16:23)
[2018-11-17] MEDS: METOCLOPRAMIDE 5 MG/ML 2 ML VIAL IVP SCH ×4 (00:55→17:26)
[2018-11-17] MEDS: ROPIVACAINE 300 MG, HYDROMORPHONE (PF) 5 MG in SODIUM CHLORIDE 0.9% 190 ML EPIDURAL PRN ×2 (00:56→16:07)
[2018-11-17] MEDS ORDERED: ACETAMINOPHEN IV (For NPO) 1,000 MG in EMPTY BAG 1 BAG IVPB STA (02:35)
[2018-11-17] MEDS: PANTOPRAZOLE 40 MG/10 ML VIAL IVP SCH (07:06)
[2018-11-17 07:33] LABS: Basophils % (A) 0 %; Eosinophils # (A) 0.1 k/uL (0-0.7); Eosinophils % (A) 1 %; HCT 44.5 % (39.0-53.0); HGB 14.2 gm/dL (13.0-17.5); Lymphocytes # (A) 0.9 k/uL (1.0-4.8); Lymphocytes % (A) 8 %; MCH 30.4 pg (25.0-35.0); MCHC 31.9 g/dL (31.0-37.0); MCV 95.4 fL (80.0-100.0); Mean Platelet Volume 6.7; Monocytes # (A) 0.8 k/uL (0-1.0); Monocytes % (A) 7 %; Neutrophils # (A) 9.3 k/uL (1.3-7.7); Neutrophils % (A) 82 %; Platelet Count 373 k/uL (150-450); RBC 4.66 m/uL (4.30-5.90); RDW 13.3 % (11.5-15.5); WBC 11.3 k/uL (3.8-10.6)
[2018-11-17 07:46] LABS: African American GFR (CKD) >90 (>60 ml/min/1.73 sqM); Anion Gap 11 mmol/L; Blood Urea Nitrogen 14 mg/dL (9-20); Calcium 8.2 mg/dL (8.4-10.2); Carbon Dioxide 21 mmol/L (22-30); Chloride 108 mmol/L (98-107); Glucose 108 mg/dL (74-99); Potassium 4.3 mmol/L (3.5-5.1); Sodium 140 mmol/L (137-145)
[2018-11-17] MEDS ORDERED: ACETAMINOPHEN IV (For NPO) 1,000 MG in EMPTY BAG 1 BAG IVPB PRN (08:43)
[2018-11-17] MEDS ORDERED: SODIUM CHLORIDE 0.9% 500 ML 500 ML IV ONE (12:03)
--- NOTE | 2018-11-17 12:08 | P.PN ---
<LizabethDonna Chrystal - Last Filed: 11/17/18 12:07> Subjective Progress Note Date: 11/17/18 CHIEF COMPLAINT: abdominal pain HISTORY OF PRESENT ILLNESS: patient seen and examined at the bedside this morning. Patient is status post extensive open lysis of adhesions. POD #1. Patient reports abdominal pain is tolerable this morning. Currently rating 5/10. Epidural is infusing at 9 mL an hour. NG to LIS with bilious drainage. Patient denies passing flatus or having bowel movement. Temperature this morning 100.4. BP 97/61. Heart rate in the 90s. WBC 11.3. Hemoglobin 14.2. PHYSICAL EXAM: VITAL SIGNS: Reviewed GENERAL: Well-developed in no acute distress. HEENT: No sclera icterus. Extraocular movements grossly intact. Moist buccal mucosa. Head is atraumatic, normocephalic. Hears conversational speech. No nasal drainage. NECK: Supple without lymphadenopathy. CHEST: Non-labored respirations and equal bilateral excursions. CARDIOVASCULAR: Regular rate with regular rhythm. Palpable 2+ radial pulses. ABDOMEN: Obese. Soft. Nondistended. Appropriate surgical tenderness. PREVENA to midline incision. MUSCULOSKELETAL: No clubbing, cyanosis or edema. NEUROLOGIC: No focal or lateralizing signs. Cranial nerves II through XII grossly intact. PSYCH: Appropriate affect. Alert and oriented to person, place and time. SKIN: Well perfused. Good skin turgor. ASSESSMENT: 1. Small bowel obstruction 2. Recent laparoscopic lysis of adhesions, November 06, 2018 3. History of multiple bowel obstructions 4. History of exploratory laparotomy with lysis of adhesions, 2014 PLAN: 1. NPO. Await bowel function 2. Continue NG to LIS 3. Continue IV fluids. 500cc bolus x 1 4. Begin PPN 5. Incentive spirometry 6. Activity as tolerated 7. Pain control. Continue epidural. DC POD #3 8. Continue duran catheter. Remove after epidural is DC on POD #3. Accurate I&O Nurse practitioner note has been reviewed by physician. Signing provider agrees with the documented findings, assessment, and plan of care. Objective - Vital Signs Vital signs: Vital Signs Temp 100.4 F H 11/17/18 06:42 Pulse 95 11/17/18 06:42 Resp 18 11/17/18 07:25 BP 97/61 11/17/18 06:42 Pulse Ox 95 11/17/18 06:42 Intake & Output 11/16/18 11/17/18 11/17/18 18:59 06:59 18:59 Intake Total 3270 430.133 Output Total 1405 Balance 3270 -974.867 Weight 111.13 kg Intake: IV 3270 400 Sodium Chloride 0.9% 1, 600 000 ml @ 75 mls/hr IV . [id number] [facility] Rx#:[id number] Intake, IV Titration 30.133 Amount Ropivacaine 300 mg 30.133 Hydromorphone (Pf) 5 mg In Sodium Chloride 0.9% 190 ml @ Per Protocol EPIDURAL .Q0M PRN Rx#: [id number] Output: Gastric Drainage 100 Drainage 250 Right NARES 250 Urine 1025 Estimated Blood Loss 30 Other: Voiding Method Indwelling Catheter Indwelling Catheter # Voids 2 - Labs CBC & Chem 7: 11/17/18 07:16 11/17/18 07:16 Labs: Abnormal Lab Results - Last 24 Hours (Table) 11/17/18 11/17/18 Range/Units 07:16 07:16 WBC 11.3 H (3.8-10.6) k/uL Neutrophils # 9.3 H (1.3-7.7) k/uL Lymphocytes # 0.9 L (1.0-4.8) k/uL Chloride 108 H (98-107) mmol/L Carbon Dioxide 21 L (22-30) mmol/L Glucose 108 H (74-99) mg/dL Calcium 8.2 L (8.4-10.2) mg/dL Microbiology - Last 24 Hours (Table) 11/11/18 17:24 Blood Culture - Preliminary Blood No Growth after 120 hours 11/11/18 17:45 Stool Culture - Final Stool Assessment and Plan (1) Abdominal pain Current Visit: Yes Status: Acute Code(s): R10.9 - UNSPECIFIED ABDOMINAL PAIN SNOMED Code(s): 21088216 (2) Small bowel obstruction Current Visit: Yes Status: Acute Code(s): K56.69 - OTHER INTESTINAL OBSTRUCTION * DO NOT USE * SNOMED Code(s): 715592704 <Trinh Lynn N - Last Filed: 11/17/18 19:54> Subjective Patient seen and evaluated this evening. He reports moderate pain. Per discussion with nursing, epidural was temporarily off and malfunctioning. No report flatus or bowel movements. Patient did have temperature. Incentive spirometry advised for atelectasis. Overall care plan reviewed i with the patient ncluding will need prolonged full liquid diet for at least 2 weeks for bowel recovery. Additionally, anticipated hospitalization at least for the next 3-4 days reviewed. Ambulation encouraged to resolve ileus. Home healthcare assessment described. Anticipate time off from work at least 4 to 6 weeks Objective - Vital Signs Vital signs: Vital Signs Temp 98.5 F 11/17/18 14:11 Pulse 79 11/17/18 14:11 Resp 16 11/17/18 14:11 BP 115/72 11/17/18 14:11 Pulse Ox 95 11/17/18 14:11 Intake & Output 11/17/18 11/17/18 11/18/18 06:59 18:59 06:59 Intake Total 430.133 114.90 Output Total 1405 Balance -974.867 114.90 Weight 111.13 kg Intake: IV 400 Intake, IV Titration 30.133 114.90 Amount Ropivacaine 300 mg 30.133 114.90 Hydromorphone (Pf) 5 mg In Sodium Chloride 0.9% 190 ml @ Per Protocol EPIDURAL .Q0M PRN Rx#: [id number] Output: Gastric Drainage 100 Drainage 250 Right NARES 250 Urine 1025 Estimated Blood Loss 30 Other: Voiding Method Indwelling Catheter Indwelling Catheter - Labs CBC & Chem 7: 11/17/18 07:16 11/17/18 12:20 Labs: Abnormal Lab Results - Last 24 Hours (Table) 11/17/18 11/17/18 11/17/18 Range/Units 07:16 07:16 12:20 WBC 11.3 H (3.8-10.6) k/uL Neutrophils # 9.3 H (1.3-7.7) k/uL Lymphocytes # 0.9 L (1.0-4.8) k/uL Chloride 108 H (98-107) mmol/L Carbon Dioxide 21 L (22-30) mmol/L Glucose 108 H (74-99) mg/dL POC Glucose (mg/dL) (75-99) mg/dL Calcium 8.2 L (8.4-10.2) mg/dL ALT (21-72) U/L Total Protein (6.3-8.2) g/dL Albumin 2.7 L (3.5-5.0) g/dL 11/17/18 11/17/18 Range/Units 12:20 17:42 WBC (3.8-10.6) k/uL Neutrophils # (1.3-7.7) k/uL Lymphocytes # (1.0-4.8) k/uL Chloride 108 H (98-107) mmol/L Carbon Dioxide 20 L (22-30) mmol/L Glucose 121 H (74-99) mg/dL POC Glucose (mg/dL) 152 H (75-99) mg/dL Calcium 8.3 L (8.4-10.2) mg/dL ALT 95 H (21-72) U/L Total Protein 5.0 L (6.3-8.2) g/dL Albumin 2.6 L (3.5-5.0) g/dL Microbiology - Last 24 Hours (Table) 11/11/18 17:24 Blood Culture - Final Blood No Growth after 144 hours 11/11/18 17:45 Stool Culture - Final Stool Assessment and Plan (1) High risk for readmission Current Visit: Yes Status: Acute Code(s): Z91.89 - OTH PERSONAL RISK FACTORS, NOT ELSEWHERE CLASSIFIED SNOMED Code(s): 039867406 (2) Chronic abdominal pain Current Visit: Yes Status: Acute Code(s): R10.9 - UNSPECIFIED ABDOMINAL PAIN; G89.29 - OTHER CHRONIC PAIN SNOMED Code(s): 781320587 (3) Ileus, postoperative Current Visit: Yes Status: Acute Code(s): K91.89 - OTH POSTPROCEDURAL COMPLICATIONS AND DISORDERS OF DGSTV SYS; K56.7 - ILEUS, UNSPECIFIED SNOMED Code(s): 275206023 (4) Leukocytosis Current Visit: Yes Status: Acute Code(s): D72.829 - ELEVATED WHITE BLOOD CELL COUNT, UNSPECIFIED SNOMED Code(s): 043714384 (5) Dehydration Current Visit: Yes Status: Acute Code(s): E86.0 - DEHYDRATION SNOMED Code(s): 57881594
[2018-11-17 13:08] LABS: Ionized Calcium 5.1 mg/dL (4.5-5.3)
--- NOTE | 2018-11-17 13:18 | P.PN ---
Progress Note - Text Progress Note Date: 11/17/18 Postoperative day # status post explarotory laparotomy/epidural catheter placed for postoperative analgesia, patient doing well epidural site okay, patient currently on combination of epidural infusion solution of Ropivacaine 0.0625% and Dilaudid 20 g per mL the infusion rate at 9 ml per hour , patient had no motor deficit epidural site okay , vital signs stable ,VAS 3-4 /10 , Assessment and plan= post operative day #1 patient doing well ,pain well controlled , there is no anesthesia related complications, we'll continue current management was seen at 7 AM in the morning 11/17/2018
[2018-11-17 13:22] LABS: Albumin 2.7 g/dL (3.5-5.0); Magnesium 1.9 mg/dL (1.6-2.3); Phosphorus 3.5 mg/dL (2.5-4.5)
[2018-11-17] MEDS ORDERED: MVI, ADULT NO.4 WITH VIT K 10 ML, TRACE (CONC-1ML/DOSE) 1 ML in AMINO ACID 4.25%-D10W+L... IV ONE ×3 (14:00)
[2018-11-17 14:13] LABS: ALT 95 U/L (21-72); AST 49 U/L (17-59); African American GFR (CKD) >90 (>60 ml/min/1.73 sqM); Albumin 2.6 g/dL (3.5-5.0); Alkaline Phosphatase 72 U/L (38-126); Anion Gap 11 mmol/L; Blood Urea Nitrogen 14 mg/dL (9-20); Calcium 8.3 mg/dL (8.4-10.2); Carbon Dioxide 20 mmol/L (22-30); Chloride 108 mmol/L (98-107); Glucose 121 mg/dL (74-99); Potassium 4.4 mmol/L (3.5-5.1); Sodium 139 mmol/L (137-145); Total Bilirubin 0.5 mg/dL (0.2-1.3)
[2018-11-17] MEDS: SODIUM CHLORIDE 0.9% 1,000 ML IV SCH (14:17)
[2018-11-17] MEDS: FAT EMULSION 20% 250 ML in EMPTY BAG 1 BAG IV SCH (16:18)
[2018-11-17 17:44] LABS: Glucose,Whole Blood 152 mg/dL (75-99)
[2018-11-17] MEDS: INSULIN ASPART (NovoLOG) 100 UNIT/ML VIAL SQ SCH ×2 (17:45→22:26)
--- NOTE | 2018-11-17 19:55 | P.PN ---
Progress Note - Text Progress Note Date: 11/17/18 Patient seen and evaluated this evening. He reports moderate pain. Per discussion with nursing, epidural was temporarily off and malfunctioning. No report flatus or bowel movements. Patient did have temperature. Incentive spirometry advised for atelectasis. Overall care plan reviewed i with the patient ncluding will need prolonged full liquid diet for at least 2 weeks for bowel recovery. Additionally, anticipated hospitalization at least for the next 3-4 days reviewed. Ambulation encouraged to resolve ileus. Home healthcare assessment described. Anticipate time off from work at least 4 to 6 weeks
--- NOTE | 2018-11-17 19:59 | P.PN ---
Progress Note - Text Progress Note Date: 11/17/18 To Whom It May Concern: Mr. Saw De Anda is under my general surgical care. He has been hospitalized from October 30 until present. He had multiple abdominal surgeries with anticipated time off from work at minimum 4 to 6 weeks. He is still currently hospitalized. His earliest return to work is December 28 pending complete recovery. Regards, Trinh Lynn MD, FACS
[2018-11-17] MEDS: KETOROLAC 30 MG/ML 1 ML VIAL IVP SCH (20:42)
[2018-11-17 22:12] LABS: Glucose,Whole Blood 135 mg/dL (75-99)
[2018-11-18] MEDS ORDERED: ceFAZolin IN SWFI 2 GM/20 ML SYRINGE IVP SCH
[2018-11-18] MEDS: HEPARIN SODIUM,PORCINE 5,000 UNIT/ML 1 ML VIAL SQ SCH ×4 (00:27→23:33)
[2018-11-18] MEDS: KETOROLAC 30 MG/ML 1 ML VIAL IVP SCH ×5 (00:27→23:33)
[2018-11-18] MEDS: METOCLOPRAMIDE 5 MG/ML 2 ML VIAL IVP SCH ×5 (00:28→23:33)
[2018-11-18] MEDS: HYDROmorphone 0.5 MG/0.5 ML SYRINGE IVP PRN ×2 (03:11→18:48)
[2018-11-18] MEDS: 1: MVI, ADULT NO.4 WITH VIT K 10 ML, TRACE (CONC-1ML/DOSE) 1 ML in AMINO ACID 4.25%-D10W IV SCH ×9 (06:27→21:18)
[2018-11-18 06:59] LABS: Glucose,Whole Blood 145 mg/dL (75-99)
[2018-11-18] MEDS: PANTOPRAZOLE 40 MG/10 ML VIAL IVP SCH (07:19)
[2018-11-18] MEDS: INSULIN ASPART (NovoLOG) 100 UNIT/ML VIAL SQ SCH ×4 (07:20→20:41)
[2018-11-18 07:40] LABS: Basophils % (A) 0 %; Eosinophils # (A) 0.4 k/uL (0-0.7); Eosinophils % (A) 5 %; HGB 12.2 gm/dL (13.0-17.5); Lymphocytes # (A) 0.7 k/uL (1.0-4.8); Lymphocytes % (A) 8 %; MCH 31.2 pg (25.0-35.0); MCHC 32.9 g/dL (31.0-37.0); MCV 94.7 fL (80.0-100.0); Mean Platelet Volume 7.8; Monocytes # (A) 0.7 k/uL (0-1.0); Monocytes % (A) 9 %; Neutrophils # (A) 6.4 k/uL (1.3-7.7); Neutrophils % (A) 76 %; Platelet Count 288 k/uL (150-450); RBC 3.91 m/uL (4.30-5.90); RDW 14.8 % (11.5-15.5); WBC 8.4 k/uL (3.8-10.6)
[2018-11-18 07:47] LABS: Ionized Calcium 5.1 mg/dL (4.5-5.3)
[2018-11-18 07:53] LABS: African American GFR (CKD) >90 (>60 ml/min/1.73 sqM); Anion Gap 5 mmol/L; Blood Urea Nitrogen 16 mg/dL (9-20); Carbon Dioxide 27 mmol/L (22-30); Chloride 107 mmol/L (98-107); Glucose 152 mg/dL (74-99); Magnesium 2.2 mg/dL (1.6-2.3); Phosphorus 1.8 mg/dL (2.5-4.5); Potassium 4.2 mmol/L (3.5-5.1); Sodium 139 mmol/L (137-145)
--- NOTE | 2018-11-18 10:04 | P.PN ---
Progress Note - Text Progress Note Date: 11/18/18 Patient is postop day 2 from an exploratory laparotomy with Dr. Felton. He has a L1-L2 lumbar epidural which is in place. Site appears clear, there is some dried blood along the catheter site and no evidence of any hematoma. I have added more taped to the epidural tubing secure it further. Epidural running at 10 miles an hour. The patient sitting up at the bedside and denies any significant pain in his abdomen. He reports he just feels sick of being in the hospital. He denies any lower extremity weakness, numbness, or any paresthesias. He still has a Shelley catheter in place per the surgical team. Patient has received as needed medications overnight but reports that his VAS today is about 3 out of 10. The plan is to continue the catheter for 1 more day.
[2018-11-18] MEDS ORDERED: Phosphorus Replacement Protoco 1 EACH MISC MISCELLANE PRN (10:54)
[2018-11-18 11:14] LABS: Glucose,Whole Blood 131 mg/dL (75-99)
[2018-11-18] MEDS: SODIUM CHLORIDE 0.9% 1,000 ML IV SCH (11:41)
[2018-11-18] MEDS: SODIUM PHOSPHATE 10 MMOL in SODIUM CHLORIDE 0.9% 250 ML IVPB SCH ×2 (11:52→14:55)
[2018-11-18] MEDS ORDERED: SODIUM CHLORIDE 0.9% 1,000 ML IV ONE (12:30)
--- NOTE | 2018-11-18 13:18 | P.PN ---
<Donna Barone Chrystal - Last Filed: 11/18/18 13:13> Subjective Progress Note Date: 11/18/18 CHIEF COMPLAINT: abdominal pain HISTORY OF PRESENT ILLNESS: patient seen and examined at the bedside this morning. Patient is status post extensive open lysis of adhesions. POD #2. Patient reports abdominal pain is tolerable this morning. Epidural is infusing at 9 mL an hour. Patient did receive IV dilaudid overnight. He denies passing flatus. Denies BM. NG with bilious drainage. Duran catheter with dark jean-claude urine. patient afebrile this morning with a temperature 100.8F. Patient has not used incentive spirometry yet this morning upon examination. He reports using it twice yesterday. Once again today, reiterated the importance of using his incentive spirometer postoperatively. Patient also states he was not out of bed at all yesterday because he was tired. Explained that patient needs to be OOB today in the chair and ambulatory. Patient initially upset and states "I just w ant to sleep" but then agreeable to get OOB today to the chair. PHYSICAL EXAM: VITAL SIGNS: Reviewed GENERAL: Well-developed in no acute distress. HEENT: No sclera icterus. Extraocular movements grossly intact. Moist buccal mucosa. Head is atraumatic, normocephalic. Hears conversational speech. No nasal drainage. NECK: Supple without lymphadenopathy. CHEST: Non-labored respirations and equal bilateral excursions. CARDIOVASCULAR: Regular rate with regular rhythm. Palpable 2+ radial pulses. ABDOMEN: Obese. Soft. Mild distention. Appropriate surgical tenderness. PREVENA to midline incision. MUSCULOSKELETAL: No clubbing, cyanosis or edema. NEUROLOGIC: No focal or lateralizing signs. Cranial nerves II through XII grossly intact. PSYCH: Appropriate affect. Alert and oriented to person, place and time. SKIN: Well perfused. Good skin turgor. ASSESSMENT: 1. Small bowel obstruction 2. Recent laparoscopic lysis of adhesions, November 06, 2018 3. History of multiple bowel obstructions 4. History of exploratory laparotomy with lysis of adhesions, 2014 PLAN: 1. NPO. Await bowel function 2. Continue NG to LIS 3. Continue IV fluids. 500cc bolus ordered this morning. Additional 1L bolus for continued dark jean-claude urine. 4. Continue PPN 5. Incentive spirometry 6. Activity as tolerated 7. Pain control. Continue epidural. DC POD #3 (tomorrow) 8. Continue duran catheter. Remove after epidural is DC on POD #3. Accurate I&O Nurse practitioner note has been reviewed by physician. Signing provider agrees with the documented findings, assessment, and plan of care. Objective - Vital Signs Vital signs: Vital Signs Temp 100.8 F H / 06:16 Pulse 96 11/18/18 06:16 Resp 18 11/18/18 06:16 BP 118/74 11/18/18 06:16 Pulse Ox 95 11/18/18 06:16 Intake & Output / 11/18/11/18/18 18:59 06:59 18:59 Intake Total 114.90 620.833 Output Total 1175 Balance 114.90 -554.167 Weight 111.13 kg Intake: Intake, IV Titration 114.90 620.833 Amount Mvi, Adult No.4 with Vit 620.833 K 10 ml Trace (Conc-1Ml/ Dose) 1 ml In Amino Acid 4.25%-D10w+Lytes*E* 1,000 ml @ 50 mls/hr IV . [id number] ONE Rx#:[id number] Ropivacaine 300 mg 114.90 Hydromorphone (Pf) 5 mg In Sodium Chloride 0.9% 190 ml @ Per Protocol EPIDURAL .Q0M PRN Rx#: [id number] Output: Drainage 175 Right NARES 175 Urine 1000 Other: Voiding Method Indwelling Catheter Indwelling Catheter Indwelling Catheter - Labs CBC & Chem 7: 11/18/18 06:43 11/18/18 06:43 Labs: Abnormal Lab Results - Last 24 Hours (Table) 11/17/18 11/17/18 11/17/18 Range/Units 12:20 12:20 17:42 RBC (4.30-5.90) m/uL Hgb (13.0-17.5) gm/dL Hct (39.0-53.0) % Lymphocytes # (1.0-4.8) k/uL Chloride 108 H (98-107) mmol/L Carbon Dioxide 20 L (22-30) mmol/L Creatinine (0.66-1.25) mg/dL Glucose 121 H (74-99) mg/dL POC Glucose (mg/dL) 152 H (75-99) mg/dL Calcium 8.3 L (8.4-10.2) mg/dL Phosphorus (2.5-4.5) mg/dL ALT 95 H (21-72) U/L Total Protein 5.0 L (6.3-8.2) g/dL Albumin 2.7 L 2.6 L (3.5-5.0) g/dL 11/17/18 11/18/18 11/18/18 Range/Units 22:10 06:43 06:43 RBC 3.91 L (4.30-5.90) m/uL Hgb 12.2 L (13.0-17.5) gm/dL Hct 37.0 L (39.0-53.0) % Lymphocytes # 0.7 L (1.0-4.8) k/uL Chloride (98-107) mmol/L Carbon Dioxide (22-30) mmol/L Creatinine 0.64 L (0.66-1.25) mg/dL Glucose 152 H (74-99) mg/dL POC Glucose (mg/dL) 135 H (75-99) mg/dL Calcium 8.0 L (8.4-10.2) mg/dL Phosphorus 1.8 L (2.5-4.5) mg/dL ALT (21-72) U/L Total Protein (6.3-8.2) g/dL Albumin (3.5-5.0) g/dL 11/18/18 11/18/18 Range/Units 06:57 11:12 RBC (4.30-5.90) m/uL Hgb (13.0-17.5) gm/dL Hct (39.0-53.0) % Lymphocytes # (1.0-4.8) k/uL Chloride (98-107) mmol/L Carbon Dioxide (22-30) mmol/L Creatinine (0.66-1.25) mg/dL Glucose (74-99) mg/dL POC Glucose (mg/dL) 145 H 131 H (75-99) mg/dL Calcium (8.4-10.2) mg/dL Phosphorus (2.5-4.5) mg/dL ALT (21-72) U/L Total Protein (6.3-8.2) g/dL Albumin (3.5-5.0) g/dL Microbiology - Last 24 Hours (Table) 11/11/18 17:24 Blood Culture - Final Blood No Growth after 144 hours Assessment and Plan (1) Abdominal pain Current Visit: Yes Status: Acute Code(s): R10.9 - UNSPECIFIED ABDOMINAL PAIN SNOMED Code(s): 41444134 (2) Small bowel obstruction Current Visit: Yes Status: Acute Code(s): K56.69 - OTHER INTESTINAL OBSTRUCTION * DO NOT USE * SNOMED Code(s): 660493983 <Trinh Lynn N - Last Filed: 11/18/18 19:27> Subjective Patient seen and reevaluated. Additional arrangements for physical therapy including occupational therapy described. Rehabilitation services also reviewed with home health care needs. We'll discontinue epidural tomorrow with removal of Duran catheter. Complete postoperative care plan described including liquid diet upon discharge and immediate follow-up with primary care provider next week. All questions were addressed with the patient and his who was concerned about his return to work anticipated for late December with documentation provided. At this time, await bowel function. Objective - Vital Signs Vital signs: Vital Signs Temp 98.3 F 11/18/18 14:18 Pulse 78 11/18/18 14:18 Resp 14 11/18/18 14:18 BP 135/84 11/18/18 14:18 Pulse Ox 96 11/18/18 14:18 Intake & Output 11/18/18 11/18/18 11/19/18 06:59 18:59 06:59 Intake Total 620.833 Output Total 1175 Balance -554.167 Intake: Intake, IV Titration 620.833 Amount Mvi, Adult No.4 with Vit 620.833 K 10 ml Trace (Conc-1Ml/ Dose) 1 ml In Amino Acid 4.25%-D10w+Lytes*E* 1,000 ml @ 50 mls/hr IV . [id number] ONE Rx#:[id number] Output: Drainage 175 Right NARES 175 Urine 1000 Other: Voiding Method Indwelling Catheter Indwelling Catheter - Labs CBC & Chem 7: 11/18/18 06:43 11/18/18 06:43 Labs: Abnormal Lab Results - Last 24 Hours (Table) 11/17/18 11/18/18 11/18/18 Range/Units 22:10 06:43 06:43 RBC 3.91 L (4.30-5.90) m/uL Hgb 12.2 L (13.0-17.5) gm/dL Hct 37.0 L (39.0-53.0) % Lymphocytes # 0.7 L (1.0-4.8) k/uL Creatinine 0.64 L (0.66-1.25) mg/dL Glucose 152 H (74-99) mg/dL POC Glucose (mg/dL) 135 H (75-99) mg/dL Calcium 8.0 L (8.4-10.2) mg/dL Phosphorus 1.8 L (2.5-4.5) mg/dL 11/18/18 11/18/18 11/18/18 Range/Units 06:57 11:12 17:01 RBC (4.30-5.90) m/uL Hgb (13.0-17.5) gm/dL Hct (39.0-53.0) % Lymphocytes # (1.0-4.8) k/uL Creatinine (0.66-1.25) mg/dL Glucose (74-99) mg/dL POC Glucose (mg/dL) 145 H 131 H 133 H (75-99) mg/dL Calcium (8.4-10.2) mg/dL Phosphorus (2.5-4.5) mg/dL Microbiology - Last 24 Hours (Table) 11/11/18 17:24 Blood Culture - Final Blood No Growth after 144 hours Assessment and Plan (1) High risk for readmission Current Visit: Yes Status: Acute Code(s): Z91.89 - OTH PERSONAL RISK FACTORS, NOT ELSEWHERE CLASSIFIED SNOMED Code(s): 982248166 (2) Chronic abdominal pain Current Visit: Yes Status: Acute Code(s): R10.9 - UNSPECIFIED ABDOMINAL PAIN; G89.29 - OTHER CHRONIC PAIN SNOMED Code(s): 905566501 (3) Ileus, postoperative Current Visit: Yes Status: Acute Code(s): K91.89 - OTH POSTPROCEDURAL COMPLICATIONS AND DISORDERS OF DGSTV SYS; K56.7 - ILEUS, UNSPECIFIED SNOMED Code(s): 874635112 (4) Leukocytosis Current Visit: Yes Status: Acute Code(s): D72.829 - ELEVATED WHITE BLOOD CELL COUNT, UNSPECIFIED SNOMED Code(s): 557042795 (5) Dehydration Current Visit: Yes Status: Acute Code(s): E86.0 - DEHYDRATION SNOMED Code(s): 45879922 (6) Peritoneal adhesions Current Visit: Yes Status: Acute Code(s): K66.0 - PERITONEAL ADHESIONS (POSTPROCEDURAL) (POSTINFECTION) SNOMED Code(s): 66728455 (7) Intestinal or peritoneal adhesions with obstruction Current Visit: Yes Status: Acute Code(s): K56.50 - INTESTNL ADHESIONS, UNSP TO PARTIAL VERSUS COMPLETE OBST SNOMED Code(s): 74885844
[2018-11-18] MEDS: FAT EMULSION 20% 250 ML in EMPTY BAG 1 BAG IV SCH (15:36)
[2018-11-18 17:03] LABS: Glucose,Whole Blood 133 mg/dL (75-99)
[2018-11-18 20:33] LABS: Glucose,Whole Blood 121 mg/dL (75-99)
[2018-11-19 05:31] LABS: Glucose,Whole Blood 132 mg/dL (75-99)
[2018-11-19] MEDS: KETOROLAC 30 MG/ML 1 ML VIAL IVP SCH ×4 (05:58→23:48)
[2018-11-19] MEDS: METOCLOPRAMIDE 5 MG/ML 2 ML VIAL IVP SCH ×4 (05:58→19:23)
[2018-11-19 07:17] LABS: Basophils % (A) 0 %; Eosinophils # (A) 0.6 k/uL (0-0.7); Eosinophils % (A) 9 %; HCT 35.6 % (39.0-53.0); HGB 11.7 gm/dL (13.0-17.5); Lymphocytes # (A) 0.6 k/uL (1.0-4.8); Lymphocytes % (A) 10 %; MCHC 32.8 g/dL (31.0-37.0); MCV 94.4 fL (80.0-100.0); Mean Platelet Volume 7.5; Monocytes # (A) 0.5 k/uL (0-1.0); Monocytes % (A) 8 %; Neutrophils # (A) 4.6 k/uL (1.3-7.7); Neutrophils % (A) 71 %; Platelet Count 265 k/uL (150-450); RBC 3.78 m/uL (4.30-5.90); RDW 14.1 % (11.5-15.5); WBC 6.5 k/uL (3.8-10.6)
[2018-11-19 07:20] LABS: Ionized Calcium 5.1 mg/dL (4.5-5.3)
[2018-11-19 07:26] LABS: African American GFR (CKD) >90 (>60 ml/min/1.73 sqM); Anion Gap 4 mmol/L; Blood Urea Nitrogen 17 mg/dL (9-20); Carbon Dioxide 28 mmol/L (22-30); Chloride 108 mmol/L (98-107); Glucose 139 mg/dL (74-99); Magnesium 2.2 mg/dL (1.6-2.3); Phosphorus 2.1 mg/dL (2.5-4.5); Potassium 3.7 mmol/L (3.5-5.1); Sodium 140 mmol/L (137-145)
[2018-11-19] MEDS: ROPIVACAINE 300 MG, HYDROMORPHONE (PF) 5 MG in SODIUM CHLORIDE 0.9% 190 ML EPIDURAL PRN (07:31)
[2018-11-19] MEDS: HEPARIN SODIUM,PORCINE 5,000 UNIT/ML 1 ML VIAL SQ SCH ×3 (07:34→23:48)
[2018-11-19] MEDS: INSULIN ASPART (NovoLOG) 100 UNIT/ML VIAL SQ SCH ×4 (07:35→20:32)
[2018-11-19] MEDS: PANTOPRAZOLE 40 MG/10 ML VIAL IVP SCH (07:35)
[2018-11-19] MEDS: SODIUM CHLORIDE 0.9% 1,000 ML IV SCH (07:36)
[2018-11-19 08:02] LABS: Glucose,Whole Blood 134 mg/dL (75-99)
[2018-11-19] MEDS: 1: MVI, ADULT NO.4 WITH VIT K 10 ML, TRACE (CONC-1ML/DOSE) 1 ML in AMINO ACID 4.25%-D10W IV SCH ×6 (09:45→19:22)
--- NOTE | 2018-11-19 10:56 | P.PN ---
Progress Note - Text Progress Note Date: 11/19/18 Postoperative day # status post explaratory laparotomy/epidural catheter placed for postoperative analgesia, patient doing well epidural site okay, patient currently on combination of epidural infusion solution of Ropivacaine 0.0625% and Dilaudid 20 g per mL the infusion rate at 10 ml per hour , patient had no motor deficit epidural site okay , vital signs stable ,VAS 3 /10 , Assessment and plan= post operative day #3 patient doing well ,pain well controlled , there is no anesthesia related complications, continue current management, will discontinue epidural tomorrow
[2018-11-19 11:12] LABS: Glucose,Whole Blood 141 mg/dL (75-99)
--- NOTE | 2018-11-19 11:15 | P.PN ---
Subjective Progress Note Date: 11/19/18 CHIEF COMPLAINT: abdominal pain HISTORY OF PRESENT ILLNESS: patient seen and examined at the bedside this morning. Patient is status post extensive open lysis of adhesions. POD #3. patient states his pain is tolerable as long as he is resting in bed but it increases with any exertion. Epidural is infusing at 10 mL an hour. Patient denies passing flatus or having bowel movement. NG tube remains to low intermittent suction with bilious drainage. Duran catheter with yellow urine. Patient states he taken out of bed yesterday and so in the chair. Encouraged use of incentive spirometer today. temperature 99.5. WBC 6.5. Hemoglobin 11.7 PHYSICAL EXAM: VITAL SIGNS: Reviewed GENERAL: Well-developed in no acute distress. HEENT: No sclera icterus. Extraocular movements grossly intact. Moist buccal mucosa. Head is atraumatic, normocephalic. Hears conversational speech. No nasal drainage. NECK: Supple without lymphadenopathy. CHEST: Non-labored respirations and equal bilateral excursions. CARDIOVASCULAR: Regular rate with regular rhythm. Palpable 2+ radial pulses. ABDOMEN: Obese. Soft. Mild distention. Appropriate surgical tenderness. PREVENA to midline incision. MUSCULOSKELETAL: No clubbing, cyanosis or edema. NEUROLOGIC: No focal or lateralizing signs. Cranial nerves II through XII grossly intact. PSYCH: Appropriate affect. Alert and oriented to person, place and time. SKIN: Well perfused. Good skin turgor. ASSESSMENT: 1. Small bowel obstruction 2. Recent laparoscopic lysis of adhesions, November 06, 2018 3. History of multiple bowel obstructions 4. History of exploratory laparotomy with lysis of adhesions, 2014 PLAN: 1. NPO. Await bowel function 2. Continue NG to LIS 3. Continue IV fluids 4. Continue PPN 5. Incentive spirometry 6. Activity as tolerated 7. Pain control. Discontinue epidural 4 hours after last dose of heparin. Continue Dilaudid IVP PRN 8. Discontinue duran catheter. Obtain PVR. 9. Add potassium to maintenance IV fluids Nurse practitioner note has been reviewed by physician. Signing provider agrees with the documented findings, assessment, and plan of care. Objective - Vital Signs Vital signs: Vital Signs Temp 99.5 F 11/19/18 07:00 Pulse 87 11/19/18 07:00 Resp 15 11/19/18 07:00 BP 111/69 11/19/18 07:00 Pulse Ox 90 L 11/19/18 07:00 Intake & Output 11/18/18 11/19/18 11/19/18 18:59 06:59 18:59 Intake Total 237.85 2425 Output Total 1780 Balance 237.85 645 Intake: Intake, IV Titration 237.85 2425 Amount Amino Acid 4.25%-D10w+ 1000 Lytes*E* 1,000 ml @ 100 mls/hr IV .BY DURATION [facility] Rx#:[id number] Mvi, Adult No.4 with Vit 800 K 10 ml Trace (Conc-1Ml/ Dose) 1 ml In Amino Acid 4.25%-D10w+Lytes*E* 1,000 ml @ 100 mls/hr IV .BY DURATION [facility] Rx#: [id number] Ropivacaine 300 mg 237.85 Hydromorphone (Pf) 5 mg In Sodium Chloride 0.9% 190 ml @ Per Protocol EPIDURAL .Q0M PRN Rx#: [id number] Sodium Chloride 0.9% 1, 625 000 ml @ 75 mls/hr IV . [id number] [facility] Rx#:[id number] Output: Gastric Drainage 300 Urine 1480 Other: Voiding Method Indwelling Catheter Indwelling Catheter Indwelling Catheter # Voids 1 - Labs CBC & Chem 7: 11/19/18 06:50 11/19/18 06:50 Labs: Abnormal Lab Results - Last 24 Hours (Table) 11/18/18 11/18/18 11/18/18 Range/Units 11:12 17:01 20:21 RBC (4.30-5.90) m/uL Hgb (13.0-17.5) gm/dL Hct (39.0-53.0) % Lymphocytes # (1.0-4.8) k/uL Chloride (98-107) mmol/L Creatinine (0.66-1.25) mg/dL Glucose (74-99) mg/dL POC Glucose (mg/dL) 131 H 133 H 121 H (75-99) mg/dL Calcium (8.4-10.2) mg/dL Phosphorus (2.5-4.5) mg/dL 11/19/18 11/19/18 11/19/18 Range/Units 05:29 06:50 06:50 RBC 3.78 L (4.30-5.90) m/uL Hgb 11.7 L (13.0-17.5) gm/dL Hct 35.6 L (39.0-53.0) % Lymphocytes # 0.6 L (1.0-4.8) k/uL Chloride 108 H (98-107) mmol/L Creatinine 0.56 L (0.66-1.25) mg/dL Glucose 139 H (74-99) mg/dL POC Glucose (mg/dL) 132 H (75-99) mg/dL Calcium 8.0 L (8.4-10.2) mg/dL Phosphorus 2.1 L (2.5-4.5) mg/dL 11/19/18 Range/Units 07:50 RBC (4.30-5.90) m/uL Hgb (13.0-17.5) gm/dL Hct (39.0-53.0) % Lymphocytes # (1.0-4.8) k/uL Chloride (98-107) mmol/L Creatinine (0.66-1.25) mg/dL Glucose (74-99) mg/dL POC Glucose (mg/dL) 134 H (75-99) mg/dL Calcium (8.4-10.2) mg/dL Phosphorus (2.5-4.5) mg/dL Assessment and Plan (1) Abdominal pain Current Visit: Yes Status: Acute Code(s): R10.9 - UNSPECIFIED ABDOMINAL PAIN SNOMED Code(s): 44539343 (2) Small bowel obstruction Current Visit: Yes Status: Acute Code(s): K56.69 - OTHER INTESTINAL OBSTRUCTION * DO NOT USE * SNOMED Code(s): 520349322
[2018-11-19] MEDS ORDERED: POTASSIUM PHOSPHATE 10 MMOL in SODIUM CHLORIDE 0.9% 250 ML IV ONE (12:00)
[2018-11-19] MEDS: 0.9% NACL WITH KCL 20 MEQ/L 1,000 ML IV SCH (13:07)
[2018-11-19] MEDS ORDERED: TAMSULOSIN 0.4 MG CAP.ER.24H PO STA (13:12)
[2018-11-19] MEDS: HYDROmorphone 0.5 MG/0.5 ML SYRINGE IVP PRN ×3 (13:55→20:29)
[2018-11-19] MEDS: FAT EMULSION 20% 250 ML in EMPTY BAG 1 BAG IV SCH (15:41)
[2018-11-19 17:08] LABS: Glucose,Whole Blood 120 mg/dL (75-99)
[2018-11-20 00:49] LABS: Glucose,Whole Blood 113 mg/dL (75-99)
[2018-11-20] MEDS: 0.9% NACL WITH KCL 20 MEQ/L 1,000 ML IV SCH ×2 (00:50→17:33)
[2018-11-20] MEDS: 1: MVI, ADULT NO.4 WITH VIT K 10 ML, TRACE (CONC-1ML/DOSE) 1 ML in AMINO ACID 4.25%-D10W IV SCH ×3 (04:19)
[2018-11-20] MEDS: KETOROLAC 30 MG/ML 1 ML VIAL IVP SCH ×3 (05:32→17:36)
[2018-11-20] MEDS: HYDROmorphone 0.5 MG/0.5 ML SYRINGE IVP PRN (06:10)
[2018-11-20] MEDS ORDERED: TAMSULOSIN 0.4 MG CAP.ER.24H PO SCH (08:30)
[2018-11-20] MEDS: INSULIN ASPART (NovoLOG) 100 UNIT/ML VIAL SQ SCH ×3 (08:36→17:36)
[2018-11-20] MEDS: HYDROcodone/APAP 5-325MG 1 EACH TAB PO PRN ×2 (09:59→16:06)
[2018-11-20] MEDS: HEPARIN SODIUM,PORCINE 5,000 UNIT/ML 1 ML VIAL SQ SCH ×2 (10:00→16:06)
[2018-11-20] MEDS: PANTOPRAZOLE 40 MG/10 ML VIAL IVP SCH (10:00)
[2018-11-20 12:10] LABS: Glucose,Whole Blood 119 mg/dL (75-99)
--- NOTE | 2018-11-20 12:34 | XR ---
EXAMINATION TYPE: XR chest 2V DATE OF EXAM: 11/20/2018 COMPARISON: 08/25/2017, 03/29/2015 TECHNIQUE: PA and lateral views submitted. HISTORY: Shortness of breath FINDINGS: The lungs are clear and there is no pneumothorax, pleural effusion, or focal pneumonia. Hypertrophi c degenerative change the spine. Prominence of the anterior margin the left first rib stable dating b ack to 2014 IMPRESSION: 1. No acute process.
[2018-11-20 12:39] LABS: African American GFR (CKD) >90 (>60 ml/min/1.73 sqM); Anion Gap 8 mmol/L; Blood Urea Nitrogen 15 mg/dL (9-20); Calcium 8.2 mg/dL (8.4-10.2); Carbon Dioxide 23 mmol/L (22-30); Chloride 107 mmol/L (98-107); Glucose 116 mg/dL (74-99); Sodium 138 mmol/L (137-145)
[2018-11-20 12:41] LABS: Magnesium 2.1 mg/dL (1.6-2.3); Phosphorus 3.1 mg/dL (2.5-4.5); Potassium 4.5 mmol/L (3.5-5.1)
[2018-11-20 14:15] VITALS: BP 148/91; PULSE 82; RESP 18; TEMP 97.9
--- NOTE | 2018-11-20 14:23 | P.DS ---
<Donna Barone - Last Filed: 11/20/18 14:17> Providers Expected date of discharge: 11/20/18 - Discharge Diagnosis(es) (1) Abdominal pain Current Visit: Yes Status: Acute (2) Small bowel obstruction Current Visit: Yes Status: Acute Hospital Course: 63-year-old male with a history of bowel obstructions who underwent upper scope occlusive adhesions on 11/06/2017. Patient was seen outpatient by his surgeon and reported abdominal pain after eating a sandwich. He was admitted to the hospital for further evaluation. Patient underwent extensive open lysis of adhesions on 11/16/2018. The patients bowel function was slow to return. He required NG tube placement and PPN for nutrition. NG has since been discontinued. He is tolerating clear liquid diet and passing flatus. He remains weak and requires KARO at the time of discharge. He is stable for discharge today per Dr. Lynn. Please see EMR for further hospital course details. Patient to remain on liquid diet for two weeks. Discharge Diagnosis: 1. Small bowel obstruction 2. Recent laparoscopic lysis of adhesions, November 06, 2018 3. History of multiple bowel obstructions 4. History of exploratory laparotomy with lysis of adhesions, 2014 Nurse practitioner note has been reviewed by physician. Signing provider agrees with the documented findings, assessment, and plan of care. Patient Condition at Discharge: Stable Plan - Discharge Summary Discharge Rx Participant: Yes New Discharge Prescriptions: New Hydrocodone/Acetaminophen [[place] 5-325] 1 tab PO Q4HR PRN 3 Days #18 tab PRN Reason: Pain Continue Multivitamins, Thera [Multivitamin (formulary)] 2 tab PO HS Sennosides/Docusate Sodium [[place] Colace] 1 tab PO BID Aspirin 325 mg PO DAILY Tamsulosin [Flomax] 0.4 mg PO DAILY #7 cap Ibuprofen [Motrin] 600 mg PO Q8HR PRN #30 tab PRN Reason: Pain Polyethylene Glycol 3350 [Miralax] 17 gm PO DAILY #30 packet Discontinued Calcium Carbonate/Vitamin D3 [Calcium 600-Vit D3 400 Tablet] 2 tab PO BID Ascorbic Acid [Vitamin C] 1,000 mg PO QID Folic Acid 0.8 mg PO HS Fish Oil/Dha/Epa [Fish Oil 1,200 mg Fish Oil] 1 cap PO BID Selenium 200 mcg PO HS Discharge Medication List Multivitamins, Thera [Multivitamin (formulary)] 2 tab PO HS 04/04/15 [History] Aspirin 325 mg PO DAILY 03/30/18 [History] Sennosides/Docusate Sodium [[place] Colace] 1 tab PO BID 03/30/18 [History] Ibuprofen [Motrin] 600 mg PO Q8HR PRN #30 tab 11/08/18 [Rx] Polyethylene Glycol 3350 [Miralax] 17 gm PO DAILY #30 packet 11/08/18 [Rx] Tamsulosin [Flomax] 0.4 mg PO DAILY #7 cap 11/08/18 [Rx] Hydrocodone/Acetaminophen [[place] 5-325] 1 tab PO Q4HR PRN 3 Days #18 tab 11/20/18 [Rx] Follow up Appointment(s)/Referral(s): Lurdes Swanson MD [Primary Care Provider] - 11/23/18 ([facility]) Trinh Lynn MD [STAFF PHYSICIAN] - 12/01/18 4:30 pm [facility], [NON-STAFF] - As Needed [facility], [NON-STAFF] - As Needed Patient Instructions/Handouts: Bowel Obstruction (DC) Activity/Diet/Wound Care/Special Instructions: Liquid diet only for next 2 weeks (starting today 11/20/18)to allow complete recovery of small bowel obstruction. Remove PREVENA on November 23, 2018 Recommend protein shakes at least 65 g in divided doses daily for complete re covery. May shower. No bathtub soaks. Morelia to be removed December 01 in the office. No lifting over 4 pounds, half a gallon of milk for 4 weeks until 12/17/2018 Discharge Disposition: HOME WITH HOME HEALTH SERVICES <Trinh Lynn - Last Filed: 11/20/18 15:52> Providers Date of admission: 11/11/18 19:28 Attending physician: Trinh Lynn Primary care physician: Lurdes Swanson - Discharge Diagnosis(es) (1) High risk for readmission Current Visit: Yes Status: Acute (2) Chronic abdominal pain Current Visit: Yes Status: Acute (3) Ileus, postoperative Current Visit: Yes Status: Acute (4) Leukocytosis Current Visit: Yes Status: Acute (5) Dehydration Current Visit: Yes Status: Acute (6) Peritoneal adhesions Current Visit: Yes Status: Acute (7) Intestinal or peritoneal adhesions with obstruction Current Visit: Yes Status: Acute Hospital Course: 63-year-old male with a history of bowel obstructions who underwent laparoscopic lysis of adhesions on 11/06/2017. Above care plan carefully described with the patient and at bedside who are agreeable with discharge as he has prolonged weakness. Continue liquid diet to allow for full bowel recovery. Follow-up in 2 weeks in the office described.
[2018-11-20 15:15] VITALS: BMI 34.2
[2018-11-20 16:18] LABS: Glucose,Whole Blood 85 mg/dL (75-99)
== END 2018-11-20 18:53 | DRG 336 ==
LOC: EC 14:36 → 4SSUR 19:28
PROVIDERS: ADMIT Surgery Plastic and Reconstructive Surgery; ATTEND Surgery Plastic and Reconstructive Surgery
PROC: 0DNN0ZZ Release Sigmoid Colon, Open Approach (ICD-10-PCS; 2018-11-16)
PROC: 0DNA0ZZ Release Jejunum, Open Approach (ICD-10-PCS; 2018-11-16)
PROC: 0D9670Z Drainage of Stomach with Drainage Device, Via Natural or Artificial Opening (ICD-10-PCS; 2018-11-16)
PROC: 0DNB0ZZ Release Ileum, Open Approach (ICD-10-PCS; principal; 2018-11-16 16:00)
DX: K56.50 Intestinal adhesions [bands], unspecified as to partial versus complete obstruction (principal); R18.8 Other ascites; N13.8 Other obstructive and reflux uropathy; J98.11 Atelectasis; K91.89 Other postprocedural complications and disorders of digestive system; K56.7 Ileus, unspecified; N40.1 Benign prostatic hyperplasia with lower urinary tract symptoms; E86.0 Dehydration; G89.29 Other chronic pain; K57.30 Diverticulosis of large intestine without perforation or abscess without bleeding; K21.9 Gastro-esophageal reflux disease without esophagitis; E78.5 Hyperlipidemia, unspecified; D72.829 Elevated white blood cell count, unspecified; M72.2 Plantar fascial fibromatosis; M54.5 Low back pain; K44.9 Diaphragmatic hernia without obstruction or gangrene; Z79.82 Long term (current) use of aspirin; Z79.1 Long term (current) use of non-steroidal anti-inflammatories (NSAID); Z79.899 Other long term (current) drug therapy; Z87.01 Personal history of pneumonia (recurrent); Z86.718 Personal history of other venous thrombosis and embolism; Z87.19 Personal history of other diseases of the digestive system; Z85.828 Personal history of other malignant neoplasm of skin; Z90.49 Acquired absence of other specified parts of digestive tract; Z86.19 Personal history of other infectious and parasitic diseases; Z98.890 Other specified postprocedural states; Z86.010 Personal history of colon polyps; Z88.5 Allergy status to narcotic agent; Z88.0 Allergy status to penicillin; Z83.3 Family history of diabetes mellitus; Z82.5 Family history of asthma and other chronic lower respiratory diseases; Z80.0 Family history of malignant neoplasm of digestive organs; Z80.7 Family history of other malignant neoplasms of lymphoid, hematopoietic and related tissues
CPT/HCPCS: 36415; 71046; 74018; 74019; 74021; 80048; 80053; 81003; 82040; 82330; 83605; 83735; 84100; 84478; 85025; 87040; 87045; 87046; 87324; 96361; 96374; 96375; 99285

== ENCOUNTER → 2018-12-08 | Outpatient (CLI) | payer OTHER ==
[2018-12-08 15:25] LABS: HCT 42.6 % (39.0-53.0); HGB 14.1 gm/dL (13.0-17.5); MCH 31.1 pg (25.0-35.0); MCHC 33.1 g/dL (31.0-37.0); MCV 94.1 fL (80.0-100.0); Mean Platelet Volume 7.5; Platelet Count 337 k/uL (150-450); RBC 4.53 m/uL (4.30-5.90); RDW 14.2 % (11.5-15.5); WBC 8.9 k/uL (3.8-10.6)
[2018-12-08 15:43] LABS: INR 0.9 (<1.2); Prothrombin Time 9.7 sec (9.0-12.0)
[2018-12-08 19:24] LABS: Iron Saturation 13.19 (15.00-50.00)
[2018-12-08 19:35] LABS: ALT 31 U/L (10-49); AST 24 U/L (14-35); African American GFR (CKD) 114.8 (60.0-200.0); Albumin/Globulin Ratio 2.05 (1.60-3.17); Alkaline Phosphatase 112 U/L (41-126); BUN/Creat Ratio 22.86 Ratio (12.00-20.00); Calcium 9.2 mg/dL (8.7-10.3); Carbon Dioxide 24.7 mmol/L (21.6-31.8); Chloride 103 mmol/L (96-109); Cholesterol 145 mg/dL (0-200); Folate, Serum 17.2 ng/mL; Globulin 2.1 g/dL (1.6-3.3); Glucose 130 mg/dL (70-110); Magnesium 1.9 mg/dL (1.5-2.4); Phosphorus 3.9 mg/dL (2.4-5.1); Sodium 139 mmol/L (135-145); Total Bilirubin 0.2 mg/dL (0.3-1.2); Total Protein 6.4 g/dL (6.2-8.2); Vitamin D 25 Hydroxy 26.3 ng/mL (30.0-100.0)
[2018-12-08 21:45] LABS: Hemoglobin A1C 5.7 % (4.0-6.0)
[2018-12-09 12:08] LABS: Zinc, Serum 89 ug/dL (60-130)
[2018-12-09 13:43] LABS: Vit B1(Thiamine) 113 ug/L (38-122)
== END | disposition home or self-care (01) ==
LOC: LABWHC1 14:48
PROVIDERS: ATTEND Surgery Plastic and Reconstructive Surgery
DX: E21.1 Secondary hyperparathyroidism, not elsewhere classified (principal); E89.1 Postprocedural hypoinsulinemia; D50.8 Other iron deficiency anemias; K90.89 Other intestinal malabsorption; E55.9 Vitamin D deficiency, unspecified; K74.1 Hepatic sclerosis; N19 Unspecified kidney failure; K50.90 Crohn's disease, unspecified, without complications; E66.01 Morbid (severe) obesity due to excess calories
CPT/HCPCS: 36415; 80053; 80061; 82306; 82525; 82607; 82728; 82746; 83036; 83540; 83550; 83721; 83735; 83970; 84100; 84134; 84255; 84425; 84443; 84590; 84630; 85027; 85610; 85730

== ENCOUNTER 2019-01-18 22:54 | Inpatient (IN) | payer OTHER, MEDICARE ==
[2019-01-19 01:06] LABS: Basophils # (A) 0.1 k/uL (0-0.2); Basophils % (A) 1 %; Eosinophils # (A) 0.4 k/uL (0-0.7); Eosinophils % (A) 4 %; HGB 14.7 gm/dL (13.0-17.5); Lymphocytes # (A) 2.2 k/uL (1.0-4.8); Lymphocytes % (A) 22 %; MCH 30.7 pg (25.0-35.0); MCHC 33.3 g/dL (31.0-37.0); Mean Platelet Volume 7.4; Monocytes # (A) 0.8 k/uL (0-1.0); Monocytes % (A) 8 %; Neutrophils # (A) 6.2 k/uL (1.3-7.7); Neutrophils % (A) 63 %; Platelet Count 251 k/uL (150-450); RBC 4.78 m/uL (4.30-5.90); RDW 15.7 % (11.5-15.5)
--- NOTE | 2019-01-19 01:07 | XR ---
EXAM: XR Abdomen, 1 View CLINICAL HISTORY: ITS.REASON XR Reason: abdominal pain TECHNIQUE: Frontal supine view of the abdomen/pelvis. COMPARISON: 11/16/18 IMPRESSION: There are dilated loops of bowel likely representing small bowel obstruction or ileus. No free air.
[2019-01-19 01:11] LABS: Appearance,Urine Clear (Clear); Bilirubin,Urine Negative (Negative); Blood,Urine Negative (Negative); Color,Urine Yellow; Glucose,Urine (UA) Negative (Negative); Ketones,Urine Negative (Negative); Leukocyte Esterase,Urine Negative (Negative); Nitrite,Urine Negative (Negative); PH, Urine 5.5 (5.0-8.0); Protein,Urine Negative (Negative); Specific Gravity,Urine 1.015 (1.001-1.035)
[2019-01-19 01:18] LABS: ALT 31 U/L (21-72); AST 24 U/L (17-59); African American GFR (CKD) >90 (>60 ml/min/1.73 sqM); Albumin 4.3 g/dL (3.5-5.0); Alkaline Phosphatase 86 U/L (38-126); Amylase 38 U/L (30-110); Anion Gap 11 mmol/L; Blood Urea Nitrogen 16 mg/dL (9-20); Calcium 9.6 mg/dL (8.4-10.2); Carbon Dioxide 26 mmol/L (22-30); Chloride 102 mmol/L (98-107); Glucose 106 mg/dL (74-99); Potassium 4.1 mmol/L (3.5-5.1); Sodium 139 mmol/L (137-145); Total Bilirubin 0.3 mg/dL (0.2-1.3); Total Protein 7.1 g/dL (6.3-8.2)
--- NOTE | 2019-01-19 03:54 | ED ---
Abdominal Pain HPI - General Chief Complaint: Abdominal Pain Stated Complaint: Abd Pain Time Seen by Provider: 01/19/19 00:28 Source: patient Mode of arrival: ambulatory Limitations: no limitations - History of Present Illness Initial Comments: Patient is 63-year-old male presenting to emergency Department with a chief complaint of constipation. Patient reports he had appendix repair surgery about [address] Guzman. Patient reports he had developed intermittent bowel structures. Patient reports he has been passing flatus without issues but has not had a bowel movements in the last 4 days. Patient reports he takes a stool softener and another laxative. Patient reports he is also developed abdominal bloating over the same. Patient reports that he is eating without rales. Patient denies any fevers last visit shows. - Related Data Home Medications Medication Instructions Recorded Confirmed Multivitamins, Thera [Multivitamin 2 tab PO HS 04/04/15 11/11/18 (formulary)] Aspirin 325 mg PO DAILY 03/30/18 11/11/18 Sennosides/Docusate Sodium [[place] 1 tab PO BID 03/30/18 11/11/18 Colace] Previous Rx's Medication Instructions Recorded Ibuprofen [Motrin] 600 mg PO Q8HR PRN #30 tab 11/08/18 Polyethylene Glycol 3350 [Miralax] 17 gm PO DAILY #30 packet 11/08/18 Tamsulosin [Flomax] 0.4 mg PO DAILY #7 cap 11/08/18 Hydrocodone/Acetaminophen [[place] 1 tab PO Q4HR PRN 3 Days #18 tab 11/20/18 5-325] Allergies Allergy/AdvReac Type Severity Reaction Status Date / Time morphine Allergy Rash/Hives Verified 01/18/19 22:59 Penicillins Allergy Rash/Hives, Verified 01/18/19 22:59 WHEEZING Review of Systems ROS Statement: Those systems with pertinent positive or pertinent negative responses have been documented in the HPI. ROS Other: All systems not noted in ROS Statement are negative. Past Medical History Past Medical History: Cancer, Deep Vein Thrombosis (DVT), GERD/Reflux, Hyperlipidemia, Pneumonia Additional Past Medical History / Comment(s): SBOs, L lower leg DVT, blood clot behind R eye, basal skin cancer with removals, pneumonia with SIRS, sinus problems, low back pain, L foot plantar fascitis, urine flow issues at times, past hiatal hernia-(sx) History of Any Multi-Drug Resistant Organisms: C-DIFF Date of last positivie culture/infection: 2009 MDRO Source:: stool Past Surgical History: Adenoidectomy, Bowel Resection, Cholecystectomy, Hernia Repair, Tonsillectomy Additional Past Surgical History / Comment(s): Exploratory lap with lysis of adhesions, small bowel decompression, yamileth fundiplication, EGD, colonoscopies/benign polypectomies, T&A twice, skin cancer removals, Past Anesthesia/Blood Transfusion Reactions: No Reported Reaction Past Psychological History: No Psychological Hx Reported Smoking Status: Never smoker Past Alcohol Use History: None Reported Past Drug Use History: None Reported - Past Family History Mother Family Medical History: Cancer, Diabetes Mellitus Additional Family Medical History / Comment(s): Emphysema, heart problems, COLON CANCER. Father Additional Family Medical History / Comment(s): COLON CA LIVER CA,MULTIPLE MYELOMA, bone cancer General Exam Limitations: no limitations General appearance: alert, in no apparent distress Head exam: Present: atraumatic, normocephalic, normal inspection Eye exam: Present: normal appearance, PERRL, EOMI Pupils: Present: normal accommodation ENT exam: Present: normal exam, normal oropharynx, mucous membranes moist, TM's normal bilaterally, normal external ear exam Neck exam: Present: normal inspection, full ROM Respiratory exam: Present: normal lung sounds bilaterally Cardiovascular Exam: Present: regular rate, normal rhythm, normal heart sounds GI/Abdominal exam: Present: distended, tenderness (Diffuse general tenderness), normal bowel sounds. Absent: guarding, rebound Extremities exam: Present: normal inspection, full ROM, normal capillary refill, other (+2 ulnar and radial pulses bilaterally.) Back exam: Present: normal inspection, full ROM. Absent: CVA tenderness (R), CVA tenderness (L) Neurological exam: Present: alert, oriented X3 Psychiatric exam: Present: normal affect, normal mood Skin exam: Present: warm, intact, normal color Course Vital Signs 01/18/19 01/19/19 22:56 01:25 Temperature 97.9 F 97 F L Pulse Rate 79 68 Respiratory 20 18 Rate Blood Pressure 125/80 122/80 O2 Sat by Pulse 96 96 Oximetry Medical Decision Making - Medical Decision Making Patient is a 63-year-old male presenting to emergency Department with a chief complaint of constipation. Patient had an appendix repair approximately 2 months ago and has developed several bowel structures. Patient reports he has been passing flatus without issues but has not had a bowel movement in 4 days. Patient denies any nausea or vomiting. Patient reports that he is eating and drinking without issues. Patient does take a stool softener and a laxative but has not been able to have a bowel movement. Patient denies any urinary symptoms. Labs are unremarkable. KUB is indicative of a possible obstruction or ileus. Patient was given soapsuds enema. Patient reports he had a bowel movement but reports that he is not fully emptying. Patient still reports some bloating. Patient will be admitted for further evaluation. CT of abdomen and pelvis pending. Patient will be admitted. Admitting physician is Dr. Ferrera. - Lab Data Result diagrams: 01/19/19 00:46 01/19/19 00:46 Lab Results 01/19/19 01/19/19 01/19/19 Range/Units 00:46 00:46 00:46 WBC 10.0 (3.8-10.6) k/uL RBC 4.78 (4.30-5.90) m/uL Hgb 14.7 (13.0-17.5) gm/dL Hct 44.0 (39.0-53.0) % MCV 92.0 (80.0-100.0) fL MCH 30.7 (25.0-35.0) pg MCHC 33.3 (31.0-37.0) g/dL RDW 15.7 H (11.5-15.5) % Plt Count 251 (150-450) k/uL Neutrophils % 63 % Lymphocytes % 22 % Monocytes % 8 % Eosinophils % 4 % Basophils % 1 % Neutrophils # 6.2 (1.3-7.7) k/uL Lymphocytes # 2.2 (1.0-4.8) k/uL Monocytes # 0.8 (0-1.0) k/uL Eosinophils # 0.4 (0-0.7) k/uL Basophils # 0.1 (0-0.2) k/uL Sodium 139 (137-145) mmol/L Potassium 4.1 (3.5-5.1) mmol/L Chloride 102 (98-107) mmol/L Carbon Dioxide 26 (22-30) mmol/L Anion Gap 11 mmol/L BUN 16 (9-20) mg/dL Creatinine 0.79 (0.66-1.25) mg/dL Est GFR (CKD-EPI)AfAm >90 (>60 ml/min/1.73 sqM) Est GFR (CKD-EPI)NonAf >90 (>60 ml/min/1.73 sqM) Glucose 106 H (74-99) mg/dL Calcium 9.6 (8.4-10.2) mg/dL Total Bilirubin 0.3 (0.2-1.3) mg/dL AST 24 (17-59) U/L ALT 31 (21-72) U/L Alkaline Phosphatase 86 (38-126) U/L Total Protein 7.1 (6.3-8.2) g/dL Albumin 4.3 (3.5-5.0) g/dL Amylase 38 (30-110) U/L Lipase <10 L (23-300) U/L Urine Color Yellow Urine Appearance Clear (Clear) Urine pH 5.5 (5.0-8.0) Ur Specific [place] 1.015 (1.001-1.035) Urine Protein Negative (Negative) Urine Glucose (UA) Negative (Negative) Urine Ketones Negative (Negative) Urine Blood Negative (Negative) Urine Nitrite Negative (Negative) Urine Bilirubin Negative (Negative) Urine Urobilinogen 2.0 (<2.0) mg/dL Ur Leukocyte Esterase Negative (Negative) Disposition Clinical Impression: Abdominal bloating, Constipation, Small bowel obstruction Disposition: HOME SELF-CARE Condition: Stable Instructions (If sedation given, give patient instructions): Ileus (ED) Additional Instructions: Patient will be admitted. Is patient prescribed a controlled substance at d/c from ED?: No Referrals: Lurdes Swanson MD [Primary Care Provider] - 1-2 days Time of Disposition: 03:54
--- NOTE | 2019-01-19 05:00 | CT ---
EXAM: CT Abdomen and Pelvis With Intravenous Contrast CLINICAL HISTORY: ITS.REASON CT Reason: poss bowel obstruction on kub TECHNIQUE: Axial computed tomography images of the abdomen and pelvis with intravenous contrast. CTDI is 17 mGy and DLP is 665 mGy-cm. This CT exam was performed using one or more of the following dose reduction techniques: automated exposure control, adjustment of the mA and/or kV according to patient size, and/or use of iterative reconstruction technique. COMPARISON: CT abdomen 10/30/18, KUB 01/19/19 FINDINGS: Lung bases: No mass. No consolidation. ABDOMEN: Liver: Enlarged steatosis. Gallbladder and bile ducts: Unremarkable. Pancreas: Unremarkable. Spleen: Unremarkable. Adrenals: Unremarkable. Kidneys and ureters: No hydronephrosis. Cysts. Stomach and bowel: Colonic diverticulosis. Dilated loops of small bowel with transition point in the right lower abdomen. PELVIS: Appendix: No evidence of appendicitis. Bladder: Unremarkable. Reproductive: Unremarkable. ABDOMEN and PELVIS: Intraperitoneal space: Unremarkable. Bones/joints: No acute fractures. Unchanged mild inferior endplate wedging of T12. No retropulsion. Evidence of DISH. Soft tissues: Midline abdominal surgical incision. Small fat- containing ventral hernia. No inflammation. Vasculature: No abdominal aortic aneurysm. Lymph nodes: No enlarged lymph nodes. IMPRESSION: 1. Partial small bowel obstruction with transition point in the right lower abdomen. 2. Hepatomegaly with steatosis. 3. Small fat-containing ventral hernia. No definite incarceration. 4. Colonic diverticulosis.
[2019-01-19] MEDS ORDERED: NALOXONE 0.4 MG/ML 1 ML VIAL IV PRN (06:00)
[2019-01-19] MEDS ORDERED: ONDANSETRON 4 MG/2 ML VIAL IVP PRN (10:39)
[2019-01-19] MEDS ORDERED: ACETAMINOPHEN TAB 325 MG TAB PO PRN (10:39)
--- NOTE | 2019-01-19 10:41 | P.HPIM ---
History of Present Illness H&P Date: 01/19/19 Chief Complaint: Abdominal pain This is a 63-year-old man patient of Dr. Swanson. Patient presented to the ER on 01/19/2019 with complaints of abdominal pain. Abdominal CT and KUB x-ray was completed in the emergency room. KUB x-ray revealed dilated loops of bowel representing small bowel obstruction or ileus. No free air was noted. CT of abdomen and pelvis showed partial small bowel obstruction with transition point in the right lower abdomen, colonic diverticulosis. Patient received soapsuds enema in the emergency room, which resulted in a bowel movement. Patient was previously admitted in November 2018 for recurrent chronic high-grade small bowel obstruction with chronic abdominal pain. Patient underwent surgery on 11/06/2018 for laparoscopic for lysis of adhesions, and had an open abdominal extensive lysis of adhesions on 11/16/2018, with Dr. Lynn. Following surgery patient had wound VAC application, and received PPN nutrition until patient was able to tolerate enteral nutrition. Patient has a past medical history of DVT, GERD, hyperlipidemia pneumonia, history of multiple bowel obstructions, and C. diff. Past surgical history includes history of exploratory laparotomy with lysis of adhesions in 2014. Patient seen today and appears to be resting comfortably. Patient has complaints of pain 4 out of 10, patient states his pain has been improved since admission. She denies nausea/vomiting, patient denies fever or chills, patient denies swelling of extremities, patient denies recent weight loss. Patient states last bowel movement was today. Patient states that he is passing flatus. Patient complains of mild tenderness of abdomen in right and left lower quadrants. Review of Systems Please refer to HPI otherwise unremarkable Gastrointestinal: Reports as per HPI (As per HPI) Past Medical History Past Medical History: Cancer, Deep Vein Thrombosis (DVT), GERD/Reflux, Hyperlipidemia, Pneumonia Additional Past Medical History / Comment(s): SBOs, L lower leg DVT, blood clot behind R eye, basal skin cancer with removals, pneumonia with SIRS, sinus problems, low back pain, L foot plantar fascitis, urine flow issues at times, past hiatal hernia-(sx) History of Any Multi-Drug Resistant Organisms: C-DIFF Date of last positivie culture/infection: 2009 MDRO Source:: stool Past Surgical History: Adenoidectomy, Bowel Resection, Cholecystectomy, Hernia Repair, Tonsillectomy Additional Past Surgical History / Comment(s): Exploratory lap with lysis of adhesions, small bowel decompression, yamileth fundiplication, EGD, colonoscopies/benign polypectomies, T&A twice, skin cancer removals, Past Anesthesia/Blood Transfusion Reactions: No Reported Reaction Past Psychological History: No Psychological Hx Reported Smoking Status: Never smoker Past Alcohol Use History: None Reported Past Drug Use History: None Reported - Past Family History Mother Family Medical History: Cancer, Diabetes Mellitus Additional Family Medical History / Comment(s): Emphysema, heart problems, COLON CANCER. Father Additional Family Medical History / Comment(s): COLON CA LIVER CA,MULTIPLE MYELOMA, bone cancer Medications and Allergies Home Medications Medication Instructions Recorded Confirmed Type Multivitamins, Thera [Multivitamin 2 tab PO BID 04/04/15 01/19/19 History (formulary)] Ascorbic Acid [Vitamin C] 1,000 mg PO BID 01/19/19 01/19/19 History Calcium Carbonate/Vitamin D3 1 tab PO BID 01/19/19 01/19/19 History [Calcium 500-Vit D3 200 Tablet] Docusate [Colace] 100 mg PO BID 01/19/19 01/19/19 History L.acidoph,Paracasei, B.lactis 1 cap PO DAILY 01/19/19 01/19/19 History [Probiotic] [place]-3 Fatty Acids/Fish Oil [Fish 1 cap PO BID 01/19/19 01/19/19 History Oil 1,000 mg Softgel] Allergies Allergy/AdvReac Type Severity Reaction Status Date / Time morphine Allergy Rash/Hives Verified 01/19/19 07:05 Penicillins Allergy Rash/Hives, Verified 01/19/19 07:05 WHEEZING Physical Exam Vitals: Vital Signs Temp Pulse Resp BP Pulse Ox 01/19/19 08:46 97.6 F 71 18 109/59 98 01/19/19 06:42 98.1 F 70 18 119/81 96 01/19/19 05:01 97.5 F L 68 18 104/64 98 01/19/19 01:25 97 F L 68 18 122/80 96 01/18/19 22:56 97.9 F 79 20 125/80 96 Intake and Output 01/18/19 01/19/19 01/19/19 22:59 06:59 14:59 Other: Weight 107.048 kg Head normocephalic Neck supple Lungs clear to auscultation bilaterally no wheezing or crackles Heart regular rate and rhythm S1-S2, no rub or gallop Abdomen is soft, mild tenderness noted on right and left lower quadrants , nondistended, positive bowel sounds no hepatosplenomegaly Extremities no edema Neuro alert and orientated to 3 Results CBC & Chem 7: 01/19/19 00:46 01/19/19 00:46 Labs: Abnormal Lab Results - Last 24 Hours (Table) 01/19/19 01/19/19 Range/Units 00:46 00:46 RDW 15.7 H (11.5-15.5) % Glucose 106 H (74-99) mg/dL Lipase <10 L (23-300) U/L Assessment and Plan Assessment: 1. Abdominal pain related to small bowel obstruction. KUB x-ray and abdominal pelvic CT completed in emergency room. KUB x-ray revealed dilated loops of bowel likely represent representing small bowel obstruction or ileus, no free air noted. Abdominal pelvis CT revealed partial small bowel obstruction with transition point in the right lower abdomen, colonic diverticulosis. Patient was given soapsuds enema in emergency room, which resulted in a bowel movement. Bowel sounds noted in all 4 quadrants with physical exam. Patient states abdominal pain has improved to 4 out of 10. Surgical services consulted. 2. History of recurrent small bowel obstruction. Recent surgery on 11/06/2018 laparoscopic lysis of adhesions, and patient underwent open extensive lysis of adhesions on 11/16/[address] Lynn. 3. History of exploratory lap with lysis of adhesions 2017. 4. History of DVT 15 years ago. Patient reports he is on Coumadin and com pleted treatment no longer on anticoagulation. 5. History of GERD 6. History of hyperlipidemia 7. History of skin cancer DVT prophylaxis Lovenox. GI prophylaxis Protonix. Time with Patient: Greater than 30 (Greater than 60% of the total time spent in counseling and coordination of care. I performed an examination of the patient and discussed their management with the Nurse Practitioner. I have reviewed the Nurse Practitioner's notes and agree with the documented findings and plan of care)
[2019-01-19] MEDS: MAGNESIUM HYDROXIDE 2,400 MG/10 ML CUP PO SCH (11:35)
[2019-01-19] MEDS: METOCLOPRAMIDE 5 MG/ML 2 ML VIAL IVP SCH ×3 (11:35→23:32)
[2019-01-19] MEDS: SODIUM CHLORIDE 0.9% 1,000 ML IV SCH (11:35)
[2019-01-19] MEDS: SIMETHICONE 40 MG/0.6 ML DROPS 2,000 MG/30 ML BOTTLE PO SCH ×3 (12:41→21:48)
--- NOTE | 2019-01-19 14:08 | P.GSCN ---
<Donna Barone - Last Filed: 01/19/19 14:01> History of Present Illness Consult date: 01/19/19 Reason for Consult: SBO Requesting physician: Cheri Rehman History of present illness: CHIEF COMPLAINT: Abdominal pain HISTORY OF PRESENT ILLNESS: 63-year-old male with a history of bowel obstructio ns who underwent laparoscopic lysis of adhesions on 11/06/2017. Patient readmitted after initial surgery for abdominal pain and underwent extensive open lysis of adhesions on 11/16/2018. Patient reports he was doing well at home and fell when he began having abdominal pain. Patient reports he felt constipated so his gave him an enema. He had a bowel movement and states he felt better. However over the last couple days his abdominal pain has returned and worsened in severity. He reports feeling bloated and having a lot of gas pain. He is passing flatus this morning. He reports having a bowel movement this morning. He did receive an enema this morning in the emergency ro om. Patient reports his abdominal pain is not as bad as it was with his previous obstructions. He reports his abdominal pain is mostly in the mid abdominal region. He denies any right lower quadrant abdominal pain which is where his pain has previously been during previous obstructions. He denies any nausea or vomiting. PAST MEDICAL HISTORY: See list. PAST SURGICAL HISTORY: See list. MEDICATIONS: See list. ALLERGIES: See list. SOCIAL HISTORY: No illicit drug use. REVIEW OF SYSTEMS: CONSTITUTIONAL: Denies fever or chills. HEENT: Denies blurred vision, vision changes, or eye pain. Denies hemoptysis ENDOCRINE: Denies heat or cold intolerance. CARDIOVASCULAR: Denies chest pain or pressure. RESPIRATORY: No shortness of breath. GASTROINTESTINAL: See HPI for pertinent findings. NEURO: Denies history of seizures. PSYCH: No depression or suicidal ideation HEMATOLOGIC: Denies bleeding disorders. LYMPHATIC: The patient denies any lumps and bumps around the neck. GENITOURINARY: Denies any blood in urine or increased urinary frequency. MUSCULOSKELETAL: Denies myalgias. Denies joint swelling. Denies decreased range of motion beyond patients baseline. SKIN: Denies pruitis. Denies rash. PHYSICAL EXAM: VITAL SIGNS: Reviewed GENERAL: Well-developed in no acute distress. HEENT: No sclera icterus. Extraocular movements grossly intact. Moist buccal mucosa. Head is atraumatic, normocephalic. Hears conversational speech. No nasal drainage. NECK: Supple without lymphadenopathy. CHEST: Non-labored respirations and equal bilateral excursions. CARDIOVASCULAR: Regular rate with regular rhythm. Palpable 2+ radial pulses. ABDOMEN: Soft. Nondistended. Slightly bloated. Minimal discomfort with palpation of mid abdomen. No discomfort with palpation of right lower quadrant. No peritoneal signs. MUSCULOSKELETAL: No clubbing, cyanosis or edema. NEUROLOGIC: No focal or lateralizing signs. Cranial nerves II through XII gr ossly intact. PSYCH: Appropriate affect. Alert and oriented to person, place and time. SKIN: Well perfused. Good skin turgor. LABORATORY DATA: WBC 10.0. Hemoglobin 14.7. Potassium 4.1. BUN 16. Creatinine 0.79. Amylase 38. Lipase less than 10. IMAGING: CT abdomen and pelvis: Partial small bowel obstruction with transition point in the right lower abdomen. Hepatomegaly with steatosis. Small fat-containing ventral hernia. No definite incarceration. Diverticulosis. ASSESSMENT: 1. Abdominal discomfort 2. Constipation with gas pain 3. Small bowel obstruction 4. History of laparoscopic lysis of adhesions on 11/06/2017 5. History of extensive open lysis of adhesions on 11/16/2018 PLAN: CT shows evidence of SBO with transition point in right lower quadrant. However, patient denies pain or discomfort in right lower quadrant where he previously had obstructions and abdominal pain. He is passing flatus and having BMs. No need for NG tube as he does not have any nausea or vomiting. He may begin clear liquid diet. Will place patient on Reglan IV, milk of Magnesia daily and simethicone drops. No immediate surgical intervention recommended. If patient continues to have bowel movements and tolerates diet, possible discharge within the next 48 hours. He will be discharged home with MiraLAX daily to prevent constipation. Nurse practitioner note has been reviewed by physician. Signing provider agrees with the documented findings, assessment, and plan of care. Past Medical History Past Medical History: Cancer, Deep Vein Thrombosis (DVT), GERD/Reflux, Hyperlipidemia, Pneumonia Additional Past Medical History / Comment(s): SBOs, L lower leg DVT, blood clot behind R eye, basal skin cancer with removals, pneumonia with SIRS, sinus problems, low back pain, L foot plantar fascitis, urine flow issues at times, past hiatal hernia-(sx) History of Any Multi-Drug Resistant Organisms: C-DIFF Year Discovered:: 2009 MDRO Source:: stool Past Surgical History: Adenoidectomy, Bowel Resection, Cholecystectomy, Hernia Repair, Tonsillectomy Additional Past Surgical History / Comment(s): Exploratory lap with lysis of adhesions, small bowel decompression, yamileth fundiplication, EGD, colonoscopies/benign polypectomies, T&A twice, skin cancer removals, Past Anesthesia/Blood Transfusion Reactions: No Reported Reaction Past Psychological History: No Psychological Hx Reported Smoking Status: Never smoker Past Alcohol Use History: None Reported Past Drug Use History: None Reported - Past Family History Mother Family Medical History: Cancer, Diabetes Mellitus Additional Family Medical History / Comment(s): Emphysema, heart problems, COLON CANCER. Father Additional Family Medical History / Comment(s): COLON CA LIVER CA,MULTIPLE MYELOMA, bone cancer Medications and Allergies Home Medications Medication Instructions Recorded Confirmed Type Multivitamins, Thera [Multivitamin 2 tab PO BID 04/04/15 01/19/19 History (formulary)] Ascorbic Acid [Vitamin C] 1,000 mg PO BID 01/19/19 01/19/19 History Calcium Carbonate/Vitamin D3 1 tab PO BID 01/19/19 01/19/19 History [Calcium 500-Vit D3 200 Tablet] Docusate [Colace] 100 mg PO BID 01/19/19 01/19/19 History L.acidoph,Paracasei, B.lactis 1 cap PO DAILY 01/19/19 01/19/19 History [Probiotic] Bow-3 Fatty Acids/Fish Oil [Fish 1 cap PO BID 01/19/19 01/19/19 History Oil 1,000 mg Softgel] Allergies Allergy/AdvReac Type Severity Reaction Status Date / Time morphine Allergy Rash/Hives Verified 01/19/19 07:05 Penicillins Allergy Rash/Hives, Verified 01/19/19 07:05 WHEEZING Surgical - Exam Vital Signs Temp Pulse Resp BP Pulse Ox 97.9 F 79 20 125/80 96 01/18/19 22:56 01/18/19 22:56 01/18/19 22:56 01/18/19 22:56 01/18/19 22:56 Results - Labs 01/19/19 00:46 01/19/19 00:46 Abnormal Lab Results - Last 24 Hours (Table) 01/19/19 01/19/19 Range/Units 00:46 00:46 RDW 15.7 H (11.5-15.5) % Glucose 106 H (74-99) mg/dL Lipase <10 L (23-300) U/L Diabetes panel 01/19/19 Range/Units 00:46 Sodium 139 (137-145) mmol/L Potassium 4.1 (3.5-5.1) mmol/L Chloride 102 (98-107) mmol/L Carbon Dioxide 26 (22-30) mmol/L BUN 16 (9-20) mg/dL Creatinine 0.79 (0.66-1.25) mg/dL Glucose 106 H (74-99) mg/dL Calcium 9.6 (8.4-10.2) mg/dL AST 24 (17-59) U/L ALT 31 (21-72) U/L Alkaline Phosphatase 86 (38-126) U/L Total Protein 7.1 (6.3-8.2) g/dL Albumin 4.3 (3.5-5.0) g/dL Calcium panel 01/19/19 Range/Units 00:46 Calcium 9.6 (8.4-10.2) mg/dL Albumin 4.3 (3.5-5.0) g/dL Pituitary panel 01/19/19 Range/Units 00:46 Sodium 139 (137-145) mmol/L Potassium 4.1 (3.5-5.1) mmol/L Chloride 102 (98-107) mmol/L Carbon Dioxide 26 (22-30) mmol/L BUN 16 (9-20) mg/dL Creatinine 0.79 (0.66-1.25) mg/dL Glucose 106 H (74-99) mg/dL Calcium 9.6 (8.4-10.2) mg/dL Adrenal panel 01/19/19 Range/Units 00:46 Sodium 139 (137-145) mmol/L Potassium 4.1 (3.5-5.1) mmol/L Chloride 102 (98-107) mmol/L Carbon Dioxide 26 (22-30) mmol/L BUN 16 (9-20) mg/dL Creatinine 0.79 (0.66-1.25) mg/dL Glucose 106 H (74-99) mg/dL Calcium 9.6 (8.4-10.2) mg/dL Total Bilirubin 0.3 (0.2-1.3) mg/dL AST 24 (17-59) U/L ALT 31 (21-72) U/L Alkaline Phosphatase 86 (38-126) U/L Total Protein 7.1 (6.3-8.2) g/dL Albumin 4.3 (3.5-5.0) g/dL Assessment and Plan (1) Abdominal bloating Current Visit: Yes Status: Acute Code(s): R14.0 - ABDOMINAL DISTENSION (GASEOUS) SNOMED Code(s): 846268197 (2) Constipation Current Visit: Yes Status: Acute Code(s): K59.00 - CONSTIPATION, UNSPECIFIED SNOMED Code(s): 43574868 (3) Small bowel obstruction Current Visit: Yes Status: Acute Code(s): K56.69 - OTHER INTESTINAL OBSTRUCTION * DO NOT USE * SNOMED Code(s): 483278933 (4) Abdominal pain Current Visit: No Status: Acute Code(s): R10.9 - UNSPECIFIED ABDOMINAL PAIN SNOMED Code(s): 02485282 <ShaneTrinh N - Last Filed: 01/19/19 19:28> History of Present Illness History of present illness: Clinically, he reports less abdominal pain than his prior admissions for small bowel obstruction. He is passing flatus and had another bowel movement since admission into the ER following his CT scan. Hold NG tube. Clear liquid diet as above. Surgical - Exam Vital Signs Temp Pulse Resp BP Pulse Ox 97.9 F 79 20 125/80 96 01/18/19 22:56 01/18/19 22:56 01/18/19 22:56 01/18/19 22:56 01/18/19 22:56 Results - Labs 01/19/19 00:46 01/19/19 00:46 Abnormal Lab Results - Last 24 Hours (Table) 01/19/19 01/19/19 Range/Units 00:46 00:46 RDW 15.7 H (11.5-15.5) % Glucose 106 H (74-99) mg/dL Lipase <10 L (23-300) U/L Diabetes panel 01/19/19 Range/Units 00:46 Sodium 139 (137-145) mmol/L Potassium 4.1 (3.5-5.1) mmol/L Chloride 102 (98-107) mmol/L Carbon Dioxide 26 (22-30) mmol/L BUN 16 (9-20) mg/dL Creatinine 0.79 (0.66-1.25) mg/dL Glucose 106 H (74-99) mg/dL Calcium 9.6 (8.4-10.2) mg/dL AST 24 (17-59) U/L ALT 31 (21-72) U/L Alkaline Phosphatase 86 (38-126) U/L Total Protein 7.1 (6.3-8.2) g/dL Albumin 4.3 (3.5-5.0) g/dL Calcium panel 01/19/19 Range/Units 00:46 Calcium 9.6 (8.4-10.2) mg/dL Albumin 4.3 (3.5-5.0) g/dL Pituitary panel 01/19/19 Range/Units 00:46 Sodium 139 (137-145) mmol/L Potassium 4.1 (3.5-5.1) mmol/L Chloride 102 (98-107) mmol/L Carbon Dioxide 26 (22-30) mmol/L BUN 16 (9-20) mg/dL Creatinine 0.79 (0.66-1.25) mg/dL Glucose 106 H (74-99) mg/dL Calcium 9.6 (8.4-10.2) mg/dL Adrenal panel 01/19/19 Range/Units 00:46 Sodium 139 (137-145) mmol/L Potassium 4.1 (3.5-5.1) mmol/L Chloride 102 (98-107) mmol/L Carbon Dioxide 26 (22-30) mmol/L BUN 16 (9-20) mg/dL Creatinine 0.79 (0.66-1.25) mg/dL Glucose 106 H (74-99) mg/dL Calcium 9.6 (8.4-10.2) mg/dL Total Bilirubin 0.3 (0.2-1.3) mg/dL AST 24 (17-59) U/L ALT 31 (21-72) U/L Alkaline Phosphatase 86 (38-126) U/L Total Protein 7.1 (6.3-8.2) g/dL Albumin 4.3 (3.5-5.0) g/dL
[2019-01-19] MEDS: DOCUSATE 100 MG CAP PO SCH (21:48)
[2019-01-20] MEDS: METOCLOPRAMIDE 5 MG/ML 2 ML VIAL IVP SCH ×2 (05:10→11:25)
[2019-01-20] MEDS: SODIUM CHLORIDE 0.9% 1,000 ML IV SCH (05:12)
[2019-01-20] MEDS: DOCUSATE 100 MG CAP PO SCH (08:11)
[2019-01-20] MEDS: SIMETHICONE 40 MG/0.6 ML DROPS 2,000 MG/30 ML BOTTLE PO SCH ×2 (08:12→14:35)
[2019-01-20] MEDS: MAGNESIUM HYDROXIDE 2,400 MG/10 ML CUP PO SCH (08:12)
[2019-01-20 08:31] VITALS: RESP 16
[2019-01-20 08:40] LABS: Basophils # (A) 0.1 k/uL (0-0.2); Basophils % (A) 1 %; Eosinophils # (A) 0.5 k/uL (0-0.7); Eosinophils % (A) 8 %; HCT 45.8 % (39.0-53.0); HGB 15.1 gm/dL (13.0-17.5); Lymphocytes # (A) 1.7 k/uL (1.0-4.8); Lymphocytes % (A) 29 %; MCH 30.8 pg (25.0-35.0); MCV 93.3 fL (80.0-100.0); Mean Platelet Volume 7.1; Monocytes # (A) 0.4 k/uL (0-1.0); Monocytes % (A) 8 %; Neutrophils # (A) 2.9 k/uL (1.3-7.7); Neutrophils % (A) 51 %; Platelet Count 245 k/uL (150-450); RBC 4.91 m/uL (4.30-5.90); RDW 13.8 % (11.5-15.5); WBC 5.8 k/uL (3.8-10.6)
[2019-01-20 08:51] LABS: African American GFR (CKD) >90 (>60 ml/min/1.73 sqM); Albumin 4.1 g/dL (3.5-5.0); Anion Gap 11 mmol/L; Blood Urea Nitrogen 11 mg/dL (9-20); Carbon Dioxide 25 mmol/L (22-30); Chloride 105 mmol/L (98-107); Glucose 128 mg/dL (74-99); Sodium 141 mmol/L (137-145); Total Bilirubin 0.8 mg/dL (0.2-1.3); Total Protein 6.9 g/dL (6.3-8.2)
[2019-01-20 09:00] LABS: ALT 32 U/L (21-72); AST 34 U/L (17-59); Alkaline Phosphatase 58 U/L (38-126); Potassium 4.2 mmol/L (3.5-5.1)
[2019-01-20] MEDS ORDERED: ENOXAPARIN 40 MG/0.4 ML SYRINGE SQ SCH (09:00)
[2019-01-20] MEDS ORDERED: LACTOBACILLUS ACIDOPH & BULGAR 1 EACH PACKET PO SCH (09:00)
[2019-01-20] MEDS ORDERED: PANTOPRAZOLE 40 MG/10 ML VIAL IVP SCH (09:00)
--- NOTE | 2019-01-20 10:39 | P.PN ---
Subjective Progress Note Date: 01/20/19 This is a 63-year-old man patient of Dr. Swanson. Patient presented to the ER on 01/19/2019 with complaints of abdominal pain. Abdominal CT and KUB x-ray was completed in the emergency room. KUB x-ray revealed dilated loops of bowel representing small bowel obstruction or ileus. No free air was noted. CT of abdomen and pelvis showed partial small bowel obstruction with transition point in the right lower abdomen, colonic diverticulosis. Patient received soapsuds enema in the emergency room, which resulted in a bowel movement. Patient was previously admitted in November 2018 for recurrent chronic high-grade small bowel obstruction with chronic abdominal pain. Patient underwent surgery on 11/06/2018 for laparoscopic for lysis of adhesions, and had an open abdominal extensive lysis of adhesions on 11/16/2018, with Dr. Lynn. Following surgery patient had wound VAC application, and received PPN nutrition until patient was able to tolerate enteral nutrition. Patient has a past medical his tory of DVT, GERD, hyperlipidemia pneumonia, history of multiple bowel obstructions, and C. diff. Past surgical history includes history of exploratory laparotomy with lysis of adhesions in 2014. Patient seen today and appears to be resting comfortably. Patient has complaints of pain 4 out of 10, patient states his pain has been improved since admission. She denies nausea/vomiting, patient denies fever or chills, patient denies swelling of extremities, patient denies recent weight loss. Patient states last bowel movement was today. Patient states that he is passing flatus. Patient complains of mild tenderness of abdomen in right and left lower quadrants. On 01/20/2019, patient is alert and interactive, resting comfortably in bed. Patient denies pain, N/V, or abdominal distension. He denies any chest pain, SOB, and problems with urination. He is tolerating his clear liquid diet we, but does report having 8-10 episodes of yellowish, liquid stools since admission. He states that it seems to be slowing down today. Objective - Vital Signs Vital signs: Vital Signs Temp 97.3 F L 01/20/19 07:43 Pulse 75 01/20/19 07:43 Resp 16 01/20/19 07:43 BP 106/74 01/20/19 07:43 Pulse Ox 92 L 01/20/19 07:43 Intake & Output 01/19/19 01/20/19 01/20/19 18:59 06:59 18:59 Intake Total 320 Balance 320 Intake: Oral 320 Other: # Voids 2 3 # Bowel Movements 3 - Exam Head normocephalic Neck supple Lungs clear to auscultation bilaterally no wheezing or crackles Heart regular rate and rhythm S1-S2, no rub or gallop Abdomen is soft, nontender, nondistended, positive bowel sounds no hepatosplenomegaly Extremities no edema Neuro alert and orientated to 3 - Labs CBC & Chem 7: 01/20/19 08:18 01/20/19 08:18 Labs: Abnormal Lab Results - Last 24 Hours (Table) 01/20/19 Range/Units 08:18 Glucose 128 H (74-99) mg/dL Assessment and Plan Assessment: 1. Abdominal pain related to small bowel obstruction. KUB x-ray and abdominal pelvic CT completed in emergency room. KUB x-ray revealed dilated loops of man wel likely represent representing small bowel obstruction or ileus, no free air noted. Abdominal pelvis CT revealed partial small bowel obstruction with transition point in the right lower abdomen, colonic diverticulosis. Patient was given soapsuds enema in emergency room, which resulted in a bowel movement. Per surgical services no surgical intervention recommended. Possibly advance to regular diet, awaiting surgical service's confirmation. Possible discharge within 48 hours patient will be discharged home with MiraLAX to prevent constipation. 2. History of recurrent small bowel obstruction. Recent surgery on 11/06/2018 laparoscopic lysis of adhesions, and patient underwent open extensive lysis of adhesions on 11/16/[address] Lynn. 3. History of exploratory lap with lysis of adhesions 2017. 4. History of DVT 15 years ago. Patient reports he is on Coumadin and comp leted treatment no longer on anticoagulation. 5. History of GERD 6. History of hyperlipidemia 7. History of skin cancer DVT prophylaxis Lovenox. GI prophylaxis Protonix. I performed an examination of the patient and discussed their management with the Nurse Practitioner. I have reviewed the Nurse Practitioner's notes and agree with the documented findings and plan of care
[2019-01-20 13:08] VITALS: BP 112/69; PULSE 74; TEMP 98
--- NOTE | 2019-01-20 13:45 | P.DS ---
Providers Date of admission: 01/19/19 04:10 Expected date of discharge: 01/20/19 Attending physician: Cesar Ferrera Consults: 01/19/19 06:01 Consult Physician Urgent Consulting Provider: Trinh Lynn Consult Reason/Comments: SBO in patient who is 2mo s/p appy Do you want consulting provider notified?: Yes, Notify in am Primary care physician: Lurdes Swanson Hospital Course: Discharge diagnosis 1. Abdominal pain related to small bowel obstruction. KUB x-ray and abdominal pelvic CT completed in emergency room. KUB x-ray revealed dilated loops of bowel likely represent representing small bowel obstruction or ileus, no free air noted. Abdominal pelvis CT revealed partial small bowel obstruction with transition point in the right lower abdomen, colonic diverticulosis. Patient was given soapsuds enema in emergency room, which resulted in a bowel movement. Per surgical services no surgical intervention recommended. Possibly advance to regular diet, awaiting surgical service's confirmation. Possible discharge within 48 hours patient will be discharged home with MiraLAX to prevent constipation. Has been cleared for discharge patient has been cleared for discharge. Patient has been having bowel movements. Diarrhea has subsided. Tolerating full liquid diet 2. History of recurrent small bowel obstruction. Recent surgery on 11/06/2018 laparoscopic lysis of adhesions, and patient underwent open extensive lysis of adhesions on 11/16/[address] Lynn. 3. History of exploratory lap with lysis of adhesions 2017. 4. History of DVT 15 years ago. Patient reports he is on Coumadin and completed treatment no longer on anticoagulation. 5. History of GERD 6. History of hyperlipidemia 7. History of skin cancer Hospital course This is a 63-year-old man patient of Dr. Swanson. Patient presented to the ER on 01/19/2019 with complaints of abdominal pain. Abdominal CT and KUB x-ray was completed in the emergency room. KUB x-ray revealed dilated loops of bowel representing small bowel obstruction or ileus. No free air was noted. CT of abdomen and pelvis showed partial small bowel obstruction with transition point in the right lower abdomen, colonic diverticulosis. Patient received soapsuds enema in the emergency room, which resulted in a bowel movement. Patient was previously admitted in November 2018 for recurrent chronic high-grade small bowel obstruction with chronic abdominal pain. Patient underwent surgery on 11/06/2018 for laparoscopic for lysis of adhesions, and had an open abdominal extensive lysis of adhesions on 11/16/2018, with Dr. Lynn. Following surgery patient had wound VAC application, and received PPN nutrition until patient was able to tolerate enteral nutrition. Patient has a past medical history of DVT, GERD, hyperlipidemia pneumonia, history of multiple bowel obstructions, and C. diff. Past surgical history includes history of explo ratory laparotomy with lysis of adhesions in 2014. Patient seen today and appears to be resting comfortably. Patient has complaints of pain 4 out of 10, patient states his pain has been improved since admission. She denies nausea/vomiting, patient denies fever or chills, patient denies swelling of extremities, patient denies recent weight loss. Patient states last bowel movement was today. Patient states that he is passing flatus. Patient complains of mild tenderness of abdomen in right and left lower quadrants. On 01/20/2019, patient is alert and interactive, resting comfortably in bed. Patient denies pain, N/V, or abdominal distension. He denies any chest pain, SOB, and problems with urination. He is tolerating his clear liquid diet we, but does report having 8-10 episodes of yellowish, liquid stools since admission. He states that it seems to be slowing down today. Patient has been cleared by surgery for discharge. Patient expresses that he is eager to go home. Patient to follow-up with surgical services. MiraLAX prescription sent per surgical service. Patient to follow-up with PCP for further management I performed an examination of the patient and discussed their management with the Nurse Practitioner. I have reviewed the Nurse Practitioner's notes and agree with the documented findings and plan of care Patient Condition at Discharge: Stable Plan - Discharge Summary New Discharge Prescriptions: New Polyethylene Glycol 3350 [Miralax] 17 gm PO DAILY #60 packet Continue Multivitamins, Thera [Multivitamin (formulary)] 2 tab PO BID [place]-3 Fatty Acids/Fish Oil [Fish Oil 1,000 mg Softgel] 1 cap PO BID Docusate [Colace] 100 mg PO BID Calcium Carbonate/Vitamin D3 [Calcium 500-Vit D3 200 Tablet] 1 tab PO BID Ascorbic Acid [Vitamin C] 1,000 mg PO BID L.acidoph,Paracasei, B.lactis [Probiotic] 1 cap PO DAILY Discharge Medication List Multivitamins, Thera [Multivitamin (formulary)] 2 tab PO BID 04/04/15 [History] Ascorbic Acid [Vitamin C] 1,000 mg PO BID 01/19/19 [History] Calcium Carbonate/Vitamin D3 [Calcium 500-Vit D3 200 Tablet] 1 tab PO BID 01/19/19 [History] Docusate [Colace] 100 mg PO BID 01/19/19 [History] L.acidoph,Paracasei, B.lactis [Probiotic] 1 cap PO DAILY 01/19/19 [History] Tintah-3 Fatty Acids/Fish Oil [Fish Oil 1,000 mg Softgel] 1 cap PO BID 01/19/19 [History] Polyethylene Glycol 3350 [Miralax] 17 gm PO DAILY #60 packet 01/20/19 [Rx] Follow up Appointment(s)/Referral(s): Lurdes Swanson MD [Primary Care Provider] - 1-2 days Trinh Lynn MD [STAFF PHYSICIAN] - 01/26/19 Patient Instructions/Handouts: Ileus (ED) Activity/Diet/Wound Care/Special Instructions: Diet as tolerated Activity as tolerated. Discharge Disposition: HOME SELF-CARE
--- NOTE | 2019-01-20 14:13 | P.PN ---
<Donna Barone A - Last Filed: 01/20/19 14:10> Subjective Progress Note Date: 01/20/19 CHIEF COMPLAINT: Abdominal pain HISTORY OF PRESENT ILLNESS: Patient examined this morning at the bedside. He states his abdominal pain has resolved. No longer experiencing gas pains. Reports multiple bowel movements overnight. Tolerating liquid diet. Denies nausea or vomiting. PHYSICAL EXAM: VITAL SIGNS: Reviewed GENERAL: Well-developed in no acute distress. HEENT: No sclera icterus. Extraocular movements grossly intact. Moist buccal mucosa. Head is atraumatic, normocephalic. Hears conversational speech. No nasal drainage. NECK: Supple without lymphadenopathy. CHEST: Non-labored respirations and equal bilateral excursions. CARDIOVASCULAR: Regular rate with regular rhythm. Palpable 2+ radial pulses. ABDOMEN: Soft. Nondistended. Nontender. Positive bowel sounds. MUSCULOSKELETAL: No clubbing, cyanosis or edema. NEUROLOGIC: No focal or lateralizing signs. Cranial nerves II through XII grossly intact. PSYCH: Appropriate affect. Alert and oriented to person, place and time. SKIN: Well perfused. Good skin turgor. . ASSESSMENT: 1. Abdominal discomfort 2. Constipation with gas pain 3. Small bowel obstruction 4. History of laparoscopic lysis of adhesions on 11/06/2017 5. History of extensive open lysis of adhesions on 11/16/2018 PLAN: Advance diet Stable for discharge home from a surgical standpoint RX provided for Miralax daily Patient to follow up with Dr. Lynn outpatient Nurse practitioner note has been reviewed by physician. Signing provider agrees with the documented findings, assessment, and plan of care. Objective - Vital Signs Vital signs: Vital Signs Temp 98.0 F 01/20/19 13:07 Pulse 74 01/20/19 13:07 Resp 16 01/20/19 13:07 BP 112/69 01/20/19 13:07 Pulse Ox 97 01/20/19 13:07 Intake & Output 01/19/19 01/20/19 01/20/19 18:59 06:59 18:59 Intake Total 320 Balance 320 Intake: Oral 320 Other: # Voids 2 3 # Bowel Movements 3 - Labs CBC & Chem 7: 01/20/19 08:18 01/20/19 08:18 Labs: Abnormal Lab Results - Last 24 Hours (Table) 01/20/19 Range/Units 08:18 Glucose 128 H (74-99) mg/dL Assessment and Plan (1) Abdominal bloating Status: Acute Code(s): R14.0 - ABDOMINAL DISTENSION (GASEOUS) SNOMED Code(s): 062430429 (2) Constipation Status: Acute Code(s): K59.00 - CONSTIPATION, UNSPECIFIED SNOMED Code(s): 57553693 (3) Small bowel obstruction Status: Acute Code(s): K56.69 - OTHER INTESTINAL OBSTRUCTION * DO NOT USE * SNOMED Code(s): 891523983 (4) Abdominal pain Status: Acute Code(s): R10.9 - UNSPECIFIED ABDOMINAL PAIN SNOMED Code(s): 71048971 <Trinh Lynn N - Last Filed: 01/20/19 19:38> Subjective He is doing very well and is stable for discharge. Objective - Vital Signs Vital signs: Vital Signs Temp 98.0 F 01/20/19 13:07 Pulse 74 01/20/19 13:07 Resp 16 01/20/19 13:07 BP 112/69 01/20/19 13:07 Pulse Ox 97 01/20/19 13:07 Intake & Output 01/20/19 01/20/19 01/21/19 06:59 18:59 06:59 Other: # Voids 3 2 - Labs CBC & Chem 7: 01/20/19 08:18 01/20/19 08:18 Labs: Abnormal Lab Results - Last 24 Hours (Table) 01/20/19 Range/Units 08:18 Glucose 128 H (74-99) mg/dL
== END 2019-01-20 14:36 | disposition home or self-care (01) | DRG 390 ==
LOC: EC 22:54 → 4MS4W 01-19 04:10
PROVIDERS: ADMIT Internal Medicine; ATTEND Internal Medicine
DX: K56.600 Partial intestinal obstruction, unspecified as to cause (principal); E78.5 Hyperlipidemia, unspecified; K21.9 Gastro-esophageal reflux disease without esophagitis; K57.30 Diverticulosis of large intestine without perforation or abscess without bleeding; W19.XXXA Unspecified fall, initial encounter; Y92.009 Unspecified place in unspecified non-institutional (private) residence as the place of occurrence of the external cause; Z79.01 Long term (current) use of anticoagulants; Z79.82 Long term (current) use of aspirin; Z80.0 Family history of malignant neoplasm of digestive organs; Z80.7 Family history of other malignant neoplasms of lymphoid, hematopoietic and related tissues; Z82.5 Family history of asthma and other chronic lower respiratory diseases; Z83.3 Family history of diabetes mellitus; Z85.828 Personal history of other malignant neoplasm of skin; Z86.718 Personal history of other venous thrombosis and embolism; Z79.1 Long term (current) use of non-steroidal anti-inflammatories (NSAID); Z79.899 Other long term (current) drug therapy; Z79.891 Long term (current) use of opiate analgesic; Z88.5 Allergy status to narcotic agent; Z88.0 Allergy status to penicillin; Z90.49 Acquired absence of other specified parts of digestive tract
CPT/HCPCS: 36415; 74018; 74177; 80053; 81003; 82150; 83690; 85025; 99285

== ENCOUNTER 2019-03-14 08:18 | Emergency (ER) | payer OTHER, MEDICARE ==
[2019-03-14 08:30] VITALS: RESP 18; TEMP 98.1
--- NOTE | 2019-03-14 09:11 | ED ---
General Adult HPI - General Chief complaint: Chest Pain Stated complaint: pain and tingling down arm Time Seen by Provider: 03/14/19 08:30 Source: patient, RN notes reviewed, old records reviewed Mode of arrival: wheelchair Limitations: no limitations - History of Present Illness Initial comments: 63-year-old male presenting for reevaluation of bilateral chest pain and bilateral arm pain. Patient states he's had these symptoms for approximately one week he was seen at an outside hospital received cardiac workup including heart catheterization. This was reported as normal with no intervention according to the patient. States his symptoms have persisted. He's had fatigue as well. No cough or dyspnea. No abdominal pain vomiting or diarrhea. No fever or chills. Pain is bilateral lateral chest, constant in nature, worse with movement or exertion. - Related Data Home Medications Medication Instructions Recorded Confirmed Multivitamins, Thera [Multivitamin 2 tab PO BID 04/04/15 01/19/19 (formulary)] Ascorbic Acid [Vitamin C] 1,000 mg PO BID 01/19/19 01/19/19 Calcium Carbonate/Vitamin D3 1 tab PO BID 01/19/19 01/19/19 [Calcium 500-Vit D3 200 Tablet] Docusate [Colace] 100 mg PO BID 01/19/19 01/19/19 L.acidoph,Paracasei, B.lactis 1 cap PO DAILY 01/19/19 01/19/19 [Probiotic] [place]-3 Fatty Acids/Fish Oil [Fish 1 cap PO BID 01/19/19 01/19/19 Oil 1,000 mg Softgel] Previous Rx's Medication Instructions Recorded Polyethylene Glycol 3350 [Miralax] 17 gm PO DAILY #60 packet 01/20/19 Allergies Allergy/AdvReac Type Severity Reaction Status Date / Time morphine Allergy Rash/Hives Verified 03/14/19 08:24 Penicillins Allergy Rash/Hives, Verified 03/14/19 08:24 WHEEZING Review of Systems ROS Statement: Those systems with pertinent positive or pertinent negative responses have been documented in the HPI. ROS Other: All systems not noted in ROS Statement are negative. Past Medical History Past Medical History: Cancer, Deep Vein Thrombosis (DVT), GERD/Reflux, Hyperlipidemia, Pneumonia Additional Past Medical History / Comment(s): SBOs, L lower leg DVT, blood clot behind R eye, basal skin cancer with removals, pneumonia with SIRS, sinus problems, low back pain, L foot plantar fascitis, urine flow issues at times, past hiatal hernia-(sx) History of Any Multi-Drug Resistant Organisms: C-DIFF Date of last positivie culture/infection: 2009 MDRO Source:: stool Past Surgical History: Adenoidectomy, Bowel Resection, Cholecystectomy, Hernia Repair, Tonsillectomy Additional Past Surgical History / Comment(s): Exploratory lap with lysis of adhesions, small bowel decompression, yamileth fundiplication, EGD, colonoscopies/benign polypectomies, T&A twice, skin cancer removals, Past Anesthesia/Blood Transfusion Reactions: No Reported Reaction Past Psychological History: No Psychological Hx Reported Smoking Status: Never smoker Past Alcohol Use History: None Reported Past Drug Use History: None Reported - Past Family History Mother Family Medical History: Cancer, Diabetes Mellitus Additional Family Medical History / Comment(s): Emphysema, heart problems, COLON CANCER. Father Additional Family Medical History / Comment(s): COLON CA LIVER CA,MULTIPLE MYELOMA, bone cancer General Exam Limitations: no limitations General appearance: alert, in no apparent distress Head exam: Present: atraumatic, normocephalic Eye exam: Present: normal appearance, PERRL ENT exam: Present: normal exam Neck exam: Present: normal inspection. Absent: tenderness, meningismus Respiratory exam: Present: normal lung sounds bilaterally. Absent: respiratory distress, wheezes, rales Cardiovascular Exam: Present: regular rate, normal rhythm GI/Abdominal exam: Present: soft, distended. Absent: tenderness, guarding Extremities exam: Present: normal inspection, normal capillary refill. Absent: calf tenderness Neurological exam: Present: alert, oriented X3, CN II-XII intact. Absent: motor sensory deficit Psychiatric exam: Present: normal affect, normal mood Skin exam: Present: warm, dry, intact. Absent: cyanosis, diaphoretic Course Vital Signs 03/14/19 03/14/19 08:24 08:56 Temperature 98.1 F Pulse Rate 75 Respiratory 18 18 Rate Blood Pressure 118/74 O2 Sat by Pulse 95 Oximetry EKG Findings - EKG Comments: EKG Findings:: EKG: Normal sinus rhythm left axis deviation, rate 73, MI interval 154, QRS duration 100, QTC 427, no ST segment elevation, overall unchanged since 2014. Medical Decision Making - Medical Decision Making 63-year-old male presenting with bilateral lateral chest pain ongoing for one week. Patient had cardiac workup at an outside facility, these records were reviewed, he had a heart catheterization which showed mild CAD, no blockages, no intervention. Patient's pain is atypical, does seem somewhat positional. 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 His EKG is nonischemic. Chest x-ray and abdominal x-ray are unremarkable. He has normal CBC, normal CMP, negative troponin. Lipase minimally elevated with no abdominal tenderness. Patient offered observation for further evaluation, versus outpatient follow-up. He has an appointment with his senior speech pathologist tomorrow morning. He prefers outpatient follow-up at this time. I feel this is noncardiac chest pain and patient is stable for discharge. - Lab Data Result diagrams: 03/14/19 09:24 03/14/19 09:24 Lab Results 03/14/19 03/14/19 03/14/19 Range/Units 09:24 09:24 09:24 WBC 8.5 (3.8-10.6) k/uL RBC 5.17 (4.30-5.90) m/uL Hgb 16.0 (13.0-17.5) gm/dL Hct 47.2 (39.0-53.0) % MCV 91.1 (80.0-100.0) fL MCH 30.9 (25.0-35.0) pg MCHC 33.9 (31.0-37.0) g/dL RDW 13.4 (11.5-15.5) % Plt Count 253 (150-450) k/uL Neutrophils % 71 % Lymphocytes % 18 % Monocytes % 5 % Eosinophils % 4 % Basophils % 1 % Neutrophils # 6.0 (1.3-7.7) k/uL Lymphocytes # 1.5 (1.0-4.8) k/uL Monocytes # 0.4 (0-1.0) k/uL Eosinophils # 0.3 (0-0.7) k/uL Basophils # 0.1 (0-0.2) k/uL PT (9.0-12.0) sec INR (<1.2) APTT (22.0-30.0) sec Sodium 141 (137-145) mmol/L Potassium 4.3 (3.5-5.1) mmol/L Chloride 105 (98-107) mmol/L Carbon Dioxide 25 (22-30) mmol/L Anion Gap 11 mmol/L BUN 16 (9-20) mg/dL Creatinine 0.75 (0.66-1.25) mg/dL Est GFR (CKD-EPI)AfAm >90 (>60 ml/min/1.73 sqM) Est GFR (CKD-EPI)NonAf >90 (>60 ml/min/1.73 sqM) Glucose 147 H (74-99) mg/dL Calcium 10.1 (8.4-10.2) mg/dL Magnesium 2.1 (1.6-2.3) mg/dL Total Bilirubin 0.4 (0.2-1.3) mg/dL AST 24 (17-59) U/L ALT 25 (21-72) U/L Alkaline Phosphatase 75 (38-126) U/L Troponin I (0.000-0.034) ng/mL NT-Pro-B Natriuret Pep 38 pg/mL Total Protein 7.5 (6.3-8.2) g/dL Albumin 4.5 (3.5-5.0) g/dL Lipase 342 H (23-300) U/L 03/14/19 03/14/19 Range/Units 09:24 10:01 WBC (3.8-10.6) k/uL RBC (4.30-5.90) m/uL Hgb (13.0-17.5) gm/dL Hct (39.0-53.0) % MCV (80.0-100.0) fL MCH (25.0-35.0) pg MCHC (31.0-37.0) g/dL RDW (11.5-15.5) % Plt Count (150-450) k/uL Neutrophils % % Lymphocytes % % Monocytes % % Eosinophils % % Basophils % % Neutrophils # (1.3-7.7) k/uL Lymphocytes # (1.0-4.8) k/uL Monocytes # (0-1.0) k/uL Eosinophils # (0-0.7) k/uL Basophils # (0-0.2) k/uL PT 9.9 (9.0-12.0) sec INR 0.9 (<1.2) APTT 26.1 (22.0-30.0) sec Sodium (137-145) mmol/L Potassium (3.5-5.1) mmol/L Chloride (98-107) mmol/L Carbon Dioxide (22-30) mmol/L Anion Gap mmol/L BUN (9-20) mg/dL Creatinine (0.66-1.25) mg/dL Est GFR (CKD-EPI)AfAm (>60 ml/min/1.73 sqM) Est GFR (CKD-EPI)NonAf (>60 ml/min/1.73 sqM) Glucose (74-99) mg/dL Calcium (8.4-10.2) mg/dL Magnesium (1.6-2.3) mg/dL Total Bilirubin (0.2-1.3) mg/dL AST (17-59) U/L ALT (21-72) U/L Alkaline Phosphatase (38-126) U/L Troponin I <0.012 (0.000-0.034) ng/mL NT-Pro-B Natriuret Pep pg/mL Total Protein (6.3-8.2) g/dL Albumin (3.5-5.0) g/dL Lipase (23-300) U/L Disposition Clinical Impression: Chest pain Disposition: HOME SELF-CARE Condition: Good Instructions (If sedation given, give patient instructions): Chest Pain (ED) Is patient prescribed a controlled substance at d/c from ED?: No Referrals: Lurdes Swanson MD [Primary Care Provider] - 1-2 days Roberto Laureano MD [STAFF PHYSICIAN] - 1-2 days Time of Disposition: 10:42
[2019-03-14 09:34] LABS: Basophils # (A) 0.1 k/uL (0-0.2); Basophils % (A) 1 %; Eosinophils # (A) 0.3 k/uL (0-0.7); Eosinophils % (A) 4 %; HCT 47.2 % (39.0-53.0); Lymphocytes # (A) 1.5 k/uL (1.0-4.8); Lymphocytes % (A) 18 %; MCH 30.9 pg (25.0-35.0); MCHC 33.9 g/dL (31.0-37.0); MCV 91.1 fL (80.0-100.0); Mean Platelet Volume 6.9; Monocytes # (A) 0.4 k/uL (0-1.0); Monocytes % (A) 5 %; Neutrophils % (A) 71 %; Platelet Count 253 k/uL (150-450); RBC 5.17 m/uL (4.30-5.90); RDW 13.4 % (11.5-15.5); WBC 8.5 k/uL (3.8-10.6)
[2019-03-14 09:42] LABS: ALT 25 U/L (21-72); AST 24 U/L (17-59); African American GFR (CKD) >90 (>60 ml/min/1.73 sqM); Albumin 4.5 g/dL (3.5-5.0); Alkaline Phosphatase 75 U/L (38-126); Anion Gap 11 mmol/L; Blood Urea Nitrogen 16 mg/dL (9-20); Calcium 10.1 mg/dL (8.4-10.2); Carbon Dioxide 25 mmol/L (22-30); Chloride 105 mmol/L (98-107); Glucose 147 mg/dL (74-99); Magnesium 2.1 mg/dL (1.6-2.3); Potassium 4.3 mmol/L (3.5-5.1); Sodium 141 mmol/L (137-145); Total Bilirubin 0.4 mg/dL (0.2-1.3); Total Protein 7.5 g/dL (6.3-8.2)
--- NOTE | 2019-03-14 09:45 | XR ---
EXAMINATION TYPE: XR chest 2V DATE OF EXAM: 03/14/2019 HISTORY: Chest Pain. REFERENCE: Previous study dated 11/20/2018. FINDINGS: The lungs remain clear. Pleural space are clear. The heart is not enlarged. IMPRESSION: NO ACUTE CARDIOPULMONARY ABNORMALITY.
--- NOTE | 2019-03-14 09:47 | XR ---
EXAMINATION TYPE: XR KUB , 2 VIEWS DATE OF EXAM ORDERED: 03/14/2019 HISTORY: pain. COMPARISON: Previous study dated 01/19/2019. FINDINGS: The lung bases are clear. Within the abdomen, the abdominal gas pattern is normal. There is no evidence of obstruction or free air. No unusual calcifications are seen. IMPRESSION: NO ACUTE INTRA-ABDOMINAL ABNORMALITY.
[2019-03-14 10:29] LABS: INR 0.9 (<1.2); Partial Thromboplastin Time 26.1 sec (22.0-30.0); Prothrombin Time 9.9 sec (9.0-12.0)
[2019-03-14 10:39] VITALS: BP 119/87; PULSE 76
== END 2019-03-14 10:56 | disposition home or self-care (01) ==
LOC: EC 08:18
DX: R07.9 Chest pain, unspecified (principal); R20.2 Paresthesia of skin; R53.83 Other fatigue; Z79.899 Other long term (current) drug therapy; Z88.0 Allergy status to penicillin; Z88.5 Allergy status to narcotic agent; Z86.718 Personal history of other venous thrombosis and embolism; Z85.828 Personal history of other malignant neoplasm of skin
CPT/HCPCS: 36415; 71046; 74018; 80053; 83690; 83735; 83880; 84484; 85025; 85610; 85730; 93005; 99285

== ENCOUNTER 2019-09-08 23:40 | Inpatient (IN) | payer OTHER, MEDICARE ==
[2019-09-09] MEDS ORDERED: ONDANSETRON 4 MG/2 ML VIAL ONE (00:50)
[2019-09-09] MEDS ORDERED: LEVOFLOXACIN 750MG-D5W PMX 750 MG/150 ML BAG IVPB ONE (00:50)
[2019-09-09] MEDS ORDERED: HYDROmorphone 2 MG/ML 1 ML SYRINGE ONE (00:50)
[2019-09-09] MEDS ORDERED: SODIUM CHLORIDE 0.9% 1,000 ML BAG ONE ×2 (00:50)
[2019-09-09] MEDS ORDERED: HYDROmorphone 1 MG/ML 1 ML SYRINGE ONE (00:50)
[2019-09-09] MEDS ORDERED: PANTOPRAZOLE 40 MG/10 ML VIAL ONE (00:50)
[2019-09-09] MEDS ORDERED: ONDANSETRON 4 MG/2 ML VIAL IVP ONE (02:30)
[2019-09-09] MEDS ORDERED: PANTOPRAZOLE 40 MG/10 ML VIAL IVP ONE (02:30)
[2019-09-09] MEDS ORDERED: LEVOFLOXACIN 750MG-D5W PMX 750 MG in DEXTROSE/WATER 1 150ML.BAG IVPB ONE (02:30)
[2019-09-09] MEDS ORDERED: HYDROmorphone 2 MG/ML 1 ML SYRINGE IV ONE (02:30)
[2019-09-09] MEDS ORDERED: metroNIDAZOLE-NS PMX 500 MG in SALINE 1 100ML.BAG IVPB ONE (02:30)
[2019-09-09] MEDS ORDERED: HYDROmorphone 1 MG/ML 1 ML SYRINGE IVP ONE (02:30)
[2019-09-09 05:17] LABS: Basophils # (A) 0.1 k/uL (0-0.2); Basophils % (A) 0 %; Eosinophils # (A) 0.1 k/uL (0-0.7); Eosinophils % (A) 1 %; HCT 47.8 % (39.0-53.0); HGB 15.8 gm/dL (13.0-17.5); Lymphocytes # (A) 1.3 k/uL (1.0-4.8); Lymphocytes % (A) 9 %; MCH 31.3 pg (25.0-35.0); MCHC 33.1 g/dL (31.0-37.0); MCV 94.6 fL (80.0-100.0); Mean Platelet Volume 7.5; Monocytes % (A) 7 %; Neutrophils % (A) 81 %; Platelet Count 227 k/uL (150-450); RBC 5.05 m/uL (4.30-5.90); RDW 12.7 % (11.5-15.5); WBC 14.8 k/uL (3.8-10.6)
[2019-09-09] MEDS: HYDROmorphone 1 MG/ML 1 ML SYRINGE IVP PRN ×6 (05:27→21:52)
[2019-09-09 05:54] LABS: ALT 37 U/L (4-49); AST 29 U/L (17-59); African American GFR (CKD) >90 (>60 ml/min/1.73 sqM); Albumin 4.3 g/dL (3.5-5.0); Alkaline Phosphatase 67 U/L (38-126); Anion Gap 8 mmol/L; Blood Urea Nitrogen 13 mg/dL (9-20); Calcium 9.5 mg/dL (8.4-10.2); Carbon Dioxide 24 mmol/L (22-30); Chloride 104 mmol/L (98-107); Glucose 120 mg/dL (74-99); Magnesium 2.2 mg/dL (1.6-2.3); Non-African American GFR(CKD) >90 (>60 ml/min/1.73 sqM); Phosphorus 3.5 mg/dL (2.5-4.5); Potassium 4.1 mmol/L (3.5-5.1); Sodium 136 mmol/L (137-145); Total Bilirubin 0.8 mg/dL (0.2-1.3); Total Protein 7.1 g/dL (6.3-8.2)
--- NOTE | 2019-09-09 06:02 | CT ---
EXAM: CT Abdomen and Pelvis With Intravenous Contrast CLINICAL HISTORY: lower abdominal pain. TECHNIQUE: Axial computed tomography images of the abdomen and pelvis with intravenous contrast. CTDI is 19 mGy and DLP is 717 mGy-cm. This CT exam was performed using one or more of the following dose reduction techniques: automated exposure control, adjustment of the mA and/or kV according to patient size, and/or use of iterative reconstruction technique. COMPARISON: 01/19/2019 FINDINGS: Lung bases: No mass. No consolidation. ABDOMEN: Liver: Steatosis. Gallbladder and bile ducts: Unremarkable. Pancreas: Unremarkable. Spleen: Unremarkable. Adrenals: Unremarkable. Kidneys and ureters: No hydronephrosis. Stomach and bowel: No bowel obstruction. Thickened and inflamed sigmoid colon with underlying diverticulosis. Mild hiatal hernia. PELVIS: Appendix: No evidence of appendicitis. Bladder: Unremarkable. Reproductive: Unremarkable. ABDOMEN and PELVIS: Intraperitoneal space: Multiple foci of free air scattered throughout the abdomen and within the umbilical hernia sac. Bones/joints: No acute fractures. Chronic inferior wedging of L1. Partially fused thoracic vertebral bodies. Partially fused sacroiliac joints. Soft tissues: Umbilical hernia containing part of the small bowel without causing obstruction.. Vasculature: No abdominal aortic aneurysm. Lymph nodes: No enlarged lymph nodes. IMPRESSION: 1. Evidence of perforated sigmoid diverticulitis with small foci of free air seen scattered all over the abdomen. No abscess or bowel obstruction. 2. Partially fused thoracic vertebral bodies and sacroiliac joints suggestive of ankylosing spondylitis. 3. Hepatic steatosis.
[2019-09-09] MEDS: SODIUM CHLORIDE 0.9% 1,000 ML IV SCH ×8 (09:29→21:54)
[2019-09-09] MEDS ORDERED: NALOXONE 0.4 MG/ML 1 ML VIAL IV PRN (12:25)
[2019-09-09] MEDS ORDERED: SODIUM CHLORIDE 0.9% 2,000 ML IV ONE (12:26)
--- NOTE | 2019-09-09 13:47 | P.GSHP ---
History of Present Illness H&P Date: 09/09/19 CHIEF COMPLAINT: Perforated diverticulitis. HISTORY OF PRESENT ILLNESS: The patient is a 64-year-old male presents with acute onset left lower quadrant abdominal pain. He has personal history of di verticulosis. As a result moderate to severe pain he presented to emergency room last night. Most documentation unavailable as computer down time occurred during patient's admission earlier this morning. At present, no nausea and vomiting. He does report the pain is moderate however not severe of the left lower quadrant. He has personal history of multiple abdominal surgeries secondary to abdominal adhesions. No reports of high-grade fevers. No chills. CT of the abdomen and pelvis independently reviewed consistent with perforated diverticulitis of the sigmoid colon. Separately, patient has moderate weight gain over 40-50 pounds in less than 2 years. He is passing flatus. Denies any upper abdominal pain. PAST MEDICAL HISTORY: See list. PAST SURGICAL HISTORY: See list. MEDICATIONS: See list. ALLERGIES: See list. SOCIAL HISTORY: See list. FAMILY HISTORY: See list. REVIEW OF ORGAN SYSTEMS: CONSTITUTIONAL: No fevers or chills. EYES: Denies any trouble with vision. No glasses. HEENT: No difficulties with hearing. No nosebleeds. No difficulty swallowing. RESPIRATORY: Denies pneumonia. Denies any troubles with breathing or dyspnea on exertion. CARDIOVASCULAR: Denies any chest pain, palpitations, or recent heart attacks. GASTROINTESTINAL: Has fatty food intolerance. Has change in bowel habits and gas bloat. History of diverticulosis. GENITOURINARY: Denies any blood in urine or increased urinary frequency. NEUROLOGICAL: Denies any numbness or tingling along the distal extremities. No seizure disorders or headaches. MUSCULOSKELETAL: Has back pain, stiffness or joint arthritis. SKIN: No current skin cancer. No rash. PSYCHIATRIC: Denies current depression or suicidal thoughts. ENDOCRINE: Denies current thyroid disorders. Denies any blood sugar glucose intolerance. HEME/LYMPHATIC: Denies any lumps and bumps around the neck. No recent deep ve nous thrombosis. ALLERGY/IMMUNOLOGY: No immunoglobulin therapy. No immune deficiencies. BREAST: Denies current breast lumps, pain or nipple discharge. PHYSICAL EXAM: VITALS: Reviewed CONSTITUTIONAL: Well developed and in no acute distress. EYES: Conjuctivae without sclera icterus. Pupils are equally round and reactive to light. Extraocular movements grossly intact. HEAD, EARS, NOSE, THROAT: Moist buccal mucosa. Head is atraumatic, normocephalic. Hears conversational speech. No nasal drainage. NECK: Supple. No JV distention. No thyroidomegaly. RESPIRATORY: Non-labored respirations and equal bilateral excursions. No gross wheezes. CARDIOVASCULAR: Regular rate and rhythm. Extremities without moderate edema. Palpable 2+ radial pulses. ABDOMEN: Soft. Protuberant. No peritonitis. Tender left lower quadrant.. LYMPH: No neck lymphadenopathy. No axillary lymphadenopathy. MUSCULOSKELETAL: No clubbing cyanosis. SKIN: Warm and well perfused with good skin turgor. NEUROLOGIC: Cranial nerves I through XII grossly intact. Sensation upper and extremities intact. No focal or lateralizing signs. PSYCH: Appropriate affect. Alert and oriented to person, place and time. Displays appropriate insight. CLINCAL LABS: Reviewed. WBC 14,000. IMAGING: Independently reviewed CT of the abdomen and pelvis demonstrating perforated sigmoid diverticulosis with punctate air throughout the abdomen. Also finding of incisional hernia 2 of the umbilicus and upper abdomen bowel containing. RADIOLOGY: Report reviewed consistent ruptured diverticulitis. ASSESSMENT: 1. Ruptured diverticulitis PLAN: 1. At this time, patient denies any diffuse peritonitis. He elected for conservative management and IV antibiotics. He has been started on levofloxacin secondary to penicillin ALLERGY including Flagyl 500 mg 3 times daily. 2. May have ice chips. 3. Medical reconciliation performed with all home medications held. 4. DVT prophylaxis with Lovenox 40 mg daily 5. Incentive spirometer for pulmonary toilet 6. Possibility of surgical intervention with colectomy and ostomy also desc ribed. 7. Inpatient hospitalization over 2 nights described 8. Also will obtain medical management with hospitalist Past Medical History Past Medical History: Cancer, Deep Vein Thrombosis (DVT), GERD/Reflux, Hyperlipidemia, Pneumonia Additional Past Medical History / Comment(s): SBOs, L lower leg DVT, blood clot behind R eye, basal skin cancer with removals, pneumonia with SIRS, sinus problems, low back pain, L foot plantar fascitis, urine flow issues at times, past hiatal hernia-(sx) History of Any Multi-Drug Resistant Organisms: C-DIFF Date of last positivie culture/infection: 2009 MDRO Source:: stool Past Surgical History: Adenoidectomy, Bowel Resection, Cholecystectomy, Hernia Repair, Tonsillectomy Additional Past Surgical History / Comment(s): Exploratory lap with lysis of adhesions, small bowel decompression, yamileth fundiplication, EGD, colonoscopies/benign polypectomies, T&A twice, skin cancer removals, Past Anesthesia/Blood Transfusion Reactions: No Reported Reaction Past Psychological History: No Psychological Hx Reported Additional Psychological History / Comment(s): PT LIVES WITH HIS GILBERTO, 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 Smoking Status: Never smoker Past Alcohol Use History: None Reported Additional Past Alcohol Use History / Comment(s): Patient is a lifelong nonsmoker. He does have medical marijuana but states he hasn't smoked marijuana in a very long time (over a year). He denies any street drug use. He denies any alcohol use. He is currently living at home with his . 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 He has been in the [place] and is unknown if he has asbestos EXPOSURE. . No recent travel. Past Drug Use History: None Reported Additional Drug Use History / Comment(s): Patient stated he occasionally smokes marijuana - Past Family History Mother Family Medical History: Cancer, Diabetes Mellitus Additional Family Medical History / Comment(s): Emphysema, heart problems, COLON CANCER. Father Additional Family Medical History / Comment(s): COLON CA LIVER CA,MULTIPLE MYELOMA, bone cancer Medications and Allergies Home Medications Medication Instructions Recorded Confirmed Type Multivitamins, Thera [Multivitamin 2 tab PO BID 04/04/15 09/09/19 History (formulary)] Ascorbic Acid [Vitamin C] 1,000 mg PO BID 01/19/19 09/09/19 History Docusate [Colace] 100 mg PO BID 01/19/19 09/09/19 History [place]-3 Fatty Acids/Fish Oil [Fish 1 cap PO BID 01/19/19 09/09/19 History Oil 1,000 mg Softgel] Aspirin EC [Ecotrin Low Dose] 81 mg PO DAILY 09/09/19 09/09/19 History Atorvastatin Calcium [Lipitor] 20 mg PO DAILY 09/09/19 09/09/19 History Magnesium Hydroxide [Milk of 400 mg PO DAILY 09/09/19 09/09/19 History Magnesia] Vitamin E 400 unit PO BID 09/09/19 09/09/19 History Allergies Allergy/AdvReac Type Severity Reaction Status Date / Time morphine Allergy Rash/Hives Verified 09/09/19 09:34 Penicillins Allergy Rash/Hives, Verified 09/09/19 09:34 WHEEZING Surgical - Exam Vital Signs Temp Pulse Resp BP Pulse Ox 98.7 F 88 16 118/76 100 09/09/19 04:05 09/09/19 04:05 09/09/19 04:05 09/09/19 04:05 09/09/19 04:05 Results - Labs 09/09/19 00:10 09/09/19 00:10 Abnormal Lab Results - Last 24 Hours (Table) 09/09/19 09/09/19 Range/Units 00:10 00:10 WBC 14.8 H (3.8-10.6) k/uL Neutrophils # 12.0 H (1.3-7.7) k/uL Sodium 136 L (137-145) mmol/L Glucose 120 H (74-99) mg/dL Diabetes panel 09/09/19 Range/Units 00:10 Sodium 136 L (137-145) mmol/L Potassium 4.1 (3.5-5.1) mmol/L Chloride 104 (98-107) mmol/L Carbon Dioxide 24 (22-30) mmol/L BUN 13 (9-20) mg/dL Creatinine 0.67 (0.66-1.25) mg/dL Glucose 120 H (74-99) mg/dL Calcium 9.5 (8.4-10.2) mg/dL AST 29 (17-59) U/L ALT 37 (4-49) U/L Alkaline Phosphatase 67 (38-126) U/L Total Protein 7.1 (6.3-8.2) g/dL Albumin 4.3 (3.5-5.0) g/dL Calcium panel 09/09/19 Range/Units 00:10 Calcium 9.5 (8.4-10.2) mg/dL Phosphorus 3.5 (2.5-4.5) mg/dL Albumin 4.3 (3.5-5.0) g/dL Pituitary panel 09/09/19 Range/Units 00:10 Sodium 136 L (137-145) mmol/L Potassium 4.1 (3.5-5.1) mmol/L Chloride 104 (98-107) mmol/L Carbon Dioxide 24 (22-30) mmol/L BUN 13 (9-20) mg/dL Creatinine 0.67 (0.66-1.25) mg/dL Glucose 120 H (74-99) mg/dL Calcium 9.5 (8.4-10.2) mg/dL Adrenal panel 09/09/19 Range/Units 00:10 Sodium 136 L (137-145) mmol/L Potassium 4.1 (3.5-5.1) mmol/L Chloride 104 (98-107) mmol/L Carbon Dioxide 24 (22-30) mmol/L BUN 13 (9-20) mg/dL Creatinine 0.67 (0.66-1.25) mg/dL Glucose 120 H (74-99) mg/dL Calcium 9.5 (8.4-10.2) mg/dL Total Bilirubin 0.8 (0.2-1.3) mg/dL AST 29 (17-59) U/L ALT 37 (4-49) U/L Alkaline Phosphatase 67 (38-126) U/L Total Protein 7.1 (6.3-8.2) g/dL Albumin 4.3 (3.5-5.0) g/dL Assessment and Plan (1) Perforation of small intestine due to diverticulitis Current Visit: Yes Status: Acute Code(s): K57.00 - DVTRCLI OF SM INT W PERFORATION AND ABSCESS W/O BLEEDING SNOMED Code(s): 0916520256484633 (2) Obesity (BMI 30.0-34.9) Current Visit: Yes Status: Acute Code(s): E66.9 - OBESITY, UNSPECIFIED SNOMED Code(s): 845222717056023 (3) Hypertension Current Visit: Yes Status: Acute Code(s): I10 - ESSENTIAL (PRIMARY) HYPERTENSION SNOMED Code(s): 15715316 (4) Incisional hernia Current Visit: Yes Status: Acute Code(s): K43.2 - INCISIONAL HERNIA WITHOUT OBSTRUCTION OR GANGRENE SNOMED Code(s): 859125819
[2019-09-09] MEDS: metroNIDAZOLE-NS PMX 500 MG in SALINE 1 100ML.BAG IVPB SCH ×3 (15:03→23:34)
--- NOTE | 2019-09-09 16:54 | P.CONS ---
History of Present Illness - Reason for Consult Consult date: 09/09/19 medical management - Chief Complaint Abdominal pain - History of Present Illness Saw De Anda is a 64 year old male patient of Dr Swanson, who presented to [facility] emergency room, with a chief complaint of lower abdominal pain, computed tomography scan of the abdomen and pelvis was done in the emergency room and revealed evidence of perforated sigmoid diverticulitis with small foci of free air seen scattered all over the abdomen. On presentation patient had low-grade fever of 99.7 pulse was 105 white blood count was elevated at 14.8 there was no note from the emergency department as computer system was down. No other abnormality on laboratory and radiology results. Patient was started on IV antibiotic Levaquin and Flagyl, and was admitted to medical floor. Medical consultation was requested for management while hospitalized. Patient has a known history of multiple admissions to [facility] with adhesions and small bowel obstruction, he had surgery for adhesions in November 2018. Past Medical History Past Medical History: Cancer, Deep Vein Thrombosis (DVT), GERD/Reflux, Hyperlipidemia, Pneumonia Additional Past Medical History / Comment(s): SBOs, L lower leg DVT, blood clot behind R eye, basal skin cancer with removals, pneumonia with SIRS, sinus problems, low back pain, L foot plantar fascitis, urine flow issues at times, past hiatal hernia-(sx) History of Any Multi-Drug Resistant Organisms: C-DIFF Year Discovered:: 2009 MDRO Source:: stool Past Surgical History: Adenoidectomy, Bowel Resection, Cholecystectomy, Hernia Repair, Tonsillectomy Additional Past Surgical History / Comment(s): Exploratory lap with lysis of adhesions, small bowel decompression, yamileth fundiplication, EGD, colonoscopies/benign polypectomies, T&A twice, skin cancer removals, Past Anesthesia/Blood Transfusion Reactions: No Reported Reaction Past Psychological History: No Psychological Hx Reported Additional Psychological History / Comment(s): PT LIVES WITH HIS GILBERTO, 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 Smoking Status: Never smoker Past Alcohol Use History: None Reported Additional Past Alcohol Use History / Comment(s): Patient is a lifelong nonsmo ker. He does have medical marijuana but states he hasn't smoked marijuana in a very long time (over a year). He denies any street drug use. He denies any alcohol use. He is currently living at home with his . 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 He has been in the [place] and is unknown if he has asbestos EXPOSURE. . No recent travel. Past Drug Use History: None Reported Additional Drug Use History / Comment(s): Patient stated he occasionally smokes marijuana - Past Family History Mother Family Medical History: Cancer, Diabetes Mellitus Additional Family Medical History / Comment(s): Emphysema, heart problems, COLON CANCER. Father Additional Family Medical History / Comment(s): COLON CA LIVER CA,MULTIPLE MYE SHIRLEY, bone cancer Medications and Allergies Home Medications Medication Instructions Recorded Confirmed Type Multivitamins, Thera [Multivitamin 2 tab PO BID 04/04/15 09/09/19 History (formulary)] Ascorbic Acid [Vitamin C] 1,000 mg PO BID 01/19/19 09/09/19 History Docusate [Colace] 100 mg PO BID 01/19/19 09/09/19 History [place]-3 Fatty Acids/Fish Oil [Fish 1 cap PO BID 01/19/19 09/09/19 History Oil 1,000 mg Softgel] Aspirin EC [Ecotrin Low Dose] 81 mg PO DAILY 09/09/19 09/09/19 History Atorvastatin Calcium [Lipitor] 20 mg PO DAILY 09/09/19 09/09/19 History Magnesium Hydroxide [Milk of 400 mg PO DAILY 09/09/19 09/09/19 History Magnesia] Vitamin E 400 unit PO BID 09/09/19 09/09/19 History Allergies Allergy/AdvReac Type Severity Reaction Status Date / Time morphine Allergy Rash/Hives Verified 09/09/19 09:34 Penicillins Allergy Rash/Hives, Verified 09/09/19 09:34 WHEEZING Physical Exam Vitals: Vital Signs Temp Pulse Resp BP Pulse Ox 09/09/19 07:30 99.7 F H 105 H 16 106/63 98 09/09/19 04:05 98.7 F 88 16 118/76 100 Intake and Output 09/08/19 09/09/19 09/09/19 22:59 06:59 14:59 Other: # Voids 2 Weight 113.398 kg In general patient is alert and oriented in no apparent distress HEENT head normocephalic and atraumatic Neck is supple no JVD no goiter no lymphadenopathy Chest exam reveals a few scattered rhonchi no wheezing Cardiac exam reveals regular heart sounds S1 and S2 no gallops no murmurs Abdomen is soft with mild diffuse tenderness no organomegaly no palpable masses with normal bowel sounds Extremity exam reveals no edema no cyanosis or clubbing Neurological examination reveals no gross focal deficit Results CBC & Chem 7: 09/09/19 00:10 09/09/19 00:10 Labs: Abnormal Lab Results - Last 24 Hours (Table) 09/09/19 09/09/19 Range/Units 00:10 00:10 WBC 14.8 H (3.8-10.6) k/uL Neutrophils # 12.0 H (1.3-7.7) k/uL Sodium 136 L (137-145) mmol/L Glucose 120 H (74-99) mg/dL Assessment and Plan Plan: 1. Acute diverticulitis with bowel perforation. 2. Previous history of DVT 3. Known history of hyperlipidemia 4. Known history of benign prostatic hypertrophy At this time patient is admitted to medical floor, he is started on IV antibiotic Levaquin and Flagyl Recheck labs in a.m. Home medications reviewed For DVT prophylaxis patient on subcu Lovenox, for GI prophylaxis patient on Protonix Continue same management at this time will follow closely
[2019-09-10] MEDS: HYDROmorphone 1 MG/ML 1 ML SYRINGE IVP PRN ×4 (01:08→11:55)
[2019-09-10] MEDS: SODIUM CHLORIDE 0.9% 1,000 ML IV SCH ×3 (04:05→23:49)
[2019-09-10] MEDS: metroNIDAZOLE-NS PMX 500 MG in SALINE 1 100ML.BAG IVPB SCH ×3 (05:18→18:31)
[2019-09-10] MEDS ORDERED: LEVOFLOXACIN 500MG-D5W PMX 500 MG in DEXTROSE/WATER 1 100ML.BAG IVPB SCH (06:00)
[2019-09-10 07:47] LABS: ALT 26 U/L (4-49); AST 26 U/L (17-59); African American GFR (CKD) >90 (>60 ml/min/1.73 sqM); Albumin 3.1 g/dL (3.5-5.0); Alkaline Phosphatase 54 U/L (38-126); Anion Gap 8 mmol/L; Blood Urea Nitrogen 13 mg/dL (9-20); Calcium 8.2 mg/dL (8.4-10.2); Carbon Dioxide 22 mmol/L (22-30); Chloride 108 mmol/L (98-107); Glucose 122 mg/dL (74-99); Non-African American GFR(CKD) >90 (>60 ml/min/1.73 sqM); Phosphorus 1.9 mg/dL (2.5-4.5); Potassium 4.1 mmol/L (3.5-5.1); Sodium 138 mmol/L (137-145); Total Bilirubin 0.5 mg/dL (0.2-1.3); Total Protein 5.9 g/dL (6.3-8.2)
[2019-09-10 07:55] LABS: Basophils % (A) 0 %; Eosinophils % (A) 0 %; HCT 40.5 % (39.0-53.0); HGB 13.5 gm/dL (13.0-17.5); Lymphocytes # (A) 0.9 k/uL (1.0-4.8); Lymphocytes % (A) 7 %; MCH 32.3 pg (25.0-35.0); MCHC 33.4 g/dL (31.0-37.0); MCV 96.6 fL (80.0-100.0); Mean Platelet Volume 7.9; Monocytes # (A) 0.7 k/uL (0-1.0); Monocytes % (A) 5 %; Neutrophils # (A) 11.3 k/uL (1.3-7.7); Neutrophils % (A) 86 %; Platelet Count 214 k/uL (150-450); RDW 13.1 % (11.5-15.5); WBC 13.2 k/uL (3.8-10.6)
[2019-09-10] MEDS ORDERED: Phosphorus Replacement Protoco 1 EACH MISC MISCELLANE PRN (07:57)
[2019-09-10] MEDS: ONDANSETRON 4 MG/2 ML VIAL IVP PRN (07:58)
[2019-09-10] MEDS: ENOXAPARIN 40 MG/0.4 ML SYRINGE SQ SCH (07:58)
[2019-09-10] MEDS: PANTOPRAZOLE 40 MG/10 ML VIAL IV SCH (07:58)
[2019-09-10] MEDS ORDERED: DEXAMETHASONE SOD PHOSPHATE 4 MG/ML 1 ML VIAL IV PRN (10:15)
[2019-09-10] MEDS ORDERED: diphenhydrAMINE 50 MG/ML 1 ML VIAL IVP PRN (10:15)
--- NOTE | 2019-09-10 10:15 | P.PN ---
Subjective Progress Note Date: 09/10/19 CHIEF COMPLAINT: Perforated diverticulitis. HISTORY OF PRESENT ILLNESS: The patient is a 64-year-old male with known history of diverticulosis reports acute onset abdominal pain yesterday. He was admitted for perforated diverticulitis. Reports eating popcorn the day prior to admission. He states he has been passing flatus and having bowel movements prior to admission. In fact, today he reports passing moderate amount of flatus. He reports lower abdominal soreness is improving. "I don't want odell rgery." He denies any nausea and vomiting. Upon further discussion regarding his penicillin ALLERGY, patient reports reaction was over 64 years ago where he barely remembers what his reaction was. He is willing to try penicillin type antibiotics. ROS: Low-grade fever 99.7. No chills. No nausea or vomiting. No productive sputum. PHYSICAL EXAM: VITALS: Reviewed CONSTITUTIONAL: Well developed and in no acute distress. EYES: Conjuctivae without sclera icterus. Pupils are equally round and reactive to light. Extraocular movements grossly intact. HEAD, EARS, NOSE, THROAT: Moist buccal mucosa. Head is atraumatic, normocephalic. Hears conversational speech. No nasal drainage. NECK: Supple. No JV distention. No thyroidomegaly. RESPIRATORY: Non-labored respirations and equal bilateral excursions. No gross wheezes. CARDIOVASCULAR: Regular rate and rhythm. Extremities without moderate edema. Palpable 2+ radial pulses. ABDOMEN: Protuberant. No peritonitis. Tender left lower quadrant improved. MUSCULOSKELETAL: No clubbing cyanosis. SKIN: Warm and well perfused with good skin turgor. NEUROLOGIC: Cranial nerves II through XII grossly intact. Sensation upper and extremities intact. No focal or lateralizing signs. PSYCH: Appropriate affect. Alert and oriented to person, place and time. Displays appropriate insight. CLINCAL LABS: Reviewed. WBC improved down from 14,800 to 13,000. His phosphate is low. Coronavirus rapid test pending ASSESSMENT: 1. Ruptured diverticulitis 2. Low phosphate PLAN: 1. Initially he was started on levofloxacin and Flagyl. He is willing to try penicillin drugs as he is unsure of his overall reaction. Trial of Zosyn discussed. Consultation to infectious disease also made. 2. I did review surgical intervention with exploratory laparotomy and colostomy creation should his clinical course decline. At this time, patient does not want surgery. 3. Nothing by mouth status adjusted to ice chips and popsicles. 4. Schedule anti-inflammatory and IV Tylenol prescribed 5. Correction of low phosphate protocol initiated 6. Inpatient hospitalization at minimum 3 days reviewed. 7. Overall care plan reviewed with patient which he agreed. Objective - Vital Signs Vital signs: Vital Signs Temp 99 F 09/10/19 07:03 Pulse 93 09/10/19 07:03 Resp 17 09/10/19 07:03 BP 119/72 09/10/19 07:03 Pulse Ox 92 L 09/10/19 07:03 Intake & Output 09/09/19 09/10/19 09/10/19 18:59 06:59 18:59 Other: Voiding Method Toilet Toilet # Voids 2 - Labs CBC & Chem 7: 09/10/19 06:36 09/10/19 06:36 Labs: Abnormal Lab Results - Last 24 Hours (Table) 09/10/19 09/10/19 Range/Units 06:36 06:36 WBC 13.2 H (3.8-10.6) k/uL RBC 4.20 L (4.30-5.90) m/uL Neutrophils # 11.3 H (1.3-7.7) k/uL Lymphocytes # 0.9 L (1.0-4.8) k/uL Chloride 108 H (98-107) mmol/L Creatinine 0.64 L (0.66-1.25) mg/dL Glucose 122 H (74-99) mg/dL Calcium 8.2 L (8.4-10.2) mg/dL Phosphorus 1.9 L (2.5-4.5) mg/dL Total Protein 5.9 L (6.3-8.2) g/dL Albumin 3.1 L (3.5-5.0) g/dL Assessment and Plan (1) Perforation of small intestine due to diverticulitis Current Visit: Yes Status: Acute Code(s): K57.00 - DVTRCLI OF SM INT W PERFORATION AND ABSCESS W/O BLEEDING SNOMED Code(s): 5193410665300875 (2) Obesity (BMI 30.0-34.9) Current Visit: Yes Status: Acute Code(s): E66.9 - OBESITY, UNSPECIFIED SNOMED Code(s): 533511693331285 (3) Hypertension Current Visit: Yes Status: Acute Code(s): I10 - ESSENTIAL (PRIMARY) HYPERTENSION SNOMED Code(s): 56258035 (4) Incisional hernia Current Visit: Yes Status: Acute Code(s): K43.2 - INCISIONAL HERNIA WITHOUT OBSTRUCTION OR GANGRENE SNOMED Code(s): 827068092 (5) Low blood phosphate Current Visit: Yes Status: Acute Code(s): E83.39 - OTHER DISORDERS OF PHOSPHORUS METABOLISM SNOMED Code(s): 1541207
[2019-09-10] MEDS: KETOROLAC 30 MG/ML 1 ML VIAL IVP SCH ×3 (10:38→18:30)
[2019-09-10] MEDS: ACETAMINOPHEN IV (For NPO) 1,000 MG in EMPTY BAG 1 BAG IVPB SCH ×3 (10:39→17:54)
[2019-09-10] MEDS: SODIUM PHOSPHATE 10 MMOL in SODIUM CHLORIDE 0.9% 250 ML IVPB SCH ×3 (11:47→19:14)
[2019-09-10] MEDS: PIPERACILLIN-TAZOBACTAM 3.375 GM in SODIUM CHLORIDE 0.9% 100 ML IVPB SCH ×3 (12:50→21:59)
--- NOTE | 2019-09-10 15:32 | P.PN ---
Progress Note - Text Progress Note Date: 09/10/19 Patient reevaluated this evening. He had been started on Zosyn. He denies any adverse reactions to Zosyn. No reports of rash, itch, anaphylaxis. He also reports moderate improvement of his abdominal pain from this morning. Clinically he has marked improvement in less than 24 hours. May start diet in 24 hours. We'll discontinue penicillin as an ALLERGY from his records.
--- NOTE | 2019-09-10 16:32 | P.PN ---
Subjective Progress Note Date: 09/10/19 Saw De Anda is a 64 year old male patient of Dr Swanson, who presented to [facility] emergency room, with a chief complaint of lower abdominal pain, computed tomography scan of the abdomen and pelvis was done in the emergency room and revealed evidence of perforated sigmoid diverticulitis with small foci of free air seen scattered all over the abdomen. On presentation patient had low-grade fever of 99.7 pulse was 105 white blood count was elevated at 14.8 there was no note from the emergency department as computer system was down. No other abnormality on laboratory and radiology results. Patient was started on IV antibiotic Levaquin and Flagyl, and was admitted to medical floor. Medical consultation was requested for management while hospitalized. Patient has a known history of multiple admissions to [facility] with adhesions and small bowel obstruction, he had surgery for adhesions in November 2018. On 09/10/2019 patient was seen and examined on the medical floor he is alert and oriented 3 in no apparent distress he is still complaining of abdominal pain otherwise he denies any complaints there is no fever or chills no headache or dizziness no chest pain no shortness of breath no cough no nausea or vomiting no diarrhea he is passing some gas no blood in the stools, no burning was urination no frequency or urgency and no hematuria, patient is nothing by mouth except for ice chips. Objective - Vital Signs Vital signs: Vital Signs Temp 98 F 09/10/19 14:48 Pulse 75 09/10/19 14:48 Resp 16 09/10/19 14:48 BP 107/63 09/10/19 14:48 Pulse Ox 95 09/10/19 14:48 Intake & Output 09/09/19 09/10/19 09/10/19 18:59 06:59 18:59 Other: Voiding Method Toilet Toilet # Voids 2 - Exam In general patient is alert and oriented in no apparent distress HEENT head normocephalic and atraumatic Neck is supple no JVD no goiter no lymphadenopathy Chest exam reveals a few scattered rhonchi no wheezing Cardiac exam reveals regular heart sounds S1 and S2 no gallops no murmurs Abdomen is soft with mild diffuse tenderness no organomegaly no palpable masses with normal bowel sounds Extremity exam reveals no edema no cyanosis or clubbing Neurological examination reveals no gross focal deficit - Labs CBC & Chem 7: 09/10/19 06:36 09/10/19 06:36 Labs: Abnormal Lab Results - Last 24 Hours (Table) 09/10/19 09/10/19 Range/Units 06:36 06:36 WBC 13.2 H (3.8-10.6) k/uL RBC 4.20 L (4.30-5.90) m/uL Neutrophils # 11.3 H (1.3-7.7) k/uL Lymphocytes # 0.9 L (1.0-4.8) k/uL Chloride 108 H (98-107) mmol/L Creatinine 0.64 L (0.66-1.25) mg/dL Glucose 122 H (74-99) mg/dL Calcium 8.2 L (8.4-10.2) mg/dL Phosphorus 1.9 L (2.5-4.5) mg/dL Total Protein 5.9 L (6.3-8.2) g/dL Albumin 3.1 L (3.5-5.0) g/dL Assessment and Plan Plan: 1. Acute diverticulitis with bowel perforation. 2. Previous history of DVT 3. Known history of hyperlipidemia 4. Known history of benign prostatic hypertrophy At this time patient is admitted to medical floor, he is started on IV antibiotic Levaquin and Flagyl For DVT prophylaxis patient on subcu Lovenox, for GI prophylaxis patient on Protonix White blood count is slightly better down from 14.8-13.2 Phosphorus is low at 1.9 been corrected per protocol Recheck labs in a.m. would follow closely
--- NOTE | 2019-09-10 23:10 | P.CONS ---
History of Present Illness - Reason for Consult Consult date: 09/10/19 diverticulitis and PCN allergy Requesting physician: Trinh Lynn - Chief Complaint abd pain x 1 day - History of Present Illness Patient is a 64-year male presenting to the ER with chief complaints of lower abdominal pain that apparently started the night before he presented to the hospital patient pain describing to be sharp at times colicky almost 10 out of 10 intensity relieved by the time he presented to hospital patient did have associated nausea but no vomiting and denies any diarrhea or constipation with the symptom had the patient was evaluated by the ER physician on arrival to the ER patient did have low-grade fever of 99.7 he did have a white count of 14.8 kim PCR was negative patient did have a CT of abdominal pelvis which did shows evidence of sigmoid diverticulitis with perforation with small foci of free air no abscess or bowel obstruction patient was initially started on Levaquin and Flagyl because of his penicillin allergy which he described when he was told he did have a tonsillectomy and he has to be on the penicillin for a long time but did not mention any specific reaction that he has patient also received a dose of Zosyn this morning and did well infectious was consulted for further management with antibiotic therapy. Review of Systems Positive point has been mentioned in HPI rest of the systems are negative Past Medical History Past Medical History: Cancer, Deep Vein Thrombosis (DVT), GERD/Reflux, Hyperlipidemia, Pneumonia Additional Past Medical History / Comment(s): SBOs, L lower leg DVT, blood clot behind R eye, basal skin cancer with removals, pneumonia with SIRS, sinus problems, low back pain, L foot plantar fascitis, urine flow issues at times, past hiatal hernia-(sx) History of Any Multi-Drug Resistant Organisms: C-DIFF Year Discovered:: 2009 MDRO Source:: stool Past Surgical History: Adenoidectomy, Bowel Resection, Cholecystectomy, Hernia Repair, Tonsillectomy Additional Past Surgical History / Comment(s): Exploratory lap with lysis of adhesions, small bowel decompression, yamileth fundiplication, EGD, colonoscopies/benign polypectomies, T&A twice, skin cancer removals, Past Anesthesia/Blood Transfusion Reactions: No Reported Reaction Past Psychological History: No Psychological Hx Reported Additional Psychological History / Comment(s): PT LIVES WITH HIS GILBERTO, 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 Smoking Status: Never smoker Past Alcohol Use History: None Reported Additional Past Alcohol Use History / Comment(s): Patient is a lifelong no nsmoker. He does have medical marijuana but states he hasn't smoked marijuana in a very long time (over a year). He denies any street drug use. He denies any alcohol use. He is currently living at home with his . 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 He has been in the [place] and is unknown if he has asbestos EXPOSURE. . No recent travel. Past Drug Use History: None Reported Additional Drug Use History / Comment(s): Patient stated he occasionally smokes marijuana - Past Family History Mother Family Medical History: Cancer, Diabetes Mellitus Additional Family Medical History / Comment(s): Emphysema, heart problems, COLON CANCER. Father Additional Family Medical History / Comment(s): COLON CA LIVER CA,MULTIPLE MYELOMA, bone cancer Medications and Allergies Home Medications Medication Instructions Recorded Confirmed Type Multivitamins, Thera [Multivitamin 2 tab PO BID 04/04/15 09/09/19 History (formulary)] Ascorbic Acid [Vitamin C] 1,000 mg PO BID 01/19/19 09/09/19 History Docusate [Colace] 100 mg PO BID 01/19/19 09/09/19 History [place]-3 Fatty Acids/Fish Oil [Fish 1 cap PO BID 01/19/19 09/09/19 History Oil 1,000 mg Softgel] Aspirin EC [Ecotrin Low Dose] 81 mg PO DAILY 09/09/19 09/09/19 History Atorvastatin Calcium [Lipitor] 20 mg PO DAILY 09/09/19 09/09/19 History Magnesium Hydroxide [Milk of 400 mg PO DAILY 09/09/19 09/09/19 History Magnesia] Vitamin E 400 unit PO BID 09/09/19 09/09/19 History Allergies Allergy/AdvReac Type Severity Reaction Status Date / Time morphine Allergy Rash/Hives Verified 09/09/19 09:34 Physical Exam Vitals: Vital Signs Temp Pulse Resp BP Pulse Ox 09/10/19 14:48 98 F 75 16 107/63 95 09/10/19 07:03 99 F 93 17 119/72 92 L 09/10/19 02:38 98.4 F 98 18 133/74 90 L Intake and Output 09/10/19 09/10/19 09/11/19 14:59 22:59 06:59 Output Total 140 Balance -140 Output: Urine 140 Other: Voiding Method Toilet Toilet GENERAL DESCRIPTION: Elderly male lying in bed, no distress. No tachypnea or accessory muscle of respiration use. HEENT: Shows Pallor , no scleral icterus. Oral mucous membrane is dry. NECK: Trachea central, no thyromegaly. LUNGS: Unlabored breathing. Clear to auscultation anteriorly. No wheeze or crackle. HEART: S1, S2, regular rate and rhythm. ABDOMEN: Soft, lower abdominal tenderness ,no guarding or rigidity EXTREMITIES: No edema of feet. SKIN: No rash, no masses palpable. NEUROLOGICAL: The patient is awake, alert, oriented x3, mood and affect normal. Results CBC & Chem 7: 09/10/19 06:36 09/10/19 06:36 Labs: Abnormal Lab Results - Last 24 Hours (Table) 09/10/19 09/10/19 Range/Units 06:36 06:36 WBC 13.2 H (3.8-10.6) k/uL RBC 4.20 L (4.30-5.90) m/uL Neutrophils # 11.3 H (1.3-7.7) k/uL Lymphocytes # 0.9 L (1.0-4.8) k/uL Chloride 108 H (98-107) mmol/L Creatinine 0.64 L (0.66-1.25) mg/dL Glucose 122 H (74-99) mg/dL Calcium 8.2 L (8.4-10.2) mg/dL Phosphorus 1.9 L (2.5-4.5) mg/dL Total Protein 5.9 L (6.3-8.2) g/dL Albumin 3.1 L (3.5-5.0) g/dL Assessment and Plan Assessment: 1-patient presented hospital with abdominal pain of 1 day duration and this patient who did have a lower abdominal tenderness did have elevated white count CT did show evidence of perforated sigmoid diverticulitis but no drainable abscess will need to cover for enteric gram-negative both aerobes and anaerobes in this patient who has not been antibiotic in the recent past could be sensitive pathogen such as E. coli or related diony 2-patient with a reported history of penicillin allergy which does not sound like a true penicillin allergy and the patient tolerated a dose of Zosyn make it to be less likely he is allergic to penicillin (1) Perforation of sigmoid colon due to diverticulitis Current Visit: Yes Status: Acute Code(s): K57.20 - DVTRCLI OF LG INT W PERFORATION AND ABSCESS W/O BLEEDING SNOMED Code(s): 9020575701308510 (2) Penicillin allergy Current Visit: Yes Status: Acute Code(s): Z88.0 - ALLERGY STATUS TO PENICILLIN SNOMED Code(s): 32829226 Plan: 1-discontinue Levaquin Flagyl 2 -Zosyn 3.375 g every 8 hours 3-IV fluid and bowel rest We will follow on clinical condition and cultures to further adjust medication if needed Thank you for this consultation we will follow the patient along with you Time with Patient: Greater than 30
[2019-09-11] MEDS: ONDANSETRON 4 MG/2 ML VIAL IVP PRN ×3 (00:30→13:46)
[2019-09-11] MEDS: HYDROmorphone 1 MG/ML 1 ML SYRINGE IVP PRN ×5 (00:30→23:08)
[2019-09-11] MEDS: ACETAMINOPHEN IV (For NPO) 1,000 MG in EMPTY BAG 1 BAG IVPB SCH (00:31)
[2019-09-11] MEDS: KETOROLAC 30 MG/ML 1 ML VIAL IVP SCH ×5 (01:16→23:00)
[2019-09-11] MEDS: SODIUM CHLORIDE 0.9% 1,000 ML IV SCH ×3 (03:26→17:56)
[2019-09-11] MEDS: PIPERACILLIN-TAZOBACTAM 3.375 GM in SODIUM CHLORIDE 0.9% 100 ML IVPB SCH ×3 (05:03→21:23)
[2019-09-11] MEDS: PANTOPRAZOLE 40 MG/10 ML VIAL IV SCH (09:43)
[2019-09-11] MEDS: ENOXAPARIN 40 MG/0.4 ML SYRINGE SQ SCH (09:43)
[2019-09-11 09:52] LABS: African American GFR (CKD) >90 (>60 ml/min/1.73 sqM); Anion Gap 7 mmol/L; Blood Urea Nitrogen 16 mg/dL (9-20); Calcium 7.8 mg/dL (8.4-10.2); Carbon Dioxide 21 mmol/L (22-30); Chloride 111 mmol/L (98-107); Glucose 93 mg/dL (74-99); Non-African American GFR(CKD) >90 (>60 ml/min/1.73 sqM); Sodium 139 mmol/L (137-145)
[2019-09-11 09:53] LABS: Potassium 4.2 mmol/L (3.5-5.1)
[2019-09-11 10:00] LABS: Basophils % (A) 0 %; Eosinophils # (A) 0.3 k/uL (0-0.7); Eosinophils % (A) 3 %; HCT 38.6 % (39.0-53.0); HGB 12.7 gm/dL (13.0-17.5); Lymphocytes # (A) 1.1 k/uL (1.0-4.8); Lymphocytes % (A) 9 %; MCH 31.6 pg (25.0-35.0); MCHC 32.9 g/dL (31.0-37.0); MCV 96.2 fL (80.0-100.0); Mean Platelet Volume 8.9; Monocytes # (A) 0.7 k/uL (0-1.0); Monocytes % (A) 7 %; Neutrophils # (A) 8.6 k/uL (1.3-7.7); Neutrophils % (A) 78 %; Platelet Count 167 k/uL (150-450); RBC 4.02 m/uL (4.30-5.90); WBC 11.1 k/uL (3.8-10.6)
--- NOTE | 2019-09-11 12:31 | P.PN ---
Progress Note - Text Progress Note Date: 09/11/19 The patient is resting in his bed. He states his pain is a 7 out of 10. On exam vital signs appear stable. Abdomen soft there is moderate left-sided tenderness. History of diverticulitis with microperforation. Patient continue to receive IV antibiotics. We will hold off on starting his diet until his pain is improved.
[2019-09-11] MEDS: ACETAMINOPHEN TAB 500 MG TAB PO PRN ×2 (13:38→21:17)
--- NOTE | 2019-09-11 13:48 | P.PN ---
Subjective Progress Note Date: 09/11/19 Saw De Anda is a 64 year old male patient of Dr Swanson, who presented to [facility] emergency room, with a chief complaint of lower abdominal pain, computed tomography scan of the abdomen and pelvis was done in the emergency room and revealed evidence of perforated sigmoid diverticulitis with small foci of free air seen scattered all over the abdomen. On presentation patient had low-grade fever of 99.7 pulse was 105 white blood count was elevated at 14.8 there was no note from the emergency department as computer system was down. No other abnormality on laboratory and radiology results. Patient was started on IV antibiotic Levaquin and Flagyl, and was admitted to medical floor. Medical consultation was requested for management while hospitalized. Patient has a known history of multiple admissions to [facility] with adhesions and small bowel obstruction, he had surgery for adhesions in November 2018. On 09/10/2019 patient was seen and examined on the medical floor he is alert and oriented 3 in no apparent distress he is still complaining of abdominal pain otherwise he denies any complaints there is no fever or chills no headache or dizziness no chest pain no shortness of breath no cough no nausea or vomiting no diarrhea he is passing some gas no blood in the stools, no burning was urination no frequency or urgency and no hematuria, patient is nothing by mouth except for ice chips. On 09/11/2019 patient was seen and examined on the medical floor, he is alert and oriented 3 in, he is still complaining of abdominal pain, there is no fever or chills no headache or dizziness no chest pain no shortness of breath no cough no nausea or vomiting no diarrhea he is passing some gas no blood in the stools, no burning was urination no frequency or urgency and no hematuria, patient is nothing by mouth except for ice chips. Objective - Vital Signs Vital signs: Vital Signs Temp 98.2 F 09/11/19 09:18 Pulse 79 09/11/19 09:18 Resp 16 09/11/19 09:18 BP 119/74 09/11/19 09:18 Pulse Ox 93 L 09/11/19 09:18 Intake & Output 09/10/19 09/11/19 09/11/19 18:59 06:59 18:59 Intake Total 20 Output Total 540 500 Balance -520 -500 Intake: Oral 20 Output: Urine 540 500 Other: Voiding Method Toilet - Exam In general patient is alert and oriented in no apparent distress HEENT head normocephalic and atraumatic Neck is supple no JVD no goiter no lymphadenopathy Chest exam reveals a few scattered rhonchi no wheezing Cardiac exam reveals regular heart sounds S1 and S2 no gallops no murmurs Abdomen is soft with mild diffuse tenderness no organomegaly no palpable masses with normal bowel sounds Extremity exam reveals no edema no cyanosis or clubbing Neurological examination reveals no gross focal deficit - Labs CBC & Chem 7: 09/11/19 08:42 09/11/19 08:42 Labs: Abnormal Lab Results - Last 24 Hours (Table) 09/11/19 09/11/19 Range/Units 08:42 08:42 WBC 11.1 H (3.8-10.6) k/uL RBC 4.02 L (4.30-5.90) m/uL Hgb 12.7 L (13.0-17.5) gm/dL Hct 38.6 L (39.0-53.0) % Neutrophils # 8.6 H (1.3-7.7) k/uL Chloride 111 H (98-107) mmol/L Carbon Dioxide 21 L (22-30) mmol/L Creatinine 0.59 L (0.66-1.25) mg/dL Calcium 7.8 L (8.4-10.2) mg/dL Assessment and Plan Plan: 1. Acute diverticulitis with bowel perforation. 2. Previous history of DVT 3. Known history of hyperlipidemia 4. Known history of benign prostatic hypertrophy At this time patient is admitted to medical floor, he is started on IV antibiotic Levaquin and Flagyl For DVT prophylaxis patient on subcu Lovenox, for GI prophylaxis patient on Protonix White blood count is slightly better down from 14.8-13.2 Phosphorus is low at 1.9 been corrected per protocol Recheck labs in a.m. would follow closely
--- NOTE | 2019-09-11 17:32 | PN ---
PROGRESS NOTE DATE OF SERVICE: 09/11/2019 REASON FOR FOLLOW UP: Acute sigmoid diverticulitis with microperforation. INTERVAL HISTORY: The patient is currently afebrile. He is feeling not as great today but did mention the pain has decreased intensity compared to yesterday. Nausea but no vomiting. No chest pain, shortness of breath or cough and no diarrhea. PHYSICAL EXAMINATION: Blood pressure 119/74 with a pulse of 79, temperature 98.2. He is 93% on room air. General description: The patient is an elderly male lying in bed in no distress. Respiratory system: Unlabored breathing. Clear to auscultation anteriorly. Heart S1, S2. Regular rate and rhythm. ABDOMEN: Soft. No distention. LABS: Hemoglobin is 12.4, white count 11.1, creatinine 0.59. DIAGNOSTIC IMPRESSION AND PLAN: Patient with acute sigmoid diverticulitis with microperforation PENICILLIN ALLERGY, which was not sure. He has been tolerating his Zosyn, to continue and we will monitor clinical course closely. MMODL / IJN: [id number] /
[2019-09-12] MEDS: SODIUM CHLORIDE 0.9% 1,000 ML IV SCH ×4 (04:54→23:18)
[2019-09-12] MEDS: PIPERACILLIN-TAZOBACTAM 3.375 GM in SODIUM CHLORIDE 0.9% 100 ML IVPB SCH ×3 (05:26→21:22)
[2019-09-12] MEDS: KETOROLAC 30 MG/ML 1 ML VIAL IVP SCH ×4 (05:27→23:15)
[2019-09-12] MEDS: PANTOPRAZOLE 40 MG/10 ML VIAL IV SCH (07:56)
[2019-09-12] MEDS: ENOXAPARIN 40 MG/0.4 ML SYRINGE SQ SCH (07:56)
[2019-09-12 08:46] LABS: Basophils % (A) 0 %; Eosinophils # (A) 0.3 k/uL (0-0.7); Eosinophils % (A) 4 %; HCT 37.7 % (39.0-53.0); HGB 12.4 gm/dL (13.0-17.5); Lymphocytes # (A) 1.1 k/uL (1.0-4.8); Lymphocytes % (A) 14 %; MCH 31.7 pg (25.0-35.0); MCHC 32.9 g/dL (31.0-37.0); MCV 96.4 fL (80.0-100.0); Mean Platelet Volume 7.9; Monocytes # (A) 0.5 k/uL (0-1.0); Monocytes % (A) 7 %; Neutrophils # (A) 5.4 k/uL (1.3-7.7); Neutrophils % (A) 71 %; Platelet Count 263 k/uL (150-450); RBC 3.91 m/uL (4.30-5.90); RDW 13.3 % (11.5-15.5); WBC 7.6 k/uL (3.8-10.6)
[2019-09-12 08:50] LABS: ALT 25 U/L (4-49); AST 29 U/L (17-59); African American GFR (CKD) >90 (>60 ml/min/1.73 sqM); Albumin 2.6 g/dL (3.5-5.0); Alkaline Phosphatase 69 U/L (38-126); Anion Gap 7 mmol/L; Blood Urea Nitrogen 15 mg/dL (9-20); Calcium 7.9 mg/dL (8.4-10.2); Carbon Dioxide 24 mmol/L (22-30); Chloride 109 mmol/L (98-107); Glucose 85 mg/dL (74-99); Non-African American GFR(CKD) >90 (>60 ml/min/1.73 sqM); Phosphorus 1.9 mg/dL (2.5-4.5); Potassium 3.6 mmol/L (3.5-5.1); Sodium 140 mmol/L (137-145); Total Bilirubin 0.5 mg/dL (0.2-1.3); Total Protein 5.2 g/dL (6.3-8.2)
--- NOTE | 2019-09-12 12:41 | P.PN ---
Subjective Progress Note Date: 09/12/19 Saw De Anda is a 64 year old male patient of Dr Swanson, who presented to [facility] emergency room, with a chief complaint of lower abdominal pain, computed tomography scan of the abdomen and pelvis was done in the emergency room and revealed evidence of perforated sigmoid diverticulitis with small foci of free air seen scattered all over the abdomen. On presentation patient had low-grade fever of 99.7 pulse was 105 white blood count was elevated at 14.8 there was no note from the emergency department as computer system was down. No other abnormality on laboratory and radiology results. Patient was started on IV antibiotic Levaquin and Flagyl, and was admitted to medical floor. Medical consultation was requested for management while hospitalized. Patient has a known history of multiple admissions to [facility] with adhesions and small bowel obstruction, he had surgery for adhesions in November 2018. On 09/10/2019 patient was seen and examined on the medical floor he is alert and oriented 3 in no apparent distress he is still complaining of abdominal pain otherwise he denies any complaints there is no fever or chills no headache or dizziness no chest pain no shortness of breath no cough no nausea or vomiting no diarrhea he is passing some gas no blood in the stools, no burning was urination no frequency or urgency and no hematuria, patient is nothing by mouth except for ice chips. On 09/11/2019 patient was seen and examined on the medical floor, he is alert and oriented 3 in, he is still complaining of abdominal pain, there is no fever or chills no headache or dizziness no chest pain no shortness of breath no cough no nausea or vomiting no diarrhea he is passing some gas no blood in the stools, no burning was urination no frequency or urgency and no hematuria, patient is nothing by mouth except for ice chips. On 09/12/2019 patient was seen and examined on the medical floor, he is alert and oriented 3 in no apparent distress, there is no fever or chills no headache or dizziness no chest pain no shortness of breath no cough no nausea or vomitin g, abdominal pain is improving, there is no diarrhea, patient is passing some gas he had no bowel movements, there is no burning with urination no frequency or urgency and no hematuria. Objective - Vital Signs Vital signs: Vital Signs Temp 98.7 F 09/12/19 07:00 Pulse 74 09/12/19 08:00 Resp 18 09/12/19 08:00 BP 119/74 09/12/19 07:00 Pulse Ox 94 L 09/12/19 07:00 Intake & Output 09/11/19 09/12/19 09/12/19 18:59 06:59 18:59 Output Total 1200 425 Balance -1200 -425 Output: Urine 1200 425 Other: Voiding Method Toilet Toilet # Voids 0 - Exam In general patient is alert and oriented in no apparent distress HEENT head normocephalic and atraumatic Neck is supple no JVD no goiter no lymphadenopathy Chest exam reveals a few scattered rhonchi no wheezing Cardiac exam reveals regular heart sounds S1 and S2 no gallops no murmurs Abdomen is soft with mild diffuse tenderness no organomegaly no palpable masses with normal bowel sounds Extremity exam reveals no edema no cyanosis or clubbing Neurological examination reveals no gross focal deficit - Labs CBC & Chem 7: 09/12/19 07:38 09/12/19 07:38 Labs: Abnormal Lab Results - Last 24 Hours (Table) 09/12/19 09/12/19 Range/Units 07:38 07:38 RBC 3.91 L (4.30-5.90) m/uL Hgb 12.4 L (13.0-17.5) gm/dL Hct 37.7 L (39.0-53.0) % Chloride 109 H (98-107) mmol/L Creatinine 0.59 L (0.66-1.25) mg/dL Calcium 7.9 L (8.4-10.2) mg/dL Phosphorus 1.9 L (2.5-4.5) mg/dL Total Protein 5.2 L (6.3-8.2) g/dL Albumin 2.6 L (3.5-5.0) g/dL Assessment and Plan Plan: 1. Acute diverticulitis with bowel perforation. 2. Previous history of DVT 3. Known history of hyperlipidemia 4. Known history of benign prostatic hypertrophy At this time patient is admitted to medical floor, he is started on IV antibiotic Levaquin and Flagyl For DVT prophylaxis patient on subcu Lovenox, for GI prophylaxis patient on Protonix White blood count is slightly better down from 14.8-13.2 Phosphorus is low at 1.9 been corrected per protocol Recheck labs in a.m. would follow closely
[2019-09-12] MEDS: ACETAMINOPHEN TAB 500 MG TAB PO PRN (19:51)
[2019-09-12] MEDS: HYDROmorphone 1 MG/ML 1 ML SYRINGE IVP PRN (21:29)
--- NOTE | 2019-09-13 00:14 | PN ---
PROGRESS NOTE DATE OF SERVICE: 09/12/2019 REASON FOR FOLLOWUP: Acute sigmoid diverticulitis with perforation. INTERVAL HISTORY: The patient is currently afebrile. He is breathing comfortably. The patient's pain and discomfort to the left lower abdominal area has improved. Denies having any chest pain or shortness of breath or cough. PHYSICAL EXAMINATION: Blood pressure 146/87 with a pulse of 71, temperature 99.2. He is 98% on room air. General description is an elderly male lying in bed in no distress. RESPIRATORY SYSTEM: Unlabored breathing, clear to auscultation anteriorly. HEART: S1, S2. Regular rate and rhythm. ABDOMEN: Soft, no tenderness. LABS: Hemoglobin is 12.4, white count 7.6, BUN of 15, creatinine 0.59. DIAGNOSTIC IMPRESSION AND PLAN: Patient with acute sigmoid diverticulitis with microperforation. No evidence of any abscess. The patient is currently covered with Zosyn to continue and monitor clinical course closely. MMODL / IJN: [id number] /
[2019-09-13] MEDS: KETOROLAC 30 MG/ML 1 ML VIAL IVP SCH ×2 (05:32→11:45)
[2019-09-13] MEDS: PIPERACILLIN-TAZOBACTAM 3.375 GM in SODIUM CHLORIDE 0.9% 100 ML IVPB SCH ×2 (05:33→11:46)
[2019-09-13] MEDS: ACETAMINOPHEN TAB 500 MG TAB PO PRN (05:38)
[2019-09-13] MEDS: ENOXAPARIN 40 MG/0.4 ML SYRINGE SQ SCH (07:30)
[2019-09-13] MEDS: PANTOPRAZOLE 40 MG/10 ML VIAL IV SCH (07:30)
[2019-09-13] MEDS: SODIUM CHLORIDE 0.9% 1,000 ML IV SCH (07:31)
[2019-09-13 07:41] VITALS: BP 133/78; PULSE 74; RESP 17; TEMP 98.2
[2019-09-13 07:53] LABS: ALT 30 U/L (4-49); AST 36 U/L (17-59); African American GFR (CKD) >90 (>60 ml/min/1.73 sqM); Albumin 2.8 g/dL (3.5-5.0); Alkaline Phosphatase 73 U/L (38-126); Anion Gap 5 mmol/L; Blood Urea Nitrogen 12 mg/dL (9-20); Calcium 8.5 mg/dL (8.4-10.2); Carbon Dioxide 24 mmol/L (22-30); Chloride 111 mmol/L (98-107); Glucose 102 mg/dL (74-99); Non-African American GFR(CKD) >90 (>60 ml/min/1.73 sqM); Potassium 3.6 mmol/L (3.5-5.1); Sodium 140 mmol/L (137-145); Total Bilirubin 0.6 mg/dL (0.2-1.3); Total Protein 5.3 g/dL (6.3-8.2)
[2019-09-13 08:39] LABS: Basophils % (A) 0 %; Eosinophils # (A) 0.3 k/uL (0-0.7); Eosinophils % (A) 5 %; HCT 39.3 % (39.0-53.0); HGB 13.4 gm/dL (13.0-17.5); Lymphocytes # (A) 1.2 k/uL (1.0-4.8); Lymphocytes % (A) 18 %; MCH 32.3 pg (25.0-35.0); MCHC 34.1 g/dL (31.0-37.0); MCV 94.6 fL (80.0-100.0); Mean Platelet Volume 9.2; Monocytes # (A) 0.6 k/uL (0-1.0); Monocytes % (A) 9 %; Neutrophils # (A) 4.5 k/uL (1.3-7.7); Neutrophils % (A) 65 %; Platelet Count 221 k/uL (150-450); RBC 4.15 m/uL (4.30-5.90); RDW 13.5 % (11.5-15.5); WBC 6.9 k/uL (3.8-10.6)
--- NOTE | 2019-09-13 10:01 | P.DS ---
Providers Date of admission: 09/09/19 02:30 Expected date of discharge: 09/13/19 Attending physician: Trinh Lynn Consults: 09/09/19 12:27 Consult Physician Urgent Consulting Provider: Cesar Ferrera Consult Reason/Comments: Medical management Do you want consulting provider notified?: Yes 09/10/19 07:58 Consult Physician Routine Consulting Provider: Jessa Chan Consult Reason/Comments: Antibiotic management, PCN allergy diverticulitis Do you want consulting provider notified?: Yes Primary care physician: Lurdes Swanson - Discharge Diagnosis(es) (1) Perforation of small intestine due to diverticulitis Current Visit: Yes Status: Acute (2) Obesity (BMI 30.0-34.9) Current Visit: Yes Status: Acute (3) Hypertension Current Visit: Yes Status: Acute (4) Incisional hernia Current Visit: Yes Status: Acute (5) Low blood phosphate Current Visit: Yes Status: Acute Hospital Course: CHIEF COMPLAINT: Perforated diverticulitis HISTORY OF PRESENT ILLNESS: The patient is a 64-year-old male admitted secondary to perforated diverticulitis, with acute onset abdominal pain September 08. Initially he had reported penicillin ALLERGY however unaware of any side effects or adverse reactions. He was placed on Zosyn and had no reactions. As result, penicillin ALLERGY has been discontinued from his chart. Infectious disease consultation was obtained for management of antibiotics. Hospital management was obtained for medical management. He tolerated and responded well to Zosyn. His white count came down from 14,600 down to 6700 normal. Pain was well- controlled. Prior to discharge, he was tolerating liquid diet. ROS: No reports of nausea and vomiting. He had bowel movements during admission and passing moderate flatus. No fevers or chills. No new chest pain. No productive sputum PHYSICAL EXAM: VITAL SIGNS: Reviewed CONSTITUTIONAL: Well developed and in no acute distress. EYES: Conjuctivae without sclera icterus. Extraocular movements grossly intact. HEAD, EARS, NOSE, THROAT: Moist buccal mucosa. Head is atraumatic, normocephalic. Hears conversational speech. No nasal drainage. NECK: Supple. No thyroidomegaly. RESPIRATORY: Non-labored respirations and equal bilateral excursions. CARDIOVASCULAR: Palpable 2+ radial pulses. Regular rate. Regular rhythm. ABDOMEN: Soft. No peritonitis. Minimal tenderness left lower quadrant tenderness. MUSCULOSKELETAL: No gross deformity of the lower extremities noted. No clubbing. No cyanosis. SKIN: Good skin turgor. Well perfused. NEUROLOGIC: Cranial nerves I through XII grossly intact. No focal or lateralizing signs. PSYCH: Appropriate affect. Alert and oriented to person, place and time. CLINICAL LABS: White blood cell count normal, 6900 Patient Condition at Discharge: Good Plan - Discharge Summary Discharge Rx Participant: Yes New Discharge Prescriptions: No Action Multivitamins, Thera [Multivitamin (formulary)] 2 tab PO BID Calpine-3 Fatty Acids/Fish Oil [Fish Oil 1,000 mg Softgel] 1 cap PO BID Docusate [Colace] 100 mg PO BID Ascorbic Acid [Vitamin C] 1,000 mg PO BID Magnesium Hydroxide [Milk of Magnesia] 400 mg PO DAILY Atorvastatin Calcium [Lipitor] 20 mg PO DAILY Aspirin EC [Ecotrin Low Dose] 81 mg PO DAILY Vitamin E 400 unit PO BID Discharge Medication List Multivitamins, Thera [Multivitamin (formulary)] 2 tab PO BID 04/04/15 [History] Ascorbic Acid [Vitamin C] 1,000 mg PO BID 01/19/19 [History] Docusate [Colace] 100 mg PO BID 01/19/19 [History] Calpine-3 Fatty Acids/Fish Oil [Fish Oil 1,000 mg Softgel] 1 cap PO BID 01/19/19 [History] Aspirin EC [Ecotrin Low Dose] 81 mg PO DAILY 09/09/19 [History] Atorvastatin Calcium [Lipitor] 20 mg PO DAILY 09/09/19 [History] Magnesium Hydroxide [Milk of Magnesia] 400 mg PO DAILY 09/09/19 [History] Vitamin E 400 unit PO BID 09/09/19 [History] Follow up Appointment(s)/Referral(s): Lurdes Swanson MD [Primary Care Provider] - 1 Week
--- NOTE | 2019-09-13 15:25 | PN ---
PROGRESS NOTE DATE OF SERVICE: 09/13/2019 REASON FOR FOLLOWUP: Sigmoid diverticulitis with microperforation. INTERVAL HISTORY: The patient is currently afebrile. The patient has been breathing more comfortably. The patient denies having any chest pain or cough. No nausea, vomiting. Abdominal pain has improved. PHYSICAL EXAMINATION: Blood pressure 133/78 with a pulse of 74, temperature 98.2. He is 93% on room air. General description is an elderly male lying in bed in no distress. RESPIRATORY SYSTEM: Unlabored breathing. Clear to auscultation anteriorly. HEART: S1, S2. Regular rate and rhythm. ABDOMEN: Soft. No tenderness. LABS: White count normal at 6.9, creatinine 0.57. DIAGNOSTIC IMPRESSION AND PLAN: Patient with acute sigmoid diverticulitis with perforation. Patient has had overall clinical improvement on Zosyn. The patient has been cleared for discharge by Surgery. Antibiotic will be switched over to Cipro and Flagyl for 10 days. Discussed with the nurse practitioner for the surgical team working on discharge. Continue with supportive care. MMODL / TONYAN: [id number] /
== END 2019-09-13 14:30 | disposition home or self-care (01) | DRG 392 ==
LOC: EC 23:40 → 4SSUR 09-09 02:30
PROVIDERS: ADMIT Surgery Plastic and Reconstructive Surgery; ATTEND Surgery Plastic and Reconstructive Surgery
DX: K57.20 Diverticulitis of large intestine with perforation and abscess without bleeding (principal); E66.9 Obesity, unspecified; Z68.33 Body mass index [BMI] 33.0-33.9, adult; E78.5 Hyperlipidemia, unspecified; Z11.59 Encounter for screening for other viral diseases; I10 Essential (primary) hypertension; K43.2 Incisional hernia without obstruction or gangrene; M72.2 Plantar fascial fibromatosis; M54.5 Low back pain; K21.9 Gastro-esophageal reflux disease without esophagitis; K44.9 Diaphragmatic hernia without obstruction or gangrene; N40.0 Benign prostatic hyperplasia without lower urinary tract symptoms; Z79.82 Long term (current) use of aspirin; Z79.899 Other long term (current) drug therapy; Z98.890 Other specified postprocedural states; Z86.718 Personal history of other venous thrombosis and embolism; Z87.01 Personal history of pneumonia (recurrent); Z86.19 Personal history of other infectious and parasitic diseases; Z85.828 Personal history of other malignant neoplasm of skin; Z90.49 Acquired absence of other specified parts of digestive tract; Z86.010 Personal history of colon polyps; Z88.0 Allergy status to penicillin; Z88.5 Allergy status to narcotic agent; Z82.5 Family history of asthma and other chronic lower respiratory diseases; Z83.3 Family history of diabetes mellitus; Z80.0 Family history of malignant neoplasm of digestive organs; Z82.49 Family history of ischemic heart disease and other diseases of the circulatory system; Z80.7 Family history of other malignant neoplasms of lymphoid, hematopoietic and related tissues
CPT/HCPCS: 74177; 80048; 80053; 83735; 84100; 84484; 85025; 87635; 96361; 96374; 96375; 96376; 99285

== ENCOUNTER 2020-01-03 14:38 | Emergency (ER) | payer MEDICARE, OTHER ==
[2020-01-03 14:46] VITALS: TEMP 98.2
--- NOTE | 2020-01-03 14:54 | ED ---
Abdominal Pain HPI - General Chief Complaint: Abdominal Pain Stated Complaint: Abd Pain Time Seen by Provider: 01/03/20 14:53 Source: patient Mode of arrival: wheelchair Limitations: no limitations - History of Present Illness Initial Comments: Patient is 64-year-old male presenting to the emergency department with a chief complaint of abdominal pain. Patient reports he was scheduled to see Dr. Zuñiga tomorrow for an elective hernia repair along with removal of adhesions from previous abdominal surgeries. Patient reports over the last few days he developed increased right-sided abdominal pain that seems to be sharp in nature and exacerbated with twisting of the torso. Patient reports history of small bowel obstruction followed by bowel resection. Patient also reports surgical history of cholecystectomy and appendectomy. He denies any night sweats fevers or chills. Denies any nausea vomiting diarrhea. States his last bowel movement was today with no signs of hematochezia or melena. Denies any urinary obstructive symptoms. Denies chest pain or shortness of breath. - Related Data Home Medications Medication Instructions Recorded Confirmed Multivitamins, Thera [Multivitamin 2 tab PO BID 04/04/15 09/09/19 (formulary)] Ascorbic Acid [Vitamin C] 1,000 mg PO BID 01/19/19 09/09/19 Docusate [Colace] 100 mg PO BID 01/19/19 09/09/19 [place]-3 Fatty Acids/Fish Oil [Fish 1 cap PO BID 01/19/19 09/09/19 Oil 1,000 mg Softgel] Aspirin EC [Ecotrin Low Dose] 81 mg PO DAILY 09/09/19 09/09/19 Atorvastatin Calcium [Lipitor] 20 mg PO DAILY 09/09/19 09/09/19 Magnesium Hydroxide [Milk of 400 mg PO DAILY 09/09/19 09/09/19 Magnesia] Vitamin E 400 unit PO BID 09/09/19 09/09/19 Previous Rx's Medication Instructions Recorded Acetaminophen Tab [Tylenol Tab] 1,000 mg PO Q6HR PRN #30 tablet 09/13/19 Ciprofloxacin HCl [Cipro] 500 mg PO BID 10 Days #20 tab 09/13/19 Ibuprofen [Motrin] 600 mg PO Q8HR PRN #30 tab 09/13/19 Omeprazole [PriLOSEC] 40 mg PO DAILY #14 cap 09/13/19 metroNIDAZOLE [Flagyl] 500 mg PO TID #30 tab 09/13/19 Allergies Allergy/AdvReac Type Severity Reaction Status Date / Time morphine Allergy Rash/Hives Verified 09/09/19 09:34 Review of Systems ROS Statement: Those systems with pertinent positive or pertinent negative responses have been documented in the HPI. ROS Other: All systems not noted in ROS Statement are negative. Past Medical History Past Medical History: Cancer, Deep Vein Thrombosis (DVT), GERD/Reflux, Hyperlipidemia, Pneumonia Additional Past Medical History / Comment(s): SBOs, L lower leg DVT, blood clot behind R eye, basal skin cancer with removals, pneumonia with SIRS, sinus problems, low back pain, L foot plantar fascitis, urine flow issues at times, past hiatal hernia-(sx) History of Any Multi-Drug Resistant Organisms: C-DIFF Date of last positivie culture/infection: 2009 MDRO Source:: stool Past Surgical History: Adenoidectomy, Bowel Resection, Cholecystectomy, Hernia Repair, Tonsillectomy Additional Past Surgical History / Comment(s): Exploratory lap with lysis of adhesions, small bowel decompression, yamileth fundiplication, EGD, colonoscopies/benign polypectomies, T&A twice, skin cancer removals, Past Anesthesia/Blood Transfusion Reactions: No Reported Reaction Past Psychological History: No Psychological Hx Reported Smoking Status: Never smoker Past Alcohol Use History: None Reported Past Drug Use History: None Reported - Past Family History Mother Family Medical History: Cancer, Diabetes Mellitus Additional Family Medical History / Comment(s): Emphysema, heart problems, COLON CANCER. Father Additional Family Medical History / Comment(s): COLON CA LIVER CA,MULTIPLE MYELOMA, bone cancer General Exam Limitations: no limitations General appearance: alert, in no apparent distress Head exam: Present: atraumatic, normocephalic, normal inspection Eye exam: Present: normal appearance, PERRL, EOMI Pupils: Present: normal accommodation ENT exam: Present: normal exam, normal oropharynx, mucous membranes moist, TM's normal bilaterally, normal external ear exam Neck exam: Present: normal inspection, full ROM. Absent: tenderness Respiratory exam: Present: normal lung sounds bilaterally. Absent: respiratory distress, wheezes Cardiovascular Exam: Present: regular rate, normal rhythm, normal heart sounds GI/Abdominal exam: Present: soft, tenderness (Right-sided abdominal tenderness. Right flank pain.), normal bowel sounds. Absent: distended, guarding, rebound, rigid Extremities exam: Present: normal inspection, full ROM. Absent: tenderness Back exam: Present: normal inspection, full ROM, CVA tenderness (R). Absent: te nderness Neurological exam: Present: alert, oriented X3 Psychiatric exam: Present: normal affect, normal mood Skin exam: Present: warm, dry, intact, normal color Course Vital Signs 01/03/20 01/03/20 01/03/20 14:42 15:38 16:30 Temperature 98.2 F Pulse Rate 71 72 69 Respiratory 16 18 18 Rate Blood Pressure 119/77 117/79 116/66 O2 Sat by Pulse 96 91 L 93 L Oximetry 01/03/20 17:30 Temperature Pulse Rate Respiratory Rate Blood Pressure O2 Sat by Pulse 95 Oximetry Medical Decision Making - Medical Decision Making Patient is 64-year-old male presenting to the emergency department with a chief complaint of abdominal pain. On exam patient appears to have right-sided abdom inal pain/right flank pain. CBC CMP and UA are unremarkable. CT of abdomen and pelvis reveals moderate to severe sigmoid diverticulosis but no signs of diverticulitis. Broad-based umbilical hernia containing small bowel but no evidence of bowel obstruction. Small ventral hernia above the umbilicus containing fat. Hernia appears to be unchanged compared to last exam. Patient was given fluids and analgesia. Case was discussed with Dr. Lai who also examined the patient. Dr. Felton was contacted and advised outpatient follow-up. Return prescribed as were thoroughly discussed the patient was understanding and agreeable. Case discussed with physician. - Lab Data Result diagrams: 01/03/20 15:14 01/03/20 15:14 Lab Results 01/03/20 01/03/20 01/03/20 Range/Units 15:14 15:14 15:14 WBC 9.9 (3.8-10.6) k/uL RBC 5.10 (4.30-5.90) m/uL Hgb 15.8 (13.0-17.5) gm/dL Hct 47.0 (39.0-53.0) % MCV 92.1 (80.0-100.0) fL MCH 31.0 (25.0-35.0) pg MCHC 33.6 (31.0-37.0) g/dL RDW 12.9 (11.5-15.5) % Plt Count 234 (150-450) k/uL Neutrophils % 62 % Lymphocytes % 20 % Monocytes % 9 % Eosinophils % 5 % Basophils % 1 % Neutrophils # 6.1 (1.3-7.7) k/uL Lymphocytes # 2.0 (1.0-4.8) k/uL Monocytes # 0.9 (0-1.0) k/uL Eosinophils # 0.5 (0-0.7) k/uL Basophils # 0.1 (0-0.2) k/uL Sodium 138 (137-145) mmol/L Potassium 4.7 (3.5-5.1) mmol/L Chloride 106 (98-107) mmol/L Carbon Dioxide 24 (22-30) mmol/L Anion Gap 8 mmol/L BUN 18 (9-20) mg/dL Creatinine 0.64 L (0.66-1.25) mg/dL Est GFR (CKD-EPI)AfAm >90 (>60 ml/min/1.73 sqM) Est GFR (CKD-EPI)NonAf >90 (>60 ml/min/1.73 sqM) Glucose 93 (74-99) mg/dL Plasma Lactic Acid [place] (0.7-2.0) mmol/L Calcium 9.4 (8.4-10.2) mg/dL Total Bilirubin 0.8 (0.2-1.3) mg/dL AST 43 (17-59) U/L ALT 28 (4-49) U/L Alkaline Phosphatase 75 (38-126) U/L Total Protein 7.3 (6.3-8.2) g/dL Albumin 4.6 (3.5-5.0) g/dL Amylase 30 (30-110) U/L Lipase 18 L (23-300) U/L Urine Color Yellow Urine Appearance Clear (Clear) Urine pH 5.5 (5.0-8.0) Ur Specific [place] 1.016 (1.001-1.035) Urine Protein Negative (Negative) Urine Glucose (UA) Negative (Negative) Urine Ketones Negative (Negative) Urine Blood Negative (Negative) Urine Nitrite Negative (Negative) Urine Bilirubin Negative (Negative) Urine Urobilinogen <2.0 (<2.0) mg/dL Ur Leukocyte Esterase Negative (Negative) 01/03/20 Range/Units 15:14 WBC (3.8-10.6) k/uL RBC (4.30-5.90) m/uL Hgb (13.0-17.5) gm/dL Hct (39.0-53.0) % MCV (80.0-100.0) fL MCH (25.0-35.0) pg MCHC (31.0-37.0) g/dL RDW (11.5-15.5) % Plt Count (150-450) k/uL Neutrophils % % Lymphocytes % % Monocytes % % Eosinophils % % Basophils % % Neutrophils # (1.3-7.7) k/uL Lymphocytes # (1.0-4.8) k/uL Monocytes # (0-1.0) k/uL Eosinophils # (0-0.7) k/uL Basophils # (0-0.2) k/uL Sodium (137-145) mmol/L Potassium (3.5-5.1) mmol/L Chloride (98-107) mmol/L Carbon Dioxide (22-30) mmol/L Anion Gap mmol/L BUN (9-20) mg/dL Creatinine (0.66-1.25) mg/dL Est GFR (CKD-EPI)AfAm (>60 ml/min/1.73 sqM) Est GFR (CKD-EPI)NonAf (>60 ml/min/1.73 sqM) Glucose (74-99) mg/dL Plasma Lactic Acid [place] 1.0 (0.7-2.0) mmol/L Calcium (8.4-10.2) mg/dL Total Bilirubin (0.2-1.3) mg/dL AST (17-59) U/L ALT (4-49) U/L Alkaline Phosphatase (38-126) U/L Total Protein (6.3-8.2) g/dL Albumin (3.5-5.0) g/dL Amylase (30-110) U/L Lipase (23-300) U/L Urine Color Urine Appearance (Clear) Urine pH (5.0-8.0) Ur Specific [place] (1.001-1.035) Urine Protein (Negative) Urine Glucose (UA) (Negative) Urine Ketones (Negative) Urine Blood (Negative) Urine Nitrite (Negative) Urine Bilirubin (Negative) Urine Urobilinogen (<2.0) mg/dL Ur Leukocyte Esterase (Negative) - EKG Data EKG Comments: Sinus rhythm and no ST or T-wave changes. Ventricular rate 69, VT 174, QRS 160, QTC 443. Disposition Clinical Impression: Abdominal pain, Right flank pain Disposition: HOME SELF-CARE Condition: Stable Instructions (If sedation given, give patient instructions): Abdominal Pain (ED) Additional Instructions: Follow-up with Dr. Gottlieb. Return to emergency department if symptoms worsen. Is patient prescribed a controlled substance at d/c from ED?: No Referrals: Lurdes Swanson MD [Primary Care Provider] - 1-2 days Time of Disposition: 18:49
[2020-01-03] MEDS ORDERED: SODIUM CHLORIDE 0.9% 1,000 ML IV STA (15:06)
[2020-01-03] MEDS ORDERED: HYDROmorphone 1 MG/ML 1 ML SYRINGE IVP STA ×2 (15:06→16:54)
[2020-01-03 15:56] LABS: Basophils # (A) 0.1 k/uL (0-0.2); Basophils % (A) 1 %; Eosinophils # (A) 0.5 k/uL (0-0.7); Eosinophils % (A) 5 %; HGB 15.8 gm/dL (13.0-17.5); Lymphocytes % (A) 20 %; MCHC 33.6 g/dL (31.0-37.0); MCV 92.1 fL (80.0-100.0); Mean Platelet Volume 7.4; Monocytes # (A) 0.9 k/uL (0-1.0); Monocytes % (A) 9 %; Neutrophils # (A) 6.1 k/uL (1.3-7.7); Neutrophils % (A) 62 %; Platelet Count 234 k/uL (150-450); RDW 12.9 % (11.5-15.5); WBC 9.9 k/uL (3.8-10.6)
[2020-01-03 15:58] LABS: Appearance,Urine Clear (Clear); Bilirubin,Urine Negative (Negative); Blood,Urine Negative (Negative); Color,Urine Yellow; Glucose,Urine (UA) Negative (Negative); Ketones,Urine Negative (Negative); Leukocyte Esterase,Urine Negative (Negative); Nitrite,Urine Negative (Negative); PH, Urine 5.5 (5.0-8.0); Protein,Urine Negative (Negative); Specific Gravity,Urine 1.016 (1.001-1.035); Urobilinogen,Urine <2.0 mg/dL (<2.0)
[2020-01-03 16:13] LABS: ALT 28 U/L (4-49); AST 43 U/L (17-59); African American GFR (CKD) >90 (>60 ml/min/1.73 sqM); Albumin 4.6 g/dL (3.5-5.0); Alkaline Phosphatase 75 U/L (38-126); Amylase 30 U/L (30-110); Anion Gap 8 mmol/L; Blood Urea Nitrogen 18 mg/dL (9-20); Calcium 9.4 mg/dL (8.4-10.2); Carbon Dioxide 24 mmol/L (22-30); Chloride 106 mmol/L (98-107); Glucose 93 mg/dL (74-99); Non-African American GFR(CKD) >90 (>60 ml/min/1.73 sqM); Potassium 4.7 mmol/L (3.5-5.1); Sodium 138 mmol/L (137-145); Total Bilirubin 0.8 mg/dL (0.2-1.3); Total Protein 7.3 g/dL (6.3-8.2)
--- NOTE | 2020-01-03 17:39 | CT ---
EXAMINATION TYPE: CT abdomen pelvis w con DATE OF EXAM: 01/03/2020 COMPARISON: 09/09/2019 HISTORY: Right sided abdominal pain. History of small bowel obstruction and hernia. CT DLP: 1931 mGycm Automated exposure control for dose reduction was used. CONTRAST: Performed with IV Contrast, patient injected with 100 mL of Isovue 300. Lung bases are clear. There is no pleural effusion. Heart appears normal. There is no pericardial eff usion. Liver shows no focal defect. The bile ducts are not dilated. Gallbladder appears absent. There are cl ips at the gastric fundus. Spleen is intact. There is no pancreatic mass. Stomach has normal size. There is small periumbilical hernia that contains fat and measures 2 cm. There is broad-based umbilic al hernia containing loop of small bowel. There is no evidence of a bowel obstruction. There is no adrenal mass. Kidneys show satisfactory contrast opacification. There is no hydronephrosi s. There is 2.5 cm cortical cyst posterior right kidney. Ureters are not dilated. There is no retrope ritoneal adenopathy. There are numerous sigmoid diverticula. Bladder distends smoothly. There is no i nguinal hernia. There is no evidence of thickened appendix. There is no evidence of bowel obstruction. There is no ascites or free air. Lumbar spine appears inta ct. There is no compression fracture. There is spurring of the endplates. The bony pelvis is intact. The proximal femurs and hip joints are intact. IMPRESSION: Moderately severe sigmoid diverticulosis. There is clearing of the changes of diverticulitis of the s igmoid colon compared to old exam. Fat stranding is mostly cleared. Broad-based umbilical hernia containing small bowel but no evidence of a bowel obstruction. Small raz tral hernia above the umbilicus containing fat. Hernia is appear unchanged compared to old exam.
[2020-01-03 17:50] VITALS: PULSE 69; RESP 18
[2020-01-03 19:18] VITALS: BP 119/74
== END 2020-01-03 19:25 | disposition home or self-care (01) ==
LOC: EC 14:38
DX: K57.30 Diverticulosis of large intestine without perforation or abscess without bleeding (principal); K42.9 Umbilical hernia without obstruction or gangrene; K43.9 Ventral hernia without obstruction or gangrene; E78.5 Hyperlipidemia, unspecified; Z79.82 Long term (current) use of aspirin; Z88.5 Allergy status to narcotic agent; Z90.49 Acquired absence of other specified parts of digestive tract; Z85.828 Personal history of other malignant neoplasm of skin; Z86.718 Personal history of other venous thrombosis and embolism; Z90.89 Acquired absence of other organs; Z98.890 Other specified postprocedural states
CPT/HCPCS: 36415; 93005; 80053; 82150; 83605; 83690; 85025; 81003; 74177; 99284; 96374; 96376; 96361 ×2; J1170; Q9967

== ENCOUNTER 2020-02-10 08:19 | Day surgery (SDC) | payer OTHER ==
--- NOTE | 2020-02-10 07:32 | P.GSHP ---
History of Present Illness H&P Date: 02/10/20 CHIEF COMPLAINT: Colon screen HISTORY OF PRESENT ILLNESS: The patient is a 64-year-old male who presents for colon screen. Lower endoscopy was offered for further evaluation and management. PAST MEDICAL HISTORY: Please see list. PAST SURGICAL HISTORY: Please see list. MEDICATIONS: Please see list. ALLERGIES: Please see list. SOCIAL HISTORY: No illicit drug use FAMILY HISTORY: No reports of Crohn disease or ulcerative colitis. REVIEW OF ORGAN SYSTEMS: CONSTITUTIONAL: No reports of fevers or chills. PHYSICAL EXAM: VITAL SIGNS: Stable GENERAL: Well-developed pleasant in no acute distress. HEENT: No scleral icterus. Extraocular movements grossly intact. Moist buccal mucosa. NECK: Supple without lymphadenopathy. CHEST: Unlabored respirations. Equal bilateral excursions. CARDIOVASCULAR: Regular rate and rhythm. Distal 2+ pulses. ABDOMEN: Soft, nontender, nondistended. MUSCULOSKELETAL: No clubbing, cyanosis, or edema. ASSESSMENT: 1. Colon screen. PLAN: 1. Recommend proceeding with a lower endoscopy Past Medical History Past Medical History: Cancer, Deep Vein Thrombosis (DVT), GERD/Reflux, Hyperlipidemia, Pneumonia Additional Past Medical History / Comment(s): SBOs, L lower leg DVT, blood clot behind R eye, basal skin cancer with removals, pneumonia with SIRS, sinus problems, low back pain, L foot plantar fascitis, urine flow issues at times, past hiatal hernia-(sx) History of Any Multi-Drug Resistant Organisms: C-DIFF Date of last positivie culture/infection: 2009 MDRO Source:: stool Past Surgical History: Adenoidectomy, Bowel Resection, Cholecystectomy, Hernia Repair, Tonsillectomy Additional Past Surgical History / Comment(s): Exploratory lap with lysis of adhesions, small bowel decompression, yamileth fundiplication, EGD, colonoscopies/benign polypectomies, T&A twice, skin cancer removals, Past Anesthesia/Blood Transfusion Reactions: No Reported Reaction Past Psychological History: No Psychological Hx Reported Smoking Status: Never smoker Past Alcohol Use History: None Reported Past Drug Use History: None Reported - Past Family History Mother Family Medical History: Cancer, Diabetes Mellitus Additional Family Medical History / Comment(s): Emphysema, heart problems, COLON CANCER. Father Additional Family Medical History / Comment(s): COLON CA LIVER CA,MULTIPLE MYELOMA, bone cancer Medications and Allergies Home Medications Medication Instructions Recorded Confirmed Type Multivitamins, Thera [Multivitamin 2 tab PO BID 04/04/15 09/09/19 History (formulary)] Ascorbic Acid [Vitamin C] 1,000 mg PO BID 01/19/19 09/09/19 History Docusate [Colace] 100 mg PO BID 01/19/19 09/09/19 History [place]-3 Fatty Acids/Fish Oil [Fish 1 cap PO BID 01/19/19 09/09/19 History Oil 1,000 mg Softgel] Aspirin EC [Ecotrin Low Dose] 81 mg PO DAILY 09/09/19 09/09/19 History Atorvastatin Calcium [Lipitor] 20 mg PO DAILY 09/09/19 09/09/19 History Magnesium Hydroxide [Milk of 400 mg PO DAILY 09/09/19 09/09/19 History Magnesia] Vitamin E 400 unit PO BID 09/09/19 09/09/19 History Acetaminophen Tab [Tylenol Tab] 1,000 mg PO Q6HR PRN #30 tablet 09/13/19 Rx Ciprofloxacin HCl [Cipro] 500 mg PO BID 10 Days #20 tab 09/13/19 Rx Ibuprofen [Motrin] 600 mg PO Q8HR PRN #30 tab 09/13/19 Rx Omeprazole [PriLOSEC] 40 mg PO DAILY #14 cap 09/13/19 Rx metroNIDAZOLE [Flagyl] 500 mg PO TID #30 tab 09/13/19 Rx Allergies Allergy/AdvReac Type Severity Reaction Status Date / Time morphine Allergy Rash/Hives Verified 09/09/19 09:34
[2020-02-10] MEDS ORDERED: LACTATED RINGERS 1,000 ML IV ONE (09:46)
[2020-02-10 09:49] VITALS: TEMP 96.8
[2020-02-10] MEDS ORDERED: PROPOFOL 10 MG/ML 20 ML VIAL IV ONE (10:21)
--- NOTE | 2020-02-10 11:05 | P.PCN ---
Date of Procedure: 02/10/20 Description of Procedure: PREOPERATIVE DIAGNOSIS: History of diverticulitis Colonoscopy screening POSTOPERATIVE DIAGNOSIS: Ascending colon adenoma Severe sigmoid diverticulosis OPERATION: Colonoscopy to the ileocecal valve and appendiceal orifice, cecum Colonoscopy with multiple hot snare polypectomy SURGEON: Trinh Lynn MD. ANESTHESIA: MAC. INDICATIONS: The patient is an 64-year-old male who presents for colonoscopy screening. He has history of diverticulitis. Benefits and risks were described and informed consent was obtained. DESCRIPTION OF PROCEDURE: The patient had undergone Suprep. He had been brought into the operating room and laid in the left lateral decubitus position. After adequate intravenous sedation, the rectum was examined with 2% lidocaine jelly. The prostate was unremarkable. No external hemorrhoids were encountered. The rectal tone was within normal limits. No lesions were palpated in the rectal vault. An Olympus colonoscope was advanced until the cecum, ileocecal valve and appendiceal orifice were clearly viewed. The prep was fair. Severe sigmoid diverticulosis starting at 30 cm from the anal verge was encountered. Colonic polyps were found and snare polypectomy. No evidence of focal colitis was found. Retroflexion of the scope demonstrated grade 1 internal hemorrhoids without active bleeding or inflammation. The colon was desufflated. The patient had tolerated the procedure well. Withdrawal time was over 6 minutes. FINDINGS: [place]ron[place]ick preparation quality scale 2 (1-5) Internal hemorrhoids, grade 1 No external hemorrhoids No arteriovenous malformations. Severe sigmoid diverticulosis starting at 30 cm from the anal verge Removal of 1 polyp: - Snare polypectomy ascending colon, 10 mm flat tubulovillous adenoma polyp removed in piecemeal No focal colitis. RECOMMENDATIONS: Repeat colonoscopy in 2 years, 2021 Plan - Discharge Summary New Discharge Prescriptions: Continue Multivitamins, Thera [Multivitamin (formulary)] 2 tab PO BID [place]-3 Fatty Acids/Fish Oil [Fish Oil 1,000 mg Softgel] 1 cap PO BID Docusate [Colace] 100 mg PO BID Ascorbic Acid [Vitamin C] 1,000 mg PO BID Magnesium Hydroxide [Milk of Magnesia] 400 mg PO DAILY Atorvastatin Calcium [Lipitor] 20 mg PO DAILY Aspirin EC [Ecotrin Low Dose] 81 mg PO DAILY Vitamin E 400 unit PO BID Ibuprofen [Motrin] 600 mg PO Q8HR PRN #30 tab PRN Reason: Pain Omeprazole [PriLOSEC] 40 mg PO DAILY #14 cap Acetaminophen Tab [Tylenol] 1,000 mg PO Q6HR PRN #30 tablet Ciprofloxacin HCl [Cipro] 500 mg PO BID 10 Days #20 tab metroNIDAZOLE [Flagyl] 500 mg PO TID #30 tab Discharge Medication List Multivitamins, Thera [Multivitamin (formulary)] 2 tab PO BID 04/04/15 [History] Ascorbic Acid [Vitamin C] 1,000 mg PO BID 01/19/19 [History] Docusate [Colace] 100 mg PO BID 01/19/19 [History] [place]-3 Fatty Acids/Fish Oil [Fish Oil 1,000 mg Softgel] 1 cap PO BID 01/19/19 [History] Aspirin EC [Ecotrin Low Dose] 81 mg PO DAILY 09/09/19 [History] Atorvastatin Calcium [Lipitor] 20 mg PO DAILY 09/09/19 [History] Magnesium Hydroxide [Milk of Magnesia] 400 mg PO DAILY 09/09/19 [History] Vitamin E 400 unit PO BID 09/09/19 [History] Acetaminophen Tab [Tylenol] 1,000 mg PO Q6HR PRN #30 tablet 09/13/19 [Rx] Ciprofloxacin HCl [Cipro] 500 mg PO BID 10 Days #20 tab 09/13/19 [Rx] Ibuprofen [Motrin] 600 mg PO Q8HR PRN #30 tab 09/13/19 [Rx] Omeprazole [PriLOSEC] 40 mg PO DAILY #14 cap 09/13/19 [Rx] metroNIDAZOLE [Flagyl] 500 mg PO TID #30 tab 09/13/19 [Rx] Follow up Appointment(s)/Referral(s): Trinh Lynn MD [STAFF PHYSICIAN] - 02/22/20 Patient Instructions/Handouts: Diverticulitis (DC), Diverticulitis Diet (DC) Activity/Diet/Wound Care/Special Instructions: Avoid all foods with seeds. Repeat colonoscopy in 3 years, 2022 Discharge Disposition: HOME SELF-CARE
[2020-02-10 11:12] VITALS: RESP 16
[2020-02-10 11:22] VITALS: BP 127/75; PULSE 61
== END 2020-02-10 11:37 | disposition home or self-care (01) ==
LOC: ORWHC2ENDO 08:19
PROVIDERS: ATTEND Surgery Plastic and Reconstructive Surgery
DX: Z12.11 Encounter for screening for malignant neoplasm of colon (principal); D12.2 Benign neoplasm of ascending colon; K57.30 Diverticulosis of large intestine without perforation or abscess without bleeding; K64.0 First degree hemorrhoids; K21.9 Gastro-esophageal reflux disease without esophagitis; E78.5 Hyperlipidemia, unspecified; M72.2 Plantar fascial fibromatosis; M54.5 Low back pain; M79.672 Pain in left foot; Z87.01 Personal history of pneumonia (recurrent); Z85.828 Personal history of other malignant neoplasm of skin; Z86.718 Personal history of other venous thrombosis and embolism; Z86.79 Personal history of other diseases of the circulatory system; Z86.19 Personal history of other infectious and parasitic diseases; Z90.49 Acquired absence of other specified parts of digestive tract; Z98.890 Other specified postprocedural states; Z83.3 Family history of diabetes mellitus; Z80.0 Family history of malignant neoplasm of digestive organs; Z82.49 Family history of ischemic heart disease and other diseases of the circulatory system; Z80.7 Family history of other malignant neoplasms of lymphoid, hematopoietic and related tissues; Z80.8 Family history of malignant neoplasm of other organs or systems; Z79.82 Long term (current) use of aspirin; Z79.899 Other long term (current) drug therapy; Z88.5 Allergy status to narcotic agent
CPT/HCPCS: 88305; 45385; J2704

== ENCOUNTER 2020-02-16 15:53 | Inpatient (IN) | payer OTHER, MEDICARE ==
[2020-02-16] MEDS ORDERED: SODIUM CHLORIDE 0.9% 500 ML 500 ML IV STA (16:21)
[2020-02-16] MEDS ORDERED: SODIUM CHLORIDE 0.9% 1,000 ML IV STA (16:21)
[2020-02-16] MEDS ORDERED: PANTOPRAZOLE 40 MG/10 ML VIAL IVP STA (16:21)
--- NOTE | 2020-02-16 16:24 | ED ---
General Adult HPI - General Chief complaint: GI Bleed Stated complaint: GI Bleed Time Seen by Provider: 02/16/20 15:54 Source: patient, RN notes reviewed Mode of arrival: EMS Limitations: no limitations - History of Present Illness Initial comments: Patient is a pleasant 64-year-old male presenting to the emergency Department with lower GI hemorrhage. Onset of symptoms was 1 AM. Patient has had multiple episodes of loose bowel movements that is been black, occasionally red. Patient did have colonoscopy done 5 days ago with removal of a possibly precancerous lesion. Patient does feel somewhat fatigued. No dyspnea. No abdominal pain. No fever. No history of similar symptoms previously. - Related Data Home Medications Medication Instructions Recorded Confirmed Multivitamins, Thera [Multivitamin 2 tab PO BID 04/04/15 02/10/20 (formulary)] Ascorbic Acid [Vitamin C] 1,000 mg PO BID 01/19/19 02/10/20 Docusate [Colace] 100 mg PO BID 01/19/19 02/10/20 [place]-3 Fatty Acids/Fish Oil [Fish 1 cap PO BID 01/19/19 02/10/20 Oil 1,000 mg Softgel] Aspirin EC [Ecotrin Low Dose] 81 mg PO DAILY 09/09/19 02/10/20 Atorvastatin Calcium [Lipitor] 20 mg PO DAILY 09/09/19 02/10/20 Magnesium Hydroxide [Milk of 400 mg PO DAILY 09/09/19 02/10/20 Magnesia] Vitamin E 400 unit PO BID 09/09/19 02/10/20 Previous Rx's Medication Instructions Recorded Acetaminophen Tab [Tylenol] 1,000 mg PO Q6HR PRN #30 tablet 09/13/19 Ciprofloxacin HCl [Cipro] 500 mg PO BID 10 Days #20 tab 09/13/19 Ibuprofen [Motrin] 600 mg PO Q8HR PRN #30 tab 09/13/19 Omeprazole [PriLOSEC] 40 mg PO DAILY #14 cap 09/13/19 metroNIDAZOLE [Flagyl] 500 mg PO TID #30 tab 09/13/19 Allergies Allergy/AdvReac Type Severity Reaction Status Date / Time morphine Allergy Rash/Hives Verified 02/16/20 16:06 Review of Systems ROS Statement: Those systems with pertinent positive or pertinent negative responses have been documented in the HPI. ROS Other: All systems not noted in ROS Statement are negative. Constitutional: Denies: fever Eyes: Denies: eye pain ENT: Denies: ear pain Respiratory: Denies: cough, dyspnea Cardiovascular: Denies: chest pain Endocrine: Reports: fatigue Gastrointestinal: Reports: melena, hematochezia. Denies: abdominal pain Genitourinary: Denies: dysuria Musculoskeletal: Denies: back pain Skin: Denies: rash Neurological: Denies: weakness Past Medical History Past Medical History: Cancer, Deep Vein Thrombosis (DVT), GERD/Reflux, Hyperlipidemia, Pneumonia Additional Past Medical History / Comment(s): SBOs, L lower leg DVT, blood clot behind R eye, basal skin cancer with removals, pneumonia with SIRS, sinus problems, low back pain, L foot plantar fascitis, urine flow issues at times, past hiatal hernia-(sx) History of Any Multi-Drug Resistant Organisms: C-DIFF Date of last positivie culture/infection: 2009 MDRO Source:: stool Past Surgical History: Adenoidectomy, Bowel Resection, Cholecystectomy, Hernia Repair, Tonsillectomy Additional Past Surgical History / Comment(s): Exploratory lap with lysis of adhesions, small bowel decompression, yamileth fundiplication, EGD, colonoscopies/benign polypectomies, T&A twice, skin cancer removals, Past Anesthesia/Blood Transfusion Reactions: No Reported Reaction Past Psychological History: No Psychological Hx Reported Smoking Status: Never smoker Past Alcohol Use History: None Reported Past Drug Use History: None Reported - Past Family History Mother Family Medical History: Cancer, Diabetes Mellitus Additional Family Medical History / Comment(s): Emphysema, heart problems, COLON CANCER. Father Additional Family Medical History / Comment(s): COLON CA LIVER CA,MULTIPLE MYELOMA, bone cancer General Exam Limitations: no limitations General appearance: alert, in no apparent distress Head exam: Present: normocephalic Eye exam: Present: normal appearance Neck exam: Present: normal inspection Respiratory exam: Present: normal lung sounds bilaterally Cardiovascular Exam: Present: regular rate, normal rhythm GI/Abdominal exam: Present: soft, normal bowel sounds. Absent: distended, ten derness, guarding, rebound, rigid, pulsatile mass Extremities exam: Present: normal inspection Neurological exam: Present: alert Psychiatric exam: Present: normal affect, normal mood Skin exam: Present: pallor Course Vital Signs 02/16/20 16:03 Temperature 98.4 F Pulse Rate 88 Respiratory 16 Rate Blood Pressure 102/73 O2 Sat by Pulse 96 Oximetry EKG Findings - EKG Comments: EKG Findings:: Normal sinus rhythm 88. MA 152. QRS 102. QT 366. QTc 442. Left axis. Inferior Q waves. No acute ST change. Medical Decision Making - Medical Decision Making Patient reevaluated and resting comfortably in bed. Patient and family updated on results and plan. Case was discussed in detail with Dr. Felton who is fa miliar with this patient. She feels bleeding is more likely diverticular than from the colonoscopy. She does not feel patient needs computed tomography scan at this time. She will admit. Consult with medicine. - Lab Data Result diagrams: 02/16/20 16:30 02/16/20 16:30 Lab Results 02/16/20 02/16/20 02/16/20 Range/Units 16:30 16:30 16:30 WBC 7.3 (3.8-10.6) k/uL RBC 4.11 L (4.30-5.90) m/uL Hgb 13.1 (13.0-17.5) gm/dL Hct 38.3 L (39.0-53.0) % MCV 93.1 (80.0-100.0) fL MCH 32.0 (25.0-35.0) pg MCHC 34.3 (31.0-37.0) g/dL RDW 12.6 (11.5-15.5) % Plt Count 227 (150-450) k/uL Neutrophils % 68 % Lymphocytes % 21 % Monocytes % 6 % Eosinophils % 2 % Basophils % 1 % Neutrophils # 5.0 (1.3-7.7) k/uL Lymphocytes # 1.5 (1.0-4.8) k/uL Monocytes # 0.4 (0-1.0) k/uL Eosinophils # 0.2 (0-0.7) k/uL Basophils # 0.1 (0-0.2) k/uL PT 10.0 (9.0-12.0) sec INR 1.0 (<1.2) APTT 23.1 (22.0-30.0) sec Sodium 136 L (137-145) mmol/L Potassium 4.8 (3.5-5.1) mmol/L Chloride 106 (98-107) mmol/L Carbon Dioxide 23 (22-30) mmol/L Anion Gap 7 mmol/L BUN 22 H (9-20) mg/dL Creatinine 0.79 (0.66-1.25) mg/dL Est GFR (CKD-EPI)AfAm >90 (>60 ml/min/1.73 sqM) Est GFR (CKD-EPI)NonAf >90 (>60 ml/min/1.73 sqM) Glucose 120 H (74-99) mg/dL Calcium 8.9 (8.4-10.2) mg/dL Total Bilirubin 0.5 (0.2-1.3) mg/dL AST 25 (17-59) U/L ALT 19 (4-49) U/L Alkaline Phosphatase 68 (38-126) U/L Total Protein 6.0 L (6.3-8.2) g/dL Albumin 3.5 (3.5-5.0) g/dL Disposition Clinical Impression: Lower GI hemorrhage Disposition: ADMITTED IP TO THIS HOSP Is patient prescribed a controlled substance at d/c from ED?: No Referrals: Lurdes Swanson MD [Primary Care Provider] - 1-2 days Decision Time: 17:10
[2020-02-16 16:48] LABS: Basophils # (A) 0.1 k/uL (0-0.2); Basophils % (A) 1 %; Eosinophils # (A) 0.2 k/uL (0-0.7); Eosinophils % (A) 2 %; HCT 38.3 % (39.0-53.0); HGB 13.1 gm/dL (13.0-17.5); Lymphocytes # (A) 1.5 k/uL (1.0-4.8); Lymphocytes % (A) 21 %; MCHC 34.3 g/dL (31.0-37.0); MCV 93.1 fL (80.0-100.0); Mean Platelet Volume 7.3; Monocytes # (A) 0.4 k/uL (0-1.0); Monocytes % (A) 6 %; Neutrophils % (A) 68 %; Platelet Count 227 k/uL (150-450); RBC 4.11 m/uL (4.30-5.90); RDW 12.6 % (11.5-15.5); WBC 7.3 k/uL (3.8-10.6)
[2020-02-16 16:56] LABS: Partial Thromboplastin Time 23.1 sec (22.0-30.0)
[2020-02-16 16:57] LABS: ALT 19 U/L (4-49); AST 25 U/L (17-59); African American GFR (CKD) >90 (>60 ml/min/1.73 sqM); Albumin 3.5 g/dL (3.5-5.0); Alkaline Phosphatase 68 U/L (38-126); Anion Gap 7 mmol/L; Blood Urea Nitrogen 22 mg/dL (9-20); Calcium 8.9 mg/dL (8.4-10.2); Carbon Dioxide 23 mmol/L (22-30); Chloride 106 mmol/L (98-107); Glucose 120 mg/dL (74-99); Non-African American GFR(CKD) >90 (>60 ml/min/1.73 sqM); Potassium 4.8 mmol/L (3.5-5.1); Sodium 136 mmol/L (137-145); Total Bilirubin 0.5 mg/dL (0.2-1.3)
[2020-02-16] MEDS ORDERED: NALOXONE 0.4 MG/ML 1 ML VIAL IV PRN (17:10)
[2020-02-16] MEDS: SODIUM CHLORIDE 0.9% 1,000 ML IV SCH (21:37)
[2020-02-16 22:37] LABS: Basophils % (A) 1 %; Eosinophils # (A) 0.2 k/uL (0-0.7); Eosinophils % (A) 3 %; HCT 35.5 % (39.0-53.0); HGB 11.7 gm/dL (13.0-17.5); Lymphocytes # (A) 2.2 k/uL (1.0-4.8); Lymphocytes % (A) 30 %; MCH 31.5 pg (25.0-35.0); MCV 95.6 fL (80.0-100.0); Mean Platelet Volume 7.3; Monocytes # (A) 0.5 k/uL (0-1.0); Monocytes % (A) 6 %; Neutrophils # (A) 4.4 k/uL (1.3-7.7); Neutrophils % (A) 58 %; Platelet Count 233 k/uL (150-450); RBC 3.71 m/uL (4.30-5.90); RDW 13.1 % (11.5-15.5); WBC 7.6 k/uL (3.8-10.6)
--- NOTE | 2020-02-17 09:00 | P.GSHP ---
<Toña Castro - Last Filed: 02/17/20 08:49> History of Present Illness H&P Date: 02/17/20 CHIEF COMPLAINT: Blood in stools HISTORY OF PRESENT ILLNESS: This is a 64-year-old male with a known history of diverticulosis and recent colonoscopy on 02/10/[address] Lynn. The colonoscopy did reveal a flat villous adenoma of the ascending colon and severe sigmoid diverticulosis. Patient did have a snare polypectomy of the ascending colon. Patient also has a history of small bowel obstructions, C. diff colitis, bowel resection, cholecystectomy, hernia repair, Exploratory laparotomy with lysis of adhesions and Amanda fundoplication. Patient presents to the emergency room with complaints of blood in his stools starting around 1 AM on Friday. He did report soft normal stools after colonoscopy. He did have some crampy abdominal discomfort. He denies any nausea or vomiting. He's had no further blood in his stool since admission. He is having flatus with no blood. Hemoglobin 13.1 on admission down to 11.7. Today's hemoglobin is pending. He is currently on IV fluids. He denies any fever, chills or sweats. PAST MEDICAL HISTORY: See list. PAST SURGICAL HISTORY: See list. MEDICATIONS: See list. ALLERGIES: See list. SOCIAL HISTORY: No illicit drug use. REVIEW OF SYSTEMS: CONSTITUTIONAL: Denies fever or chills. HEENT: Denies blurred vision, vision changes, or eye pain. Denies hemoptysis ENDOCRINE: Denies heat or cold intolerance. CARDIOVASCULAR: Denies chest pain or pressure. RESPIRATORY: No shortness of breath. GASTROINTESTINAL: Denies abdominal pain. Denies nausea or vomiting. NEURO: Denies history of seizures. PSYCH: No depression or suicidal ideation HEMATOLOGIC: Denies bleeding disorders. LYMPHATIC: The patient denies any lumps and bumps around the neck. GENITOURINARY: Denies any blood in urine or increased urinary frequency. MUSCULOSKELETAL: Denies myalgias. Denies joint swelling. Denies decreased range of motion beyond patients baseline. SKIN: Denies pruitis. Denies rash. PHYSICAL EXAM: VITAL SIGNS: Reviewed GENERAL: Well-developed in no acute distress. HEENT: No sclera icterus. Extraocular movements grossly intact. Moist buccal mucosa. Head is atraumatic, normocephalic. Hears conversational speech. No nasal dra2. Recent colonoscopy on 02/10/2020 NECK: Supple without lymphadenopathy. CHEST: Non-labored respirations and equal bilateral excursions. CARDIOVASCULAR: Palpable 2+ radial pulses. ABDOMEN: Soft. Nondistended. Nontender MUSCULOSKELETAL: No clubbing or cyanosis. NEUROLOGIC: No focal or lateralizing signs. Cranial nerves II through XII grossly intact. PSYCH: Appropriate affect. Alert and oriented to person, place and time. SKIN: Well perfused. Good skin turgor. LABORATORY DATA: WBC 7.6 hemoglobin 13.1 down to 11.7 platelets 233 IMAGING: ASSESSMENT: 1. Diverticular bleed likely the cause of patient's blood in stool 2. Recent Colonoscopy on 02/10/2020 that did reveal a flat villous adenoma of the ascending colon and severe sigmoid diverticulosis. Status post polypectomy 3. History of diverticulosis 4. History of small bowel obstruction 5. History of bowel resection 6. History of exploratory laparotomy with lysis of adhesions PLAN: -Continue IV fluids -Discussed dietary modifications for diverticulosis -Consult placed for medical management -Continue to monitor hemoglobin -If hemoglobin is stable anticipate discharge home later today Physician Golf Caddie note has been reviewed by physician. Signing provider agrees with the documented findings, assessment, and plan of care. Past Medical History Past Medical History: Cancer, Deep Vein Thrombosis (DVT), GERD/Reflux, Hyperlipidemia, Pneumonia Additional Past Medical History / Comment(s): SBOs, L lower leg DVT, blood clot behind R eye, basal skin cancer with removals, pneumonia with SIRS, sinus problems, low back pain, L foot plantar fascitis, urine flow issues at times, p ast hiatal hernia-(sx) History of Any Multi-Drug Resistant Organisms: C-DIFF Date of last positivie culture/infection: 2009 MDRO Source:: stool Past Surgical History: Adenoidectomy, Bowel Resection, Cholecystectomy, Hernia Repair, Tonsillectomy Additional Past Surgical History / Comment(s): Exploratory lap with lysis of adhesions, small bowel decompression, amanda fundiplication, EGD, colonoscopies/benign polypectomies, T&A twice, skin cancer removals, Past Anesthesia/Blood Transfusion Reactions: No Reported Reaction Past Psychological History: No Psychological Hx Reported Additional Psychological History / Comment(s): . Smoking Status: Never smoker Past Alcohol Use History: None Reported Past Drug Use History: None Reported Additional Drug Use History / Comment(s): . - Past Family History Mother Family Medical History: Cancer, Diabetes Mellitus Additional Family Medical History / Comment(s): Emphysema, heart problems, COLON CANCER. Father Additional Family Medical History / Comment(s): COLON CA LIVER CA,MULTIPLE MYELOMA, bone cancer Medications and Allergies Home Medications Medication Instructions Recorded Confirmed Type Docusate [Colace] 100 mg PO BID@0100,1500 01/19/19 02/16/20 History Aspirin EC [Ecotrin Low Dose] 81 mg PO DAILY@1500 09/09/19 02/16/20 History Calcium 1500mg 1 tab PO Q48H 02/16/20 02/16/20 History Fish Oil/Dha/Epa [Fish Oil 1,200 1 cap PO BID@0100,1500 02/16/20 02/16/20 History mg Fish Oil] [place] 1200mg 1 tab PO BID@0100,1500 02/16/20 02/16/20 History Simvastatin [Zocor] 20 mg PO DAILY@1500 02/16/20 02/16/20 History Spectro Multivitamin 2 tab PO BID@0100,1500 02/16/20 02/16/20 History Vitamin C 4000mg 4,000 mg PO BID@0100,1500 02/16/20 02/16/20 History Vitamin D3 10,000iu 10,000 unit PO DAILY@1500 02/16/20 02/16/20 History Vitamin K-2 1 tab PO DAILY@1500 02/16/20 02/16/20 History Allergies Allergy/AdvReac Type Severity Reaction Status Date / Time morphine Allergy Rash/Hives Verified 02/16/20 17:40 Surgical - Exam Vital Signs Temp Pulse Resp BP Pulse Ox 98.4 F 88 16 102/73 96 02/16/20 16:03 02/16/20 16:03 02/16/20 16:03 02/16/20 16:03 02/16/20 16:03 Results - Labs 02/16/20 22:26 02/16/20 16:30 Abnormal Lab Results - Last 24 Hours (Table) 02/16/20 02/16/20 02/16/20 Range/Units 16:30 16:30 22:26 RBC 4.11 L 3.71 L (4.30-5.90) m/uL Hgb 11.7 L (13.0-17.5) gm/dL Hct 38.3 L 35.5 L (39.0-53.0) % Sodium 136 L (137-145) mmol/L BUN 22 H (9-20) mg/dL Glucose 120 H (74-99) mg/dL Total Protein 6.0 L (6.3-8.2) g/dL Diabetes panel 02/16/20 Range/Units 16:30 Sodium 136 L (137-145) mmol/L Potassium 4.8 (3.5-5.1) mmol/L Chloride 106 (98-107) mmol/L Carbon Dioxide 23 (22-30) mmol/L BUN 22 H (9-20) mg/dL Creatinine 0.79 (0.66-1.25) mg/dL Glucose 120 H (74-99) mg/dL Calcium 8.9 (8.4-10.2) mg/dL AST 25 (17-59) U/L ALT 19 (4-49) U/L Alkaline Phosphatase 68 (38-126) U/L Total Protein 6.0 L (6.3-8.2) g/dL Albumin 3.5 (3.5-5.0) g/dL Calcium panel 02/16/20 Range/Units 16:30 Calcium 8.9 (8.4-10.2) mg/dL Albumin 3.5 (3.5-5.0) g/dL Pituitary panel 02/16/20 Range/Units 16:30 Sodium 136 L (137-145) mmol/L Potassium 4.8 (3.5-5.1) mmol/L Chloride 106 (98-107) mmol/L Carbon Dioxide 23 (22-30) mmol/L BUN 22 H (9-20) mg/dL Creatinine 0.79 (0.66-1.25) mg/dL Glucose 120 H (74-99) mg/dL Calcium 8.9 (8.4-10.2) mg/dL Adrenal panel 02/16/20 Range/Units 16:30 Sodium 136 L (137-145) mmol/L Potassium 4.8 (3.5-5.1) mmol/L Chloride 106 (98-107) mmol/L Carbon Dioxide 23 (22-30) mmol/L BUN 22 H (9-20) mg/dL Creatinine 0.79 (0.66-1.25) mg/dL Glucose 120 H (74-99) mg/dL Calcium 8.9 (8.4-10.2) mg/dL Total Bilirubin 0.5 (0.2-1.3) mg/dL AST 25 (17-59) U/L ALT 19 (4-49) U/L Alkaline Phosphatase 68 (38-126) U/L Total Protein 6.0 L (6.3-8.2) g/dL Albumin 3.5 (3.5-5.0) g/dL <Trinh Lynn N - Last Filed: 02/17/20 22:22> History of Present Illness Patient seen and evaluated with above. Please see additional documentation. HISTORY OF PRESENT ILLNESS: The patient is a 64-year-old male status post lower endoscopy over 1 week ago. Reports immediately his colonoscopy was doing well. He did report developing hard bowel movements. He has changed his diet to include high-protein low-carb diet and salads. As of yesterday, he developed ab dominal cramping followed by large rectal bleeding. He reports after the bleeding, his lower abdominal cramping did improve. No previous episodes. He has pre-existing history of diverticulitis. On colonoscopy, findings were consistent with severe diverticulosis of the sigmoid colon. Patient denies any further bleeding since admission. Hemoglobin was on admission, 13.1. Hemoglobin is down to 10.8. No reports of dizziness or syncopal episodes. He is admitted secondary to acute rectal bleeding PAST MEDICAL HISTORY: See list and reviewed PAST SURGICAL HISTORY: See list and reviewed MEDICATIONS: See list and reviewed ALLERGIES: See list and reviewed SOCIAL HISTORY: See list and reviewed FAMILY HISTORY: See list and reviewed REVIEW OF ORGAN SYSTEMS: CONSTITUTIONAL: No fevers or chills. EYES: Denies any trouble with vision. No glasses. HEENT: No difficulties with hearing. No nosebleeds. No difficulty swallowing. RESPIRATORY: Past pneumonia. Denies any troubles with breathing or dyspnea on exertion. CARDIOVASCULAR: Denies any chest pain, palpitations, or recent heart attacks. GASTROINTESTINAL: Denies fatty food intolerance. Has change in bowel habits and gas bloat. GENITOURINARY: Denies any blood in urine or increased urinary frequency. NEUROLOGICAL: Denies any numbness or tingling along the distal extremities. No seizure disorders or headaches. MUSCULOSKELETAL: Has back pain, stiffness or joint arthritis. SKIN: Past skin cancer. No rash. PSYCHIATRIC: Denies current depression or suicidal thoughts. ENDOCRINE: Denies current thyroid disorders. Denies any blood sugar glucose intolerance. HEME/LYMPHATIC: Denies any lumps and bumps around the neck. Past deep venous thrombosis. ALLERGY/IMMUNOLOGY: No immunoglobulin therapy. No immune deficiencies. BREAST: Denies current breast lumps, pain or nipple discharge. PHYSICAL EXAM: VITALS: Reviewed CONSTITUTIONAL: Well developed and in no acute distress. EYES: Conjuctivae without sclera icterus. Pupils are equally round and reactive to light. Extraocular movements grossly intact. HEAD, EARS, NOSE, THROAT: Moist buccal mucosa. Head is atraumatic, normocephalic. Hears conversational speech. No nasal drainage. RESPIRATORY: Non-labored respirations and equal bilateral excursions. No gross wheezes. CARDIOVASCULAR: Regular rate and rhythm. Extremities without moderate edema. Palpable 2+ radial pulses. ABDOMEN: Soft. Non-tender. Nondistended. LYMPH: No neck lymphadenopathy. No axillary lymphadenopathy. MUSCULOSKELETAL: Nail and fingers with good capillary refill. SKIN: Warm and well perfused with good skin turgor. NEUROLOGIC: Cranial nerves II through XII grossly intact. Sensation upper and extremities intact. No focal or lateralizing signs. PSYCH: Appropriate affect. Alert and oriented to person, place and time. Displays appropriate insight. CLINCAL LABS: Reviewed. Initial hemoglobin 13.1 down 10.8. RECORDS: Pathology from colonoscopy confirms adenoma, ascending colon REPORT: Colonoscopy report reviewed consistent with severe sigmoid diverticulosis including adenoma with ascending colon ASSESSMENT: 1. Acute blood loss anemia due to bleeding diverticulosis of the sigmoid colon PLAN: 1. Recommend IV fluid hydration 2. Monitor hemoglobin. Usually diverticular bleed is self-limiting. 3. May discharge once tolerating diet and hemoglobin is stable 4. Per patient request, he would like to defer any surgical intervention Surgical - Exam Vital Signs Temp Pulse Resp BP Pulse Ox 98.4 F 88 16 102/73 96 02/16/20 16:03 02/16/20 16:03 02/16/20 16:03 02/16/20 16:03 02/16/20 16:03 Results - Labs 02/17/20 14:33 02/17/20 08:42 Abnormal Lab Results - Last 24 Hours (Table) 02/16/20 02/17/20 02/17/20 Range/Units 22:26 08:42 08:42 RBC 3.71 L 3.28 L (4.30-5.90) m/uL Hgb 11.7 L 10.8 L (13.0-17.5) gm/dL Hct 35.5 L 30.9 L (39.0-53.0) % Sodium 136 L (137-145) mmol/L Glucose 141 H (74-99) mg/dL Calcium 8.0 L (8.4-10.2) mg/dL 02/17/20 Range/Units 14:33 RBC 3.36 L (4.30-5.90) m/uL Hgb 10.7 L (13.0-17.5) gm/dL Hct 32.3 L (39.0-53.0) % Sodium (137-145) mmol/L Glucose (74-99) mg/dL Calcium (8.4-10.2) mg/dL Diabetes panel 02/17/20 Range/Units 08:42 Sodium 136 L (137-145) mmol/L Potassium 3.8 (3.5-5.1) mmol/L Chloride 107 (98-107) mmol/L Carbon Dioxide 23 (22-30) mmol/L BUN 14 (9-20) mg/dL Creatinine 0.68 (0.66-1.25) mg/dL Glucose 141 H (74-99) mg/dL Calcium 8.0 L (8.4-10.2) mg/dL Calcium panel 02/17/20 Range/Units 08:42 Calcium 8.0 L (8.4-10.2) mg/dL Pituitary panel 02/17/20 Range/Units 08:42 Sodium 136 L (137-145) mmol/L Potassium 3.8 (3.5-5.1) mmol/L Chloride 107 (98-107) mmol/L Carbon Dioxide 23 (22-30) mmol/L BUN 14 (9-20) mg/dL Creatinine 0.68 (0.66-1.25) mg/dL Glucose 141 H (74-99) mg/dL Calcium 8.0 L (8.4-10.2) mg/dL Adrenal panel 02/17/20 Range/Units 08:42 Sodium 136 L (137-145) mmol/L Potassium 3.8 (3.5-5.1) mmol/L Chloride 107 (98-107) mmol/L Carbon Dioxide 23 (22-30) mmol/L BUN 14 (9-20) mg/dL Creatinine 0.68 (0.66-1.25) mg/dL Glucose 141 H (74-99) mg/dL Calcium 8.0 L (8.4-10.2) mg/dL Assessment and Plan (1) Lower GI hemorrhage Current Visit: Yes Status: Acute Code(s): K92.2 - GASTROINTESTINAL HEMORRHAGE, UNSPECIFIED SNOMED Code(s): 76232309 (2) Abdominal pain Current Visit: No Status: Acute Code(s): R10.9 - UNSPECIFIED ABDOMINAL PAIN SNOMED Code(s): 60067324 (3) Diverticulosis large intestine w/o perforation or abscess w/bleeding Current Visit: No Status: Acute Code(s): K57.31 - DVRTCLOS OF LG INT W/O PERFORATION OR ABSCESS W BLEEDING SNOMED Code(s): 4650817
[2020-02-17] MEDS: PANTOPRAZOLE 40 MG/10 ML VIAL IV SCH (09:05)
[2020-02-17] MEDS: SODIUM CHLORIDE 0.9% 1,000 ML IV SCH ×2 (09:06→22:26)
[2020-02-17 09:29] LABS: Basophils % (A) 1 %; Eosinophils # (A) 0.3 k/uL (0-0.7); Eosinophils % (A) 5 %; HCT 30.9 % (39.0-53.0); HGB 10.8 gm/dL (13.0-17.5); Lymphocytes # (A) 1.5 k/uL (1.0-4.8); Lymphocytes % (A) 28 %; MCH 32.8 pg (25.0-35.0); MCHC 34.8 g/dL (31.0-37.0); MCV 94.2 fL (80.0-100.0); Mean Platelet Volume 7.3; Monocytes # (A) 0.4 k/uL (0-1.0); Monocytes % (A) 7 %; Neutrophils # (A) 3.1 k/uL (1.3-7.7); Neutrophils % (A) 57 %; Platelet Count 203 k/uL (150-450); RBC 3.28 m/uL (4.30-5.90); RDW 12.7 % (11.5-15.5); WBC 5.5 k/uL (3.8-10.6)
[2020-02-17 09:45] LABS: African American GFR (CKD) >90 (>60 ml/min/1.73 sqM); Anion Gap 6 mmol/L; Blood Urea Nitrogen 14 mg/dL (9-20); Carbon Dioxide 23 mmol/L (22-30); Chloride 107 mmol/L (98-107); Glucose 141 mg/dL (74-99); Non-African American GFR(CKD) >90 (>60 ml/min/1.73 sqM); Potassium 3.8 mmol/L (3.5-5.1); Sodium 136 mmol/L (137-145)
[2020-02-17 15:56] LABS: HCT 32.3 % (39.0-53.0); HGB 10.7 gm/dL (13.0-17.5); MCH 31.8 pg (25.0-35.0); MCV 96.2 fL (80.0-100.0); Mean Platelet Volume 7.5; Platelet Count 201 k/uL (150-450); RBC 3.36 m/uL (4.30-5.90); RDW 13.1 % (11.5-15.5); WBC 6.1 k/uL (3.8-10.6)
--- NOTE | 2020-02-17 17:09 | P.CONS ---
History of Present Illness - Reason for Consult Consult date: 02/17/20 - Chief Complaint Rectal bleeding - History of Present Illness Saw De Anda, is a 64-year-old male who had a recent colonoscopy on 02/10/[address] Lynn, which revealed a flat villous adenoma of the ascending colon and severe sigmoid diverticulosis. He had a snare polypectomy of the ascending colon. Patient presented to the emergency room with complaints of blood in his stools starting around 1 AM on Friday. He did report soft normal stools after colonoscopy. He did have some crampy abdominal discomfort. He denies any nausea or vomiting. He's had no further blood in his stool since admission. Patient has a known history of hyperlipidemia, small bowel obstructions, C. diff colitis, bowel resection, cholecystectomy, hernia repair, Exploratory laparotomy with lysis of adhesions and Yamileth fundoplication. He was evaluated in emergency room his vital examination on presentation revealed a temperature of 98.4 pulse 88 respirations 16 blood pressure 102/73 pulse ox 96% on room air, his white blood count was 7.3 hemoglobin 13.1 platelet count 227 INR 1.0 BUN 22 creatinine 0.79 EKG revealed normal sinus rhythm with pulmonary disease pattern. On review of systems patient is alert and oriented 3 he is denying any symptoms at this time there is no fever or chills no headache or dizziness no chest pain no shortness of breath no cough no nausea or vomiting no abdominal pain no diarrhea no blood in the stools since admission no burning with urination no frequency or urgency no hematuria no numbness or weakness in any of the extremities no change in vision speech or gait. Past Medical History Past Medical History: Cancer, Deep Vein Thrombosis (DVT), GERD/Reflux, Hyperlipidemia, Pneumonia Additional Past Medical History / Comment(s): SBOs, L lower leg DVT, blood clot behind R eye, basal skin cancer with removals, pneumonia with SIRS, sinus problems, low back pain, L foot plantar fascitis, urine flow issues at times, past hiatal hernia-(sx) History of Any Multi-Drug Resistant Organisms: C-DIFF Year Discovered:: 2009 MDRO Source:: stool Past Surgical History: Adenoidectomy, Bowel Resection, Cholecystectomy, Hernia Repair, Tonsillectomy Additional Past Surgical History / Comment(s): Exploratory lap with lysis of adhesions, small bowel decompression, yamileth fundiplication, EGD, colonoscopies/benign polypectomies, T&A twice, skin cancer removals, Past Anesthesia/Blood Transfusion Reactions: No Reported Reaction Past Psychological History: No Psychological Hx Reported Additional Psychological History / Comment(s): . Smoking Status: Never smoker Past Alcohol Use History: None Reported Past Drug Use History: None Reported Additional Drug Use History / Comment(s): . - Past Family History Mother Family Medical History: Cancer, Diabetes Mellitus Additional Family Medical History / Comment(s): Emphysema, heart problems, COLON CANCER. Father Additional Family Medical History / Comment(s): COLON CA LIVER CA,MULTIPLE MYELOMA, bone cancer Medications and Allergies Home Medications Medication Instructions Recorded Confirmed Type Docusate [Colace] 100 mg PO BID@0100,1500 01/19/19 02/16/20 History Aspirin EC [Ecotrin Low Dose] 81 mg PO DAILY@1500 09/09/19 02/16/20 History Calcium 1500mg 1 tab PO Q48H 02/16/20 02/16/20 History Fish Oil/Dha/Epa [Fish Oil 1,200 1 cap PO BID@0100,1500 02/16/20 02/16/20 History mg Fish Oil] Lion's José 1200mg 1 tab PO BID@0100,1500 02/16/20 02/16/20 History Simvastatin [Zocor] 20 mg PO DAILY@1500 02/16/20 02/16/20 History Spectro Multivitamin 2 tab PO BID@0100,1500 02/16/20 02/16/20 History Vitamin C 4000mg 4,000 mg PO BID@0100,1500 02/16/20 02/16/20 History Vitamin D3 10,000iu 10,000 unit PO DAILY@1500 02/16/20 02/16/20 History Vitamin K-2 1 tab PO DAILY@1500 02/16/20 02/16/20 History Allergies Allergy/AdvReac Type Severity Reaction Status Date / Time morphine Allergy Rash/Hives Verified 02/16/20 17:40 Physical Exam Vitals: Vital Signs Temp Pulse Pulse Resp BP BP Pulse Ox 02/17/20 02:51 97.9 F 72 15 106/53 94 L 02/16/20 20:37 98.1 F 79 16 118/62 94 L 02/16/20 19:00 73 16 106/60 96 02/16/20 17:00 87 18 102/73 95 02/16/20 16:03 98.4 F 88 16 102/73 96 Intake and Output 02/16/20 02/17/20 02/17/20 22:59 06:59 14:59 Intake Total 240 Balance 240 Intake: Oral 240 Other: Voiding Method Toilet Toilet # Voids 1 Weight 108.862 kg In general patient is alert and oriented 3 in no apparent distress HEENT head normocephalic and atraumatic Neck is supple no JVD no goiter no lymphadenopathy Chest exam reveals a few scattered rhonchi no wheezing Cardiac exam reveals regular heart sounds S1 and S2 no gallops no murmurs Abdomen is soft nontender no organomegaly with normal bowel sounds Extremity exam reveals no edema no cyanosis or clubbing Neurological examination reveals no gross focal deficits Results CBC & Chem 7: 02/17/20 14:33 02/17/20 08:42 Labs: Abnormal Lab Results - Last 24 Hours (Table) 02/16/20 02/16/20 02/16/20 Range/Units 16:30 16:30 22:26 RBC 4.11 L 3.71 L (4.30-5.90) m/uL Hgb 11.7 L (13.0-17.5) gm/dL Hct 38.3 L 35.5 L (39.0-53.0) % Sodium 136 L (137-145) mmol/L BUN 22 H (9-20) mg/dL Glucose 120 H (74-99) mg/dL Total Protein 6.0 L (6.3-8.2) g/dL Assessment and Plan Plan: 1. Rectal bleeding likely related to diverticulosis 2. Recent Colonoscopy on 02/10/2020 that revealed a flat villous adenoma of the ascending colon and severe sigmoid diverticulosis. Status post polypectomy 3. History of hyperlipidemia 4. Previous history of small bowel obstruction, with partial bowel resection 5. History of exploratory laparotomy with lysis of adhesions. Medication reviewed will reorder At this time will monitor to assess if there is any further GI bleeding Will follow during this admission for medical management
[2020-02-18 08:01] LABS: Basophils % (A) 1 %; Eosinophils # (A) 0.3 k/uL (0-0.7); Eosinophils % (A) 6 %; HCT 33.2 % (39.0-53.0); HGB 10.6 gm/dL (13.0-17.5); Lymphocytes # (A) 1.8 k/uL (1.0-4.8); Lymphocytes % (A) 33 %; MCH 30.9 pg (25.0-35.0); MCHC 32.1 g/dL (31.0-37.0); MCV 96.4 fL (80.0-100.0); Mean Platelet Volume 7.4; Monocytes # (A) 0.4 k/uL (0-1.0); Monocytes % (A) 7 %; Neutrophils # (A) 2.8 k/uL (1.3-7.7); Neutrophils % (A) 50 %; Platelet Count 234 k/uL (150-450); RBC 3.44 m/uL (4.30-5.90); RDW 13.3 % (11.5-15.5); WBC 5.5 k/uL (3.8-10.6)
[2020-02-18 08:12] LABS: ALT 18 U/L (4-49); AST 21 U/L (17-59); African American GFR (CKD) >90 (>60 ml/min/1.73 sqM); Albumin 3.2 g/dL (3.5-5.0); Alkaline Phosphatase 55 U/L (38-126); Anion Gap 2 mmol/L; Blood Urea Nitrogen 8 mg/dL (9-20); Calcium 8.3 mg/dL (8.4-10.2); Carbon Dioxide 27 mmol/L (22-30); Chloride 109 mmol/L (98-107); Glucose 106 mg/dL (74-99); Non-African American GFR(CKD) >90 (>60 ml/min/1.73 sqM); Sodium 138 mmol/L (137-145); Total Bilirubin 0.5 mg/dL (0.2-1.3); Total Protein 5.6 g/dL (6.3-8.2)
[2020-02-18] MEDS: PANTOPRAZOLE 40 MG/10 ML VIAL IV SCH (09:27)
--- NOTE | 2020-02-18 10:24 | P.PN ---
Subjective Progress Note Date: 02/18/20 Saw De Anda, is a 64-year-old male who had a recent colonoscopy on 02/10/[address] Lynn, which revealed a flat villous adenoma of the ascending colon and severe sigmoid diverticulosis. He had a snare polypectomy of the ascending colon. Patient presented to the emergency room with complaints of blood in his stools starting around 1 AM on Friday. He did report soft normal stools after colonoscopy. He did have some crampy abdominal discomfort. He denies any nausea or vomiting. He's had no further blood in his stool since admission. Patient has a known history of hyperlipidemia, small bowel obstructions, C. diff colitis, bowel resection, cholecystectomy, hernia repair, Exploratory laparotomy with lysis of adhesions and Amanda fundoplication. He was evaluated in emergency room his vital examination on presentation revealed a temperature of 98.4 pulse 88 respirations 16 blood pressure 102/73 pulse ox 96% on room air, his white blood count was 7.3 hemoglobin 13.1 platelet count 227 INR 1.0 BUN 22 creatinine 0.79 EKG revealed normal sinus rhythm with pulmonary disease pattern. On review of systems patient is alert and oriented 3 he is denying any symptoms at this time there is no fever or chills no headache or dizziness no chest pain no shortness of breath no cough no nausea or vomiting no abdominal pain no diarrhea no blood in the stools since admission no burning with urination no frequency or urgency no hematuria no numbness or weakness in any of the extremities no change in vision speech or gait. On 02/18/2020 patient was seen and examined in the observation unit he is alert and oriented 3 in no distress he denies any complaints at this time no new episodes of rectal bleeding no bowel movements since admission there is no fever or chills no headache or dizziness no chest pain no shortness of breath no cough no nausea or vomiting no abdominal pain no diarrhea no burning with urination no frequency or urgency and no hematuria. Patient is stable, without any complaints this admission hemoglobin is stable at 10.6. He will be evaluated by surgery for possible discharge to home today Objective - Vital Signs Vital signs: Vital Signs Temp 97.9 F 02/18/20 02:20 Pulse 67 02/18/20 02:20 Resp 15 02/18/20 02:20 BP 94/59 02/18/20 02:20 Pulse Ox 95 02/18/20 02:20 Intake & Output 02/17/20 02/18/20 02/18/20 18:59 06:59 18:59 Intake Total 200 Balance 200 Intake: Other 200 Other: Voiding Method Toilet # Voids 2 2 - Exam In general patient is alert and oriented 3 in no apparent distress HEENT head normocephalic and atraumatic Neck is supple no JVD no goiter no lymphadenopathy Chest exam reveals a few scattered rhonchi no wheezing Cardiac exam reveals regular heart sounds S1 and S2 no gallops no murmurs Abdomen is soft nontender no organomegaly with normal bowel sounds Extremity exam reveals no edema no cyanosis or clubbing Neurological examination reveals no gross focal deficits - Labs CBC & Chem 7: 02/18/20 07:18 02/18/20 07:18 Labs: Abnormal Lab Results - Last 24 Hours (Table) 02/17/20 02/18/20 02/18/20 Range/Units 14:33 07:18 07:18 RBC 3.36 L 3.44 L (4.30-5.90) m/uL Hgb 10.7 L 10.6 L (13.0-17.5) gm/dL Hct 32.3 L 33.2 L (39.0-53.0) % Chloride 109 H (98-107) mmol/L BUN 8 L (9-20) mg/dL Glucose 106 H (74-99) mg/dL Calcium 8.3 L (8.4-10.2) mg/dL Total Protein 5.6 L (6.3-8.2) g/dL Albumin 3.2 L (3.5-5.0) g/dL Assessment and Plan Plan: 1. Rectal bleeding likely related to diverticulosis 2. Recent Colonoscopy on 02/10/2020 that revealed a flat villous adenoma of the ascending colon and severe sigmoid diverticulosis. Status post polypectomy 3. History of hyperlipidemia 4. Previous history of small bowel obstruction, with partial bowel resection 5. History of exploratory laparotomy with lysis of adhesions. Medication reviewed will reorder At this time will monitor to assess if there is any further GI bleeding Will follow during this admission for medical management
--- NOTE | 2020-02-18 12:12 | P.PN ---
<TeriomariToña - Last Filed: 02/18/20 12:07> Subjective Progress Note Date: 02/18/20 CHIEF COMPLAINT: Diverticular bleed HISTORY OF PRESENT ILLNESS: Patient had been doing well this morning. He had been passing gas without any bleeding or abdominal pain. He ate an ice cream and has now had 3 maroon-colored stools with on the last hour. He is scheduled for an EGD later today with Dr. Lynn. He is currently nothing by mouth. And repeat CBC has been ordered. He is afebrile. Hemoglobin is 10.6 PHYSICAL EXAM: VITAL SIGNS: Reviewed GENERAL: Well-developed in no acute distress. HEENT: No sclera icterus. Extraocular movements grossly intact. Moist buccal mucosa. Head is atraumatic, normocephalic. Hears conversational speech. No nasal drainage. NECK: Supple without lymphadenopathy. CHEST: Non-labored respirations and equal bilateral excursions. CARDIOVASCULAR: Palpable 2+ radial pulses. ABDOMEN: Soft. Nondistended. Nontender. MUSCULOSKELETAL: No clubbing or cyanosis. NEUROLOGIC: No focal or lateralizing signs. Cranial nerves II through XII grossly intact. PSYCH: Appropriate affect. Alert and oriented to person, place and time. SKIN: Well perfused. Good skin turgor. ASSESSMENT: 1. Acute blood loss anemia due to bleeding diverticulosis of the sigmoid colon 2. Recent Colonoscopy on 02/10/2020 that did reveal a flat villous adenoma of the ascending colon and severe sigmoid diverticulosis. Status post polypectomy 3. History of diverticulosis 4. History of small bowel obstruction 5. History of bowel resection 6. History of exploratory laparotomy with lysis of adhesions PLAN: -Patient scheduled for EGD today with Dr. Lynn due to having 3 maroon- colored stools with the last hour -Check CBC stat -Keep patient nothing by mouth -Continue IV fluids -Continue IV Protonix Physician [employer] note has been reviewed by physician. Signing provider agrees with the documented findings, assessment, and plan of care. Objective - Vital Signs Vital signs: Vital Signs Temp 97.6 F 02/18/20 09:00 Pulse 80 02/18/20 09:00 Resp 18 02/18/20 09:00 BP 118/65 02/18/20 09:00 Pulse Ox 95 02/18/20 02:20 Intake & Output 1002/18/20 02/18/20 18:59 06:59 18:59 Intake Total 200 Balance 200 Intake: Other 200 Other: Voiding Method Toilet Toilet # Voids 2 2 1 - Labs CBC & Chem 7: 02/18/20 07:18 02/18/20 07:18 Labs: Abnormal Lab Results - Last 24 Hours (Table) 02/17/20 02/18/20 02/18/20 Range/Units 14:33 07:18 07:18 RBC 3.36 L 3.44 L (4.30-5.90) m/uL Hgb 10.7 L 10.6 L (13.0-17.5) gm/dL Hct 32.3 L 33.2 L (39.0-53.0) % Chloride 109 H (98-107) mmol/L BUN 8 L (9-20) mg/dL Glucose 106 H (74-99) mg/dL Calcium 8.3 L (8.4-10.2) mg/dL Total Protein 5.6 L (6.3-8.2) g/dL Albumin 3.2 L (3.5-5.0) g/dL <Trinh Lynn N - Last Filed: 02/18/20 19:30> Subjective As above. Please see additional documentation below. HISTORY OF PRESENT ILLNESS: The patient is a 64-year-old male who presented with acute rectal bleeding. He has history of sigmoid diverticulosis. He was stable yesterday. This morning after eating ice cream, he had 3 dark stools. He reported epigastric pain. REVIEW OF ORGAN SYSTEMS: No fevers or chills. No chest pain. PHYSICAL EXAM: VITALS: Reviewed CONSTITUTIONAL: Well developed and in no acute distress. EYES: Conjuctivae without sclera icterus. Pupils are equally round and reactive to light. Extraocular movements grossly intact. HEAD, EARS, NOSE, THROAT: Moist buccal mucosa. Head is atraumatic, normocephalic. Hears conversational speech. No nasal drainage. RESPIRATORY: Non-labored respirations and equal bilateral excursions. No gross wheezes. CARDIOVASCULAR: Regular rate and rhythm. Palpable 2+ radial pulses. ABDOMEN: Soft. No peritonitis. MUSCULOSKELETAL: Nail and fingers with good capillary refill. SKIN: Warm and well perfused with good skin turgor. NEUROLOGIC: Cranial nerves II through XII grossly intact. Sensation upper and extremities intact. No focal or lateralizing signs. PSYCH: Appropriate affect. Alert and oriented to person, place and time. Displays appropriate insight. CLINCAL LABS: Reviewed. Initial hemoglobin 13.1 down 10.8 to 10.6. ASSESSMENT: 1. Acute blood loss anemia 2. History of diverticulosis with bleeding 3. Hematochezia, possible upper GI source PLAN: 1. He reports his symptoms had immediate onset following eating ice cream with epigastric pain, new features. 2. Recommend upper endoscopy for evaluation of gastric ulcers 3. Full admission secondary to recurrent bleed Objective - Vital Signs Vital signs: Vital Signs Temp 97.6 F 02/18/20 15:00 Pulse 78 02/18/20 15:00 Resp 18 02/18/20 15:00 BP 104/70 02/18/20 15:00 Pulse Ox 99 02/18/20 15:00 Intake & Output 02/18/20 02/18/20 02/19/20 06:59 18:59 06:59 Intake Total 500 Balance 500 Weight 108.862 kg Intake: Other 500 Other: Voiding Method Toilet Toilet # Voids 2 1 - Labs CBC & Chem 7: 02/18/20 12:08 02/18/20 07:18 Labs: Abnormal Lab Results - Last 24 Hours (Table) 02/18/20 02/18/20 02/18/20 Range/Units 07:18 07:18 12:08 RBC 3.44 L 3.39 L (4.30-5.90) m/uL Hgb 10.6 L 10.9 L (13.0-17.5) gm/dL Hct 33.2 L 32.2 L (39.0-53.0) % Chloride 109 H (98-107) mmol/L BUN 8 L (9-20) mg/dL Glucose 106 H (74-99) mg/dL Calcium 8.3 L (8.4-10.2) mg/dL Total Protein 5.6 L (6.3-8.2) g/dL Albumin 3.2 L (3.5-5.0) g/dL Assessment and Plan (1) Lower GI hemorrhage Current Visit: Yes Status: Acute Code(s): K92.2 - GASTROINTESTINAL HEMORRHAGE, UNSPECIFIED SNOMED Code(s): 83987139 (2) Abdominal pain Current Visit: No Status: Acute Code(s): R10.9 - UNSPECIFIED ABDOMINAL PAIN SNOMED Code(s): 41545968 (3) Diverticulosis large intestine w/o perforation or abscess w/bleeding Current Visit: No Status: Acute Code(s): K57.31 - DVRTCLOS OF LG INT W/O PERFORATION OR ABSCESS W BLEEDING SNOMED Code(s): 9333663
[2020-02-18 12:23] LABS: Basophils % (A) 1 %; Eosinophils # (A) 0.3 k/uL (0-0.7); Eosinophils % (A) 6 %; HCT 32.2 % (39.0-53.0); HGB 10.9 gm/dL (13.0-17.5); Lymphocytes # (A) 1.8 k/uL (1.0-4.8); Lymphocytes % (A) 31 %; MCH 32.3 pg (25.0-35.0); MCV 94.9 fL (80.0-100.0); Mean Platelet Volume 7.6; Monocytes # (A) 0.4 k/uL (0-1.0); Monocytes % (A) 7 %; Neutrophils % (A) 52 %; Platelet Count 219 k/uL (150-450); RBC 3.39 m/uL (4.30-5.90); RDW 12.9 % (11.5-15.5); WBC 5.7 k/uL (3.8-10.6)
[2020-02-18 12:56] VITALS: BMI 32.5
--- NOTE | 2020-02-18 13:05 | P.PN ---
Progress Note - Text Progress Note Date: 02/18/20 Patient continues to bleed. Recommend full inpatient admission with additional work-up needed.
[2020-02-18] MEDS: ATORVASTATIN 10 MG TAB PO SCH (17:15)
[2020-02-18] MEDS: SODIUM CHLORIDE 0.9% 1,000 ML IV SCH ×2 (17:31→22:24)
[2020-02-18] MEDS ORDERED: LIDOCAINE 1% INJ 10MG/ML (20 ML MDV) ONE (19:16)
[2020-02-18] MEDS ORDERED: PROPOFOL 10 MG/ML 20 ML VIAL IV ONE (19:16)
[2020-02-18] MEDS ORDERED: IV FLUID CONTINUATION 1,000 ML IV ONE ×2 (19:20)
--- NOTE | 2020-02-18 19:55 | P.PCN ---
Date of Procedure: 02/18/20 Description of Procedure: PREOPERATIVE DIAGNOSIS: Gastrointestinal bleeding Epigastric abdominal pain Hematochezia POSTOPERATIVE DIAGNOSIS: Gastrointestinal bleeding Epigastric abdominal pain Hematochezia Gastroesophageal reflux disease. OPERATION: Esophagogastroduodenoscopy SURGEON: Trinh Lynn MD ANESTHESIA: MAC. INDICATIONS: The patient is a 64-year-old male who initially presented with lower GI bleed and complained of dark stools and epigastric pain. Upper endoscopy was offered to exclude active gastrointestinal bleeding from a upper GI source. Benefits and risks of the procedure were described. Informed consent was obtained. DESCRIPTION: The patient was brought into the endoscopy suite and laid in the left lateral decubitus position. An Olympus gastroscope was passed along the posterior oropharynx down to the distal esophagus where the squamocolumnar junction was encountered at 40 cm from the incisors. The stomach was entered and no bile reflux was found. Additional findings are listed below. The first through third portion of the duodenum was examined and unremarkable. Retroflexion of the scope confirmed Hill grade 2 lower esophageal valve. The squamocolumnar junction demonstrated LA grade A erosive esophagitis. The stomach was desufflated. The patient tolerated the procedure well. FINDINGS: Squamocolumnar junction 40 cm from the incisors. Diaphragmatic hiatus at 40 cm. Hill grade 2 lower esophageal valve. LA grade A erosive esophagitis. No active duodenitis. Chronic gastritis RECOMMENDATIONS: Upper endoscopy as needed.
[2020-02-19 07:43] LABS: Basophils % (A) 1 %; Eosinophils # (A) 0.3 k/uL (0-0.7); Eosinophils % (A) 5 %; HCT 29.6 % (39.0-53.0); HGB 9.9 gm/dL (13.0-17.5); Lymphocytes # (A) 1.6 k/uL (1.0-4.8); Lymphocytes % (A) 33 %; MCH 31.5 pg (25.0-35.0); MCHC 33.3 g/dL (31.0-37.0); MCV 94.6 fL (80.0-100.0); Mean Platelet Volume 7.2; Monocytes # (A) 0.4 k/uL (0-1.0); Monocytes % (A) 8 %; Neutrophils # (A) 2.6 k/uL (1.3-7.7); Neutrophils % (A) 51 %; Platelet Count 222 k/uL (150-450); RBC 3.13 m/uL (4.30-5.90); RDW 13.5 % (11.5-15.5)
--- NOTE | 2020-02-19 07:43 | P.PN ---
Progress Note - Text Progress Note Date: 02/19/20 The patient is eating his full liquid diet. He has had no further rectal bleeding. His EGD yesterday showed evidence of gastritis. On exam her lesser stable. Abdomen soft. He will was some 0.9. Patient will be observed and discharged home if he has no further rectal bleeding.
[2020-02-19 08:03] LABS: ALT 19 U/L (4-49); AST 22 U/L (17-59); African American GFR (CKD) >90 (>60 ml/min/1.73 sqM); Alkaline Phosphatase 52 U/L (38-126); Anion Gap 4 mmol/L; Blood Urea Nitrogen 7 mg/dL (9-20); Calcium 8.4 mg/dL (8.4-10.2); Carbon Dioxide 26 mmol/L (22-30); Chloride 108 mmol/L (98-107); Glucose 107 mg/dL (74-99); Non-African American GFR(CKD) >90 (>60 ml/min/1.73 sqM); Potassium 3.9 mmol/L (3.5-5.1); Sodium 138 mmol/L (137-145); Total Bilirubin 0.4 mg/dL (0.2-1.3); Total Protein 5.4 g/dL (6.3-8.2)
[2020-02-19] MEDS: PANTOPRAZOLE 40 MG/10 ML VIAL IV SCH (08:12)
--- NOTE | 2020-02-19 12:04 | P.PN ---
Subjective Progress Note Date: 02/19/20 Saw De Anda, is a 64-year-old male who had a recent colonoscopy on 02/10/[address] Lynn, which revealed a flat villous adenoma of the ascending colon and severe sigmoid diverticulosis. He had a snare polypectomy of the ascending colon. Patient presented to the emergency room with complaints of blood in his stools starting around 1 AM on Friday. He did report soft normal stools after colonoscopy. He did have some crampy abdominal discomfort. He denies any nausea or vomiting. He's had no further blood in his stool since admission. Patient has a known history of hyperlipidemia, small bowel obstructions, C. diff colitis, bowel resection, cholecystectomy, hernia repair, Exploratory laparotomy with lysis of adhesions and Amanda fundoplication. He was evaluated in emergency room his vital examination on presentation revealed a temperature of 98.4 pulse 88 respirations 16 blood pressure 102/73 pulse ox 96% on room air, his white blood count was 7.3 hemoglobin 13.1 platelet count 227 INR 1.0 BUN 22 creatinine 0.79 EKG revealed normal sinus rhythm with pulmonary disease pattern. On review of systems patient is alert and oriented 3 he is denying any symptoms at this time there is no fever or chills no headache or dizziness no chest pain no shortness of breath no cough no nausea or vomiting no abdominal pain no diarrhea no blood in the stools since admission no burning with urination no frequency or urgency no hematuria no numbness or weakness in any of the extremities no change in vision speech or gait. On 02/18/2020 patient was seen and examined in the observation unit he is alert and oriented 3 in no distress he denies any complaints at this time no new episodes of rectal bleeding no bowel movements since admission there is no fever or chills no headache or dizziness no chest pain no shortness of breath no cough no nausea or vomiting no abdominal pain no diarrhea no burning with urination no frequency or urgency and no hematuria. Patient is stable, without any complaints this admission hemoglobin is stable at 10.6. He will be evaluated by surgery for possible discharge to home today. On 02/19/2020 patient was seen and examined on the observation unit he is alert and oriented 3 in no distress yesterday he had 2 dark colored bowel movement and his discharge was canceled this morning hemoglobin is down from 10.9-9.9 he is alert and oriented 3 in no distress there is no fever or chills no headache or dizziness no chest pain no shortness of breath no cough no nausea or vomiting no abdominal pain no diarrhea and no urinary symptoms. Objective - Vital Signs Vital signs: Vital Signs Temp 98.1 F 02/19/20 08:08 Pulse 71 02/19/20 08:08 Resp 18 02/19/20 08:08 BP 102/63 02/19/20 08:08 Pulse Ox 97 02/19/20 08:08 Intake & Output 02/18/20 02/19/20 02/19/20 18:59 06:59 18:59 Intake Total 085 495 5912 Balance 040 360 5013 Weight 108.862 kg Intake: IV 200 Intake, IV Titration 600 Amount Sodium Chloride 0.9% 1, 600 000 ml @ 75 mls/hr IV . [id number] [facility] Rx#:[id number] Oral 200 1220 Other 500 Other: Voiding Method Toilet Toilet Toilet # Voids 1 2 - Exam In general patient is alert and oriented 3 in no apparent distress HEENT head normocephalic and atraumatic Neck is supple no JVD no goiter no lymphadenopathy Chest exam reveals a few scattered rhonchi no wheezing Cardiac exam reveals regular heart sounds S1 and S2 no gallops no murmurs Abdomen is soft nontender no organomegaly with normal bowel sounds Extremity exam reveals no edema no cyanosis or clubbing Neurological examination reveals no gross focal deficits - Labs CBC & Chem 7: 02/19/20 07:18 02/19/20 07:18 Labs: Abnormal Lab Results - Last 24 Hours (Table) 02/18/20 02/19/20 02/19/20 Range/Units 12:08 07:18 07:18 RBC 3.39 L 3.13 L (4.30-5.90) m/uL Hgb 10.9 L 9.9 L (13.0-17.5) gm/dL Hct 32.2 L 29.6 L (39.0-53.0) % Chloride 108 H (98-107) mmol/L BUN 7 L (9-20) mg/dL Glucose 107 H (74-99) mg/dL Total Protein 5.4 L (6.3-8.2) g/dL Albumin 3.0 L (3.5-5.0) g/dL Assessment and Plan Plan: 1. Rectal bleeding likely related to diverticulosis 2. Recent Colonoscopy on 02/10/2020 that revealed a flat villous adenoma of the ascending colon and severe sigmoid diverticulosis. Status post polypectomy 3. History of hyperlipidemia 4. Previous history of small bowel obstruction, with partial bowel resection 5. History of exploratory laparotomy with lysis of adhesions. Medication reviewed will reorder At this time will monitor to assess if there is any further GI bleeding Will follow during this admission for medical management. Patient will be discharged by surgery when hemoglobin is stable For DVT prophylaxis he is on SCD stockings
[2020-02-19] MEDS: SODIUM CHLORIDE 0.9% 1,000 ML IV SCH (14:42)
[2020-02-19] MEDS: ATORVASTATIN 10 MG TAB PO SCH (16:02)
[2020-02-20] MEDS: SODIUM CHLORIDE 0.9% 1,000 ML IV SCH ×2 (01:40→14:47)
[2020-02-20 07:42] LABS: Basophils % (A) 0 %; Eosinophils # (A) 0.3 k/uL (0-0.7); Eosinophils % (A) 4 %; HCT 32.8 % (39.0-53.0); HGB 11.3 gm/dL (13.0-17.5); Lymphocytes # (A) 1.4 k/uL (1.0-4.8); Lymphocytes % (A) 19 %; MCH 32.4 pg (25.0-35.0); MCHC 34.3 g/dL (31.0-37.0); MCV 94.4 fL (80.0-100.0); Mean Platelet Volume 7.5; Monocytes # (A) 0.5 k/uL (0-1.0); Monocytes % (A) 7 %; Neutrophils % (A) 68 %; Platelet Count 248 k/uL (150-450); RBC 3.48 m/uL (4.30-5.90); RDW 13.6 % (11.5-15.5); WBC 7.4 k/uL (3.8-10.6)
[2020-02-20 07:50] LABS: ALT 29 U/L (4-49); AST 28 U/L (17-59); African American GFR (CKD) >90 (>60 ml/min/1.73 sqM); Albumin 3.6 g/dL (3.5-5.0); Alkaline Phosphatase 68 U/L (38-126); Anion Gap 6 mmol/L; Blood Urea Nitrogen 11 mg/dL (9-20); Calcium 8.6 mg/dL (8.4-10.2); Carbon Dioxide 26 mmol/L (22-30); Chloride 106 mmol/L (98-107); Glucose 111 mg/dL (74-99); Non-African American GFR(CKD) >90 (>60 ml/min/1.73 sqM); Potassium 3.9 mmol/L (3.5-5.1); Sodium 138 mmol/L (137-145); Total Bilirubin 0.5 mg/dL (0.2-1.3); Total Protein 6.1 g/dL (6.3-8.2)
[2020-02-20] MEDS: PANTOPRAZOLE 40 MG/10 ML VIAL IV SCH (07:59)
--- NOTE | 2020-02-20 08:02 | P.PN ---
Progress Note - Text Progress Note Date: 02/20/20 The patient is resting comfortably in bed. He denies any abdominal pain. He denies any significant bleeding. He said some diarrhea. This anal stable at 9.1. On exam her vital signs are stable. Abdomen soft. Lower GI bleed presumed from diverticular bleeding. Patient will be observed.
[2020-02-20] MEDS: ACETAMINOPHEN TAB 500 MG TAB PO PRN ×2 (12:39→20:24)
--- NOTE | 2020-02-20 14:31 | P.PN ---
Subjective Progress Note Date: 02/20/20 Saw De Anda, is a 64-year-old male who had a recent colonoscopy on 02/10/[address] Lynn, which revealed a flat villous adenoma of the ascending colon and severe sigmoid diverticulosis. He had a snare polypectomy of the ascending colon. Patient presented to the emergency room with complaints of blood in his stools starting around 1 AM on Friday. He did report soft normal stools after colonoscopy. He did have some crampy abdominal discomfort. He denies any nausea or vomiting. He's had no further blood in his stool since admission. Patient has a known history of hyperlipidemia, small bowel obstructions, C. diff colitis, bowel resection, cholecystectomy, hernia repair, Exploratory laparotomy with lysis of adhesions and Amanda fundoplication. He was evaluated in emergency room his vital examination on presentation revealed a temperature of 98.4 pulse 88 respirations 16 blood pressure 102/73 pulse ox 96% on room air, his white blood count was 7.3 hemoglobin 13.1 platelet count 227 INR 1.0 BUN 22 creatinine 0.79 EKG revealed normal sinus rhythm with pulmonary disease pattern. On review of systems patient is alert and oriented 3 he is denying any symptoms at this time there is no fever or chills no headache or dizziness no chest pain no shortness of breath no cough no nausea or vomiting no abdominal pain no diarrhea no blood in the stools since admission no burning with urination no frequency or urgency no hematuria no numbness or weakness in any of the extremities no change in vision speech or gait. On 02/18/2020 patient was seen and examined in the observation unit he is alert and oriented 3 in no distress he denies any complaints at this time no new episodes of rectal bleeding no bowel movements since admission there is no fever or chills no headache or dizziness no chest pain no shortness of breath no cough no nausea or vomiting no abdominal pain no diarrhea no burning with urination no frequency or urgency and no hematuria. Patient is stable, without any complaints this admission hemoglobin is stable at 10.6. He will be evaluated by surgery for possible discharge to home today. On 02/19/2020 patient was seen and examined on the observation unit he is alert and oriented 3 in no distress yesterday he had 2 dark colored bowel movement and his discharge was canceled this morning hemoglobin is down from 10.9-9.9 he is alert and oriented 3 in no distress there is no fever or chills no headache or dizziness no chest pain no shortness of breath no cough no nausea or vomiting no abdominal pain no diarrhea and no urinary symptoms. On 02/20/2020 patient was seen and examined in the observation unit he is alert and oriented 3 in no apparent distress he is complaining of abdominal pain in the epigastric area and right upper quadrant area he had 3 bowel movements today without any bleeding otherwise he denies any complaints there is no fever or chills no headache or dizziness no chest pain no shortness of breath no cough no nausea or vomiting no diarrhea no burning with urination no frequency or urgency and no hematuria Objective - Vital Signs Vital signs: Vital Signs Temp 98.4 F 02/20/20 07:18 Pulse 70 02/20/20 07:18 Resp 16 02/20/20 07:18 BP 110/67 02/20/20 07:18 Pulse Ox 97 02/20/20 07:18 Intake & Output 02/19/20 02/20/20 02/20/20 18:59 06:59 18:59 Intake Total 1820 300 Balance 1820 300 Intake: Intake, IV Titration 600 Amount Sodium Chloride 0.9% 1, 600 000 ml @ 75 mls/hr IV . [id number] ERWIN Rx#:[id number] Oral 1220 300 Other: Voiding Method Toilet Toilet Toilet # Voids 2 2 # Bowel Movements 3 2 - Exam In general patient is alert and oriented 3 in no apparent distress HEENT head normocephalic and atraumatic Neck is supple no JVD no goiter no lymphadenopathy Chest exam reveals a few scattered rhonchi no wheezing Cardiac exam reveals regular heart sounds S1 and S2 no gallops no murmurs Abdomen is soft nontender no organomegaly with normal bowel sounds Extremity exam reveals no edema no cyanosis or clubbing Neurological examination reveals no gross focal deficits - Labs CBC & Chem 7: 02/20/20 07:13 02/20/20 07:13 Labs: Abnormal Lab Results - Last 24 Hours (Table) 02/20/20 02/20/20 Range/Units 07:13 07:13 RBC 3.48 L (4.30-5.90) m/uL Hgb 11.3 L (13.0-17.5) gm/dL Hct 32.8 L (39.0-53.0) % Glucose 111 H (74-99) mg/dL Total Protein 6.1 L (6.3-8.2) g/dL Assessment and Plan Plan: 1. Rectal bleeding likely related to diverticulosis 2. Recent Colonoscopy on 02/10/2020 that revealed a flat villous adenoma of the ascending colon and severe sigmoid diverticulosis. Status post polypectomy 3. History of hyperlipidemia 4. Previous history of small bowel obstruction, with partial bowel resection 5. History of exploratory laparotomy with lysis of adhesions. 6. Abdominal pain in the epigastric area and right upper quadrant area will check lipase level will check ultrasound of the abdomen will follow in a.m. surgery are following Medication reviewed will reorder At this time will monitor to assess if there is any further GI bleeding Will follow during this admission for medical management. Patient will be discharged by surgery when hemoglobin is stable For DVT prophylaxis he is on SCD stockings
[2020-02-20] MEDS: ATORVASTATIN 10 MG TAB PO SCH (15:35)
--- NOTE | 2020-02-20 18:34 | US ---
EXAMINATION TYPE: US abdomen complete DATE OF EXAM: 02/20/2020 COMPARISON: NONE CLINICAL HISTORY: abdominal pain. Pain and bloating gallbladder removed. Exam limitations due to body habitus and overlying bowel gas. EXAM MEASUREMENTS: Liver Length: 15.3 cm Gallbladder Wall: Surgically absent cm CBD: .7 cm Spleen: 11.9 cm Right Kidney: 11.4 x 6.2 x 5.2 cm Left Kidney: 10.8 x 5.6 x 5.0 cm Pancreas: Obscured by bowel gas Liver: Increased attenuation limited Gallbladder: Surgically absent Evidence for sonographic Palafox's sign: No CBD: wnl Spleen: wnl Right Kidney: Cystic area lower pole 2.5 x 2.3 x 2.4cm Cortical thinning. Left Kidney: Cortical thinning. Upper IVC: wnl Abd Aorta: wnl IMPRESSION: There is some renal atrophy. No renal obstruction. Simple cyst in the lower pole right kidney. No dil ated ducts.
[2020-02-21] MEDS: SODIUM CHLORIDE 0.9% 1,000 ML IV SCH ×2 (06:55→20:27)
[2020-02-21 07:20] LABS: Basophils % (A) 0 %; Eosinophils # (A) 0.4 k/uL (0-0.7); Eosinophils % (A) 6 %; HCT 34.5 % (39.0-53.0); HGB 11.4 gm/dL (13.0-17.5); Lymphocytes # (A) 1.5 k/uL (1.0-4.8); Lymphocytes % (A) 23 %; MCH 31.8 pg (25.0-35.0); MCHC 33.2 g/dL (31.0-37.0); MCV 95.8 fL (80.0-100.0); Mean Platelet Volume 7.4; Monocytes # (A) 0.7 k/uL (0-1.0); Monocytes % (A) 11 %; Neutrophils # (A) 3.8 k/uL (1.3-7.7); Neutrophils % (A) 57 %; Platelet Count 273 k/uL (150-450); RDW 13.8 % (11.5-15.5); WBC 6.6 k/uL (3.8-10.6)
[2020-02-21 07:28] LABS: ALT 34 U/L (4-49); AST 30 U/L (17-59); African American GFR (CKD) >90 (>60 ml/min/1.73 sqM); Albumin 3.7 g/dL (3.5-5.0); Alkaline Phosphatase 71 U/L (38-126); Anion Gap 9 mmol/L; Blood Urea Nitrogen 12 mg/dL (9-20); Calcium 8.6 mg/dL (8.4-10.2); Carbon Dioxide 23 mmol/L (22-30); Chloride 107 mmol/L (98-107); Glucose 103 mg/dL (74-99); Non-African American GFR(CKD) >90 (>60 ml/min/1.73 sqM); Potassium 4.1 mmol/L (3.5-5.1); Sodium 139 mmol/L (137-145); Total Bilirubin 0.7 mg/dL (0.2-1.3); Total Protein 6.3 g/dL (6.3-8.2)
[2020-02-21] MEDS: PANTOPRAZOLE 40 MG/10 ML VIAL IV SCH (08:14)
--- NOTE | 2020-02-21 12:45 | XR ---
EXAMINATION TYPE: XR abdomen 2V DATE OF EXAM: 02/21/2020 12:05 PM CLINICAL HISTORY: Abdominal pain TECHNIQUE: Supine and upright images of the abdomen and pelvis were obtained COMPARISON: [facility] 03/14/2019. CT abdomen pelvis 01/03/2020. FINDINGS: Dilated small bowel loops and air-fluid levels. There is a paucity of gas within the large bowel. There is no visceromegaly, pneumoperitoneum, or abnormal calcification appreciated. The lung b ases are clear. Degenerative changes of the spine and hips. IMPRESSION: Dilated small bowel loops, air-fluid levels, and paucity of colonic gas. Findings likely represent sm all bowel obstruction.
--- NOTE | 2020-02-21 13:40 | P.PN ---
<MatthewToña - Last Filed: 02/21/20 13:32> Subjective Progress Note Date: 02/21/20 CHIEF COMPLAINT: Diverticular bleed HISTORY OF PRESENT ILLNESS: Today patient is complaining of abdominal pain in the middle abdomen and 3 episodes of non-bloody diarrhea this morning. He is passing gas. He denies any nausea or vomiting. He was able to eat mora and some Arabic toast. Patient is reporting that his abdominal discomfort is worse than when he came into the hospital. Abdominal x-ray showing dilated small bowel loops, air fluid levels, and possibly of colonic gas. he is afebrile WBC 6.6 hemoglobin 11.4 PHYSICAL EXAM: VITAL SIGNS: Reviewed GENERAL: Well-developed in no acute distress. HEENT: No sclera icterus. Extraocular movements grossly intact. Moist buccal mucosa. Head is atraumatic, normocephalic. Hears conversational speech. No nasal drainage. NECK: Supple without lymphadenopathy. CHEST: Non-labored respirations and equal bilateral excursions. CARDIOVASCULAR: Palpable 2+ radial pulses. ABDOMEN: Soft. Nondistended. diffuse tenderness MUSCULOSKELETAL: No clubbing or cyanosis. NEUROLOGIC: No focal or lateralizing signs. Cranial nerves II through XII grossly intact. PSYCH: Appropriate affect. Alert and oriented to person, place and time. SKIN: Well perfused. Good skin turgor. ASSESSMENT: 1. Ileus versus partial small bowel obstruction 2. Acute blood loss anemia due to bleeding diverticulosis of the sigmoid colon 3. Status post EGD Findings of LA grade A erosive esophagitis and chronic gastritis 4. Recent Colonoscopy on 02/10/2020 that did reveal a flat villous adenoma of the ascending colon and severe sigmoid diverticulosis. Status post polypectomy 5. History of diverticulosis 6. History of small bowel obstruction 7. History of bowel resection 8. History of exploratory laparotomy with lysis of adhesions PLAN: -Continue to monitor patient -Continue low fiber diet -Checking stool for C. diff -Checking Covid 19 Physician Dam Tender Assistant note has been reviewed by physician. Signing provider agrees with the documented findings, assessment, and plan of care. Objective - Vital Signs Vital signs: Vital Signs Temp 98.1 F 02/21/20 09:00 Pulse 86 02/21/20 09:00 Resp 18 02/21/20 09:00 BP 99/63 02/21/20 09:00 Pulse Ox 96 02/21/20 09:00 Intake & Output 02/20/20 02/21/20 02/21/20 18:59 06:59 18:59 Intake Total 1880 240 600 Balance 1880 240 600 Intake: Intake, IV Titration 300 Amount IV Fluid Continuation 1, 300 000 ml @ 0 mls/hr IV .[facility] Rx#:[id number] Oral 1580 240 600 Other: Voiding Method Toilet Toilet Toilet # Voids 3 1 2 # Bowel Movements 3 - Labs CBC & Chem 7: 02/21/20 06:17 02/21/20 06:17 Labs: Abnormal Lab Results - Last 24 Hours (Table) 02/20/20 02/21/20 02/21/20 Range/Units 07:13 06:17 06:17 RBC 3.60 L (4.30-5.90) m/uL Hgb 11.4 L (13.0-17.5) gm/dL Hct 34.5 L (39.0-53.0) % Glucose 103 H (74-99) mg/dL Lipase 10 L (23-300) U/L <Trinh Lynn N - Last Filed: 02/21/20 19:56> Subjective As above. Please see additional documentation below. HISTORY OF PRESENT ILLNESS: The patient is a 64-year-old male who presented with acute rectal bleeding. Previous colonoscopy demonstrated sigmoid diverticulosis including adenoma ascending colon. Prior to discharge last week, patient had recurrent bleed. Hospitalization was extended. Upper endoscopy performed as patient reported epigastric abdominal pain. No evidence of ulcers found. Over the weekend, reports diarrhea. No blood in stools. He reports increased abdominal pain along the right lower quadrant. Patient has pre-existing history of multiple small bowel obstructions. Discharge held secondary to diarrhea. Additionally, patient reports routine coronavirus screening at his occupation. REVIEW OF ORGAN SYSTEMS: No fevers or chills. No chest pain. PHYSICAL EXAM: VITALS: Reviewed CONSTITUTIONAL: Well developed and in no acute distress. EYES: Conjuctivae without sclera icterus. Extraocular movements grossly intact. HEAD, EARS, NOSE, THROAT: Moist buccal mucosa. Head is atraumatic, normocephalic. Hears conversational speech. No nasal drainage. RESPIRATORY: Non-labored respirations and equal bilateral excursions. No gross wheezes. CARDIOVASCULAR: Regular rate and rhythm. ABDOMEN: Soft. No peritonitis. MUSCULOSKELETAL: Nail and fingers with good capillary refill. SKIN: Warm and well perfused with good skin turgor. NEUROLOGIC: Cranial nerves II through XII grossly intact. Sensation upper and extremities intact. No focal or lateralizing signs. PSYCH: Appropriate affect. Alert and oriented to person, place and time. Displays appropriate insight. CLINCAL LABS: Reviewed. Initial hemoglobin 13.1 down 9.9 now up to 11.4 stable without blood transfusions. STUDIES: Abdominal x-ray reviewed demonstrating dilated small bowel with small amount of gas in the rectum. Images reviewed by me. Features suspicious of ileus versus partial small bowel obstruction. RADIOLOGY: Ultrasound report demonstrates absent gallbladder without hepatobiliary abnormality ASSESSMENT: 1. Acute blood loss anemia 2. History of diverticulosis with bleeding 3. Ileus versus partial small bowel obstruction, recurrent PLAN: 1. He has change in character of his bowel habits and coronavirus testing including C. diff testing obtained. 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 During hospitalization, no antibiotics were administered. 2. Additional studies obtained by medicine team for right upper quadrant abdominal pain although patient has previous cholecystectomy. Likely abdominal pain due to ileus versus partial small bowel obstruction. 3. Diet to be adjusted due to new abdominal pain. Objective - Vital Signs Vital signs: Vital Signs Temp 98.0 F 02/21/20 15:00 Pulse 77 02/21/20 15:00 Resp 18 02/21/20 15:00 BP 121/69 02/21/20 15:00 Pulse Ox 95 02/21/20 15:00 Intake & Output 02/21/20 02/21/20 02/22/20 06:59 18:59 06:59 Intake Total 240 600 Balance 240 600 Intake: Oral 240 600 Other: Voiding Method Toilet Toilet # Voids 1 2 - Labs CBC & Chem 7: 02/21/20 06:17 02/21/20 06:17 Labs: Abnormal Lab Results - Last 24 Hours (Table) 02/21/20 02/21/20 Range/Units 06:17 06:17 RBC 3.60 L (4.30-5.90) m/uL Hgb 11.4 L (13.0-17.5) gm/dL Hct 34.5 L (39.0-53.0) % Glucose 103 H (74-99) mg/dL Assessment and Plan (1) Lower GI hemorrhage Current Visit: Yes Status: Acute Code(s): K92.2 - GASTROINTESTINAL HEMORRHAGE, UNSPECIFIED SNOMED Code(s): 02913598 (2) Abdominal pain Current Visit: No Status: Acute Code(s): R10.9 - UNSPECIFIED ABDOMINAL PAIN SNOMED Code(s): 16434365 (3) Diverticulosis large intestine w/o perforation or abscess w/bleeding Current Visit: No Status: Acute Code(s): K57.31 - DVRTCLOS OF LG INT W/O PERFORATION OR ABSCESS W BLEEDING SNOMED Code(s): 1726914
[2020-02-21] MEDS: ATORVASTATIN 10 MG TAB PO SCH (15:55)
--- NOTE | 2020-02-21 18:59 | P.PN ---
Subjective Progress Note Date: 02/21/20 Saw De Anda, is a 64-year-old male who had a recent colonoscopy on 02/10/[address] Lynn, which revealed a flat villous adenoma of the ascending colon and severe sigmoid diverticulosis. He had a snare polypectomy of the ascending colon. Patient presented to the emergency room with complaints of blood in his stools starting around 1 AM on Friday. He did report soft normal stools after colonoscopy. He did have some crampy abdominal discomfort. He denies any nausea or vomiting. He's had no further blood in his stool since admission. Patient has a known history of hyperlipidemia, small bowel obstructions, C. diff colitis, bowel resection, cholecystectomy, hernia repair, Exploratory laparotomy with lysis of adhesions and Amanda fundoplication. He was evaluated in emergency room his vital examination on presentation revealed a temperature of 98.4 pulse 88 respirations 16 blood pressure 102/73 pulse ox 96% on room air, his white blood count was 7.3 hemoglobin 13.1 platelet count 227 INR 1.0 BUN 22 creatinine 0.79 EKG revealed normal sinus rhythm with pulmonary disease pattern. On review of systems patient is alert and oriented 3 he is denying any symptoms at this time there is no fever or chills no headache or dizziness no chest pain no shortness of breath no cough no nausea or vomiting no abdominal pain no diarrhea no blood in the stools since admission no burning with urination no frequency or urgency no hematuria no numbness or weakness in any of the extremities no change in vision speech or gait. On 02/18/2020 patient was seen and examined in the observation unit he is alert and oriented 3 in no distress he denies any complaints at this time no new episodes of rectal bleeding no bowel movements since admission there is no fever or chills no headache or dizziness no chest pain no shortness of breath no cough no nausea or vomiting no abdominal pain no diarrhea no burning with urination no frequency or urgency and no hematuria. Patient is stable, without any complaints this admission hemoglobin is stable at 10.6. He will be evaluated by surgery for possible discharge to home today. On 02/19/2020 patient was seen and examined on the observation unit he is alert and oriented 3 in no distress yesterday he had 2 dark colored bowel movement and his discharge was canceled this morning hemoglobin is down from 10.9-9.9 he is alert and oriented 3 in no distress there is no fever or chills no headache or dizziness no chest pain no shortness of breath no cough no nausea or vomiting no abdominal pain no diarrhea and no urinary symptoms. On 02/20/2020 patient was seen and examined in the observation unit he is alert and oriented 3 in no apparent distress he is complaining of abdominal pain in the epigastric area and right upper quadrant area he had 3 bowel movements today without any bleeding otherwise he denies any complaints there is no fever or chills no headache or dizziness no chest pain no shortness of breath no cough no nausea or vomiting no diarrhea no burning with urination no frequency or urgency and no hematuria On 02/21/2020 patient was seen and examined in the observation unit he is alert and oriented 3 in no apparent distress, yesterday patient was having abdominal pain in the epigastric and right upper quadrant area ultrasound of the abdomen was done and did not reveal any significant abnormality, today patient was hav ing more pain in the periumbilical area, x-ray of the abdomen was done and revealed evidence of dilated small bowel loops with air-fluid levels, surgery are following, otherwise patient denies any other complaints there is no fever or chills no headache or dizziness no chest pain no shortness of breath no cough no urinary symptoms Objective - Vital Signs Vital signs: Vital Signs Temp 98.0 F 02/21/20 02:08 Pulse 83 02/21/20 02:09 Resp 16 02/21/20 02:09 BP 94/53 02/21/20 02:08 Pulse Ox 95 02/21/20 02:08 Intake & Output 02/20/20 02/21/20 02/21/20 18:59 06:59 18:59 Intake Total 1880 240 Balance 1880 240 Intake: Intake, IV Titration 300 Amount IV Fluid Continuation 1, 300 000 ml @ 0 mls/hr IV .[facility] Rx#:[id number] Oral 1580 240 Other: Voiding Method Toilet Toilet # Voids 3 1 # Bowel Movements 3 - Exam In general patient is alert and oriented 3 in no apparent distress HEENT head normocephalic and atraumatic Neck is supple no JVD no goiter no lymphadenopathy Chest exam reveals a few scattered rhonchi no wheezing Cardiac exam reveals regular heart sounds S1 and S2 no gallops no murmurs Abdomen is soft nontender no organomegaly with normal bowel sounds Extremity exam reveals no edema no cyanosis or clubbing Neurological examination reveals no gross focal deficits - Labs CBC & Chem 7: 02/21/20 06:17 02/21/20 06:17 Labs: Abnormal Lab Results - Last 24 Hours (Table) 02/20/20 02/21/20 02/21/20 Range/Units 07:13 06:17 06:17 RBC 3.60 L (4.30-5.90) m/uL Hgb 11.4 L (13.0-17.5) gm/dL Hct 34.5 L (39.0-53.0) % Glucose 103 H (74-99) mg/dL Lipase 10 L (23-300) U/L Assessment and Plan Plan: 1. Rectal bleeding likely related to diverticulosis 2. Recent Colonoscopy on 02/10/2020 that revealed a flat villous adenoma of the ascending colon and severe sigmoid diverticulosis. Status post polypectomy 3. History of hyperlipidemia 4. Previous history of small bowel obstruction, with partial bowel resection 5. History of exploratory laparotomy with lysis of adhesions. 6. Abdominal pain in the epigastric area and right upper quadrant area will check lipase level will check ultrasound of the abdomen will follow in a.m. surgery are following Medication reviewed will reorder At this time will monitor to assess if there is any further GI bleeding Will follow during this admission for medical management. Patient will be discharged by surgery when hemoglobin is stable For DVT prophylaxis he is on SCD stockings
[2020-02-21] MEDS ORDERED: LIDOCAINE 1% INJ 10MG/ML (20 ML MDV) ONE (19:16)
[2020-02-21] MEDS ORDERED: PROPOFOL 10 MG/ML 20 ML VIAL IV ONE (19:16)
[2020-02-21] MEDS: HYDROmorphone 1 MG/ML 1 ML SYRINGE IVP PRN ×2 (21:12→23:57)
[2020-02-22] MEDS: HYDROmorphone 1 MG/ML 1 ML SYRINGE IVP PRN ×6 (03:10→20:42)
[2020-02-22] MEDS: PANTOPRAZOLE 40 MG/10 ML VIAL IV SCH (07:57)
[2020-02-22] MEDS: SODIUM CHLORIDE 0.9% 1,000 ML IV SCH ×2 (08:00→20:44)
[2020-02-22 09:27] LABS: HCT 33.6 % (39.0-53.0); HGB 11.2 gm/dL (13.0-17.5); MCH 32.1 pg (25.0-35.0); MCHC 33.3 g/dL (31.0-37.0); MCV 96.7 fL (80.0-100.0); Platelet Count 281 k/uL (150-450); RBC 3.48 m/uL (4.30-5.90); RDW 13.9 % (11.5-15.5); WBC 6.9 k/uL (3.8-10.6)
--- NOTE | 2020-02-22 13:32 | P.PN ---
<TeriToña salcido - Last Filed: 02/22/20 13:23> Subjective Progress Note Date: 02/22/20 CHIEF COMPLAINT: Diverticular bleed HISTORY OF PRESENT ILLNESS: Patient is still reporting abdominal pain. He is requiring the IV Dilaudid. Patient reporting less frequency of the diarrhea. Stool is slightly more formed. He denies any nausea or vomiting. Diet was Cut back to the clinic liquid diet due to patient developing an ileus versus partial small bowel obstruction. Stool for C. diff negative. Covid negative. WBC is 6.9. He is afebrile. PHYSICAL EXAM: VITAL SIGNS: Reviewed GENERAL: Well-developed in no acute distress. HEENT: No sclera icterus. Extraocular movements grossly intact. Moist buccal mucosa. Head is atraumatic, normocephalic. Hears conversational speech. No nasal drainage. NECK: Supple without lymphadenopathy. CHEST: Non-labored respirations and equal bilateral excursions. CARDIOVASCULAR: Palpable 2+ radial pulses. ABDOMEN: Soft. Nondistended. diffuse tenderness MUSCULOSKELETAL: No clubbing or cyanosis. NEUROLOGIC: No focal or lateralizing signs. Cranial nerves II through XII grossly intact. PSYCH: Appropriate affect. Alert and oriented to person, place and time. SKIN: Well perfused. Good skin turgor. ASSESSMENT: 1. Ileus versus partial small bowel obstruction 2. Acute blood loss anemia due to bleeding diverticulosis of the sigmoid colon 3. Status post EGD Findings of LA grade A erosive esophagitis and chronic gastritis 4. Recent Colonoscopy on 02/10/2020 that did reveal a flat villous adenoma of the ascending colon and severe sigmoid diverticulosis. Status post polypectomy 5. History of diverticulosis 6. History of small bowel obstruction 7. History of bowel resection 8. History of exploratory laparotomy with lysis of adhesions PLAN: -Continue to monitor patient -Continue clear liquid diet -Continue IV fluids -Continue pain medication as needed -Encouraged patient to ambulate Physician Tie Hacker note has been reviewed by physician. Signing provider agrees with the documented findings, assessment, and plan of care. Objective - Vital Signs Vital signs: Vital Signs Temp 97.9 F 02/22/20 07:31 Pulse 76 02/22/20 07:31 Resp 16 02/22/20 03:00 BP 131/70 02/22/20 07:31 Pulse Ox 95 02/22/20 07:31 Intake & Output 02/21/20 02/22/20 02/22/20 18:59 06:59 18:59 Intake Total 600 480 Balance 600 480 Intake: Oral 600 480 Other: Voiding Method Toilet Toilet # Voids 2 1 2 - Labs CBC & Chem 7: 02/22/20 08:55 02/21/20 06:17 Labs: Abnormal Lab Results - Last 24 Hours (Table) 02/22/20 Range/Units 08:55 RBC 3.48 L (4.30-5.90) m/uL Hgb 11.2 L (13.0-17.5) gm/dL Hct 33.6 L (39.0-53.0) % <ShaneTrinh N - Last Filed: 02/23/20 23:51> Subjective As above. Please see additional documentation below. HISTORY OF PRESENT ILLNESS: The patient is a 64-year-old male who presented with bleeding from sigmoid diverticulosis. He reports he is now passing flatus. He is feeling better. He is on a clear liquid diet. He is using Dilaudid regularly. NSAIDs have been avoided for recent bleed. REVIEW OF ORGAN SYSTEMS: No fevers or chills. No chest pain. No productive sputum PHYSICAL EXAM: VITALS: Reviewed CONSTITUTIONAL: Well developed and in no acute distress. EYES: Conjuctivae without sclera icterus. Extraocular movements grossly intact. HEAD, EARS, NOSE, THROAT: Moist buccal mucosa. Head is atraumatic, normocephalic. Hears conversational speech. No nasal drainage. RESPIRATORY: Non-labored respirations and equal bilateral excursions. No gross wheezes. CARDIOVASCULAR: Regular rate and rhythm. ABDOMEN: Soft. Tender periumbilical MUSCULOSKELETAL: Nail and fingers with good capillary refill. SKIN: Warm and well perfused with good skin turgor. NEUROLOGIC: Cranial nerves II through XII grossly intact. PSYCH: Appropriate affect. Alert and oriented to person, place and time. Displays appropriate insight. CLINCAL LABS: Reviewed. Initial hemoglobin 13.1 down 9.9 now up to 11.4 to 11.2. ASSESSMENT: 1. Acute blood loss anemia 2. History of diverticulosis with bleeding 3. Ileus versus partial small bowel obstruction, recurrent PLAN: 1. Will advance diet to full liquids to include protein shakes. 2. Treatment of diverticulosis similar to diverticulitis diet. 3. Discharge diet will be continued full liquid diet when ready for disposit ion. 4. Anticipate return to work next week pending resolution of current symptoms. 5. Care plan discussed and reviewed him with options and patient is agreeable with level of care. Objective - Vital Signs Vital signs: Vital Signs Temp 98.4 F 02/22/20 19:10 Pulse 81 02/22/20 19:20 Resp 16 02/22/20 19:20 BP 128/71 02/22/20 19:10 Pulse Ox 97 02/22/20 19:10 Intake & Output 02/22/20 02/22/20 02/23/20 06:59 18:59 06:59 Intake Total 480 Balance 480 Intake: Oral 480 Other: Voiding Method Toilet Toilet Toilet # Voids 1 2 2 - Labs CBC & Chem 7: 02/23/20 08:28 02/21/20 06:17 Labs: Abnormal Lab Results - Last 24 Hours (Table) 02/22/20 Range/Units 08:55 RBC 3.48 L (4.30-5.90) m/uL Hgb 11.2 L (13.0-17.5) gm/dL Hct 33.6 L (39.0-53.0) % Assessment and Plan (1) Lower GI hemorrhage Current Visit: Yes Status: Acute Code(s): K92.2 - GASTROINTESTINAL HEMORRHAGE, UNSPECIFIED SNOMED Code(s): 25696957 (2) Abdominal pain Current Visit: No Status: Acute Code(s): R10.9 - UNSPECIFIED ABDOMINAL PAIN SNOMED Code(s): 88574048 (3) Diverticulosis large intestine w/o perforation or abscess w/bleeding Current Visit: No Status: Acute Code(s): K57.31 - DVRTCLOS OF LG INT W/O PERFORATION OR ABSCESS W BLEEDING SNOMED Code(s): 9071834 (4) Small bowel obstruction Current Visit: No Status: Acute Code(s): K56.69 - OTHER INTESTINAL OBSTRUCTION * DO NOT USE * SNOMED Code(s): 756063551
[2020-02-22] MEDS: ATORVASTATIN 10 MG TAB PO SCH (14:16)
--- NOTE | 2020-02-22 18:25 | P.PN ---
Subjective Progress Note Date: 02/22/20 Saw De Anda, is a 64-year-old male who had a recent colonoscopy on 02/10/[address] Lynn, which revealed a flat villous adenoma of the ascending colon and severe sigmoid diverticulosis. He had a snare polypectomy of the ascending colon. Patient presented to the emergency room with complaints of blood in his stools starting around 1 AM on Friday. He did report soft normal stools after colonoscopy. He did have some crampy abdominal discomfort. He denies any nausea or vomiting. He's had no further blood in his stool since admission. Patient has a known history of hyperlipidemia, small bowel obstructions, C. diff colitis, bowel resection, cholecystectomy, hernia repair, Exploratory laparotomy with lysis of adhesions and Amanda fundoplication. He was evaluated in emergency room his vital examination on presentation revealed a temperature of 98.4 pulse 88 respirations 16 blood pressure 102/73 pulse ox 96% on room air, his white blood count was 7.3 hemoglobin 13.1 platelet count 227 INR 1.0 BUN 22 creatinine 0.79 EKG revealed normal sinus rhythm with pulmonary disease pattern. On review of systems patient is alert and oriented 3 he is denying any symptoms at this time there is no fever or chills no headache or dizziness no chest pain no shortness of breath no cough no nausea or vomiting no abdominal pain no diarrhea no blood in the stools since admission no burning with urination no frequency or urgency no hematuria no numbness or weakness in any of the extremities no change in vision speech or gait. On 02/18/2020 patient was seen and examined in the observation unit he is alert and oriented 3 in no distress he denies any complaints at this time no new episodes of rectal bleeding no bowel movements since admission there is no fever or chills no headache or dizziness no chest pain no shortness of breath no cough no nausea or vomiting no abdominal pain no diarrhea no burning with urination no frequency or urgency and no hematuria. Patient is stable, without any complaints this admission hemoglobin is stable at 10.6. He will be evaluated by surgery for possible discharge to home today. On 02/19/2020 patient was seen and examined on the observation unit he is alert and oriented 3 in no distress yesterday he had 2 dark colored bowel movement and his discharge was canceled this morning hemoglobin is down from 10.9-9.9 he is alert and oriented 3 in no distress there is no fever or chills no headache or dizziness no chest pain no shortness of breath no cough no nausea or vomiting no abdominal pain no diarrhea and no urinary symptoms. On 02/20/2020 patient was seen and examined in the observation unit he is alert and oriented 3 in no apparent distress he is complaining of abdominal pain in the epigastric area and right upper quadrant area he had 3 bowel movements today without any bleeding otherwise he denies any complaints there is no fever or chills no headache or dizziness no chest pain no shortness of breath no cough no nausea or vomiting no diarrhea no burning with urination no frequency or urgency and no hematuria On 02/21/2020 patient was seen and examined in the observation unit he is alert and oriented 3 in no apparent distress, yesterday patient was having abdominal pain in the epigastric and right upper quadrant area ultrasound of the abdomen was done and did not reveal any significant abnormality, today patient was hav ing more pain in the periumbilical area, x-ray of the abdomen was done and revealed evidence of dilated small bowel loops with air-fluid levels, surgery are following, otherwise patient denies any other complaints there is no fever or chills no headache or dizziness no chest pain no shortness of breath no cough no urinary symptoms. On 02/22/2020 patient was seen and examined, he is alert and oriented 3 in no apparent distress he is still complaining of some abdominal discomfort otherwise he denies any complaints he is tolerating diet well there is no fever or chills no headache or dizziness no chest pain no shortness of breath no cough no nausea or vomiting no diarrhea no blood in the stools no burning with urination no frequency or urgency and no hematuria Objective - Vital Signs Vital signs: Vital Signs Temp 97.9 F 02/22/20 14:24 Pulse 74 02/22/20 14:24 Resp 14 02/22/20 14:24 BP 129/73 02/22/20 14:24 Pulse Ox 96 02/22/20 14:24 Intake & Output 02/21/20 02/22/20 02/22/20 18:59 06:59 18:59 Intake Total 600 480 Balance 600 480 Intake: Oral 600 480 Other: Voiding Method Toilet Toilet Toilet # Voids 2 1 2 - Exam In general patient is alert and oriented 3 in no apparent distress HEENT head normocephalic and atraumatic Neck is supple no JVD no goiter no lymphadenopathy Chest exam reveals a few scattered rhonchi no wheezing Cardiac exam reveals regular heart sounds S1 and S2 no gallops no murmurs Abdomen is soft nontender no organomegaly with normal bowel sounds Extremity exam reveals no edema no cyanosis or clubbing Neurological examination reveals no gross focal deficits - Labs CBC & Chem 7: 02/22/20 08:55 02/21/20 06:17 Labs: Abnormal Lab Results - Last 24 Hours (Table) 02/22/20 Range/Units 08:55 RBC 3.48 L (4.30-5.90) m/uL Hgb 11.2 L (13.0-17.5) gm/dL Hct 33.6 L (39.0-53.0) % Assessment and Plan Plan: 1. Rectal bleeding likely related to diverticulosis 2. Recent Colonoscopy on 02/10/2020 that revealed a flat villous adenoma of the ascending colon and severe sigmoid diverticulosis. Status post polypectomy 3. History of hyperlipidemia 4. Previous history of small bowel obstruction, with partial bowel resection 5. History of exploratory laparotomy with lysis of adhesions. 6. Abdominal pain with x-ray revealing evidence of ileus versus small bowel ob struction, patient improving gradually currently he is on clear liquid diet and he started passing some gas surgery are following Medication reviewed will reorder At this time will monitor to assess if there is any further GI bleeding Will follow during this admission for medical management. Patient will be discharged by surgery when hemoglobin is stable For DVT prophylaxis he is on SCD stockings
[2020-02-23] MEDS: SODIUM CHLORIDE 0.9% 1,000 ML IV SCH (08:36)
[2020-02-23] MEDS: PANTOPRAZOLE 40 MG/10 ML VIAL IV SCH (08:36)
[2020-02-23 09:07] LABS: Basophils % (A) 0 %; Eosinophils # (A) 0.3 k/uL (0-0.7); Eosinophils % (A) 5 %; HCT 33.3 % (39.0-53.0); Lymphocytes # (A) 1.2 k/uL (1.0-4.8); Lymphocytes % (A) 19 %; MCH 31.2 pg (25.0-35.0); MCHC 33.1 g/dL (31.0-37.0); MCV 94.4 fL (80.0-100.0); Mean Platelet Volume 7.3; Monocytes # (A) 0.8 k/uL (0-1.0); Monocytes % (A) 12 %; Neutrophils # (A) 3.8 k/uL (1.3-7.7); Neutrophils % (A) 62 %; Platelet Count 318 k/uL (150-450); RBC 3.53 m/uL (4.30-5.90); RDW 14.1 % (11.5-15.5); WBC 6.2 k/uL (3.8-10.6)
--- NOTE | 2020-02-23 11:00 | P.PN ---
Subjective Progress Note Date: 02/23/20 Saw De Anda, is a 64-year-old male who had a recent colonoscopy on 02/10/[address] Lynn, which revealed a flat villous adenoma of the ascending colon and severe sigmoid diverticulosis. He had a snare polypectomy of the ascending colon. Patient presented to the emergency room with complaints of blood in his stools starting around 1 AM on Friday. He did report soft normal stools after colonoscopy. He did have some crampy abdominal discomfort. He denies any nausea or vomiting. He's had no further blood in his stool since admission. Patient has a known history of hyperlipidemia, small bowel obstructions, C. diff colitis, bowel resection, cholecystectomy, hernia repair, Exploratory laparotomy with lysis of adhesions and Amanda fundoplication. He was evaluated in emergency room his vital examination on presentation revealed a temperature of 98.4 pulse 88 respirations 16 blood pressure 102/73 pulse ox 96% on room air, his white blood count was 7.3 hemoglobin 13.1 platelet count 227 INR 1.0 BUN 22 creatinine 0.79 EKG revealed normal sinus rhythm with pulmonary disease pattern. On review of systems patient is alert and oriented 3 he is denying any symptoms at this time there is no fever or chills no headache or dizziness no chest pain no shortness of breath no cough no nausea or vomiting no abdominal pain no diarrhea no blood in the stools since admission no burning with urination no frequency or urgency no hematuria no numbness or weakness in any of the extremities no change in vision speech or gait. On 02/18/2020 patient was seen and examined in the observation unit he is alert and oriented 3 in no distress he denies any complaints at this time no new episodes of rectal bleeding no bowel movements since admission there is no fever or chills no headache or dizziness no chest pain no shortness of breath no cough no nausea or vomiting no abdominal pain no diarrhea no burning with urination no frequency or urgency and no hematuria. Patient is stable, without any complaints this admission hemoglobin is stable at 10.6. He will be evaluated by surgery for possible discharge to home today. On 02/19/2020 patient was seen and examined on the observation unit he is alert and oriented 3 in no distress yesterday he had 2 dark colored bowel movement and his discharge was canceled this morning hemoglobin is down from 10.9-9.9 he is alert and oriented 3 in no distress there is no fever or chills no headache or dizziness no chest pain no shortness of breath no cough no nausea or vomiting no abdominal pain no diarrhea and no urinary symptoms. On 02/20/2020 patient was seen and examined in the observation unit he is alert and oriented 3 in no apparent distress he is complaining of abdominal pain in the epigastric area and right upper quadrant area he had 3 bowel movements today without any bleeding otherwise he denies any complaints there is no fever or chills no headache or dizziness no chest pain no shortness of breath no cough no nausea or vomiting no diarrhea no burning with urination no frequency or urgency and no hematuria On 02/21/2020 patient was seen and examined in the observation unit he is alert and oriented 3 in no apparent distress, yesterday patient was having abdominal pain in the epigastric and right upper quadrant area ultrasound of the abdomen was done and did not reveal any significant abnormality, today patient was havi ng more pain in the periumbilical area, x-ray of the abdomen was done and revealed evidence of dilated small bowel loops with air-fluid levels, surgery are following, otherwise patient denies any other complaints there is no fever or chills no headache or dizziness no chest pain no shortness of breath no cough no urinary symptoms. On 02/22/2020 patient was seen and examined, he is alert and oriented 3 in no apparent distress he is still complaining of some abdominal discomfort otherwise he denies any complaints he is tolerating diet well there is no fever or chills no headache or dizziness no chest pain no shortness of breath no cough no nausea or vomiting no diarrhea no blood in the stools no burning with urination no frequency or urgency and no hematuria On 02/23/2020 Patient is alert and oriented x3. Patient is resting comfortably in bed. Complaining of some diarrhea. Patient currently on full liq diet. hgb 11.2. Denies any chest pain or shortness of breath. Denies any nausea or vomiting. Denies any urinary burning or frequency. Elevated temperature 100.5. C. diff was negative. Will order UA Objective - Vital Signs Vital signs: Vital Signs Temp 99.1 F 02/23/20 07:16 Pulse 83 02/23/20 07:16 Resp 14 02/23/20 07:16 BP 100/49 02/23/20 07:16 Pulse Ox 96 02/23/20 07:16 Intake & Output 02/22/20 02/23/20 02/23/20 18:59 06:59 18:59 Intake Total 720 Balance 720 Intake: Oral 720 Other: Voiding Method Toilet Toilet # Voids 2 1 # Bowel Movements 1 - Exam In general patient is alert and oriented 3 in no apparent distress HEENT head normocephalic and atraumatic Neck is supple no JVD no goiter no lymphadenopathy Chest exam reveals a few scattered rhonchi no wheezing Cardiac exam reveals regular heart sounds S1 and S2 no gallops no murmurs Abdomen is soft nontender no organomegaly with normal bowel sounds Extremity exam reveals no edema no cyanosis or clubbing Neurological examination reveals no gross focal deficits - Labs CBC & Chem 7: 02/23/20 08:28 02/21/20 06:17 Labs: Abnormal Lab Results - Last 24 Hours (Table) 02/23/20 Range/Units 08:28 RBC 3.53 L (4.30-5.90) m/uL Hgb 11.0 L (13.0-17.5) gm/dL Hct 33.3 L (39.0-53.0) % Assessment and Plan Assessment: 1. Rectal bleeding likely related to diverticulosis 2. Recent Colonoscopy on 02/10/2020 that revealed a flat villous adenoma of the ascending colon and severe sigmoid diverticulosis. Status post polypectomy 3. History of hyperlipidemia 4. Previous history of small bowel obstruction, with partial bowel resection 5. History of exploratory laparotomy with lysis of adhesions. 6. Abdominal pain with x-ray revealing evidence of ileus versus small bowel obstruction, patient improving gradually currently he is on clear liquid diet and he started passing some gas surgery are following 7. Low-grade temp. cdiff negative and UA will be ordered Medication reviewed will reorder At this time will monitor to assess if there is any further GI bleeding Will follow during this admission for medical management. Patient will be discharged by surgery when hemoglobin is stable For DVT prophylaxis he is on SCD stockings I performed an examination of the patient and discussed their management with the Nurse Practitioner. I have reviewed the Nurse Practitioner's notes and agree with the documented findings and plan of care
[2020-02-23] MEDS: ATORVASTATIN 10 MG TAB PO SCH (12:56)
[2020-02-23] MEDS: HYDROmorphone 1 MG/ML 1 ML SYRINGE IVP PRN ×4 (13:27→23:31)
[2020-02-23 14:57] LABS: Appearance,Urine Clear (Clear); Bilirubin,Urine Negative (Negative); Blood,Urine Negative (Negative); Color,Urine Yellow; Glucose,Urine (UA) Negative (Negative); Ketones,Urine Negative (Negative); Leukocyte Esterase,Urine Negative (Negative); Nitrite,Urine Negative (Negative); PH, Urine 5.5 (5.0-8.0); Protein,Urine Negative (Negative); Specific Gravity,Urine 1.013 (1.001-1.035); Urobilinogen,Urine <2.0 mg/dL (<2.0)
--- NOTE | 2020-02-23 15:32 | P.PN ---
<TeriToña salcido - Last Filed: 02/23/20 15:29> Subjective Progress Note Date: 02/23/20 CHIEF COMPLAINT: Diverticular bleed HISTORY OF PRESENT ILLNESS: Patient Initially reported improvement and abdominal pain this morning. However, this afternoon nursing staff reports that patient is requiring the IV Dilaudid again. He did have a low-grade temp of 100.5 around 3 AM this morning. He is still having some diarrhea. No blood in the stools.WBC 6.2 hemoglobin is 11.0 PHYSICAL EXAM: VITAL SIGNS: Reviewed GENERAL: Well-developed in no acute distress. HEENT: No sclera icterus. Extraocular movements grossly intact. Moist buccal mucosa. Head is atraumatic, normocephalic. Hears conversational speech. No nasal drai nage. NECK: Supple without lymphadenopathy. CHEST: Non-labored respirations and equal bilateral excursions. CARDIOVASCULAR: Palpable 2+ radial pulses. ABDOMEN: Soft. Nondistended. diffuse tenderness MUSCULOSKELETAL: No clubbing or cyanosis. NEUROLOGIC: No focal or lateralizing signs. Cranial nerves II through XII grossly intact. PSYCH: Appropriate affect. Alert and oriented to person, place and time. SKIN: Well perfused. Good skin turgor. ASSESSMENT: 1. Ileus versus partial small bowel obstruction 2. Acute blood loss anemia due to bleeding diverticulosis of the sigmoid colon 3. Status post EGD Findings of LA grade A erosive esophagitis and chronic gastritis 4. Recent Colonoscopy on 02/10/2020 that did reveal a flat villous adenoma of the ascending colon and severe sigmoid diverticulosis. Status post polypectomy 5. History of diverticulosis 6. History of small bowel obstruction 7. History of bowel resection 8. History of exploratory laparotomy with lysis of adhesions PLAN: -Continue to monitor patient -Continue Full liquid diet -Continue IV fluids -Continue pain medication as needed -Encouraged patient to ambulate -encourage use of incentive spirometer. Atelectasis may be contributing to patient's mildly elevated temperature Physician Battery Inspector note has been reviewed by physician. Signing provider agrees with the documented findings, assessment, and plan of care. Objective - Vital Signs Vital signs: Vital Signs Temp 99.0 F 02/23/20 13:26 Pulse 85 02/23/20 13:26 Resp 14 02/23/20 13:26 BP 125/70 02/23/20 13:26 Pulse Ox 95 02/23/20 13:26 Intake & Output 02/22/20 02/23/20 02/23/20 18:59 06:59 18:59 Intake Total 720 Balance 720 Intake: Oral 720 Other: Voiding Method Toilet Toilet Toilet # Voids 2 1 1 # Bowel Movements 1 - Labs CBC & Chem 7: 02/23/20 08:28 02/21/20 06:17 Labs: Abnormal Lab Results - Last 24 Hours (Table) 02/23/20 Range/Units 08:28 RBC 3.53 L (4.30-5.90) m/uL Hgb 11.0 L (13.0-17.5) gm/dL Hct 33.3 L (39.0-53.0) % <Trinh Lynn - Last Filed: 02/23/20 23:53> Subjective Patient seen and evaluated. Please see additional documention. Agree with above. Objective - Vital Signs Vital signs: Vital Signs Temp 98.8 F 02/23/20 16:26 Pulse 85 02/23/20 13:26 Resp 14 02/23/20 13:26 BP 125/70 02/23/20 13:26 Pulse Ox 95 02/23/20 13:26 Intake & Output 02/23/20 02/23/20 02/24/20 06:59 18:59 06:59 Intake Total 720 Balance 720 Intake: Oral 720 Other: Voiding Method Toilet Toilet # Voids 1 1 # Bowel Movements 1 - Labs CBC & Chem 7: 02/23/20 08:28 02/21/20 06:17 Labs: Abnormal Lab Results - Last 24 Hours (Table) 02/23/20 Range/Units 08:28 RBC 3.53 L (4.30-5.90) m/uL Hgb 11.0 L (13.0-17.5) gm/dL Hct 33.3 L (39.0-53.0) % Assessment and Plan (1) Lower GI hemorrhage Current Visit: Yes Status: Acute Code(s): K92.2 - GASTROINTESTINAL HEMORRHAGE, UNSPECIFIED SNOMED Code(s): 87803583 (2) Abdominal pain Current Visit: No Status: Acute Code(s): R10.9 - UNSPECIFIED ABDOMINAL PAIN SNOMED Code(s): 50783539 (3) Diverticulosis large intestine w/o perforation or abscess w/bleeding Current Visit: No Status: Acute Code(s): K57.31 - DVRTCLOS OF LG INT W/O PERFORATION OR ABSCESS W BLEEDING SNOMED Code(s): 5372688 (4) Small bowel obstruction Current Visit: No Status: Acute Code(s): K56.69 - OTHER INTESTINAL OBSTRUCTION * DO NOT USE * SNOMED Code(s): 578460805
--- NOTE | 2020-02-23 16:35 | XR ---
EXAMINATION TYPE: XR chest 2V DATE OF EXAM: 02/23/2020 COMPARISON: 03/14/2019. HISTORY: Rectal bleeding. TECHNIQUE: Frontal and lateral views of the chest are obtained. FINDINGS: There is no focal air space opacity, pleural effusion, or pneumothorax seen. The cardiac silhouette size is within normal limits. The osseous structures are intact. IMPRESSION: No acute cardiopulmonary process.
[2020-02-23] MEDS ORDERED: IOPAMIDOL CONTRAST (ORAL USE) VIAL PO PRN (17:58)
--- NOTE | 2020-02-23 18:07 | P.PN ---
Subjective Progress Note Date: 02/23/20 HISTORY OF PRESENT ILLNESS: The patient is a 64-year-old male who presented with acute sigmoid diverticular bleeding. Since admission his bleeding has resolved. He has now developed diarrhea. He is still passing flatus. Dilaudid controls his abdominal pain and is stable. He is tolerating full liquid diet. Duplicate work-up obtained by medicine who is following. REVIEW OF ORGAN SYSTEMS: Has new fevers or chills. No chest pain. No productive sputum PHYSICAL EXAM: VITALS: Reviewed CONSTITUTIONAL: Well developed and in no acute distress. EYES: Conjuctivae without sclera icterus. Extraocular movements grossly intact. HEAD, EARS, NOSE, THROAT: Moist buccal mucosa. Head is atraumatic, normoce phalic. Hears conversational speech. No nasal drainage. RESPIRATORY: Non-labored respirations and equal bilateral excursions. No gross wheezes. CARDIOVASCULAR: Regular rate and rhythm. ABDOMEN: Soft. No peritonitis. MUSCULOSKELETAL: Nail and fingers with good capillary refill. SKIN: Warm and well perfused with good skin turgor. NEUROLOGIC: Cranial nerves II through XII grossly intact. PSYCH: Appropriate affect. Alert and oriented to person, place and time. Displays appropriate insight. CLINCAL LABS: Reviewed. Initial hemoglobin 13.1 down 9.9 now 11.2. to 11.0 WBC normal 6.2 Coronavirus negative. C Diff negative. ASSESSMENT: 1. Acute blood loss anemia 2. History of diverticulosis with bleeding 3. Ileus versus partial small bowel obstruction, recurrent PLAN: 1. Patient reports concerns of his medical care and wants to limit his care providers at this time. 2. At this time, hospitalist care is being withdrawn per patient request 3. He still reports abdominal pain and recommend CT of the abdomen pelvis to access bowel obstruction Objective - Vital Signs Vital signs: Vital Signs Temp 98.8 F 02/23/20 16:26 Pulse 85 02/23/20 13:26 Resp 14 02/23/20 13:26 BP 125/70 02/23/20 13:26 Pulse Ox 95 02/23/20 13:26 Intake & Output 02/22/20 02/23/20 02/23/20 18:59 06:59 18:59 Intake Total 720 Balance 720 Intake: Oral 720 Other: Voiding Method Toilet Toilet Toilet # Voids 2 1 1 # Bowel Movements 1 - Labs CBC & Chem 7: 02/23/20 08:28 02/21/20 06:17 Labs: Abnormal Lab Results - Last 24 Hours (Table) 02/23/20 Range/Units 08:28 RBC 3.53 L (4.30-5.90) m/uL Hgb 11.0 L (13.0-17.5) gm/dL Hct 33.3 L (39.0-53.0) % Assessment and Plan (1) Lower GI hemorrhage Current Visit: Yes Status: Acute Code(s): K92.2 - GASTROINTESTINAL HEMORRHAGE, UNSPECIFIED SNOMED Code(s): 91617145 (2) Abdominal pain Current Visit: No Status: Acute Code(s): R10.9 - UNSPECIFIED ABDOMINAL PAIN SNOMED Code(s): 16486107 (3) Diverticulosis large intestine w/o perforation or abscess w/bleeding Current Visit: No Status: Acute Code(s): K57.31 - DVRTCLOS OF LG INT W/O PERFORATION OR ABSCESS W BLEEDING SNOMED Code(s): 7298748
--- NOTE | 2020-02-23 21:46 | CT ---
EXAMINATION TYPE: CT abdomen pelvis w con DATE OF EXAM: 02/23/2020 COMPARISON: 01/03/2020. HISTORY: abdominal pain CT DLP: 1893.6 mGycm Automated exposure control for dose reduction was used. TECHNIQUE: Helical acquisition of images was performed from the lung bases through the pelvis. CONTRAST: Performed with Oral Contrast and with IV Contrast, patient injected with 100 mL of Isovue 300. FINDINGS: LUNG BASES: No significant abnormality is appreciated. LIVER/GB: No significant abnormality is appreciated. PANCREAS: No significant abnormality is seen. SPLEEN: No significant abnormality is seen. ADRENALS: No significant abnormality is seen. KIDNEYS: No significant abnormality is seen. A few benign-appearing bilateral renal cysts with the la rgest measuring 2.8 cm. No follow-up is needed. FREE AIR: No free air is visualized. RETROPERITONEAL ADENOPATHY: None visualized REPRODUCTIVE ORGANS: No significant abnormality is seen URINARY BLADDER: No significant abnormality is seen. PELVIC ADENOPATHY: None visualized. OSSEOUS STRUCTURES: No significant abnormality is seen. BOWEL: Moderate sized bowel containing periumbilical hernia. Resultant multiple moderately dilated m id small bowel loops. Oral contrast is seen proximal to the level of obstruction. No free air or flui d. Colonic diverticulosis without acute diverticulitis. OTHER: None. IMPRESSION: Ventral hernia with resultant moderate to high-grade small bowel obstruction. Chronic findings as above.
[2020-02-24] MEDS: HYDROmorphone 1 MG/ML 1 ML SYRINGE IVP PRN ×5 (02:56→20:52)
[2020-02-24] MEDS: SODIUM CHLORIDE 0.9% 1,000 ML IV SCH ×2 (03:00→13:26)
[2020-02-24] MEDS: PANTOPRAZOLE 40 MG/10 ML VIAL IV SCH (09:03)
[2020-02-24 11:02] LABS: Basophils % (A) 0 %; Eosinophils # (A) 0.2 k/uL (0-0.7); Eosinophils % (A) 3 %; HCT 31.3 % (39.0-53.0); HGB 10.2 gm/dL (13.0-17.5); Hypochromasia Slight; Lymphocytes % (A) 17 %; MCH 31.1 pg (25.0-35.0); MCHC 32.6 g/dL (31.0-37.0); MCV 95.3 fL (80.0-100.0); Mean Platelet Volume 6.9; Monocytes # (A) 0.7 k/uL (0-1.0); Monocytes % (A) 11 %; Neutrophils % (A) 66 %; Platelet Count 308 k/uL (150-450); Poikilocytosis Slight; RBC 3.29 m/uL (4.30-5.90); RDW 14.2 % (11.5-15.5); WBC 6.1 k/uL (3.8-10.6)
[2020-02-24 11:23] LABS: ALT 31 U/L (4-49); AST 23 U/L (17-59); African American GFR (CKD) >90 (>60 ml/min/1.73 sqM); Albumin 3.4 g/dL (3.5-5.0); Alkaline Phosphatase 77 U/L (38-126); Anion Gap 8 mmol/L; Blood Urea Nitrogen 11 mg/dL (9-20); Calcium 8.6 mg/dL (8.4-10.2); Carbon Dioxide 26 mmol/L (22-30); Chloride 103 mmol/L (98-107); Glucose 116 mg/dL (74-99); Non-African American GFR(CKD) >90 (>60 ml/min/1.73 sqM); Potassium 3.8 mmol/L (3.5-5.1); Sodium 137 mmol/L (137-145); Total Bilirubin 0.5 mg/dL (0.2-1.3); Total Protein 5.8 g/dL (6.3-8.2)
--- NOTE | 2020-02-24 11:33 | P.PN ---
<TeriToña salcido - Last Filed: 02/24/20 11:29> Subjective Progress Note Date: 02/24/20 CHIEF COMPLAINT: Diverticular bleed HISTORY OF PRESENT ILLNESS: Patient still reporting abdominal pain. He reports that it may be slightly better than yesterday. He did have some nonbloody diarrhea yesterday. He is still requiring the IV Dilaudid. Patient is afebrile. Patient currently on a full liquid diet WBC 6.1 hemoglobin 10.2 Computed tomography scan abdomen and pelvis shows ventral hernia with resultant moderate to high-grade small bowel obstruction UA negative Chest x-ray negative PHYSICAL EXAM: VITAL SIGNS: Reviewed GENERAL: Well-developed in no acute distress. HEENT: No sclera icterus. Extraocular movements grossly intact. Moist buccal mucosa. Head is atraumatic, normocephalic. Hears conversational speech. No nasal drainage. NECK: Supple without lymphadenopathy. CHEST: Non-labored respirations and equal bilateral excursions. CARDIOVASCULAR: Palpable 2+ radial pulses. ABDOMEN: Soft. Nondistended. diffuse tenderness MUSCULOSKELETAL: No clubbing or cyanosis. NEUROLOGIC: No focal or lateralizing signs. Cranial nerves II through XII grossly intact. PSYCH: Appropriate affect. Alert and oriented to person, place and time. SKIN: Well perfused. Good skin turgor. ASSESSMENT: 1. abdominal pain with moderate to high-grade small bowel obstruction Likely due to Periumbilical hernia 2. Acute blood loss anemia due to bleeding diverticulosis of the sigmoid colon 3. Status post EGD Findings of LA grade A erosive esophagitis and chronic gastritis 4. Recent Colonoscopy on 02/10/2020 that did reveal a flat villous adenoma of the ascending colon and severe sigmoid diverticulosis. Status post polypectomy 5. History of diverticulosis 6. History of small bowel obstruction 7. History of bowel resection 8. History of exploratory laparotomy with lysis of adhesions PLAN: -Continue to monitor patient -Continue Full liquid diet -Continue IV fluids -Continue pain medication as needed -Encouraged patient to ambulate -encourage use of incentive spirometer. Atelectasis may be contributing to patient's mildly elevated temperature Physician Lead Data Entry Operator note has been reviewed by physician. Signing provider agrees with the documented findings, assessment, and plan of care. Objective - Vital Signs Vital signs: Vital Signs Temp 98.6 F 02/24/20 08:57 Pulse 80 02/24/20 08:57 Resp 16 10/22/20 08:57 BP 110/60 02/24/20 08:57 Pulse Ox 97 02/24/20 08:57 Intake & Output 02/23/20 02/24/20 02/24/20 18:59 06:59 18:59 Intake Total 960 Balance 960 Intake: Oral 960 Other: Voiding Method Toilet Toilet # Voids 1 1 1 - Labs CBC & Chem 7: 02/24/20 10:23 02/24/20 10:23 Labs: Abnormal Lab Results - Last 24 Hours (Table) 02/24/20 02/24/20 Range/Units 10: 10: RBC 3.29 L (4.30-5.90) m/uL Hgb 10.2 L (13.0-17.5) gm/dL Hct 31.3 L (39.0-53.0) % Glucose 116 H (74-99) mg/dL Total Protein 5.8 L (6.3-8.2) g/dL Albumin 3.4 L (3.5-5.0) g/dL Microbiology - Last 24 Hours (Table) 02/23/20 13:49 Stool Culture - Preliminary Stool <Trinh Lynn N - Last Filed: 02/25/20 21:10> Subjective Patient seen and evaluated above. Please see additional documentation below. HISTORY OF PRESENT ILLNESS: The patient is a 64-year-old male who initially presented with diverticular bleed within developed small bowel obstruction, recurrent. He requires Dilaudid for his abdominal pain. Reports abdominal distention. He is having bowel movements however decreased passage of flatus. REVIEW OF ORGAN SYSTEMS: No chest pain. No productive sputum PHYSICAL EXAM: VITALS: Reviewed CONSTITUTIONAL: Well developed and in no acute distress. EYES: Conjuctivae without sclera icterus. Extraocular movements grossly intact. HEAD, EARS, NOSE, THROAT: Moist buccal mucosa. Head is atraumatic, normocephalic. Hears conversational speech. No nasal drainage. RESPIRATORY: Non-labored respirations and equal bilateral excursions. No gross wheezes. CARDIOVASCULAR: Regular rate and rhythm. ABDOMEN: Soft. Periumbilical tenderness. No peritonitis. MUSCULOSKELETAL: Nail and fingers with good capillary refill. SKIN: Warm and well perfused with good skin turgor. NEUROLOGIC: Cranial nerves II through XII grossly intact. PSYCH: Appropriate affect. Alert and oriented to person, place and time. Displays appropriate insight. CLINCAL LABS: Reviewed. Initial hemoglobin 13.1 down 9.9 now 11.2. to 10.7. WBC normal 6.2 to 6.1 STUDIES: CT of the abdomen and pelvis and pelvic reviewed demonstrating dilated small bowel including features of diverticulosis. No free air. ASSESSMENT: 1. Acute blood loss anemia due to diverticular bleed 2. Small bowel obstruction, recurrent PLAN: 1. Recommend nasogastric tube decompression for small bowel obstruction. 2. Nothing by mouth status. 3. IV fluid hydration advised. Objective - Vital Signs Vital signs: Vital Signs Temp 97.6 F 02/25/20 14:29 Pulse 79 02/25/20 14:50 Resp 18 02/25/20 14:50 BP 113/73 02/25/20 14:29 Pulse Ox 95 02/25/20 14:29 Intake & Output 02/25/20 02/25/20 02/26/20 06:59 18:59 06:59 Intake Total 1000 Output Total 900 2150 Balance 100 -2150 Weight 108.862 kg Intake: Intake, IV Titration 1000 Amount Sodium Chloride 0.9% 1, 1000 000 ml @ 75 mls/hr IV . [id number] [facility] Rx#:[id number] Output: Drainage 350 Right 350 Urine 900 1800 Other: Voiding Method Toilet Urinal # Voids 1 1 # Bowel Movements 3 - Labs CBC & Chem 7: 02/25/20 08:35 02/25/20 08:35 Labs: Abnormal Lab Results - Last 24 Hours (Table) 02/25/20 02/25/20 Range/Units 08:35 08:35 RBC 3.41 L (4.30-5.90) m/uL Hgb 10.7 L (13.0-17.5) gm/dL Hct 32.4 L (39.0-53.0) % Total Protein 5.9 L (6.3-8.2) g/dL Albumin 3.3 L (3.5-5.0) g/dL Microbiology - Last 24 Hours (Table) 02/23/20 13:49 Stool Culture - Preliminary Stool Assessment and Plan (1) Lower GI hemorrhage Status: Acute Code(s): K92.2 - GASTROINTESTINAL HEMORRHAGE, UNSPECIFIED SNOMED Code(s): 44163872 (2) Abdominal pain Status: Acute Code(s): R10.9 - UNSPECIFIED ABDOMINAL PAIN SNOMED Code(s): 33488592 (3) Diverticulosis large intestine w/o perforation or abscess w/bleeding Status: Acute Code(s): K57.31 - DVRTCLOS OF LG INT W/O PERFORATION OR ABSCESS W BLEEDING SNOMED Code(s): 2057656 (4) Small bowel obstruction due to adhesions Status: Acute Code(s): K56.50 - INTESTNL ADHESIONS, UNSP TO PARTIAL VERSUS COMPLETE OBST SNOMED Code(s): 980818326
--- NOTE | 2020-02-24 14:48 | XR ---
EXAMINATION TYPE: XR chest 1V portable DATE OF EXAM: 02/24/2020 CLINICAL HISTORY: NG tube placement . TECHNIQUE: Single AP portable frontal view of the lower chest and upper abdomen is obtained. COMPARISON: Chest x-ray from one day earlier FINDINGS: There is new nasogastric tube projecting below diaphragm. Visualized lung bases remain qamar ar. IMPRESSION: As above.
[2020-02-24] MEDS: ATORVASTATIN 10 MG TAB PO SCH (15:41)
--- NOTE | 2020-02-24 17:55 | P.PN ---
Subjective Progress Note Date: 02/24/20 Saw De Anda, is a 64-year-old male who had a recent colonoscopy on 02/10/[address] Lynn, which revealed a flat villous adenoma of the ascending colon and severe sigmoid diverticulosis. He had a snare polypectomy of the ascending colon. Patient presented to the emergency room with complaints of blood in his stools starting around 1 AM on Friday. He did report soft normal stools after colonoscopy. He did have some crampy abdominal discomfort. He denies any nausea or vomiting. He's had no further blood in his stool since admission. Patient has a known history of hyperlipidemia, small bowel obstructions, C. diff colitis, bowel resection, cholecystectomy, hernia repair, Exploratory laparotomy with lysis of adhesions and Amanda fundoplication. He was evaluated in emergency room his vital examination on presentation revealed a temperature of 98.4 pulse 88 respirations 16 blood pressure 102/73 pulse ox 96% on room air, his white blood count was 7.3 hemoglobin 13.1 platelet count 227 INR 1.0 BUN 22 creatinine 0.79 EKG revealed normal sinus rhythm with pulmonary disease pattern. On review of systems patient is alert and oriented 3 he is denying any symptoms at this time there is no fever or chills no headache or dizziness no chest pain no shortness of breath no cough no nausea or vomiting no abdominal pain no diarrhea no blood in the stools since admission no burning with urination no frequency or urgency no hematuria no numbness or weakness in any of the extremities no change in vision speech or gait. On 02/18/2020 patient was seen and examined in the observation unit he is alert and oriented 3 in no distress he denies any complaints at this time no new episodes of rectal bleeding no bowel movements since admission there is no fever or chills no headache or dizziness no chest pain no shortness of breath no cough no nausea or vomiting no abdominal pain no diarrhea no burning with urination no frequency or urgency and no hematuria. Patient is stable, without any complaints this admission hemoglobin is stable at 10.6. He will be evaluated by surgery for possible discharge to home today. On 02/19/2020 patient was seen and examined on the observation unit he is alert and oriented 3 in no distress yesterday he had 2 dark colored bowel movement and his discharge was canceled this morning hemoglobin is down from 10.9-9.9 he is alert and oriented 3 in no distress there is no fever or chills no headache or dizziness no chest pain no shortness of breath no cough no nausea or vomiting no abdominal pain no diarrhea and no urinary symptoms. On 02/20/2020 patient was seen and examined in the observation unit he is alert and oriented 3 in no apparent distress he is complaining of abdominal pain in the epigastric area and right upper quadrant area he had 3 bowel movements today without any bleeding otherwise he denies any complaints there is no fever or chills no headache or dizziness no chest pain no shortness of breath no cough no nausea or vomiting no diarrhea no burning with urination no frequency or urgency and no hematuria On 02/21/2020 patient was seen and examined in the observation unit he is alert and oriented 3 in no apparent distress, yesterday patient was having abdominal pain in the epigastric and right upper quadrant area ultrasound of the abdomen was done and did not reveal any significant abnormality, today patient was hav ing more pain in the periumbilical area, x-ray of the abdomen was done and revealed evidence of dilated small bowel loops with air-fluid levels, surgery are following, otherwise patient denies any other complaints there is no fever or chills no headache or dizziness no chest pain no shortness of breath no cough no urinary symptoms. On 02/22/2020 patient was seen and examined, he is alert and oriented 3 in no apparent distress he is still complaining of some abdominal discomfort otherwise he denies any complaints he is tolerating diet well there is no fever or chills no headache or dizziness no chest pain no shortness of breath no cough no nausea or vomiting no diarrhea no blood in the stools no burning with urination no frequency or urgency and no hematuria. On 02/23/2020 Patient is alert and oriented x3. Patient is resting comfortably in bed. Complaining of some diarrhea. Patient currently on full liq diet. hgb 11.2. Denies any chest pain or shortness of breath. Denies any nausea or vomiting. Denies any urinary burning or frequency. Elevated temperature 100.5. C. diff was negative. Will order UA On 02/24/2020 patient was seen and examined on the medical floor he is alert and oriented 3 in no apparent distress, he is still complaining of some abdominal discomfort and pain otherwise he denies any complaints there is no fever or chills no headache or dizziness no chest pain no shortness of breath no cough no nausea or vomiting no abdominal pain no diarrhea no blood in the stools no burning with urination no frequency or urgency and no hematuria. Yesterday patient was having some low-grade fever still x-ray and urine analysis were done and there is no evidence of any infectious process at this time, patient is afebrile today, white blood count is normal at 6.1 computed tomography scan of the abdomen and pelvis was done, and the reveals evidence of ventral hernia with resultant moderate to high-grade small bowel obstruction. Later this afternoon, patient was having worsening abdominal pain, he was reevaluated by surgery, and NG tube to suction was inserted Objective - Vital Signs Vital signs: Vital Signs Temp 98.6 F 02/24/20 08:57 Pulse 80 02/24/20 08:57 Resp 16 02/24/20 08:57 BP 110/60 02/24/20 08:57 Pulse Ox 97 02/24/20 08:57 Intake & Output 02/23/20 02/24/20 02/24/20 18:59 06:59 18:59 Intake Total 960 Balance 960 Intake: Oral 960 Other: Voiding Method Toilet Toilet # Voids 1 1 1 - Exam In general patient is alert and oriented 3 in no apparent distress HEENT head normocephalic and atraumatic Neck is supple no JVD no goiter no lymphadenopathy Chest exam reveals a few scattered rhonchi no wheezing Cardiac exam reveals regular heart sounds S1 and S2 no gallops no murmurs Abdomen is soft nontender no organomegaly with normal bowel sounds Extremity exam reveals no edema no cyanosis or clubbing Neurological examination reveals no gross focal deficits - Labs CBC & Chem 7: 02/24/20 10:23 02/24/20 10:23 Labs: Abnormal Lab Results - Last 24 Hours (Table) 02/24/20 02/24/20 Range/Units 10: 10:23 RBC 3.29 L (4.30-5.90) m/uL Hgb 10.2 L (13.0-17.5) gm/dL Hct 31.3 L (39.0-53.0) % Glucose 116 H (74-99) mg/dL Total Protein 5.8 L (6.3-8.2) g/dL Albumin 3.4 L (3.5-5.0) g/dL Microbiology - Last 24 Hours (Table) 02/23/20 13:49 Stool Culture - Preliminary Stool Assessment and Plan Plan: 1. Rectal bleeding likely related to diverticulosis 2. Recent Colonoscopy on 02/10/2020 that revealed a flat villous adenoma of the ascending colon and severe sigmoid diverticulosis. Status post polypectomy 3. History of hyperlipidemia 4. Previous history of small bowel obstruction, with partial bowel resection 5. History of exploratory laparotomy with lysis of adhesions. 6. Abdominal pain with x-ray revealing evidence of ileus versus small bowel obstruction, patient improving gradually currently he is on clear liquid diet and he started passing some gas surgery are following Medication reviewed will reorder At this time will monitor to assess if there is any further GI bleeding Will follow during this admission for medical management. Patient will be discharged by surgery when hemoglobin is stable For DVT prophylaxis he is on SCD stockings
[2020-02-25] MEDS: HYDROmorphone 1 MG/ML 1 ML SYRINGE IVP PRN ×3 (00:15→06:19)
[2020-02-25] MEDS: SODIUM CHLORIDE 0.9% 1,000 ML IV SCH (04:55)
[2020-02-25 08:46] LABS: Basophils % (A) 1 %; Eosinophils # (A) 0.2 k/uL (0-0.7); Eosinophils % (A) 4 %; HCT 32.4 % (39.0-53.0); HGB 10.7 gm/dL (13.0-17.5); Hypochromasia Slight; Lymphocytes # (A) 1.3 k/uL (1.0-4.8); Lymphocytes % (A) 25 %; MCH 31.4 pg (25.0-35.0); MCHC 33.1 g/dL (31.0-37.0); Mean Platelet Volume 7.9; Monocytes # (A) 0.6 k/uL (0-1.0); Monocytes % (A) 12 %; Neutrophils # (A) 2.8 k/uL (1.3-7.7); Neutrophils % (A) 54 %; Platelet Count 284 k/uL (150-450); Poikilocytosis Slight; RBC 3.41 m/uL (4.30-5.90); RDW 13.8 % (11.5-15.5); WBC 5.2 k/uL (3.8-10.6)
[2020-02-25] MEDS: PANTOPRAZOLE 40 MG/10 ML VIAL IV SCH (08:56)
[2020-02-25 09:04] LABS: ALT 28 U/L (4-49); AST 23 U/L (17-59); African American GFR (CKD) >90 (>60 ml/min/1.73 sqM); Albumin 3.3 g/dL (3.5-5.0); Alkaline Phosphatase 72 U/L (38-126); Anion Gap 6 mmol/L; Blood Urea Nitrogen 12 mg/dL (9-20); Calcium 8.4 mg/dL (8.4-10.2); Carbon Dioxide 28 mmol/L (22-30); Chloride 104 mmol/L (98-107); Glucose 95 mg/dL (74-99); Non-African American GFR(CKD) >90 (>60 ml/min/1.73 sqM); Potassium 3.8 mmol/L (3.5-5.1); Sodium 138 mmol/L (137-145); Total Bilirubin 0.7 mg/dL (0.2-1.3); Total Protein 5.9 g/dL (6.3-8.2)
--- NOTE | 2020-02-25 09:56 | P.PN ---
Subjective Progress Note Date: 02/25/20 Saw De Anda, is a 64-year-old male who had a recent colonoscopy on 02/10/[address] Lynn, which revealed a flat villous adenoma of the ascending colon and severe sigmoid diverticulosis. He had a snare polypectomy of the ascending colon. Patient presented to the emergency room with complaints of blood in his stools starting around 1 AM on Friday. He did report soft normal stools after colonoscopy. He did have some crampy abdominal discomfort. He denies any nausea or vomiting. He's had no further blood in his stool since admission. Patient has a known history of hyperlipidemia, small bowel obstructions, C. diff colitis, bowel resection, cholecystectomy, hernia repair, Exploratory laparotomy with lysis of adhesions and Amanda fundoplication. He was evaluated in emergency room his vital examination on presentation revealed a temperature of 98.4 pulse 88 respirations 16 blood pressure 102/73 pulse ox 96% on room air, his white blood count was 7.3 hemoglobin 13.1 platelet count 227 INR 1.0 BUN 22 creatinine 0.79 EKG revealed normal sinus rhythm with pulmonary disease pattern. On review of systems patient is alert and oriented 3 he is denying any symptoms at this time there is no fever or chills no headache or dizziness no chest pain no shortness of breath no cough no nausea or vomiting no abdominal pain no diarrhea no blood in the stools since admission no burning with urination no frequency or urgency no hematuria no numbness or weakness in any of the extremities no change in vision speech or gait. On 02/18/2020 patient was seen and examined in the observation unit he is alert and oriented 3 in no distress he denies any complaints at this time no new episodes of rectal bleeding no bowel movements since admission there is no fever or chills no headache or dizziness no chest pain no shortness of breath no cough no nausea or vomiting no abdominal pain no diarrhea no burning with urination no frequency or urgency and no hematuria. Patient is stable, without any complaints this admission hemoglobin is stable at 10.6. He will be evaluated by surgery for possible discharge to home today. On 02/19/2020 patient was seen and examined on the observation unit he is alert and oriented 3 in no distress yesterday he had 2 dark colored bowel movement and his discharge was canceled this morning hemoglobin is down from 10.9-9.9 he is alert and oriented 3 in no distress there is no fever or chills no headache or dizziness no chest pain no shortness of breath no cough no nausea or vomiting no abdominal pain no diarrhea and no urinary symptoms. On 02/20/2020 patient was seen and examined in the observation unit he is alert and oriented 3 in no apparent distress he is complaining of abdominal pain in the epigastric area and right upper quadrant area he had 3 bowel movements today without any bleeding otherwise he denies any complaints there is no fever or chills no headache or dizziness no chest pain no shortness of breath no cough no nausea or vomiting no diarrhea no burning with urination no frequency or urgency and no hematuria On 02/21/2020 patient was seen and examined in the observation unit he is alert and oriented 3 in no apparent distress, yesterday patient was having abdominal pain in the epigastric and right upper quadrant area ultrasound of the abdomen was done and did not reveal any significant abnormality, today patient was hav ing more pain in the periumbilical area, x-ray of the abdomen was done and revealed evidence of dilated small bowel loops with air-fluid levels, surgery are following, otherwise patient denies any other complaints there is no fever or chills no headache or dizziness no chest pain no shortness of breath no cough no urinary symptoms. On 02/22/2020 patient was seen and examined, he is alert and oriented 3 in no apparent distress he is still complaining of some abdominal discomfort otherwise he denies any complaints he is tolerating diet well there is no fever or chills no headache or dizziness no chest pain no shortness of breath no cough no nausea or vomiting no diarrhea no blood in the stools no burning with urination no frequency or urgency and no hematuria. On 02/23/2020 Patient is alert and oriented x3. Patient is resting comfortably in bed. Complaining of some diarrhea. Patient currently on full liq diet. hgb 11.2. Denies any chest pain or shortness of breath. Denies any nausea or vomiting. Denies any urinary burning or frequency. Elevated temperature 100.5. C. diff was negative. Will order UA On 02/24/2020 patient was seen and examined on the medical floor he is alert and oriented 3 in no apparent distress, he is still complaining of some abdominal discomfort and pain otherwise he denies any complaints there is no fever or chills no headache or dizziness no chest pain no shortness of breath no cough no nausea or vomiting no abdominal pain no diarrhea no blood in the stools no burning with urination no frequency or urgency and no hematuria. Yesterday patient was having some low-grade fever still x-ray and urine analysis were done and there is no evidence of any infectious process at this time, patient is afebrile today, white blood count is normal at 6.1 computed tomography scan of the abdomen and pelvis was done, and the reveals evidence of ventral hernia with resultant moderate to high-grade small bowel obstruction. Later this afternoon, patient was having worsening abdominal pain, he was reevaluated by surgery, and NG tube to suction was inserted On 02/25/2020 patient was seen and examined on the medical floor he is alert and oriented 3 in no distress, NG tube is in to suction, abdominal pain improving, patient has no nausea or vomiting, he had an episode of loose bowel movement this morning, otherwise he denies any complaints there is no fever or chills no headache or dizziness no chest pain no shortness of breath no cough and no urinary symptoms Objective - Vital Signs Vital signs: Vital Signs Temp 98.5 F 02/25/20 08:52 Pulse 72 02/25/20 08:52 Resp 16 02/25/20 08:52 BP 99/55 02/25/20 08:52 Pulse Ox 96 02/25/20 08:52 Intake & Output 02/24/20 02/25/20 02/25/20 18:59 06:59 18:59 Intake Total 1440 1000 Output Total 900 350 Balance 1440 100 -350 Weight 108.862 kg Intake: Intake, IV Titration 1000 Amount Sodium Chloride 0.9% 1, 1000 000 ml @ 75 mls/hr IV . [id number] [facility] Rx#:[id number] Oral 1440 Output: Drainage 350 Right 350 Urine 900 Other: Voiding Method Toilet # Voids 1 1 - Exam In general patient is alert and oriented 3 in no apparent distress HEENT head normocephalic and atraumatic Neck is supple no JVD no goiter no lymphadenopathy Chest exam reveals a few scattered rhonchi no wheezing Cardiac exam reveals regular heart sounds S1 and S2 no gallops no murmurs Abdomen is soft nontender no organomegaly with normal bowel sounds Extremity exam reveals no edema no cyanosis or clubbing Neurological examination reveals no gross focal deficits - Labs CBC & Chem 7: 02/25/20 08:35 02/25/20 08:35 Labs: Abnormal Lab Results - Last 24 Hours (Table) 02/24/20 02/24/20 02/25/20 Range/Units 10: 10: 08:35 RBC 3.29 L 3.41 L (4.30-5.90) m/uL Hgb 10.2 L 10.7 L (13.0-17.5) gm/dL Hct 31.3 L 32.4 L (39.0-53.0) % Glucose 116 H (74-99) mg/dL Total Protein 5.8 L (6.3-8.2) g/dL Albumin 3.4 L (3.5-5.0) g/dL 02/25/20 Range/Units 08:35 RBC (4.30-5.90) m/uL Hgb (13.0-17.5) gm/dL Hct (39.0-53.0) % Glucose (74-99) mg/dL Total Protein 5.9 L (6.3-8.2) g/dL Albumin 3.3 L (3.5-5.0) g/dL Assessment and Plan Plan: 1. Rectal bleeding likely related to diverticulosis 2. Recent Colonoscopy on 02/10/2020 that revealed a flat villous adenoma of the ascending colon and severe sigmoid diverticulosis. Status post polypectomy 3. History of hyperlipidemia 4. Previous history of small bowel obstruction, with partial bowel resection 5. History of exploratory laparotomy with lysis of adhesions. 6. Abdominal pain with x-ray revealing evidence of ileus versus small bowel obstruction, patient improving gradually currently he is on clear liquid diet and he started passing some gas surgery are following Medication reviewed will reorder At this time will monitor to assess if there is any further GI bleeding Will follow during this admission for medical management. Patient will be discharged by surgery when hemoglobin is stable For DVT prophylaxis he is on SCD stockings
[2020-02-25 14:30] VITALS: BP 113/73; PULSE 79; RESP 18; TEMP 97.6
[2020-02-25] MEDS ORDERED: INFLUENZA VACCINE (6 MOS+) 60 MCG/0.5 ML SYRINGE IM ONE (14:33)
--- NOTE | 2020-02-25 15:06 | P.DS ---
<Toña Castro - Last Filed: 02/25/20 14:53> Providers Expected date of discharge: 02/25/20 Hospital Course: Discharge diagnosis 1. Small bowel obstruction 2. Acute blood loss anemia due to bleeding diverticulosis of the sigmoid colon 3. Status post EGD Findings of LA grade A erosive esophagitis and chronic gastritis 4. Recent Colonoscopy on 02/10/2020 that did reveal a flat villous adenoma of the ascending colon and severe sigmoid diverticulosis. Status post polypectomy 5. History of diverticulosis 6. History of small bowel obstruction 7. History of bowel resection 8. History of exploratory laparotomy with lysis of adhesions Hospital course This is a 64-year-old male with a known history of diverticulosis and recent colonoscopy on 02/10/[address] Lynn. The colonoscopy did reveal a flat villous adenoma of the ascending colon and severe sigmoid diverticulosis. Pat ient did have a snare polypectomy of the ascending colon. Patient also has a history of small bowel obstructions, C. diff colitis, bowel resection, cholecystectomy, hernia repair, Exploratory laparotomy with lysis of adhesions and Amanda fundoplication. Patient presents to the emergency room with complaints of blood in his stools. Patient initially Was treated for an acute blood loss anemia due to bleeding from his diverticulosis. Patient's blood in his stools did resolve. However, Patient was having abdominal pain and requiring IV Dilaudid. He was also having diarrhea. A computed tomography scan of the abdomen and pelvis was ordered and results showed a small bowel obstruction. Patient was made nothing by mouth an NG tube was placed for decompression. Patient's bowel obstruction did improve. He has been having bowel movements and passing gas. NG tube was removed. He was started on a clear liquid diet and is tolerating Diet. He has had no nausea or vomiting. He is up and ambulating. He is stable for discharge home. Please refer to chart for any further details. 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 Signing provider agrees with the documented findings, assessment, and plan of care. Patient Condition at Discharge: Stable Plan - Discharge Summary New Discharge Prescriptions: Continue Docusate [Colace] 100 mg PO BID@0100,1500 Aspirin EC [Ecotrin Low Dose] 81 mg PO DAILY@1500 Vitamin K-2 1 tab PO DAILY@1500 Calcium 1500mg 1 tab PO Q48H Simvastatin [Zocor] 20 mg PO DAILY@1500 Vitamin C 4000mg 4,000 mg PO BID@0100,1500 Discontinued [place] 1200mg 1 tab PO BID@0100,1500 Spectro Multivitamin 2 tab PO BID@0100,1500 Vitamin D3 10,000iu 10,000 unit PO DAILY@1500 Fish Oil/Dha/Epa [Fish Oil 1,200 mg Fish Oil] 1 cap PO BID@0100,1500 Discharge Medication List Docusate [Colace] 100 mg PO BID@0100,1500 01/19/19 [History] Aspirin EC [Ecotrin Low Dose] 81 mg PO DAILY@1500 09/09/19 [History] Calcium 1500mg 1 tab PO Q48H 02/16/20 [History] Simvastatin [Zocor] 20 mg PO DAILY@1500 02/16/20 [History] Vitamin C 4000mg 4,000 mg PO BID@0100,1500 02/16/20 [History] Vitamin K-2 1 tab PO DAILY@1500 02/16/20 [History] Follow up Appointment(s)/Referral(s): Lurdes Swanson MD [Primary Care Provider] - 1-2 days (Friday at 1pm February 28 2020) Trinh Lynn MD [STAFF PHYSICIAN] - 02/29/20 (Friday at 4:15 or 5:00 pm, call to confirm time) Patient Instructions/Handouts: Influenza Virus Vaccine (By injection), Constipation (DC), Diverticulosis (DC), Low Fiber Diet (DC), Diverticulosis Diet (GEN), Bowel Obstruction (DC) Activity/Diet/Wound Care/Special Instructions: Do low fiber diet at next 3 days, Hold your vitamins for the next 3 days Return to work Friday Discharge Disposition: HOME SELF-CARE <Trinh Lynn - Last Filed: 02/25/20 21:16> Providers Date of admission: 02/18/20 13:04 Attending physician: Trinh Lynn Primary care physician: Lurdes Swanson - Discharge Diagnosis(es) (1) Lower GI hemorrhage Status: Acute (2) Abdominal pain Status: Acute (3) Diverticulosis large intestine w/o perforation or abscess w/bleeding Status: Acute (4) Small bowel obstruction due to adhesions Status: Acute Hospital Course: Patient seen and evaluated above. Please see additional documentation below. HISTORY OF PRESENT ILLNESS: The patient is a 64-year-old male initially admitted for diverticular bleeding from the rectum. He has acute blood loss anemia due to his diverticular bleed. Separately, patient did complain of epigastric abdominal pain for concerns of gastric ulcers. Upper endoscopy was negative for gastric ulcers. He then developed diarrhea and increased abdominal distention. Diagnostic studies demonstrated small bowel obstruction. Nasogastric tube decompression was performed with immediate improvement of his pain. Abdominal distention resolved. His abdominal pain had resolved after having large bowel movements and passing moderate flatus. Full liquid diet for discharge was reviewed. PHYSICAL EXAM: VITALS: Reviewed CONSTITUTIONAL: Well developed and in no acute distress. EYES: Conjuctivae without sclera icterus. Extraocular movements grossly intact. HEAD, EARS, NOSE, THROAT: Moist buccal mucosa. Head is atraumatic, normocephalic. Hears conversational speech. No nasal drainage. RESPIRATORY: Non-labored respirations and equal bilateral excursions. No gross wheezes. CARDIOVASCULAR: Regular rate and rhythm. ABDOMEN: Soft. Nondistended. Nontender. MUSCULOSKELETAL: Nail and fingers with good capillary refill. SKIN: Warm and well perfused with good skin turgor. NEUROLOGIC: Cranial nerves II through XII grossly intact. PSYCH: Appropriate affect. Alert and oriented to person, place and time. Displays appropriate insight. CLINCAL LABS: Reviewed. Initial hemoglobin 13.1 down 9.9 now 11.2. to 10.7. WBC normal 6.2 to 6.1 to 5.2 ASSESSMENT: 1. Acute blood loss anemia due to diverticular bleed 2. Small bowel obstruction, recurrent PLAN: 1. Patient stable for discharge when tolerating liquid diet.
--- NOTE | 2020-02-27 16:15 | P.PN ---
Progress Note - Text Progress Note Date: 02/27/20 Patient called for on-call. He reports abdominal distention after eating salmon. Patient and were told to maintain a liquid diet. He reports abdominal gas bloat now improved from yesterday. Patient told to return to the ER if symptoms are worse and would need NG tube and bowel rest.
== END 2020-02-25 15:42 | disposition home or self-care (01) | DRG 378 ==
LOC: EC 15:53 → 1SOBS 17:12 → OBSVTOIN 02-18 13:04
PROVIDERS: ADMIT Surgery Plastic and Reconstructive Surgery; ATTEND Surgery Plastic and Reconstructive Surgery
PROC: 0DJ08ZZ Inspection of Upper Intestinal Tract, Via Natural or Artificial Opening Endoscopic (ICD-10-PCS; principal; 2020-02-18 07:45)
PROC: 0D9670Z Drainage of Stomach with Drainage Device, Via Natural or Artificial Opening (ICD-10-PCS; 2020-02-24)
DX: K57.31 Diverticulosis of large intestine without perforation or abscess with bleeding (principal); D62 Acute posthemorrhagic anemia; K22.10 Ulcer of esophagus without bleeding; K56.50 Intestinal adhesions [bands], unspecified as to partial versus complete obstruction; Z20.828 Contact with and (suspected) exposure to other viral communicable diseases; K21.9 Gastro-esophageal reflux disease without esophagitis; E78.5 Hyperlipidemia, unspecified; K29.50 Unspecified chronic gastritis without bleeding; Z79.82 Long term (current) use of aspirin; Z88.5 Allergy status to narcotic agent; Z86.718 Personal history of other venous thrombosis and embolism; Z79.899 Other long term (current) drug therapy; Z87.19 Personal history of other diseases of the digestive system; Z90.49 Acquired absence of other specified parts of digestive tract; Z85.828 Personal history of other malignant neoplasm of skin; Z87.01 Personal history of pneumonia (recurrent); Z86.19 Personal history of other infectious and parasitic diseases; Z90.89 Acquired absence of other organs; Z98.890 Other specified postprocedural states; Z83.3 Family history of diabetes mellitus; Z82.5 Family history of asthma and other chronic lower respiratory diseases; Z80.7 Family history of other malignant neoplasms of lymphoid, hematopoietic and related tissues; Z80.0 Family history of malignant neoplasm of digestive organs
CPT/HCPCS: 36415; 43235; 71045; 71046; 74019; 74177; 76700; 80048; 80053; 81003; 83690; 85025; 85027; 85610; 85730; 86850; 86900; 86901; 87045; 87046; 87324; 90686; 93005; 96361; 96374; 99285

== ENCOUNTER 2020-02-27 17:42 | Inpatient (IN) | payer OTHER, MEDICARE ==
[2020-02-27] MEDS ORDERED: NALOXONE 0.4 MG/ML 1 ML VIAL IV PRN (17:54)
--- NOTE | 2020-02-27 18:08 | ED ---
General Adult HPI - General Chief complaint: Abdominal Pain Stated complaint: Revisit Abd issue Time Seen by Provider: 02/27/20 17:54 Source: patient, RN notes reviewed, old records reviewed Mode of arrival: wheelchair Limitations: no limitations - History of Present Illness Initial comments: 64 yo male presenting for evaluation of increased abdominal distention and abdominal pain. Patient was sent in by his surgeon Dr. Lynn. . He had recent admission with small bowel obstruction. He did have an NG tube He states he has been passing gas and having some yellow diarrhea. He denies vomiting. He reports generalized abdominal pain, cramping and distention. No fever. No chest pain or dyspnea. - Related Data Home Medications Medication Instructions Recorded Confirmed Docusate [Colace] 100 mg PO BID@0100,1500 01/19/19 02/27/20 Aspirin EC [Ecotrin Low Dose] 81 mg PO DAILY@1500 09/09/19 02/27/20 Calcium 1500mg 1 tab PO Q48H 02/16/20 02/27/20 Vitamin C 4000mg 1 tab PO BID@0100,1500 02/16/20 02/27/20 Vitamin K-2 1 tab PO DAILY@1500 02/16/20 02/27/20 Atorvastatin [Lipitor] 20 mg PO DAILY@1500 02/27/20 02/27/20 Allergies Allergy/AdvReac Type Severity Reaction Status Date / Time morphine Allergy Rash/Hives/Shortness Verified 02/27/20 18:23 of Breath Review of Systems ROS Statement: Those systems with pertinent positive or pertinent negative responses have been documented in the HPI. ROS Other: All systems not noted in ROS Statement are negative. Past Medical History Past Medical History: Cancer, Deep Vein Thrombosis (DVT), GERD/Reflux, Hyperlipidemia, Pneumonia Additional Past Medical History / Comment(s): SBOs, L lower leg DVT, blood clot behind R eye, basal skin cancer with removals, pneumonia with SIRS, sinus problems, low back pain, L foot plantar fascitis, urine flow issues at times, past hiatal hernia-(sx) History of Any Multi-Drug Resistant Organisms: C-DIFF Date of last positivie culture/infection: 2009 MDRO Source:: stool Past Surgical History: Adenoidectomy, Bowel Resection, Cholecystectomy, Hernia Repair, Tonsillectomy Additional Past Surgical History / Comment(s): Exploratory lap with lysis of adhesions, small bowel decompression, yamileth fundiplication, EGD, c olonoscopies/benign polypectomies, T&A twice, skin cancer removals, Past Anesthesia/Blood Transfusion Reactions: No Reported Reaction Past Psychological History: No Psychological Hx Reported Smoking Status: Never smoker Past Alcohol Use History: None Reported Past Drug Use History: None Reported - Past Family History Mother Family Medical History: Cancer, Diabetes Mellitus Additional Family Medical History / Comment(s): Emphysema, heart problems, COLON CANCER. Father Additional Family Medical History / Comment(s): COLON CA LIVER CA,MULTIPLE MYELOMA, bone cancer General Exam Limitations: no limitations General appearance: alert, in no apparent distress Head exam: Present: atraumatic, normocephalic Eye exam: Present: normal appearance, PERRL Neck exam: Present: normal inspection. Absent: tenderness, meningismus Respiratory exam: Present: normal lung sounds bilaterally. Absent: respiratory distress, wheezes Cardiovascular Exam: Present: regular rate, normal rhythm GI/Abdominal exam: Present: soft, distended, tenderness. Absent: guarding, rebound, rigid Extremities exam: Present: normal inspection, normal capillary refill. Absent: pedal edema Neurological exam: Present: alert, oriented X3, CN II-XII intact. Absent: motor sensory deficit Psychiatric exam: Present: normal affect, normal mood Skin exam: Present: warm, dry, intact. Absent: cyanosis, diaphoretic Course Vital Signs 02/27/20 17:45 Temperature 98.7 F Pulse Rate 84 Respiratory 18 Rate Blood Pressure 105/70 O2 Sat by Pulse 97 Oximetry Medical Decision Making - Medical Decision Making 64 year-old male with abdominal distention, pain. I did discuss case with Dr. Lynn Sent patient in. She had requested NG tube and abdominal x-ray. NG tube will be placed in the emergency department, laboratory testing and KUB will be obtained. The patient will be admitted to Dr. Lynn. x-ray confirming small bowel obstruction. - Lab Data Result diagrams: 02/27/20 19:10 Disposition Clinical Impression: Small bowel obstruction, Abdominal pain Disposition: ADMITTED IP TO THIS HOSP Condition: Stable Is patient prescribed a controlled substance at d/c from ED?: No Time of Disposition: 18:08
[2020-02-27 19:22] LABS: Basophils # (A) 0.1 k/uL (0-0.2); Basophils % (A) 1 %; Eosinophils # (A) 0.3 k/uL (0-0.7); Eosinophils % (A) 4 %; HCT 35.9 % (39.0-53.0); HGB 11.3 gm/dL (13.0-17.5); Hypochromasia Slight; Lymphocytes # (A) 1.8 k/uL (1.0-4.8); Lymphocytes % (A) 23 %; MCH 30.4 pg (25.0-35.0); MCHC 31.5 g/dL (31.0-37.0); MCV 96.2 fL (80.0-100.0); Monocytes # (A) 0.7 k/uL (0-1.0); Monocytes % (A) 9 %; Neutrophils # (A) 4.6 k/uL (1.3-7.7); Neutrophils % (A) 59 %; Platelet Count 403 k/uL (150-450); Poikilocytosis Slight; RBC 3.73 m/uL (4.30-5.90); RDW 14.4 % (11.5-15.5); WBC 7.7 k/uL (3.8-10.6)
--- NOTE | 2020-02-27 19:23 | XR ---
EXAMINATION TYPE: XR KUB DATE OF EXAM: 02/27/2020 COMPARISON: 02/21/2020 HISTORY: Abdominal pain TECHNIQUE: 2 views upright FINDINGS: There are multiple dilated gas-filled small bowel loops in the mid abdomen. There are fluid levels. There is nasogastric tube in the stomach. Lung bases are clear. There is no pleural effusion . Large bowel gas pattern is fairly normal. IMPRESSION: Multiple dilated small bowel loops in the mid abdomen could relate to mechanical obstruct ion or small bowel ileus. Dilation is similar to recent exam.
[2020-02-27 19:34] LABS: ALT 22 U/L (4-49); AST 24 U/L (17-59); African American GFR (CKD) >90 (>60 ml/min/1.73 sqM); Albumin 3.7 g/dL (3.5-5.0); Alkaline Phosphatase 81 U/L (38-126); Amylase <30 U/L (30-110); Anion Gap 7 mmol/L; Blood Urea Nitrogen 15 mg/dL (9-20); Calcium 9.3 mg/dL (8.4-10.2); Carbon Dioxide 28 mmol/L (22-30); Chloride 102 mmol/L (98-107); Glucose 102 mg/dL (74-99); Lipase 29 U/L (23-300); Non-African American GFR(CKD) >90 (>60 ml/min/1.73 sqM); Sodium 137 mmol/L (137-145); Total Bilirubin 0.4 mg/dL (0.2-1.3); Total Protein 6.5 g/dL (6.3-8.2)
[2020-02-27 19:46] LABS: Partial Thromboplastin Time 22.9 sec (22.0-30.0); Prothrombin Time 9.9 sec (9.0-12.0)
[2020-02-27] MEDS: SODIUM CHLORIDE 0.9% 1,000 ML IV SCH (20:20)
[2020-02-27] MEDS: HYDROmorphone 1 MG/ML 1 ML SYRINGE IVP PRN ×2 (20:52→23:06)
[2020-02-27 20:53] LABS: Appearance,Urine Clear (Clear); Bilirubin,Urine Negative (Negative); Blood,Urine Negative (Negative); Color,Urine Light Yellow; Glucose,Urine (UA) Negative (Negative); Ketones,Urine Negative (Negative); Leukocyte Esterase,Urine Negative (Negative); Nitrite,Urine Negative (Negative); Protein,Urine Negative (Negative); Urobilinogen,Urine <2.0 mg/dL (<2.0)
[2020-02-28] MEDS: HYDROmorphone 1 MG/ML 1 ML SYRINGE IVP PRN ×8 (01:07→20:50)
[2020-02-28] MEDS: SODIUM CHLORIDE 0.9% 1,000 ML IV SCH ×2 (04:08→14:05)
[2020-02-28] MEDS ORDERED: METOCLOPRAMIDE 5 MG/ML 2 ML VIAL IVP PRN (04:38)
[2020-02-28] MEDS ORDERED: ACETAMINOPHEN IV (For NPO) 1,000 MG in EMPTY BAG 1 BAG IVPB ONE (04:38)
[2020-02-28] MEDS: ONDANSETRON 4 MG/2 ML VIAL IVP SCH ×3 (05:27→17:50)
[2020-02-28] MEDS ORDERED: KETOROLAC 15 MG/ML 1 ML VIAL IVP SCH (06:00)
[2020-02-28] MEDS: D5-0.45% NACL WITH KCL 20MEQ/L 1,000 ML IV SCH ×3 (06:01→20:52)
--- NOTE | 2020-02-28 07:50 | P.GSHP ---
History of Present Illness H&P Date: 02/28/20 CHIEF COMPLAINT: Small bowel obstruction HISTORY OF PRESENT ILLNESS: The patient is a 64-year-old male recently discharged 3 days ago for acute diverticular bleed who then developed acute small bowel obstruction during his last hospitalization. He was treated at that time with conservative management with nasogastric tube decompression including nothing by mouth status. Prior to discharge, he was passing flatus and tolerating liquid diet. Patient had gone home and ate [place]. After eating such food, he developed recurrent abdominal gas bloat and pain. His history is significant for multiple bowel obstructions including diverticulitis as well as previous exploratory laparotomy. He returns back to the emergency room for recurrent small bowel obstruction. Since admission, he reports increased passage of flatus. NG tube 10-Syriac present with no output. Reports mild abdominal pain along the epigastrium and incisional hernia site. PAST MEDICAL HISTORY: See list and reviewed PAST SURGICAL HISTORY: See list and reviewed MEDICATIONS: See list and reviewed ALLERGIES: See list and reviewed SOCIAL HISTORY: See list and reviewed FAMILY HISTORY: See list and reviewed REVIEW OF ORGAN SYSTEMS: CONSTITUTIONAL: No fevers or chills. EYES: Denies any trouble with vision. No glasses. HEENT: No difficulties with hearing. No nosebleeds. No difficulty swallowing. RESPIRATORY: Past pneumonia with scissors. CARDIOVASCULAR: Denies any chest pain, palpitations, or recent heart attacks. GASTROINTESTINAL: Has change in bowel habits and gas bloat. History of diverticulosis. Reports intolerance to sugars. GENITOURINARY: Denies any blood in urine or increased urinary frequency. NEUROLOGICAL: Denies any numbness or tingling along the distal extremities. No seizure disorders or headaches. MUSCULOSKELETAL: Has back pain, stiffness or joint arthritis. SKIN: Past skin cancer. No rash. PSYCHIATRIC: Denies current depression or suicidal thoughts. ENDOCRINE: Denies current thyroid disorders. Denies any blood sugar glucose intolerance. HEME/LYMPHATIC: Denies any lumps and bumps around the neck. Past deep venous thrombosis. ALLERGY/IMMUNOLOGY: No immunoglobulin therapy. No immune deficiencies. BREAST: Denies current breast lumps, pain or nipple discharge. PHYSICAL EXAM: VITALS: Reviewed CONSTITUTIONAL: Well developed and in no acute distress. EYES: Conjuctivae without sclera icterus. Pupils are equally round and reactive to light. Extraocular movements grossly intact. HEAD, EARS, NOSE, THROAT: Moist buccal mucosa. Head is atraumatic, normocephalic. Hears conversational speech. No nasal drainage. NECK: Supple. No JV distention. RESPIRATORY: Non-labored respirations and equal bilateral excursions. No gross wheezes. CARDIOVASCULAR: Regular rate and rhythm. Palpable 2+ radial pulses. ABDOMEN: Soft. Protuberant. No peritonitis. Has incisional hernia of the epigastrium over 4 cm, reducible. LYMPH: No neck lymphadenopathy. MUSCULOSKELETAL: No clubbing cyanosis. SKIN: Warm and well perfused with good skin turgor. NEUROLOGIC: Cranial nerves II through XII grossly intact. No focal or lateralizing signs. PSYCH: Appropriate affect. Alert and oriented to person, place and time. Displays appropriate insight. CLINCAL LABS: Reviewed. WBC normal at 9.1. IMAGING: Abdominal x-ray independently reviewed demonstrating small bowel dilation. Previous CT of the abdomen was independently reviewed also demonstrated moderate small bowel dilation. Transition point along the right upper to right lower quadrant identified. RADIOLOGY: Report reviewed consistent small bowel obstruction versus ileus. ASSESSMENT: 1. Recurrent small bowel obstruction 2. Recent diverticular bleed 3. History of sigmoid diverticulosis with diverticulitis 4. Incisional hernia PLAN: 1. Inpatient hospitalization over 2 nights described due to recurrent small bowel obstruction. 2. Surgical intervention was described for recurrent small bowel obstruction 3. Nothing by mouth status 4. Nasogastric tube decompression 5. May need enteral nutrition, TPN and PICC line 6. Repeat abdominal films described. Past Medical History Past Medical History: Cancer, Deep Vein Thrombosis (DVT), GERD/Reflux, Hyperlipidemia, Pneumonia Additional Past Medical History / Comment(s): SBOs, L lower leg DVT, blood clot behind R eye, basal skin cancer with removals, pneumonia with SIRS, sinus problems, low back pain, L foot plantar fascitis, urine flow issues at times, past hiatal hernia-(sx) History of Any Multi-Drug Resistant Organisms: C-DIFF Date of last positivie culture/infection: 2009 MDRO Source:: stool Past Surgical History: Adenoidectomy, Bowel Resection, Cholecystectomy, Hernia Repair, Tonsillectomy Additional Past Surgical History / Comment(s): Exploratory lap with lysis of adhesions, small bowel decompression, yamileth fundiplication, EGD, colonoscopies/benign polypectomies, T&A twice, skin cancer removals, Past Anesthesia/Blood Transfusion Reactions: No Reported Reaction Past Psychological History: No Psychological Hx Reported Smoking Status: Never smoker Past Alcohol Use History: None Reported Additional Past Alcohol Use History / Comment(s): Patient is a lifelong nonsmoker. He does have medical marijuana but states he hasn't smoked marijuana in a very long time (over a year). He denies any street drug use. He denies any alcohol use. He is currently living at home with his . 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 He has been in the [employer] and is unknown if he has asbestos EXPOSURE. . No recent travel. Past Drug Use History: None Reported - Past Family History Mother Family Medical History: Cancer, Diabetes Mellitus Additional Family Medical History / Comment(s): Emphysema, heart problems, COLON CANCER. Father Additional Family Medical History / Comment(s): COLON CA LIVER CA,MULTIPLE MYELOMA, bone cancer Medications and Allergies Home Medications Medication Instructions Recorded Confirmed Type Docusate [Colace] 100 mg PO BID@0100,1500 01/19/19 02/27/20 History Aspirin EC [Ecotrin Low Dose] 81 mg PO DAILY@1500 09/09/19 02/27/20 History Calcium 1500mg 1 tab PO Q48H 02/16/20 02/27/20 History Vitamin C 4000mg 1 tab PO BID@0100,1500 02/16/20 02/27/20 History Vitamin K-2 1 tab PO DAILY@1500 02/16/20 02/27/20 History Atorvastatin [Lipitor] 20 mg PO DAILY@1500 02/27/20 02/27/20 History Allergies Allergy/AdvReac Type Severity Reaction Status Date / Time morphine Allergy Rash/Hives/Shortness Verified 02/27/20 18:23 of Breath Surgical - Exam Vital Signs Temp Pulse Resp BP Pulse Ox 98.7 F 84 18 105/70 97 02/27/20 17:45 02/27/20 17:45 02/27/20 17:45 02/27/20 17:45 02/27/20 17:45 Results - Labs 02/27/20 19:10 02/27/20 19:10 Abnormal Lab Results - Last 24 Hours (Table) 02/27/20 02/27/20 Range/Units 19:10 19:10 RBC 3.73 L (4.30-5.90) m/uL Hgb 11.3 L (13.0-17.5) gm/dL Hct 35.9 L (39.0-53.0) % Glucose 102 H (74-99) mg/dL Amylase <30 L (30-110) U/L Diabetes panel 02/27/20 Range/Units 19:10 Sodium 137 (137-145) mmol/L Potassium 4.0 (3.5-5.1) mmol/L Chloride 102 (98-107) mmol/L Carbon Dioxide 28 (22-30) mmol/L BUN 15 (9-20) mg/dL Creatinine 0.74 (0.66-1.25) mg/dL Glucose 102 H (74-99) mg/dL Calcium 9.3 (8.4-10.2) mg/dL AST 24 (17-59) U/L ALT 22 (4-49) U/L Alkaline Phosphatase 81 (38-126) U/L Total Protein 6.5 (6.3-8.2) g/dL Albumin 3.7 (3.5-5.0) g/dL Calcium panel 02/27/20 Range/Units 19:10 Calcium 9.3 (8.4-10.2) mg/dL Albumin 3.7 (3.5-5.0) g/dL Pituitary panel 02/27/20 Range/Units 19:10 Sodium 137 (137-145) mmol/L Potassium 4.0 (3.5-5.1) mmol/L Chloride 102 (98-107) mmol/L Carbon Dioxide 28 (22-30) mmol/L BUN 15 (9-20) mg/dL Creatinine 0.74 (0.66-1.25) mg/dL Glucose 102 H (74-99) mg/dL Calcium 9.3 (8.4-10.2) mg/dL Adrenal panel 02/27/20 Range/Units 19:10 Sodium 137 (137-145) mmol/L Potassium 4.0 (3.5-5.1) mmol/L Chloride 102 (98-107) mmol/L Carbon Dioxide 28 (22-30) mmol/L BUN 15 (9-20) mg/dL Creatinine 0.74 (0.66-1.25) mg/dL Glucose 102 H (74-99) mg/dL Calcium 9.3 (8.4-10.2) mg/dL Total Bilirubin 0.4 (0.2-1.3) mg/dL AST 24 (17-59) U/L ALT 22 (4-49) U/L Alkaline Phosphatase 81 (38-126) U/L Total Protein 6.5 (6.3-8.2) g/dL Albumin 3.7 (3.5-5.0) g/dL Assessment and Plan (1) Small bowel obstruction Current Visit: Yes Status: Acute Code(s): K56.69 - OTHER INTESTINAL OBSTRUCTION * DO NOT USE * SNOMED Code(s): 078044791 (2) Abdominal bloating Current Visit: No Status: Acute Code(s): R14.0 - ABDOMINAL DISTENSION (GASEOUS) SNOMED Code(s): 944349916 (3) Chronic abdominal pain Current Visit: No Status: Acute Code(s): R10.9 - UNSPECIFIED ABDOMINAL PAIN; G89.29 - OTHER CHRONIC PAIN SNOMED Code(s): 759193056
--- NOTE | 2020-02-28 07:53 | P.PN ---
Progress Note - Text Progress Note Date: 02/28/20 To Whom It May Concern: Saw De Anda has been hospitalized and under my surgical care from 02/16/2020. He had been ill since 02/15/2020 prior to admission. Patient continues to be hospitalized at present. He will be discharged once medically and surgically stable. Regards, Trinh Lynn MD, FACS, [facility]
[2020-02-28] MEDS: ENOXAPARIN 30 MG/0.3 ML SYRINGE SQ SCH (08:17)
[2020-02-28] MEDS: PANTOPRAZOLE 40 MG/10 ML VIAL IV SCH (08:17)
--- NOTE | 2020-02-28 08:50 | XR ---
2 view abdomen HISTORY: Small bowel obstruction 2 views the abdomen on 3 images correlated to KUB 02/27/2020, CT 02/23/2020 There is an NG tube in place the distal tip in the left upper quadrant. Air-filled loops of small and large bowel are noted, there is improvement in the previously identified distention. No evident pneu moperitoneum. Diverticular changes are noted within the colon. Overlying artifact of the left lower q uadrant is suspected. Probable vascular calcifications within the pelvis. IMPRESSION: Improvement in small bowel distention, correlate.
--- NOTE | 2020-02-28 10:01 | P.PN ---
Progress Note - Text Progress Note Date: 02/28/20 Repeat abdominal x-ray reviewed. Features of small bowel obstruction resolved. Exploratory laparotomy canceled. We'll proceed with slow advancement of diet. Any relapse in condition may result in surgical intervention. Findings including care plan described to patient who was agreeable with plan. Anticipated hospitalization 5 days reviewed.
[2020-02-28] MEDS ORDERED: ACETAMINOPHEN IV (For NPO) 1,000 MG in EMPTY BAG 1 BAG IVPB SCH (12:00)
[2020-02-28] MEDS: ACETAMINOPHEN IV (For NPO) 1,000 MG in EMPTY BAG 1 BAG IVPB SCH (20:51)
[2020-02-29] MEDS: SODIUM CHLORIDE 0.9% 1,000 ML IV SCH ×3 (00:05→20:45)
[2020-02-29] MEDS: ONDANSETRON 4 MG/2 ML VIAL IVP SCH ×4 (00:05→17:31)
[2020-02-29] MEDS: HYDROmorphone 1 MG/ML 1 ML SYRINGE IVP PRN ×2 (00:05→02:13)
[2020-02-29] MEDS: ACETAMINOPHEN IV (For NPO) 1,000 MG in EMPTY BAG 1 BAG IVPB SCH ×2 (02:14→08:01)
[2020-02-29] MEDS: D5-0.45% NACL WITH KCL 20MEQ/L 1,000 ML IV SCH ×3 (05:31→19:25)
[2020-02-29 07:14] LABS: Basophils % (A) 1 %; Eosinophils # (A) 0.4 k/uL (0-0.7); Eosinophils % (A) 8 %; HCT 30.4 % (39.0-53.0); Hypochromasia Moderate; Lymphocytes # (A) 1.7 k/uL (1.0-4.8); Lymphocytes % (A) 34 %; MCH 30.5 pg (25.0-35.0); MCHC 31.4 g/dL (31.0-37.0); MCV 97.1 fL (80.0-100.0); Mean Platelet Volume 6.9; Monocytes # (A) 0.5 k/uL (0-1.0); Monocytes % (A) 10 %; Neutrophils # (A) 2.2 k/uL (1.3-7.7); Neutrophils % (A) 44 %; Platelet Count 359 k/uL (150-450); Poikilocytosis Slight; RBC 3.14 m/uL (4.30-5.90); RDW 14.3 % (11.5-15.5)
[2020-02-29 07:29] LABS: HGB 9.6 gm/dL (13.0-17.5)
[2020-02-29] MEDS: PANTOPRAZOLE 40 MG/10 ML VIAL IV SCH (08:00)
[2020-02-29] MEDS: ENOXAPARIN 30 MG/0.3 ML SYRINGE SQ SCH (08:02)
[2020-02-29] MEDS ORDERED: ACETAMINOPHEN TAB 500 MG TAB PO PRN (09:04)
[2020-02-29 09:16] LABS: Albumin 3.5 g/dL (3.80-4.90); Albumin/Globulin Ratio 2.19 (1.60-3.17); Anion Gap 7.2 mmol/L (4.00-12.00); BUN/Creat Ratio 8.57 Ratio (12.00-20.00); Calcium 8.3 mg/dL (8.7-10.3); Carbon Dioxide 25.8 mmol/L (21.6-31.8); Globulin 1.6 g/dL (1.6-3.3); Magnesium 1.9 mg/dL (1.5-2.4); Non-African American GFR(CKD) 98.3 (60.0-200.0); Phosphorus 3.9 mg/dL (2.4-5.1); Total Bilirubin 0.2 mg/dL (0.3-1.2); Total Protein 5.1 g/dL (6.2-8.2)
--- NOTE | 2020-02-29 09:24 | P.PN ---
<Toña Castro - Last Filed: 02/29/20 09:14> Subjective Progress Note Date: 02/29/20 CHIEF COMPLAINT: Small bowel obstruction HISTORY OF PRESENT ILLNESS: The patient is a 64-year-old male recently hospitalized for acute diverticular bleed who then developed acute small bowel obstruction. He was treated at that time with conservative management with nasogastric tube decompression including nothing by mouth status. He is currently hospitalized again with recurrent small bowel obstruction. Patient reports decrease in his abdominal pain. He is passing gas. There is minimal output through the NG tube. And he is tolerating popsicles and ice. He is afebrile. WBC is 5 and hemoglobin 9.6 PHYSICAL EXAM: VITAL SIGNS: Reviewed GENERAL: Well-developed in no acute distress. HEENT: No sclera icterus. Extraocular movements grossly intact. Moist buccal mucosa. Head is atraumatic, normocephalic. Hears conversational speech. No nasal drainage. NECK: Supple without lymphadenopathy. CHEST: Non-labored respirations and equal bilateral excursions. CARDIOVASCULAR: Palpable 2+ radial pulses. ABDOMEN: Soft. Decrease in abdominal distention MUSCULOSKELETAL: No clubbing or cyanosis. NEUROLOGIC: No focal or lateralizing signs. Cranial nerves II through XII grossly intact. PSYCH: Appropriate affect. Alert and oriented to person, place and time. SKIN: Well perfused. Good skin turgor. ASSESSMENT: 1. Recurrent small bowel obstruction 2. Recent diverticular bleed 3. History of sigmoid diverticulosis with diverticulitis 4. Incisional hernia PLAN: -Will do a trial of liquids and disconnect NG tube from suction. If patient is tolerating the liquid diet, we will plan to remove NG tube today -Add Tylenol 1000 mg by mouth every 6 hours as needed for pain -Follow-up on abdominal x-ray Physician Market Research Senior Project Manager note has been reviewed by physician. Signing provider agrees with the documented findings, assessment, and plan of care. Objective - Vital Signs Vital signs: Vital Signs Temp 98.1 F 02/29/20 07:00 Pulse 64 02/29/20 07:45 Resp 16 02/29/20 07:45 BP 119/65 02/29/20 07:00 Pulse Ox 94 L 02/29/20 07:00 Intake & Output 02/28/20 02/29/20 02/29/20 18:59 06:59 18:59 Other: Voiding Method Toilet Urinal Urinal # Voids 1 4 - Labs CBC & Chem 7: 02/29/20 06:01 02/27/20 19:10 Labs: Abnormal Lab Results - Last 24 Hours (Table) 02/29/20 Range/Units 06:01 RBC 3.14 L (4.30-5.90) m/uL Hgb 9.6 L D (13.0-17.5) gm/dL Hct 30.4 L (39.0-53.0) % <Trinh Lynn N - Last Filed: 02/29/20 11:06> Subjective As above. Please see additional recommendations and comments below. HISTORY OF PRESENT ILLNESS: The patient is a 64-year-old male who is admitted for recurrent small bowel obstruction. On his last hospitalization he was admit [facility] for diverticular bleed and then developed bowel obstruction. Since admission, his abdominal pain is moderately improved. He responded well to conservative management. He is passing moderate flatus. No nausea and vomiting. He is tolerating ice chips and popsicles. REVIEW OF ORGAN SYSTEMS: He ispassing flatus. No bloody bowel movements. PHYSICAL EXAM: VITALS: Reviewed CONSTITUTIONAL: Well developed and in no acute distress. EYES: Conjuctivae without sclera icterus. Extraocular movements grossly intact. HEAD, EARS, NOSE, THROAT: Moist buccal mucosa. Head is atraumatic, normocep halic. Hears conversational speech. No nasal drainage. NECK: Supple. No JV distention. RESPIRATORY: Non-labored respirations and equal bilateral excursions. No gross wheezes. CARDIOVASCULAR: Regular rate and rhythm. Palpable 2+ radial pulses. ABDOMEN: Soft. Protuberant. No peritonitis. MUSCULOSKELETAL: No clubbing cyanosis. SKIN: Warm and well perfused with good skin turgor. NEUROLOGIC: Cranial nerves II through XII grossly intact. No focal or lateralizing signs. PSYCH: Appropriate affect. Alert and oriented to person, place and time. Displays appropriate insight. CLINCAL LABS: Reviewed. Hemoglobin down from 11.3-9.6. IMAGING: Abdominal x-ray independently demonstrating resolution of small bowel dilation from admission. Diffuse bowel gas pattern through the rectum colon and small bowel. No air fluid levels identified. This is my independent interpretation. ASSESSMENT: 1. Recurrent small bowel obstruction 2. Recent diverticular bleed 3. History of sigmoid diverticulosis with diverticulitis 4. Incisional hernia PLAN: 1. Advance diet to clear liquid. 2. Pending tolerance of clear liquid diet, will discontinue nasogastric tube. 3. Recommend slow stepwise progression of diet. 4. Disposition pending when patient tolerates soft diet Objective - Vital Signs Vital signs: Vital Signs Temp 98.1 F 02/29/20 07:00 Pulse 64 02/29/20 07:45 Resp 16 02/29/20 07:45 BP 119/65 02/29/20 07:00 Pulse Ox 94 L 02/29/20 07:00 Intake & Output 02/28/20 02/29/20 02/29/20 18:59 06:59 18:59 Other: Voiding Method Toilet Urinal Urinal # Voids 1 4 - Labs CBC & Chem 7: 02/29/20 06:01 02/29/20 06:01 Labs: Abnormal Lab Results - Last 24 Hours (Table) 02/29/20 02/29/20 Range/Units 06:01 06:01 RBC 3.14 L (4.30-5.90) m/uL Hgb 9.6 L D (13.0-17.5) gm/dL Hct 30.4 L (39.0-53.0) % BUN 6.0 L (9.0-27.0) mg/dL BUN/Creatinine Ratio 8.57 L (12.00-20.00) Ratio Glucose 111 H (70-110) mg/dL Calcium 8.3 L (8.7-10.3) mg/dL Total Bilirubin 0.2 L (0.3-1.2) mg/dL Total Protein 5.1 L (6.2-8.2) g/dL Albumin 3.50 L (3.80-4.90) g/dL Assessment and Plan (1) Small bowel obstruction Current Visit: Yes Status: Acute Code(s): K56.69 - OTHER INTESTINAL OBSTRUCTION * DO NOT USE * SNOMED Code(s): 435799034 (2) Abdominal bloating Current Visit: No Status: Acute Code(s): R14.0 - ABDOMINAL DISTENSION (GASEOUS) SNOMED Code(s): 442606524 (3) Chronic abdominal pain Current Visit: No Status: Acute Code(s): R10.9 - UNSPECIFIED ABDOMINAL PAIN; G89.29 - OTHER CHRONIC PAIN SNOMED Code(s): 302683201
--- NOTE | 2020-02-29 11:18 | XR ---
EXAMINATION TYPE: XR abdomen 2V DATE OF EXAM: 02/29/2020 7:34 AM CLINICAL HISTORY: Bowel obstruction TECHNIQUE: Supine and upright images of the abdomen and pelvis were obtained COMPARISON: 02/28/2020 KUB. FINDINGS: Enteric tube distal tip and side-port overlie the upper quadrant of the projected gastric f undus. Mildly improved gaseous dilatation of small bowel loops versus 02/28/2020. Gas and fecal mater ial is seen in non-distended colon. No pneumoperitoneum. IMPRESSION: Mildly improved small bowel dilatation versus 02/28/2020.
[2020-03-01] MEDS: ONDANSETRON 4 MG/2 ML VIAL IVP SCH ×5 (00:10→22:58)
[2020-03-01] MEDS: D5-0.45% NACL WITH KCL 20MEQ/L 1,000 ML IV SCH ×3 (01:46→19:11)
[2020-03-01] MEDS: SODIUM CHLORIDE 0.9% 1,000 ML IV SCH ×2 (05:18→18:14)
[2020-03-01] MEDS: ENOXAPARIN 30 MG/0.3 ML SYRINGE SQ SCH (09:06)
[2020-03-01] MEDS: PANTOPRAZOLE 40 MG/10 ML VIAL IV SCH (09:10)
--- NOTE | 2020-03-01 13:03 | P.PN ---
<Toña Castro - Last Filed: 03/01/20 12:58> Subjective Progress Note Date: 03/01/20 CHIEF COMPLAINT: Small bowel obstruction HISTORY OF PRESENT ILLNESS: The patient is a 64-year-old male recently hospitalized for acute diverticular bleed who then developed acute small bowel obstruction. He was treated at that time with conservative management with nasogastric tube decompression including nothing by mouth status. He is currently hospitalized again with recurrent small bowel obstruction. Patient reports that he is feeling better. He has taken a shower this morning. He having some abdominal pain around the umbilical area. He is passing gas. He denies any nausea or vomiting. NG tube was removed yesterday and he is tolerating a clear liquid diet. Afebrile. PHYSICAL EXAM: VITAL SIGNS: Reviewed GENERAL: Well-developed in no acute distress. HEENT: No sclera icterus. Extraocular movements grossly intact. Moist buccal mucosa. Head is atraumatic, normocephalic. Hears conversational speech. No nasal kathrin inage. NECK: Supple without lymphadenopathy. CHEST: Non-labored respirations and equal bilateral excursions. CARDIOVASCULAR: Palpable 2+ radial pulses. ABDOMEN: Soft. Decrease in abdominal distention MUSCULOSKELETAL: No clubbing or cyanosis. NEUROLOGIC: No focal or lateralizing signs. Cranial nerves II through XII grossly intact. PSYCH: Appropriate affect. Alert and oriented to person, place and time. SKIN: Well perfused. Good skin turgor. ASSESSMENT: 1. Recurrent small bowel obstruction 2. Recent diverticular bleed 3. History of sigmoid diverticulosis with diverticulitis 4. Incisional hernia PLAN: -Advance diet to full liquids -Repeat abdominal x-ray and a.m. -Ordered abdominal binder for support Physician Call Center Rn note has been reviewed by physician. Signing provider agrees with the documented findings, assessment, and plan of care. Objective - Vital Signs Vital signs: Vital Signs Temp 97.5 F L 03/01/20 07:45 Pulse 69 03/01/20 07:45 Resp 16 03/01/20 07:45 BP 94/61 03/01/20 07:45 Pulse Ox 94 L 03/01/20 07:45 Intake & Output 02/29/20 03/01/20 03/01/20 18:59 06:59 18:59 Intake Total 200 Balance 200 Intake: Oral 200 Other: Voiding Method Urinal Toilet Urinal # Voids 1 2 # Bowel Movements 1 - Labs CBC & Chem 7: 02/29/20 06:01 02/29/20 06:01 <Trinh Lynn N - Last Filed: 03/01/20 19:11> Subjective As above. Please see additional recommendations and comments below. HISTORY OF PRESENT ILLNESS: The patient is a 64-year-old male who presents with recurrent small bowel obstruction. He's tolerating clear liquid diet. He is passing flatus. He does report pre-existing periumbilical pain for history of incisional hernia. REVIEW OF ORGAN SYSTEMS: Pain. No distant exertion. PHYSICAL EXAM: VITALS: Reviewed CONSTITUTIONAL: Well developed and in no acute distress. EYES: Conjuctivae without sclera icterus. Extraocular movements grossly intact. HEAD, EARS, NOSE, THROAT: Moist buccal mucosa. Head is atraumatic, normocephalic. Hears conversational speech. No nasal drainage. NECK: Supple. RESPIRATORY: Non-labored respirations and equal bilateral excursions. No gross wheezes. CARDIOVASCULAR: Palpable 2+ radial pulses. ABDOMEN: Soft. Protuberant. Well healed upper midline incision MUSCULOSKELETAL: No clubbing cyanosis. SKIN: Warm and well perfused with good skin turgor. NEUROLOGIC: Cranial nerves II through XII grossly intact. No focal or lateralizing signs. PSYCH: Appropriate affect. Alert and oriented to person, place and time. Displays appropriate insight. CLINCAL LABS: No new labs ASSESSMENT: 1. Recurrent small bowel obstruction 2. Recent diverticular bleed 3. History of sigmoid diverticulosis with diverticulitis 4. Incisional hernia PLAN: 1. Diet advance to full liquid diet. 2. Disposition pending tolerating soft diet. 3. Repeat abdominal films tomorrow. 4. Repeat CBC to assess anemia Objective - Vital Signs Vital signs: Vital Signs Temp 98.1 F 03/01/20 15:27 Pulse 66 03/01/20 17:18 Resp 16 03/01/20 15:27 BP 114/67 03/01/20 15:27 Pulse Ox 97 03/01/20 15:27 Intake & Output 03/01/20 03/01/20 03/02/20 06:59 18:59 06:59 Intake Total 1080 Balance 1080 Intake: Oral 1080 Other: Voiding Method Toilet Urinal # Voids 2 3 - Labs CBC & Chem 7: 02/29/20 06:01 02/29/20 06:01 Assessment and Plan (1) Small bowel obstruction Current Visit: Yes Status: Acute Code(s): K56.69 - OTHER INTESTINAL OBSTRUCTION * DO NOT USE * SNOMED Code(s): 615351741 (2) Abdominal bloating Current Visit: No Status: Acute Code(s): R14.0 - ABDOMINAL DISTENSION (GASEOUS) SNOMED Code(s): 567926914 (3) Chronic abdominal pain Current Visit: No Status: Acute Code(s): R10.9 - UNSPECIFIED ABDOMINAL PAIN; G89.29 - OTHER CHRONIC PAIN SNOMED Code(s): 711670027 (4) Anemia Current Visit: Yes Status: Acute Code(s): D64.9 - ANEMIA, UNSPECIFIED SNOMED Code(s): 468679543
[2020-03-01] MEDS: HYDROmorphone 1 MG/ML 1 ML SYRINGE IVP PRN ×2 (20:23→22:58)
[2020-03-02] MEDS: D5-0.45% NACL WITH KCL 20MEQ/L 1,000 ML IV SCH ×3 (02:59→20:44)
[2020-03-02] MEDS: ONDANSETRON 4 MG/2 ML VIAL IVP SCH ×3 (06:17→19:11)
[2020-03-02 06:59] LABS: Basophils # (A) 0.1 k/uL (0-0.2); Basophils % (A) 1 %; Eosinophils # (A) 0.3 k/uL (0-0.7); Eosinophils % (A) 6 %; HCT 32.8 % (39.0-53.0); HGB 10.5 gm/dL (13.0-17.5); Hypochromasia Moderate; Lymphocytes # (A) 1.7 k/uL (1.0-4.8); Lymphocytes % (A) 35 %; MCH 31.4 pg (25.0-35.0); MCHC 31.9 g/dL (31.0-37.0); MCV 98.4 fL (80.0-100.0); Mean Platelet Volume 6.8; Monocytes # (A) 0.3 k/uL (0-1.0); Monocytes % (A) 7 %; Neutrophils # (A) 2.3 k/uL (1.3-7.7); Neutrophils % (A) 47 %; Platelet Count 388 k/uL (150-450); Poikilocytosis Slight; RBC 3.33 m/uL (4.30-5.90); WBC 4.9 k/uL (3.8-10.6)
--- NOTE | 2020-03-02 09:32 | XR ---
2 view abdomen HISTORY: Bowel obstruction 2 views the abdomen on 3 images correlated to prior abdomen 02/29/2020 The orogastric tube has been removed. Surgical clips present in the left upper quadrant. Lung bases a re stable. No evident pneumoperitoneum. There are some air-fluid levels and distended loop of bowel i s present in the mid abdomen. No pathologic calcification evident. IMPRESSION: Difficult to exclude bowel obstruction, correlate.
[2020-03-02] MEDS: PANTOPRAZOLE 40 MG/10 ML VIAL IV SCH (09:58)
[2020-03-02] MEDS: ENOXAPARIN 30 MG/0.3 ML SYRINGE SQ SCH (09:58)
--- NOTE | 2020-03-02 12:32 | P.PN ---
<TeriToña salcido - Last Filed: 03/02/20 12:25> Subjective Progress Note Date: 03/02/20 CHIEF COMPLAINT: Small bowel obstruction HISTORY OF PRESENT ILLNESS: The patient is a 64-year-old male recently hospitalized for acute diverticular bleed who then developed acute small bowel obstruction. He was treated at that time with conservative management with nasogastric tube decompression including nothing by mouth status. He is currently hospitalized again with recurrent small bowel obstruction. Patient reports that yesterday after eating both a lunch and at dinner he started to have severe abdominal pain radiating added about a 7 out of 10. He did require a few doses of IV pain medication. This morning his pain has been doing better he is passing more gas. He denies any nausea or vomiting. He did have some bang rrhea but no blood in the stools. He is afebrile. Currently on a full liquid diet. WBC 4.9 hemoglobin 10.5 Abdominal x-ray Per radiology Difficult to exclude bowel obstruction Correlate PHYSICAL EXAM: VITAL SIGNS: Reviewed GENERAL: Well-developed in no acute distress. HEENT: No sclera icterus. Extraocular movements grossly intact. Moist buccal mucosa. Head is atraumatic, normocephalic. Hears conversational speech. No nasal drainage. NECK: Supple without lymphadenopathy. CHEST: Non-labored respirations and equal bilateral excursions. CARDIOVASCULAR: Palpable 2+ radial pulses. ABDOMEN: Soft. Tenderness with palpation of the middle abdomen near the umbilicus MUSCULOSKELETAL: No clubbing or cyanosis. NEUROLOGIC: No focal or lateralizing signs. Cranial nerves II through XII autumn ssly intact. PSYCH: Appropriate affect. Alert and oriented to person, place and time. SKIN: Well perfused. Good skin turgor. ASSESSMENT: 1. Recurrent small bowel obstruction 2. Recent diverticular bleed 3. History of sigmoid diverticulosis with diverticulitis 4. Incisional hernia PLAN: -Advance diet to low fiber and monitor. Patient may require exploratory laparotomy and small bowel resection with Dr. Lynn if he is not tolerating diet and having abdominal pain -We'll have nursing staff obtain a bariatric size abdominal binder Physician Front End Specialist note has been reviewed by physician. Signing provider agrees with the documented findings, assessment, and plan of care. Objective - Vital Signs Vital signs: Vital Signs Temp 98.3 F 03/02/20 08:34 Pulse 89 03/02/20 08:34 Resp 17 03/02/20 08:34 BP 99/65 03/02/20 08:34 Pulse Ox 93 L 03/02/20 07:00 Intake & Output 03/01/20 03/02/20 03/02/20 18:59 06:59 18:59 Intake Total 1080 Balance 1080 Intake: Oral 1080 Other: Voiding Method Toilet Urinal # Voids 3 0 - Labs CBC & Chem 7: 03/02/20 06:23 02/29/20 06:01 Labs: Abnormal Lab Results - Last 24 Hours (Table) 03/02/20 Range/Units 06:23 RBC 3.33 L (4.30-5.90) m/uL Hgb 10.5 L (13.0-17.5) gm/dL Hct 32.8 L (39.0-53.0) % <Trinh Lynn N - Last Filed: 03/02/20 15:49> Subjective As above. Please see additional recommendations and comments below. HISTORY OF PRESENT ILLNESS: The patient is a 64-year-old male admitted for recurrent small bowel obstruction. The last several days his been able to tolerate ice chips, clear liquids, full liquids. Overnight he did have abdominal pain which she reports has improved today. Still reports upper abdominal pain consistent with his incisional hernia. He is passing flatus. REVIEW OF ORGAN SYSTEMS: No chest pain. No dyspnea and exertion. PHYSICAL EXAM: VITALS: Reviewed CONSTITUTIONAL: Well developed and in no acute distress. EYES: Conjuctivae without sclera icterus. Extraocular movements grossly intact. HEAD, EARS, NOSE, THROAT: Moist buccal mucosa. Head is atraumatic, normocephalic. Hears conversational speech. No nasal drainage. NECK: Supple. RESPIRATORY: Non-labored respirations and equal bilateral excursions. No gross wheezes. CARDIOVASCULAR: Palpable 2+ radial pulses. ABDOMEN: Soft. Protuberant. Well healed upper midline incision. No peritonitis. Tender upper midabdomen. MUSCULOSKELETAL: No clubbing cyanosis. SKIN: Warm and well perfused with good skin turgor. NEUROLOGIC: Cranial nerves II through XII grossly intact. No focal or lateralizing signs. PSYCH: Appropriate affect. Alert and oriented to person, place and time. Displays appropriate insight. CLINCAL LABS: No new labs. Hemoglobin 9.6 up to 10.5. No new blood transfusions. STUDIES: Abdominal x-ray independently reviewed demonstrating air and gas within the small bowel and colon. Full air along the mid abdomen with mild dilation of small intestine. ASSESSMENT: 1. Recurrent small bowel obstruction 2. Recent diverticular bleed 3. History of sigmoid diverticulosis with diverticulitis 4. Incisional hernia 5. History of acute blood loss anemia PLAN: 1. We will challenge with soft diet. Should he fail soft diet then surgical intervention with lysis of adhesions described. 2. Patient reports intermittent hospitalizations for over 2 weeks for which he is seeking short-term disability. Objective - Vital Signs Vital signs: Vital Signs Temp 98.2 F 03/02/20 15:00 Pulse 64 03/02/20 15:00 Resp 21 03/02/20 12:55 BP 112/69 03/02/20 15:00 Pulse Ox 95 03/02/20 15:00 Intake & Output 03/01/20 03/02/20 03/02/20 18:59 06:59 18:59 Intake Total 1080 Balance 1080 Intake: Oral 1080 Other: Voiding Method Toilet Urinal # Voids 3 0 2 - Labs CBC & Chem 7: 03/02/20 06:23 02/29/20 06:01 Labs: Abnormal Lab Results - Last 24 Hours (Table) 03/02/20 Range/Units 06:23 RBC 3.33 L (4.30-5.90) m/uL Hgb 10.5 L (13.0-17.5) gm/dL Hct 32.8 L (39.0-53.0) % Assessment and Plan (1) Small bowel obstruction Current Visit: Yes Status: Acute Code(s): K56.69 - OTHER INTESTINAL OBSTRUCTION * DO NOT USE * SNOMED Code(s): 487000600 (2) Abdominal bloating Current Visit: No Status: Acute Code(s): R14.0 - ABDOMINAL DISTENSION (GASEOUS) SNOMED Code(s): 303785133 (3) Chronic abdominal pain Current Visit: No Status: Acute Code(s): R10.9 - UNSPECIFIED ABDOMINAL PAIN; G89.29 - OTHER CHRONIC PAIN SNOMED Code(s): 060618097 (4) Anemia Current Visit: Yes Status: Acute Code(s): D64.9 - ANEMIA, UNSPECIFIED SNOMED Code(s): 510583307
[2020-03-02] MEDS: HYDROmorphone 1 MG/ML 1 ML SYRINGE IVP PRN ×3 (14:06→18:36)
[2020-03-03] MEDS: ONDANSETRON 4 MG/2 ML VIAL IVP SCH ×4 (00:51→19:35)
[2020-03-03] MEDS: D5-0.45% NACL WITH KCL 20MEQ/L 1,000 ML IV SCH ×3 (04:58→23:45)
[2020-03-03] MEDS: PANTOPRAZOLE 40 MG/10 ML VIAL IV SCH (09:01)
[2020-03-03] MEDS: ENOXAPARIN 30 MG/0.3 ML SYRINGE SQ SCH (09:01)
--- NOTE | 2020-03-03 09:47 | P.HPADDEND ---
H&P Addendum H&P Addendum Date: 03/03/20 Patient seen and evaluated. Reports recurrent bowel obstruction symptoms including moderate abdominal pain after diet. Patient has pre-existing history of small bowel obstruction: High-grade type. We'll proceed with exploratory laparotomy, lysis of adhesions possible small bowel resection. All questions were addressed. Patient concerned about short-term disability and questions addressed.
[2020-03-03 13:30] VITALS: BMI 32.3
[2020-03-03] MEDS ORDERED: IV FLUID CONTINUATION 1,000 ML IV ONE (13:46)
[2020-03-03] MEDS ORDERED: LACTATED RINGERS 1,000 ML IV ONE ×2 (14:45→16:15)
[2020-03-03] MEDS ORDERED: GLYCOPYRROLATE 0.2 MG/ML 2 ML VIAL ONE (15:30)
[2020-03-03] MEDS ORDERED: ONDANSETRON 4 MG/2 ML VIAL ONE (15:30)
[2020-03-03] MEDS ORDERED: ROCURONIUM 10 MG/ML (10 ML VIAL) IV ONE (15:30)
[2020-03-03] MEDS ORDERED: PROPOFOL 10 MG/ML 20 ML VIAL IV ONE (15:30)
[2020-03-03] MEDS ORDERED: HYDROmorphone (PF) 1 MG/ML ONE (15:30)
[2020-03-03] MEDS ORDERED: fentaNYL (PF) 50 MCG/ML 2 ML AMP ONE (15:30)
[2020-03-03] MEDS ORDERED: NEOSTIGMINE 1 MG/ML 10 ML VIAL ONE (15:30)
[2020-03-03] MEDS ORDERED: SUCCINYLCHOLINE CHLORIDE 100 MG/5 ML SYR IV ONE (15:30)
[2020-03-03] MEDS ORDERED: MIDAZOLAM 2 MG/2 ML VIAL ONE (15:30)
[2020-03-03] MEDS ORDERED: LIDOCAINE 1% INJ 10MG/ML (20 ML MDV) ONE (15:30)
[2020-03-03] MEDS ORDERED: HYDROmorphone 0.5 MG/0.5 ML SYRINGE IVP ONE ×2 (18:54→18:59)
[2020-03-03] MEDS: HYDROmorphone 1 MG/ML 1 ML SYRINGE IVP ONE ×2 (19:07→19:12)
--- NOTE | 2020-03-03 19:42 | P.OP ---
Date of Procedure: 03/03/20 Description of Procedure: SURGEON: HORTENCIA MOTA MD RURAL SERVICE ENGINEER: NONE PREOPERATIVE DIAGNOSES: 1. History of multiple recurrent small bowel obstructions 2. History of recent diverticular sigmoid colon bleeding with acute blood loss anemia 3. Symptomatic incisional hernia 4. Chronic abdominal pain 5. History of peritoneal adhesions 6. Gastroesophageal reflux disease 7. Obesity due to excess calories, BMI 32.3 POSTOPERATIVE DIAGNOSES: 1. History of multiple recurrent small bowel obstructions 2. History of recent diverticular sigmoid colon bleeding with acute blood loss anemia 3. Symptomatic incisional hernia 4. Chronic abdominal pain 5. History of peritoneal adhesions 6. Gastroesophageal reflux disease 7. Obesity due to excess calories, BMI 32.3 Procedure(s) Performed: 1. Exploratory laparotomy with extensive lysis of adhesions over 3 hrs 2. Application of PREVENA wound vac 20-cm Anesthesia: GETA, local EBL: 50 mL Pathology: none sent Condition: stable Disposition: floor Operative Findings: 1. Severe adhesions throughout abdomen 2. Appendix identified 3. Multiple incisional hernias repaired 4. The responsible adhesive band was found at the right upper quadrant incorporating the proximal transverse colon mesocolon creating a tight adhesive band. INDICATIONS: The patient is a 64-year-old male with a complex surgical history including recent sigmoid diverticular bleeding with acute blood loss anemia who presented to the hospital with small bowel obstruction. Despite conservative me asures, patient did not improve. Diagnostic studies were consistent with high- grade small bowel obstruction. Surgical intervention was discussed with the patient including possible small bowel resection. Benefits and risks were thoroughly described. Informed consent had been obtained. DESCRIPTION OF PROCEDURE: The patient was brought to the operating room, laid in supine position. After general induction, the abdomen had been prepped and draped in a standard sterile fashion. A Shelley catheter was placed. Additionally, orogastric tube was placed by the anesthesia provider. Prior to incision, a timeout protocol was performed by the surgical team regarding the patient's name including procedures being performed. Entry into the abdomen had occurred at the xiphoid into the peritoneum. Multiple abdominal wall hernias were identified and incorporated upon entry into the abdomen. Immediately dense adhesions were found along the abdominal wall whereby digital palpation and blunt dissection were performed. Next, the rest of the abdominal cavity was entered using electro-Bovie cautery without any injury to bowel. Moderate interloop adhesions which were dense including to the abdominal wall was also confirmed. Using a Metzenbaum scissor, sharp dissection was performed. Cautious dissection was performed using primarily sharp dissection. Once the distal jejunum and ileum were freed, rest of the lysis of adhesions had occurred proximally. For the duodenum and proximal jejunum, moderate adhesions were encountered. Moderate adhesions were confirmed primarily affecting the mid-jejunum distally, which were all completely lysed. The ascending colon including appendix was identified after extensive lysis of adhesions. Extensive lysis of adhesions had occurred for over 3 hours. Next, the bowel was once again ran from the ligament of Treitz distally to the ileocecal valve. All adhesions were lysed. The responsible adhesive band was found at the right upper quadrant incorporating the proximal transverse colon mesocolon creating a tight adhesive band. Hemostasis was checked. Next, the abdomen was closed using double-stranded 0-PDS proximally and distally. Stainless skin luis were applied. A PREVENA wound vac system was placed. At the end of the procedure, the sponge needle and instrument count were verified correct by the ophthalmic surgical assistant. Shelley catheter including nasogastric tube were discontinued. The patient was transferred to the postanesthesia care unit in stable condition.
[2020-03-03] MEDS: HYDROmorphone PCA 10 MG/50 ML BAG IV PRN (21:47)
[2020-03-03] MEDS: KETOROLAC 15 MG/ML 1 ML VIAL IVP SCH (23:59)
[2020-03-04] MEDS: D5-0.45% NACL WITH KCL 20MEQ/L 1,000 ML IV SCH ×2 (01:53→09:23)
[2020-03-04] MEDS: KETOROLAC 15 MG/ML 1 ML VIAL IVP SCH ×3 (06:21→17:31)
[2020-03-04] MEDS: ONDANSETRON 4 MG/2 ML VIAL IVP SCH ×4 (06:21→18:14)
[2020-03-04 07:17] LABS: Basophils % (A) 0 %; Eosinophils # (A) 0.4 k/uL (0-0.7); Eosinophils % (A) 2 %; HGB 12.7 gm/dL (13.0-17.5); Hypochromasia Moderate; Lymphocytes # (A) 0.5 k/uL (1.0-4.8); Lymphocytes % (A) 3 %; MCH 30.3 pg (25.0-35.0); MCV 97.8 fL (80.0-100.0); Monocytes # (A) 0.6 k/uL (0-1.0); Monocytes % (A) 3 %; Neutrophils # (A) 16.6 k/uL (1.3-7.7); Neutrophils % (A) 90 %; Platelet Count 413 k/uL (150-450); RBC 4.19 m/uL (4.30-5.90); RDW 14.1 % (11.5-15.5); WBC 18.4 k/uL (3.8-10.6)
[2020-03-04 09:02] LABS: ALT 15 U/L (4-49); AST 20 U/L (17-59); African American GFR (CKD) >90 (>60 ml/min/1.73 sqM); Albumin 3.3 g/dL (3.5-5.0); Albumin/Globulin Ratio 1.3; Alkaline Phosphatase 66 U/L (38-126); Anion Gap 7 mmol/L; Blood Urea Nitrogen 12 mg/dL (9-20); Calcium 8.5 mg/dL (8.4-10.2); Carbon Dioxide 27 mmol/L (22-30); Chloride 103 mmol/L (98-107); Globulin 2.6 g/dL; Glucose 127 mg/dL (74-99); Magnesium 1.7 mg/dL (1.6-2.3); Non-African American GFR(CKD) 81 (>60 ml/min/1.73 sqM); Phosphorus 5.1 mg/dL (2.5-4.5); Potassium 5.3 mmol/L (3.5-5.1); Sodium 137 mmol/L (137-145); Total Bilirubin 0.6 mg/dL (0.2-1.3); Total Protein 5.9 g/dL (6.3-8.2)
[2020-03-04] MEDS: PANTOPRAZOLE 40 MG/10 ML VIAL IV SCH (09:24)
[2020-03-04] MEDS: ENOXAPARIN 30 MG/0.3 ML SYRINGE SQ SCH (09:24)
[2020-03-04] MEDS: HYDROmorphone PCA 10 MG/50 ML BAG IV PRN (09:25)
[2020-03-04] MEDS: SODIUM CHLORIDE 0.9% 1,000 ML IV SCH ×2 (09:37→17:32)
[2020-03-04] MEDS: PIPERACILLIN-TAZOBACTAM 3.375 GM in SODIUM CHLORIDE 0.9% 100 ML IVPB SCH ×2 (10:50→17:31)
[2020-03-04] MEDS: MAGNESIUM SULFATE-D5W PMX 1 GM in DEXTROSE/WATER 1 100ML.BAG IVPB SCH ×3 (10:51→14:20)
--- NOTE | 2020-03-04 16:33 | P.PN ---
Subjective Progress Note Date: 03/04/20 CHIEF COMPLAINT: Recurrent small bowel obstruction HISTORY OF PRESENT ILLNESS: The patient is a 64-year-old male admitted for recurrent small bowel obstruction. He is status post extensive lysis of adhesi ons yesterday, 03/03/2020. He is postop day 1. He reports severe 10/10 incisional pain despite his PLASTIC SURGERY ASSISTANT. "I am in too much pain." No flatus. No bowel movements. Epidural prior to surgery was contraindicated due to Lovenox. REVIEW OF ORGAN SYSTEMS: No chest pain. No dyspnea and exertion. PHYSICAL EXAM: VITALS: Reviewed CONSTITUTIONAL: Well developed and in no acute distress. EYES: Conjuctivae without sclera icterus. Extraocular movements grossly intact. HEAD, EARS, NOSE, THROAT: Moist buccal mucosa. Head is atraumatic, normocephalic. Hears conversational speech. No nasal drainage. NECK: Supple. RESPIRATORY: Non-labored respirations and equal bilateral excursions. No gross wheezes. CARDIOVASCULAR: Palpable 2+ radial pulses. ABDOMEN: Incisions intact. Dressing intact. PREVENA vac adjusted without leak. Abdominal binder adjusted. MUSCULOSKELETAL: No clubbing cyanosis. SKIN: Warm and well perfused with good skin turgor. NEUROLOGIC: Cranial nerves II through XII grossly intact. No focal or lateralizing signs. PSYCH: Appropriate affect. Alert and oriented to person, place and time. Displays appropriate insight. CLINCAL LABS: Hemoglobin up from 4.9-18.4, per surgical response. Hemoglobin of 10.5-12.5. Potassium elevated 4.0-5.3. ASSESSMENT: 1. Recurrent small bowel obstruction 2. Status post extensive lysis of adhesions PLAN: 1. Nothing by mouth status with lysis popsicles pending flatus 2. Toradol scheduled as he had no further GI bleed 3. Ofirmev scheduled for pain management 4. Neurontin for post-incisional pain. Objective - Vital Signs Vital signs: Vital Signs Temp 97.6 F 03/04/20 07:00 Pulse 95 03/04/20 07:00 Resp 16 03/04/20 01:50 BP 102/69 03/04/20 07:00 Pulse Ox 95 03/04/20 07:00 Intake & Output 03/03/20 03/04/20 03/04/20 18:59 06:59 18:59 Intake Total 2150 250 Output Total 400 Balance 1750 250 Weight 107.955 kg Intake: IV 2150 250 Output: Urine 350 Estimated Blood Loss 50 Other: Voiding Method Toilet Urinal # Voids 1 2 - Labs CBC & Chem 7: 03/04/20 06:34 03/04/20 06:34 Labs: Abnormal Lab Results - Last 24 Hours (Table) 03/04/20 03/04/20 Range/Units 06:34 06:34 WBC 18.4 H (3.8-10.6) k/uL RBC 4.19 L (4.30-5.90) m/uL Hgb 12.7 L (13.0-17.5) gm/dL Neutrophils # 16.6 H (1.3-7.7) k/uL Lymphocytes # 0.5 L (1.0-4.8) k/uL Potassium 5.3 H (3.5-5.1) mmol/L Glucose 127 H (74-99) mg/dL Phosphorus 5.1 H (2.5-4.5) mg/dL Total Protein 5.9 L (6.3-8.2) g/dL Albumin 3.3 L (3.5-5.0) g/dL Assessment and Plan (1) Small bowel obstruction Current Visit: Yes Status: Acute Code(s): K56.69 - OTHER INTESTINAL OBSTRUCTION * DO NOT USE * SNOMED Code(s): 906568538 (2) Abdominal bloating Current Visit: No Status: Acute Code(s): R14.0 - ABDOMINAL DISTENSION (GASEOUS) SNOMED Code(s): 830568975 (3) Chronic abdominal pain Current Visit: No Status: Acute Code(s): R10.9 - UNSPECIFIED ABDOMINAL PAIN; G89.29 - OTHER CHRONIC PAIN SNOMED Code(s): 561935462 (4) Anemia Current Visit: Yes Status: Acute Code(s): D64.9 - ANEMIA, UNSPECIFIED SNOMED Code(s): 578304430 (5) Peritoneal adhesions Current Visit: No Status: Acute Code(s): K66.0 - PERITONEAL ADHESIONS (POSTPROCEDURAL) (POSTINFECTION) SNOMED Code(s): 19830348 (6) Small bowel obstruction due to adhesions Current Visit: No Status: Acute Code(s): K56.50 - INTESTNL ADHESIONS, UNSP TO PARTIAL VERSUS COMPLETE OBST SNOMED Code(s): 260310477
[2020-03-04] MEDS: ACETAMINOPHEN IV (For NPO) 1,000 MG in EMPTY BAG 1 BAG IVPB SCH (17:32)
[2020-03-04] MEDS: GABAPENTIN 300 MG CAP PO SCH ×2 (18:12→21:25)
[2020-03-05] MEDS: PIPERACILLIN-TAZOBACTAM 3.375 GM in SODIUM CHLORIDE 0.9% 100 ML IVPB SCH ×4 (01:11→23:32)
[2020-03-05] MEDS: ACETAMINOPHEN IV (For NPO) 1,000 MG in EMPTY BAG 1 BAG IVPB SCH ×3 (01:12→12:28)
[2020-03-05] MEDS: KETOROLAC 15 MG/ML 1 ML VIAL IVP SCH ×5 (01:12→23:32)
[2020-03-05] MEDS: ONDANSETRON 4 MG/2 ML VIAL IVP SCH ×3 (01:12→12:25)
[2020-03-05] MEDS: SODIUM CHLORIDE 0.9% 1,000 ML IV SCH ×4 (01:13→23:32)
[2020-03-05] MEDS: HYDROmorphone PCA 10 MG/50 ML BAG IV PRN ×2 (01:28→16:13)
[2020-03-05 06:38] LABS: Basophils % (A) 0 %; Eosinophils # (A) 0.8 k/uL (0-0.7); Eosinophils % (A) 7 %; HCT 33.8 % (39.0-53.0); HGB 10.5 gm/dL (13.0-17.5); Hypochromasia Marked; Lymphocytes # (A) 0.7 k/uL (1.0-4.8); Lymphocytes % (A) 6 %; MCH 30.6 pg (25.0-35.0); MCV 98.9 fL (80.0-100.0); Mean Platelet Volume 6.9; Monocytes # (A) 0.6 k/uL (0-1.0); Monocytes % (A) 5 %; Neutrophils # (A) 9.3 k/uL (1.3-7.7); Neutrophils % (A) 80 %; Platelet Count 365 k/uL (150-450); RBC 3.41 m/uL (4.30-5.90); WBC 11.6 k/uL (3.8-10.6)
[2020-03-05] MEDS: GABAPENTIN 300 MG CAP PO SCH ×3 (08:20→21:24)
[2020-03-05] MEDS: PANTOPRAZOLE 40 MG/10 ML VIAL IV SCH (08:20)
[2020-03-05] MEDS: ENOXAPARIN 30 MG/0.3 ML SYRINGE SQ SCH (08:20)
[2020-03-05 10:32] LABS: African American GFR (CKD) 90.5 (60.0-200.0); Calcium 7.9 mg/dL (8.7-10.3); Magnesium 2.4 mg/dL (1.5-2.4); Non-African American GFR(CKD) 78.1 (60.0-200.0); Potassium 4.6 mmol/L (3.5-5.5)
--- NOTE | 2020-03-05 12:22 | P.PN ---
Subjective Progress Note Date: 03/05/20 CHIEF COMPLAINT: Recurrent small bowel obstruction HISTORY OF PRESENT ILLNESS: The patient is a 64-year-old male admitted for recurrent small bowel obstruction. He has history of chronic abdominal pain. He is postoperative day 2 following extensive lysis of adhesions for small bowel obstruction. Yesterday, pain management included IV Tylenol and IV ibuprofen in addition to continue SPORTS THERAPIST. He still reports moderate incisional pain. No flatus or bowel movements. He is ambulating to the rest room. REVIEW OF ORGAN SYSTEMS: No chest pain. No dyspnea and exertion. PHYSICAL EXAM: VITALS: Reviewed CONSTITUTIONAL: Well developed and in no acute distress. EYES: Conjuctivae without sclera icterus. Extraocular movements grossly intact. HEAD, EARS, NOSE, THROAT: Moist buccal mucosa. Head is atraumatic, normocephalic. Hears conversational speech. No nasal drainage. NECK: Supple. RESPIRATORY: Non-labored respirations and equal bilateral excursions. No gross wheezes. CARDIOVASCULAR: Palpable 2+ radial pulses. ABDOMEN: Incisions intact. Dressing intact. PREVENA vac adjusted without leak. Abdominal binder adjusted. MUSCULOSKELETAL: No clubbing cyanosis. SKIN: Warm and well perfused with good skin turgor. NEUROLOGIC: Cranial nerves II through XII grossly intact. No focal or lateralizing signs. PSYCH: Appropriate affect. Alert and oriented to person, place and time. Displays appropriate insight. CLINCAL LABS: WBC improved from 18,000-11,000. Hemoglobin of 10.5-12.5, now 10.5. Potassium improved from 5.3-4.6 ASSESSMENT: 1. Recurrent small bowel obstruction 2. Status post extensive lysis of adhesions 3. Postoperative pain management PLAN: 1. Continue nothing by mouth pending flatus and bowel function 2. Will consult pain management for options +/- epidural 3. May need TPN for prolonged NPO status after Friday. 4. Care plan discussed with patient for start of Entereg, pain specialist and TPN. Objective - Vital Signs Vital signs: Vital Signs Temp 98.2 F 03/05/20 07:00 Pulse 78 03/05/20 07:00 Resp 16 03/05/20 07:00 BP 95/60 03/05/20 07:00 Pulse Ox 94 L 03/05/20 07:00 Intake & Output 03/04/20 03/05/20 03/05/20 19:59 06:59 18:59 Intake Total Balance Intake: Intake, IV Titration Amount D5-0.45% NaCl with KCl 20Meq/l 1,000 ml @ 130 mls/hr IV .Q7H42M [facility] Rx# :[id number] Magnesium Sulfate-D5w Pmx 1 gm In Dextrose/Water 1 100ml.bag @ 100 mls/hr IVPB Q1H [facility] Rx#: [id number] Piperacillin-Tazobactam 3 .375 gm In Sodium Chloride 0.9% 100 ml @ 25 mls/hr IVPB Q8HR [facility] Rx# :[id number] Sodium Chloride 0.9% 1, 000 ml @ 130 mls/hr IV . Q7H42M [facility] Rx#:[id number] Other: Voiding Method # Voids - Labs CBC & Chem 7: 03/05/20 06:20 03/05/20 06:20 Labs: Abnormal Lab Results - Last 24 Hours (Table) 03/05/20 03/05/20 Range/Units 06:20 06:20 WBC 11.6 H (3.8-10.6) k/uL RBC 3.41 L (4.30-5.90) m/uL Hgb 10.5 L (13.0-17.5) gm/dL Hct 33.8 L (39.0-53.0) % Neutrophils # 9.3 H (1.3-7.7) k/uL Lymphocytes # 0.7 L (1.0-4.8) k/uL Eosinophils # 0.8 H (0-0.7) k/uL Glucose 118 H (70-110) mg/dL Calcium 7.9 L (8.7-10.3) mg/dL Assessment and Plan (1) Small bowel obstruction Current Visit: Yes Status: Acute Code(s): K56.69 - OTHER INTESTINAL OBSTRUCTION * DO NOT USE * SNOMED Code(s): 789659993 (2) Abdominal bloating Current Visit: No Status: Acute Code(s): R14.0 - ABDOMINAL DISTENSION (GASEOUS) SNOMED Code(s): 173345916 (3) Chronic abdominal pain Current Visit: No Status: Acute Code(s): R10.9 - UNSPECIFIED ABDOMINAL PAIN; G89.29 - OTHER CHRONIC PAIN SNOMED Code(s): 164344103 (4) Anemia Current Visit: Yes Status: Acute Code(s): D64.9 - ANEMIA, UNSPECIFIED SNO MED Code(s): 852039431 (5) Peritoneal adhesions Current Visit: No Status: Acute Code(s): K66.0 - PERITONEAL ADHESIONS (POSTPROCEDURAL) (POSTINFECTION) SNOMED Code(s): 26132873 (6) Small bowel obstruction due to adhesions Current Visit: No Status: Acute Code(s): K56.50 - INTESTNL ADHESIONS, UNSP TO PARTIAL VERSUS COMPLETE OBST SNOMED Code(s): 186670876
[2020-03-05] MEDS: ALVIMOPAN 12 MG CAPSULE PO SCH ×2 (12:27→21:24)
[2020-03-05] MEDS ORDERED: ONDANSETRON 4 MG/2 ML VIAL IVP PRN (14:57)
[2020-03-05] MEDS: tiZANidine 4 MG TAB PO SCH ×2 (16:14→21:24)
[2020-03-06 07:30] LABS: Basophils % (A) 0 %; Eosinophils # (A) 0.9 k/uL (0-0.7); Eosinophils % (A) 10 %; HCT 32.5 % (39.0-53.0); HGB 9.8 gm/dL (13.0-17.5); Hypochromasia Marked; Lymphocytes # (A) 0.8 k/uL (1.0-4.8); Lymphocytes % (A) 10 %; MCH 30.2 pg (25.0-35.0); MCHC 30.1 g/dL (31.0-37.0); MCV 100.3 fL (80.0-100.0); Macrocytosis Slight; Mean Platelet Volume 7.3; Monocytes # (A) 0.4 k/uL (0-1.0); Monocytes % (A) 5 %; Neutrophils # (A) 6.1 k/uL (1.3-7.7); Neutrophils % (A) 73 %; Platelet Count 308 k/uL (150-450); RBC 3.25 m/uL (4.30-5.90); RDW 13.9 % (11.5-15.5); WBC 8.4 k/uL (3.8-10.6)
[2020-03-06] MEDS ORDERED: PANTOPRAZOLE 40 MG/10 ML VIAL IV ONE (07:30)
[2020-03-06] MEDS: ALVIMOPAN 12 MG CAPSULE PO SCH ×2 (07:38→20:18)
[2020-03-06] MEDS: GABAPENTIN 300 MG CAP PO SCH ×3 (07:38→21:55)
[2020-03-06] MEDS: ENOXAPARIN 30 MG/0.3 ML SYRINGE SQ SCH (07:38)
[2020-03-06] MEDS: SODIUM CHLORIDE 0.9% 1,000 ML IV SCH ×2 (07:40→16:36)
[2020-03-06] MEDS: PIPERACILLIN-TAZOBACTAM 3.375 GM in SODIUM CHLORIDE 0.9% 100 ML IVPB SCH ×3 (07:40→23:17)
[2020-03-06] MEDS: tiZANidine 4 MG TAB PO SCH ×3 (07:41→21:55)
--- NOTE | 2020-03-06 11:02 | P.PN ---
<Toña Castro - Last Filed: 03/06/20 11:40> Subjective Progress Note Date: 03/06/20 CHIEF COMPLAINT: Recurrent small bowel obstruction HISTORY OF PRESENT ILLNESS: The patient is a 64-year-old male admitted for recurrent small bowel obstruction. He has history of chronic abdominal pain. He is postoperative day 3 following extensive lysis of adhesions for small bowel obstruction. 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 We are awaiting pain management evaluation. Patient's IV Tylenol and IV Toradol has been restarted. Patient denies any nausea or vomiting. Patient did pass gas. He has not had a bowel movement. He is afebrile. WBC has dropped from 11.6 to 8.4 Hgb 9.8 PHYSICAL EXAM: VITAL SIGNS: Reviewed GENERAL: Well-developed in no acute distress. HEENT: No sclera icterus. Extraocular movements grossly intact. Moist buccal mucosa. Head is atraumatic, normocephalic. Hears conversational speech. No nasal drainage. NECK: Supple without lymphadenopathy. CHEST: Non-labored respirations and equal bilateral excursions. CARDIOVASCULAR: Palpable 2+ radial pulses. ABDOMEN: Soft. Incision intact. Dressing intact. Prevena vac intact. Has abd ominal binder in place MUSCULOSKELETAL: No clubbing or cyanosis. NEUROLOGIC: No focal or lateralizing signs. Cranial nerves II through XII grossly intact. PSYCH: Appropriate affect. Alert and oriented to person, place and time. SKIN: Well perfused. Good skin turgor. ASSESSMENT: 1. Recurrent small bowel obstruction 2. Status post extensive lysis of adhesions 3. Postoperative pain management PLAN: -Patient to be seen by pain management service today. Patient may require epidural placement -Continue Entereg -Start patient on clear liquid diet -We will resume IV Tylenol and IV Toradol to help with pain control Physician Fast Food Crew Member note has been reviewed by physician. Signing provider agrees with the documented findings, assessment, and plan of care. Objective - Vital Signs Vital signs: Vital Signs Temp 98.5 F 03/06/20 07:00 Pulse 67 03/06/20 07:00 Resp 16 03/06/20 07:00 BP 100/63 03/06/20 07:00 Pulse Ox 98 03/06/20 07:00 Intake & Output 03/05/20 03/06/20 03/06/20 18:59 06:59 18:59 Intake Total 1240 Balance 1240 Intake: Intake, IV Titration 1240 Amount ACETAMINOPHEN IV (For NPO 100 ) 1,000 mg In Empty Bag 1 bag @ 400 mls/hr IVPB Q6HR [facility] Rx#:[id number] Piperacillin-Tazobactam 3 100 .375 gm In Sodium Chloride 0.9% 100 ml @ 25 mls/hr IVPB Q8HR [facility] Rx# :[id number] Sodium Chloride 0.9% 1, 1040 000 ml @ 130 mls/hr IV . Q7H42M [facility] Rx#:[id number] Other: Voiding Method Toilet # Voids 1 1 # Bowel Movements 0 - Labs CBC & Chem 7: 03/06/20 06:36 03/06/20 06:36 Labs: Abnormal Lab Results - Last 24 Hours (Table) 03/06/20 Range/Units 06:36 RBC 3.25 L (4.30-5.90) m/uL Hgb 9.8 L (13.0-17.5) gm/dL Hct 32.5 L (39.0-53.0) % MCV 100.3 H (80.0-100.0) fL MCHC 30.1 L (31.0-37.0) g/dL Lymphocytes # 0.8 L (1.0-4.8) k/uL Eosinophils # 0.9 H (0-0.7) k/uL <Trinh Lynn N - Last Filed: 03/08/20 23:11> Subjective Patient has history of chronic abdominal pain. Recommend consultation to pain management. Otherwise, will advance diet pending bowel movement. Objective - Vital Signs Vital signs: Vital Signs Temp 97.0 F L 03/08/20 19:10 Pulse 78 03/08/20 19:10 Resp 16 03/08/20 19:10 BP 124/62 03/08/20 19:10 Pulse Ox 97 03/08/20 19:10 Intake & Output 03/08/20 03/08/20 03/09/20 06:59 18:59 06:59 Intake Total 1140 Balance 1140 Intake: Intake, IV Titration 1140 Amount Piperacillin-Tazobactam 3 100 .375 gm In Sodium Chloride 0.9% 100 ml @ 25 mls/hr IVPB Q8HR [facility] Rx# :[id number] Sodium Chloride 0.9% 1, 1040 000 ml @ 130 mls/hr IV . Q7H42M [facility] Rx#:[id number] Other: Voiding Method Toilet Toilet # Voids 1 2 # Bowel Movements 1 - Labs CBC & Chem 7: 03/06/20 06:36 03/06/20 06:36 Assessment and Plan (1) Small bowel obstruction Current Visit: Yes Status: Acute Code(s): K56.69 - OTHER INTESTINAL OBSTRUCTION * DO NOT USE * SNOMED Code(s): 368560851 (2) Abdominal bloating Current Visit: No Status: Acute Code(s): R14.0 - ABDOMINAL DISTENSION (GASEOUS) SNOMED Code(s): 080036766 (3) Chronic abdominal pain Current Visit: No Status: Acute Code(s): R10.9 - UNSPECIFIED ABDOMINAL PAIN; G89.29 - OTHER CHRONIC PAIN SNOMED Code(s): 288433458 (4) Anemia Current Visit: Yes Status: Acute Code(s): D64.9 - ANEMIA, UNSPECIFIED SNO MED Code(s): 335915804 (5) Peritoneal adhesions Current Visit: No Status: Acute Code(s): K66.0 - PERITONEAL ADHESIONS (POSTPROCEDURAL) (POSTINFECTION) SNOMED Code(s): 08687127 (6) Small bowel obstruction due to adhesions Current Visit: No Status: Acute Code(s): K56.50 - INTESTNL ADHESIONS, UNSP TO PARTIAL VERSUS COMPLETE OBST SNOMED Code(s): 948041377
[2020-03-06 11:23] LABS: African American GFR (CKD) 121.4 (60.0-200.0); Anion Gap 6.7 mmol/L (4.00-12.00); Calcium 7.8 mg/dL (8.7-10.3); Carbon Dioxide 23.3 mmol/L (21.6-31.8); Magnesium 2.1 mg/dL (1.5-2.4); Non-African American GFR(CKD) 104.8 (60.0-200.0); Potassium 4.4 mmol/L (3.5-5.5)
[2020-03-06] MEDS: KETOROLAC 15 MG/ML 1 ML VIAL IVP SCH ×3 (11:29→23:17)
[2020-03-06] MEDS: ACETAMINOPHEN IV (For NPO) 1,000 MG in EMPTY BAG 1 BAG IVPB SCH ×3 (12:05→23:16)
[2020-03-06] MEDS: HYDROmorphone PCA 10 MG/50 ML BAG IV PRN (15:32)
[2020-03-07] MEDS: SODIUM CHLORIDE 0.9% 1,000 ML IV SCH ×4 (03:20→21:19)
[2020-03-07] MEDS: ACETAMINOPHEN IV (For NPO) 1,000 MG in EMPTY BAG 1 BAG IVPB SCH (05:02)
[2020-03-07] MEDS: KETOROLAC 15 MG/ML 1 ML VIAL IVP SCH ×3 (05:03→17:04)
[2020-03-07] MEDS: GABAPENTIN 300 MG CAP PO SCH ×3 (09:14→21:18)
[2020-03-07] MEDS: tiZANidine 4 MG TAB PO SCH ×3 (09:14→21:19)
[2020-03-07] MEDS: ENOXAPARIN 30 MG/0.3 ML SYRINGE SQ SCH (09:18)
[2020-03-07] MEDS: PANTOPRAZOLE 40 MG/10 ML VIAL IV SCH (09:50)
[2020-03-07] MEDS: PIPERACILLIN-TAZOBACTAM 3.375 GM in SODIUM CHLORIDE 0.9% 100 ML IVPB SCH ×2 (09:52→17:46)
--- NOTE | 2020-03-07 12:36 | P.CONS ---
History of Present Illness - Reason for Consult Consult date: 03/07/20 - Chief Complaint Abdominal pain - History of Present Illness This is a 64-year-old gentleman + April for status post exploratory laparotomy for bowel obstruction. The patient has acute postoperative pain which has been difficult to be controlled. The patient right now is on PATIENT SERVICES ASSISTANT IV Dilaudid at 0.3 mg every 5 minutes with no basal rate. He also takes Toradol 15 mg every 6 hours. The patient does not have an epidural catheter in his back. The patient has remote history of drug abuse for cocaine and marijuana however he has not used drugs for the last 5 years at least as he states. Past Medical History Past Medical History: Cancer, Deep Vein Thrombosis (DVT), GERD/Reflux, Hyperlipidemia, Pneumonia Additional Past Medical History / Comment(s): SBOs, L lower leg DVT, blood clot behind R eye, basal skin cancer with removals, pneumonia with SIRS, sinus problems, low back pain, L foot plantar fascitis, urine flow issues at times, past hiatal hernia-(sx) History of Any Multi-Drug Resistant Organisms: C-DIFF Year Discovered:: 2009 MDRO Source:: stool Past Surgical History: Adenoidectomy, Bowel Resection, Cholecystectomy, Hernia Repair, Tonsillectomy Additional Past Surgical History / Comment(s): Exploratory lap with lysis of adhesions, small bowel decompression, yamileth fundiplication, EGD, colonoscopies/benign polypectomies, T&A twice, skin cancer removals, Past Anesthesia/Blood Transfusion Reactions: No Reported Reaction Past Psychological History: No Psychological Hx Reported Smoking Status: Never smoker Past Alcohol Use History: None Reported Additional Past Alcohol Use History / Comment(s): Patient is a lifelong nonsmoker. He does have medical marijuana but states he hasn't smoked marijuana in a very long time (over a year). He denies any street drug use. He denies any alcohol use. He is currently living at home with his . 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 He has been in the [place] and is unknown if he has asbestos EXPOSURE. . No recent travel. Past Drug Use History: None Reported - Past Family History Mother Family Medical History: Cancer, Diabetes Mellitus Additional Family Medical History / Comment(s): Emphysema, heart problems, COLON CANCER. Father Additional Family Medical History / Comment(s): COLON CA LIVER CA,MULTIPLE MYELOMA, bone cancer Medications and Allergies Home Medications Medication Instructions Recorded Confirmed Type Docusate [Colace] 100 mg PO BID@0100,1500 01/19/19 02/27/20 History Aspirin EC [Ecotrin Low Dose] 81 mg PO DAILY@1500 09/09/19 02/27/20 History Calcium 1500mg 1 tab PO Q48H 02/16/20 02/27/20 History Vitamin C 4000mg 1 tab PO BID@0100,1500 02/16/20 02/27/20 History Vitamin K-2 1 tab PO DAILY@1500 02/16/20 02/27/20 History Atorvastatin [Lipitor] 20 mg PO DAILY@1500 02/27/20 02/27/20 History Allergies Allergy/AdvReac Type Severity Reaction Status Date / Time morphine Allergy Rash/Hives/Shortness Verified 02/27/20 18:23 of Breath Physical Exam Vitals: Vital Signs Temp Pulse Pulse Resp BP BP Pulse Ox 03/07/20 07:03 97.6 F 61 17 112/71 95 03/07/20 00:51 97.6 F 65 14 108/62 92 L 03/06/20 20:50 94 L 03/06/20 19:28 97.5 F L 58 L 18 85/53 96 03/06/20 14:34 97.9 F 89 18 101/63 94 L Intake and Output 03/06/20 03/07/20 03/07/20 22:59 06:59 14:59 Other: # Voids 1 2 - Constitutional General appearance: morbidly obese (Mild tenderness around the abdominal incision. The patient has abdominal binder on.) - Psychiatric Psychiatric: A&O x's 3, appropriate affect, intact judgment & insight The patient rates his pain at 5 out of 10 today. Results CBC & Chem 7: 03/06/20 06:36 03/06/20 06:36 Assessment and Plan Plan: Increase the Dilaudid IV PATIENT SERVICES ASSISTANT to 0.5 mg every 10 minutes demand dose and basal rate of 0.4 mg an hour. The patient's pain has been improving and I do not think he needs epidural catheter at this point. The patient is to stay on pulse oximeter continuously. I thank you for the consultation
[2020-03-07] MEDS: HYDROmorphone PCA 10 MG/50 ML BAG IV PRN ×2 (12:53→15:57)
--- NOTE | 2020-03-07 15:04 | P.PN ---
<Toña Castro - Last Filed: 03/07/20 15:00> Subjective Progress Note Date: 03/07/20 CHIEF COMPLAINT: Recurrent small bowel obstruction HISTORY OF PRESENT ILLNESS: The patient is a 64-year-old male admitted for recurrent small bowel obstruction. He has history of chronic abdominal pain. He is postoperative day 3 following extensive lysis of adhesions for small bowel obstruction. Patient was seen by pain service pain pump OUTDOOR GUIDE has been adjusted. Patient does report better pain control is afternoon. He is passing gas. No bowel movement. Denies any nausea or vomiting. Currently tolerating a clear liquid diet. He is afebrile. WBC 8.4 PHYSICAL EXAM: VITAL SIGNS: Reviewed GENERAL: Well-developed in no acute distress. HEENT: No sclera icterus. Extraocular movements grossly intact. Moist buccal mucosa. Head is atraumatic, normocephalic. Hears conversational speech. No nasal drainage. NECK: Supple without lymphadenopathy. CHEST: Non-labored respirations and equal bilateral excursions. CARDIOVASCULAR: Palpable 2+ radial pulses. ABDOMEN: Soft. Incision intact. Dressing intact. Prevena vac intact. Has abdominal binder in place MUSCULOSKELETAL: No clubbing or cyanosis. NEUROLOGIC: No focal or lateralizing signs. Cranial nerves II through XII grossly intact. PSYCH: Appropriate affect. Alert and oriented to person, place and time. SKIN: Well perfused. Good skin turgor. ASSESSMENT: 1. Recurrent small bowel obstruction 2. Status post extensive lysis of adhesions 3. Postoperative pain management PLAN: -Continue Entereg -continue clear liquid diet -Continue antibiotics -Appreciate pain service recommendations Physician Site Acquisition Specialist note has been reviewed by physician. Signing provider agrees with the documented findings, assessment, and plan of care. Objective - Vital Signs Vital signs: Vital Signs Temp 97.6 F 03/07/20 07:03 Pulse 61 03/07/20 07:03 Resp 17 03/07/20 07:03 BP 112/71 03/07/20 07:03 Pulse Ox 95 03/07/20 07:03 Intake & Output 03/06/20 03/07/20 03/07/20 18:59 06:59 18:59 Weight 107.955 kg Other: # Voids 1 2 - Labs CBC & Chem 7: 03/06/20 06:36 03/06/20 06:36 <Trinh Lynn - Last Filed: 03/08/20 23:11> Subjective As above. Patient has chronic pain. Pain has improved. Will advance diet pending bowel movement. Objective - Vital Signs Vital signs: Vital Signs Temp 97.0 F L 03/08/20 19:10 Pulse 78 03/08/20 19:10 Resp 16 03/08/20 19:10 BP 124/62 03/08/20 19:10 Pulse Ox 97 03/08/20 19:10 Intake & Output 03/08/20 03/08/20 03/09/20 06:59 18:59 06:59 Intake Total 1140 Balance 1140 Intake: Intake, IV Titration 1140 Amount Piperacillin-Tazobactam 3 100 .375 gm In Sodium Chloride 0.9% 100 ml @ 25 mls/hr IVPB Q8HR [facility] Rx# :[id number] Sodium Chloride 0.9% 1, 1040 000 ml @ 130 mls/hr IV . Q7H42M [facility] Rx#:[id number] Other: Voiding Method Toilet Toilet # Voids 1 2 # Bowel Movements 1 - Labs CBC & Chem 7: 03/06/20 06:36 03/06/20 06:36 Assessment and Plan (1) Small bowel obstruction Current Visit: Yes Status: Acute Code(s): K56.69 - OTHER INTESTINAL OBSTRUCTION * DO NOT USE * SNOMED Code(s): 520624717 (2) Abdominal bloating Current Visit: No Status: Acute Code(s): R14.0 - ABDOMINAL DISTENSION (GASEOUS) SNOMED Code(s): 159959787 (3) Chronic abdominal pain Current Visit: No Status: Acute Code(s): R10.9 - UNSPECIFIED ABDOMINAL PAIN; G89.29 - OTHER CHRONIC PAIN SNOMED Code(s): 461839063 (4) Anemia Current Visit: Yes Status: Acute Code(s): D64.9 - ANEMIA, UNSPECIFIED SNOMED Code(s): 067343173 (5) Peritoneal adhesions Current Visit: No Status: Acute Code(s): K66.0 - PERITONEAL ADHESIONS (POSTPROCEDURAL) (POSTINFECTION) SNOMED Code(s): 39718150 (6) Small bowel obstruction due to adhesions Current Visit: No Status: Acute Code(s): K56.50 - INTESTNL ADHESIONS, UNSP TO PARTIAL VERSUS COMPLETE OBST SNOMED Code(s): 477379272
[2020-03-08] MEDS: PIPERACILLIN-TAZOBACTAM 3.375 GM in SODIUM CHLORIDE 0.9% 100 ML IVPB SCH ×3 (00:03→16:06)
[2020-03-08] MEDS: KETOROLAC 15 MG/ML 1 ML VIAL IVP SCH ×4 (00:03→19:51)
[2020-03-08] MEDS: HYDROmorphone PCA 10 MG/50 ML BAG IV PRN ×2 (03:10→12:28)
[2020-03-08] MEDS: ENOXAPARIN 30 MG/0.3 ML SYRINGE SQ SCH (08:45)
[2020-03-08] MEDS: tiZANidine 4 MG TAB PO SCH ×3 (08:45→21:48)
[2020-03-08] MEDS: GABAPENTIN 300 MG CAP PO SCH ×3 (08:45→21:48)
[2020-03-08] MEDS: PANTOPRAZOLE 40 MG/10 ML VIAL IV SCH (09:08)
[2020-03-08] MEDS: SODIUM CHLORIDE 0.9% 1,000 ML IV SCH ×3 (09:33→20:34)
--- NOTE | 2020-03-08 14:51 | P.PN ---
<Toña Castro - Last Filed: 03/08/20 14:48> Subjective Progress Note Date: 03/08/20 CHIEF COMPLAINT: Recurrent small bowel obstruction HISTORY OF PRESENT ILLNESS: The patient is a 64-year-old male admitted for recurrent small bowel obstruction. He has history of chronic abdominal pain. He is postoperative day 4 following extensive lysis of adhesions for small bowel obstruction. Patient still reporting abdominal pain. Denies any nausea or vomiting. He is passing gas and having bowel movements. Currently tolerating a full liquid diet. He's afebrile. PHYSICAL EXAM: VITAL SIGNS: Reviewed GENERAL: Well-developed in no acute distress. HEENT: No sclera icterus. Extraocular movements grossly intact. Moist buccal mucosa. Head is atraumatic, normocephalic. Hears conversational speech. No nasal drainage. NECK: Supple without lymphadenopathy. CHEST: Non-labored respirations and equal bilateral excursions. CARDIOVASCULAR: Palpable 2+ radial pulses. ABDOMEN: Soft. Incision intact. Dressing intact. Prevena vac intact. Has abdominal binder in place MUSCULOSKELETAL: No clubbing or cyanosis. NEUROLOGIC: No focal or lateralizing signs. Cranial nerves II through XII grossly intact. PSYCH: Appropriate affect. Alert and oriented to person, place and time. SKIN: Well perfused. Good skin turgor. ASSESSMENT: 1. Recurrent small bowel obstruction 2. Status post extensive lysis of adhesions 3. Postoperative pain management PLAN: -Start patient on regular diet -Discontinue SCREW SUPERVISOR pump -Start Percocet 5/325 one every 6 hours as needed for pain and add Dilaudid 1 mg IV every 2 hours as a for pain. Continue the Neurontin and Zanaflex -Continue antibiotics Physician Graduate Recruiter note has been reviewed by physician. Signing provider agrees with the documented findings, assessment, and plan of care. Objective - Vital Signs Vital signs: Vital Signs Temp 98.4 F 03/08/20 09:34 Pulse 70 03/08/20 09:34 Resp 18 03/08/20 09:34 BP 159/93 03/08/20 09:34 Pulse Ox 95 03/08/20 09:34 Intake & Output 03/07/20 03/08/20 03/08/20 18:59 06:59 18:59 Weight 107.955 kg Other: Voiding Method Toilet # Voids 2 1 1 # Bowel Movements 1 - Labs CBC & Chem 7: 03/06/20 06:36 03/06/20 06:36 <Trinh Lynn N - Last Filed: 03/08/20 23:12> Subjective Patient clinically improving. Anticipate disposition within 48 hours pending pain control prior to discharge. Objective - Vital Signs Vital signs: Vital Signs Temp 97.0 F L 03/08/20 19:10 Pulse 78 03/08/20 19:10 Resp 16 03/08/20 19:10 BP 124/62 03/08/20 19:10 Pulse Ox 97 03/08/20 19:10 Intake & Output 03/08/20 03/08/20 03/09/20 06:59 18:59 06:59 Intake Total 1140 Balance 1140 Intake: Intake, IV Titration 1140 Amount Piperacillin-Tazobactam 3 100 .375 gm In Sodium Chloride 0.9% 100 ml @ 25 mls/hr IVPB Q8HR [facility] Rx# :[id number] Sodium Chloride 0.9% 1, 1040 000 ml @ 130 mls/hr IV . Q7H42M [facility] Rx#:[id number] Other: Voiding Method Toilet Toilet # Voids 1 2 # Bowel Movements 1 - Labs CBC & Chem 7: 03/06/20 06:36 03/06/20 06:36 Assessment and Plan (1) Small bowel obstruction Current Visit: Yes Status: Acute Code(s): K56.69 - OTHER INTESTINAL OBSTRUCTION * DO NOT USE * SNOMED Code(s): 831734571 (2) Abdominal bloating Current Visit: No Status: Acute Code(s): R14.0 - ABDOMINAL DISTENSION (GASEOUS) SNOMED Code(s): 478540624 (3) Chronic abdominal pain Current Visit: No Status: Acute Code(s): R10.9 - UNSPECIFIED ABDOMINAL PAIN; G89.29 - OTHER CHRONIC PAIN SNOMED Code(s): 572363683 (4) Anemia Current Visit: Yes Status: Acute Code(s): D64.9 - ANEMIA, UNSPECIFIED SNOMED Code(s): 247239492 (5) Peritoneal adhesions Current Visit: No Status: Acute Code(s): K66.0 - PERITONEAL ADHESIONS (POSTPROCEDURAL) (POSTINFECTION) SNOMED Code(s): 51950024 (6) Small bowel obstruction due to adhesions Current Visit: No Status: Acute Code(s): K56.50 - INTESTNL ADHESIONS, UNSP TO PARTIAL VERSUS COMPLETE OBST SNOMED Code(s): 104876082
[2020-03-08] MEDS: oxyCODONE-APAP 5-325MG 1 EACH TAB PO PRN (17:25)
[2020-03-09] MEDS: KETOROLAC 15 MG/ML 1 ML VIAL IVP SCH ×2 (00:32→06:28)
[2020-03-09] MEDS: PIPERACILLIN-TAZOBACTAM 3.375 GM in SODIUM CHLORIDE 0.9% 100 ML IVPB SCH ×3 (00:32→16:38)
[2020-03-09] MEDS: SODIUM CHLORIDE 0.9% 1,000 ML IV SCH ×2 (06:01→13:00)
[2020-03-09] MEDS: oxyCODONE-APAP 5-325MG 1 EACH TAB PO PRN (09:01)
[2020-03-09] MEDS: ENOXAPARIN 30 MG/0.3 ML SYRINGE SQ SCH (09:02)
[2020-03-09] MEDS: GABAPENTIN 300 MG CAP PO SCH ×3 (09:03→22:25)
[2020-03-09] MEDS: tiZANidine 4 MG TAB PO SCH ×3 (09:03→22:25)
[2020-03-09] MEDS: PANTOPRAZOLE 40 MG TABLET PO SCH (09:03)
--- NOTE | 2020-03-09 13:38 | P.PN ---
<Toña Castro - Last Filed: 03/09/20 13:35> Subjective Progress Note Date: 03/09/20 CHIEF COMPLAINT: Recurrent small bowel obstruction HISTORY OF PRESENT ILLNESS: The patient is a 64-year-old male admitted for recurrent small bowel obstruction. He has history of chronic abdominal pain. He is postoperative day 5 following extensive lysis of adhesions for small bowel obstruction. Patient still reporting abdominal pain. Denies any nausea or vomiting. He is passing gas. He did have a bowel movement yesterday. He is afebrile. PHYSICAL EXAM: VITAL SIGNS: Reviewed GENERAL: Well-developed in no acute distress. HEENT: No sclera icterus. Extraocular movements grossly intact. Moist buccal mucosa. Head is atraumatic, normocephalic. Hears conversational speech. No nasal drainage. NECK: Supple without lymphadenopathy. CHEST: Non-labored respirations and equal bilateral excursions. CARDIOVASCULAR: Palpable 2+ radial pulses. ABDOMEN: Soft. Incision intact. Dressing intact. Prevena vac intact. Has abd ominal binder in place MUSCULOSKELETAL: No clubbing or cyanosis. NEUROLOGIC: No focal or lateralizing signs. Cranial nerves II through XII grossly intact. PSYCH: Appropriate affect. Alert and oriented to person, place and time. SKIN: Well perfused. Good skin turgor. ASSESSMENT: 1. Recurrent small bowel obstruction 2. Status post extensive lysis of adhesions 3. Postoperative pain management PLAN: -Continue regular diet -Continue Percocet 5/325 one every 6 hours as needed for pain and add Dilaudid 1 mg IV every 2 hours as a for pain. Continue the Neurontin and Zanaflex -Continue antibiotics -Encouraged patient to increase activity Physician Wet Sander note has been reviewed by physician. Signing provider agrees with the documented findings, assessment, and plan of care. Objective - Vital Signs Vital signs: Vital Signs Temp 98.5 F 03/09/20 11:26 Pulse 68 03/09/20 11:26 Resp 18 03/09/20 11:26 BP 135/76 03/09/20 11:26 Pulse Ox 95 03/09/20 11:26 Intake & Output 03/08/20 03/09/20 03/09/20 18:59 06:59 18:59 Intake Total 1140 100 490 Balance 1140 100 490 Intake: Intake, IV Titration 1140 100 490 Amount Piperacillin-Tazobactam 3 100 100 100 .375 gm In Sodium Chloride 0.9% 100 ml @ 25 mls/hr IVPB Q8HR [facility] Rx# :[id number] Sodium Chloride 0.9% 1, 1040 390 000 ml @ 130 mls/hr IV . Q7H42M [facility] Rx#:[id number] Other: Voiding Method Toilet Toilet # Voids 2 1 2 - Labs CBC & Chem 7: 03/06/20 06:36 03/06/20 06:36 <Trinh Lynn - Last Filed: 03/09/20 19:09> Objective - Vital Signs Vital signs: Vital Signs Temp 98.5 F 03/09/20 11:26 Pulse 68 03/09/20 11:26 Resp 18 03/09/20 11:26 BP 135/76 03/09/20 11:26 Pulse Ox 95 03/09/20 11:26 Intake & Output 03/09/20 03/09/20 03/10/20 06:59 18:59 06:59 Intake Total 100 490 Balance 100 490 Intake: Intake, IV Titration 100 490 Amount Piperacillin-Tazobactam 3 100 100 .375 gm In Sodium Chloride 0.9% 100 ml @ 25 mls/hr IVPB Q8HR [facility] Rx# :[id number] Sodium Chloride 0.9% 1, 390 000 ml @ 130 mls/hr IV . Q7H42M [facility] Rx#:[id number] Other: Voiding Method Toilet # Voids 1 2 - Labs CBC & Chem 7: 03/06/20 06:36 03/06/20 06:36 Assessment and Plan (1) Small bowel obstruction Current Visit: Yes Status: Acute Code(s): K56.69 - OTHER INTESTINAL OBSTRUCTION * DO NOT USE * SNOMED Code(s): 019202449 (2) Abdominal bloating Current Visit: No Status: Acute Code(s): R14.0 - ABDOMINAL DISTENSION (GASEOUS) SNOMED Code(s): 730715100 (3) Chronic abdominal pain Current Visit: No Status: Acute Code(s): R10.9 - UNSPECIFIED ABDOMINAL PAIN; G89.29 - OTHER CHRONIC PAIN SNOMED Code(s): 928947783 (4) Anemia Current Visit: Yes Status: Acute Code(s): D64.9 - ANEMIA, UNSPECIFIED SNOMED Code(s): 901518565 (5) Peritoneal adhesions Current Visit: No Status: Acute Code(s): K66.0 - PERITONEAL ADHESIONS (POSTPROCEDURAL) (POSTINFECTION) SNOMED Code(s): 33110010 (6) Small bowel obstruction due to adhesions Current Visit: No Status: Acute Code(s): K56.50 - INTESTNL ADHESIONS, UNSP TO PARTIAL VERSUS COMPLETE OBST SNOMED Code(s): 206557419
[2020-03-09] MEDS ORDERED: LACTULOSE 20 GM/30 ML CUP PO ONE (19:14)
[2020-03-09] MEDS ORDERED: MAGNESIUM HYDROXIDE 2,400 MG/10 ML CUP PO STA (19:14)
[2020-03-10] MEDS: PIPERACILLIN-TAZOBACTAM 3.375 GM in SODIUM CHLORIDE 0.9% 100 ML IVPB SCH ×2 (00:33→10:00)
[2020-03-10] MEDS: HYDROmorphone 1 MG/ML 1 ML SYRINGE IVP PRN ×2 (00:46→04:56)
[2020-03-10] MEDS: SODIUM CHLORIDE 0.9% 1,000 ML IV SCH ×3 (01:55→11:36)
[2020-03-10] MEDS: oxyCODONE-APAP 5-325MG 1 EACH TAB PO PRN (03:35)
[2020-03-10 04:42] LABS: Basophils # (A) 0.1 k/uL (0-0.2); Basophils % (A) 1 %; Eosinophils # (A) 0.9 k/uL (0-0.7); Eosinophils % (A) 13 %; Hypochromasia Marked; Lymphocytes # (A) 1.8 k/uL (1.0-4.8); Lymphocytes % (A) 26 %; MCH 30.9 pg (25.0-35.0); MCHC 31.4 g/dL (31.0-37.0); MCV 98.5 fL (80.0-100.0); Mean Platelet Volume 7.4; Monocytes # (A) 0.5 k/uL (0-1.0); Monocytes % (A) 7 %; Neutrophils # (A) 3.5 k/uL (1.3-7.7); Neutrophils % (A) 50 %; Platelet Count 465 k/uL (150-450); Poikilocytosis Slight; RBC 3.25 m/uL (4.30-5.90); RDW 14.4 % (11.5-15.5)
[2020-03-10 06:11] VITALS: BP 117/74; PULSE 66; RESP 14; TEMP 97.6
[2020-03-10] MEDS: GABAPENTIN 300 MG CAP PO SCH (08:41)
[2020-03-10] MEDS: PANTOPRAZOLE 40 MG TABLET PO SCH (08:41)
[2020-03-10] MEDS: tiZANidine 4 MG TAB PO SCH (08:41)
[2020-03-10] MEDS: ENOXAPARIN 30 MG/0.3 ML SYRINGE SQ SCH (08:41)
[2020-03-10 10:06] LABS: Anion Gap 8.7 mmol/L (4.00-12.00); BUN/Creat Ratio 7.14 Ratio (12.00-20.00); Calcium 8.7 mg/dL (8.7-10.3); Carbon Dioxide 27.3 mmol/L (21.6-31.8); Non-African American GFR(CKD) 98.3 (60.0-200.0); Potassium 3.8 mmol/L (3.5-5.5)
[2020-03-10] MEDS ORDERED: SODIUM FERRIC GLUCONAT-SUCROSE 125 MG in SODIUM CHLORIDE 0.9% 100 ML IVPB ONE (10:30)
--- NOTE | 2020-03-10 12:49 | P.DS ---
Providers Date of admission: 02/27/20 18:08 Expected date of discharge: 03/10/20 Attending physician: Trinh Lynn Primary care physician: Lurdes Swanson Hospital Course: Discharge diagnosis 1. Recurrent small bowel obstruction 2. Status post extensive lysis of adhesions 3. Postoperative pain management Hospital course The patient is a 64-year-old male recently discharged for acute diverticular bleed who then developed acute small bowel obstruction during his last hospitalization. He was treated at that time with conservative management with nasogastric tube decompression including nothing by mouth status. Prior to dis charge, he was passing flatus and tolerating liquid diet. Patient had gone home and ate [place]. After eating such food, he developed recurrent abdominal gas bloat and pain. His history is significant for multiple bowel obstructions including diverticulitis as well as previous exploratory laparotomy. He returns back to the emergency room for recurrent small bowel obstruction. Patient had NG tube placed for decompression. Patient did require exploratory laparotomy with extensive lysis of adhesions and application of provena wound VAC. Patient is tolerating diet. His pain is controlled. He is having bowel movements. He is afebrile. He is up and ambulating. Patient is stable for discharge home. Please refer to chart for any further details. Physician Fire Management Technician note has been reviewed by physician. Signing provider agrees with the documented findings, assessment, and plan of care. Patient Condition at Discharge: Stable Plan - Discharge Summary Discharge Rx Participant: No New Discharge Prescriptions: New Gabapentin [Neurontin] 300 mg PO TID PRN #9 cap PRN Reason: Pain oxyCODONE-APAP 5-325MG [Percocet 5-325 mg] 1 each PO Q6HR PRN #12 tab PRN Reason: Pain tiZANidine [Zanaflex] 4 mg PO TID PRN #9 tab PRN Reason: Muscle Spasm Continue Docusate [Colace] 100 mg PO BID@0100,1500 Discontinued Aspirin EC [Ecotrin Low Dose] 81 mg PO DAILY@1500 Vitamin K-2 1 tab PO DAILY@1500 Calcium 1500mg 1 tab PO Q48H Vitamin C 4000mg 1 tab PO BID@0100,1500 Atorvastatin [Lipitor] 20 mg PO DAILY@1500 Discharge Medication List Docusate [Colace] 100 mg PO BID@0100,1500 01/19/19 [History] Gabapentin [Neurontin] 300 mg PO TID PRN #9 cap 03/10/20 [Rx] oxyCODONE-APAP 5-325MG [Percocet 5-325 mg] 1 each PO Q6HR PRN #12 tab 03/10/20 [Rx] tiZANidine [Zanaflex] 4 mg PO TID PRN #9 tab 03/10/20 [Rx] Follow up Appointment(s)/Referral(s): Lurdes Swanson MD [Primary Care Provider] - 1-2 days [facility], [NON-STAFF] - 1-2 Days rTinh Lynn MD [STAFF PHYSICIAN] - 03/14/20 Activity/Diet/Wound Care/Special Instructions: No driving while taking narcotics Wear abdominal binder at all times for comfort. No lifting over 4 pounds in 4 weeks until Mar 29. September shower. No bath tub soaks for two weeks until Mar 15 Diet regular Discharge Disposition: HOME SELF-CARE
== END 2020-03-10 16:25 | disposition home health service (06) | DRG 335 ==
LOC: EC 17:42 → 4SSUR 18:08 → 5NMEDONC 03-08 16:40
PROVIDERS: ADMIT Surgery Plastic and Reconstructive Surgery; ATTEND Surgery Plastic and Reconstructive Surgery
PROC: 0D9670Z Drainage of Stomach with Drainage Device, Via Natural or Artificial Opening (ICD-10-PCS; 2020-02-27)
PROC: 0DN90ZZ Release Duodenum, Open Approach (ICD-10-PCS; principal; 2020-03-03 15:25)
PROC: 0DNL0ZZ Release Transverse Colon, Open Approach (ICD-10-PCS; principal; 2020-03-03 15:25)
PROC: 0WQF0ZZ Repair Abdominal Wall, Open Approach (ICD-10-PCS; principal; 2020-03-03 15:25)
PROC: 0DNB0ZZ Release Ileum, Open Approach (ICD-10-PCS; principal; 2020-03-03 15:25)
PROC: 0DNA0ZZ Release Jejunum, Open Approach (ICD-10-PCS; principal; 2020-03-03 15:25)
PROC: 0DNU0ZZ Release Omentum, Open Approach (ICD-10-PCS; principal; 2020-03-03 15:25)
DX: K56.50 Intestinal adhesions [bands], unspecified as to partial versus complete obstruction (principal); K57.31 Diverticulosis of large intestine without perforation or abscess with bleeding; F14.11 Cocaine abuse, in remission; E78.5 Hyperlipidemia, unspecified; K43.2 Incisional hernia without obstruction or gangrene; K21.9 Gastro-esophageal reflux disease without esophagitis; D64.9 Anemia, unspecified; M72.2 Plantar fascial fibromatosis; G89.29 Other chronic pain; M54.5 Low back pain; R10.9 Unspecified abdominal pain; F12.11 Cannabis abuse, in remission; E66.09 Other obesity due to excess calories; Z68.32 Body mass index [BMI] 32.0-32.9, adult; Z79.82 Long term (current) use of aspirin; Z79.899 Other long term (current) drug therapy; Z86.718 Personal history of other venous thrombosis and embolism; Z85.828 Personal history of other malignant neoplasm of skin; Z87.01 Personal history of pneumonia (recurrent); Z86.19 Personal history of other infectious and parasitic diseases; Z90.89 Acquired absence of other organs; Z90.49 Acquired absence of other specified parts of digestive tract; Z87.19 Personal history of other diseases of the digestive system; Z98.890 Other specified postprocedural states; Z71.3 Dietary counseling and surveillance; Z88.5 Allergy status to narcotic agent; Z83.3 Family history of diabetes mellitus; Z82.5 Family history of asthma and other chronic lower respiratory diseases; Z80.0 Family history of malignant neoplasm of digestive organs; Z80.7 Family history of other malignant neoplasms of lymphoid, hematopoietic and related tissues; Z82.49 Family history of ischemic heart disease and other diseases of the circulatory system; Z80.8 Family history of malignant neoplasm of other organs or systems
CPT/HCPCS: 74018; 74019; 80048; 80053; 81003; 82150; 83605; 83690; 83735; 84100; 85025; 85610; 85730; 88305; 94760; 94762; 99285

== ENCOUNTER 2020-05-14 18:31 | Emergency (ER) | payer OTHER, MEDICARE ==
[2020-05-14 18:39] VITALS: BP 115/70; PULSE 77; TEMP 98.1
[2020-05-14 18:51] VITALS: RESP 16
--- NOTE | 2020-05-14 19:25 | XR ---
EXAMINATION TYPE: XR chest 2V DATE OF EXAM: 05/14/2020 COMPARISON: 02/24/2020 HISTORY: Cough Heart is normal. Lungs are clear of infiltrate. There is no heart failure. There are no hilar masses . Bony thorax is intact. IMPRESSION: No active cardiopulmonary disease. Normal heart. No change.
--- NOTE | 2020-05-14 19:27 | ED ---
URI HPI - General Chief Complaint: Upper Respiratory Infection Stated Complaint: congestion Time Seen by Provider: 05/14/20 18:40 Source: patient Mode of arrival: ambulatory Limitations: no limitations - History of Present Illness Initial Comments: 65yo male presenting for cc of nasal congestion and couhg. pt stats for the past few days he has had nasal congestion and cough. Patient states that he has similar symptoms. He denies any fevers chest pain shortness of breath pain with deep inspiration leg swelling nausea vomiting diarrhea. Patient appears very well nontoxic in no acute distress. - Related Data Home Medications Medication Instructions Recorded Confirmed Docusate [Colace] 100 mg PO BID@0100,1500 01/19/19 02/27/20 Previous Rx's Medication Instructions Recorded Gabapentin [Neurontin] 300 mg PO TID PRN #9 cap 03/10/20 oxyCODONE-APAP 5-325MG [Percocet 1 each PO Q6HR PRN #12 tab 03/10/20 5-325 mg] tiZANidine [Zanaflex] 4 mg PO TID PRN #9 tab 03/10/20 predniSONE 50 mg PO DAILY 4 Days #4 tab 05/14/20 Allergies Allergy/AdvReac Type Severity Reaction Status Date / Time morphine Allergy Rash/Hives/Shortness Verified 05/14/20 18:39 of Breath Review of Systems ROS Statement: Those systems with pertinent positive or pertinent negative responses have been documented in the HPI. ROS Other: All systems not noted in ROS Statement are negative. Past Medical History Past Medical History: Cancer, Deep Vein Thrombosis (DVT), GERD/Reflux, Hyperlipidemia, Pneumonia Additional Past Medical History / Comment(s): SBOs, L lower leg DVT, blood clot behind R eye, basal skin cancer with removals, pneumonia with SIRS, sinus problems, low back pain, L foot plantar fascitis, urine flow issues at times, past hiatal hernia-(sx) History of Any Multi-Drug Resistant Organisms: C-DIFF Date of last positivie culture/infection: 2009 MDRO Source:: stool Past Surgical History: Adenoidectomy, Bowel Resection, Cholecystectomy, Hernia Repair, Tonsillectomy Additional Past Surgical History / Comment(s): Exploratory lap with lysis of adhesions, small bowel decompression, yamileth fundiplication, EGD, colonoscopies/benign polypectomies, T&A twice, skin cancer removals, Past Anesthesia/Blood Transfusion Reactions: No Reported Reaction Past Psychological History: No Psychological Hx Reported Smoking Status: Never smoker Past Alcohol Use History: None Reported Past Drug Use History: None Reported - Past Family History Mother Family Medical History: Cancer, Diabetes Mellitus Additional Family Medical History / Comment(s): Emphysema, heart problems, COLON CANCER. Father Additional Family Medical History / Comment(s): COLON CA LIVER CA,MULTIPLE MYELOMA, bone cancer General Exam - General Exam Comments Initial Comments: General: The patient is awake and alert, in no distress Eye: +3 mm pupils are equal, round and reactive to light, extra-ocular movements are intact. No nystagmus. There is normal conjunctiva bilaterally. No signs of icterus. Ears, nose, mouth and throat: There are moist mucous membranes and no oral lesions. Neck: The neck is supple, there is no tenderness or JVD. Cardiovascular: There is a regular rate and rhythm. No murmur, rub or gallop is appreciated. Respiratory: Lungs are clear to auscultation, respirations are non-labored, breath sounds are equal. No wheezes, stridor, rales, or rhonchi. Gastrointestinal: Soft, non-distended, non-tender abdomen without masses or organomegaly noted. There is no rebound or guarding present. Musculoskeletal: Normal ROM, no tenderness. Strength 5/5. Sensation intact. Radial pulses equal bilaterally 2+. Neurological: A&O x 3. CN II-XII intact grossly, There are no obvious motor or sensory deficits. Coordination appears grossly intact. Speech is normal. Skin: Skin is warm and dry and no rashes or lesions are noted. Psychiatric: Cooperative, appropriate mood & affect, normal judgment. Limitations: no limitations Course Vital Signs 05/14/20 05/14/20 18:36 18:49 Temperature 98.1 F Pulse Rate 77 Respiratory 18 16 Rate Blood Pressure 115/70 O2 Sat by Pulse 98 Oximetry Medical Decision Making - Medical Decision Making 65yo male presnting for cough, nasal congestion. states for the past few days he has had nasal congestion and dry cough. denies chest pain or dyspnea. denies leg swelling or pain with deep inspiration. CXR no infiltrates. no hypoxia. lungs clear.patient appears very well. pt adrian be discharged return parameters and primary follow-up - Lab Data Lab Results 05/14/20 Range/Units 18:58 Coronavirus (PCR) Detected A (Not Detectd) Disposition Clinical Impression: Congestion of nasal sinus, Cough Disposition: HOME SELF-CARE Condition: Good Instructions (If sedation given, give patient instructions): Upper Respiratory Infection (ED) Additional Instructions: Please use medication as discussed. Please follow-up with family doctor in the next 2 days, no work for 7-10days and until fever free x 48 hours. Please return to emergency room if the symptoms increase or worsen or for any other concerns. Prescriptions: predniSONE 50 mg PO DAILY 4 Days #4 tab Is patient prescribed a controlled substance at d/c from ED?: No Referrals: Lurdes Swanson MD [Primary Care Provider] - 1-2 days Time of Disposition: 19:27
== END 2020-05-14 20:06 | disposition home or self-care (01) ==
LOC: EC 18:31
DX: U07.1 COVID-19 (principal); Z88.5 Allergy status to narcotic agent; Z90.49 Acquired absence of other specified parts of digestive tract; Z85.828 Personal history of other malignant neoplasm of skin; Z80.0 Family history of malignant neoplasm of digestive organs; Z80.8 Family history of malignant neoplasm of other organs or systems; Z80.7 Family history of other malignant neoplasms of lymphoid, hematopoietic and related tissues
CPT/HCPCS: 71046; 87635; 99283

== ENCOUNTER 2020-07-07 02:49 | Emergency (ER) | payer OTHER, MEDICARE ==
[2020-07-07 02:54] VITALS: TEMP 98.1
[2020-07-07] MEDS ORDERED: SODIUM CHLORIDE 0.9% 1,000 ML IV ONE (03:13)
--- NOTE | 2020-07-07 03:33 | ED ---
ENT HPI - General Chief complaint: ENT Stated complaint: Trouble Swallowing Time Seen by Provider: 07/07/20 03:06 Source: patient Mode of arrival: ambulatory Limitations: no limitations - History of Present Illness Initial comments: This patient is a 65-year-old man who presents with complaint that he is having difficulty swallowing. He states that he works midnight and as result had gotten up in the afternoon on Friday. He attempted to eat some oatmeal and was having a difficult time swallowing it. He indicates that it felt like something was lodged in the substernal area. He was regurgitating liquids. He states that that cleared and he has been able take a little bit of liquid but he has not been able to swallow any solids. Patient is denying pain other than when he attempts to swallow something. No dyspnea. He is able to handle his own secretions. MD complaint: difficulty swallowing Onset/Timin -: days(s) - Related Data Home Medications Medication Instructions Recorded Confirmed Docusate [Colace] 100 mg PO BID@0100,1500 01/19/19 02/27/20 Previous Rx's Medication Instructions Recorded Gabapentin [Neurontin] 300 mg PO TID PRN #9 cap 03/10/20 oxyCODONE-APAP 5-325MG [Percocet 1 each PO Q6HR PRN #12 tab 03/10/20 5-325 mg] tiZANidine [Zanaflex] 4 mg PO TID PRN #9 tab 03/10/20 predniSONE 50 mg PO DAILY 4 Days #4 tab 05/14/20 Allergies Allergy/AdvReac Type Severity Reaction Status Date / Time morphine Allergy Rash/Hives/Shortness Verified 07/07/20 02:54 of Breath Review of Systems ROS Statement: Those systems with pertinent positive or pertinent negative responses have been documented in the HPI. ROS Other: All systems not noted in ROS Statement are negative. Constitutional: Denies: fever, chills, weakness Eyes: Denies: vision change ENT: Denies: throat pain, congestion Respiratory: Denies: cough, dyspnea, wheezes, hemoptysis Cardiovascular: Denies: chest pain, palpitations, orthopnea Gastrointestinal: Denies: abdominal pain, nausea, vomiting, diarrhea Genitourinary: Denies: dysuria, hematuria Musculoskeletal: Denies: back pain Skin: Denies: rash Neurological: Denies: headache, weakness, numbness Past Medical History Past Medical History: Cancer, Deep Vein Thrombosis (DVT), GERD/Reflux, Hyperlipidemia, Pneumonia Additional Past Medical History / Comment(s): SBOs, L lower leg DVT, blood clot behind R eye, basal skin cancer with removals, pneumonia with SIRS, sinus problems, low back pain, L foot plantar fascitis, urine flow issues at times, past hiatal hernia-(sx) History of Any Multi-Drug Resistant Organisms: C-DIFF Date of last positivie culture/infection: 2009 MDRO Source:: stool Past Surgical History: Adenoidectomy, Bowel Resection, Cholecystectomy, Hernia Repair, Tonsillectomy Additional Past Surgical History / Comment(s): Exploratory lap with lysis of adhesions, small bowel decompression, yamileth fundiplication, EGD, colonoscopies/benign polypectomies, T&A twice, skin cancer removals, Past Anesthesia/Blood Transfusion Reactions: No Reported Reaction Past Psychological History: No Psychological Hx Reported Smoking Status: Never smoker Past Alcohol Use History: None Reported Past Drug Use History: None Reported - Past Family History Mother Family Medical History: Cancer, Diabetes Mellitus Additional Family Medical History / Comment(s): Emphysema, heart problems, COLON CANCER. Father Additional Family Medical History / Comment(s): COLON CA LIVER CA,MULTIPLE MYELOMA, bone cancer General Exam Limitations: no limitations General appearance: alert, in no apparent distress Head exam: Present: atraumatic, normocephalic Eye exam: Present: normal appearance. Absent: scleral icterus, conjunctival injection ENT exam: Present: normal oropharynx Neck exam: Present: normal inspection, full ROM Respiratory exam: Present: normal lung sounds bilaterally. Absent: respiratory distress, wheezes, rales, rhonchi, stridor Cardiovascular Exam: Present: regular rate, normal rhythm, normal heart sounds. Absent: systolic murmur, diastolic murmur, rubs, gallop GI/Abdominal exam: Present: soft. Absent: distended, tenderness, guarding, rebound, rigid, mass Extremities exam: Present: normal inspection, normal capillary refill. Absent: pedal edema, calf tenderness Back exam: Present: normal inspection. Absent: CVA tenderness (R), CVA tenderness (L) Neurological exam: Present: alert Skin exam: Present: warm, dry, intact, normal color. Absent: rash Course Vital Signs 07/07/20 07/07/20 02:49 05:54 Temperature 98.1 F Pulse Rate 68 73 Respiratory 20 16 Rate Blood Pressure 125/77 126/85 O2 Sat by Pulse 97 97 Oximetry Medical Decision Making - Medical Decision Making Patient is 65-year-old man who presents with complaint of difficulty swallowing. He is able to move things pass the pharynx, but they seem to lie in the substernal area. He was tolerating fluids and own secretions. Will have patient follow-up for barium swallow and for gastroenterology consultation for possible endoscopy. Discussed appropriate further care and follow-up as well as return parameters. - Lab Data Result diagrams: 07/07/20 03:45 07/07/20 03:45 Lab Results 07/07/20 07/07/20 07/07/20 Range/Units 03:45 03:45 03:45 WBC 7.2 (3.8-10.6) k/uL RBC 5.31 (4.30-5.90) m/uL Hgb 16.4 (13.0-17.5) gm/dL Hct 47.7 (39.0-53.0) % MCV 89.8 (80.0-100.0) fL MCH 30.8 (25.0-35.0) pg MCHC 34.4 (31.0-37.0) g/dL RDW 15.1 (11.5-15.5) % Plt Count 236 (150-450) k/uL MPV 7.6 Neutrophils % 60 % Lymphocytes % 23 % Monocytes % 8 % Eosinophils % 4 % Basophils % 1 % Neutrophils # 4.3 (1.3-7.7) k/uL Lymphocytes # 1.7 (1.0-4.8) k/uL Monocytes # 0.6 (0-1.0) k/uL Eosinophils # 0.3 (0-0.7) k/uL Basophils # 0.1 (0-0.2) k/uL Sodium 136 L (137-145) mmol/L Potassium 4.3 (3.5-5.1) mmol/L Chloride 100 (98-107) mmol/L Carbon Dioxide 26 (22-30) mmol/L Anion Gap 10 mmol/L BUN 17 (9-20) mg/dL Creatinine 0.78 (0.66-1.25) mg/dL Est GFR (CKD-EPI)AfAm >90 (>60 ml/min/1.73 sqM) Est GFR (CKD-EPI)NonAf >90 (>60 ml/min/1.73 sqM) Glucose 116 H (74-99) mg/dL Calcium 10.1 (8.4-10.2) mg/dL Total Bilirubin 0.7 (0.2-1.3) mg/dL AST 33 (17-59) U/L ALT 35 (4-49) U/L Alkaline Phosphatase 67 (38-126) U/L Troponin I <0.012 (0.000-0.034) ng/mL Total Protein 7.8 (6.3-8.2) g/dL Albumin 4.6 (3.5-5.0) g/dL - EKG Data -: EKG Interpreted by Oh EKG shows normal: sinus rhythm, axis (Left axis deviation), intervals (Normal), QRS complexes (Possible old anterior infarct), ST-T waves Rate: normal (Rate 66bpm) Disposition Clinical Impression: Dysphagia Disposition: HOME SELF-CARE Condition: Fair Instructions (If sedation given, give patient instructions): Dysphagia (ED) Additional Instructions: As we discussed, follow-up with radiology to have the barium swallow performed. Is patient prescribed a controlled substance at d/c from ED?: No Referrals: Lurdes Swanson MD [Primary Care Provider] - 1-2 days Lily Quiroga MD [STAFF PHYSICIAN] - 1-2 days
--- NOTE | 2020-07-07 03:38 | XR ---
EXAM: XR Chest, 2 Views CLINICAL HISTORY: ITS.REASON XR Reason: chest discomfort TECHNIQUE: Frontal and lateral views of the chest. COMPARISON: 05/14/2020 FINDINGS: Lungs: No consolidation or mass. Pleural space: No effusion. Heart: No cardiomegaly. Bones/joints: No acute findings. Bridging anterior osteophytes suggestive of DISH. IMPRESSION: No acute cardiopulmonary process.
[2020-07-07 04:17] LABS: ALT 35 U/L (4-49); AST 33 U/L (17-59); African American GFR (CKD) >90 (>60 ml/min/1.73 sqM); Albumin 4.6 g/dL (3.5-5.0); Alkaline Phosphatase 67 U/L (38-126); Anion Gap 10 mmol/L; Blood Urea Nitrogen 17 mg/dL (9-20); Calcium 10.1 mg/dL (8.4-10.2); Carbon Dioxide 26 mmol/L (22-30); Chloride 100 mmol/L (98-107); Glucose 116 mg/dL (74-99); Non-African American GFR(CKD) >90 (>60 ml/min/1.73 sqM); Potassium 4.3 mmol/L (3.5-5.1); Sodium 136 mmol/L (137-145); Total Bilirubin 0.7 mg/dL (0.2-1.3); Total Protein 7.8 g/dL (6.3-8.2)
[2020-07-07 05:27] LABS: Basophils # (A) 0.1 k/uL (0-0.2); Basophils % (A) 1 %; Eosinophils # (A) 0.3 k/uL (0-0.7); Eosinophils % (A) 4 %; HCT 47.7 % (39.0-53.0); HGB 16.4 gm/dL (13.0-17.5); Lymphocytes # (A) 1.7 k/uL (1.0-4.8); Lymphocytes % (A) 23 %; MCH 30.8 pg (25.0-35.0); MCHC 34.4 g/dL (31.0-37.0); MCV 89.8 fL (80.0-100.0); Mean Platelet Volume 7.6; Monocytes # (A) 0.6 k/uL (0-1.0); Monocytes % (A) 8 %; Neutrophils # (A) 4.3 k/uL (1.3-7.7); Neutrophils % (A) 60 %; Platelet Count 236 k/uL (150-450); RBC 5.31 m/uL (4.30-5.90); RDW 15.1 % (11.5-15.5); WBC 7.2 k/uL (3.8-10.6)
[2020-07-07 06:00] VITALS: BP 126/85; PULSE 73; RESP 16
== END 2020-07-07 06:02 | disposition home or self-care (01) ==
LOC: EC 02:49
DX: R13.10 Dysphagia, unspecified (principal); E78.5 Hyperlipidemia, unspecified; Z85.828 Personal history of other malignant neoplasm of skin; Z86.718 Personal history of other venous thrombosis and embolism; Z90.49 Acquired absence of other specified parts of digestive tract; Z90.09 Acquired absence of other part of head and neck
CPT/HCPCS: 36415; 71046; 80053; 84484; 85025; 93005; 99284

== ENCOUNTER → 2020-07-14 | Outpatient (CLI) | payer OTHER, MEDICARE ==
--- NOTE | 2020-07-14 11:16 | FL ---
EXAMINATION TYPE: FL barium swallow DATE OF EXAM: 07/14/2020 CLINICAL INDICATION: 65-year-old male R13.10, dysphagia. Patient with urinary visit on 07/07/2020 for i nability to swallow. Patient with Amanda fundoplication in 2012. COMPARISON: None Total Fluoroscopy Time: 3 minutes 34 seconds Total images: 59. FINDINGS: The swallowing mechanism is normal. There is mild hypertrophy of the cricopharyngeus but otherwise hy popharyngeal anatomy is preserved. There is mild dilatation of the thoracic esophagus with progressive pooling of contrast noted. Some i nternal mottled debris is also seen that could represent some retained ingested material. Recurrent e pisodes of intraesophageal reflux are present. As the patient ingested more contrast, passage is seen across the narrowed GE junction. On a few of the images, difficult to exclude a recurrent tiny hiata l hernia. Amanda wrap is located below the diaphragm. Allowing for single contrast assessment, no discrete filling defect or mucosal lesion is identified. IMPRESSION: 1. Status post Amanda fundoplication. On some of the images, unable to exclude a tiny recurrent hiata l hernia above the Amanda wrap. 2. In addition, the esophagus is slightly dilated with some mottled debris within suggesting retained ingested material. There is also a moderate relative obstruction/stricture at the GE junction. Consi kamaljit direct visualization.
== END | disposition home or self-care (01) ==
LOC: RADUSWWP 08:48
PROVIDERS: ATTEND Emergency Medicine
DX: K22.8 Other specified diseases of esophagus (principal); K44.9 Diaphragmatic hernia without obstruction or gangrene; K22.2 Esophageal obstruction; Z98.890 Other specified postprocedural states
CPT/HCPCS: 74220

== ENCOUNTER 2020-08-02 08:57 | Day surgery (SDC) | payer MEDICARE, OTHER ==
[2020-08-01 10:04] VITALS: BMI 33.7
--- NOTE | 2020-08-02 07:45 | P.GSHP ---
History of Present Illness H&P Date: 08/02/20 CHIEF COMPLAINT: GERD HISTORY OF PRESENT ILLNESS: The patient is a 65-year-old male who presents reports gastroesophageal reflux disease. Upper endoscopy was offered for further evaluation and management. PAST MEDICAL HISTORY: Please see list. PAST SURGICAL HISTORY: Please see list. MEDICATIONS: Please see list. ALLERGIES: Please see list. SOCIAL HISTORY: No illicit drug use FAMILY HISTORY: No reports of Crohn disease or ulcerative colitis. REVIEW OF ORGAN SYSTEMS: CONSTITUTIONAL: No reports of fevers or chills. GI: Denies any blood in stools or constipation. PHYSICAL EXAM: VITAL SIGNS: Stable GENERAL: Well-developed and pleasant in no acute distress. HEENT: No scleral icterus. Extraocular movements grossly intact. Moist buccal mucosa. NECK: Supple without lymphadenopathy. CHEST: Unlabored respirations. Equal bilateral excursions. CARDIOVASCULAR: Regular rate and rhythm. Distal 2+ pulses. ABDOMEN: Soft, nondistended. MUSCULOSKELETAL: No clubbing, cyanosis, or edema. ASSESSMENT: 1. Gastroesophageal reflux disease PLAN: 1. Recommend proceeding with an upper endoscopy Past Medical History Past Medical History: Cancer, Chest Pain / Angina, Deep Vein Thrombosis (DVT), GERD/Reflux, Hyperlipidemia, Pneumonia Additional Past Medical History / Comment(s): L lower leg DVT, blood clot behind R eye, basal skin cancer, pneumonia with SIRS, L foot plantar fascitis, urine flow issues at times, past hiatal hernia, diff swallowing starting July 2020, gas issues and constipation, History of Any Multi-Drug Resistant Organisms: C-DIFF Date of last positivie culture/infection: 2009 MDRO Source:: stool Past Surgical History: Adenoidectomy, Bowel Resection, Cholecystectomy, Hernia Repair, Tonsillectomy Additional Past Surgical History / Comment(s): Exploratory lap with lysis of adhesions, surgery to repair hernia and removal of scar tissue and bowel obtruction 02/21, yamileth fundiplication, EGD, colonoscopies, T&A twice, skin cancer removals, Past Anesthesia/Blood Transfusion Reactions: No Reported Reaction Smoking Status: Never smoker - Past Family History Brother(s) Family Medical History: Cancer Mother Family Medical History: Cancer Additional Family Medical History / Comment(s): COLON CANCER. Father Family Medical History: Cancer Additional Family Medical History / Comment(s): COLON CA LIVER, prostate Medications and Allergies Home Medications Medication Instructions Recorded Confirmed Type Aspirin [Adult Low Dose Aspirin EC] 81 mg PO DAILY 08/01/20 08/01/20 History Miralax Powder 30 oz PO DAILY 08/01/20 08/01/20 History Simvastatin [Zocor] 20 mg PO HS 08/01/20 08/01/20 History Tamsulosin HCl [Flomax] 0.4 mg PO 1500 08/01/20 08/01/20 History Allergies Allergy/AdvReac Type Severity Reaction Status Date / Time morphine Allergy Rash/Hives/Shortness Verified 08/01/20 09:47 of Breath
[~2020-08-02 08:57] MED LIST: LACTATED RINGERS 1,000 ML IV SCH
[2020-08-02 10:09] VITALS: TEMP 98.3
[2020-08-02] MEDS ORDERED: PROPOFOL 10 MG/ML 20 ML VIAL IV ONE (10:16)
[2020-08-02] MEDS ORDERED: LIDOCAINE 1% INJ 10MG/ML (20 ML MDV) ONE (10:16)
[2020-08-02] MEDS ORDERED: LIDOCAINE 1% (10MG/ML) FOR IV START INTRADERMA ONE (10:25)
--- NOTE | 2020-08-02 11:04 | P.PCN ---
Date of Procedure: 08/02/20 Description of Procedure: PREOPERATIVE DIAGNOSIS: Gastroesophageal reflux disease. History of hiatal hernia. POSTOPERATIVE DIAGNOSIS: History of hiatal hernia. Gastritis. Gastroesophageal reflux disease. Moderate retained food OPERATION: Esophagogastroduodenoscopy with biopsies along antrum. SURGEON: Trinh Lynn MD ANESTHESIA: MAC. INDICATIONS: The patient is a 65-year-old male who presents with a history of reflux disease. Benefits and risks of the procedure were described. Informed consent was obtained. DESCRIPTION: The patient was brought into the endoscopy suite and laid in the left lateral decubitus position. An Olympus gastroscope was passed along the posterior oropharynx down to the distal esophagus where the squamocolumnar junction was encountered at 40 cm from the incisors. The stomach was entered and no bile reflux was found. Additional findings are listed below. Biopsies with cold forceps were obtained of the antrum. The first through third portion of the duodenum was examined and unremarkable. Retroflexion of the scope demonstrated moderate retained food preventing view of the valve. The squamocolumnar junction demonstrated LA grade B erosive esophagitis. The stomach was desufflated. The patient tolerated the procedure well. FINDINGS: Squamocolumnar junction 40 cm from the incisors. Diaphragmatic hiatus at 40 cm. Hill grade 4 lower esophageal valve. LA grade B erosive esophagitis. Moderate retained food in stomach No active duodenitis. Chronic gastritis RECOMMENDATIONS: Upper endoscopy as needed.
[2020-08-02 11:23] VITALS: BP 111/72; PULSE 69; RESP 18
== END 2020-08-02 11:34 | disposition home or self-care (01) ==
LOC: ORWHC2ENDO 08:57
PROVIDERS: ATTEND Surgery Plastic and Reconstructive Surgery
DX: K21.00 Gastro-esophageal reflux disease with esophagitis, without bleeding (principal); K29.50 Unspecified chronic gastritis without bleeding; K22.10 Ulcer of esophagus without bleeding; K31.89 Other diseases of stomach and duodenum; E78.5 Hyperlipidemia, unspecified; N39.8 Other specified disorders of urinary system; N40.0 Benign prostatic hyperplasia without lower urinary tract symptoms; Z87.19 Personal history of other diseases of the digestive system; Z88.5 Allergy status to narcotic agent; Z85.828 Personal history of other malignant neoplasm of skin; Z86.718 Personal history of other venous thrombosis and embolism; Z87.01 Personal history of pneumonia (recurrent); Z86.19 Personal history of other infectious and parasitic diseases; Z87.39 Personal history of other diseases of the musculoskeletal system and connective tissue; Z90.89 Acquired absence of other organs; Z90.49 Acquired absence of other specified parts of digestive tract; Z98.890 Other specified postprocedural states; Z79.82 Long term (current) use of aspirin; Z79.899 Other long term (current) drug therapy; Z80.9 Family history of malignant neoplasm, unspecified; Z80.0 Family history of malignant neoplasm of digestive organs; Z80.42 Family history of malignant neoplasm of prostate
CPT/HCPCS: 88305; 43239; J2001; J2704

== ENCOUNTER 2020-08-23 09:57 | Day surgery (SDC) | payer OTHER ==
[2020-08-18 14:24] VITALS: BMI 32.5
--- NOTE | 2020-08-23 08:30 | P.GSHP ---
History of Present Illness H&P Date: 08/23/20 CHIEF COMPLAINT: Esophageal stricture HISTORY OF PRESENT ILLNESS: The patient is a 65-year-old male who presents reports dysphagia. Upper endoscopy was offered for further evaluation and management. PAST MEDICAL HISTORY: Please see list. PAST SURGICAL HISTORY: Please see list. MEDICATIONS: Please see list. ALLERGIES: Please see list. SOCIAL HISTORY: No illicit drug use FAMILY HISTORY: No reports of Crohn disease or ulcerative colitis. REVIEW OF ORGAN SYSTEMS: CONSTITUTIONAL: No reports of fevers or chills. GI: Denies any blood in stools or constipation. PHYSICAL EXAM: VITAL SIGNS: Stable GENERAL: Well-developed and pleasant in no acute distress. HEENT: No scleral icterus. Extraocular movements grossly intact. Moist buccal mucosa. NECK: Supple without lymphadenopathy. CHEST: Unlabored respirations. Equal bilateral excursions. CARDIOVASCULAR: Regular rate and rhythm. Distal 2+ pulses. ABDOMEN: Soft, nondistended. MUSCULOSKELETAL: No clubbing, cyanosis, or edema. ASSESSMENT: 1. Esophageal stricture PLAN: 1. Recommend proceeding with an upper endoscopy with rigid dilators. Past Medical History Past Medical History: Cancer, Chest Pain / Angina, Deep Vein Thrombosis (DVT), GERD/Reflux, Hyperlipidemia, Pneumonia Additional Past Medical History / Comment(s): L lower leg DVT, blood clot behind R eye, basal skin cancer, pneumonia with SIRS, L foot plantar fascitis, urine flow issues at times, past hiatal hernia, diff swallowing starting July 2020, gas issues and constipation, History of Any Multi-Drug Resistant Organisms: C-DIFF Date of last positivie culture/infection: 2009 MDRO Source:: stool Past Surgical History: Adenoidectomy, Bowel Resection, Cholecystectomy, Hernia Repair, Tonsillectomy Additional Past Surgical History / Comment(s): Exploratory lap with lysis of adhesions, surgery to repair hernia and removal of scar tissue and bowel obtruct ion 02/21, yamileth fundiplication, EGD, colonoscopies, T&A twice, skin cancer removals, Past Anesthesia/Blood Transfusion Reactions: No Reported Reaction Smoking Status: Never smoker - Past Family History Brother(s) Family Medical History: Cancer Mother Family Medical History: Cancer Additional Family Medical History / Comment(s): COLON CANCER. Father Family Medical History: Cancer Additional Family Medical History / Comment(s): COLON CA LIVER, prostate Medications and Allergies Home Medications Medication Instructions Recorded Confirmed Type Aspirin [Adult Low Dose Aspirin EC] 162 mg PO DAILY 08/01/20 08/18/20 History Miralax Powder 30 oz PO DAILY 08/01/20 08/18/20 History Simvastatin [Zocor] 20 mg PO HS 08/01/20 08/18/20 History Tamsulosin HCl [Flomax] 0.4 mg PO 1500 08/01/20 08/18/20 History Allergies Allergy/AdvReac Type Severity Reaction Status Date / Time morphine Allergy Rash/Hives/Shortness Verified 08/18/20 14:20 of Breath
[~2020-08-23 09:57] MED LIST changes: +LIDOCAINE 1% (10MG/ML) FOR IV START INTRADERMA PRN
[2020-08-23] MEDS ORDERED: LIDOCAINE 1% INJ 10MG/ML (20 ML MDV) ONE (11:54)
[2020-08-23] MEDS ORDERED: KETAMINE 10 MG/ML 20 ML VIAL ONE (11:54)
[2020-08-23] MEDS ORDERED: PROPOFOL 10 MG/ML 20 ML VIAL IV ONE (11:54)
[2020-08-23] MEDS ORDERED: GLYCOPYRROLATE 0.2 MG/ML 2 ML VIAL ONE (11:54)
--- NOTE | 2020-08-23 12:45 | P.PCN ---
Date of Procedure: 08/23/20 Description of Procedure: PREOPERATIVE DIAGNOSIS: Dysphagia. Gastroesophageal reflux disease Esophageal stricture POSTOPERATIVE DIAGNOSIS: Dysphagia. Gastroesophageal reflux disease Esophageal stricture Gastroparesis OPERATION: Esophagogastroduodenoscopy with rigid dilator over the guidewire 60 Fr. SURGEON: Trinh Lynn MD ANESTHESIA: MAC. INDICATIONS: The patient is a 65-year-old male who presents with a history of dysphagia. Benefits and risks of the procedure were described. Informed consent was obtained. DESCRIPTION: The patient was brought into the endoscopy suite and laid in the left lateral decubitus position. After a timeout was confirmed, the procedure was initiated. An Olympus gastroscope was passed and the stomach was entered. Mild gastritis was identified. The scope was advanced to the duodenum which was unremarkable. Retroflexion the scope confirmed a Hill grade 2 lower esophageal valve. Next using an [place] African rigid dilator, a guidewire was placed through the pediatric gastroscope. Next the scope was withdrawn. A 60-Niuean rigid [place] African dilator was passed carefully along the posterior oropharynx to 50 cm and left in place for 2-3 minutes stretch. The dilator was withdrawn including the guidewire. The scope was reentered along the posterior oropharynx with no findings of full-thickness tear of the upper esophageal sphincter. No full-thickness injury was encountered. The GI tract was desufflated. The patient tolerated the procedure well. FINDINGS: Squamocolumnar junction unremarkable at 40 cm. Distal esophageal stricture without ulceration Central African rigid dilator 60-Niuean completed. No recurrent hiatus hernia Diffuse gastritis. Hill grade 2 lower esophageal valve. LA grade B esophagitis. RECOMMENDATIONS: Upper endoscopy as needed Plan - Discharge Summary New Discharge Prescriptions: Continue Aspirin [Adult Low Dose Aspirin EC] 162 mg PO DAILY Miralax Powder 30 oz PO DAILY Simvastatin [Zocor] 20 mg PO HS Tamsulosin HCl [Flomax] 0.4 mg PO 1500 Discharge Medication List Aspirin [Adult Low Dose Aspirin EC] 162 mg PO DAILY 08/01/20 [History] Miralax Powder 30 oz PO DAILY 08/01/20 [History] Simvastatin [Zocor] 20 mg PO HS 08/01/20 [History] Tamsulosin HCl [Flomax] 0.4 mg PO 1500 08/01/20 [History] Follow up Appointment(s)/Referral(s): Trinh Lynn MD [STAFF PHYSICIAN] - 09/05/20 Patient Instructions/Handouts: *[facility] - (Anesthesia) Endoscopy Discharge Instructions, Upper Endoscopy (DC), Esophageal Dilation (DC) Activity/Diet/Wound Care/Special Instructions: Diet as tolerated Discharge Disposition: HOME SELF-CARE
[2020-08-23 12:50] VITALS: BP 137/78; PULSE 78; RESP 18
== END 2020-08-23 12:50 | disposition home or self-care (01) ==
LOC: ORWHC2ENDO 09:57
PROVIDERS: ATTEND Surgery Plastic and Reconstructive Surgery
DX: K22.2 Esophageal obstruction (principal); K29.70 Gastritis, unspecified, without bleeding; K21.00 Gastro-esophageal reflux disease with esophagitis, without bleeding; E78.5 Hyperlipidemia, unspecified; Z87.01 Personal history of pneumonia (recurrent); Z86.718 Personal history of other venous thrombosis and embolism; Z85.828 Personal history of other malignant neoplasm of skin; M72.2 Plantar fascial fibromatosis; Z86.19 Personal history of other infectious and parasitic diseases; Z90.49 Acquired absence of other specified parts of digestive tract; I20.9 Angina pectoris, unspecified; G35 Multiple sclerosis; Z98.890 Other specified postprocedural states; K59.00 Constipation, unspecified; Z80.0 Family history of malignant neoplasm of digestive organs; Z80.8 Family history of malignant neoplasm of other organs or systems; Z80.42 Family history of malignant neoplasm of prostate; Z79.82 Long term (current) use of aspirin; Z79.899 Other long term (current) drug therapy; Z88.5 Allergy status to narcotic agent
CPT/HCPCS: 43248; J2001; J2704; 43249

== ENCOUNTER → 2020-09-22 | Outpatient (CLI) | payer OTHER ==
--- NOTE | 2020-09-22 10:02 | FL ---
EXAMINATION TYPE: FL barium swallow DATE OF EXAM: 09/22/2020 CLINICAL INDICATION: 65-year-old male R13.10, dysphagia. Patient with visit on 07/07/2020 for inability to swallow. Patient with Amanda fundoplication in 2012 and dilatation in August 2020. COMPARISON: 07/14/2020 Total Fluoroscopy Time: 1 minute 46 seconds FINDINGS: Only single contrast thin barium was ingested. There is passage of contrast at the gastroesophageal junction; however, there is mild to moderate dilatation of the distal thoracic esophagus with progres sive stasis of oral contrast. Secondary and tertiary contractions of the esophagus are seen. There is gastroesophageal reflux. There is likely a tiny hiatal hernia. Allowing for single contrast assessm ent, no discrete filling defect or mucosal lesion is identified. IMPRESSION: 1. Status post Amanda fundoplication. There is likely a tiny recurrent hiatal hernia above the Amanda fundoplication. 2. There is passage of oral contrast at the gastroesophageal junction; however, there is mild to mode rate dilatation of the distal thoracic esophagus. Progressive stasis of oral contrast. 3. Secondary and tertiary contractions of the esophagus are seen.
== END | disposition home or self-care (01) ==
LOC: RADUSWWP 08:38
PROVIDERS: ATTEND Surgery Plastic and Reconstructive Surgery
DX: R13.10 Dysphagia, unspecified (principal)
CPT/HCPCS: 74220

== ENCOUNTER 2020-10-20 10:00 | Observation (INO) | payer OTHER ==
--- NOTE | 2020-10-20 07:49 | P.GSHP ---
History of Present Illness H&P Date: 10/20/20 CHIEF COMPLAINT: Paraesophageal hiatal hernia with gastroesophageal reflux disease. HISTORY OF PRESENT ILLNESS: The patient is a 65-year-old male who presents with paraesophageal hiatal hernia with recurrence including dysphagia ongoing for more than 6 months. His symptoms have become worse. Her reports chest pressure as a result. He has completed barium swallow including upper endoscopy workup. Now he presents for surgical intervention. PAST MEDICAL HISTORY: Please see list. PAST SURGICAL HISTORY: Please see list. MEDICATIONS: Please see list. ALLERGIES: Please see list. SOCIAL HISTORY: No illicit drug use FAMILY HISTORY: No reports of Crohn disease or ulcerative colitis. REVIEW OF ORGAN SYSTEMS: CONSTITUTIONAL: No reports of fevers or chills. PHYSICAL EXAM: VITAL SIGNS: Stable GENERAL: Well-developed pleasant and in no acute distress. HEENT: No scleral icterus. Extraocular movements grossly intact. Moist buccal mucosa. NECK: Supple without lymphadenopathy. CHEST: Unlabored respirations. Equal bilateral excursions. CARDIOVASCULAR: Regular rate and rhythm. Distal 2+ pulses. ABDOMEN: Soft, nondistended. No peritoneal signs. MUSCULOSKELETAL: No clubbing, cyanosis, or edema. SKIN: Well-perfused. Good skin turgor. ESOPHAGRAM: Presence of esophageal obstruction with fundoplasty ASSESSMENT: 1. Recurrent diaphragmatic paraesophageal hiatal hernia with severe gastroesophageal reflux disease 2. Esophagogastric obstruction PLAN: 1. Recommend proceeding with a robotic paraesophageal hiatal hernia with possible mesh. 2. Benefits and risks of surgical intervention was discussed including possibility of open technique. 3. Inpatient hospitalization recommended of 2 nights 4. DVT prophylaxis. 5. Antibiotic prophylaxis. 6. He is a revisional procedure with moderate elevated risks described Past Medical History Past Medical History: Cancer, Chest Pain / Angina, Deep Vein Thrombosis (DVT), GERD/Reflux, Hyperlipidemia, Pneumonia Additional Past Medical History / Comment(s): L lower leg DVT, blood clot behind R eye, basal skin cancer, pneumonia with SIRS, L foot plantar fascitis, urine flow issues at times, past hiatal hernia, diff swallowing starting July 2020, gas issues and constipation, History of Any Multi-Drug Resistant Organisms: C-DIFF Date of last positivie culture/infection: 2009 MDRO Source:: stool Past Surgical History: Adenoidectomy, Bowel Resection, Cholecystectomy, Hernia Repair, Tonsillectomy Additional Past Surgical History / Comment(s): Exploratory lap with lysis of adhesions, surgery to repair hernia and removal of scar tissue and bowel obtruction 02/21, yamileth fundiplication, EGD, colonoscopies, T&A twice, skin can cer removals, Past Anesthesia/Blood Transfusion Reactions: No Reported Reaction, Family History of Problems w/ Anesthesia Additional Past Anesthesia/Blood Transfusion Reaction / Comment(s): one time experienced unable to urinate after anesthesia and had catheter. step brother quit breathing during anesthesia Smoking Status: Never smoker - Past Family History Brother(s) Family Medical History: Cancer Mother Family Medical History: Cancer, COPD Additional Family Medical History / Comment(s): COLON CANCER. Father Family Medical History: Cancer Additional Family Medical History / Comment(s): COLON CA LIVER, prostate Medications and Allergies Home Medications Medication Instructions Recorded Confirmed Type Aspirin [Adult Low Dose Aspirin EC] 3 tab PO DAILY 08/01/20 10/18/20 History Miralax Powder 30 oz PO DAILY 08/01/20 10/18/20 History Simvastatin [Zocor] 20 mg PO DAILY 08/01/20 10/18/20 History Tamsulosin HCl [Flomax] 0.4 mg PO 1500 08/01/20 10/18/20 History Ascorbic Acid [Vitamin C] 3,000 mg PO BID 10/18/20 10/18/20 History Cholecalciferol [Vitamin D3 (25 10,000 units PO DAILY 10/18/20 10/18/20 History Mcg = 1000 Iu)] Docusate [Colace] 100 mg PO BID 10/18/20 10/18/20 History K2 1 tab PO DAILY 10/18/20 10/18/20 History Lions José 1,200 mg PO DAILY 10/18/20 10/18/20 History Multivitamins, Thera [Multivitamin 1 tab PO DAILY 10/18/20 10/18/20 History (formulary)] Tyler-3 Fatty Acids [Tyler-3] 1,200 mg PO BID 10/18/20 10/18/20 History Allergies Allergy/AdvReac Type Severity Reaction Status Date / Time morphine Allergy Rash/Hives/Shortness Verified 10/18/20 14:58 of Breath
[~2020-10-20 10:00] MED LIST changes: +ACETAMINOPHEN TAB 500 MG TAB PO PRN; +CHLORHEXIDINE GLUCONATE 15 ML CUP MUCOUS MEM PRN; +DEXAMETHASONE SOD PHOSPHATE 4 MG/ML 1 ML VIAL IV ONE; +GABAPENTIN 300 MG CAP PO PRN; +HEPARIN SODIUM,PORCINE/PF 5,000 UNIT/0.5 ML SYRINGE SQ PRN; -LACTATED RINGERS 1,000 ML IV SCH; -LIDOCAINE 1% (10MG/ML) FOR IV START INTRADERMA PRN; +MIDAZOLAM 2 MG/2 ML VIAL IV PRN; +ONDANSETRON 4 MG/2 ML VIAL IVP ONE; +PANTOPRAZOLE 40 MG/10 ML VIAL IVP PRN; +TAMSULOSIN 0.4 MG CAP.ER.24H PO PRN; +fentaNYL (PF) 50 MCG/ML 2 ML AMP IV PRN
[2020-10-20] MEDS: LACTATED RINGERS 1,000 ML IV SCH ×4 (11:13→21:01)
[2020-10-20 11:23] LABS: HGB 16.9 gm/dL (13.0-17.5); MCH 32.5 pg (25.0-35.0); MCHC 35.1 g/dL (31.0-37.0); MCV 92.4 fL (80.0-100.0); Mean Platelet Volume 7.1; Platelet Count 224 k/uL (150-450); RDW 12.5 % (11.5-15.5); WBC 6.4 k/uL (3.8-10.6)
[2020-10-20 12:37] LABS: ALT 21 U/L (4-49); AST 32 U/L (17-59); African American GFR (CKD) >90 (>60 ml/min/1.73 sqM); Albumin 4.6 g/dL (3.5-5.0); Alkaline Phosphatase 79 U/L (38-126); Anion Gap 8 mmol/L; Blood Urea Nitrogen 19 mg/dL (9-20); Calcium 9.7 mg/dL (8.4-10.2); Carbon Dioxide 30 mmol/L (22-30); Chloride 103 mmol/L (98-107); Glucose 104 mg/dL (74-99); Non-African American GFR(CKD) >90 (>60 ml/min/1.73 sqM); Potassium 4.4 mmol/L (3.5-5.1); Sodium 141 mmol/L (137-145); Total Bilirubin 0.5 mg/dL (0.2-1.3); Total Protein 7.5 g/dL (6.3-8.2)
[2020-10-20] MEDS ORDERED: PROPOFOL 10 MG/ML 20 ML VIAL IV ONE (12:53)
[2020-10-20] MEDS ORDERED: LABETALOL 5 MG/ML VIAL MDV ONE (12:53)
[2020-10-20] MEDS ORDERED: HYDROmorphone (PF) 1 MG/ML ONE (12:53)
[2020-10-20] MEDS ORDERED: SUCCINYLCHOLINE CHLORIDE 100 MG/5 ML SYR IV ONE (12:53)
[2020-10-20] MEDS ORDERED: fentaNYL (PF) 50 MCG/ML 2 ML AMP ONE (12:53)
[2020-10-20] MEDS ORDERED: NEOSTIGMINE 1 MG/ML 10 ML VIAL ONE (12:53)
[2020-10-20] MEDS ORDERED: ROCURONIUM 10 MG/ML (5 ML VIAL) IV ONE (12:53)
[2020-10-20] MEDS ORDERED: LIDOCAINE 1% INJ 10MG/ML (20 ML MDV) ONE (12:53)
[2020-10-20] MEDS ORDERED: MIDAZOLAM 2 MG/2 ML VIAL ONE (12:53)
[2020-10-20] MEDS ORDERED: GLYCOPYRROLATE 0.2 MG/ML 2 ML VIAL ONE (12:53)
[2020-10-20] MEDS ORDERED: LIDOCAINE 1%-EPI 1:100,000 20 ML VIAL SQ ONE (12:57)
[2020-10-20] MEDS ORDERED: LACTATED RINGERS 1,000 ML IV ONE (13:35)
[2020-10-20] MEDS ORDERED: NALOXONE 0.4 MG/ML 1 ML VIAL IV PRN (15:52)
[2020-10-20] MEDS ORDERED: ONDANSETRON 4 MG/2 ML VIAL IVP PRN (15:55)
--- NOTE | 2020-10-20 16:05 | P.OP ---
Date of Procedure: 10/20/20 Description of Procedure: SURGEON: HORTENCIA MOTA MD PREOPERATIVE DIAGNOSES: 1. Paraesophageal hiatal hernia, midline, recurrent 2. Gastroesophageal reflux disease. 3. History of previous Amanda fundoplasty 4. Epigastric abdominal pain 5. Ortega's esophagus 6. Dysphagia 7. Ineffective esophageal motility 8. Esophageal obstruction 9. Peritoneal adhesions 10. History of diverticulitis POSTOPERATIVE DIAGNOSES: 1. Paraesophageal hiatal hernia, midline, recurrent, incarcerated 5 x 7 cm with obstruction 1. Paraesophageal hiatal hernia, midline, recurrent 2. Gastroesophageal reflux disease. 3. History of previous Amanda fundoplasty 4. Epigastric abdominal pain 5. Ortega's esophagus 6. Dysphagia 7. Ineffective esophageal motility 8. Esophageal obstruction 9. Peritoneal adhesions 10. History of diverticulitis 11. Incisional hernia OPERATION: 1. Robotic-assisted da Alonso Xi laparoscopic takedown of Amanda fundoplasty 2. Robotic-assisted da Alonso Xi laparoscopic extensive lysis of adhesions over 2 hours 3. Robotic-assisted da Alonso Xi laparoscopic reduction and repair of recurrent incarcerated paraesophageal hiatal hernia, 4 x 4 cm, with Lamont Biopatch A 8 x 8 cm. 4. Intraoperative esophagogastroduodenoscopy 5. Placement of 54-Paraguayan bougie for pre-existing esophageal dysmotility Implants: Lamont Biopatch A 8 x 8 cm Anesthesia: GETA local Estimated Blood Loss (ml): 20 Pathology: none sent Condition: stable Disposition: floor Operative Findings: 1. Severe peritoneal adhesions perigastric with incarcerated hiatal hernia with obstruction with previous Amanda fundoplasty requiring over 2 hours 2. Recurrent hiatal hernia measured 4 x 3 cm with incarceration 3. Ortega's esophageal with esophageal stricture 4. Placement of 54 Fr bougie to address pre-existing esophageal dysmotility w ith esophageal stricture 5. Hill grade 1 lower esophageal sphincter confirmed upon upper endoscopy INDICATIONS: The patient is a 65-year-old male who presents with Ortega's esophagus, gastroesophageal reflux and a symptomatic diaphragmatic hiatal hernia. Preoperative workup including upper endoscopy demonstrated recurrent hiatal hernia and slipped Amanda fundoplasty. Given the severity of his symptoms, particularly of his symptomatic diaphragmatic hiatal hernia, surgical intervention Was offered. Benefits and risks including bleeding, infection, recurrence, dysphagia, injury to the esophagus, and stomach injury to the lung, need for further surgery was described at length. Informed consent was obtained. DESCRIPTION: The patient was brought into the operating room and placed in odell pine position. Preoperatively he had received heparin subcutaneously for DVT prophylaxis. After general induction, the abdomen was prepped and draped in standard sterile fashion. Shelley catheter was placed. Ioban draping was placed along the abdomen. A timeout protocol was confirmed with the surgical team, for which the patient's name, procedure to be performed including DVT prophylaxis with bilateral SCDs, and preoperative antibiotics were also confirmed. Robotic da Alonso Xi system was prepped and primed. At 12 cm from the xiphoid to just below the umbilicus, proposed port sites were marked with indelible marker along the left axillary line, left mid-clavicular line with each ports were marked 10 cm from each other. A 5 mm 0 degrees laparoscopic trocar entry was performed along the left upper quadrant. The abdomen was insufflated to 15 mmHg pressure he tolerated well. Diagnostic laparoscopy demonstrated no injury to bowel, viscera, or mesentery. No injury had occurred to the small bowel or viscera. Along the hiatus, moderate perigastric adhesions were found from the previous fundoplasty. All trochars were positioned along the left upper abdomen due to severe adh esions. An 8-mm port was were placed along the left lateral abdominal wall. The camera 8-mm port was maintained along the epigastrium. A 12 mm port was placed along the left upper abdominal wall after exchanging the 5 mm port. Please note that the ports were placed at least 20 cm away from the target anatomy. Care was taken to check that each robotic arm were safely away from collision with the bed or the patient. At the epigastrium, a medium sized Nick liver retractor was placed under direct visualization with the Iron Burling And Joining Supervisor placed under the right shoulder of the patient. The additional third robotic arm was used. The patient was repositioned in reverse Trendelenburg position at 21-degrees after lowering the bed. The robot was docked above the left side of the patient. Using a grasper for arm 3, a grasper for arm 1, including vessel sealer for arm 4, the robotic system was docked and primed as described. Instruments were interchanged by the marketing assistant manager. I had sat at the console. Additionally severe epigastric adhesions were found with ventral hernia requiring extensive lysis of adhesions using vessel sealer. The phrenoesophageal ligament had moderate scarring where the distal esophagus was mobilized circumferentially. Care was taken to avoid any injury to the stomach and esophagus. The hiatal hernia sac was incarcerated into the mediastinum and divided to allow complete mobilization and freeing of the distal esophagus into the abdominal cavity. Care was taken to avoid any gastrotomy to the incarcerated upper pole of the stomach including takedown of the Amanda fundoplasty. Extensive lysis of adhesions went more than 2 hours for extended dissection of the adherent stomach into the mediastinum. The hernia sac was divided to release mobility of the esophagus. Dissection went to the mid esophagus. The measured defect was consistent with 4 cm axial length and 3 cm in width. To prevent any injury to the stomach or esophagus, intraoperative EGD wa s used to monitor the slipped Amanda. Once the hiatus and crura was dissected, nonabsorbable 2-0 VLOC suture was placed as a running suture to re-approximate the diaphragmatic hiatus posteriorly. To buttress the repair, a Lamont Biopatch A was prepared along the back table and cut to reinforce the repair as an underlay. The mesh was placed along the crural repair posteriorly then cut in half and tagged using horizontal mattress sutures using 2-0 VLOC. I went to the head of the bed to perform intraoperative esophagogastroduodenoscopy and placement of bougie. The 54-Paraguayan bougie was placed along the posterior oropharynx to address esophageal dysmotility and prior esophageal stricture. The bougie was removed. An Olympus gastroscope was passed through posterior oropharynx, where the GE junction was found just distal to the diaphragmatic hiatus. Complete takedown of the Amanda was confirmed as a tortuous winding stomach was unraveled. The stomach was entered. Chronic gastritis was found. Retroflexion of the scope confirmed Hill grade 1 lower esophageal sphincter. The stomach had been desufflated. This concluded the endoscopic portion of the case. The robot was undocked from the patient. I re-scrubbed into the case. All instruments and pneumoperitoneum were evacuated from the abdominal cavity. Incisions were reapproximated using 4-0 Monocryl in an interrupted subcuticular fashion. All incisions were cleaned using dilute hydrogen peroxide. Fascial incisions were less than 8 mm in size. Liquid glue was applied to the skin. Local anesthetic was infiltrated in all wounds for postop analgesia. Multiple intra-abdominal films were obtained. At the end of the procedure, needle, sponge, and instrument count was verified correct by the surgical garment fitter. The patient had tolerated the procedure well and was taken to the postanesthesia unit in stable condition. Intraoperative films were reviewed with the patient's family who were pleased with the level of care. COMPLEXITY: Increased complexity of the case includes recurrent obstructing paraesophageal midline diaphragmatic hiatal hernia with extensive lysis of adhesions performed as well as moderate dissection into the chest requiring over 2 hours to release peritoneal adhesions
[2020-10-20] MEDS: ACETAMINOPHEN IV (For NPO) 1,000 MG in EMPTY BAG 1 BAG IVPB SCH ×2 (17:40→23:55)
[2020-10-20] MEDS: METOCLOPRAMIDE 5 MG/ML 2 ML VIAL IVP SCH ×2 (17:42→23:53)
[2020-10-20] MEDS: HYDROmorphone 1 MG/ML 1 ML SYRINGE IVP PRN (20:52)
[2020-10-21] MEDS: HYDROmorphone 1 MG/ML 1 ML SYRINGE IVP PRN ×3 (03:13→11:57)
[2020-10-21 07:34] VITALS: BP 130/80; PULSE 69; RESP 16; TEMP 98
[2020-10-21] MEDS: METOCLOPRAMIDE 5 MG/ML 2 ML VIAL IVP SCH ×2 (07:41→11:52)
[2020-10-21] MEDS: ACETAMINOPHEN IV (For NPO) 1,000 MG in EMPTY BAG 1 BAG IVPB SCH ×2 (07:41→11:58)
--- NOTE | 2020-10-21 09:08 | FL ---
EXAMINATION TYPE: FL esophagus cervic/pharynx DATE OF EXAM: 10/21/2020 LIMITED UGI-ESOPHAGRAM: CLINICAL HISTORY: Epigastric pain and reflux. Amanda fundoplication surgery one day earlier. TECHNIQUE: Limited esophagram is performed utilizing the oz of Isovue-370. A total of 0 seconds of f luoroscopic time. 5 spot images saved after patient drank contrast. FINDINGS: The patient swallowed contrast without difficulty or delay. There is good flow of contra st along the diaphragmatic hiatus into the stomach, there is no evidence of contrast extravasation to suggest leak. No persistent hiatal hernia is seen. Patient remains asymptomatic. Small amount of danya e air presumed postsurgical below diaphragm. IMPRESSION: No evidence of leak or significant obstruction status post Ronald fundoplication surgery yesterday.
[2020-10-21 13:00] VITALS: BMI 31.8
--- NOTE | 2020-10-21 13:42 | P.DS ---
Providers Date of admission: 10/20/20 18:42 Expected date of discharge: 10/21/20 Attending physician: Trinh Lynn Primary care physician: Lurdes Swanson - Discharge Diagnosis(es) (1) Hiatal hernia with GERD Current Visit: Yes Status: Acute (2) Hiatal hernia with obstruction but no gangrene Current Visit: Yes Status: Acute (3) Esophageal obstruction Current Visit: Yes Status: Acute Hospital Course: CHIEF COMPLAINT: Esophageal obstruction due to Amanda fundoplication HISTORY OF PRESENT ILLNESS: The patient is a 65-year-old male with chronic esophageal obstruction due to prior Amanda fundoplication. He underwent takedown esophagoplasty lysis of adhesions and repair of recurrent hiatal hernia. He reports moderate improvement of his symptoms, "its no longer getting stuck." His pain is controlled. ROS: No reports of nausea and vomiting. No fevers or chills. No new chest pain. PHYSICAL EXAM: VITAL SIGNS: Reviewed CONSTITUTIONAL: Well developed and in no acute distress. EYES: Conjuctivae without sclera icterus. Extraocular movements grossly intact. HEAD, EARS, NOSE, THROAT: Moist buccal mucosa. Head is atraumatic, normocephalic. Hears conversational speech. No nasal drainage. RESPIRATORY: Non-labored respirations and equal bilateral excursions. CARDIOVASCULAR: Palpable 2+ radial pulses. ABDOMEN: No peritonitis. MUSCULOSKELETAL: No gross deformity of the lower extremities noted. No clubbing. No cyanosis. SKIN: Good skin turgor. Well perfused. NEUROLOGIC: Cranial nerves II through XII grossly intact. No focal or lateralizing signs. PSYCH: Appropriate affect. STUDIES: Esophagram reviewed without leak or obstruction. CLINICAL LABS: WBC count within normal limits on admission. ASSESSMENT: 1. Esophageal obstruction with recurrent hiatal hernia PLAN: 1. Clinically stable. Discharge home on Amanda diet Patient Condition at Discharge: Good Plan - Discharge Summary Discharge Rx Participant: No New Discharge Prescriptions: New bisacodyL [Dulcolax] 5 mg PO DAILY PRN #10 tablet. PRN Reason: Constipation Simethicone 40 mg/0.6 ml Drops [Mylicon Drops] 40 mg PO PCHS PRN #30 ml PRN Reason: Gas Acetaminophen Oral Susp [Tylenol Oral Susp] 500 mg PO Q4-6H PRN #400 ml PRN Reason: Pain Ondansetron Odt [Zofran Odt] 4 mg PO Q8HR PRN #9 tab PRN Reason: Nausea Continue Aspirin [Adult Low Dose Aspirin EC] 3 tab PO DAILY Miralax Powder 30 oz PO DAILY Cholecalciferol [Vitamin D3 (25 Mcg = 1000 Iu)] 10,000 units PO DAILY Lions José 1,200 mg PO DAILY K2 1 tab PO DAILY Simvastatin [Zocor] 20 mg PO DAILY Tamsulosin HCl [Flomax] 0.4 mg PO 1500 [place]-3 Fatty Acids [[place]-3] 1,200 mg PO BID Ascorbic Acid [Vitamin C] 3,000 mg PO BID Multivitamins, Thera [Multivitamin (formulary)] 1 tab PO DAILY Docusate [Colace] 100 mg PO BID Discharge Medication List Aspirin [Adult Low Dose Aspirin EC] 3 tab PO DAILY 08/01/20 [History] Miralax Powder 30 oz PO DAILY 08/01/20 [History] Simvastatin [Zocor] 20 mg PO DAILY 08/01/20 [History] Tamsulosin HCl [Flomax] 0.4 mg PO 1500 08/01/20 [History] Ascorbic Acid [Vitamin C] 3,000 mg PO BID 10/18/20 [History] Cholecalciferol [Vitamin D3 (25 Mcg = 1000 Iu)] 10,000 units PO DAILY 10/18/20 [History] Docusate [Colace] 100 mg PO BID 10/18/20 [History] K2 1 tab PO DAILY 10/18/20 [History] Lions José 1,200 mg PO DAILY 10/18/20 [History] Multivitamins, Thera [Multivitamin (formulary)] 1 tab PO DAILY 10/18/20 [History] [place]-3 Fatty Acids [[place]-3] 1,200 mg PO BID 10/18/20 [History] Acetaminophen Oral Susp [Tylenol Oral Susp] 500 mg PO Q4-6H PRN #400 ml 10/21/20 [Rx] Ondansetron Odt [Zofran Odt] 4 mg PO Q8HR PRN #9 tab 10/21/20 [Rx] Simethicone 40 mg/0.6 ml Drops [Mylicon Drops] 40 mg PO PCHS PRN #30 ml 10/21/20 [Rx] bisacodyL [Dulcolax] 5 mg PO DAILY PRN #10 tablet. 10/21/20 [Rx] Follow up Appointment(s)/Referral(s): Trinh Lynn MD [STAFF PHYSICIAN] - 10/24/20 Patient Instructions/Handouts: Hiatal Hernia (DC) Activity/Diet/Wound Care/Special Instructions: Liquid diet only for 2 weeks until NOVEMBER 03 No lifting over 4 pounds in 4 weeks, NovemberSeptember shower No soaking in bath tubs for 2 weeks, NOVEMBER 03 Please notify your surgeon if you develop nausea and vomiting including new onset of abdominal pain. Please ambulate at all times. Use Simethicone, Gas-X, Tylenol and ibuprofen or Aleve scheduled for the next 24-48 hours for best pain relief. Use ice along incisions for the today to prevent swelling. Please open, cut, crush pills larger than the size of a tic tack No carbonated beverages. No straws. Do not remove scopolamine patch for 3 days, if present Avoiding Gas Avoid drinking through a straw. Do not chew gum or tobacco. These actions cause you to swallow air, which produces excess gas in your stomach. Chew with your mouth closed. Avoid any foods that cause stomach gas and distention. These foods include corn, dried beans, peas, lentils, onions, broccoli, cauliflower and any food from the cabbage family. Avoid carbonated drinks, alcohol, citrus and tomato products. Carbonated drinks (sodas) are not allowed for the first six to eight weeks after surgery. After this time you can try them again in small amounts Clear Liquid Diet The first diet after surgery is the clear liquid diet. It includes the following liquids: Apple juice Cranberry juice Grape juice Chicken broth Beef broth Flavored gelatin (Jell-O) Decaf tea and coffee Caffeinated beverages are permitted based on tolerance Popsicles Tajik ice Full Liquid Diet The full liquid diet contains anything on the clear liquid diet, plus: Milk, soy, rice and almond (no chocolate) Cream of wheat, cream of rice, grits Strained creamed soups (no tomato or broccoli) Vanilla and strawberry-flavored ice cream Sherbet Blended, custard styled or whipped yogurt (plain or vanilla only) Vanilla and butterscotch pudding (no chocolate or coconut) Nutritional drinks including Ensure, Boost, [place] Instant Breakfast (no chocolate-flavored) Note: Dairy products, such as milk, ice cream and pudding, may cause diarrhea in some people just after surgery. You may need to avoid milk products. If so, substitute them with lactose-free beverages, such as soy, rice, Lactaid or almond milks. Discharge Disposition: HOME SELF-CARE
[2020-10-21] MEDS ORDERED: TAMSULOSIN 0.4 MG CAP.ER.24H PO SCH (15:00)
== END 2020-10-21 15:59 | disposition home or self-care (01) ==
LOC: OR 10:00 → 4SSUR 15:40 → OR 18:42 → 4SSUR 18:42
PROVIDERS: ADMIT Surgery Plastic and Reconstructive Surgery; ATTEND Surgery Plastic and Reconstructive Surgery
DX: K44.0 Diaphragmatic hernia with obstruction, without gangrene (principal); K21.9 Gastro-esophageal reflux disease without esophagitis; K66.0 Peritoneal adhesions (postprocedural) (postinfection); K22.70 Barrett's esophagus without dysplasia; K22.4 Dyskinesia of esophagus; K91.89 Other postprocedural complications and disorders of digestive system; K22.2 Esophageal obstruction; K57.90 Diverticulosis of intestine, part unspecified, without perforation or abscess without bleeding; K43.2 Incisional hernia without obstruction or gangrene; K29.50 Unspecified chronic gastritis without bleeding; E78.5 Hyperlipidemia, unspecified; M72.2 Plantar fascial fibromatosis; K59.00 Constipation, unspecified; Z20.822 Contact with and (suspected) exposure to COVID-19; Z79.82 Long term (current) use of aspirin; Z79.899 Other long term (current) drug therapy; Z88.5 Allergy status to narcotic agent; Z87.01 Personal history of pneumonia (recurrent); Z16.24 Resistance to multiple antibiotics; Z85.828 Personal history of other malignant neoplasm of skin; Z86.718 Personal history of other venous thrombosis and embolism; Z90.49 Acquired absence of other specified parts of digestive tract; Z98.890 Other specified postprocedural states; Z80.0 Family history of malignant neoplasm of digestive organs; Z82.5 Family history of asthma and other chronic lower respiratory diseases; Z80.42 Family history of malignant neoplasm of prostate
CPT/HCPCS: 43282; S2900; 74210; 80053; 85027; 87635

== ENCOUNTER 2020-11-22 09:13 | Day surgery (SDC) | payer OTHER ==
[2020-11-20 12:59] VITALS: BMI 32.3
--- NOTE | 2020-11-22 08:44 | P.GSHP ---
History of Present Illness H&P Date: 11/22/20 CHIEF COMPLAINT: Esophageal stricture HISTORY OF PRESENT ILLNESS: The patient is a 65-year-old male who presents reports dysphagia. Upper endoscopy was offered for further evaluation and management. PAST MEDICAL HISTORY: Please see list. PAST SURGICAL HISTORY: Please see list. MEDICATIONS: Please see list. ALLERGIES: Please see list. SOCIAL HISTORY: No illicit drug use FAMILY HISTORY: No reports of Crohn disease or ulcerative colitis. REVIEW OF ORGAN SYSTEMS: CONSTITUTIONAL: No reports of fevers or chills. GI: Denies any blood in stools or constipation. PHYSICAL EXAM: VITAL SIGNS: Stable GENERAL: Well-developed and pleasant in no acute distress. HEENT: No scleral icterus. Extraocular movements grossly intact. Moist buccal mucosa. NECK: Supple without lymphadenopathy. CHEST: Unlabored respirations. Equal bilateral excursions. CARDIOVASCULAR: Regular rate and rhythm. Distal 2+ pulses. ABDOMEN: Soft, nondistended. MUSCULOSKELETAL: No clubbing, cyanosis, or edema. ASSESSMENT: 1. Esophageal stricture PLAN: 1. Recommend proceeding with an upper endoscopy with rigid dilators. Past Medical History Past Medical History: Cancer, Chest Pain / Angina, Deep Vein Thrombosis (DVT), GERD/Reflux, Hyperlipidemia, Pneumonia Additional Past Medical History / Comment(s): L lower leg DVT, c-diff (2009)., blood clot behind R eye, basal skin cancer, pneumonia with SIRS, L foot plantar fascitis, chronic back pain, hx of blood in stool., urine flow issues at times, past hiatal hernia, diff swallowing starting July 2020, gas issues and constipation, Hx of COVID (Jun 2019) History of Any Multi-Drug Resistant Organisms: None Reported Date of last positivie culture/infection: 2009 MDRO Source:: stool Past Surgical History: Adenoidectomy, Bowel Resection, Cholecystectomy, Hernia Repair, Tonsillectomy Additional Past Surgical History / Comment(s): Exploratory lap with lysis of adhesions, surgery to repair hernia and removal of scar tissue and bowel obtruction 02/2020, yamileth fundiplication, EGD, colonoscopies, T&A twice, skin cancer removals. Past Anesthesia/Blood Transfusion Reactions: Previous Problems w/ Anesthesia, Family History of Problems w/ Anesthesia Additional Past Anesthesia/Blood Transfusion Reaction / Comment(s): one time experienced unable to urinate after anesthesia and had catheter .,. step brother quit breathing during anesthesia Past Psychological History: No Psychological Hx Reported Additional Psychological History / Comment(s): . Smoking Status: Never smoker Past Alcohol Use History: None Reported Additional Past Alcohol Use History / Comment(s): . Past Drug Use History: Marijuana Additional Drug Use History / Comment(s): OCCASIONAL MARIJUANA - Past Family History Brother(s) Family Medical History: Cancer Mother Family Medical History: Cancer, COPD Additional Family Medical History / Comment(s): COLON CANCER. Father Family Medical History: Cancer Additional Family Medical History / Comment(s): COLON CA LIVER, prostate Medications and Allergies Home Medications Medication Instructions Recorded Confirmed Type Aspirin [Adult Low Dose Aspirin EC] 162 mg PO DAILY 08/01/20 11/20/20 History Simvastatin [Zocor] 20 mg PO DAILY 08/01/20 11/20/20 History Tamsulosin HCl [Flomax] 0.4 mg PO DAILY 08/01/20 11/20/20 History Ascorbic Acid [Vitamin C] 2,000 mg PO DAILY 10/18/20 11/20/20 History Cholecalciferol [Vitamin D3 (25 10,000 units PO DAILY 10/18/20 11/20/20 History Mcg = 1000 Iu)] Docusate [Colace] 100 mg PO DAILY 10/18/20 11/20/20 History Multivitamins, Thera [Multivitamin 1 tab PO DAILY 10/18/20 11/20/20 History (formulary)] Simethicone [Gas-X] 125 mg PO AC-TID PRN 11/20/20 11/20/20 History polyethylene glycoL 3350 [Miralax] 17 gm PO DAILY 11/20/20 11/20/20 History Allergies Allergy/AdvReac Type Severity Reaction Status Date / Time morphine Allergy Rash/Hives/Shortness Verified 11/20/20 12:25 of Breath
[~2020-11-22 09:13] MED LIST changes: -ACETAMINOPHEN TAB 500 MG TAB PO PRN; -CHLORHEXIDINE GLUCONATE 15 ML CUP MUCOUS MEM PRN; -DEXAMETHASONE SOD PHOSPHATE 4 MG/ML 1 ML VIAL IV ONE; -GABAPENTIN 300 MG CAP PO PRN; -HEPARIN SODIUM,PORCINE/PF 5,000 UNIT/0.5 ML SYRINGE SQ PRN; +LACTATED RINGERS 1,000 ML IV SCH; +LIDOCAINE 1% (10MG/ML) FOR IV START INTRADERMA PRN; -MIDAZOLAM 2 MG/2 ML VIAL IV PRN; -ONDANSETRON 4 MG/2 ML VIAL IVP ONE; -PANTOPRAZOLE 40 MG/10 ML VIAL IVP PRN; -TAMSULOSIN 0.4 MG CAP.ER.24H PO PRN; -fentaNYL (PF) 50 MCG/ML 2 ML AMP IV PRN
[2020-11-22 10:00] VITALS: TEMP 97.5
[2020-11-22] MEDS ORDERED: PROPOFOL 10 MG/ML 20 ML VIAL IV ONE (10:12)
[2020-11-22] MEDS ORDERED: LIDOCAINE 1% INJ 10MG/ML (20 ML MDV) ONE (10:12)
--- NOTE | 2020-11-22 10:37 | P.PCN ---
Date of Procedure: 11/22/20 Description of Procedure: PREOPERATIVE DIAGNOSIS: Dysphagia. Gastroesophageal reflux disease Ineffective esophageal motility POSTOPERATIVE DIAGNOSIS: Dysphagia. Gastroesophageal reflux disease Ineffective esophageal motility Upper esophageal stenosis OPERATION: Esophagogastroduodenoscopy with rigid dilator over the guidewire 60 Fr. SURGEON: Trinh Lynn MD ANESTHESIA: MAC. INDICATIONS: The patient is a 65-year-old male who presents with a history of dysphagia, long-standing. Benefits and risks of the procedure were described. Informed consent was obtained. DESCRIPTION: The patient was brought into the endoscopy suite and laid in the left lateral decubitus position. After a timeout was confirmed, the procedure was initiated. An Olympus gastroscope was passed and the stomach was entered. Mild gastritis was identified. The scope was advanced to the duodenum which was unremarkable. Retroflexion the scope confirmed a Hill grade 1 lower esophageal valve. Next using an Libyan rigid dilator, a guidewire was placed through the pediatric gastroscope. Next the scope was withdrawn. A 60-[place] Citizen rigid Libyan dilator was passed carefully along the posterior oropharynx to 50 cm and left in place for 2-3 minutes stretch. The dilator was withdrawn including the guidewire. The scope was reentered along the posterior oropharynx with no findings of full-thickness tear of the upper esophageal sphincter. Next, inflammation of the antrum was identified with cold forceps biopsies obtained. No full-thickness injury was encountered. The GI tract was desufflated. The patient tolerated the procedure well. FINDINGS: Squamocolumnar junction unremarkable at 40 cm. Upper esophageal stricture without ulceration Libyan rigid dilator 60-[place] Citizen completed. No recurrent hiatus hernia Hill grade 1 lower esophageal valve. LA grade A esophagitis. RECOMMENDATIONS: Upper endoscopy as needed Start omeprazole 20 mg daily Plan - Discharge Summary New Discharge Prescriptions: New Omeprazole 20 mg PO DAILY #14 tablet. Continue Aspirin [Adult Low Dose Aspirin EC] 162 mg PO DAILY Cholecalciferol [Vitamin D3 (25 Mcg = 1000 Iu)] 10,000 units PO DAILY Simvastatin [Zocor] 20 mg PO DAILY Tamsulosin HCl [Flomax] 0.4 mg PO DAILY Ascorbic Acid [Vitamin C] 2,000 mg PO DAILY Multivitamins, Thera [Multivitamin (formulary)] 1 tab PO DAILY Docusate [Colace] 100 mg PO DAILY polyethylene glycoL 3350 [Miralax] 17 gm PO DAILY Simethicone [Gas-X] 125 mg PO AC-TID PRN PRN Reason: gas Discharge Medication List Aspirin [Adult Low Dose Aspirin EC] 162 mg PO DAILY 08/01/20 [History] Simvastatin [Zocor] 20 mg PO DAILY 08/01/20 [History] Tamsulosin HCl [Flomax] 0.4 mg PO DAILY 08/01/20 [History] Ascorbic Acid [Vitamin C] 2,000 mg PO DAILY 10/18/20 [History] Cholecalciferol [Vitamin D3 (25 Mcg = 1000 Iu)] 10,000 units PO DAILY 10/18/20 [History] Docusate [Colace] 100 mg PO DAILY 10/18/20 [History] Multivitamins, Thera [Multivitamin (formulary)] 1 tab PO DAILY 10/18/20 [History] Simethicone [Gas-X] 125 mg PO AC-TID PRN 11/20/20 [History] polyethylene glycoL 3350 [Miralax] 17 gm PO DAILY 11/20/20 [History] Omeprazole 20 mg PO DAILY #14 tablet. 11/22/20 [Rx] Follow up Appointment(s)/Referral(s): Trinh Lynn MD [STAFF PHYSICIAN] - 11/28/20 Patient Instructions/Handouts: Esophageal Dilation (DC) Activity/Diet/Wound Care/Special Instructions: Diet as tolerated Discharge Disposition: HOME SELF-CARE
[2020-11-22 10:50] VITALS: BP 125/80; RESP 16
== END 2020-11-22 11:09 | disposition home or self-care (01) ==
LOC: ORWHC2ENDO 09:13
PROVIDERS: ATTEND Surgery Plastic and Reconstructive Surgery
DX: K22.2 Esophageal obstruction (principal); K29.70 Gastritis, unspecified, without bleeding; K21.00 Gastro-esophageal reflux disease with esophagitis, without bleeding; K44.9 Diaphragmatic hernia without obstruction or gangrene; Z86.718 Personal history of other venous thrombosis and embolism; E78.5 Hyperlipidemia, unspecified; Z87.01 Personal history of pneumonia (recurrent); Z86.19 Personal history of other infectious and parasitic diseases; M72.2 Plantar fascial fibromatosis; G89.29 Other chronic pain; M54.9 Dorsalgia, unspecified; Z86.16 Personal history of COVID-19; Z90.89 Acquired absence of other organs; Z90.49 Acquired absence of other specified parts of digestive tract; Z98.890 Other specified postprocedural states; Z85.828 Personal history of other malignant neoplasm of skin; Z80.9 Family history of malignant neoplasm, unspecified; Z80.0 Family history of malignant neoplasm of digestive organs; Z82.5 Family history of asthma and other chronic lower respiratory diseases; Z79.82 Long term (current) use of aspirin; Z79.899 Other long term (current) drug therapy; Z88.5 Allergy status to narcotic agent
CPT/HCPCS: 43248; J2001; J2704; 43249

== ENCOUNTER 2021-10-28 13:39 | Emergency (ER) | payer OTHER, MEDICARE ==
[2021-10-28] MEDS ORDERED: IBUPROFEN 600 MG TAB PO STA (14:26)
--- NOTE | 2021-10-28 15:46 | US ---
EXAMINATION TYPE: US venous doppler duplex LE LT DATE OF EXAM: 10/28/2021 3:15 PM COMPARISON: NONE CLINICAL HISTORY: LLE swelling. Left calf swelling and pain x 1 week SIDE PERFORMED: Left TECHNIQUE: The lower extremity deep venous system is examined utilizing real time linear array sonog martinez with graded compression, doppler sonography and color-flow sonography. VESSELS IMAGED: Common Femoral Vein Deep Femoral Vein Greater Saphenous Vein * Femoral Vein Popliteal Vein Small Saphenous Vein * Proximal Calf Veins (* superficial vessels) Left Leg: Negative for DVT IMPRESSION: No evidence of deep vein thrombosis in the left leg.
--- NOTE | 2021-10-28 16:02 | XR ---
EXAMINATION TYPE: XR ankle complete LT DATE OF EXAM: 10/28/2021 COMPARISON: NONE HISTORY: Ankle pain TECHNIQUE: 3 views FINDINGS: Ankle mortise is anatomic. I see no fracture nor dislocation. There is plantar and Achilles calcaneal spurring. IMPRESSION: Calcaneal spurring. No fracture seen.
--- NOTE | 2021-10-28 16:13 | ED ---
General Adult HPI - General Chief complaint: Extremity Problem,Nontraumatic Stated complaint: lt leg pain, poss blood clot Time Seen by Provider: 10/28/21 14:11 Source: patient, RN notes reviewed, old records reviewed Mode of arrival: ambulatory Limitations: no limitations - History of Present Illness Initial comments: Patient is a 66-year-old male with past medical history remarkable for prior DVT no longer on anticoagulation, intra-abdominal surgery last month, GERD, angina who presents emergency Department complaining of left ankle pain as well as left lower extremity swelling. States it began over the last few days. Slightly worse today. Some cramping in the medial aspect of the left ankle in the posterior aspect. Denies injury. Denies fall. States this is similar to when he had a DVT previously wanted to be evaluated. Denies any sensory deficits. Denies any weakness.Patient denies any shortness of breath, difficulty in breathing. No history of PE. No recent long distance travel. - Related Data Home Medications Medication Instructions Recorded Confirmed Aspirin [Adult Low Dose Aspirin EC] 162 mg PO DAILY 08/01/20 10/28/21 Simvastatin [Zocor] 20 mg PO DAILY 08/01/20 10/28/21 Tamsulosin HCl [Flomax] 0.4 mg PO DAILY 08/01/20 10/28/21 Ascorbic Acid [Vitamin C] 6,000 mg PO DAILY 10/18/20 10/28/21 Docusate [Colace] 100 mg PO BID 10/18/20 10/28/21 Multivitamins, Thera [Multivitamin 1 tab PO DAILY 10/18/20 10/28/21 (formulary)] polyethylene glycoL 3350 [Miralax] 17 gm PO DAILY 11/20/20 10/28/21 Cholecalciferol [Vitamin D3 (125 250 mcg PO DAILY 08/07/21 10/28/21 Mcg = 5000 Iu)] Fish Oil/Dha/Epa [Fish Oil 1,200 1 cap PO BID 08/07/21 10/28/21 mg Fish Oil] Lion José Supplement 1200 Mg 1,200 mg PO BID 08/07/21 10/28/21 Simethicone [Gas-X] 125 mg PO AC-TID PRN 10/28/21 10/28/21 Previous Rx's Medication Instructions Recorded Acetaminophen Tab [Tylenol Tab] 1,000 mg PO Q6HR PRN #30 tablet 09/06/21 Ibuprofen [Motrin] 600 mg PO Q8HR PRN #30 tab 09/06/21 Allergies Allergy/AdvReac Type Severity Reaction Status Date / Time morphine Allergy Rash/Hives/Shortness Verified 10/28/21 14:08 of Breath Review of Systems ROS Statement: Those systems with pertinent positive or pertinent negative responses have been documented in the HPI. Review of Systems: CONST: Denies fever EYES: Denies blurry vision ENT: Denies nasal congestion C/V: Denies Chest pain RESP: Denies shortness of breath GI: Denies abdominal pain : Denies dysuria SKIN: Denies rash. MSK: Endorses joint pain NEURO: Denies headache ROS Other: All systems not noted in ROS Statement are negative. Past Medical History Past Medical History: Cancer, Chest Pain / Angina, Deep Vein Thrombosis (DVT), GERD/Reflux, Hyperlipidemia, Pneumonia Additional Past Medical History / Comment(s): L lower leg DVT, c-diff (2009)., blood clot behind R eye, basal skin cancer, pneumonia with SIRS, L foot plantar fascitis, chronic back pain, hx of blood in stool., frequent night time urination., past hiatal hernia, Hx of sm bowel obstructions., gas issues and constipation, Hx of COVID (Jun 2019)., states told he has thickening of heart valve. History of Any Multi-Drug Resistant Organisms: None Reported Date of last positivie culture/infection: 2009 MDRO Source:: stool Past Surgical History: Adenoidectomy, Bowel Resection, Cholecystectomy, Hernia Repair, Tonsillectomy Additional Past Surgical History / Comment(s): lysis of adhesions, & repair hiatal hernia and bowel obstruction, yamileth fundiplication, EGD, colonoscopies, T&A x2 at 1yrs & 12 yrs old, skin cancer removals., EGD with dilation. Past Anesthesia/Blood Transfusion Reactions: No Reported Reaction, Family History of Problems w/ Anesthesia Additional Past Anesthesia/Blood Transfusion Reaction / Comment(s): Half brother quit breathing during anesthesia. pt catheterized after lengthy surgery for urine retention Past Psychological History: No Psychological Hx Reported Smoking Status: Never smoker Past Alcohol Use History: None Reported Past Drug Use History: Marijuana - Past Family History Brother(s) Family Medical History: Cancer Mother Family Medical History: Cancer, COPD Additional Family Medical History / Comment(s): COLON CANCER. Father Family Medical History: Cancer Additional Family Medical History / Comment(s): COLON CA LIVER, prostate General Exam - General Exam Comments Initial Comments: General: Appears in no acute distress. HEAD: Normal with no signs of head trauma. EYES: EOMI ENT: Hearing grossly intact, normal oropharynx. RESPIRATORY: Clear breath sounds bilaterally. No wheezes, rales, or rhonchi. No hypoxia. No increased work of breathing. C/V: Regular rate and rhythm. S1 and S2 auscultated, no edema, peripheral pulses 2+ and intact throughout ABD: Abdomen is nondistended. EXT: Slightly reduced range of motion of the left ankle. Tenderness to palpation over the posterior aspect of the left ankle as well as medial malleolus. Mild amount of swelling as well. Mild calf swelling on the left as well. SKIN: No rashes or lesions observed on exposed skin. NEURO: Alert and oriented 4. No focal deficits. Limitations: no limitations Course Vital Signs 10/28/21 14:06 Temperature 97.6 F Pulse Rate 77 Respiratory 16 Rate Blood Pressure 120/73 O2 Sat by Pulse 96 Oximetry Medical Decision Making - Medical Decision Making Abdomen the patient's presentation and physical exam, cannot rule out DVT. The patient this time but my concern is low. Patient's concern is high. We will obtain an ultrasound of the left lower extremity in addition to x-ray. He was in agreement this plan. He'll receive ibuprofen for pain control. I do not believe that further laboratory studies or imaging are required at this time. X-ray showed no acute process. Ultrasound showed no signs of DVT. I attempted the patient. Recommended conservative management with icing, elevating, and [id number] analgesics. Will follow up with PCP this week. He was in agreement this plan. I instructed the patient to follow up with their PCP in the next 3 days. I explained that the patient should return to the emergency department if they experience any worsening symptoms. Strict return precautions were discussed with the patient. The patient expressed understanding of these instructions. I answered all questions that the patient had. The patient was discharged home in good condition with their prescriptions and follow up information. Disposition Clinical Impression: Left ankle pain Disposition: HOME SELF-CARE Condition: Good Instructions (If sedation given, give patient instructions): Arthralgia (ED) Is patient prescribed a controlled substance at d/c from ED?: No Referrals: Lurdes Swanson MD [Primary Care Provider] - 1-2 days Time of Disposition: 16:05
[2021-10-28 16:32] VITALS: BP 128/76; PULSE 65; RESP 18; TEMP 98
== END 2021-10-28 16:34 | disposition home or self-care (01) ==
LOC: EC 13:39
DX: M25.572 Pain in left ankle and joints of left foot (principal); K21.9 Gastro-esophageal reflux disease without esophagitis; E78.5 Hyperlipidemia, unspecified; Z79.83 Long term (current) use of bisphosphonates; Z88.5 Allergy status to narcotic agent
CPT/HCPCS: 99283

== ENCOUNTER 2023-08-03 13:49 | Inpatient (IN) | payer MEDICARE ==
--- NOTE | 2023-08-03 14:04 | ED ---
General Adult HPI - General Chief complaint: Nausea/Vomiting/Diarrhea Stated complaint: GI Bleed Time Seen by Provider: 08/03/23 13:53 Source: patient, EMS, RN notes reviewed, old records reviewed Mode of arrival: EMS - History of Present Illness Initial comments: 68-year-old male presenting for evaluation of fever, diarrhea. Patient was brought in with several episodes of diarrhea which were dark. Patient denies anticoagulation, denies upper abdominal pain. Denies any abdominal pain. He does report he had a cough and some nasal congestion. - Related Data Home Medications Medication Instructions Recorded Confirmed Aspirin [Adult Low Dose Aspirin EC] 162 mg PO DAILY 08/01/20 08/03/23 Tamsulosin HCl [Flomax] 0.4 mg PO DAILY 08/01/20 08/03/23 Ascorbic Acid [Vitamin C] 6,000 mg PO DAILY 10/18/20 08/03/23 Docusate [Colace] 100 mg PO BID 10/18/20 08/03/23 Multivitamins, Thera [Multivitamin 1 tab PO DAILY 10/18/20 08/03/23 (formulary)] polyethylene glycoL 3350 [Miralax] 17 gm PO DAILY 11/20/20 08/03/23 Cholecalciferol [Vitamin D3 (125 250 mcg PO DAILY 08/07/21 08/03/23 Mcg = 5000 Iu)] Fish Oil/Dha/Epa [Fish Oil 1,200 1 cap PO BID 08/07/21 08/03/23 mg Fish Oil] Lion José Supplement 1200 Mg 1,200 mg PO BID 08/07/21 08/03/23 Simethicone [Gas-X] 125 mg PO AC-TID PRN 10/28/21 08/03/23 Ibuprofen [Motrin Ib] 600 mg PO Q8H PRN 08/03/23 08/03/23 Rosuvastatin [Crestor] 20 mg PO DAILY 08/03/23 08/03/23 Previous Rx's Medication Instructions Recorded Acetaminophen Tab [Tylenol Tab] 1,000 mg PO Q6HR PRN #30 tablet 09/06/21 Allergies Allergy/AdvReac Type Severity Reaction Status Date / Time morphine Allergy Rash/Hives/Shortness Verified 08/03/23 13:57 of Breath Review of Systems ROS Statement: Those systems with pertinent positive or pertinent negative responses have been documented in the HPI. ROS Other: All systems not noted in ROS Statement are negative. Past Medical History Past Medical History: Cancer, Chest Pain / Angina, Deep Vein Thrombosis (DVT), GERD/Reflux, Hyperlipidemia, Pneumonia Additional Past Medical History / Comment(s): L lower leg DVT, c-diff (2009)., blood clot behind R eye, basal skin cancer, pneumonia with SIRS, L foot plantar fascitis, chronic back pain, hx of blood in stool., frequent night time urination., past hiatal hernia, Hx of sm bowel obstructions., gas issues and constipation, Hx of COVID (Jun 2019)., states told he has thickening of heart valve. History of Any Multi-Drug Resistant Organisms: None Reported Date of last positivie culture/infection: 2009 MDRO Source:: stool Past Surgical History: Adenoidectomy, Bowel Resection, Cholecystectomy, Hernia Repair, Tonsillectomy Additional Past Surgical History / Comment(s): lysis of adhesions, & repair hiatal hernia and bowel obstruction, yamileth fundiplication, EGD, colonoscopies, T&A x2 at 1yrs & 12 yrs old, skin cancer removals., EGD with dilation. Past Anesthesia/Blood Transfusion Reactions: No Reported Reaction, Family History of Problems w/ Anesthesia Additional Past Anesthesia/Blood Transfusion Reaction / Comment(s): Half brother quit breathing during anesthesia. pt catheterized after lengthy surgery for urine retention Past Psychological History: No Psychological Hx Reported Smoking Status: Never smoker Past Alcohol Use History: None Reported Past Drug Use History: Marijuana - Past Family History Brother(s) Family Medical History: Cancer Mother Family Medical History: Cancer, COPD Additional Family Medical History / Comment(s): COLON CANCER. Father Family Medical History: Cancer Additional Family Medical History / Comment(s): COLON CA LIVER, prostate General Exam General appearance: alert, in no apparent distress Head exam: Present: atraumatic, normocephalic Eye exam: Present: normal appearance, PERRL ENT exam: Present: normal exam Neck exam: Present: normal inspection. Absent: tenderness, meningismus Respiratory exam: Present: decreased breath sounds. Absent: respiratory distress Cardiovascular Exam: Present: normal rhythm, tachycardia GI/Abdominal exam: Present: soft. Absent: distended, tenderness, guarding, rebound Neurological exam: Present: alert, oriented X3, CN II-XII intact. Absent: motor sensory deficit Psychiatric exam: Present: normal affect, normal mood Skin exam: Present: warm, dry, intact. Absent: cyanosis, diaphoretic Course Vital Signs 08/03/23 08/03/23 08/03/23 13:52 15:44 17:04 Temperature 101.6 F H 101.3 F H Pulse Rate 114 H 97 Respiratory 18 18 Rate Blood Pressure 136/74 137/82 O2 Sat by Pulse 92 L 93 L Oximetry 08/03/23 08/03/23 18:05 19:41 Temperature 100.8 F H 103.7 F H Pulse Rate 114 H Respiratory 20 Rate Blood Pressure 141/79 O2 Sat by Pulse 92 L Oximetry Medical Decision Making - Medical Decision Making Was pt. sent in by a medical professional or institution (, PA, AGING ROOM OPERATOR, urgent care, hospital, or intermediate...) When possible be specific @ -No Did you speak to anyone other than the patient for history (EMS, parent, family, police, friend...)? What history was obtained from this source @ -No Did you review nursing and triage notes (agree or disagree)? Why? @ -I reviewed and agree with nursing and triage notes Were old charts reviewed (outside hosp., previous admission, EMS record, old EKG, old radiological studies, urgent care reports/EKG's, intermediate records)? Report findings @ -No old charts were reviewed Differential Diagnosis (chest pain, altered mental status, abdominal pain women, abdominal pain men, vaginal bleeding, weakness, fever, dyspnea, syncope, headache, dizziness, GI bleed, back pain, seizure, CVA, palpatations, mental health, musculoskeletal)? @ -Differential Fever: Pneumonia, viral URI, endocarditis, myocarditis, pericarditis, otitis, sinusitis, peritonsillar Abscess, retropharyngeal Abscess, epiglottitis, peritonitis, appendicitis, Betty cystitis, diverticulitis, hepatitis, colitis, UTI, PID, TOA, pyelonephritis, prostatitis, epididymitis, meningitis, encephalitis, pulmonary embolism, CVA, thyroid storm, pancreatitis, adrenal crisis, cavernous sinus thrombosis, this is not meant to be an all-inclusive list. EKG interpreted by me (3pts min.). @ -As above X-rays interpreted by me (1pt min.). @ -Chest x-ray negative for focal pneumonia, shows cardiomegaly possible CHF CT interpreted by me (1pt min.). @ -CT showing dilated small bowel loops, concerning for partial small bowel obstruction and enterocolitis. No abscess. U/S interpreted by me (1pt. min.). @ -None done What testing was considered but not performed or refused? (CT, X-rays, U/S, labs)? Why? @ -None What meds were considered but not given or refused? Why? @ -None Did you discuss the management of the patient with other professionals (professionals i.e. DrBrandy, PA, AGING ROOM OPERATOR, lab, RT, psych nurse, older adult social work specialist, cryptography teacher, teacher, forestry technical officer, case fitter)? Give summary @Is discussed with Dr. Hooper, will admit Was smoking cessation discussed for >3mins.? @ -No Was critical care preformed (if so, how long)? @ -No Were there social determinants of health that impacted care today? How? ([place] elessness, low income, unemployed, alcoholism, drug addiction, transportation, low edu. Level, literacy, decrease access to med. care, nursing home, rehab)? @ -No Was there de-escalation of care discussed even if they declined (Discuss DNR or withdrawal of care, Hospice)? DNR status @ -No What co-morbidities impacted this encounter? (DM, HTN, Smoking, COPD, CAD, Cancer, CVA, ARF, Chemo, Hep., AIDS, mental health diagnosis, sleep apnea, morbid obesity)? @ -[Previous abdominal surgery Was patient admitted / discharged? Hospital course, mention meds given and route, prescriptions, significant lab abnormalities, going to OR and other pertinent info. @ -68-year-old male presenting with fever, diarrhea. Initial workup reveals a mild leukocytosis, mild hyperkalemia with slight hemolysis, minimally elevated lactic at 2.1. Urinalysis is negative for infection. Chest x-ray is negative for focal pneumonia. Viral panel is negative. Patient did undergo CT imaging of the abdomen which shows likely small bowel obstruction with enterocolitis. He is covered with Zosyn and admitted for the above. General surgery placed on consult. Undiagnosed new problem with uncertain prognosis? @ -No Drug Therapy requiring intensive monitoring for toxicity (Heparin, Nitro, Insulin, Cardizem)? @ -No Were any procedures done? @ -No Diagnosis/symptom? @ -Small bowel obstruction, fever, enterocolitis Acute, or Chronic, or Acute on Chronic? @Acute Uncomplicated (without systemic symptoms) or Complicated (systemic symptoms)? @Complicated Side effects of treatment? @ -No Exacerbation, Progression, or Severe Exacerbation? @ -No Poses a threat to life or bodily function? How? (Chest pain, USA, PA, pneumonia, PE, COPD, DKA, ARF, appy, cholecystitis, CVA, Diverticulitis, Homicidal, Suicidal, threat to staff... and all critical care pts) @ -[Yes, sepsis, small bowel obstruction - Lab Data Result diagrams: 08/03/23 14:40 08/03/23 14:40 Lab Results 08/03/23 08/03/23 08/03/23 Range/Units 14:12 14:40 14:40 WBC 11.4 H (3.8-10.6) k/uL RBC 5.18 (4.30-5.90) m/uL Hgb 16.4 (13.0-17.5) gm/dL Hct 48.6 (39.0-53.0) % MCV 93.7 (80.0-100.0) fL MCH 31.7 (25.0-35.0) pg MCHC 33.8 (31.0-37.0) g/dL RDW 12.9 (11.5-15.5) % Plt Count 216 (150-450) k/uL MPV 8.7 Neutrophils % 86 % Lymphocytes % 3 % Monocytes % 8 % Eosinophils % 2 % Basophils % 0 % Neutrophils # 9.8 H (1.3-7.7) k/uL Lymphocytes # 0.3 L (1.0-4.8) k/uL Monocytes # 0.9 (0-1.0) k/uL Eosinophils # 0.2 (0-0.7) k/uL Basophils # 0.0 (0-0.2) k/uL PT (10.0-12.5) sec INR (<1.2) APTT (22.0-30.0) sec Sodium 136 L (137-145) mmol/L Potassium 5.8 H (3.5-5.1) mmol/L Chloride 106 (98-107) mmol/L Carbon Dioxide 21 L (22-30) mmol/L Anion Gap 9 mmol/L BUN 25 H (9-20) mg/dL Creatinine 0.61 L (0.66-1.25) mg/dL Est GFR (CKD-EPI)AfAm >90 (>60 ml/min/1.73 sqM) Est GFR (CKD-EPI)NonAf >90 (>60 ml/min/1.73 sqM) Glucose 135 H (74-99) mg/dL Lactic Ac Sepsis Rflx Plasma Lactic Acid [place] (0.7-2.0) mmol/L Calcium 9.1 (8.4-10.2) mg/dL Total Bilirubin 1.2 (0.2-1.3) mg/dL AST 65 H (17-59) U/L ALT 62 H (4-49) U/L Alkaline Phosphatase 54 (38-126) U/L Total Protein 7.6 (6.3-8.2) g/dL Albumin 4.5 (3.5-5.0) g/dL Urine Color Urine Appearance (Clear) Urine pH (5.0-8.0) Ur Specific [place] (1.001-1.035) Urine Protein (Negative) Urine Glucose (UA) (Negative) Urine Ketones (Negative) Urine Blood (Negative) Urine Nitrite (Negative) Urine Bilirubin (Negative) Urine Urobilinogen (<2.0) mg/dL Ur Leukocyte Esterase (Negative) Stool Occult Blood (Negative) Influenza Type A (PCR) (Not Detectd) Influenza Type B (PCR) (Not Detectd) RSV (PCR) (Not Detectd) SARS-CoV-2 (PCR) (Not Detectd) Blood Type O Positive Blood Type Recheck O Pos Bld Type Recheck Status No Antibody Screen NEGATIVE Spec Expiration Date 08/06/2023 - 231108/03/23 08/03/23 08/03/23 Range/Units 14:40 14:40 14:40 WBC (3.8-10.6) k/uL RBC (4.30-5.90) m/uL Hgb (13.0-17.5) gm/dL Hct (39.0-53.0) % MCV (80.0-100.0) fL MCH (25.0-35.0) pg MCHC (31.0-37.0) g/dL RDW (11.5-15.5) % Plt Count (150-450) k/uL MPV Neutrophils % % Lymphocytes % % Monocytes % % Eosinophils % % Basophils % % Neutrophils # (1.3-7.7) k/uL Lymphocytes # (1.0-4.8) k/uL Monocytes # (0-1.0) k/uL Eosinophils # (0-0.7) k/uL Basophils # (0-0.2) k/uL PT 10.0 (10.0-12.5) sec INR 0.9 (<1.2) APTT 25.0 (22.0-30.0) sec Sodium (137-145) mmol/L Potassium (3.5-5.1) mmol/L Chloride (98-107) mmol/L Carbon Dioxide (22-30) mmol/L Anion Gap mmol/L BUN (9-20) mg/dL Creatinine (0.66-1.25) mg/dL Est GFR (CKD-EPI)AfAm (>60 ml/min/1.73 sqM) Est GFR (CKD-EPI)NonAf (>60 ml/min/1.73 sqM) Glucose (74-99) mg/dL Lactic Ac Sepsis Rflx Plasma Lactic Acid [place] 2.1 H* (0.7-2.0) mmol/L Calcium (8.4-10.2) mg/dL Total Bilirubin (0.2-1.3) mg/dL AST (17-59) U/L ALT (4-49) U/L Alkaline Phosphatase (38-126) U/L Total Protein (6.3-8.2) g/dL Albumin (3.5-5.0) g/dL Urine Color Urine Appearance (Clear) Urine pH (5.0-8.0) Ur Specific [place] (1.001-1.035) Urine Protein (Negative) Urine Glucose (UA) (Negative) Urine Ketones (Negative) Urine Blood (Negative) Urine Nitrite (Negative) Urine Bilirubin (Negative) Urine Urobilinogen (<2.0) mg/dL Ur Leukocyte Esterase (Negative) Stool Occult Blood (Negative) Influenza Type A (PCR) Not Detected (Not Detectd) Influenza Type B (PCR) Not Detected (Not Detectd) RSV (PCR) Not Detected (Not Detectd) SARS-CoV-2 (PCR) Not Detected (Not Detectd) Blood Type Blood Type Recheck Bld Type Recheck Status Antibody Screen Spec Expiration Date 08/03/23 08/03/23 08/03/23 Range/Units 14:40 16:24 17:59 WBC (3.8-10.6) k/uL RBC (4.30-5.90) m/uL Hgb (13.0-17.5) gm/dL Hct (39.0-53.0) % MCV (80.0-100.0) fL MCH (25.0-35.0) pg MCHC (31.0-37.0) g/dL RDW (11.5-15.5) % Plt Count (150-450) k/uL MPV Neutrophils % % Lymphocytes % % Monocytes % % Eosinophils % % Basophils % % Neutrophils # (1.3-7.7) k/uL Lymphocytes # (1.0-4.8) k/uL Monocytes # (0-1.0) k/uL Eosinophils # (0-0.7) k/uL Basophils # (0-0.2) k/uL PT (10.0-12.5) sec INR (<1.2) APTT (22.0-30.0) sec Sodium (137-145) mmol/L Potassium (3.5-5.1) mmol/L Chloride (98-107) mmol/L Carbon Dioxide (22-30) mmol/L Anion Gap mmol/L BUN (9-20) mg/dL Creatinine (0.66-1.25) mg/dL Est GFR (CKD-EPI)AfAm (>60 ml/min/1.73 sqM) Est GFR (CKD-EPI)NonAf (>60 ml/min/1.73 sqM) Glucose (74-99) mg/dL Lactic Ac Sepsis Rflx Y Plasma Lactic Acid [place] (0.7-2.0) mmol/L Calcium (8.4-10.2) mg/dL Total Bilirubin (0.2-1.3) mg/dL AST (17-59) U/L ALT (4-49) U/L Alkaline Phosphatase (38-126) U/L Total Protein (6.3-8.2) g/dL Albumin (3.5-5.0) g/dL Urine Color Light Yellow Urine Appearance Clear (Clear) Urine pH 6.0 (5.0-8.0) Ur Specific [place] >1.050 H (1.001-1.035) Urine Protein Trace H (Negative) Urine Glucose (UA) Negative (Negative) Urine Ketones Negative (Negative) Urine Blood Negative (Negative) Urine Nitrite Negative (Negative) Urine Bilirubin Negative (Negative) Urine Urobilinogen <2.0 (<2.0) mg/dL Ur Leukocyte Esterase Negative (Negative) Stool Occult Blood Negative (Negative) Influenza Type A (PCR) (Not Detectd) Influenza Type B (PCR) (Not Detectd) RSV (PCR) (Not Detectd) SARS-CoV-2 (PCR) (Not Detectd) Blood Type Blood Type Recheck Bld Type Recheck Status Antibody Screen Spec Expiration Date Disposition Clinical Impression: Small bowel obstruction, Diarrhea, Colitis Disposition: ADMITTED IP TO THIS [facility] Condition: Stable Is patient prescribed a controlled substance at d/c from ED?: No Referrals: Lurdes Swanson MD [Primary Care Provider] - 1-2 days Time of Disposition: 20:22
[2023-08-03] MEDS: PANTOPRAZOLE 40 MG/10 ML VIAL IVP STA (14:43)
[2023-08-03] MEDS: ACETAMINOPHEN TAB 500 MG TAB PO STA (14:44)
[2023-08-03] MEDS: SODIUM CHLORIDE 0.9% 500 ML 500 ML IV STA (14:47)
[2023-08-03 15:55] LABS: Basophils % (A) 0 %; Eosinophils # (A) 0.2 k/uL (0-0.7); Eosinophils % (A) 2 %; HCT 48.6 % (39.0-53.0); HGB 16.4 gm/dL (13.0-17.5); Lymphocytes # (A) 0.3 k/uL (1.0-4.8); Lymphocytes % (A) 3 %; MCH 31.7 pg (25.0-35.0); MCHC 33.8 g/dL (31.0-37.0); MCV 93.7 fL (80.0-100.0); Mean Platelet Volume 8.7; Monocytes # (A) 0.9 k/uL (0-1.0); Monocytes % (A) 8 %; Neutrophils # (A) 9.8 k/uL (1.3-7.7); Neutrophils % (A) 86 %; Platelet Count 216 k/uL (150-450); RBC 5.18 m/uL (4.30-5.90); RDW 12.9 % (11.5-15.5); WBC 11.4 k/uL (3.8-10.6)
[2023-08-03 15:57] LABS: INR 0.9 (<1.2)
[2023-08-03 16:04] LABS: ALT 62 U/L (4-49); AST 65 U/L (17-59); African American GFR (CKD) >90 (>60 ml/min/1.73 sqM); Albumin 4.5 g/dL (3.5-5.0); Alkaline Phosphatase 54 U/L (38-126); Anion Gap 9 mmol/L; Blood Urea Nitrogen 25 mg/dL (9-20); Calcium 9.1 mg/dL (8.4-10.2); Carbon Dioxide 21 mmol/L (22-30); Chloride 106 mmol/L (98-107); Glucose 135 mg/dL (74-99); Non-African American GFR(CKD) >90 (>60 ml/min/1.73 sqM); Sodium 136 mmol/L (137-145); Total Bilirubin 1.2 mg/dL (0.2-1.3); Total Protein 7.6 g/dL (6.3-8.2)
[2023-08-03 16:25] LABS: Potassium 5.8 mmol/L (3.5-5.1)
--- NOTE | 2023-08-03 16:39 | XR ---
EXAMINATION TYPE: XR chest 2V DATE OF EXAM: 08/03/2023 2:56 PM CLINICAL INDICATION:Male, 68 years old with history of fever; [facility] COMPARISON: None TECHNIQUE: XR chest 2V. Frontal and lateral views of the chest.. FINDINGS: Exam is limited by patient body habitus. Lines/Tubes/Devices: No indwelling lines are seen. Heart/mediastinum: Heart appears mildly to moderately enlarged. Mediastinum appears unremarkable. Pulmonary vascularity: Mild pulmonary vascular congestion Lungs/Pleura: There is no evidence of significant pleural effusion, focal consolidation, or pneumotho rax. Musculoskeletal: No acute osseous abnormality demonstrated in the limits of the exam. Degenerative c hanges of the shoulders and spine. Mild asymmetric dilatation of the right hemidiaphragm. Other findings: None. IMPRESSION: Mild cardiomegaly and mild pulmonary vascular congestion.
[2023-08-03] MEDS: SODIUM CHLORIDE 0.9% 1,000 ML IV SCH (17:03)
[2023-08-03 18:17] LABS: Appearance,Urine Clear (Clear); Bilirubin,Urine Negative (Negative); Blood,Urine Negative (Negative); Color,Urine Light Yellow; Glucose,Urine (UA) Negative (Negative); Ketones,Urine Negative (Negative); Leukocyte Esterase,Urine Negative (Negative); Nitrite,Urine Negative (Negative); Protein,Urine Trace (Negative); Urobilinogen,Urine <2.0 mg/dL (<2.0)
[2023-08-03 18:22] LABS: Specific Gravity,Urine >1.050 (1.001-1.035)
[2023-08-03] MEDS: ONDANSETRON 4 MG/2 ML VIAL IVP STA (19:36)
--- NOTE | 2023-08-03 19:56 | CT ---
EXAMINATION TYPE: CT abdomen pelvis w con CT DLP: 2116.6 mGycm, Automated exposure control for dose reduction was used. DATE OF EXAM: 08/03/2023 5:42 PM COMPARISON: CT 08/07/2021 CLINICAL INDICATION:Male, 68 years old with history of fever/ab pain; TECHNIQUE: Axial CT of the abdomen and pelvis. Sagittal and coronal reformats were created on a [employer] workstation. Contrast used: 100 mL of Isovue-300 IV Oral contrast used: None FINDINGS: LOWER CHEST: Minimal emphysematous changes. Mild linear scarring or atelectasis in the right lung ba se. Heart size is normal. Moderate coronary arterial calcifications. ABDOMEN LIVER: Generally diminished attenuation suggesting steatosis. No focal lesion is seen. GALLBLADDER AND BILE DUCTS: Gallbladder is not seen, probably absent. No abnormal biliary dilatation is suggested. PANCREAS: Mild fatty infiltration, no acute finding SPLEEN: Unremarkable. ADRENAL GLANDS: Unremarkable. KIDNEYS AND URETERS: Kidneys concentrate and excrete contrast symmetrically. There are several hypode nse nodules bilaterally, the largest is about 3.5 cm in the posterior right kidney and is convincingl y a cyst. Some others are too small to characterize but are probably also cysts. No hydronephrosis. PELVIS BLADDER: Unremarkable REPRODUCTIVE: Prostate is enlarged measuring 4.6 cm transverse. ABDOMEN & PELVIS STOMACH AND BOWEL: Postoperative changes at the GE junction. Small hiatal hernia with small amount of fluid in the distal esophagus suggestive of reflux or dysmotility. Stomach is not overly distended. There is an essentially normal duodenal sweep. Continuing distally, there is progressive dilatation of small bowel loops up to 5.3 cm diameter, with intraluminal fluid a nd suggestion of mild generalized wall thickening. No single transition point is identified. There are postoperative changes along the anterior abdominal wall with scarring and a couple tiny fat -containing hernias identified, but no definite bowel containing loops. However some bowel loops appe ar closely opposed to the anterior abdominal wall suggesting the possibility of adhesions. There is a broad-based hernia seen along the anterior abdominal wall on image 59 which may have herniorrhaphy m esh along its base. The adjacent small bowel loop pushes slightly anteriorly against the mesh at this level and the mesh bulges slightly outwards. Small structure right of midline in the subcutaneous abdominal wall tissues image 53 may represent se quela of fat necrosis. Farther distally, the small bowel caliber diminishes to the ileocecal junction. There is fatty infilt ration of the ileocecal junction. Right colon contains fluid and appears mildly distended. Some fluid is seen in the transverse and descending colon with some more formed stool farther distally. There a re several diverticula but no definite evidence of focal inflammation to suggest diverticulitis. The distal sigmoid and rectum then again show fluid-filled distention which is greatest in the rectum (6. 2 cm diameter), of uncertain cause. There is a curvilinear density which appears to likely be some sort of bowel anastomosis or suture li ne along the wall of small bowel in the lower abdomen, correlate with surgical history. PERITONEUM/RETROPERITONEUM: No evidence of pneumoperitoneum or free fluid. VASCULATURE: Mild to moderate atherosclerotic calcifications are present throughout the abdominal aor ta and its branches. No evidence of aortic aneurysm. Portal veins are enhancing. Splenic vein is pa tent. LYMPH NODES: No enlarged lymph nodes by CT criteria. SOFT TISSUE/ABDOMINAL WALL: Unremarkable MUSCULOSKELETAL: No acute osseous abnormalities. Moderate degenerative changes of the spine. IMPRESSION: 1. Multiple fluid-filled, dilated loops of mid small bowel, concerning for obstruction or partial ob struction, without a discrete transition point identified. This may be related to adhesions, possibly at more than one location. 2. Colonic fluid contents, in predominantly the right colon and distal colon, with greatest distenti on at the rectum, of uncertain etiology but superimposed enterocolitis is a consideration. 3. No evidence of bowel wall pneumatosis, free fluid, free air, or abscess. 4. Postsurgical changes along the anterior abdominal wall, as detailed above.
[2023-08-03] MEDS: KETOROLAC 15 MG/ML 1 ML VIAL IVP STA (20:13)
[2023-08-03] MEDS ORDERED: NALOXONE 0.4 MG/ML 1 ML VIAL IV PRN (20:18)
[2023-08-03] MEDS: PIPERACILLIN-TAZOBACTAM 3.375 GM in SODIUM CHLORIDE 0.9% 100 ML IVPB SCH (20:24)
[2023-08-03] MEDS: ACETAMINOPHEN TAB 325 MG TAB PO PRN (21:05)
[2023-08-03] MEDS: HYDROmorphone 0.5 MG/0.5 ML SYRINGE IVP PRN (22:37)
[2023-08-04 04:59] LABS: Glucose,Whole Blood 138 mg/dL (70-110)
[2023-08-04] MEDS: PANTOPRAZOLE 40 MG/10 ML VIAL IV SCH (08:20)
[2023-08-04 11:45] LABS: African American GFR (CKD) >90 (>60 ml/min/1.73 sqM); Anion Gap 10 mmol/L; Blood Urea Nitrogen 35 mg/dL (9-20); Calcium 7.9 mg/dL (8.4-10.2); Carbon Dioxide 21 mmol/L (22-30); Chloride 109 mmol/L (98-107); Glucose 145 mg/dL (74-99); Non-African American GFR(CKD) 83 (>60 ml/min/1.73 sqM); Sodium 140 mmol/L (137-145)
[2023-08-04 11:53] LABS: HCT 45.9 % (39.0-53.0); HGB 15.4 gm/dL (13.0-17.5); MCH 31.7 pg (25.0-35.0); MCHC 33.4 g/dL (31.0-37.0); Mean Platelet Volume 8.3; Platelet Count 191 k/uL (150-450); RBC 4.84 m/uL (4.30-5.90); RDW 13.4 % (11.5-15.5); WBC 4.9 k/uL (3.8-10.6)
[2023-08-04 13:25] LABS: Band Neutrophils % 24 %; Lymphocytes # (M) 0.59 k/uL (1.0-4.8); Metamyelocytes # (M) 0.05 k/uL (0); Metamyelocytes % 1 %; Monocytes # (M) 0.74 k/uL (0-1.0); Myelocytes # (M) 0.05 k/uL (0); Myelocytes % 1 %; Neutrophils % (M) 49 %; Nucleated Red Blood Cells 0 /100 WBC (0-0); Total Cells Counted 200
[2023-08-04 13:28] LABS: RBC Morphology Normal; Toxic Granulation Present
[2023-08-04] MEDS: LEVOFLOXACIN 750MG-D5W PMX 750 MG in DEXTROSE/WATER 1 150ML.BAG IVPB SCH (15:04)
[2023-08-04] MEDS: HEPARIN SODIUM,PORCINE 5,000 UNIT/ML 1 ML VIAL SQ SCH (15:04)
[2023-08-04] MEDS: TAMSULOSIN 0.4 MG CAP.ER.24H PO SCH (15:05)
[2023-08-04] MEDS: PANTOPRAZOLE 40 MG/10 ML VIAL IVP SCH (15:07)
--- NOTE | 2023-08-04 17:24 | P.GSCN ---
History of Present Illness Consult date: 08/04/23 Reason for Consult: small obowel obstruction History of present illness: cyst 68-year-old male who is well-known to myself. Patient has. History of small bowel obstruction and subsequent exploratory laparotomy lysis of adhesions and repair of ventral hernias by Dr. Felton. Patient was admitted with complaints of crampy abdominal pain. 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 And for possible small bowel obstruction. Past Medical History Past Medical History: Cancer, Chest Pain / Angina, Deep Vein Thrombosis (DVT), GERD/Reflux, Hyperlipidemia, Pneumonia Additional Past Medical History / Comment(s): L lower leg DVT, c-diff (2009), blood clot behind R eye, basal skin cancer, pneumonia with SIRS, L foot plantar fascitis, chronic back pain, hx of blood in stool, frequent night time urination, past hiatal hernia, Hx of sm bowel obstructions, gas issues and constipation, Hx of COVID (Jun 2019), states told he has thickening of heart valve History of Any Multi-Drug Resistant Organisms: None Reported Year Discovered:: 2009 MDRO Source:: stool Past Surgical History: Adenoidectomy, Bowel Resection, Cholecystectomy, Hernia Repair, Tonsillectomy Additional Past Surgical History / Comment(s): lysis of adhesions, & repair hiatal hernia and bowel obstruction, yamileth fundiplication, EGD, colonoscopies, T&A x2 at 1yrs & 12 yrs old, skin cancer removals., EGD with dilation. Past Anesthesia/Blood Transfusion Reactions: No Reported Reaction, Family History of Problems w/ Anesthesia Additional Past Anesthesia/Blood Transfusion Reaction / Comm: Half brother quit breathing during anesthesia. pt catheterized after lengthy surgery for urine retention Past Psychological History: No Psychological Hx Reported Smoking Status: Never smoker Past Alcohol Use History: None Reported Past Drug Use History: Marijuana Additional Drug Use History / Comment(s): OCCASIONAL MARIJUANA - Past Family History Brother(s) Family Medical History: Cancer Mother Family Medical History: Cancer, COPD Additional Family Medical History / Comment(s): COLON CANCER. Father Family Medical History: Cancer Additional Family Medical History / Comment(s): COLON CA LIVER, prostate Medications and Allergies Home Medications Medication Instructions Recorded Confirmed Type Aspirin [Adult Low Dose Aspirin EC] 162 mg PO DAILY 08/01/20 08/03/23 History Tamsulosin HCl [Flomax] 0.4 mg PO DAILY 08/01/20 08/03/23 History Ascorbic Acid [Vitamin C] 6,000 mg PO DAILY 10/18/20 08/03/23 History Docusate [Colace] 100 mg PO BID 10/18/20 08/03/23 History Multivitamins, Thera [Multivitamin 1 tab PO DAILY 10/18/20 08/03/23 History (formulary)] polyethylene glycoL 3350 [Miralax] 17 gm PO DAILY 11/20/20 08/03/23 History Cholecalciferol [Vitamin D3 (125 250 mcg PO DAILY 08/07/21 08/03/23 History Mcg = 5000 Iu)] Fish Oil/Dha/Epa [Fish Oil 1,200 1 cap PO BID 08/07/21 08/03/23 History mg Fish Oil] Lion José Supplement 1200 Mg 1,200 mg PO BID 08/07/21 08/03/23 History Acetaminophen Tab [Tylenol Tab] 1,000 mg PO Q6HR PRN #30 tablet 09/06/21 08/03/23 Rx Simethicone [Gas-X] 125 mg PO AC-TID PRN 10/28/21 08/03/23 History Ibuprofen [Motrin Ib] 600 mg PO Q8H PRN 08/03/23 08/03/23 History Rosuvastatin [Crestor] 20 mg PO DAILY 08/03/23 08/03/23 History Allergies Allergy/AdvReac Type Severity Reaction Status Date / Time morphine Allergy Rash/Hives/Shortness Verified 08/03/23 13:57 of Breath Surgical - Exam Vital Signs Temp Pulse Resp BP Pulse Ox 101.6 F H 114 H 18 136/74 92 L 08/03/23 13:52 08/03/23 13:52 08/03/23 13:52 08/03/23 13:52 08/03/23 13:52 - General well developed, well nourished, no distress - Eyes PERRL - ENT normal pinna - Neck no masses - Respiratory normal expansion - Cardiovascular Rhythm: regular - Abdomen mildly tender throughout Abdomen: soft Results - Labs 08/04/23 10:58 08/04/23 10:58 Abnormal Lab Results - Last 24 Hours (Table) 08/03/23 08/03/23 08/04/23 Range/Units 17:59 20:26 04:58 Lymphocytes # (Manual) (1.0-4.8) k/uL Metamyelocytes # (Man) (0) k/uL Myelocytes # (Manual) (0) k/uL Chloride (98-107) mmol/L Carbon Dioxide (22-30) mmol/L BUN (9-20) mg/dL Glucose (74-99) mg/dL POC Glucose (mg/dL) 138 H (70-110) mg/dL Plasma Lactic Acid [place] 2.5 H* (0.7-2.0) mmol/L Calcium (8.4-10.2) mg/dL Ur Specific [place] >1.050 H (1.001-1.035) Urine Protein Trace H (Negative) 08/04/23 08/04/23 Range/Units 10:58 10:58 Lymphocytes # (Manual) 0.59 L (1.0-4.8) k/uL Metamyelocytes # (Man) 0.05 H (0) k/uL Myelocytes # (Manual) 0.05 H (0) k/uL Chloride 109 H (98-107) mmol/L Carbon Dioxide 21 L (22-30) mmol/L BUN 35 H (9-20) mg/dL Glucose 145 H (74-99) mg/dL POC Glucose (mg/dL) (70-110) mg/dL Plasma Lactic Acid [place] (0.7-2.0) mmol/L Calcium 7.9 L (8.4-10.2) mg/dL Ur Specific [place] (1.001-1.035) Urine Protein (Negative) Diabetes panel 08/04/23 Range/Units 10:58 Sodium 140 (137-145) mmol/L Potassium 4.0 (3.5-5.1) mmol/L Chloride 109 H (98-107) mmol/L Carbon Dioxide 21 L (22-30) mmol/L BUN 35 H (9-20) mg/dL Creatinine 0.93 (0.66-1.25) mg/dL Glucose 145 H (74-99) mg/dL Calcium 7.9 L (8.4-10.2) mg/dL Calcium panel 08/04/23 Range/Units 10:58 Calcium 7.9 L (8.4-10.2) mg/dL Pituitary panel 08/04/23 Range/Units 10:58 Sodium 140 (137-145) mmol/L Potassium 4.0 (3.5-5.1) mmol/L Chloride 109 H (98-107) mmol/L Carbon Dioxide 21 L (22-30) mmol/L BUN 35 H (9-20) mg/dL Creatinine 0.93 (0.66-1.25) mg/dL Glucose 145 H (74-99) mg/dL Calcium 7.9 L (8.4-10.2) mg/dL Adrenal panel 08/04/23 Range/Units 10:58 Sodium 140 (137-145) mmol/L Potassium 4.0 (3.5-5.1) mmol/L Chloride 109 H (98-107) mmol/L Carbon Dioxide 21 L (22-30) mmol/L BUN 35 H (9-20) mg/dL Creatinine 0.93 (0.66-1.25) mg/dL Glucose 145 H (74-99) mg/dL Calcium 7.9 L (8.4-10.2) mg/dL - Imaging CT scan - abdomen: report reviewed (multiple dilated loops of small bowel with air-fluid levels.) Assessment and Plan Assessment: 5-year-old male with history of small bowel obstruction. Patient appears to have acute small bowel charge. He will benefit from NG tube decompression. Patient was last operated with by Dr. Felton. I will refer the patient back to Dr. Felton.
[2023-08-04] MEDS: ONDANSETRON 4 MG/2 ML VIAL IVP PRN (20:11)
--- NOTE | 2023-08-04 23:18 | P.CONS ---
History of Present Illness - Reason for Consult Consult date: 08/04/23 Infectious enterocolitis Requesting physician: Oxana Nguyen - Chief Complaint Fever and diarrhea x 1 day - History of Present Illness Patient is a 68-year-old male with a past medical history significant for hyperlipidemia DVT basal cell skin cancer history of small bowel obstruction requiring exploratory laparotomy and lysis of adhesion and repair of ventral h ernia presenting to the hospital for evaluation of fever and multiple episodes of diarrhea patient denies having any blood or mucus in the stool has been complaining of some abdominal distention and discomfort moderate intensity without radiation and did have some nausea with the symptoms the patient has been evaluated on presentation to the hospital patient was febrile with a temperature of 101.6 F and subsequently spiked a fever of 103 F, patient was tachycardic but not hypotensive or hypoxic patient did have a white count of 11.4 with a left shift BUN/creatinine has been normal liver enzymes mildly elevated urine has been negative patient did have stool for C. difficile negative influenza RSV COVID testing was negative patient did have abdominal pelvis CT multiple fluid-filled dilated loops of mid small bowel concerning for obstruction or partial obstruction colonic fluid contents within greatest distention of the rectum no evidence of pneumatosis free air or abscess patient was started on Zosyn infectious was consulted for further management of antibiotic therapy Review of Systems Positive point and negatives has been mentioned in the HPI, complete review of systems was performed and all other systems are negative Past Medical History Past Medical History: Cancer, Chest Pain / Angina, Deep Vein Thrombosis (DVT), GERD/Reflux, Hyperlipidemia, Pneumonia Additional Past Medical History / Comment(s): L lower leg DVT, c-diff (2009), blood clot behind R eye, basal skin cancer, pneumonia with SIRS, L foot plantar fascitis, chronic back pain, hx of blood in stool, frequent night time urination, past hiatal hernia, Hx of sm bowel obstructions, gas issues and constipation, Hx of COVID (Jun 2019), 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 Past Anesthesia/Blood Transfusion Reactions: No Reported Reaction, Family History of Problems w/ Anesthesia Additional Past Anesthesia/Blood Transfusion Reaction / Comm: Half brother quit breathing during anesthesia. pt catheterized after lengthy surgery for urine retention Past Psychological History: No Psychological Hx Reported Smoking Status: Never smoker Past Alcohol Use History: None Reported Past Drug Use History: Marijuana Additional Drug Use History / Comment(s): OCCASIONAL MARIJUANA - Past Family History Brother(s) Family Medical History: Cancer Mother Family Medical History: Cancer, COPD Additional Family Medical History / Comment(s): COLON CANCER. Father Family Medical History: Cancer Additional Family Medical History / Comment(s): COLON CA LIVER, prostate Medications and Allergies Home Medications Medication Instructions Recorded Confirmed Type Aspirin [Adult Low Dose Aspirin EC] 162 mg PO DAILY 08/01/20 08/03/23 History Tamsulosin HCl [Flomax] 0.4 mg PO DAILY 08/01/20 08/03/23 History Ascorbic Acid [Vitamin C] 6,000 mg PO DAILY 10/18/20 08/03/23 History Docusate [Colace] 100 mg PO BID 10/18/20 08/03/23 History Multivitamins, Thera [Multivitamin 1 tab PO DAILY 10/18/20 08/03/23 History (formulary)] polyethylene glycoL 3350 [Miralax] 17 gm PO DAILY 11/20/20 08/03/23 History Cholecalciferol [Vitamin D3 (125 250 mcg PO DAILY 08/07/21 08/03/23 History Mcg = 5000 Iu)] Fish Oil/Dha/Epa [Fish Oil 1,200 1 cap PO BID 08/07/21 08/03/23 History mg Fish Oil] Lion José Supplement 1200 Mg 1,200 mg PO BID 08/07/21 08/03/23 History Acetaminophen Tab [Tylenol] 1,000 mg PO Q6HR PRN #30 tablet 09/06/21 08/03/23 Rx Simethicone [Gas-X] 125 mg PO AC-TID PRN 10/28/21 08/03/23 History Ibuprofen [Motrin Ib] 600 mg PO Q8H PRN 08/03/23 08/03/23 History Rosuvastatin [Crestor] 20 mg PO DAILY 08/03/23 08/03/23 History Metoprolol Tartrate [Lopressor] 25 mg PO BID #60 tab 08/07/23 Rx Pantoprazole [Protonix] 40 mg PO DAILY #30 tab 08/07/23 Rx cefUROXime axetiL [Ceftin] 500 mg PO BID 7 Days #14 tab 08/07/23 Rx metroNIDAZOLE [Flagyl] 500 mg PO TID 7 Days #21 tab 08/07/23 Rx Allergies Allergy/AdvReac Type Severity Reaction Status Date / Time morphine Allergy Rash/Hives/Shortness Verified 08/03/23 13:57 of Breath Physical Exam Vitals: Vital Signs Temp Pulse Pulse Resp BP BP Pulse Ox 08/04/23 11:35 97.9 F 89 18 130/74 93 L 08/04/23 08:15 99.4 F 88 17 130/81 94 L 08/04/23 04:00 98.9 F 101 H 18 115/78 92 L 08/03/23 22:32 98.7 F 100 16 104/65 94 L 08/03/23 21:58 99.4 F 110 H 16 110/54 94 L 08/03/23 21:05 102.0 F H 08/03/23 19:41 103.7 F H 114 H 20 141/79 92 L 08/03/23 18:05 100.8 F H 08/03/23 17:04 97 18 137/82 93 L Intake and Output 08/04/23 08/04/23 08/04/23 06:59 14:59 22:59 Intake Total 10 Balance 10 Intake: IV 10 Invasive Line 1 10 Other: Voiding Method Toilet Toilet # Voids 1 # Bowel Movements 1 GENERAL DESCRIPTION: Elderly male lying in bed, no distress. No tachypnea or accessory muscle of respiration use. HEENT: Shows Pallor , no scleral icterus. Oral mucous membrane is dry. NECK: Trachea central, no thyromegaly. LUNGS: Unlabored breathing. Clear to auscultation anteriorly. No wheeze or crackle. HEART: S1, S2, regular rate and rhythm. No loud murmur ABDOMEN: Soft, mild distention but no significant tenderness EXTREMITIES: No edema of feet. SKIN: No rash, NEUROLOGICAL: The patient is awake, alert, oriented x3, mood and affect normal. Results CBC & Chem 7: 08/05/23 07:00 08/05/23 07:00 Labs: Abnormal Lab Results - Last 24 Hours (Table) 08/03/23 08/03/23 08/03/23 Range/Units 14:40 14:40 17:59 Lymphocytes # (Manual) (1.0-4.8) k/uL Metamyelocytes # (Man) (0) k/uL Myelocytes # (Manual) (0) k/uL Sodium 136 L (137-145) mmol/L Potassium 5.8 H (3.5-5.1) mmol/L Chloride (98-107) mmol/L Carbon Dioxide 21 L (22-30) mmol/L BUN 25 H (9-20) mg/dL Creatinine 0.61 L (0.66-1.25) mg/dL Glucose 135 H (74-99) mg/dL POC Glucose (mg/dL) (70-110) mg/dL Plasma Lactic Acid [place] 2.1 H* (0.7-2.0) mmol/L Calcium (8.4-10.2) mg/dL AST 65 H (17-59) U/L ALT 62 H (4-49) U/L Ur Specific [place] >1.050 H (1.001-1.035) Urine Protein Trace H (Negative) 08/03/23 08/04/23 08/04/23 Range/Units 20:26 04:58 10:58 Lymphocytes # (Manual) 0.59 L (1.0-4.8) k/uL Metamyelocytes # (Man) 0.05 H (0) k/uL Myelocytes # (Manual) 0.05 H (0) k/uL Sodium (137-145) mmol/L Potassium (3.5-5.1) mmol/L Chloride (98-107) mmol/L Carbon Dioxide (22-30) mmol/L BUN (9-20) mg/dL Creatinine (0.66-1.25) mg/dL Glucose (74-99) mg/dL POC Glucose (mg/dL) 138 H (70-110) mg/dL Plasma Lactic Acid [place] 2.5 H* (0.7-2.0) mmol/L Calcium (8.4-10.2) mg/dL AST (17-59) U/L ALT (4-49) U/L Ur Specific [place] (1.001-1.035) Urine Protein (Negative) 08/04/23 Range/Units 10:58 Lymphocytes # (Manual) (1.0-4.8) k/uL Metamyelocytes # (Man) (0) k/uL Myelocytes # (Manual) (0) k/uL Sodium (137-145) mmol/L Potassium (3.5-5.1) mmol/L Chloride 109 H (98-107) mmol/L Carbon Dioxide 21 L (22-30) mmol/L BUN 35 H (9-20) mg/dL Creatinine (0.66-1.25) mg/dL Glucose 145 H (74-99) mg/dL POC Glucose (mg/dL) (70-110) mg/dL Plasma Lactic Acid [place] (0.7-2.0) mmol/L Calcium 7.9 L (8.4-10.2) mg/dL AST (17-59) U/L ALT (4-49) U/L Ur Specific [place] (1.001-1.035) Urine Protein (Negative) Assessment and Plan (1) Sepsis Status: Acute Code(s): A41.9 - SEPSIS, UNSPECIFIED ORGANISM SNOMED Code(s): 36799285 Plan: 1patient presented hospital with sepsis in this patient who did have fever tachycardia elevated white count was also likely abdominal with predominantly abdominal symptoms did have diarrhea but no antibiotic exposure stool for C. difficile is negative CT abdominal pelvis suggestive of bowel obstruction and will need to cover for the enteric gram-negative to be the likely pathogen 2-we will obtain stool culture 3-patient to continue Zosyn 3.375 g every 8 hours and await surgical evaluation We will follow on clinical condition and cultures to further adjust medication if needed Thank you for this consultation we will follow the patient along with you Dictation was produced using [employer] dictation software. please excuse any grammatical, word or spelling errors. Time with Patient: Greater than 30
[2023-08-04] MEDS: DILTIAZEM DRIP BOLUS FROM BAG 1 MG SOLN IV ONE (23:30)
[2023-08-04] MEDS: DILTIAZEM 125 MG in SODIUM CHLORIDE 0.9% 100 ML IV SCH (23:39)
[2023-08-05 00:17] LABS: Anion Gap 8 mmol/L; Carbon Dioxide 19 mmol/L (22-30); Chloride 112 mmol/L (98-107); Sodium 139 mmol/L (137-145)
[2023-08-05 00:19] LABS: Potassium 4.2 mmol/L (3.5-5.1)
--- NOTE | 2023-08-05 00:27 | XR ---
EXAM: XR Chest, 1 View CLINICAL HISTORY: ITS.REASON XR Reason: per physician order TECHNIQUE: Frontal view of the chest. COMPARISON: No relevant prior studies available. FINDINGS: Lungs: No consolidation or mass. Pleural space: No acute findings Heart: cardiomegaly. Bones/joints: No acute findings. IMPRESSION: No acute cardiopulmonary process.
--- NOTE | 2023-08-05 01:36 | HP ---
HISTORY AND PHYSICAL I am covering for Dr. Ferrera. CHIEF COMPLAINT: Fever and abdominal pain, diarrhea. HISTORY OF PRESENT ILLNESS: This 68-year-old gentleman with past medical history of DVT, hyperlipidemia, history of pneumonia, was complaining of abdominal discomfort. The patient also has history of C Diff in 2009. The abdominal pain is diffuse. Patient had fever, and the patient has some diarrhea, which was some black-colored, and patient came to [facility], and CT scan showed possible enterocolitis, admitted for further evaluation and treatment. There is no headache, loss of consciousness. No history of any eating unusual food or travel at this time, but interestingly, the patient's is also admitted for the last couple of days exactly because of similar symptoms according to the patient. The white count was elevated at 11.4 on admission. PAST MEDICAL HISTORY: History of chest pain, DVT, history of GERD. The rest of the history and rest of the chart is also reviewed. MEDICATIONS ARE: Motrin, dose and rest of medications noted. ALLERGIES: Morphine. FAMILY HISTORY: History of COPD, colon cancer. SOCIAL HISTORY: No history of smoking, THC. REVIEW OF SYSTEMS: Fourteen-point review is negative except as mentioned earlier. PHYSICAL EXAMINATION: VITAL SIGNS: Pulse is 89, blood pressure 100/37, respirations 18. HEENT: Conjunctivae normal. NECK: No JVD. CARDIOVASCULAR: S1, S2. RESPIRATIONS: Breath sounds diminished at the bases. ABDOMEN: Soft. Mild diffuse discomfort on palpation. No guarding. No rigidity. No masses. LEGS: No edema. No swelling. LABORATORY DATA: Sodium 140, potassium 4, rest of the labs are noted. ASSESSMENT: 1. Acute enterocolitis, rule out infectious enterocolitis. 2. Elevated WBC, present on admission. 3. Hypertension. 4. Mild hyperkalemia. 5. Family history of similar symptoms. 6. DVT. 7. Gastroesophageal reflux disease. 8. Hyperlipidemia. 9. History of pneumonia. 10.History of C diff with multiple complex medical issues. 11.History of bowel resection. RECOMMENDATIONS AND DISCUSSION: This 68-year-old gentleman presented with multiple complex medical issues, we will monitor the patient closely. I would initiate empiric antibiotics. Otherwise, the patient is started on Zosyn. I would add Levaquin to the current regimen. Infectious disease evaluation, surgical evaluation. Obtain the cultures. Culture for Salmonella typhi, ova stool parasite to rule out Cryptosporidium. Prognosis guarded because of multiple complex medical problems. Further recommendations to follow. See orders for details. MMODL / IJN: [id number] /
--- NOTE | 2023-08-05 08:05 | P.PN ---
Progress Note - Text Progress Note Date: 08/04/23 Patient seen and evaluated. Full consultation note forthcoming. Patient previously known from multiple operation for bowel obstructions. Patient reports multiple bowel movements yesterday. Incidentally, his significant other also has similar symptoms of chronic diarrhea and abdominal cramping. CT of the abdomen pelvis reviewed without free air. Possible bowel obstruction. Recommend small bowel follow-through. May have ice chips popsicles.
[2023-08-05 08:13] LABS: HCT 40.4 % (39.0-53.0); HGB 13.3 gm/dL (13.0-17.5); MCH 31.6 pg (25.0-35.0); MCV 95.9 fL (80.0-100.0); Mean Platelet Volume 8.1; Platelet Count 178 k/uL (150-450); RBC 4.21 m/uL (4.30-5.90); RDW 13.4 % (11.5-15.5); WBC 5.6 k/uL (3.8-10.6)
[2023-08-05 08:27] LABS: ALT 84 U/L (4-49); AST 47 U/L (17-59); African American GFR (CKD) >90 (>60 ml/min/1.73 sqM); Alkaline Phosphatase 57 U/L (38-126); Anion Gap 6 mmol/L; Blood Urea Nitrogen 25 mg/dL (9-20); Calcium 7.7 mg/dL (8.4-10.2); Carbon Dioxide 23 mmol/L (22-30); Chloride 111 mmol/L (98-107); Glucose 108 mg/dL (74-99); Non-African American GFR(CKD) >90 (>60 ml/min/1.73 sqM); Potassium 3.8 mmol/L (3.5-5.1); Sodium 140 mmol/L (137-145); Total Bilirubin 0.4 mg/dL (0.2-1.3); Total Protein 5.5 g/dL (6.3-8.2)
[2023-08-05 09:02] LABS: Monocytes # (M) 1.01 k/uL (0-1.0); Nucleated Red Blood Cells 0 /100 WBC (0-0)
[2023-08-05 09:09] LABS: Band Neutrophils % 9 %; Lymphocytes # (M) 1.34 k/uL (1.0-4.8); Neutrophils % (M) 50 %; Total Cells Counted 200
[2023-08-05 09:12] LABS: RBC Morphology Normal; Toxic Granulation Present
--- NOTE | 2023-08-05 10:11 | XR ---
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 TECHNIQUE: One radiographic view of the abdomen was obtained. FINDINGS: The bowel gas pattern is nonspecific without dilated loops of small or large bowel. There i s no evidence for organomegaly or pneumoperitoneum. The osseous structures are intact. No abnormal calcifications are present. Fecal material and gas are demonstrated throughout the colon and rectum. Multilevel degeneration changes of the spine with osteophyte formation disc space narrowing and face t joint arthropathy. Mild degeneration changes of the hips. IMPRESSION: Nonspecific bowel gas pattern without radiographic evidence for acute process.
--- NOTE | 2023-08-05 11:51 | P.CRDCN ---
History of Present Illness History of present illness: HISTORY OF PRESENT ILLNESS: This is a 68-year-old male with a past medical history significant for hyperlipidemia, peripheral vascular disease, and mild nonobstructive CAD. Patient used to follow in the office with Dr. Laureano but has not been seen since 2019. We have been asked to see the patient in consultation for arrhythmia. Patient examined at the bedside. [] DIAGNOSTICS: - EKG reveals atrial flutter/tachycardia - Chest xray negative for acute process. - Laboratory data: WBC 5.6. Hemoglobin 13.3. Platelet count 178. Sodium 140. Potassium 3.8. BUN 25. Creatinine 0.76. Troponin negative x 1. TSH 3.590. - Current home cardiac medications include rosuvastatin 20 mg daily. - Most recent echocardiogram obtained in 2012 revealed normal EF - Cardiac catheterization history: 2019 revealing right dominant system. 35% stenosis of mid LAD. Normal filling pressures. No gradient across aortic valve. REVIEW OF SYSTEMS: At the time of my exam: CONSTITUTIONAL: Denies fever or chills. HEENT: Denies blurred vision, vision changes, or eye pain. Denies hemoptysis CARDIOVASCULAR: Denies chest pain. Denies orthopnea. Denies PND. Denies palpitations RESPIRATORY: Denies shortness of breath. GASTROINTESTINAL: Denies abdominal pain. Denies nausea or vomiting. HEMATOLOGIC: Denies bleeding disorders. GENITOURINARY: Denies any blood in urine. SKIN: Denies pruitis. Denies rash. PHYSICAL EXAM: VITAL SIGNS: Reviewed. GENERAL: Well-developed in no acute distress. HEENT: Head is normocephalic. Pupils are equal, round. Sclerae anicteric. Mucous membranes of the mouth are moist. Neck supple. No JVD or thyromegaly LUNGS: Respirations even and unlabored. Lungs essentially clear to auscultation bilaterally. HEART: Regular rate and rhythm. S1 and S2 heard. ABDOMEN: Soft. Nondistended. Nontender. EXTREMITIES: Normal range of motion. No clubbing or cyanosis. Peripheral pulses intact. No lower extremity edema NEUROLOGIC: Awake and alert. Oriented x 3. ASSESSMENT: Possible small bowel obstruction, small bowel follow-through pending History of small bowel obstruction and exploratory laparotomy with lysis of adhesions History of ventral hernia repair New onset paroxysmal atrial flutter/fibrillation with RVR Mild nonobstructive CAD History of peripheral vascular disease Hyperlipidemia PLAN: Obtain 2D echo to assess cardiac structure and function Continue telemetry monitoring TSH checked and within normal limits Patient with isolated episode of atrial fibrillation/flutter which may be a result of his acute issues including small bowel obstruction If patient has recurrent episodes of atrial flutter/fibrillation, will consider anticoagulation Further recommendations pending patient course Nurse practitioner note has been reviewed by physician. Signing provider agrees with the documented findings, assessment, and plan of care documented by DEMO COORDINATOR as a scribe. Past Medical History Past Medical History: Cancer, Chest Pain / Angina, Deep Vein Thrombosis (DVT), GERD/Reflux, Hyperlipidemia, Pneumonia Additional Past Medical History / Comment(s): L lower leg DVT, c-diff (2009), blood clot behind R eye, basal skin cancer, pneumonia with SIRS, L foot plantar fascitis, chronic back pain, hx of blood in stool, frequent night time urination, past hiatal hernia, Hx of sm bowel obstructions, gas issues and constipation, Hx of COVID (Jun 2019), states told he has thickening of heart valve History of Any Multi-Drug Resistant Organisms: None Reported Date of last positivie culture/infection: 2009 MDRO Source:: stool Past Surgical History: Adenoidectomy, Bowel Resection, Cholecystectomy, Hernia Repair, Tonsillectomy Additional Past Surgical History / Comment(s): lysis of adhesions, & repair hiatal hernia and bowel obstruction, yamileth fundiplication, EGD, colonoscopies, T&A x2 at 1yrs & 12 yrs old, skin cancer removals., EGD with dilation. Past Anesthesia/Blood Transfusion Reactions: No Reported Reaction, Family History of Problems w/ Anesthesia Additional Past Anesthesia/Blood Transfusion Reaction / Comment(s): Half brother quit breathing during anesthesia. pt catheterized after lengthy surgery for urine retention Past Psychological History: No Psychological Hx Reported Smoking Status: Never smoker Past Alcohol Use History: None Reported Past Drug Use History: Marijuana Additional Drug Use History / Comment(s): OCCASIONAL MARIJUANA - Past Family History Brother(s) Family Medical History: Cancer Mother Family Medical History: Cancer, COPD Additional Family Medical History / Comment(s): COLON CANCER. Father Family Medical History: Cancer Additional Family Medical History / Comment(s): COLON CA LIVER, prostate Medications and Allergies Home Medications Medication Instructions Recorded Confirmed Type Aspirin [Adult Low Dose Aspirin EC] 162 mg PO DAILY 08/01/20 08/03/23 History Tamsulosin HCl [Flomax] 0.4 mg PO DAILY 08/01/20 08/03/23 History Ascorbic Acid [Vitamin C] 6,000 mg PO DAILY 10/18/20 08/03/23 History Docusate [Colace] 100 mg PO BID 10/18/20 08/03/23 History Multivitamins, Thera [Multivitamin 1 tab PO DAILY 10/18/20 08/03/23 History (formulary)] polyethylene glycoL 3350 [Miralax] 17 gm PO DAILY 11/20/20 08/03/23 History Cholecalciferol [Vitamin D3 (125 250 mcg PO DAILY 08/07/21 08/03/23 History Mcg = 5000 Iu)] Fish Oil/Dha/Epa [Fish Oil 1,200 1 cap PO BID 08/07/21 08/03/23 History mg Fish Oil] Lion José Supplement 1200 Mg 1,200 mg PO BID 08/07/21 08/03/23 History Acetaminophen Tab [Tylenol Tab] 1,000 mg PO Q6HR PRN #30 tablet 09/06/21 08/03/23 Rx Simethicone [Gas-X] 125 mg PO AC-TID PRN 10/28/21 08/03/23 History Ibuprofen [Motrin Ib] 600 mg PO Q8H PRN 08/03/23 08/03/23 History Rosuvastatin [Crestor] 20 mg PO DAILY 08/03/23 08/03/23 History Allergies Allergy/AdvReac Type Severity Reaction Status Date / Time morphine Allergy Rash/Hives/Shortness Verified 08/03/23 13:57 of Breath Physical Exam Vitals: Vital Signs Temp Pulse Resp BP BP Pulse Ox 08/05/23 08:00 98.6 F 84 18 148/76 93 L 08/05/23 04:00 98.0 F 85 16 123/59 93 L 08/05/23 00:00 97.9 F 92 18 126/68 92 L 08/04/23 20:00 98.4 F 86 16 126/73 94 L 08/04/23 16:00 98.3 F 87 18 131/79 95 08/04/23 11:35 97.9 F 89 18 130/74 93 L Intake and Output 08/04/23 08/05/2324 22:59 06:59 14:59 Intake Total 10 10 Balance 10 10 Intake: IV 10 10 Invasive Line 1 10 Invasive Line 2 10 Other: Voiding Method Toilet Toilet # Voids 6 2 # Bowel Movements 5 Results 08/05/23 07:00 08/05/23 07:00 Cardiac Enzymes 08/04/23 08/05/23 Range/Units 23:35 07:00 AST 47 (17-59) U/L Troponin I <0.012 (0.000-0.034) ng/mL CBC 08/04/23 08/05/23 Range/Units 10:58 07:00 WBC 4.9 5.6 (3.8-10.6) k/uL RBC 4.84 4.21 L (4.30-5.90) m/uL Hgb 15.4 13.3 (13.0-17.5) gm/dL Hct 45.9 40.4 (39.0-53.0) % Plt Count 191 178 (150-450) k/uL Comprehensive Metabolic Panel 08/04/23 08/04/23 08/05/23 Range/Units 10:58 23:35 07:00 Sodium 140 139 140 (137-145) mmol/L Potassium 4.0 4.2 3.8 (3.5-5.1) mmol/L Chloride 109 H 112 H 111 H (98-107) mmol/L Carbon Dioxide 21 L 19 L 23 (22-30) mmol/L BUN 35 H 25 H (9-20) mg/dL Creatinine 0.93 0.76 (0.66-1.25) mg/dL Glucose 145 H 108 H (74-99) mg/dL Calcium 7.9 L 7.7 L (8.4-10.2) mg/dL AST 47 (17-59) U/L ALT 84 H (4-49) U/L Alkaline Phosphatase 57 (38-126) U/L Total Protein 5.5 L (6.3-8.2) g/dL Albumin 3.0 L (3.5-5.0) g/dL Current Medications Generic Name Dose Route Start Last Admin Trade Name Freq PRN Reason Stop Dose Admin Acetaminophen 650 mg 08/03/23 20:18 08/04/23 23:35 Acetaminophen Tab 325 Mg Tab PO 650 mg Q6HR PRN Administration Mild Pain or Fever > 100.5 Heparin Sodium (Porcine) 5,000 unit 08/04/23 14:00 08/05/23 09:50 Heparin Sodium,Porcine 5,000 Unit/Ml 1 Ml Vial SQ 5,000 unit Q12HR ERWIN Administration Hydromorphone HCl 0.5 mg 08/03/23 20:18 08/05/23 09:50 Hydromorphone 0.5 Mg/0.5 Ml Syringe IVP 0.5 mg Q3HR PRN Administration Moderate Pain (Scale 4 to 6) Sodium Chloride 1,000 mls @ 75 mls/hr 08/03/23 16:45 08/04/23 23:38 Saline 0.9% IV 75 mls/hr .[id number] ERWIN Administration Piperacillin Sod/Tazobactam 100 mls @ 25 mls/hr 08/03/23 20:00 08/05/23 05:24 Sod 3.375 gm/ Sodium Chloride IVPB 25 mls/hr Q8H ERWIN Administration Protocol Diltiazem HCl 125 mg/ Sodium 125 mls @ 5 mls/hr 08/04/23 23:15 08/04/23 23:39 Chloride IV 5 mg/hr .Q24H ERWIN 5 mls/hr Administration 5 MG/HR Naloxone HCl 0.2 mg 08/03/23 20:18 Naloxone 0.4 Mg/Ml 1 Ml Vial IV Q2M PRN Opioid Reversal Ondansetron HCl 4 mg 08/03/23 20:18 08/05/23 03:47 Ondansetron 4 Mg/2 Ml Vial IVP 4 mg Q8HR PRN Administration Nausea And Vomiting Pantoprazole Sodium 40 mg 08/04/23 14:00 08/05/23 09:50 Pantoprazole 40 Mg/10 Ml Vial IVP 40 mg BID ERWIN Administration Tamsulosin HCl 0.4 mg 08/04/23 14:00 08/05/23 09:50 Tamsulosin 0.4 Mg Cap.Er.24h PO 0.4 mg DAILY ERWIN Administration Intake and Output 08/04/23 08/05/23 08/05/23 22:59 06:59 14:59 Intake Total 10 10 Balance 10 10 Intake: IV 10 10 Invasive Line 1 10 Invasive Line 2 10 Other: Voiding Method Toilet Toilet # Voids 6 2 # Bowel Movements 5 08/05/23 07:00 08/05/23 07:00
--- NOTE | 2023-08-05 13:18 | XR ---
EXAMINATION TYPE: XR chest 1V portable DATE OF EXAM: 08/05/2023 1:00 PM CLINICAL INDICATION:Male, 68 years old with history of verify ng placement; [facility] COMPARISON: Chest radiographs from 08/04/2023 TECHNIQUE: XR chest 1V portable Frontal view of the chest. FINDINGS: Lungs/Pleura: There is no evidence of pleural effusion, focal consolidation, or pneumothorax. Pulmonary vascularity: Unremarkable. Heart/mediastinum: Cardiomediastinal silhouette is unremarkable. Musculoskeletal: No acute osseous pathology. Other findings: None Lines/Tubes: Nasogastric tube with its distal tip and side-port projecting under the diaphragm and projecting over the gastric lumen. IMPRESSION: 1. Nasogastric tube in appropriate position. 2. Stable exam
--- NOTE | 2023-08-05 13:20 | CA ---
Transthoracic Echo Report Name: Saw De Anda Age: 68 Gender: M : 1955 Exam Date: 08/05/2023 09:46 Exam Location: [place] [facility] Ht (in): 72 Wt (lb): 260 Ordering Physician: Donna Grijalva Attending/Referring Phys: [id number], Rudi Seam Feller Lilli Mirza RCS Procedure CPT: Indications: LV function Cardiac Hx: Technical Quality: Fair Contrast 1: Total Dose (mL): Contrast 2: Total Dose (mL): MEASUREMENTS (Male / Female) Normal Values 2D ECHO LV Diastolic Diameter PLAX 5.4 cm 4.2 - 5.9 / 3.9 - 5.3 cm LV Systolic Diameter PLAX 3.4 cm IVS Diastolic Thickness 0.9 cm 0.6 - 1.0 / 0.6 - 0.9 cm LVPW Diastolic Thickness 0.9 cm 0.6 - 1.0 / 0.6 - 0.9 cm LV Relative Wall Thickness 0.3 RV Internal Dim ED PLAX 3.3 cm LVOT Diameter 2.5 cm LV Diastolic Volume MOD BP 137.9 cm??? 67 - 155 / 56 - 104 cm??? LV Systolic Volume MOD BP 45.2 cm??? 22 - 58 / 19 - 49 cm??? LV Ejection Fraction MOD BP 67.2 % >= 55 % LV Cardiac Index MOD BP 2906.5 cm???/min???m??? LV Diastolic Volume MOD 4C 131.9 cm??? LV Systolic Volume MOD 4C 47.5 cm??? LV Ejection Fraction MOD 4C 64.0 % LV Cardiac Index MOD 4C 2646.9 cm???/min???m??? LV Diastolic Length 4C 9.2 cm LV Systolic Length 4C 7.1 cm LV Diastolic Volume MOD 2C 142.8 cm??? LV Systolic Volume MOD 2C 43.2 cm??? LV Ejection Fraction MOD 2C 69.7 % LV Cardiac Index MOD 2C 3121.9 cm???/min???m??? LV Diastolic Length 2C 9.3 cm LV Systolic Length 2C 7.1 cm LA Volume 39.4 cm??? 18 - 58 / 22 - 52 cm??? LA Volume Index 15.9 cm???/m??? 16 - 28 cm???/m??? Ascending Aorta Diameter 3.8 cm DOPPLER AV Peak Velocity 129.9 cm/s AV Peak Gradient 6.8 mmHg AV Mean Velocity 80.9 cm/s AV Mean Gradient 3.0 mmHg AV Velocity Time Integral 22.4 cm LVOT Peak Velocity 110.6 cm/s LVOT Peak Gradient 4.9 mmHg LVOT Velocity Time Integral 19.0 cm LVOT Stroke Volume 94.1 cm??? LVOT Stroke Volume Index 39.5 ml/m??? LVOT Cardiac Index 2950.8 cm???/min???m??? AV Area Cont Eq vti 4.2 cm??? AV Area Cont Eq pk 4.2 cm??? Mitral E Point Velocity 65.8 cm/s Mitral A Point Velocity 75.9 cm/s Mitral E to A Ratio 0.9 MV Deceleration Time 153.8 ms MV E' Velocity 8.4 cm/s Mitral E to MV E' Ratio 7.9 PV Peak Velocity 65.4 cm/s PV Peak Gradient 1.7 mmHg FINDINGS Left Ventricle Left ventricular ejection fraction is estimated at 60-65 %. Left ventricular cavity size normal. Left ventricular wall thickness normal. No obvious regional wall motion abnormalities. Right Ventricle Borderline enlarged right ventricular size with normal function. Unable to estimate right ventricular systolic pressure. Right Atrium Right atrium not well visualized. Left Atrium Normal left atrial size. Mitral Valve Structurally normal mitral valve. No mitral stenosis, regurgitation or prolapse. Aortic Valve Trileaflet aortic valve. No aortic valve stenosis or regurgitation. Tricuspid Valve Structurally normal tricuspid valve. No tricuspid stenosis. Trace tricuspid regurgitation. Pulmonic Valve Structurally normal pulmonic valve. No pulmonic stenosis. No pulmonic regurgitation. Pericardium No pericardial effusion. Aorta Normal size aortic root and proximal ascending aorta. CONCLUSIONS Left ventricular ejection fraction 60-65% Normal left ventricular wall thickness No mitral regurgitation Trace tricuspid regurgitation No pericardial effusion Previewed by: Dr. Josh Parisi DO (Electronically Signed) Final Date: 05 August 2023 13:19
[2023-08-05 13:33] LABS: Cryptosporidium Antigen Negative (Negative)
--- NOTE | 2023-08-05 15:19 | FL ---
EXAMINATION TYPE: FL small bowel follow through DATE OF EXAM: 08/05/2023 3:10 PM COMPARISON: CT abdomen pelvis most recent from INDICATION: Patient age:Male; 68 years old; Reason for study: sbo; TECHNIQUE: The procedure was explained and patient history elicited. All patient questions were ans wered prior to start of procedure. A academic support coordinator radiograph of the abdomen was also reviewed. The patient was asked to ingest liquid Gastrografin and incremental frontal abdominal radiographs were then taken until contrast was visualized in the cecum. Fluoroscopic time: min Fluoroscopic images: Radiographs taken: 6 DAP: 0 mGym2 FINDINGS: Nasogastric tube in place. Contrast is seen extending from the duodenojejunal junction into the cecum after two hours, which is within the expected time period. The small bowel follows normal distribution and contour without any evidence of extraluminal or intraluminal irregularity. There is no displacement of bowel loops or e xtraluminal extravasation of contrast material. Small bowel mucosal folds are felt to be within rupinder l limits. IMPRESSION: Normal detailed small bowel examination. No evidence of small bowel obstruction.
--- NOTE | 2023-08-05 15:54 | P.GSCN ---
History of Present Illness Consult date: 08/05/23 History of present illness: CHIEF COMPLAINT: Small bowel obstruction HISTORY OF PRESENT ILLNESS: This is a 68-year-old male who presented to the hospital with complaints of abdominal pain and diarrhea that started on Friday. Patient does have prior history of multiple recurrent small bowel obstructions. He is status post exploratory laparotomy with lysis of adhesions in February 2020. Patient also has had robotic laparoscopic repair of recurrent incarcerated incisional hernia with mesh, cholecystectomy repair of hiatal hernia. Patient reports his last episode of diarrhea was yesterday. He is having flatus. Still reports diffuse abdominal pain. He did have a fever of 106 on Friday. Patient followed by cardiology for new atrial flutter/fibrillation. Cardizem has been discontinued. PAST MEDICAL HISTORY: See list. PAST SURGICAL HISTORY: See list. MEDICATIONS: See list. ALLERGIES: See list. SOCIAL HISTORY: No illicit drug use. REVIEW OF SYSTEMS: CONSTITUTIONAL: Denies fever or chills. HEENT: Denies blurred vision, vision changes, or eye pain. Denies hemoptysis ENDOCRINE: Denies heat or cold intolerance. CARDIOVASCULAR: Denies chest pain or pressure. RESPIRATORY: No shortness of breath. GASTROINTESTINAL: Denies abdominal pain. Denies nausea or vomiting. NEURO: Denies history of seizures. PSYCH: No depression or suicidal ideation HEMATOLOGIC: Denies bleeding disorders. LYMPHATIC: The patient denies any lumps and bumps around the neck. GENITOURINARY: Denies any blood in urine or increased urinary frequency. MUSCULOSKELETAL: Denies myalgias. Denies joint swelling. Denies decreased range of motion beyond patients baseline. SKIN: Denies pruitis. Denies rash. PHYSICAL EXAM: VITAL SIGNS: Reviewed GENERAL: Well-developed in no acute distress. HEENT: No sclera icterus. Extraocular movements grossly intact. Moist buccal mucosa. Head is atraumatic, normocephalic. Hears conversational speech. No nasal drainage. NECK: Supple without lymphadenopathy. CHEST: Non-labored respirations and equal bilateral excursions. CARDIOVASCULAR: Palpable 2+ radial pulses. ABDOMEN: Soft. Mildly distended. Diffuse tenderness. MUSCULOSKELETAL: No clubbing or cyanosis. NEUROLOGIC: No focal or lateralizing signs. Cranial nerves II through XII grossly intact. PSYCH: Appropriate affect. Alert and oriented to person, place and time. SKIN: Well perfused. Good skin turgor. LABORATORY DATA: WBC 5.6 Hgb 13.3 platelets 178 Sodium is 140 potassium 3.8 creatinine 0.76 IMAGING: CT scan abdomen pelvis that showed multiple fluid-filled dilated loops of mid small bowel concerning for obstruction or partial obstruction without discrete transition point. Colonic fluid contents and predominantly right colon and distal colon with greatest distention of the rectum uncertain etiology but superimposed enterocolitis is a consideration. No evidence of bowel wall pneumatosis free fluid or free air or abscess Small bowel follow-through with no evidence of small bowel obstruction ASSESSMENT: 1. Abdominal pain with diarrhea 2. Possible partial small bowel obstruction. No evidence of small bowel obstruction noted on small bowel follow-through 3. Prior history of small bowel obstruction with exploratory laparotomy and ly sis of adhesions 4. New onset paroxysmal atrial flutter/atrial fibrillation with RVR followed by cardiology 5. Coronary artery disease 6. History of peripheral vascular disease 7. Hyperlipidemia PLAN: -Keep patient n.p.o. except for ice chips and popsicles -Encourage patient ambulate -Continue IV fluids -Follow-up on stool culture results -Further recommendations forthcoming per surgeon Physician Fund Raiser note has been reviewed by physician. Signing provider agrees with the documented findings, assessment, and plan of care. Past Medical History Past Medical History: Cancer, Chest Pain / Angina, Deep Vein Thrombosis (DVT), GERD/Reflux, Hyperlipidemia, Pneumonia Additional Past Medical History / Comment(s): L lower leg DVT, c-diff (2009), blood clot behind R eye, basal skin cancer, pneumonia with SIRS, L foot plantar fascitis, chronic back pain, hx of blood in stool, frequent night time urination, past hiatal hernia, Hx of sm bowel obstructions, gas issues and constipation, Hx of COVID (Jun 2019), states told he has thickening of heart valve History of Any Multi-Drug Resistant Organisms: None Reported Year Discovered:: 2009 MDRO Source:: stool Past Surgical History: Adenoidectomy, Bowel Resection, Cholecystectomy, Hernia Repair, Tonsillectomy Additional Past Surgical History / Comment(s): lysis of adhesions, & repair hiatal hernia and bowel obstruction, yamileth fundiplication, EGD, colonoscopies, T&A x2 at 1yrs & 12 yrs old, skin cancer removals., EGD with dilation. Past Anesthesia/Blood Transfusion Reactions: No Reported Reaction, Family History of Problems w/ Anesthesia Additional Past Anesthesia/Blood Transfusion Reaction / Comm: Half brother quit breathing during anesthesia. pt catheterized after lengthy surgery for urine retention Past Psychological History: No Psychological Hx Reported Smoking Status: Never smoker Past Alcohol Use History: None Reported Past Drug Use History: Marijuana Additional Drug Use History / Comment(s): OCCASIONAL MARIJUANA - Past Family History Brother(s) Family Medical History: Cancer Mother Family Medical History: Cancer, COPD Additional Family Medical History / Comment(s): COLON CANCER. Father Family Medical History: Cancer Additional Family Medical History / Comment(s): COLON CA LIVER, prostate Medications and Allergies Home Medications Medication Instructions Recorded Confirmed Type Aspirin [Adult Low Dose Aspirin EC] 162 mg PO DAILY 08/01/20 08/03/23 History Tamsulosin HCl [Flomax] 0.4 mg PO DAILY 08/01/20 08/03/23 History Ascorbic Acid [Vitamin C] 6,000 mg PO DAILY 10/18/20 08/03/23 History Docusate [Colace] 100 mg PO BID 10/18/20 08/03/23 History Multivitamins, Thera [Multivitamin 1 tab PO DAILY 10/18/20 08/03/23 History (formulary)] polyethylene glycoL 3350 [Miralax] 17 gm PO DAILY 11/20/20 08/03/23 History Cholecalciferol [Vitamin D3 (125 250 mcg PO DAILY 08/07/21 08/03/23 History Mcg = 5000 Iu)] Fish Oil/Dha/Epa [Fish Oil 1,200 1 cap PO BID 08/07/21 08/03/23 History mg Fish Oil] Lion José Supplement 1200 Mg 1,200 mg PO BID 08/07/21 08/03/23 History Acetaminophen Tab [Tylenol Tab] 1,000 mg PO Q6HR PRN #30 tablet 09/06/21 08/03/23 Rx Simethicone [Gas-X] 125 mg PO AC-TID PRN 10/28/21 08/03/23 History Ibuprofen [Motrin Ib] 600 mg PO Q8H PRN 08/03/23 08/03/23 History Rosuvastatin [Crestor] 20 mg PO DAILY 08/03/23 08/03/23 History Allergies Allergy/AdvReac Type Severity Reaction Status Date / Time morphine Allergy Rash/Hives/Shortness Verified 08/03/23 13:57 of Breath Surgical - Exam Vital Signs Temp Pulse Resp BP Pulse Ox 101.6 F H 114 H 18 136/74 92 L 08/03/23 13:52 08/03/23 13:52 08/03/23 13:52 08/03/23 13:52 08/03/23 13:52 Results - Labs 08/05/23 07:00 08/05/23 07:00 Abnormal Lab Results - Last 24 Hours (Table) 08/04/23 08/05/23 08/05/23 Range/Units 23:35 07:00 07:00 RBC 4.21 L (4.30-5.90) m/uL Monocytes # (Manual) 1.01 H (0-1.0) k/uL Chloride 112 H 111 H (98-107) mmol/L Carbon Dioxide 19 L (22-30) mmol/L BUN 25 H (9-20) mg/dL Glucose 108 H (74-99) mg/dL Calcium 7.7 L (8.4-10.2) mg/dL ALT 84 H (4-49) U/L Total Protein 5.5 L (6.3-8.2) g/dL Albumin 3.0 L (3.5-5.0) g/dL Microbiology - Last 24 Hours (Table) 08/03/23 20:26 Blood Culture - Preliminary Blood 08/03/23 20:26 Blood Culture - Preliminary Blood Diabetes panel 08/04/23 08/05/23 Range/Units 23:35 07:00 Sodium 139 140 (137-145) mmol/L Potassium 4.2 3.8 (3.5-5.1) mmol/L Chloride 112 H 111 H (98-107) mmol/L Carbon Dioxide 19 L 23 (22-30) mmol/L BUN 25 H (9-20) mg/dL Creatinine 0.76 (0.66-1.25) mg/dL Glucose 108 H (74-99) mg/dL Calcium 7.7 L (8.4-10.2) mg/dL AST 47 (17-59) U/L ALT 84 H (4-49) U/L Alkaline Phosphatase 57 (38-126) U/L Total Protein 5.5 L (6.3-8.2) g/dL Albumin 3.0 L (3.5-5.0) g/dL Thyroid panel 08/04/23 Range/Units 23:35 TSH 3.590 (0.465-4.680) mIU/L Calcium panel 08/05/23 Range/Units 07:00 Calcium 7.7 L (8.4-10.2) mg/dL Albumin 3.0 L (3.5-5.0) g/dL Pituitary panel 08/04/23 08/05/23 Range/Units 23:35 07:00 Sodium 139 140 (137-145) mmol/L Potassium 4.2 3.8 (3.5-5.1) mmol/L Chloride 112 H 111 H (98-107) mmol/L Carbon Dioxide 19 L 23 (22-30) mmol/L BUN 25 H (9-20) mg/dL Creatinine 0.76 (0.66-1.25) mg/dL Glucose 108 H (74-99) mg/dL Calcium 7.7 L (8.4-10.2) mg/dL TSH 3.590 (0.465-4.680) mIU/L Adrenal panel 08/04/23 08/05/23 Range/Units 23:35 07:00 Sodium 139 140 (137-145) mmol/L Potassium 4.2 3.8 (3.5-5.1) mmol/L Chloride 112 H 111 H (98-107) mmol/L Carbon Dioxide 19 L 23 (22-30) mmol/L BUN 25 H (9-20) mg/dL Creatinine 0.76 (0.66-1.25) mg/dL Glucose 108 H (74-99) mg/dL Calcium 7.7 L (8.4-10.2) mg/dL Total Bilirubin 0.4 (0.2-1.3) mg/dL AST 47 (17-59) U/L ALT 84 H (4-49) U/L Alkaline Phosphatase 57 (38-126) U/L Total Protein 5.5 L (6.3-8.2) g/dL Albumin 3.0 L (3.5-5.0) g/dL
--- NOTE | 2023-08-05 16:21 | P.PN ---
Subjective Progress Note Date: 08/05/23 Principal diagnosis: Reason for follow-up is fever/small bowel obstruction Patient is a 68-year-old male with a past medical history significant for hyperlipidemia DVT basal cell skin cancer history of small bowel obstruction requiring exploratory laparotomy and lysis of adhesion and repair of ventral hernia presenting to the hospital for evaluation of fever and multiple episodes of diarrhea, patient did have a fever on presentation to the hospital CT abdominal pelvis with multiple fluid-filled dilated loops concerning for obstruction. On today's visit that is 08/05/2023, Patient did have resolution of his fever and is afebrile this morning patient is currently on room air and denies having any shortness of breath, the patient denies any chest pain or cough, the patient did have NG and no further vomiting abdominal pain slightly decreased intensity he did have 1 bowel movement this morning. Patient white count is 5.6 creatinine 0.76 stool for C. difficile negative blood cultures pending Objective - Vital Signs Vital signs: Vital Signs Temp 97.9 F 08/05/23 15:43 Pulse 75 08/05/23 15:43 Resp 18 08/05/23 15:43 BP 102/69 08/05/23 15:43 Pulse Ox 90 L 08/05/23 15:43 FiO2 Intake & Output 08/04/23 08/05/23 08/05/23 18:59 06:59 18:59 Intake Total 20 Balance 20 Intake: IV 20 Invasive Line 1 10 Invasive Line 2 10 Other: Voiding Method Toilet Toilet # Voids 6 2 # Bowel Movements 5 - Exam GENERAL DESCRIPTION: An elderly male lying in bed in no distress RESPIRATORY SYSTEM: Unlabored breathing , decreased breath sounds at bases HEART: S1 S2 regular rate and rhythm , ABDOMEN: Soft , mild distention EXTREMITIES: No edema feet - Labs CBC & Chem 7: 08/05/23 07:00 08/05/23 07:00 Labs: Abnormal Lab Results - Last 24 Hours (Table) 08/04/23 08/05/23 08/05/23 Range/Units 23:35 07:00 07:00 RBC 4.21 L (4.30-5.90) m/uL Monocytes # (Manual) 1.01 H (0-1.0) k/uL Chloride 112 H 111 H (98-107) mmol/L Carbon Dioxide 19 L (22-30) mmol/L BUN 25 H (9-20) mg/dL Glucose 108 H (74-99) mg/dL Calcium 7.7 L (8.4-10.2) mg/dL ALT 84 H (4-49) U/L Total Protein 5.5 L (6.3-8.2) g/dL Albumin 3.0 L (3.5-5.0) g/dL Microbiology - Last 24 Hours (Table) 08/03/23 20:26 Blood Culture - Preliminary Blood 08/03/23 20:26 Blood Culture - Preliminary Blood Assessment and Plan (1) Fever Current Visit: Yes Status: Acute Code(s): R50.9 - FEVER, UNSPECIFIED SNOMED Code(s): 360275572 (2) Small bowel obstruction Current Visit: Yes Status: Acute Code(s): K56.69 - OTHER INTESTINAL OBSTRUCTION * DO NOT USE * SNOMED Code(s): 711678430 Plan: 1patient presented hospital with sepsis in this patient who did have fever tachycardia elevated white count was also likely abdominal with predominantly abdominal symptoms did have diarrhea but no antibiotic exposure stool for C. difficile is negative CT abdominal pelvis suggestive of bowel obstruction and will need to cover for the enteric gram-negative to be the likely pathogen 2-stool for C. difficile is negative stool culture currently pending 3-patient to continue Zosyn 3.375 g every 8 hours and monitor clinical course closely Dictation was produced using [employer] dictation software. please excuse any grammatical, word or spelling errors. Time with Patient: Less than 30
--- NOTE | 2023-08-05 18:37 | P.PN ---
Subjective Progress Note Date: 08/05/23 Patient is evaluated today on the stepdown unit. Has had multiple small lose bowel movements none since last night. He continues to report significant diffuse abdominal discomfort rating 10/10. He has been placed NPO for partial small bowel obstruction with general surgery consultation. He was unable to sw allow the contrast. For this reason NG tube is recommended and patient to undergo small bowel follow through study today. Patient was also found to be in atrial fibrillation with RVR overnight requiring IV cardizem, he did convert to normal sinus rhythm. He will be evaluated by cardiology and echocardiogram has been ordered. He had a negative chest xray today. His white blood cell count remains normal. His fever has resolved. Review of Systems Constitutional: Denied any fatigue denied any fever. Cardio vascular: denied any chest pain, palpitations Gastrointestinal: denied any nausea, vomiting. Reports diarrhea and abdominal pain. Pulmonary: Denied any shortness of breath cough Neurologic denied any new focal deficits All inpatient medications were reviewed and appropriate changes in these medications as dictated in the interval history and assessment and plan. PHYSICAL EXAMINATION: GENERAL: The patient is alert and oriented x3, not in any acute distress. Well developed, well nourished. HEENT: Pupils are round and equally reacting to light. EOMI. No scleral icterus. No conjunctival pallor. Normocephalic, atraumatic. No pharyngeal erythema. No thyromegaly. CARDIOVASCULAR: S1 and S2 present. No murmurs, rubs, or gallops. PULMONARY: Chest is clear to auscultation, no wheezing or crackles. ABDOMEN: Soft, tender, nondistended, normoactive bowel sounds. No palpable organomegaly. MUSCULOSKELETAL: No joint swelling or deformity. EXTREMITIES: No cyanosis, clubbing, or pedal edema. NEUROLOGICAL: Gross neurological examination did not reveal any focal deficits. SKIN: No rashes. Assessment and Plan -Abdominal pain and diarrhea from gastroenterocolitis with sepsis; ID following and on IV zosyn. Clinically improving. -Rule out partial small bowel obstruction NG tube will be placed and patient will undergo small bowel follow through today. General surgery following -New onset atrial fibrillation/flutter, paroxysmal; converted to normal sinus rhythm; IV cardizem discontinued. Echocardiogram pending. Cardiology following. -Hx hyperlipidemia -Hx of DVT -Gastroesophageal reflux disease -Hx of C.Dif colitis -Hx of bowel obstruction with resection and lysis of adhesions GI prophylaxis DVT prophylaxis Full Code The impression and plan of care has been dictated by Lizy Campoverde, Nurse Practitioner as directed. Dr. Gerald MD I have performed a history and physical examination and medical decision making of this patient, discussed the same with the dictator, and agree with the dictators assessment and plan as written, documented as a scribe. Based on total visit time, I have performed more than 50% of this visit. Objective - Vital Signs Vital signs: Vital Signs Temp 98.6 F 08/05/23 08:00 Pulse 84 08/05/23 08:00 Resp 18 08/05/23 08:00 BP 148/76 08/05/23 08:00 Pulse Ox 93 L 08/05/23 08:00 FiO2 Intake & Output 08/04/23 08/05/23 08/05/23 18:59 06:59 18:59 Intake Total 20 Balance 20 Intake: IV 20 Invasive Line 1 10 Invasive Line 2 10 Other: Voiding Method Toilet Toilet # Voids 6 2 # Bowel Movements 5 - Labs CBC & Chem 7: 08/05/23 07:00 08/05/23 07:00 Labs: Abnormal Lab Results - Last 24 Hours (Table) 08/04/23 08/04/23 08/04/23 Range/Units 10:58 10:58 23:35 RBC (4.30-5.90) m/uL Lymphocytes # (Manual) 0.59 L (1.0-4.8) k/uL Monocytes # (Manual) (0-1.0) k/uL Metamyelocytes # (Man) 0.05 H (0) k/uL Myelocytes # (Manual) 0.05 H (0) k/uL Chloride 109 H 112 H (98-107) mmol/L Carbon Dioxide 21 L 19 L (22-30) mmol/L BUN 35 H (9-20) mg/dL Glucose 145 H (74-99) mg/dL Calcium 7.9 L (8.4-10.2) mg/dL ALT (4-49) U/L Total Protein (6.3-8.2) g/dL Albumin (3.5-5.0) g/dL 08/05/23 08/05/23 Range/Units 07:00 07:00 RBC 4.21 L (4.30-5.90) m/uL Lymphocytes # (Manual) (1.0-4.8) k/uL Monocytes # (Manual) 1.01 H (0-1.0) k/uL Metamyelocytes # (Man) (0) k/uL Myelocytes # (Manual) (0) k/uL Chloride 111 H (98-107) mmol/L Carbon Dioxide (22-30) mmol/L BUN 25 H (9-20) mg/dL Glucose 108 H (74-99) mg/dL Calcium 7.7 L (8.4-10.2) mg/dL ALT 84 H (4-49) U/L Total Protein 5.5 L (6.3-8.2) g/dL Albumin 3.0 L (3.5-5.0) g/dL Assessment and Plan Time with Patient: Less than 30
[2023-08-06] MEDS: METOPROLOL TARTRATE 25 MG TAB PO SCH (09:44)
[2023-08-06] MEDS: KETOROLAC 15 MG/ML 1 ML VIAL IVP PRN (09:45)
--- NOTE | 2023-08-06 11:24 | P.PN ---
Subjective HISTORY OF PRESENT ILLNESS: This is a 68-year-old male with a past medical history significant for hyperlipidemia, peripheral vascular disease, and mild nonobstructive CAD. Patient used to follow in the office with Dr. Laureano but has not been seen since 2019. We have been asked to see the patient in consultation for arrhythmia. Patient examined at the bedside. Initially presented to the hospital with a chief complaint of abdominal pain and diarrhea. Patient was found to have a small bowel obstruction. Additionally, patient went into A-fib with RVR. He denies a history of atrial fibrillation. He was placed on IV Cardizem and subsequently converted to sinus mechanism. DIAGNOSTICS: - EKG reveals atrial flutter/tachycardia - Chest xray negative for acute process. - Laboratory data: WBC 5.6. Hemoglobin 13.3. Platelet count 178. Sodium 140. Potassium 3.8. BUN 25. Creatinine 0.76. Troponin negative x 1. TSH 3.590. - Current home cardiac medications include rosuvastatin 20 mg daily. - Most recent echocardiogram obtained in 2012 revealed normal EF - Cardiac catheterization history: 2019 revealing right dominant system. 35% stenosis of mid LAD. Normal filling pressures. No gradient across aortic valve. 07/2003 Patient examined this morning the bedside. Patient denies chest pain or pressure. He denies shortness of breath. Telemetry reveals sinus mechanism. Echocardiogram completed revealing ejection fraction 60 to 65% with trace TR. PHYSICAL EXAM: VITAL SIGNS: Reviewed. GENERAL: Well-developed in no acute distress. HEENT: Head is normocephalic. Pupils are equal, round. Sclerae anicteric. Mucous membranes of the mouth are moist. Neck supple. No JVD or thyromegaly LUNGS: Respirations even and unlabored. Lungs essentially clear to auscultation bilaterally. HEART: Regular rate and rhythm. S1 and S2 heard. ABDOMEN: Soft. Nondistended. Nontender. EXTREMITIES: Normal range of motion. No clubbing or cyanosis. Peripheral pulses intact. No lower extremity edema NEUROLOGIC: Awake and alert. Oriented x 3. ASSESSMENT: [place] pain with diarrhea Possible small bowel obstruction, small bowel follow-through with no evidence of small bowel obstruction noted History of small bowel obstruction and exploratory laparotomy with lysis of adhesions History of ventral hernia repair New onset paroxysmal atrial flutter/fibrillation with RVR Mild nonobstructive CAD History of peripheral vascular disease Hyperlipidemia PLAN: Continue current cardiac medications Continue telemetry monitoring Patient with isolated episode of atrial fibrillation/flutter which may be a result of his acute issues If patient has recurrent episodes of atrial flutter/fibrillation, will consider anticoagulation Further recommendations pending patient course Nurse practitioner note has been reviewed by physician. Signing provider agrees with the documented findings, assessment, and plan of care documented by APPLICATIONS INSTRUCTOR as a scribe. Objective - Vital Signs Vital signs: Vital Signs Temp 98.7 F 08/06/23 08:00 Pulse 75 08/06/23 08:33 Resp 16 08/06/23 08:33 BP 113/65 08/06/23 08:00 Pulse Ox 94 L 08/06/23 08:00 FiO2 Intake & Output 08/05/23 08/06/23 08/06/23 18:59 06:59 18:59 Weight 119.2 kg Other: Voiding Method Toilet Toilet # Voids 2 # Bowel Movements 1 2 - Labs CBC & Chem 7: 08/05/23 07:00 08/05/23 07:00 Labs: Microbiology - Last 24 Hours (Table) 08/03/23 20:26 Blood Culture - Preliminary Blood 08/03/23 20:26 Blood Culture - Preliminary Blood
--- NOTE | 2023-08-06 14:55 | P.PN ---
Subjective Progress Note Date: 08/06/23 Principal diagnosis: Reason for follow-up is fever/small bowel obstruction Patient is a 68-year-old male with a past medical history significant for hyperlipidemia DVT basal cell skin cancer history of small bowel obstruction requiring exploratory laparotomy and lysis of adhesion and repair of ventral hernia presenting to the hospital for evaluation of fever and multiple episodes of diarrhea, patient did have a fever on presentation to the hospital CT abdominal pelvis with multiple fluid-filled dilated loops concerning for obstruction. On today's visit that is 08/06/2023, patient has been afebrile, patient is breathing comfortably and is currently on room air, patient denies having any significant cough no chest pain shortness of breath, patient denies nausea vomiting has been tolerating his diet NG has been discontinued abdominal pain improved still having some diarrhea but less frequent. Patient white count is 5.6, creatinine 0.76 stool for C. difficile negative blood cultures pending Objective - Vital Signs Vital signs: Vital Signs Temp 97.8 F 08/06/23 11:45 Pulse 65 08/06/23 11:45 Resp 16 08/06/23 11:45 BP 134/84 08/06/23 11:45 Pulse Ox 94 L 08/06/23 11:45 FiO2 Intake & Output 08/05/23 08/06/23 08/06/23 18:59 06:59 18:59 Weight 119.2 kg Other: Voiding Method Toilet Toilet # Voids 2 1 # Bowel Movements 1 2 - Exam GENERAL DESCRIPTION: An elderly male lying in bed in no distress RESPIRATORY SYSTEM: Unlabored breathing , decreased breath sounds at bases HEART: S1 S2 regular rate and rhythm , ABDOMEN: Soft , mild distention EXTREMITIES: No edema feet - Labs CBC & Chem 7: 08/05/23 07:00 08/05/23 07:00 Labs: Microbiology - Last 24 Hours (Table) 08/03/23 20:26 Blood Culture - Preliminary Blood 08/03/23 20:26 Blood Culture - Preliminary Blood Assessment and Plan (1) Fever Current Visit: Yes Status: Acute Code(s): R50.9 - FEVER, UNSPECIFIED SNOMED Code(s): 068336365 (2) Small bowel obstruction Current Visit: Yes Status: Acute Code(s): K56.69 - OTHER INTESTINAL OBSTRUCTION * DO NOT USE * SNOMED Code(s): 363956205 Plan: 1patient presented hospital with sepsis in this patient who did have fever t achycardia elevated white count was also likely abdominal with predominantly abdominal symptoms did have diarrhea but no antibiotic exposure stool for C. difficile is negative CT abdominal pelvis suggestive of bowel obstruction and will need to cover for the enteric gram-negative to be the likely pathogen 2-stool for C. difficile is negative stool culture currently pending 3-patient did have resolution of his fever white count is normal, we will continue Zosyn 3.375 g every 8 hours in view of clinical improvement and monitor clinical course closely Dictation was produced using [employer] dictation software. please excuse any grammatical, word or spelling errors. Time with Patient: Less than 30
--- NOTE | 2023-08-06 15:00 | P.PN ---
Subjective Progress Note Date: 08/06/23 CHIEF COMPLAINT: Abdominal pain HISTORY OF PRESENT ILLNESS: Patient presented with abdominal pain and diarrhea. Small bowel follow-through was negative for bowel obstruction. Patient is currently afebrile. He has been having diarrhea and flatus. Patient reporting now on a brother who he was in contact with is now sick with a new high-grade fever and diarrhea. WBC 5.6 PHYSICAL EXAM: VITAL SIGNS: Reviewed. GENERAL: Well-developed in no acute distress. HEENT: No sclera icterus. Extraocular movements grossly intact. Moist buccal mucosa. Head is atraumatic, normocephalic. ABDOMEN: Soft. Nondistended. Nontender. NEUROLOGIC: Alert and oriented. Cranial nerves II through XII grossly intact. ASSESSMENT: 1. Abdominal pain with diarrhea likely secondary to viral gastroenteritis. No evidence of bowel obstruction on small bowel follow-through 2. Prior history of small bowel obstruction with exploratory laparotomy and lysis of adhesions 3. New onset paroxysmal atrial flutter/atrial fibrillation with RVR followed by cardiology 4. Coronary artery disease 5. History of peripheral vascular disease 6. Hyperlipidemia PLAN: -Advance diet to low fiber -Follow-up on stool cultures -Patient followed by infectious disease -No surgical intervention planned -Patient can be discharged from surgical standpoint when medically cleared Physician [employer] Technician note has been reviewed by physician. Signing provider agrees with the documented findings, assessment, and plan of care. Objective - Vital Signs Vital signs: Vital Signs Temp 97.8 F 08/06/23 11:45 Pulse 65 08/06/23 11:45 Resp 16 08/06/23 11:45 BP 134/84 08/06/23 11:45 Pulse Ox 94 L 08/06/23 11:45 FiO2 Intake & Output 08/05/23 08/06/23 08/06/23 18:59 06:59 18:59 Weight 119.2 kg Other: Voiding Method Toilet Toilet # Voids 2 1 # Bowel Movements 1 2 - Labs CBC & Chem 7: 08/05/23 07:00 08/05/23 07:00 Labs: Microbiology - Last 24 Hours (Table) 08/04/23 22:30 Urine Culture - Final Urine,Clean Catch 08/03/23 20:26 Blood Culture - Preliminary Blood 08/03/23 20:26 Blood Culture - Preliminary Blood
--- NOTE | 2023-08-06 15:12 | P.PN ---
Subjective Progress Note Date: 08/06/23 Patient is evaluated today on the stepdown unit. Has had multiple small lose bowel movements none since last night. He continues to report significant diffuse abdominal discomfort rating 10/10. He has been placed NPO for partial small bowel obstruction with general surgery consultation. He was unable to sw allow the contrast. For this reason NG tube is recommended and patient to undergo small bowel follow through study today. Patient was also found to be in atrial fibrillation with RVR overnight requiring IV cardizem, he did convert to normal sinus rhythm. He will be evaluated by cardiology and echocardiogram has been ordered. He had a negative chest xray today. His white blood cell count remains normal. His fever has resolved. 08/06/2023 Patient is evaluated today on the stepdown unit. He continues to report abdominal discomfort mostly periumbilical. He had a large bowel movement last night after receiving contrast. There was no evidence of bowel obstruction no the follow through. He was advanced to low fiber diet. He is continued on IV dilaudid and toradol. Hemodynamically he is stable. He remains in normal sinus rhythm. Review of Systems Constitutional: Denied any fatigue denied any fever. Cardio vascular: denied any chest pain, palpitations Gastrointestinal: denied any nausea, vomiting. Reports abdominal pain. Pulmonary: Denied any shortness of breath cough Neurologic denied any new focal deficits All inpatient medications were reviewed and appropriate changes in these medi cations as dictated in the interval history and assessment and plan. PHYSICAL EXAMINATION: GENERAL: The patient is alert and oriented x3, not in any acute distress. Well developed, well nourished. HEENT: Pupils are round and equally reacting to light. EOMI. No scleral icterus. No conjunctival pallor. Normocephalic, atraumatic. No pharyngeal erythema. No thyromegaly. CARDIOVASCULAR: S1 and S2 present. No murmurs, rubs, or gallops. PULMONARY: Chest is clear to auscultation, no wheezing or crackles. ABDOMEN: Soft, tender, nondistended, normoactive bowel sounds. No palpable organomegaly. MUSCULOSKELETAL: No joint swelling or deformity. EXTREMITIES: No cyanosis, clubbing, or pedal edema. NEUROLOGICAL: Gross neurological examination did not reveal any focal deficits. SKIN: No rashes. Assessment and Plan -Abdominal pain and diarrhea from gastroenterocolitis with sepsis; ID following and on IV zosyn. Clinically improving. -Rule out partial small bowel obstruction, which patient underwent small bowel follow through which reveals no obstruction. -New onset atrial fibrillation/flutter, paroxysmal; converted to normal sinus rhythm; IV cardizem discontinued. Continue with cardiac telemetry monitoring. Will be considered for anticoagulation if further episods of atrial fibrilla tion/flutter. -Hx hyperlipidemia -Hx of DVT -Gastroesophageal reflux disease -Hx of C.Dif colitis -Mild nonobstructive coronary artery disease -Hx of bowel obstruction with resection and lysis of adhesions GI prophylaxis DVT prophylaxis Full Code Continue supportive care and increased diet as tolerated. Possible D/C home in the next 24 hours. The impression and plan of care has been dictated by Lizy Campoverde, Nurse Practitioner as directed. Dr. Gerald MD I have performed a history and physical examination and medical decision making of this patient, discussed the same with the dictator, and agree with the dictators assessment and plan as written, documented as a scribe. Based on total visit time, I have performed more than 50% of this visit. Objective - Vital Signs Vital signs: Vital Signs Temp 97.8 F 08/06/23 11:45 Pulse 65 08/06/23 11:45 Resp 16 08/06/23 11:45 BP 134/84 08/06/23 11:45 Pulse Ox 94 L 08/06/23 11:45 FiO2 Intake & Output 08/05/23 08/06/23 08/06/23 18:59 06:59 18:59 Weight 119.2 kg Other: Voiding Method Toilet Toilet # Voids 2 1 # Bowel Movements 1 2 - Labs CBC & Chem 7: 08/05/23 07:00 08/05/23 07:00 Labs: Microbiology - Last 24 Hours (Table) 08/04/23 22:30 Urine Culture - Final Urine,Clean Catch 08/03/23 20:26 Blood Culture - Preliminary Blood 08/03/23 20:26 Blood Culture - Preliminary Blood Assessment and Plan Time with Patient: Less than 30
[2023-08-06] MEDS: HYDROmorphone 0.5 MG/0.5 ML SYRINGE IVP PRN (16:02)
[2023-08-06 17:04] VITALS: RESP 18
[2023-08-07 08:17] VITALS: TEMP 98.3
--- NOTE | 2023-08-07 11:55 | P.PN ---
Subjective HISTORY OF PRESENT ILLNESS: This is a 68-year-old male with a past medical history significant for hyperlipidemia, peripheral vascular disease, and mild nonobstructive CAD. Patient used to follow in the office with Dr. Laureano but has not been seen since 2019. We have been asked to see the patient in consultation for arrhythmia. Patient examined at the bedside. Initially presented to the hospital with a chief complaint of abdominal pain and diarrhea. Patient was found to have a small bowel obstruction. Additionally, patient went into A-fib with RVR. He denies a history of atrial fibrillation. He was placed on IV Cardizem and subsequently converted to sinus mechanism. DIAGNOSTICS: - EKG reveals atrial flutter/tachycardia - Chest xray negative for acute process. - Laboratory data: WBC 5.6. Hemoglobin 13.3. Platelet count 178. Sodium 140. Potassium 3.8. BUN 25. Creatinine 0.76. Troponin negative x 1. TSH 3.590. - Current home cardiac medications include rosuvastatin 20 mg daily. - Most recent echocardiogram obtained in 2012 revealed normal EF - Cardiac catheterization history: 2019 revealing right dominant system. 35% stenosis of mid LAD. Normal filling pressures. No gradient across aortic valve. 08/06/2023 Patient examined this morning the bedside. Patient denies chest pain or pressure. He denies shortness of breath. Telemetry reveals sinus mechanism. Echocardiogram completed revealing ejection fraction 60 to 65% with trace TR. 08/07/2023 Patient examined this morning at bedside. Patient denies chest pain or pressure. He denies shortness of breath. Telemetry reveals sinus mechanism. Patient is tolerating oral intake. Vital signs are stable. PHYSICAL EXAM: VITAL SIGNS: Reviewed. GENERAL: Well-developed in no acute distress. HEENT: Head is normocephalic. Pupils are equal, round. Sclerae anicteric. Mucous membranes of the mouth are moist. Neck supple. No JVD or thyromegaly LUNGS: Respirations even and unlabored. Lungs essentially clear to auscultation bilaterally. HEART: Regular rate and rhythm. S1 and S2 heard. ABDOMEN: Soft. Nondistended. Nontender. EXTREMITIES: Normal range of motion. No clubbing or cyanosis. Peripheral pulses intact. No lower extremity edema NEUROLOGIC: Awake and alert. Oriented x 3. ASSESSMENT: Dusty pain with diarrhea Possible small bowel obstruction, small bowel follow-through with no evidence of small bowel obstruction noted History of small bowel obstruction and exploratory laparotomy with lysis of adhesions History of ventral hernia repair New onset paroxysmal atrial flutter/fibrillation with RVR Mild nonobstructive CAD History of peripheral vascular disease Hyperlipidemia PLAN: Continue current cardiac medications Continue telemetry monitoring Patient with isolated episode of atrial fibrillation/flutter which may be a result of his acute issues If patient has recurrent episodes of atrial flutter/fibrillation, will consider anticoagulation Patient is stable from a cardiac standpoint Further recommendations pending patient course Nurse practitioner note has been reviewed by physician. Signing provider agrees with the documented findings, assessment, and plan of care documented by WATER FITNESS INSTRUCTOR as a scribe. Objective - Vital Signs Vital signs: Vital Signs Temp 98.3 F 08/07/23 08:00 Pulse 71 08/07/23 08:00 Resp 18 08/07/23 08:00 BP 102/64 08/07/23 08:00 Pulse Ox 94 L 08/07/23 08:00 FiO2 Intake & Output 08/06/23 08/07/23 08/07/23 18:59 06:59 18:59 Intake Total 480 240 Balance 480 240 Intake: Oral 480 240 Other: Voiding Method Toilet Toilet Toilet # Voids 1 1 - Labs CBC & Chem 7: 08/05/23 07:00 08/05/23 07:00 Labs: Microbiology - Last 24 Hours (Table) 08/04/23 03:35 Stool Culture - Preliminary Stool 08/04/23 22:30 Urine Culture - Final Urine,Clean Catch 08/03/23 20:26 Blood Culture - Preliminary Blood 08/03/23 20:26 Blood Culture - Preliminary Blood
[2023-08-07 12:21] VITALS: BP 117/69; PULSE 67
[2023-08-07] MEDS ORDERED: SIMETHICONE 40 MG/0.6 ML DROPS 2,000 MG/30 ML BOTTLE PO SCH (13:00)
--- NOTE | 2023-08-07 13:48 | P.PN ---
Subjective Progress Note Date: 08/07/23 CHIEF COMPLAINT: Abdominal pain HISTORY OF PRESENT ILLNESS: Patient presented with abdominal pain and diarrhea. Small bowel follow-through was negative for bowel obstruction. Patient is currently afebrile. Patient has been eating a low fiber diet. He reports feeling a little bloated today. Denies any nausea or vomiting. Diarrhea has resolved. Preliminary stool culture result negative. Patient reports ambulating. He is sitting up at bedside chair. PHYSICAL EXAM: VITAL SIGNS: Reviewed. GENERAL: Well-developed in no acute distress. HEENT: No sclera icterus. Extraocular movements grossly intact. Moist buccal mucosa. Head is atraumatic, normocephalic. ABDOMEN: Soft. mildly distended. Nontender. NEUROLOGIC: Alert and oriented. Cranial nerves II through XII grossly intact. ASSESSMENT: 1. Abdominal pain with diarrhea likely secondary to viral gastroenteritis. No evidence of bowel obstruction on small bowel follow-through 2. Prior history of small bowel obstruction with exploratory laparotomy and lysis of adhesions 3. New onset paroxysmal atrial flutter/atrial fibrillation with RVR followed by cardiology 4. Coronary artery disease 5. History of peripheral vascular disease 6. Hyperlipidemia PLAN: -Patient can be discharged from surgical standpoint when medically cleared -Continue low fiber diet -No surgical intervention planned Physician Dish Cloth Inspector note has been reviewed by physician. Signing provider agrees with the documented findings, assessment, and plan of care. Objective - Vital Signs Vital signs: Vital Signs Temp 98.3 F 08/07/23 08:00 Pulse 67 08/07/23 11:59 Resp 18 08/07/23 11:59 BP 117/69 08/07/23 11:59 Pulse Ox 95 08/07/23 11:59 FiO2 Intake & Output 08/06/23 08/07/23 08/07/23 18:59 06:59 18:59 Intake Total 480 240 Balance 480 240 Intake: Oral 480 240 Other: Voiding Method Toilet Toilet Toilet # Voids 1 1 - Labs CBC & Chem 7: 08/05/23 07:00 08/05/23 07:00 Labs: Microbiology - Last 24 Hours (Table) 08/03/23 20:26 Blood Culture - Preliminary Blood 08/03/23 20:26 Blood Culture - Preliminary Blood 08/04/23 03:35 Stool Culture - Preliminary Stool 08/04/23 22:30 Urine Culture - Final Urine,Clean Catch
--- NOTE | 2023-08-07 14:53 | P.PN ---
Subjective Progress Note Date: 08/07/23 Principal diagnosis: Reason for follow-up is fever/small bowel obstruction Patient is a 68-year-old male with a past medical history significant for hyperlipidemia DVT basal cell skin cancer history of small bowel obstruction requiring exploratory laparotomy and lysis of adhesion and repair of ventral hernia presenting to the hospital for evaluation of fever and multiple episodes of diarrhea, patient did have a fever on presentation to the hospital CT abdominal pelvis with multiple fluid-filled dilated loops concerning for obstruction. On today's visit that is 08/07/2023,the patient denies any fever or any chills, patient is breathing comfortably on room air, the patient denies chest pain shortness of breath and no significant cough, patient did have improvement his abdominal pain denies any nausea no vomiting tolerating his diet and mentioned that he has stopped. Patient white count is 5.6, creatinine 0.76 stool culture pending blood culture negative so far Objective - Vital Signs Vital signs: Vital Signs Temp 98.3 F 08/07/23 08:00 Pulse 67 08/07/23 11:59 Resp 18 08/07/23 11:59 BP 117/69 08/07/23 11:59 Pulse Ox 95 08/07/23 11:59 FiO2 Intake & Output 08/06/23 08/07/23 08/07/23 18:59 06:59 18:59 Intake Total 480 598 Balance 480 598 Intake: Oral 480 598 Other: Voiding Method Toilet Toilet Toilet # Voids 1 1 - Exam GENERAL DESCRIPTION: An elderly male lying in bed in no distress RESPIRATORY SYSTEM: Unlabored breathing , decreased breath sounds at bases HEART: S1 S2 regular rate and rhythm , ABDOMEN: Soft , mild distention EXTREMITIES: No edema feet - Labs CBC & Chem 7: 08/05/23 07:00 08/05/23 07:00 Labs: Microbiology - Last 24 Hours (Table) 08/03/23 20:26 Blood Culture - Preliminary Blood 08/03/23 20:26 Blood Culture - Preliminary Blood 08/04/23 03:35 Stool Culture - Preliminary Stool 08/04/23 22:30 Urine Culture - Final Urine,Clean Catch Assessment and Plan (1) Fever Current Visit: Yes Status: Acute Code(s): R50.9 - FEVER, UNSPECIFIED SNOME D Code(s): 503095769 (2) Small bowel obstruction Current Visit: Yes Status: Acute Code(s): K56.69 - OTHER INTESTINAL OBSTRUCTION * DO NOT USE * SNOMED Code(s): 086131666 Plan: 1patient presented hospital with sepsis in this patient who did have fever tachycardia elevated white count was also likely abdominal with predominantly abdominal symptoms did have diarrhea but no antibiotic exposure stool for C. difficile is negative CT abdominal pelvis suggestive of bowel obstruction and will need to cover for the enteric gram-negative to be the likely pathogen 2-stool for C. difficile is negative stool culture currently pending 3-patient did have resolution of his fever white count is normal, surgery recommending no surgical intervention and the patient has shown clinical improvement we will consider short course of oral Ceftin and Flagyl on discharge this was discussed with the LINE OUT WORKER for admitting team working on discharge Dictation was produced using [employer] dictation software. please excuse any grammatical, word or spelling errors. Time with Patient: Less than 30
--- NOTE | 2023-08-09 22:14 | P.DS ---
Providers Date of admission: 08/03/23 20:18 Attending physician: Oxana Nguyen Consults: 08/04/23 09:04 Consult Physician Stat Consulting Provider: Trinh Lynn Consult Reason/Comments: sbo, ?partial Do you want consulting provider notified?: Yes 08/04/23 13:56 Consult Physician Routine Consulting Provider: Jessa Chan Consult Reason/Comments: infectious enterocolitis with family history Do you want consulting provider notified?: Yes 08/04/23 22:59 Consult Physician Stat Consulting Provider: Zan Quiroga Consult Reason/Comments: arrythmia Do you want consulting provider notified?: Already Contacted Primary care physician: Lurdes Swanson Hospital Course: Final Diagnosis -Abdominal pain and diarrhea from gastroenterocolitis with sepsis; ID following and on IV zosyn. Clinically improving. -Rule out partial small bowel obstruction, which patient underwent small bowel follow through which reveals no obstruction. -New onset atrial fibrillation/flutter, paroxysmal; converted to normal sinus rhythm; IV cardizem discontinued. -Hx hyperlipidemia -Hx of DVT -Gastroesophageal reflux disease -Hx of C.Dif colitis -Mild nonobstructive coronary artery disease -Hx of bowel obstruction with resection and lysis of adhesions Discharge Disposition Patient stable for discharge home. Recommended to advance diet as tolerated and to continue with supportive care. Follow up with your rehabilitation services aide in the office. Report any palpitations, heart racing to your providers. Patient to continue oral antibiotic therapy with oral flagyl, ceftin for the next 7 days. Has been started on low dose metoprolol. Repeat BMP in 2 to 3 days. Hospital Course This is a 68-year-old male with a past medical history significant for DVT, hyperlipidemia, peripheral vascular disease, and mild nonobstructive CAD, hx of bowel obstruction with prior resection and lysis of adhesions. Initially presented to the hospital with a chief complaint of abdominal pain and diarrhea. Patient was found to have a small bowel obstruction. CT abdominal pelvis with multiple fluid-filled dilated loops concerning for obstruction. Additionally, patient went into A-fib with RVR. He denies a history of atrial fibrillation. He was placed on IV Cardizem and subsequently converted to sinus mechanism. Echocardiogram reveals EF 60-65%, normal LV wall thickness, trace TR, no MR. Underwent small bowel follow through which reveals no obstruction. He is having multiple bowel movements. Also admits to fever and had sick contacts at home from out of state family. Likely patient has a viral gastroenterocolitis and rec ommended to continue with supportive care. Will be considered for anticoagulation if further episods of atrial fibrillation/flutter. Cleared by all consulations for discharge. Please see medication reconciliation for a list of current medications. Thank you for allowing us to participate in the care of this patient. The impression and plan of care has been dictated by Lizy Campoverde, Nurse Pr actitioner as directed. Dr. Gerald MD I have performed a history and physical examination and medical decision making of this patient, discussed the same with the dictator, and agree with the dicta tors assessment and plan as written, documented as a scribe. Based on total visit time, I have performed more than 50% of this visit. Patient Condition at Discharge: Stable Plan - Discharge Summary Discharge Rx Participant: No New Discharge Prescriptions: New Pantoprazole [Protonix] 40 mg PO DAILY #30 tab metroNIDAZOLE [Flagyl] 500 mg PO TID 7 Days #21 tab Metoprolol Tartrate [Lopressor] 25 mg PO BID #60 tab cefUROXime axetiL [Ceftin] 500 mg PO BID 7 Days #14 tab Continue Aspirin [Adult Low Dose Aspirin EC] 162 mg PO DAILY Fish Oil/Dha/Epa [Fish Oil 1,200 mg Fish Oil] 1 cap PO BID Cholecalciferol [Vitamin D3 (125 Mcg = 5000 Iu)] 250 mcg PO DAILY Lion José Supplement 1200 Mg 1,200 mg PO BID Acetaminophen Tab [Tylenol] 1,000 mg PO Q6HR PRN #30 tablet PRN Reason: Pain Ibuprofen [Motrin Ib] 600 mg PO Q8H PRN PRN Reason: Fever And/ Or Pain Tamsulosin HCl [Flomax] 0.4 mg PO DAILY Ascorbic Acid [Vitamin C] 6,000 mg PO DAILY Multivitamins, Thera [Multivitamin (formulary)] 1 tab PO DAILY Docusate [Colace] 100 mg PO BID polyethylene glycoL 3350 [Miralax] 17 gm PO DAILY Simethicone [Gas-X] 125 mg PO AC-TID PRN PRN Reason: GAS/BLOATING Rosuvastatin [Crestor] 20 mg PO DAILY Discharge Medication List Aspirin [Adult Low Dose Aspirin EC] 162 mg PO DAILY 08/01/20 [History] Tamsulosin HCl [Flomax] 0.4 mg PO DAILY 08/01/20 [History] Ascorbic Acid [Vitamin C] 6,000 mg PO DAILY 10/18/20 [History] Docusate [Colace] 100 mg PO BID 10/18/20 [History] Multivitamins, Thera [Multivitamin (formulary)] 1 tab PO DAILY 10/18/20 [History] polyethylene glycoL 3350 [Miralax] 17 gm PO DAILY 11/20/20 [History] Cholecalciferol [Vitamin D3 (125 Mcg = 5000 Iu)] 250 mcg PO DAILY 08/07/21 [History] Fish Oil/Dha/Epa [Fish Oil 1,200 mg Fish Oil] 1 cap PO BID 08/07/21 [History] Lion José Supplement 1200 Mg 1,200 mg PO BID 08/07/21 [History] Acetaminophen Tab [Tylenol] 1,000 mg PO Q6HR PRN #30 tablet 09/06/21 [Rx] Simethicone [Gas-X] 125 mg PO AC-TID PRN 10/28/21 [History] Ibuprofen [Motrin Ib] 600 mg PO Q8H PRN 08/03/23 [History] Rosuvastatin [Crestor] 20 mg PO DAILY 08/03/23 [History] Metoprolol Tartrate [Lopressor] 25 mg PO BID #60 tab 08/07/23 [Rx] Pantoprazole [Protonix] 40 mg PO DAILY #30 tab 08/07/23 [Rx] cefUROXime axetiL [Ceftin] 500 mg PO BID 7 Days #14 tab 08/07/23 [Rx] metroNIDAZOLE [Flagyl] 500 mg PO TID 7 Days #21 tab 08/07/23 [Rx] Follow up Appointment(s)/Referral(s): Roberto Laureano MD [STAFF PHYSICIAN] - 1 Week (Office staff to call patient with appt date and time) Lurdes Swanson MD [Primary Care Provider] - 08/12/23 11:00 am Jessa Chan MD [STAFF PHYSICIAN] - 08/20/23 1:45 pm Ambulatory/Diagnostic Orders: Basic Metabolic Panel [LAB.AMB] Time Frame: 3 Days, Location: None Selected Patient Instructions/Handouts: Bowel Obstruction (DC) Activity/Diet/Wound Care/Special Instructions: Follow up with your rehabilitation services aide in the office Report any palpitations, heart racing to your providers. Advance diet as tolerated Discharge Disposition: HOME SELF-CARE
== END 2023-08-07 15:23 | disposition home or self-care (01) | DRG 872 ==
LOC: EC 13:49 → 4SSUR 20:18 → 3SCARD 21:18
PROVIDERS: ADMIT Hospitalist; ATTEND Hospitalist
PROC: 3E033RZ Introduction of Antiarrhythmic into Peripheral Vein, Percutaneous Approach (ICD-10-PCS; 2023-08-04)
PROC: 0D9670Z Drainage of Stomach with Drainage Device, Via Natural or Artificial Opening (ICD-10-PCS; principal; 2023-08-05)
DX: A41.9 Sepsis, unspecified organism (principal); I48.92 Unspecified atrial flutter; A09 Infectious gastroenteritis and colitis, unspecified; I11.9 Hypertensive heart disease without heart failure; I73.9 Peripheral vascular disease, unspecified; I48.0 Paroxysmal atrial fibrillation; E87.5 Hyperkalemia; E78.5 Hyperlipidemia, unspecified; K44.9 Diaphragmatic hernia without obstruction or gangrene; K21.9 Gastro-esophageal reflux disease without esophagitis; I25.10 Atherosclerotic heart disease of native coronary artery without angina pectoris; G89.29 Other chronic pain; M54.9 Dorsalgia, unspecified; K59.00 Constipation, unspecified; M72.2 Plantar fascial fibromatosis; Z79.82 Long term (current) use of aspirin; Z79.899 Other long term (current) drug therapy; Z86.718 Personal history of other venous thrombosis and embolism; Z86.19 Personal history of other infectious and parasitic diseases; Z86.16 Personal history of COVID-19; Z87.01 Personal history of pneumonia (recurrent); Z85.828 Personal history of other malignant neoplasm of skin; Z88.5 Allergy status to narcotic agent
CPT/HCPCS: 36415; 71045; 71046; 74018; 74177; 74250; 80048; 80051; 80053; 81003; 82272; 83605; 83735; 84443; 84484; 85025; 85610; 85730; 86850; 86900; 86901; 87040; 87045; 87046; 87086; 87324; 87328; 87329; 87636; 93306; 96361; 96374; 96375; 99285

== ENCOUNTER → 2024-02-06 | Outpatient (CLI) | payer MEDICARE ==
--- NOTE | 2024-02-06 16:43 | MR ---
EXAMINATION TYPE: MR lumbar spine wo con DATE OF EXAM: 02/06/2024 COMPARISON: Lumbar spine radiograph 12/22/2023, CT abdomen pelvis 08/03/2023 HISTORY: low back pain. TECHNIQUE: Multiplanar, multisequence images of the lumbar spine were acquired without IV contrast. FINDINGS: The lumbar vertebral bodies do have preserved heights and alignment. Type 1 Modic changes involving the endplates of the L2-L3 disc. Prominent Schmorl's node involving the inferior endplate o f the T12 vertebral body without surrounding edema. Multilevel disc desiccation is present. The conu s medullaris and the distal spinal cord do appear unremarkable with regards to their signal intensity and morphology. Few sacral Tarlov cyst. T12-L1: No significant neural foraminal or central canal stenosis. L1-L2: Minimal broad-based disc bulge without significant central canal stenosis. Bilateral facet en largement without significant neural foraminal stenosis. L2-L3: Broad-based disc bulge is identified with annular fissure. The spinal canal is minimally narr owed. Neural canals are minimally narrowed bilaterally. L3-L4: Broad-based disc bulge is identified with associated enlargement of the facet joints. The spi nal canal remains patent. Neural canals are minimally narrowed bilaterally. L4-L5: Broad-based disc bulge is identified with associated enlargement of the facet joints. The spi nal canal remains patent. Neural canals are mildly narrowed bilaterally. L5-S1: Right extra foraminal zone right disc bulge with caudal extrusion. No central canal or neural foraminal stenosis. Other findings: Right renal T2 hyperintense cysts corresponding to prior CT. IMPRESSION: 1. Multilevel disc degeneration and facet arthropathy as described above. No significant central bautista l or neural foraminal stenosis. 2. L5-S1 right extraforaminal zone disc bulge with caudal extrusion. No significant central canal or neural foraminal stenosis at this level. [facility], , 02/06/2024 4:41 PM
== END | disposition home or self-care (01) ==
LOC: RADMRIMAIN 14:40
PROVIDERS: ATTEND Family Medicine
DX: M54.51 Vertebrogenic low back pain (principal); M54.17 Radiculopathy, lumbosacral region; M51.369 Other intervertebral disc degeneration, lumbar region without mention of lumbar back pain or lower extremity pain
CPT/HCPCS: 72148

== ENCOUNTER → 2024-05-06 | Outpatient (CLI) | payer OTHER ==
[2024-05-06 12:53] VITALS: BP 125/66; PULSE 74; RESP 16; TEMP 97.7
--- NOTE | 2024-05-06 15:00 | P.PAINPG ---
Objective - Vital Signs Vital signs: Intake & Output 05/05/24 05/06/24 05/06/24 18:59 06:59 18:59 Weight 117.934 kg PQRS Measure Charge Sheet Comment: HISTORY OF PRESENT ILLNESS: A 69 yr old male as a referral from [facility] presents today w severe and chronic LBP > 1 yr secondary to radiculopathy, spondylosis and facet arthropathy without myelopathy for evaluation. Pt states pain level is provoked at 7 /10 in intensity, constant, localized in the lower lumbar, predominantly axial, achy in character w occasional shooting pain towards the LEs, L> R. Pain is provoked by chiropractic treatments, bearing down or eating. Pain is alleviated by PT x 4 wks which ended in Feb 2024, physician guided home stretches daily since Feb 2024, heat, ice, topical BioFreeze, CBD Oil, repositioning and rest . Oswestry axial pain score at 33. PMH: OA, Basal Skin CA, Angina, DVT, GERD, Hyperlipidemia, Hx SIRS, Hx HH, Hx SBO PSH: Adenoidectomy, Amanda Fundoplication, Bowel Resection, Lysis of Abd Adhesions, HH Repair, Colonoscopy/ EGDs w Dilatation, T&A at age 1 & 12 yrs, Cholecystectomy, Hernia Repair, Tonsillectomy SH: Never smoker, No ETOH abuse, Occ Cannabis use FH: Fa- Colon, Liver & Prostate CA. Mo- Colon CA, COPD. Bro- CA All: See list Meds: See list REVIEW OF ORGAN SYSTEMS: CONSTITUTIONAL: No fevers or chills. No recent weight loss. NEUROLOGICAL: + numbness and tingling along the distal extremities. No seizure disorders or headaches. MUSCULOSKELETAL: + pain PSYCHIATRIC: Denies current depression or suicidal thoughts. Physical Examinations : Constitutional : Cooperative , not in acute distress . Neurologic : Cranial nerve II to XII intact. No focal neurological deficits. Psychiatric : alert & oriented x 3. Matching mood & appropriate affect. Judgment & insight intact. Musculoskeletal : Cervical Spine Motor strength in the deltoid and biceps: Normal right side. Normal Left side Motor strength biceps and the wrist extensors: Normal right side . Normal left side Motor strength in the triceps muscle: Normal right side. Normal left side Deep tendon reflexes: Normal at the biceps. Normal at Brachioradialis. Normal at triceps Vertebral body tenderness to deep palpation over Cervical facet loading test: positive bilaterally Spurling test: positive bilaterally Neck distraction test: positive bilaterally Otoniel sign: positive bilaterally Lumbar spine Motor strength lower extremities ,thigh and legs 5/5 Right side , 5/5 Left side Deep tendon reflexes : Normal Knee Jerk. Normal Ankle Jerk Vertebral body tenderness over L5 Hawkins Test positive Lumbar facet Loading Test: positive Right / positive Left Range of motion of the lumbar spine Flexion 30 degrees, extension 10 degrees Straight Leg Raise test: Left> Right positive at 30 degrees Foster test: positive right / positive left. Severe tenderness over the Sacroiliac joint on the Right / Left sides Gaenslen test: positive bilaterally Seated flexion test: positive bilaterally. Sacral spine : Severe tenderness over the Sacroiliac joint: right side / left side Range of motion: Flexion of the lumbar spine <60 degrees Range of motion: Extension of the lumbar spine <20 degrees Gaenslen's Test positive Foster test: positive right side / left side Thigh Thrust Test Sacral Thrust Test Imaging: MRI non contrast lumbar spine from 02/06/24 reviewed Assessment/ Plan : L2-L5 radiculopathy, Facet arthropathy Recommendation of KENDELL L5-S1 #1. Would also benefit from L TFESI L4-L5. Risks, benefits of procedure discussed and patient verbalized understanding. Admits to anti- coagulant use or medical history of diabetes. Protocol for discontinuation/ continuation of medications lisbeth procedure discussed. Minimal anesthesia provided, if clinically indicated, consisting of Versed and Fentanyl. All questions answered. I have spent greater than 30 minutes on patient care today. Dr Frausto was available by phone for the evaluation of this patient. The time was used to review the medical records including relevant urine studies and Prescription history (MAPs), review of the available imaging, evaluation and examination of the patient, coordination of care with the medical staff and if applicable referring physicians, as well as creation of the medical record - Pain Location Lower Back Non-Pharmacological Interventions: Binder, Position/Reposition Pharmacological Interventions: Discuss Pain Med Options PQRS Narrative: Smoking Status Never smoker Home Medications: Ambulatory Orders Aspirin [Adult Low Dose Aspirin EC] 81 mg PO DAILY 08/01/20 Tamsulosin HCl [Flomax] 0.4 mg PO DAILY 08/01/20 Ascorbic Acid [Vitamin C] 3,000 mg PO DAILY 10/18/20 Docusate [Colace] 100 mg PO DAILY 10/18/20 Multivitamins, Thera [Multivitamin (formulary)] 1 tab PO DAILY 10/18/20 polyethylene glycoL 3350 [Miralax] 17 gm PO DAILY 11/20/20 Cholecalciferol [Vitamin D3 (125 Mcg = 5000 Iu)] 250 mcg PO DAILY 08/07/21 Fish Oil/Dha/Epa [Fish Oil 1,200 mg Fish Oil] 1 cap PO BID 08/07/21 Lion José Supplement 1200 Mg 1,200 mg PO BID 08/07/21 Acetaminophen Tab [Tylenol] 1,000 mg PO Q6HR PRN #30 tablet 09/06/21 Simethicone [Gas-X] 125 mg PO AC-TID PRN 10/28/21 Ibuprofen [Motrin Ib] 600 mg PO Q8H PRN 08/03/23 Rosuvastatin [Crestor] 20 mg PO DAILY 08/03/23 Pantoprazole [Protonix] 40 mg PO DAILY #30 tab 08/07/23 Apixaban [Eliquis] 5 mg PO BID 05/06/24 L.acidoph,Paracasei, B.lactis [Probiotic] 1 each PO DAILY 05/06/24 Controlled Substance Measures - Controlled Substance Measures Is patient prescribed a controlled substance at discharge?: Yes When asked, does pt state using other controlled substances?: No If prescribed controlled substance>3 days was MAPS reviewed?: Prescribed <3 Days
== END ==
LOC: PNWHC3 11:59
PROVIDERS: ATTEND Specialist
DX: M54.16 Radiculopathy, lumbar region (principal); Z88.5 Allergy status to narcotic agent
CPT/HCPCS: 99211

== ENCOUNTER 2024-06-01 12:33 | Day surgery (SDC) | payer OTHER ==
[2024-05-28 11:02] VITALS: BMI 35.2
[2024-06-01 13:13] VITALS: RESP 18; TEMP 97.4
[2024-06-01 13:18] LABS: Glucose,Whole Blood 110 mg/dL (70-110)
[2024-06-01] MEDS ORDERED: methylPREDNISolone ACETATE 80 MG/ML 1 ML VIAL ONE (13:22)
[2024-06-01] MEDS ORDERED: IOPAMIDOL M200 10 ML VIAL ONE (13:22)
--- NOTE | 2024-06-01 13:33 | P.PCN ---
Date of Procedure: 06/01/24 Procedure(s) Performed: PREOPERATIVE DIAGNOSIS: 1- Lumbar Degenerative Disc Diseases 2-Lumbar spondylosis with Facet arthropathy without myelopathy. 3-lumbar spinal stenosis 4-lumbar radiculopathy POSTOPERATIVE DIAGNOSIS: 1-lumbar degenerative disc disease. 2-lumbar spondylosis with facet arthropathy without myelopathy. 3-lumbar spinal stenosis. 4-lumbar radiculopathy PROCEDURE 1. Lumbar epidural steroid injection under fluoroscopic guidance at the L5-S1 level. (Fluoroscopy imaging was available in radiology department) 2. Lumbar epidurogram. ANESTHESIA: Lidocaine 1% 3 and then only. EBL: Minimal PROCEDURE INDICATION: The patient with low back pain and radiculitis symptoms unresponsive to conservative treatment. Fluoroscopy was used to optimize visualization of the needle placement and to maximize safety. PROCEDURE DESCRIPTION / TECHNIQUE: The patient was seen and identified in the preoperative area. Risks, benefits, complications including but not limited to infections ,bleeding ,allergic reaction to the medications ,nerve damage and not complete pain releife , and alternatives were discussed with the patient. The patient agreed to proceed with the procedure and signed the consent, and vital signs were stable. Patient was taken to the OR and time out was completed. The patient was placed in the prone position on procedure table and a pillow was placed under the abdomen to reduce lumbar lordosis. The lumbosacral area was prepped and draped in the usual sterile fashion.ere closely monitored during the procedure. Vital signs was monitered during the entire procedure. Using anterior-posterior fluoroscopy, the L5-S1 interlaminar space was identified and the skin over this site was marked and then infiltrated with 1% lidocaine subcutaneously. Subsequently, a 20-gauge Tuohy epidural needle was inserted and advanced toward the epidural space using the ``Loss of resistance technique and guided by AP and lateral fluoroscopy. The correct needle position in the epidural space was verified with the injection of 2 mL of the water soluble contrast dye Isovue 200 contrast and observing an excellent epidurogram with the epidural spread of the dye, after negative aspiration for blood and CSF and in the absence of paresthesias. Again after negative aspiration, a 6 ml mixture containing 40 mg of Depo-medrol ( Preservetive Free ), and 2 ml of preservative free Normal Saline, and 2 ml of preservative free lidocaine 1% solution was injected and a washout of epidurogram was seen. Needle was withdrawn intact, skin was cleansed, and bandages were applied. COMPLICATIONS: None DISPOSITION / PLANS: The patient was placed in a supine position and transferred to the recovery area in a stable condition for observation. There was no evidence of lower extremity motor or sensory deficit after the procedure. Patient was discharged from the recovery room after meeting discharge criteria. Home discharge instructions were given to the patient by the staff. The patient was reexamined prior to discharge. The patient will schedule a follow up in the clinic in 2-4 weeks. ELIQUIS last dose was taken more than 3 days ago
--- NOTE | 2024-06-01 13:41 | FL ---
Intraoperative/procedural fluoroscopic services were provided for lumbar epidural steroid injection. Total fluoroscopy time is 3.3 seconds with a total of 3 submitted images to PACS. Total DAP 0.18742 m Gym2. Please see the operative note for further details. [facility], , 06/01/2024 1:39 PM
[2024-06-01 14:00] VITALS: BP 128/79; PULSE 77
== END 2024-06-01 14:01 | disposition home or self-care (01) ==
LOC: ORPAIN 12:33
PROVIDERS: ATTEND Specialist
DX: M51.16 Intervertebral disc disorders with radiculopathy, lumbar region (principal); M47.26 Other spondylosis with radiculopathy, lumbar region; M48.061 Spinal stenosis, lumbar region without neurogenic claudication
CPT/HCPCS: 62323; Q9966; J1010

== ENCOUNTER → 2024-06-29 | Outpatient (CLI) | payer OTHER ==
[2024-06-29 14:42] LABS: African American GFR (CKD) >90 (>60 ml/min/1.73 sqM); Blood Urea Nitrogen 15 mg/dL (9-20); Non-African American GFR(CKD) >90 (>60 ml/min/1.73 sqM)
--- NOTE | 2024-06-29 15:55 | CT ---
CT thorax without contrast with without contrast HISTORY: Solitary pulmonary nodule follow-up COMPARISON: CTA chest dated 03/30/2015. TECHNIQUE: Multiple axial images are obtained through the thorax without IV contrast material. FINDINGS: There are 2 less than 3 mm nodules in the right lung. There are no left lung nodules. There is no airspace consolidation or abnormal interstitial density. There is no mediastinal, hilar or axillary adenopathy. The heart and great vessels chest are normal in size. There is no pleural effusion or pneumothorax. Limited scanning through the abdomen reveals liver steatosis. No focal osseous lesions are seen. IMPRESSION: 1. 2 sub-3 mm nodules in the right lung which are likely benign. 2. No acute cardiopulmonary disease. 3. Liver steatosis. [facility], , 06/29/2024 3:53 PM
== END | disposition home or self-care (01) ==
LOC: RADCTMAIN 13:47
PROVIDERS: ATTEND Family Medicine
DX: R91.8 Other nonspecific abnormal finding of lung field (principal); K76.0 Fatty (change of) liver, not elsewhere classified
CPT/HCPCS: 82565; 84520; 71270; 36415; Q9967

== ENCOUNTER → 2024-07-01 | Outpatient (CLI) | payer MEDICARE, OTHER ==
[2024-07-01 14:00] VITALS: BP 128/74; PULSE 78; RESP 19; TEMP 96.8
--- NOTE | 2024-07-01 15:03 | P.PAINPG ---
PQRS Measure Charge Sheet Comment: HISTORY OF PRESENT ILLNESS: A 69 yr old male presents today w severe and chronic LBP > 1 yr secondary to radiculopathy, spondylosis and facet arthropathy without myelopathy for evaluation s/p KENDELL L5-S1 #1. Pt states he experienced 25 % pain relief x 4 wks s/p procedure. Pt states pain level is provoked at 7 /10 in intensity, constant, localized in the lower lumbar, predominantly axial, throbbing in character without shooting pain Pain is provoked by chiropractic treatments, bearing down or eating. Pain is alleviated by PT x 4 wks which ended in Feb 2024, physician guided home stretches daily since Feb 2024, heat, ice, topical, repositioning and rest. Interventional procedures include KENDELL L5-S1 x1 Medications include BioFreeze, CBD Oil, Occ Cannabis use REVIEW OF ORGAN SYSTEMS: CONSTITUTIONAL: No fevers or chills. No recent weight loss. NEUROLOGICAL: + numbness and tingling along the distal extremities. No seizure disorders or headaches. MUSCULOSKELETAL: + pain PSYCHIATRIC: Denies current depression or suicidal thoughts. Physical Examinations : Constitutional : Cooperative , not in acute distress . Neurologic : Cranial nerve II to XII intact. No focal neurological deficits. Psychiatric : alert & oriented x 3. Matching mood & appropriate affect. Judgment & insight intact. Musculoskeletal : Cervical Spine Motor strength in the deltoid and biceps: Normal right side. Normal Left side Motor strength biceps and the wrist extensors: Normal right side . Normal left side Motor strength in the triceps muscle: Normal right side. Normal left side Deep tendon reflexes: Normal at the biceps. Normal at Brachioradialis. Normal at triceps Vertebral body tenderness to deep palpation over Cervical facet loading test: positive bilaterally Spurling test: positive bilaterally Neck distraction test: positive bilater ally Otoniel sign: positive bilaterally Lumbar spine Motor strength lower extremities ,thigh and legs 5/5 Right side , 5/5 Left side Deep tendon reflexes : Normal Knee Jerk. Normal Ankle Jerk Vertebral body tenderness over L5 Hawkins Test positive Lumbar facet Loading Test: positive Right / positive Left L5_S1 Range of motion of the lumbar spine Flexion 30 degrees, extension 10 degrees Straight Leg Raise test: Left> Right positive at 30 degrees Foster test: positive right / positive left. Severe tenderness over the Sacroiliac joint on the Right / Left sides Gaenslen test: positive bilaterally Seated flexion test: positive bilaterally. Sacral spine : Severe tenderness over the Sacroiliac joint: right side / left side Range of motion: Flexion of the lumbar spine <60 degrees Range of motion: Extension of the lumbar spine <20 degrees Gaenslen's Test positive Foster test: positive right side / left side Thigh Thrust Test Sacral Thrust Test Imaging: MRI non contrast lumbar spine from 02/06/24 reviewed Assessment/ Plan : L2-L5 radiculopathy, Facet arthropathy Recommendation of RONALDO MBZahira L5-S1 #1. Risks, benefits of procedure discussed and patient verbalized understanding. Admits to anti- coagulant use or medical history of diabetes. Protocol for discontinuation/ continuation of medications lisbeth procedure discussed. Minimal anesthesia provided, if clinically indicated, consisting of Versed and Fentanyl. All questions answered. I have spent greater than 30 minutes on patient care today. Dr Frausto was available by phone for the evaluation of this patient. The time was used to review the medical records including relevant urine studies and Prescription history (MAPs), review of the available imaging, evaluation and examination of the patient, coordination of care with the medical staff and if applicable referring physicians, as well as creation of the medical record - Pain Location Lower Back Non-Pharmacological Interventions: Heat, Ice Pharmacological Interventions: Medication, Topical Medication PQRS Narrative: Smoking Status Never smoker Hx Alcohol Use (MH) No Home Medications: Ambulatory Orders Aspirin [Adult Low Dose Aspirin EC] 81 mg PO DAILY 08/01/20 Tamsulosin HCl [Flomax] 0.4 mg PO DAILY 08/01/20 Rosuvastatin [Crestor] 20 mg PO DAILY 08/03/23 Apixaban [Eliquis] 5 mg PO BID 05/06/24 Pantoprazole [Protonix] 40 mg PO DAILY 30 Days #30 tab 06/19/24 diazePAM [Valium] 5 mg PO DAILY 1 Days #2 tab 07/01/24 Controlled Substance Measures - Controlled Substance Measures Is patient prescribed a controlled substance at discharge?: Yes When asked, does pt state using other controlled substances?: No If prescribed controlled substance>3 days was MAPS reviewed?: Prescribed <3 Days
== END ==
LOC: PNWHC3 13:37
PROVIDERS: ATTEND Specialist
DX: M47.26 Other spondylosis with radiculopathy, lumbar region (principal); F12.90 Cannabis use, unspecified, uncomplicated; Z88.5 Allergy status to narcotic agent
CPT/HCPCS: 99212

== ENCOUNTER 2024-07-20 11:46 | Day surgery (SDC) | payer OTHER ==
[2024-07-19 10:24] VITALS: BMI 35.2
[~2024-07-20 11:46] MED LIST changes: -LIDOCAINE 1% (10MG/ML) FOR IV START INTRADERMA PRN
[2024-07-20] MEDS: IV FLUID CONTINUATION 1,000 ML IV ONE ×2 (12:12→13:06)
[2024-07-20 12:35] VITALS: RESP 16; TEMP 97.4
[2024-07-20] MEDS ORDERED: fentaNYL (PF) 50 MCG/ML 2 ML AMP ONE (12:47)
[2024-07-20] MEDS ORDERED: MIDAZOLAM 2 MG/2 ML VIAL ONE (12:47)
[2024-07-20] MEDS ORDERED: ROPIVACAINE 5MG/ML 20ML VIAL ONE (12:47)
--- NOTE | 2024-07-20 13:01 | P.PCN ---
Date of Procedure: 07/20/24 Procedure(s) Performed: PREOPERATIVE DIAGNOSIS : 1- Lumbar spondylosis with Facet Arthropathy with out myelopathy . 2- Lumber degenerative disc disease POSTOPERATIVE DIAGNOSIS: 1- Lumbar spondylosis with Facet Arthropathy without myelopathy . 2- Lumber degenerative disc disease PROCEDURE: Diagnostic bilateral L3 , L4 , and L5 medial branch block under fluoroscopy guidance(fluoroscopy images available in the radiology Department ) ( To target the facet joint between Bilateral L4-5 , and L5- S1 )#1st ANESTHESIA: moderate sedation with intravenous Versed 1 mg and Fentanyl 50 mcg.(Sedation start time 12:47, end time 12:57 ) EBL: Minimal COMPLICATION: None PROCEDURE INDICATION: Chronic low back pain secondary to Facet arthropathy unresponsive to conservative treatment. PROCEDURE DESCRIPTION: the patient was seen and identified in the preop holding area , risks and benefits and possible complications of the procedure and alternative were discussed with the patient, and the patient agreed to proceed with the procedure and signed the consent and vital signs monitored during the procedure and fluoroscopy was used to maximize the benefit and accuracy of the needle placement, and sedation was given to decrease patient anxiety, patient was taken to the procedure room and placed in prone position vital signs monitored in the back prepped with chlorhexidine X3 then under strict sterile technique using a right oblique fluoroscopy ,the junction of the transverse process and the superior articulating process of the right L3 , L4 , and L5 vertebra which corresponding to the fluoroscopy image of the eye of the Toby dog on the block side for the medial branches and subsequently , after local infiltration of skin and subcu tissuies with Ropivacaine 0.5 % , one mL at each level ,then 22-gauge 5 inches long Quincke-type needles , 3 needle was used , each one of them placed at the junction of the base of the transverse process and the superior articular process at the appropriate level, and the needle was advanced until the periosteum contacted, needle placement confirmed with AP oblique and lateral view and after appropriate needle placement confirmed, and after negative aspiration for heme and CSF and there was no par esthesia 1-1/2 mL of Ropivacaine 0.5% used , then half mL injected at each level after negative aspiration the needle subsequently removed and the same procedure repeated for the left side at left side at L3 , L4 and L5 levels. At the end of the procedure and the needles removed and a bandage applied after the skin was cleaned the cleaning solution patient taken to recovery room in stable condition and monitors in the recovery room for 20-30 minutes and discharged home in stable condition after discharge criteria met and patient will follow up with the pain clinic in 2-4 weeks
--- NOTE | 2024-07-20 13:09 | FL ---
EXAMINATION TYPE: FL guided pain mgmt statistic DATE OF EXAM: 07/20/2024 1:04 PM COMPARISON: Pre Operative Images if available both CT/MRI or plain film CLINICAL INDICATION: Male, 69 years old with history of FACET BLOCK DAVID LUMB; TECHNIQUE: FL guided pain mgmt statistic, multiple fluoroscopic images provided for procedure. DAP: 0.62419 mGym2 Gycm2 uGym2 cGycm2 or equivalent. FINDINGS: Fluoroscopic images during injection for pain management demonstrate multilevel degeneration changes throughout the spine. No evidence for fracture. No acute process identified. IMPRESSION: 1. No evidence for intraoperative complication. 2. Please see the operative/procedural note for further details. [facility], , 07/20/2024 1:06 PM
[2024-07-20 13:33] VITALS: BP 130/85; PULSE 66
== END 2024-07-20 13:51 ==
LOC: ORPAIN 11:46
PROVIDERS: ATTEND Specialist
DX: M47.816 Spondylosis without myelopathy or radiculopathy, lumbar region (principal); G89.29 Other chronic pain
CPT/HCPCS: 64493; J2250; J3010; J2795; 99152

== ENCOUNTER → 2024-08-05 | Outpatient (CLI) | payer OTHER ==
[2024-08-05 13:24] VITALS: BP 132/79; PULSE 99; RESP 16; TEMP 97.5
--- NOTE | 2024-08-05 14:24 | P.PAINPG ---
Objective - Vital Signs Vital signs: Vital Signs Temp 97.5 F L 08/05/24 13:21 Pulse 99 08/05/24 13:21 Resp 16 08/05/24 13:21 BP 132/79 08/05/24 13:21 Pulse Ox 99 08/05/24 13:21 FiO2 PQRS Measure Charge Sheet Mode of Arrival: Ambulatory Comment: HISTORY OF PRESENT ILLNESS: A 69 yr old male w at side presents today w severe and chronic LBP > 1 yr secondary to radiculopathy, spondylosis and facet arthropathy without myelopathy for evaluation s/p BL MBB L5-S1 #1. Pt states he experienced 0 % pain relief s/p procedure. Pt states pain level is provoked at 7 /10 in intensity, constant, localized in the lower lumbar, predominantly axial, throbbing in character without shooting pain Pain is provoked by chiropractic treatments, bearing down or eating. Pain is alleviated by PT x 4 wks which ended in Feb 2024, physician guided home stretches daily since Feb 2024, heat, ice, topical, repositioning and rest. Interventional procedures include KENDELL L5-S1 x1, BL MBB L5-S1 x1 Medications include BioFreeze, CBD Oil, Occ Cannabis use REVIEW OF ORGAN SYSTEMS: CONSTITUTIONAL: No fevers or chills. No recent weight loss. NEUROLOGICAL: + numbness and tingling along the distal extremities. No seizure disorders or headaches. MUSCULOSKELETAL: + pain PSYCHIATRIC: Denies current depression or suicidal thoughts. Physical Examinations : Constitutional : Cooperative , not in acute distress . Neurologic : Cranial nerve II to XII intact. No focal neurological deficits. Psychiatric : alert & oriented x 3. Matching mood & appropriate affect. Judgment & insight intact. Musculoskeletal : Cervical Spine Motor strength in the deltoid and biceps: Normal right side. Normal Left side Motor strength biceps and the wrist extensors: Normal right side . Normal left side Motor strength in the triceps muscle: Normal right side. Normal left side Deep tendon reflexes: Normal at the biceps. Normal at Brachioradialis. Normal at triceps Vertebral body tenderness to deep palpation over Cervical facet loading test: positive bilaterally Spurling test: positive bilaterally Neck distraction test: positive bilaterally Otoniel sign: positive bilaterally Lumbar spine Motor strength lower extremities ,thigh and legs 5/5 Right side , 5/5 Left side Deep tendon reflexes : Normal Knee Jerk. Normal Ankle Jerk Vertebral body tenderness over L5 Hawkins Test positive Lumbar facet Loading Test: positive Right / positive Left L5-S1 Range of motion of the lumbar spine Flexion 30 degrees, extension 10 degrees Straight Leg Raise test: Left> Right positive at 30 degrees Foster test: positive right / positive left. Severe tenderness over the Sacroiliac joint on the Right / Left sides Gaenslen test: positive bilaterally Seated flexion test: positive bilaterally. Sacral spine : Severe tenderness over the Sacroiliac joint: right side / left side Range of motion: Flexion of the lumbar spine <60 degrees Range of motion: Extension of the lumbar spine <20 degrees Gaenslen's Test positive Foster test: positive right side / left side Thigh Thrust Test Sacral Thrust Test Imaging: MRI non contrast lumbar spine from 02/06/24 reviewed Assessment/ Plan : L2-L5 radiculopathy, Facet arthropathy Recommendation of follow up w Dr Larose to explore additional treatment options. Short course Langley 10/325mg #18 NR. Do not take w Cannabis use. Use, side effects, adverse reactions, safe storage discussed. All questions answered. I have spent greater than 30 minutes on patient care today. Dr Frausto was available by phone for the evaluation of this patient. The time was used to review the medical records including relevant urine studies and Prescription history (MAPs), review of the available imaging, evaluation and examination of the patient, coordination of care with the medical staff and if applicable referring physicians, as well as creation of the medical record - Pain Location Bilateral Lower Back Non-Pharmacological Interventions: Inactivity, Physical Therapy, Position/Reposition, Sitting Pharmacological Interventions: Block, Epidural, PRN Medication, Topical Medication PQRS Narrative: Smoking Status Never smoker Blood Pressure 132/79 Pain Intensity [Bilateral 6 Lower Back] Scale Used Numeric (1 - 10) Hx Alcohol Use (MH) No Home Medications: Ambulatory Orders Aspirin [Adult Low Dose Aspirin EC] 81 mg PO DAILY 08/01/20 Tamsulosin HCl [Flomax] 0.4 mg PO DAILY 08/01/20 Rosuvastatin [Crestor] 20 mg PO DAILY 08/03/23 Apixaban [Eliquis] 5 mg PO BID 05/06/24 Pantoprazole [Protonix] 40 mg PO DAILY 30 Days #30 tab 06/19/24 HYDROcodone/APAP 10-325MG [Langley 10-325] 1 tab PO Q4HR PRN 3 Days #18 tab 08/05/24 Controlled Substance Measures - Controlled Substance Measures Is patient prescribed a controlled substance at discharge?: Yes When asked, does pt state using other controlled substances?: No If prescribed controlled substance>3 days was MAPS reviewed?: Prescribed <3 Days
== END ==
LOC: PNWHC3 12:47
PROVIDERS: ATTEND Specialist
DX: M47.26 Other spondylosis with radiculopathy, lumbar region (principal); Z88.5 Allergy status to narcotic agent
CPT/HCPCS: 99211

== ENCOUNTER → 2024-10-08 | Outpatient (CLI) | payer OTHER ==
--- NOTE | 2024-10-08 14:36 | MR ---
MRI CERVICAL SPINE: CLINICAL HISTORY: Neck and back pain x 6 mos, no trauma. Neck and back pain x 6 mos, no trauma. TECHNIQUE: Multiplanar, multisequence imaging of the cervical spine is performed without IV contrast. COMPARISON: CT cervical spine June 2024 FINDINGS: Sagittal images of the cervical spine show the craniocervical junction to appear within nor mal limits. The cervical and upper thoracic spinal cord is normal in course, caliber, and signal. V ertebral alignment is anatomic. The vertebral body and intravertebral disk heights are normal. The bone marrow signal intensity is within normal limits. Axial images show C2-C3 level to appear within normal limits. Axial images at C3-C4 levels of broad-based right paracentral disc protrusion effacing the anterolate ral thecal sac and causing mild left greater than right bilateral neural foraminal narrowing. Axial images at remaining cervical levels appear within normal limits. IMPRESSION: Posterior disc herniation at C3-C4 level otherwise unremarkable study. [facility], , 10/08/2024 2:34 PM
== END | disposition home or self-care (01) ==
LOC: RADMRIMAIN 12:59
PROVIDERS: ATTEND Orthopaedic Surgery
DX: M47.812 Spondylosis without myelopathy or radiculopathy, cervical region (principal); M50.21 Other cervical disc displacement, high cervical region
CPT/HCPCS: 72141

== ENCOUNTER → 2024-11-29 | Outpatient (CLI) | payer OTHER ==
[2024-11-29 09:41] VITALS: BP 123/77; PULSE 68; RESP 16; TEMP 97.2
--- NOTE | 2024-11-29 13:15 | P.PAINPG ---
Objective - Vital Signs Vital signs: Vital Signs Temp 97.2 F L 11/29/24 09:30 Pulse 68 11/29/24 09:30 Resp 16 11/29/24 09:30 BP 123/77 11/29/24 09:30 Pulse Ox 94 L 11/29/24 09:30 FiO2 Intake & Output 11/28/24 11/29/24 11/29/24 18:59 06:59 18:59 Weight 117.934 kg PQRS Measure Charge Sheet Mode of Arrival: Ambulatory Comment: HISTORY OF PRESENT ILLNESS: A 69 yr old male w at side presents today w severe and chronic LBP > 1 yr secondary to radiculopathy, spondylosis and facet arthropathy without myelopathy for evaluation. He experienced 100% pain relief x 1h of previous BL MBB L5-S1 s/p procedure. Pt states pain level is provoked at 7 /10 in intensity, constant, localized in the lower lumbar, predominantly axial, throbbing in character without shooting pain Pain is provoked by chiropractic treatments, bearing down or eating. Pain is alleviated by PT x 5-6 wks which ended in May 2024, physician guided home stretches daily since Feb 2024, heat, ice, topical, repositioning and rest. Interventional procedures include KENDELL L5-S1 x1, BL MBB L5-S1 x1 Medications include BioFreeze, CBD Oil, Occ Cannabis use REVIEW OF ORGAN SYSTEMS: CONSTITUTIONAL: No fevers or chills. No recent weight loss. NEUROLOGICAL: + numbness and tingling along the distal extremities. No seizure disorders or headaches. MUSCULOSKELETAL: + pain PSYCHIATRIC: Denies current depression or suicidal thoughts. Physical Examinations : Constitutional : Cooperative , not in acute distress . Neurologic : Cranial nerve II to XII intact. No focal jayshree rological deficits. Psychiatric : alert & oriented x 3. Matching mood & appropriate affect. Judgment & insight intact. Musculoskeletal : Cervical Spine Motor strength in the deltoid and biceps: Normal right side. Normal Left side Motor strength biceps and the wrist extensors: Normal right side . Normal left side Motor strength in the triceps muscle: Normal right side. Normal left side Deep tendon reflexes: Normal at the biceps. Normal at Brachioradialis. Normal at triceps Vertebral body tenderness to deep pal pation over Cervical facet loading test: positive bilaterally Spurling test: positive bilaterally Neck distraction test: positive bilaterally Otoniel sign: positive bilaterally Lumbar spine Motor strength lower extremities ,thigh and legs 5/5 Right side , 5/5 Left side Deep tendon reflexes : Normal Knee Jerk. Normal Ankle Jerk Vertebral body tenderness over L5 Hawkins Test positive Lumbar facet Loading Test: positive Right / positive Left L4-L5, L5-S1 Range of motion of the lumbar spine Flexion 30 degrees, extension 10 degrees Straight Leg Raise test: Left> Right positive at 30 degrees Foster test: positive right / positive left. Severe tenderness over the Sacroiliac joint on the Right / Left sides Gaenslen test: positive bilaterally Seated flexion test: positive bilaterally. Sacral spine : Severe tenderness over the Sacroiliac joint: right side / left side Range of motion: Flexion of the lumbar spine <60 degrees Range of motion: Extension of the lumbar spine <20 degrees Gaenslen's Test positive Foster test: positive right side / left side Thigh Thrust Test Sacral Thrust Test Imaging: MRI non contrast lumbar spine from 02/06/24 reviewed Assessment/ Plan : L2-L5 radiculopathy, Facet arthropathy Recommendation of BL MBB L4-L5, L5-S1 #1. Will need to repeat BL MBB L4-L5 #2 prior to BL RFA. Use, side effects, adverse reactions, safe storage discussed. All questions answered. I have spent greater than 30 minutes on patient care today. Dr Frausto was available by phone for the evaluation of this patient. The time was used to review the medical records including relevant urine studies and Prescription history (MAPs), review of the available imaging, evaluation and examination of the patient, coordination of care with the medical staff and if applicable referring physicians, as well as creation of the medical record - Pain Location Bilateral Lower Back Non-Pharmacological Interventions: Chiropractic Treatment, Inactivity, Physical Therapy, Position/Reposition, Relaxation Technique, Sitting Pharmacological Interventions: Block, Epidural, PRN Medication, Topical Medication PQRS Narrative: Smoking Status Never smoker Blood Pressure 123/77 Pain Intensity [Bilateral 7 Lower Back] Scale Used Numeric (1 - 10) Hx Alcohol Use (MH) No Home Medications: Ambulatory Orders Aspirin [Adult Low Dose Aspirin EC] 81 mg PO DAILY 08/01/20 Tamsulosin HCl [Flomax] 0.4 mg PO DAILY 08/01/20 Rosuvastatin [Crestor] 20 mg PO DAILY 08/03/23 Apixaban [Eliquis] 5 mg PO BID 05/06/24 Pantoprazole [Protonix] 40 mg PO DAILY 30 Days #30 tab 06/19/24 HYDROcodone/APAP 10-325MG [Fellows 10-325] 1 tab PO Q4HR PRN 3 Days #18 tab 08/05/24 Controlled Substance Measures - Controlled Substance Measures Is patient prescribed a controlled substance at discharge?: No
== END ==
LOC: PNWHC3 09:17
PROVIDERS: ATTEND Specialist
DX: M47.26 Other spondylosis with radiculopathy, lumbar region (principal); M48.02 Spinal stenosis, cervical region; Z88.5 Allergy status to narcotic agent
CPT/HCPCS: 99211